=== PATIENT | male | born 1940 | race Caucasian/White ===

== ENCOUNTER 2023-07-11 08:00 | Outpatient (OUT) | payer OTHER, SELFPAY ==
[2023-07-11] MEDS: COVID VAC 23-24(12UP)MODERNA/PF 50 MCG/0.5 ML VIAL IM (15:00)
== END 2023-07-11 08:01 | disposition home or self-care (01) ==
LOC: VACCLI 09-02 15:11
DX: Z23 Encounter for immunization (principal)
CPT/HCPCS: 90480; 91322

== ENCOUNTER 2024-01-01 08:04 | Outpatient (OUT) | payer OTHER, SELFPAY ==
--- OUTSIDE RECORDS SUMMARY | 2024-01-01 08:09 | XMS_ITS | CCD ---
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 Name Role Phone SELF, REFERRED Referring Unavailable ELTAHAWY, EHAB A Admitting Unavailable ELTAHAWY, EHAB A Attending Unavailable SELF, REFERRED Primary Care Unavailable MONICA, DR GEORGE Admitting Unavailable MONICA, DR GEORGE Attending Unavailable MONICA, DR GEORGE Primary Care Unavailable MONICA, DR GEORGE Consulting Unavailable DR TANNER KNIGSTON Admitting Unavailable VASHTI, DR HART Attending Unavailable MONICA, DR GEORGE Primary Care Unavailable DR TANNER KINGSTON Consulting Unavailable HERMINIA LUA Attending Unavailable Problems Problem Classification Problem Date Documented Date Episodic/Chronic Chronic kidney disease (1 source) Chronic kidney disease, stage 2 (mild); Translations: [CHRONIC KIDNEY DISEASE STAGE 2 MILD] Onset: 07-23-2022 Chronic Coronary atherosclerosis and other heart disease (2 sources) Atherosclerotic heart disease of [place] coronary artery without angina pectoris; Translations: [Atherosclerotic heart disease of [place] coronary artery without angina pectoris] Onset: 04-24-2023 Chronic Disorders of lipid metabolism (2 sources) Mixed hyperlipidemia; Translations: [Mixed hyperlipidemia] Onset: 04-24-2023 Chronic Essential hypertension (2 sources) Essential (primary) hypertension; Translations: [Essential (primary) hypertension] Onset: 04-24-2023 Chronic Hypertension with complications and secondary hypertension (4 sources) Hypertensive chronic kidney disease with stage 1 through stage 4 chronic kidney disease, or unspecified chronic kidney disease; Translations: [HTN CKD W/STAGE 1-4 CKD/UNS CKD] Onset: 07-18-2022 Chronic Other screening for suspected conditions (not mental disorders or infectious disease) (1 source) Encounter for screening for lipoid disorders; Translations: [ENC SCREENING FOR LIPOID DISORDERS] Onset: 07-23-2022 Episodic Results Test Name Value Interpretation Reference Range Facility Office Visiton 04-24-2023 Follow-up visit [id number] Jordan Duran 1940 M Date Provider Department Center 04/24/2023 HERMINIA STONE [facility] No family history on file Level of Service:08980 [place] OFFICE/OUTPATIENT ESTABLISHED LOW MDM 20-29 MIN Reason for Visit and Comments: Follow-up [052635] - Yearly F/U Normal [facility] LIPID PROFILEon 07-18-2022 CHOL-HDL RATIO NORM SEE BELOW Normal [facility] Comment on above: Result Comment: 3.3 - 4.4 LOW RISK 4.4 - 7.1 AVERAGE RISK 7.1 - 11.0 MODERATE RISK >11.0 HIGH RISK Performed By: #### L IPID, CMP #### [facility] [address] [address] [address] Yessica Rodriguez Cholesterol [Mass/Vol] 172 mg/dL Normal <=200 [facility] Comment on above: Performed By: #### L IPID, CMP #### [facility] [address] [address] [address] Yessica Rodriguez Cholesterol in HDL [Mass/Vol] 74 mg/dL Critically high 40-60 [facility] Comment on above: Performed By: #### L IPID, CMP #### [facility] [address] [address] [address] Yessica Rodriguez Cholesterol in LDL [Mass/Vol] 79.4 mg/dL Normal [facility] Comment on above: Performed By: #### L IPID, CMP #### [facility] [address] [address] [address] Yessica Rodriguez Cholesterol.total/C holesterol in HDL [Mass ratio] 2.3 {ratio} Normal [facility] Comment on above: Performed By: #### L IPID, CMP #### [facility] [address] [address] [address] Yessica Rodriguez HDL NORMAL > or = 60 mg/dl - LO W CARDIOVASCULAR RISK <40 mg/dl - HIGH CARDIOVASCULAR RISK Normal [facility] Comment on above: Performed By: #### L IPID, CMP #### [facility] [address] [address] [address] Yessica Rodriguez LDL CALC NORMAL SEE BELOW Normal [facility] Comment on above: Result Comment: <100 mg/dl OPTIMAL 100 - 129 mg/dl NEAR OR ABOVE OPTIMAL 130 - 159 mg/dl BORDERLINE HIGH 160 - 189 mg/dl HIGH >190 mg/dl VERY HIGH Performed By: #### L IPID, CMP #### [facility] [address] [place] [address] Dr. Yessica Rodriguez Triglyceride [Mass/Vol] 93 mg/dL Normal <=150 [facility] Comment on above: Performed By: #### L IPID, CMP #### [facility] [address] [place] [address] Dr. Yessica Rodriguez VLDL CALC 18.6 mg/dL Normal [facility] Comment on above: Performed By: #### L IPID, CMP #### [facility] [address] [place] [address] Dr. Yessica Rodriguez PROF 14(COMP METB)on 022 Albumin [Mass/Vol] 4.0 g/dL Normal 3.4-5.0 [facility] Comment on above: Performed By: #### L IPID, CMP #### [facility] [address] [place] [address] Dr. Yessica Rodriguez Albumin/Globulin [Mass ratio] 1.4 {ratio} Normal [facility] Comment on above: Performed By: #### L IPID, CMP #### [facility] [address] [place] [address] Dr. Yessica Rodriguez ALP [Catalytic activity/Vol] 66 U/L Normal 46-116 [facility] Comment on above: Performed By: #### L IPID, CMP #### [facility] [address] [place] [address] Dr. Yessica Rodriguez ALT [Catalytic activity/Vol] 34 U/L Normal 16-63 [facility] Comment on above: Performed By: #### L IPID, CMP #### [facility] [address] [place] [address] Dr. Yessica Rodriguez Anion gap [Moles/Vol] 9.0 mmol/L Normal [facility] Comment on above: Performed By: #### L IPID, CMP #### [facility] [address] [place] [address] Dr. Yessica Rodriguez AST [Catalytic activity/Vol] 30 U/L Normal 15-37 [facility] Comment on above: Performed By: #### L IPID, CMP #### [facility] [address] [address] [address] Yessica Rodriguez Bilirubin [Mass/Vol] 0.9 mg/dL Normal 0.2-1.0 [facility] Comment on above: Performed By: #### L IPID, CMP #### [facility] [address] [place] [address] Dr. Yessica Rodriguez Calcium [Mass/Vol] 8.9 mg/dL Normal 8.5-10.1 [facility] Comment on above: Performed By: #### L IPID, CMP #### [facility] [address] [place] [address] Dr. Yessica Rodriguez Chloride [Moles/Vol] 101 mmol/L Normal 98-107 [facility] Comment on above: Performed By: #### L IPID, CMP #### [facility] [address] [place] [address] Dr. Yessica Rodriguez CO2 [Moles/Vol] 30.7 mmol/L Normal 21.0-32.0 [facility] Comment on above: Performed By: #### L IPID, CMP #### [facility] [address] [place] [address] Dr. Yessica Rodriguez Creatinine [Mass/Vol] 1.06 mg/dL Normal 0.70-1.30 [facility] Comment on above: Performed By: #### L IPID, CMP #### [facility] [address] [place] [address] Dr. Yessica Rodriguez EGFR-AF PAKISTANI >60 Normal >=60 [facility] Comment on above: Performed By: #### L IPID, CMP #### [facility] [address] [place] [address] Dr. Yessica Rodriguez EGFR-NON AF [place]ANI >60 Normal >=60 [facility] Comment on above: Performed By: #### L IPID, CMP #### [facility] [address] [address] [address] Yessica Rodriguez Globulin (S) [Mass/Vol] 2.9 g/dL Normal [facility] Comment on above: Performed By: #### L IPID, CMP #### [facility] [address] [address] [address] Yessica Rodriguez Glucose [Mass/Vol] 96 mg/dL Normal 74-106 [facility] Comment on above: Performed By: #### L IPID, CMP #### [facility] [address] [address] [address] Yessica Rodriguez Potassium [Moles/Vol] 3.7 mmol/L Normal 3.5-5.1 [facility] Comment on above: Performed By: #### L IPID, CMP #### [facility] [address] [place] [address] Dr. Yessica Rodriguez Protein [Mass/Vol] 6.9 g/dL Normal 6.4-8.2 [facility] Comment on above: Performed By: #### L IPID, CMP #### [facility] [address] [place] [address] Dr. Yessica Rodriguez Sodium [Moles/Vol] 137 mmol/L Normal 136-145 [facility] Comment on above: Performed By: #### L IPID, CMP #### [facility] [address] [place] [address] Dr. Yessica Rodriguez Urea nitrogen [Mass/Vol] 13.0 mg/dL Normal 7.0-18.0 [facility] Comment on above: Performed By: #### L IPID, CMP #### [facility] [address] [place] [address] Dr. Yessica Rodriguez Urea nitrogen/Creatinine [Mass ratio] 12.3 mg/mg Normal [facility] Comment on above: Performed By: #### L IPID, CMP #### [facility] [address] [place] [address] Dr. Yessica Rodriguez Cardiovascular Lab Reporton 07-06-2021 Cardiovascular Lab Report [facility] Patient Name: [facility] A MR #: [id number] Department of Physician: Helen Martinez M.D. Division of Service Date: 07/05/2021 Cardiology Birthdate: 1940 Adult Cardiovascular Room #: [facility] [address] [place], [place] [address] Cardiovascular Laboratory Report IMPRESSIONS: 1. 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 2. Qsvv-gd-hiueance disease of the left anterior descending coronary artery. 3. Ectasia of the right coronary artery with sluggish flow consistent with endothelial dysfunction. 4. Normal left ventricular systolic function by noninvasive imaging. RECOMMENDATIONS: 1. Will refer the patient to our electrophysiology colleagues for consideration of a permanent pacemaker given symptomatic bradyarrhythmias on beta lucy therapy. 2. Aggressive cardiovascular risk factor modification. 3. Continue guideline directed medical therapy including aspirin, high-intensity statin therapy, and angiotensin-converting enzyme inhibitor and ultimately a beta-lucy once the patient undergoes pacemaker placement. 4. Follow up with Dr. Cabrera in the next 1 to 2 months. 5. Follow up with his family physician as scheduled. PROCEDURES: Limited femoral angiography, bilateral selective coronary angiography, placement of a 6-[place] MynxGrip closure device. METHODS: After risks, benefits, and alternatives were explained, written informed consent was obtained. The patient was prepped and draped in usual sterile fashion over both groins. Using 1% lidocaine solution, local infiltration anesthesia was achieved. Using the modified Seldinger technique and a micropuncture kit, access of the right common femoral artery was obtained. A 6-Guatemalan 11 cm sheath was inserted without difficulty. Angiography via the femoral sheath was performed. Bilateral selective coronary angiography was performed using JL4 and JR4 catheters. After reviewing the images, it was elected to conclude the procedure. All catheters were removed. A 6-[place] MynxGrip closure device was deployed per protocol achieving optimal hemostasis. Overall, the patient tolerated the procedure well. There were no overt complications. He was to be transferred to the holding area in stable condition. FINDINGS: Hemodynamics. AO 106/57. LEFT VENTRICULOGRAPHY: This was not performed. Ejection fraction is normal by noninvasive imaging. CORONARY ARTERIES: Left main coronary artery. This arises from the left coronary cusp. It bifurcates into the left anterior descending and left circumflex coronary artery. This shows a 20% to 30% ostial stenosis. Left anterior descending coronary artery. This shows a 30% mid vessel stenosis and a 40% mid to distal vessel stenosis. It is a wrap-around vessel. Left circumflex coronary artery. This shows ectasia in the proximal and midportion of the vessels. It gives rise to a minute first obtuse marginal followed by a large branching second obtuse marginal. The 3rd obtuse marginal shows a 90% to 95% stenosis at the bifurcation in the distal portion of the vessel. This is a small caliber distal vessel measuring 2 mm or less in size. There is a prominent recurrent atrial branch arising from the AV groove. Right coronary artery. This is a large dominant vessel with an anterior takeoff. There slow flow consistent with endothelial dysfunction. No high-grade focal stenosis is seen. Limited femoral angiography shows a high bifurcation and anatomy suitable for closure device. INDICATIONS: Bradyarrhythmias, ventricular ectopy. Electronically Signed by: Jesse Cabrera M.D. 07/11/2021 06:14 P Jesse Cabrera M.D. Date Dict: 07/05/2021/01:59 P/Jesse Cabrera M.D. Date Trans: 07/06/2021 02:39 A/laina [id number] Normal [facility] Encounters Encounter Date Encounter Type Care Provider Facility Start: 04-24-2023 End: 04-24-2023 ambulatory HERMINIA LUA [facility] Start: 08-15-2022 End: 08-16-[address] TANNER KINGSTON Facility:[facility] Start: 07-18-2022 End: 07-19-[address] ARIEL ANDERSON Facility:[facility] Start: 07-05-2021 End: 07-06-2021 ambulatory REFERRED SELF Facility:[facility] Payers Date Payer Category Payer Medicare [id number] 1960 Self-pay 1940 Unknown [id number] 1940 Unknown [id number] Unknown [id number] Progress note 04-24-2023 Note Date & Type Note Facility 04-24-2023 Note Continue lipitor [facility] Progress note 04-24-2023 Note Date & Type Note Facility 04-24-2023 Note Coronary artery dise ase is stable without any concerning symptoms Continue GDMT- ASA, lipitor, metoprolol and lisinopril continue risk factor modifications- heart healthy diet, regular exercise as tolerated and continue all medications. [facility] Progress note 04-24-2023 Note Date & Type Note Facility 04-24-2023 Note Hypertension is well controlled at home and most likely white coat syndrome in office today Continue lisiopril, metoprolol [facility] Progress note 04-24-2023 Note Date & Type Note Facility 04-24-2023 Note [facility] PROGR ESS NOTE HPI: Joo Duran is a 82 y.o. male here for Follow-up (Yearly F/U) HPI 82 yo presents today for routine f/U for CAD, HTN, PVC Currently denied any activity limiting symptoms other than arthritis issues. 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 States b/p at home is typically 120-130/70 was 124/66 yesterday evening Review of Systems Constitutional: Negative. Respiratory: Negative. Cardiovascular: Negative. Neurological: Negative. All other systems reviewed and are negative. Visit Vitals BP 148/68 (BP Location: Left arm, Patient Position: Sitting) Pulse 71 Wt 74.4 kg (164 lb) SpO2 98% BMI 26.47 kg/m??? Smoking Status Former BSA 1.86 m??? No Known Allergies Medications: Current Outpatient Medications on File Prior to Visit Medication Sig Dispense Refill aspirin 81 mg EC tablet Take 1 tablet by mouth in the morning. atorvastatin (Lipitor) 40 mg tablet Take 1 tablet by mouth in the morning. lisinopril 40 mg tablet Take 40 mg by mouth in the morning. magnesium oxide 400 mg magnesium capsule Take 1 capsule every day by oral route. nabumetone (Relafen) 750 mg tablet Take 2 tablets by mouth in the morning. omeprazole (PriLOSEC) [address] capsule 20 mg 1 (one) time each day. ibuprofen (Motrin) 150 mg split tablet Use 1 capsule in the mouth or throat 1 (one) time each day. metoprolol tartrate (Lopressor) 25 mg tablet Take 1 tablet by mouth with breakfast and with evening meal. potassium gluconate 2.5 mEq tablet in the morning. potassium gluconate 2.5 mEq tablet Take 1 tablet by mouth in the morning. No current facility-administered medications on file prior to visit. Physical Exam: Constitutional: Appearance: Normal appearance. Without apparent distress HENT: Head: Normocephalic and atraumatic. Nose: Nose normal. Mouth/Throat: Mouth: Mucous membranes are moist. Eyes: Extraocular Movements: Extraocular movements intact. Conjunctiva/sclera: Conjunctivae normal. Neck: Vascular: No JVD. Cardiovascular: Rate and Rhythm: Normal rate and regular rhythm. Pulses: Dorsalis pedis pulses are 3 on the right side and 3on the left side. Posterior tibial pulses are 3 on the right side and 3 on the left side. Heart sounds: Normal heart sounds, S1 normal and S2 normal. Pulmonary: Effort: Pulmonary effort is normal. Breath sounds: Normal breath sounds. Abdominal: General: Bowel sounds are normal. Palpations: Abdomen is soft. Musculoskeletal: General: Normal range of motion. Cervical back: Normal range of motion. Right lower leg: No edema. Left lower leg: No edema. Skin: General: Skin is warm and dry. Capillary Refill: Capillary refill takes less than 2 seconds. Neurological: General: No focal deficit present. Mental Status: alert and oriented to person, place, and time. Psychiatric: Mood and Affect: Mood normal. Behavior: Behavior normal. Thought Content: Thought content normal. Judgment: Judgment normal. Labs: 07/18/22 BUN 13, CR 1.06- normal K+ 3.7 normal Liver function normal Chol 172, HDL 74, Trig 93, LDL 79.4- much improved 09/30/2019 Chol 246, Hdl 66, Trig 114, LDL 157.2 Last lab values have been reviewed CV Testing: Cardiovascular Laboratory Report 07/05/21 IMPRESSIONS: 1. 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 2. Dyap-ud-hswtsdqp disease of the left anterior descending coronary artery. 3. Ectasia of the right coronary artery with sluggish flow consistent with endothelial dysfunction. 4. Normal left ventricular systolic function by noninvasive imaging. RECOMMENDATIONS: 1. Will refer the patient to our electrophysiology colleagues for consideration of a permanent pacemaker given symptomatic bradyarrhythmias on beta lucy therapy. 2. Aggressive cardiovascular risk factor modification. 3. Continue guideline directed medical therapy including aspirin, high-intensity statin therapy, and angiotensin-converting enzyme inhibitor and ultimately a beta-lucy once the patient undergoes pacemaker placement. 4. Follow up with Dr. Cabrera in the next 1 to 2 months. 5. Follow up with his family physician as scheduled. PROCEDURES: Limited femoral angiography, bilateral selective coronary angiography, placement of a 6-[place] MynxGrip closure device. Echocardiogram 05/2021 Global left ventricular systolic function is normal; EF 60 to 65%. Normal diastolic function. Mild aortic regurgitation. Normal right-sided pressures. No pericardial effusion. nvestigations: Echo 10/30/21: The left ventricle is normal size. Global left ventricular systolic function is at lower limits of normal. The EF is 50 % visually. Interventricular septal thickness is increased in the proximal portion. The septum is abnormal in its motion; maybe du (more content not included)... [facility] Progress note 04-24-2023 Note Date & Type Note Facility 04-24-2023 Note Review of Systems All other systems reviewed and are negative. [facility] Summary Purpose Family History No Family History Records FoundNo Family History Records FoundNo Family History Records Found Advance Directives No Advanced Directives Records FoundNo Advanced Directives Records FoundNo Advanced Directives Records Found Additional Source Comments (unrecognized sect ion and content) No Status Records FoundNo Status Records FoundNo Status Records Found INFORMATION SOURCE (unrecogn ized section and content) DATE CREATED AUTHOR 07/11/2021 [facility] DATE CREATED AUTHOR AUTHOR'S ORGANIZ ATION 08/16/2022 [facility] DATE CREATED AUTHOR AUTHOR'S ORGANIZ ATION 04/25/2023 [facility] FOR RECORDS PERTAINING TO PATIENTS WHO ARE OR HAVE BEEN ENROLLED IN A CHEMICAL DEPENDENCY/SUBSTANCEABUSE PROGRAM, SOME INFORMATION MAY BE OMITTED. This clinical summary was aggregated from multiple sources. Caution should be exercised in using it in the provision of clinical care. This summary normalizes information from multiple sources, and as a consequence, information in this document may materially change the coding, format and clinical context of patient data. In addition, data may be omitted in some cases. CLINICAL DECISIONS SHOULD BE BASED ON THE PRIMARY CLINICAL RECORDS. [facility] [employer] [facility]. provides no warranty or guarantee of the accuracy or completeness of information in this document.
[2024-01-01 09:42] LABS: Alanine Aminotransferase 34 U/L (16-63); Albumin Globulin Ratio 1.1; Albumin Level 3.5 g/dL (3.4-5.0); Alkaline Phosphatase 95 U/L (46-116); Anion Gap 14.6; Aspartate Amino Transferase 42 U/L (15-37); BUN Creatinine Ratio 7.6; Carbon Dioxide 27.1 mmol/L (21.0-32.0); Chloride 102 mmol/L (98-107); Chol HDL Ratio 1.8; Cholesterol 152 mg/dL (<=200); Estimated GFR (African America >60 (>=60); Estimated GFR (Non-African Ame 52 (>=60); Globulin 3.1 g/dL; Glucose 94 mg/dL (74-106); HDL Cholesterol 86 mg/dL (40-60); Potassium 4.7 mmol/L (3.5-5.1); Sodium 139 mmol/L (136-145); Total Protein 6.6 g/dL (6.4-8.2); Triglycerides 36 mg/dL (<=150); VLDL CHOLESTEROL 7.2 mg/dL
== END 2024-01-01 08:05 | disposition home or self-care (01) ==
LOC: LAB 08:06
PROVIDERS: PCP Family Medicine; Visit Provider Family Medicine
DX: E78.2 Mixed hyperlipidemia (principal); I12.9 Hypertensive chronic kidney disease with stage 1 through stage 4 chronic kidney disease, or unspecified chronic kidney disease; N18.2 Chronic kidney disease, stage 2 (mild)
CPT/HCPCS: 36415; 80053; 80061

== ENCOUNTER 2025-01-22 08:25 | Outpatient (OUT) | payer OTHER, SELFPAY ==
[2025-01-22 09:24] LABS: Alanine Aminotransferase 39 U/L (16-63); Albumin Globulin Ratio 1.2; Albumin Level 3.7 g/dL (3.4-5.0); Alkaline Phosphatase 80 U/L (46-116); Anion Gap 12.5; Aspartate Amino Transferase 35 U/L (15-37); BUN Creatinine Ratio 12.1; Bilirubin Total 0.7 mg/dL (0.2-1.0); Calcium 8.7 mg/dL (8.5-10.1); Chloride 97 mmol/L (98-107); Chol HDL Ratio 1.9; Cholesterol 157 mg/dL (<=200); Estimated GFR (African America >60 (>=60 mL/min/1.73m^2); Estimated GFR (Non-African Ame >60 (>=60 mL/min/1.73m^2); Glucose 89 mg/dL (74-106); HDL Cholesterol 83 mg/dL (40-60); Potassium 4.5 mmol/L (3.5-5.1); Sodium 131 mmol/L (136-145); Total Protein 6.7 g/dL (6.4-8.2); Triglycerides 123 mg/dL (<=150); VLDL CHOLESTEROL 24.6 mg/dL
== END 2025-01-22 08:26 | disposition home or self-care (01) ==
LOC: LAB 08:30
PROVIDERS: PCP Family Medicine; Visit Provider Family Medicine
DX: E78.2 Mixed hyperlipidemia (principal); I12.9 Hypertensive chronic kidney disease with stage 1 through stage 4 chronic kidney disease, or unspecified chronic kidney disease; N18.31 Chronic kidney disease, stage 3a; Z13.1 Encounter for screening for diabetes mellitus
CPT/HCPCS: 36415; 80053; 80061

== ENCOUNTER 2025-06-02 07:48 | Outpatient (OUT) | payer OTHER, SELFPAY ==
--- OUTSIDE RECORDS SUMMARY | 2025-06-02 07:53 | XMS_ITS | CCD ---
Author Organization [facility] CliniSyin Care Team Providers Care Doctor Naturopathic Name Role Phone SELF, REFERRED Referring Unavailable ELTAHAWY, EHAB A Admitting Unavailable ELTAHAWY, EHAB A Attending Unavailable SELF, REFERRED Primary Care Unavailable MONICA, DR GEORGE Admitting Unavailable MONICA, DR GEORGE Attending Unavailable MONICA, DR GEORGE Primary Care Unavailable MONICA, DR GEORGE Consulting Unavailable VASHTI, DR HART Admitting Unavailable VASHTI, DR HART Attending Unavailable MONICA, DR GEORGE Primary Care Unavailable VASHTI, DR HART Consulting Unavailable Ariel Anderson MD Unavailable Ariel Anderson MD Primary Care Provider Ariel Anderson MD Unavailable [phone] Ariel Anderson MD Primary Care Provider Ariel Anderson MD Unavailable [phone] Ariel Anderson MD Primary Care Provider [phone] ARIEL ANDERSON Attending Unavailable ARIEL ANDERSON Attending Unavailable ARIEL ANDERSON Attending Unavailable Jr. Marcial Borrero DO Unavailable Jesse Cabrera MD Unavailable Antonina Albrecht MD Unavailable VALERIA STOKES Attending Unavailable Medications Current Medications Medication Drug Class(es) Dates Sig (Normalized) Sig (Original) amLODIPine 5 mg oral tablet (16 sources) Dihydropyridine Calcium Channel Irvin Start: 01-27-2024 End: 07-27-2025 take 1 tablet by mouth once daily amLODIPine (Norvasc) 5 MG tablet Indications: Essential hypertension Take 1 tablet (5 mg) by mouth Daily 90 tablet 1 01/28/2025 07/27/2025 Active aspirin 81 mg delayed release oral tablet (12 sources) Platelet Aggregation Inhibitor, Nonsteroidal Anti-inflammatory Drug aspirin 81 MG EC tablet 81 mg in the morning. Active atorvastatin 40 mg oral tablet (16 sources) HMG-CoA Reductase Inhibitor Start: 01-27-2024 End: 07-27-2025 take 1 tablet by mouth once daily atorvastatin (Lipitor) 40 MG tablet Indications: Mixed hyperlipidemia Take 1 tablet (40 mg) by mouth Daily 90 tablet 1 01/28/2025 07/27/2025 Active lisinopril 40 mg oral tablet (16 sources) Angiotensin Converting Enzyme Inhibitor Start: 01-27-2024 End: 07-27-2025 take 1 tablet by mouth once daily lisinopril 40 MG tablet Indications: Essential hypertension Take 1 tablet (40 mg) by mouth Daily 90 tablet 1 01/28/2025 07/27/2025 Active magnesium oxide 400 mg oral tablet (12 sources) take 1 tablet by mouth in the morning magnesium oxide (Mag-Ox) 400 MG tablet Take 400 mg by mouth in the morning. Active nabumetone 750 mg oral tablet (12 sources) Nonsteroidal Anti-inflammatory Drug Start: 01-27-2024 take 2 tablets by mouth once daily nabumetone (Relafen) 750 MG tablet Indications: Arthritis of carpometacarpal (CMC) joint of right thumb TAKE 2 TABLETS BY MOUTH EVERY DAY 180 tablet 1 01/27/2024 Active omeprazole 20 mg delayed release oral capsule (16 sources) Proton Pump Inhibitor Start: 01-27-2024 End: 07-27-2025 take 1 capsule by mouth before mealtime omeprazole (PriLOSEC) [address] capsule Indications: Gastroesophageal reflux disease without esophagitis Take 1 capsule (20 mg) by mouth in the morning. Take before meals. Do not crush or chew. 90 capsule 1 01/28/2025 07/27/2025 Active potassium gluconate 2.6 meq oral tablet (12 sources) take 1 tablet by mouth once daily Potassium Gluconate 2.5 MEQ tablet Take 1 tablet by mouth 1 (one) time each day. Active Problems Active Problems Problem Classification Problem Date Documented Date Episodic/Chronic Cardiac dysrhythmias (20 sources) Sick sinus syndrome; Translations: [Sick sinus syndrome] Onset: 08-21-2021 02-26-2023 Chronic Chronic kidney disease (17 sources) Chronic kidney disease, stage 2 (mild); Translations: [Chronic kidney disease stage 2] Onset: 07-23-2022 02-26-2023 Chronic Conduction disorders (12 sources) First degree atrioventricular block; Translations: [Atrioventricular block, first degree] Onset: 02-26-2023 02-26-2023 Chronic Coronary atherosclerosis and other heart disease (14 sources) Coronary arteriosclerosis; Translations: [Atherosclerotic heart disease of [place] coronary artery without angina pectoris] Onset: 08-21-2021 02-26-2023 Chronic Disorders of lipid metabolism (18 sources) Mixed hyperlipidemia; Translations: [Mixed hyperlipidemia] Onset: 04-24-2023 07-11-2023 Chronic Esophageal disorders (17 sources) Gastroesophageal reflux disease without esophagitis; Translations: [Gastro-esophageal reflux disease without esophagitis] Onset: 02-26-2023 02-26-2023 Chronic Essential hypertension (18 sources) Essential hypertension; Translations: [Essential (primary) hypertension] Onset: 02-26-2023 02-26-2023 Chronic Heart valve disorders (20 sources) Aortic incompetence, non-rheumatic ; Translations: [Nonrheumatic aortic (valve) insufficiency] Onset: 02-26-2023 02-26-2023 Chronic Heart valve disorders (2 sources) Cardiac murmur, unspecified; Translations: [Cardiac murmur, unspecified] Onset: 05-26-2025 Episodic Hyperplasia of prostate (12 sources) Benign prostatic hyperplasia; Translations: [Nodular prostate without lower urinary tract symptoms] Onset: 02-26-2023 02-26-2023 Chronic Hypertension with complications and secondary hypertension (20 sources) Hypertensive chronic kidney disease with stage 1 through stage 4 chronic kidney disease, or unspecified chronic kidney disease; Translations: [Hypertensive renal disease] Onset: 07-18-2022 Chronic Osteoarthritis (16 sources) 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; Translations: [Unilateral primary osteoarthritis of first carpometacarpal joint, right hand] Onset: 02-26-2023 02-26-2023 Chronic Other hereditary and degenerative nervous system conditions (12 sources) Essential tremor; Translations: [Essential tremor] Onset: 02-26-2023 02-26-2023 Chronic Other nutritional; endocrine; and metabolic disorders (16 sources) Overweight; Translations: [Overweight] Onset: 02-26-2023 02-26-2023 Episodic Other screening for suspected conditions (not mental disorders or infectious disease) (3 sources) Encounter for screening for lipoid disorders; Translations: [Patient encounter status] Onset: 07-23-2022 03-16-2025 Episodic Peripheral and visceral atherosclerosis (12 sources) Renal artery stenosis; Translations: [Atherosclerosis of renal artery] Onset: 06-26-2021 02-26-2023 Chronic Pulmonary heart disease (14 sources) Pulmonary hypertension; Translations: [Pulmonary hypertension, unspecified] Onset: 02-26-2023 02-26-2023 Chronic Residual codes; unclassified (12 sources) Dependence on enabling machine or device; Translations: [Dependence on other enabling machines and devices] Onset: 02-26-2023 02-26-2023 Chronic Residual codes; unclassified (12 sources) Obstructive sleep apnea syndrome; Translations: [Obstructive sleep apnea (adult) (pediatric)] Onset: 02-26-2023 02-26-2023 Chronic Residual codes; unclassified (12 sources) Insomnia; Translations: [Other insomnia] Onset: 02-26-2023 02-26-2023 Chronic Residual codes; unclassified (2 sources) Active advance directive (copy within chart) ; Translations: [Other specified health status] 03-16-2025 Episodic Screening and history of mental health and substance abuse codes (2 sources) Patient encounter status; Translations: [Encounter for screening examination for other mental health and behavioral disorders] 03-16-2025 Episodic Past or Other Problems Problem Classification Problem Date Documented Da te Episodic/Chronic Cardiac dysrhythmias (20 sources) Bradycardia; Translations: [Bradycardia, unspecified] Onset: 06-26-2021 Resolved: 02-17-2024 02-17-2024 Episodic Diabetes mellitus without complication (12 sources) Hyperglycemia; Translations: [Impaired fasting glucose] Onset: 02-26-2023 Resolved: 07-11-2023 07-11-2023 Episodic Genitourinary symptoms and ill-defined conditions (16 sources) Microalbuminuria; Translations: [Proteinuria, unspecified] Onset: 02-26-2023 02-26-2023 Episodic Mood disorders (12 sources) Mood disorders Onset: 02-17-2024 Resolved: 03-23-2025 02-17-2024 Other and unspecified benign neoplasm (12 sources) Polyp of colon; Translations: [Polyp of colon] Onset: 02-26-2023 02-26-2023 Episodic Other connective tissue disease (12 sources) Cramp in lower limb; Translations: [Sleep related leg cramps] Onset: 02-26-2023 Resolved: 02-17-2024 02-17-2024 Chronic Results Test Name Value Interpretation Reference Range Facility Office Visiton 05-26-2025 Follow-up visit [id number] Jordan Allen 1940 M Date Provider Department Center 05/26/2025 VALERIA OLIVERA CARD [facility] Family History Problem Relation Age of Onset Tuberculosis Father Family Status - Relation Status Age at Mother Father Level of Service:[address]126 [place] OFFICE/OUTPATIENT ESTABLISHED LOW MDM 20 MIN Reason for Visit and Comments: Follow-up [831049] - 1 year routine follow up Coronary Artery Disease [187] Hypertension [703019] Bradycardia [211321] Hyperlipidemia [182] First degree AV block [Other] Nonrheumatic mitral valve insufficiency [Other] Nonrheumatic mitral valve regurgitation [Other] Pulmonary Hypertension [818] Renal artery stenosis [Other] Sick sinus Syndrome [Other] Stage 2 chronic kidney disease [Other] Sleep Apnea [348] Obesity [[id number]] Normal [facility] ALL LIPID PROFILE (FASTING)o n 01-22-2025 CHOL HDL RATIO 1.9 [facility] Comment on above: 3.3 - 4.4 LOW RISK 4.4 - 7.1 AVERAGE RISK 7.1 - 11.0 MODERATE RISK >11.0 HIGH RISK Cholesterol [Mass/Vol] 157 mg/dL NINF - 200 mg/dL [facility] Cholesterol in HDL [Mass/Vol] 83 mg/dL High 40 - 60 mg/dL [facility] Comment on above: > or =60 mg/dl - LOW CARDIOVASCULAR RISK <40 mg/dl - HIGH CARDIOVASCULAR RISK Magnesium [Mass/Vol] 50 mg/dL [facility] Comment on above: <100 mg/dl OPTIMAL 100-129 mg/dl NEAR OR ABOVE OPTIMAL 130-159 mg/dl BORDERLINE HIGH 160-189 mg/dl HIGH >190 mg/dl VERY HIGH Triglyceride [Mass/Vol] 123 mg/dL NINF - 150 mg/dL [facility] VLDL CHOLESTEROL 24.6 mg/dL [facility] CMP (CMP) (FOR REMOTE FH C USE)on 01-22-2025 Albumin [Mass/Vol] 3.7 g/dL 3.4 - 5.0 g/dL NO [facility] ALBUMIN GLOBULIN RATIO 1.2 [facility] ALP [Catalytic activity/Vol] 80 U/L 46 - 116 U/L [facility] ALT [Catalytic activity/Vol] 39 U/L 16 - 63 U/L [facility] Anion gap [Moles/Vol] 12.5 mmol/L [facility] AST [Catalytic activity/Vol] 35 U/L 15 - 37 U/L [facility] Bilirubin [Mass/Vol] 0.7 mg/dL 0.2 - 1.0 mg/dL [facility] Calcium [Mass/Vol] 8.7 mg/dL 8.5 - 10. 1 mg/dL [facility] Chloride [Moles/Vol] 97 mmol/L Low 98 - 107 mmol/L [facility] CO2 [Moles/Vol] 26 mmol/L 21.0 - 32.0 mmol/L [facility] Creatinine [Mass/Vol] 1.07 mg/dL 0.70 - 1.30 mg/dL [facility] GFR/1.73 sq M.predicted CKD-EPI (S/P/Bld) [Vol rate/Area] >60 >=60 mL/min/1.73m 2 [facility] Globulin (S) [Mass/Vol] 3 g/dL [facility] Glucose [Mass/Vol] 89 mg/dL 74 - 106 mg/dL NO [facility] Potassium [Moles/Vol] 4.5 mmol/L 3.5 - 5.1 mmol/L [facility] Protein [Mass/Vol] 6.7 g/dL 6.4 - 8.2 g/dL NO [facility] Sodium [Moles/Vol] 131 mmol/L Low 136 - 145 mmol/L [facility] TBH EGFR-NON AF PU[place] RICAN >60 >=60 mL/min/1.73m 2 [facility] Urea nitrogen [Mass/Vol] 13 mg/dL 7.0 - 18.0 mg/dL [facility] Urea nitrogen/Creatinine [Mass ratio] 12.1 mg/mg [facility] No Panel Informationon 01-22 Interpretation and review of laboratory results Abnormal [facility] LIPID PROFILEon 07-18-2022 CHOL-HDL RATIO NORM SEE BELOW Normal [facility] Comment on above: Result Comment: 3.3 - 4.4 LOW RISK 4.4 - 7.1 AVERAGE RISK 7.1 - 11.0 MODERATE RISK >11.0 HIGH RISK Performed By: #### L IPID, CMP #### [facility] [address] [address] [address] Yessica Rdoriguez Cholesterol [Mass/Vol] 172 mg/dL Normal <=200 [facility] Comment on above: Performed By: #### L IPID, CMP #### [facility] [address] [address] [address] Yessica Rodriguez Cholesterol in HDL [Mass/Vol] 74 mg/dL Critically high 40-60 [facility] Comment on above: Performed By: #### L IPID, CMP #### [facility] [address] [address] [address] Yessica Rodriguez Cholesterol in LDL [Mass/Vol] 79.4 mg/dL Normal [facility] Comment on above: Performed By: #### L IPID, CMP #### [facility] [address] [address] [address] Yessica Rodriguez Cholesterol.total/C holesterol in HDL [Mass ratio] 2.3 {ratio} Normal [facility] Comment on above: Performed By: #### L IPID, CMP #### [facility] [address] [address] [address] Yessica Rodriguez HDL NORMAL > or = 60 mg/dl - LO W CARDIOVASCULAR RISK <40 mg/dl - HIGH CARDIOVASCULAR RISK Normal [facility] Comment on above: Performed By: #### L IPID, CMP #### [facility] [address] [address] [address] Yessica Rodriguez LDL CALC NORMAL SEE BELOW Normal [facility] Comment on above: Result Comment: <100 mg/dl OPTIMAL 100 - 129 mg/dl NEAR OR ABOVE OPTIMAL 130 - 159 mg/dl BORDERLINE HIGH 160 - 189 mg/dl HIGH >190 mg/dl VERY HIGH Performed By: #### L IPID, CMP #### [facility] [address] [address] [address] Yessica Rodriguez Triglyceride [Mass/Vol] 93 mg/dL Normal <=150 [facility] Comment on above: Performed By: #### L IPID, CMP #### [facility] [address] [place] [address] Dr. Yessica Rodriguez VLDL CALC 18.6 mg/dL Normal [facility] Comment on above: Performed By: #### L IPID, CMP #### [facility] [address] [place] [address] Dr. Yessica Rodriguez PROF 14(COMP METB)on 022 Albumin [Mass/Vol] 4.0 g/dL Normal 3.4-5.0 [facility] Comment on above: Performed By: #### L IPID, CMP #### [facility] [address] [place] [address] Dr. Yessica Rodriguez Albumin/Globulin [Mass ratio] 1.4 {ratio} Normal [facility] Comment on above: Performed By: #### L IPID, CMP #### [facility] [address] [place] [address] Dr. Yessica Rodriguez ALP [Catalytic activity/Vol] 66 U/L Normal 46-116 [facility] Comment on above: Performed By: #### L IPID, CMP #### [facility] [address] [place] [address] Dr. Yessica Rodriguez ALT [Catalytic activity/Vol] 34 U/L Normal 16-63 [facility] Comment on above: Performed By: #### L IPID, CMP #### [facility] [address] [place] [address] Dr. Yessica Rodriguez Anion gap [Moles/Vol] 9.0 mmol/L Normal [facility] Comment on above: Performed By: #### L IPID, CMP #### [facility] [address] [place] [address] Dr. Yessica Rodriguez AST [Catalytic activity/Vol] 30 U/L Normal 15-37 [facility] Comment on above: Performed By: #### L IPID, CMP #### [facility] [address] [place] [address] Dr. Yessica Rodriguez Bilirubin [Mass/Vol] 0.9 mg/dL Normal 0.2-1.0 [facility] Comment on above: Performed By: #### L IPID, CMP #### [facility] [address] [place] [address] Dr. Yessica Rodriguez Calcium [Mass/Vol] 8.9 mg/dL Normal 8.5-10.1 [facility] Comment on above: Performed By: #### L IPID, CMP #### [facility] [address] [place] [address] Dr. Yessica Rodriguez Chloride [Moles/Vol] 101 mmol/L Normal 98-107 [facility] Comment on above: Performed By: #### L IPID, CMP #### [facility] [address] [place] [address] Dr. Yessica Rodriguez CO2 [Moles/Vol] 30.7 mmol/L Normal 21.0-32.0 [facility] Comment on above: Performed By: #### L IPID, CMP #### [facility] [address] [place] [address] Dr. Yessica Rodriguez Creatinine [Mass/Vol] 1.06 mg/dL Normal 0.70-1.30 [facility] Comment on above: Performed By: #### L IPID, CMP #### [facility] [address] [place] [address] Dr. Yessica Rodriguez EGFR-AF [place] RICAN >60 Normal >=60 [facility] Comment on above: Performed By: #### L IPID, CMP #### [facility] [address] [place] [address] Dr. Yessica Rodriguez EGFR-NON AF PUERTO RICAN >60 Normal >=60 [facility] Comment on above: Performed By: #### L IPID, CMP #### [facility] [address] [place] [address] Dr. Yessica Rodriguez Globulin (S) [Mass/Vol] 2.9 g/dL Normal [facility] Comment on above: Performed By: #### L IPID, CMP #### [facility] [address] [place] [address] Dr. Yessica Rodriguez Glucose [Mass/Vol] 96 mg/dL Normal 74-106 [facility] Comment on above: Performed By: #### L IPID, CMP #### [facility] [address] [address] [address] Yessica Rodriguez Potassium [Moles/Vol] 3.7 mmol/L Normal 3.5-5.1 [facility] Comment on above: Performed By: #### L IPID, CMP #### [facility] [address] [address] [address] Yessica Rodriguez Protein [Mass/Vol] 6.9 g/dL Normal 6.4-8.2 [facility] Comment on above: Performed By: #### L IPID, CMP #### [facility] [address] [place] [address] Dr. Yessica Rodriguez Sodium [Moles/Vol] 137 mmol/L Normal 136-145 [facility] Comment on above: Performed By: #### L IPID, CMP #### [facility] [address] [place] [address] Dr. Yessica Rodriguez Urea nitrogen [Mass/Vol] 13.0 mg/dL Normal 7.0-18.0 [facility] Comment on above: Performed By: #### L IPID, CMP #### [facility] [address] [place] [address] Dr. Yessica Rodriguez Urea nitrogen/Creatinine [Mass ratio] 12.3 mg/mg Normal [facility] Comment on above: Performed By: #### L IPID, CMP #### [facility] [address] [place] [address] Dr. Yessica Rodriguez Cardiovascular Lab Reporton 07-06-2021 Cardiovascular Lab Report [facility] Patient Name: Joo Allen [facility] MR #: [id number] Department of Physician: Helen Martinez M.D. Division of Service Date: 07/05/2021 Cardiology Birthdate: 1940 Adult Cardiovascular Room #: [place] [address] Cardiovascular Laboratory Report IMPRESSIONS: 1. 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 2. Smre-np-vpdtcdsp disease of the left anterior descending coronary artery. 3. Ectasia of the right coronary artery with sluggish flow consistent with endothelial dysfunction. 4. Normal left ventricular systolic function by noninvasive imaging. RECOMMENDATIONS: 1. Will refer the patient to our electrophysiology colleagues for consideration of a permanent pacemaker given symptomatic bradyarrhythmias on beta irvin therapy. 2. Aggressive cardiovascular risk factor modification. 3. Continue guideline directed medical therapy including aspirin, high-intensity statin therapy, and angiotensin-converting enzyme inhibitor and ultimately a beta-irvin once the patient undergoes pacemaker placement. 4. Follow up with Dr. Cabrera in the next 1 to 2 months. 5. Follow up with his family physician as scheduled. PROCEDURES: Limited femoral angiography, bilateral selective coronary angiography, placement of a 6-[place] MynxGrip closure device. METHODS: After risks, benefits, and alternatives were explained, written informed consent was obtained. The patient was prepped and draped in usual sterile fashion over both groins. Using 1% lidocaine solution, local infiltration anesthesia was achieved. Using the modified Seldinger technique and a micropuncture kit, access of the right common femoral artery was obtained. A 6-[place]ican 11 cm sheath was inserted without difficulty. Angiography via the femoral sheath was performed. Bilateral selective coronary angiography was performed using JL4 and JR4 catheters. After reviewing the images, it was elected to conclude the procedure. All catheters were removed. A 6-[place] MynxGrip closure device was deployed per protocol [...] Cabrera M.D. Date Trans: 07/06/2021 02:39 A/laina [id number] Normal [facility] Vital Signs Date Time Vital Sign Value Performing Clinician Charlie duran 03-23-2025 10:240400 Body height 167.6 cm Ariel Anderson MD Work Phone: [facility] 03-23-2025 10:24-0400 Body mass index (BMI) [Ratio] 26.31 kg/m2 Ariel Anderson MD Work Phone: [facility] 03-23-2025 10:24-0400 Body weight 73.94 kg Ariel Anderson MD Work Phone: [facility] 03-23-2025 10:24-0400 Diastolic blood pressure 76 mm[Hg] Ariel Anderson MD Work Phone: [facility] 03-23-2025 10:24-0400 Heart rate 84 /min Ariel Anderson MD Work Phone: [facility] 03-23-2025 10:24-0400 SaO2% (BldA) [Mass fraction] 98 % Ariel Anderson MD Work Phone: [facility] 03-23-2025 10:24-0400 Systolic blood pressure 120 mm[Hg] Ariel Anderson MD Work Phone: [facility] 01-28-2025 08:53-0400 Body height 167.6 cm Ariel Anderson MD Work Phone: [facility] 01-28-2025 08:53-0400 Body mass index (BMI) [Ratio] 26.47 kg/m2 Ariel Anderson MD Work Phone: [facility] 01-28-2025 08:53-0400 Body weight 74.39 kg Ariel Anderson MD Work Phone: [facility] 01-28-2025 08:53-0400 Diastolic blood pressure 68 mm[Hg] Ariel Anderson MD Work Phone: [facility] 01-28-2025 08:53-0400 Heart rate 76 /min Ariel Anderson MD Work Phone: [facility] 01-28-2025 08:53-0400 SaO2% (BldA) [Mass fraction] 99 % Ariel Anderson MD Work Phone: [facility] 01-28-2025 08:53-0400 Systolic blood pressure 128 mm[Hg] Ariel Anderson MD Work Phone: [facility] 08-03-2024 13:57-0500 Body height 167.6 cm Ariel Anderson MD Work Phone: [facility] 08-03-2024 13:57-0500 Body mass index (BMI) [Ratio] 26.47 kg/m2 Ariel Anderson MD Work Phone: [facility] 08-03-2024 13:57-0500 Body weight 74.39 kg Ariel Anderson MD Work Phone: [facility] 08-03-2024 13:57-0500 Diastolic blood pressure 64 mm[Hg] Ariel Anderson MD Work Phone: [facility] 08-03-2024 13:57-0500 Heart rate 71 /min Ariel Anderson MD Work Phone: [facility] 08-03-2024 13:57-0500 SaO2% (BldA) [Mass fraction] 98 % Ariel Anderson MD Work Phone: [facility] 08-03-2024 13:57-0500 Systolic blood pressure 120 mm[Hg] Ariel Anderson MD Work Phone: [facility] Encounters Encounter Date Encounter Type Care Provider Facility Start: 05-26-2025 End: 05-26-2025 ambulatory [facility] Start: 03-23-2025 End: 03-23-2025 Bamboo flowsheet Ariel Anderson MD Work Phone: [facility] Start: 03-23-2025 End: 03-23-2025 Bamboo flowsheet Ariel Anderson MD Work Phone: [facility] Start: 03-23-2025 End: 03-23-2025 Patient encounter procedure Ariel Anderson MD Work Phone: [facility] Comment on above: Encounter for Medica re annual wellness exam (Primary Dx); Advance directive in chart; Encounter for screening for other disorder; Screening for alcohol problem; Over weight; Sick sinus syndrome (HCC); Pulmonary hypertension (HCC); Arthritis of carpometacarpal (CMC) joint of right thumb Start: 03-23-2025 End: 03-23-2025 ambulatory ARIEL ANDERSON Not Available Start: 01-28-2025 End: 01-28-2025 Bamboo flowsheet Ariel Anderson MD Work Phone: [facility] Start: 01-28-2025 End: 01-28-2025 Bamboo flowsheet Ariel Anderson MD Work Phone: [facility] Start: 01-28-2025 End: 01-28-2025 Office outpatient visit 25 minutes Ariel Anderson MD Work Phone: [facility] Comment on above: Essential hypertensi on (CMS/HCC); Mixed hyperlipidemia (CMS/HCC); Hypertensive nephropathy (CMS/HCC); Stage 2 chronic kidney disease; Microalbuminuria; Gastroesophageal reflux disease without esophagitis Start: 01-28-2025 End: 01-28-2025 ambulatory ARIEL ANDERSON Not Available Start: 01-22-2025 End: 01-22-2025 Clinisync Result Encounter Ariel Anderson MD Work Phone: [facility] Unsolicited Start: 01-22-2025 End: 01-22-2025 Clinisync Result Encounter Ariel Anderson MD Work Phone: [facility] Unsolicited Start: 01-04-2025 End: 01-04-2025 Refill Ariel Anderson MD Work Phone: [facility] Comment on above: Mixed hyperlipidemia (CMS/HCC); Essential hypertension (CMS/HCC) Start: 08-03-2024 End: 08-03-2024 Bamboo flowsheet Ariel Anderson MD Work Phone: [facility] Start: 08-03-2024 End: 08-03-2024 Bamboo flowsheet Ariel Anderson MD Work Phone: [facility] Start: 08-03-2024 End: 08-03-2024 Office outpatient visit 25 minutes Ariel Anderson MD Work Phone: [facility] Comment on above: Essential hypertensi on (CMS/HCC) (Primary Dx); Hypertensive nephropathy (CMS/HCC); Stage 3a chronic kidney disease (HCC) (CMS/HCC); Microalbuminuria; Mixed hyperlipidemia (CMS/HCC); Gastroesophageal reflux disease without esophagitis; Arthritis of carpometacarpal (CMC) joint of right thumb; Over weight; Nonrheumatic aortic valve insufficiency; Nonrheumatic mitral valve regurgitation; Coronary arteriosclerosis (CMS/HCC) Start: 08-03-2024 End: 11-18-2024 ambulatory ARIEL ANDERSON Not Available Start: 06-04-2024 End: 06-04-2024 Refill Ariel Anderson MD Work Phone: [facility] Comment on above: Essential hypertensi on (CMS/HCC); Mixed hyperlipidemia (CMS/HCC); Gastroesophageal reflux disease without esophagitis Start: 08-15-2022 End: 08-16-[address] TANNER KINGSTON Facility:[facility] Start: 07-18-2022 End: 07-19-[address] ARIEL ANDERSON Facility:[facility] Start: 07-05-2021 End: 07-06-2021 ambulatory REFERRED SELF Facility:[facility] Procedures Date Procedure Procedure Detail Performing Clinician Start: 01-22-2025 ALL LIPID PROFILE (FASTING) Ariel Anderson MD Work Phone: Start: 01-22-2025 [facility] CMP (CMP) (FOR R EMOTE [facility] USE) Ariel Anderson MD Work Phone: Plan of Treatment Date Care Activity Detail Author Start: 03-23-2026 Medicare Annual Well ness (AWV) Medicare Annual Wellness (AWV) [facility] Start: 07-27-2025 End: 07-27-2025 Patient encounter procedure 07/27/2025 10:00 AM EST Office Visit [facility] [address] [place] [id number] Ariel Anderson MD [address] [place] [address] (Fax) [facility] Start: 05-17-2025 Influenza vaccination [facility] Start: 03-23-2025 End: 03-23-2025 Patient encounter procedure 03/23/2025 9:30 AM EDT Office Visit [facility] [address] [place] [address] Ariel Anderson MD [address] [place] [address] (Fax) Encounter for Medicare annual wellness exam; Advance directive in chart; Encounter for screening for other disorder; Screening for alcohol problem; Over weight; Sick sinus syndrome (HCC) [facility] Comment on above: Encounter for Medica re annual wellness exam; Advance directive in chart; Encounter for screening for other disorder; Screening for alcohol problem; Over weight; Sick sinus syndrome (HCC) Start: 02-16-2025 Medicare Annual Well ness (AWV) Medicare Annual Wellness (AWV) [facility] Start: 02-16-2025 Pneumococcal Vaccine : 65+ Years (1 of 2 - PCV) Pneumococcal Vaccine: 65+ Years (1 of 2 - PCV) [facility] Comment on above: Postponed from 10/23 (Patient Refused) Postponed from 10/23 (Patient Refused) Start: 01-28-2025 End: 01-28-2025 Patient encounter procedure [facility] Comment on above: Essential hypertensi on (CMS/HCC); Mixed hyperlipidemia (CMS/HCC); Hypertensive nephropathy (CMS/HCC); Stage 3a chronic kidney disease (HCC) (CMS/HCC); Microalbuminuria; Gastroesophageal reflux disease without esophagitis Start: 08-04-2024 End: 08-04-2024 Patient encounter procedure 08/04/2024 9:30 AM EST Office Visit [facility] [address] [address] Ariel Anderson MD [address] [place] [address] (Fax) [facility] Start: 08-03-2024 End: 08-03-2024 Patient encounter procedure 08/03/2024 2:00 PM EST Office Visit [facility] [address] [address] Ariel Anderson MD [address] [address] (Fax) Essential hypertension (CMS/HCC); Hypertensive nephropathy (CMS/HCC); Stage 2 chronic kidney disease; Microalbuminuria; Mixed hyperlipidemia (CMS/HCC); Gastroesophageal reflux disease without esophagitis; Arthritis of carpometacarpal (CMC) joint of right thumb; Over weight [facility] Comment on above: Essential hypertensi on (CMS/HCC); Hypertensive nephropathy (CMS/HCC); Stage 2 chronic kidney disease; Microalbuminuria; Mixed hyperlipidemia (CMS/HCC); Gastroesophageal reflux disease without esophagitis; Arthritis of carpometacarpal (CMC) joint of right thumb; Over weight Start: 05-17-2024 Influenza vaccination Influenza Vacc ine (#1) [facility] Start: 1959 Pneumococcal Vaccine : 65+ Years (1 of 2 - PCV) Pneumococcal Vaccine: 65+ Years (1 of 2 - PCV) [facility] Immunizations Immunization Date Immunization Notes Care Provider Fa cili 08-15-2022 Moderna SARS-CoV-2 Vaccination Ariel Anderson MD Work Phone: [facility] 07-11-2022 influenza, injectabl e, quadrivalent, preservative free Ariel Anderson MD Work Phone: [facility] 07-11-2022 influenza virus vacc ine, unspecified formulation Ariel Anderson MD Work Phone: [facility] 08-04-2021 Influenza, Seasonal, Quadrivalent, Adjuvanted Ariel Anderson MD Work Phone: [facility] 09-13-2017 diphtheria, tetanus toxoids and acellular pertussis vaccine Ariel Anderson MD Work Phone: [facility] Payers Date Payer Category Payer Medicare (Managed Care) [employer] [id number] 2020 Unknown [employer] D REPLACED BY [facility] [id number] 2020-Present [address] [place] [address] [id number] 2020 Medicare [id number] 1960 Self-pay 1939 Unknown [id number] 1939 Unknown [id number] 1939 Unknown [id number] 1939 Unknown [id number] 1939 Unknown [id number] Unknown [id number] Social History Date Type Detail Facility Start: 02-26-[address] [facility] Never smoked tobacco [facility] Start: 02-26-2023 Tobacco use and exposure Smoke less tobacco non-user [facility] Start: 02-17-2024 End: 03-23-2025 Alcoholic beverage intake Current drinker of alcohol (finding) [facility] Start: 02-17-2024 End: 03-23-[address] [facility] Start: 02-17-2024 End: 03-23-2025 Tobacco use panel [facility] Start: 1940 Sex assigned at Not on file N [facility] Functional Status Date Assessment Result Facility 03-23-2025 Patient Health Quest ionnaire 2 item (PHQ-2) [Reported] [facility] 01-28-2025 Patient Health Quest ionnaire 2 item (PHQ-2) [Reported] [facility] Progress note 05-26-2025 Note Date & Type Note Facility 05-26-2025 Note Cardiovascular Medic ine [facility] [place] SUBJECTIVE Chief Complaint Patient presents with Follow-up 1 year routine follow up Coronary Artery Disease Hypertension Bradycardia Hyperlipidemia First degree AV block Nonrheumatic mitral valve insufficiency Nonrheumatic mitral valve regurgitation Pulmonary Hypertension Renal artery stenosis Sick sinus Syndrome Stage 2 chronic kidney disease Sleep Apnea Obesity Joo Allen is a 84 y.o. male here for follow-up. PMHx: CAD, HTN, PVCs, KORTNEY, bradycardia, HLD HPI 05/26/25 He has been doing well since last seen. Denies c/o CP, dyspnea, orthopnea, PND, LE edema, dizziness/LH, palpitations, syncope. BP at home running 120-130s/70s, HR 50-70s. He stays busy with house work, he just trimmed his trees. He mows his lawn, he has an acre of land, he will often push mow if he has the time. Denies any sx's with this. Problem List[1] Medical History[2] Family History[3] Social History[4] Allergies[5] OBJECTIVE Visit Vitals BP 136/71 (BP Location: Right arm, Patient Position: Sitting) Pulse 72 Ht 1.676 m (5' 6 ) Wt 73.9 kg (163 lb) SpO2 99% BMI 26.31 kg/m??? Smoking Status Former BSA 1.85 m??? Medications: Current Medications[6] Physical Exam Constitutional: Appearance: Normal appearance. He is normal weight. HENT: Head: Normocephalic and atraumatic. Right Ear: External ear normal. Left Ear: External ear normal. Eyes: Extraocular Movements: Extraocular movements intact. Pupils: Pupils are equal, round, and reactive to light. Neck: Vascular: No carotid bruit. Cardiovascular: Rate and Rhythm: Normal rate and regular rhythm. Pulses: Normal pulses. Heart sounds: Murmur heard. Pulmonary: Effort: Pulmonary effort is normal. Breath sounds: Normal breath sounds. Abdominal: General: Bowel sounds are normal. Palpations: Abdomen is soft. Musculoskeletal: General: Normal range of motion. Cervical back: Neck supple. Right lower leg: No edema. Left lower leg: No edema. Skin: General: Skin is warm and dry. Neurological: General: No focal deficit present. Mental Status: He is alert and oriented to person, place, and time. Psychiatric: Mood and Affect: Mood normal. Behavior: Behavior normal. Thought Content: Thought content normal. Judgment: Judgment normal. Labs: No results found for: EXTCMP , BMPR1A , CBCDIF , BNP , LASAP , RED No visits with results within 6 Month(s) from this visit. Latest known visit with results is: [facility] Encounter on 07/05/2021 Component Date Value Ventricular Rate 07/05/2021 76 Atrial Rate 07/05/2021 76 [place] Interval 07/05/2021 228 QRS DURATION 07/05/2021 84 QT Interval 07/05/2021 398 QTC CALCULATION(BAZETT) 07/05/2021 447 P [place] 07/05/2021 18 R-[place]ridge 07/05/2021 -5 T Wave [place] 07/05/2021 -14 Diagnosis 07/05/2021 Value:Sinus rhythm with 1st degree A-V block with frequent Premature ventricular complexes in a pattern of bigeminy Nonspecific ST abnormality Abnormal ECG No previous ECGs available Confirmed by MD FRAN, EHAB ([id number]) on 07/06/2021 9:22:30 AM 01/22/25 Cr 1.07, BUN 13, K 4.5, Na 131, eGFR >60, AST 35, ALT 39 Chol 157, trig 123, LDL 50, HDL 83 01/01/24 NA 139, K- 4.7 normal BUN 10, Cr 1.31, GFR 52- low AST 42, ALT 34, ALP- 95- stable liver function Chol 152, Trig 36, LDL 59, HDL 86- well controlled 07/18/22 BUN 13, CR 1.06- normal K+ 3.7 normal Liver function normal Chol 172, HDL 74, Trig 93, LDL 79.4- much improved 09/30/2019 Chol 246, Hdl 66, Trig 114, LDL 157.2 Last lab values have been reviewed Testing/Procedures: [facility] (2010): FINAL IMPRESSION: 1. Moderate, non-hemodynamically significant stenosis of the mid left anterior descending coronary artery assessed by fractional flow reserve. 2. Mild plaque of the left circumflex and right coronary arteries. 3. Low normal global left ventricular systolic function estimated at 50%. 4. Moderate systemic hypertension. 5. Normal left ventricular end-diastolic pressure. Stress test (2016): No ischemia Cardiovascular Laboratory Report 07/05/21 IMPRESSIONS: 1. 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 2. Qlkw-cj-uurovlsl disease of the left anterior descending coronary artery. 3. Ectasia of the right coronary artery with sluggish flow consistent with endothelial dysfunction. 4. Normal left ventricular systolic function by noninvasive imaging. RECOMMENDATIONS: 1. Will refer the patient to our electrophysiology colleagues for consideration of a permanent pacemaker given symptomatic bradyarrhythmias on beta irvin therapy. 2. Aggressive cardiovascular risk factor modification. 3. Continue guideline directed medical therapy including aspirin, high-intensity statin therapy, and angiotensin-converting enzyme inhibitor and ultimately a beta-irvin once the patient undergo (more content not included)... [facility] History of Present illness Narrative 03-23-2025 Ariel Anderson MD - 03/23/2025 9:30 AM EDT Note Date & Type Note Facility 03-23-2025 History of Presen t illness Narrative Images from the original note were not included. Joo Allen is a 84 y.o. male presents with chief complaint of Annual Exam HPI: History of Present Illness I have reviewed and reconciled the history and medication list with the patient today. CURRENT PCP/CARE TEAM: Patient Care Team: Ariel Anderson MD as PCP - General (Family Medicine) Ariel Anderson MD as PCP - [facility] aMrcial Borrero DO as Referring Physician (Orthopaedic Surgery) Jesse Cabrera MD as Referring Physician (Cardiology) Antonina Alrbecht MD as Referring Physician (Dermatology) Over the past 2 weeks, how often have you been bothered by any of the following problems? Little interest or pleasure in doing things: Not at all Feeling down, depressed, or hopeless: Several days Patient Health Questionnaire-2 Score: 1 Over the past 2 weeks, how often have you been bothered by any of the following problems? Trouble falling or staying asleep, or sleeping too much: Not at all Feeling tired or having little energy: Several days Poor appetite or overeating: Several days Feeling bad about yourself - or that you are a failure or have let yourself or your family down: Not at all Trouble concentrating on things, such as reading the newspaper or watching television: Not at all Moving or speaking so slowly that other people could have noticed? Or the opposite - being so fidgety or restless that you have been moving around a lot more than usual.: Not at all Thoughts that you would be better off or hurting yourself in some way: Not at all Patient Health Questionnaire-9 Score: 3 Health Risk Assessment Form Do you need help eating, bathing, using the toilet, dressing, or getting around your home?: No Can you prepare your own meals?: Yes Can you do your own housework without help?: Yes Can you shop for groceries or clothes without help?: Yes Do you exercise for about 20 minutes 3 or more days a week?: Yes How confident are you that you can control and manage most of your health problems?: Very confident Can you mange your money, credit cards and accounts, pay bills and taxes?: Yes Vision Screening: Yes, patient sees regular 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 valve repairer/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 Hearing Screening: Not done Cognitive Screening Self Assessment: No concerns rasied by family members, friends, or caretakers Three Word Registration: Village, Kitchen, Baby Clock Drawing: Normal Clock - 2 Three Word Recall: All 3 words correct - 3 Total Score (0-5 Points): 5 Pain Assessment Pain Score: 0 - No pain HISTORIES: PAST MEDICAL HISTORY: Past Medical History: Diagnosis Date Bradycardia 05/2021 3 days GERD (gastroesophageal reflux disease) Hypertension Kidney disease Stage 3A chronic Sleep apnea Synovial cyst of knee, right Tuberculosis, pulmonary SURGICAL HISTORY: Past Surgical History: Procedure Laterality Date CARPAL TUNNEL RELEASE Left 06/13/2023 DR BORRERO COLONOSCOPY 2016 [place], polyps were removed HEART CATH 2007 [place] HERNIA REPAIR Bilateral 1998 SHOULDER SURGERY Left 2010 SOCIAL HISTORY: Social History Tobacco Use Smoking status: Never Smokeless tobacco: Never Substance Use Topics Alcohol use: Yes Alcohol/week: 15.0 standard drinks of alcohol Types: 15 Standard drinks or equivalent per week Depression: Not at risk (03/23/2025) PHQ-2 PHQ-2 Score: 1 FAMILY HISTORY: Family History Problem Relation Name Age of Onset Heart disease Mother Cancer Mother No Known Problems Brother No Known Problems Daughter MEDICATIONS: Current Outpatient Medications Medication Instructions amLODIPine (NORVASC) 5 mg, Oral, Daily aspirin 81 mg, Daily atorvastatin (LIPITOR) 40 mg, Oral, Daily lisinopril 40 mg, Oral, Daily magnesium oxide (MAG-OX) 400 mg, Daily nabumetone (Relafen) 750 MG tablet TAKE 2 TABLETS BY MOUTH EVERY DAY omeprazole (PRILOSEC) 20 mg, Oral, Daily before breakfast, Do not crush or chew. Potassium Gluconate 2.5 MEQ tablet 1 tablet, Daily ALLERGIES: No Known Allergies PHYSICAL EXAM: Visit Vitals BP 120/76 Pulse 84 Ht 5' 6 Wt 163 lb SpO2 98% BMI 26.31 kg/m Smoking Status Never BSA 1.85 m BP Readings from Last 3 Encounters: 03/23/25 120/76 01/28/25 128/68 08/03/24 120/64 Wt Readings from Last 3 Encounters: 03/23/25 163 lb 01/28/25 164 lb 08/03/24 164 lb Physical Exam The patient is pleasant and in no acute distress. The head is normocephalic and atraumatic. Both eyes appear grossly normal without obvious lid pathology or icterus. Both ears hearing is grossly intact. The neck is supple and trachea is midline. No masses are appreciated. The anterior cervical lymphatics demonstrates shoddy bilateral nontender lymphadenopathy. There is no supraclavicular lymphadenopathy. The heart is regular rate and rhythm without S3, S4. No murmur. The patient has normal respiratory pattern. The breath sounds are are diffusely decreased but symmetrical without evidence of rhonchi or rales. No wheezing. The skin is warm and dry. The lower extremities have trace edema. Neurologic screening exam is nonfocal. The patient is alert. There is no overt gross evidence of cognitive impairment, although there is some minor word search noted The patient has good eye contact and speech is clear. Appropriate affect. Results ASSESSMENT AND PLAN: Assessment/Plan 1. Encounter for Medicare annual wellness exam (Primary) The patient is here for their Annual Medicare Wellness visit. Demographics were updated. Self-assessment was completed and reviewed. Past medical, family, and social history were updated. The medication list updated and reviewed by the doctor. A list of other current medical providers is established and updated. Time was spent discussing health maintenance issues, ordering testing as appropriate, and a schedule was reviewed regarding recommended screening. We discussed safety issues and fall risk. Depression screening was completed and addressed as appropriate. Fall screening was completed and addressed. Cognitive function was assessed by direct observation, cognitive screening as indicated, and assessment of ability to perform ADL's. The BMI and discussed. Major risk factors for chronic disease including family history were discussed. An after visit summary is made available to the patient 2. Advance directive in chart No changes to advanced directives 3. Encounter for screening for other disorder Clinically insignificant depression screening 4. Screening for alcohol problem Negative alcohol screening 5. Over weight Encouraged continue activity around the home 6. Sick sinus syndrome (HCC) Chronic problem, stable, monitor longitudinally and comanaged with Cardiology. 7. Pulmonary hypertension (HCC) Chronic problem, stable, monitor longitudinally and comanaged with Cardiology. 8. Arthritis of carpometacarpal (CMC) joint of right thumb Chronic problem, stable, monitor longitudinally documented in this encounter [facility] History of Present illness Narrative 01-28-2025 Ariel Anderson MD - 01/28/2025 9:00 AM EDT Note Date & Type Note Facility 01-28-2025 History of Presen t illness Narrative Patient ID: Joo Allen is a 84 y.o. male who presents for: Hypertension Patient is here for follow-up of elevated blood pressure. He is exercising and is adherent to a low-salt diet. Blood pressure is well controlled at home. Cardiac symptoms: none. Patient denies chest pain, dyspnea, irregular heart beat, lower extremity edema, and palpitations. Cardiovascular risk factors: advanced age (older than 55 for men, 65 for women), dyslipidemia, hypertension, male gender, microalbuminuria, and sedentary lifestyle. Use of agents associated with hypertension: none. History of target organ damage: chronic kidney disease. Hyperlipidemia Pt who presents for follow-up of dyslipidemia. A repeat fasting lipid profile was done. The patient does not use medications that may worsen dyslipidemias (corticosteroids, progestins, anabolic steroids, diuretics, beta-blockers, amiodarone, cyclosporine, olanzapine). Exercise: daily. GERD Paitent complains of heartburn. This has been associated with no other symptoms. He/She denies abdominal bloating, belching and eructation, difficulty swallowing, dysphagia, and hoarseness. Symptoms have been present for several years. He/She denies dysphagia. He/She has not lost weight. He/She denies melena, hematochezia, hematemesis, and coffee ground emesis. Review of Systems Constitutional: Negative for activity change and fatigue. Respiratory: Negative for cough, shortness of breath and wheezing. Cardiovascular: Negative for chest pain, palpitations and leg swelling. Neurological: Positive for light-headedness. Negative for headaches. Objective The patient is pleasant and in no acute distress. The neck is supple and trachea is midline. No masses are appreciated. The heart is regular rate and rhythm without S3, S4. No murmur. The patient has normal respiratory pattern. The breath sounds are symmetrical without evidence of rhonchi or rales. No wheezing. The skin is warm and dry. The lower extremities have trace edema. The patient has good eye contact and speech is clear. Appropriate affect. 01/23/2023 12:00 PM 02/26/2023 2:14 PM 06/11/2023 9:24 AM 07/18/2023 8:51 AM 01/27/2024 8:52 AM 02/17/2024 10:01 AM 08/03/2024 1:57 PM Vitals BMI 27.12 kg/m2 27.12 kg/m2 25.82 kg/m2 25.66 kg/m2 25.66 kg/m2 26.47 kg/m2 26.47 kg/m2 BSA (m2) 1.88 m2 1.88 m2 1.84 m2 1.83 m2 1.83 m2 1.86 m2 1.86 m2 Systolic 126 128 128 130 120 Diastolic 70 70 68 78 64 Heart Rate 81 80 81 71 SpO2 98 % 97 % 98 % 98 % Height (in) 5' 6 5' 6 5' 6 5' 6 5' 6 5' 6 5' 6 Weight (lb) 168 168 160 159 159 164 164 Visit Report Report Report Report Report Report No Known Allergies Current Outpatient Medications on File Prior to Visit Medication Sig Dispense Refill amLODIPine (Norvasc) 5 MG tablet Take 1 tablet (5 mg) by mouth Daily 90 tablet 1 aspirin 81 MG EC tablet 81 mg in the morning. atorvastatin (Lipitor) 40 MG tablet Take 1 tablet (40 mg) by mouth Daily 90 tablet 1 lisinopril 40 MG tablet Take 1 tablet (40 mg) by mouth Daily 90 tablet 1 magnesium oxide (Mag-Ox) 400 MG tablet Take 400 mg by mouth in the morning. nabumetone (Relafen) 750 MG tablet TAKE 2 TABLETS BY MOUTH EVERY DAY 180 tablet 1 omeprazole (PriLOSEC) [address] capsule Take 1 capsule (20 mg) by mouth in the morning. Take before meals. Do not crush or chew.. 90 capsule 1 Potassium Gluconate 2.5 MEQ tablet Take 1 tablet by mouth 1 (one) time each day. No current facility-administered medications on file prior to visit. 1. Essential hypertension ([facility]) Chronic problem, stable, to goal - lisinopril 40 MG tablet; Take 1 tablet (40 mg) by mouth Daily Dispense: 90 tablet; Refill: 1 - amLODIPine (Norvasc) 5 MG tablet; Take 1 tablet (5 mg) by mouth Daily Dispense: 90 tablet; Refill: 1 2. Mixed hyperlipidemia ([facility]) Reviewed labs with patient in essentially to goal. - atorvastatin (Lipitor) 40 MG tablet; Take 1 tablet (40 mg) by mouth Daily Dispense: 90 tablet; Refill: 1 3. Hypertensive nephropathy ([facility]) Chronic problem, stable, demonstrating end organ damage from their current state of health. I stressed the importance of keeping blood pressure and blood sugar to goal, staying well hydrated, avoiding NSAIDs, and aerobic exercises as tolerated. Continue to monitor longitudinally. 4. Stage 3a chronic kidney disease (HCC) (CMS/[facility]) Chronic problem that has surprisingly improved for him. He has improved into stage 2 chronic kidney disease. This has been changed in his chronic problem list. 5. Microalbuminuria Chronic problem that was still present last fall. Chronic problem, defining an aspect the nephropathy, with significant risk, uncertain progression requiring longitudinal monitoring, and moderate decision making. Microalbuminuria describes a moderate increase in the level of urine albumin. Normally, the kidneys filter albumin, so if the kidney leaks small amounts of albumin into the urine then it is a indicator of chronic kidney disease. Microalbuminuria is an independent indicator of increased cardiovascular risk among individuals and therefore can be used for risk stratification for cardiovascular disease. 6. Gastroesophageal reflux disease without esophagitis Chronic problem these doing well with as long as he uses his medication. In prescribing a renewal to their current medication, consideration of the following encompasses moderate decision making; the current prescriptions and supplements, the current allergies and medication intolerances, current medical conditions, and potential drug interactions. The patient was given a chance to ask questions today and all questions were answered. - omeprazole (PriLOSEC) [address] capsule; Take 1 capsule (20 mg) by mouth in the morning. Take before meals. Do not crush or chew. Dispense: 90 capsule; Refill: 1 Chronic problem The patient meets the criteria for polypharmacy; 5 or more prescriptions or multi-morbidity defined as 5 or more diagnoses. Polypharmacy can significantly increase the risk of adverse drug events and negatively impact adherence. Consideration of factors such as clinician agreement, patient perspective, and de-prescribing, as appropriate can improve patient outcomes while simplifying care. This requires longitudinal monitoring as there is at least a moderate risk of morbidity and requires at least a moderate degree of evaluation and management. documented in this encounter [facility] History of Present illness Narrative 08-03-2024 Ariel Anderson MD - 08/03/2024 2:00 PM EST Note Date & Type Note Facility 08-03-2024 History of Presen t illness Narrative Images from the original note were not included. Patient ID: Joo Allen is a 83 y.o. male who presents for: Hypertension Patient is here for follow-up of elevated blood pressure. He is exercising and is adherent to a low-salt diet. Blood pressure is well controlled at home. Cardiac symptoms: none. Patient denies chest pain, dyspnea, irregular heart beat, lower extremity edema, and palpitations. Cardiovascular risk factors: advanced age (older than 55 for men, 65 for women), dyslipidemia, hypertension, male gender, and microalbuminuria. Use of agents associated with hypertension: none. History of target organ damage: none. Hyperlipidemia Pt who presents for follow-up of dyslipidemia. A repeat fasting lipid profile was not done. The patient does not use medications that may worsen dyslipidemias (corticosteroids, progestins, anabolic steroids, diuretics, beta-blockers, amiodarone, cyclosporine, olanzapine). Exercise: daily. GERD Paitent complains of heartburn. This has been associated with no other symptoms. He/She denies abdominal bloating, belching and eructation, dysphagia, hoarseness, and nausea. Symptoms have been present for several years . He/She denies dysphagia. He/She has not lost weight. He/She denies melena, hematochezia, hematemesis, and coffee ground emesis. Chronic Pain: Pt is here for follow-up of chronic pain related to arthritis in his thumb. Her/His pain is waxing and waning. Pain is usually 1/10, described as aching and throbbing and occurs when active. Pt has been taking nabumetone for this problem. Review of Systems Constitutional: Negative for activity change and fatigue. Respiratory: Negative for cough, shortness of breath and wheezing. Cardiovascular: Negative for chest pain, palpitations and leg swelling. Neurological: Negative for light-headedness and headaches. Objective The patient is pleasant and in no acute distress. The neck is supple and trachea is midline. No masses are appreciated. The heart is regular rate and rhythm without S3, S4. He has a 3/6 systolic murmur it is easily heard on both sides of the sternum but is A bit louder in the right 2nd interspace. The patient has normal respiratory pattern. The breath sounds are symmetrical without evidence of rhonchi or rales. No wheezing. The skin is warm and dry. The lower extremities have trace edema. The patient has good eye contact and speech is clear. Appropriate affect. Visit Vitals BP 120/64 Pulse 71 Ht 5' 6 Wt 164 lb SpO2 98% BMI 26.47 kg/m Smoking Status Never BSA 1.86 m No Known Allergies Current Outpatient Medications on File Prior to Visit Medication Sig Dispense Refill aspirin 81 MG EC tablet 81 mg in the morning. magnesium oxide (Mag-Ox) 400 MG tablet Take 400 mg by mouth in the morning. nabumetone (Relafen) 750 MG tablet TAKE 2 TABLETS BY MOUTH EVERY DAY 180 tablet 1 Potassium Gluconate 2.5 MEQ tablet Take 1 tablet by mouth 1 (one) time each day. [DISCONTINUED] amLODIPine (Norvasc) 5 MG tablet Take 1 tablet (5 mg) by mouth Daily 90 tablet 1 [DISCONTINUED] atorvastatin (Lipitor) 40 MG tablet Take 1 tablet (40 mg) by mouth Daily 90 tablet 1 [DISCONTINUED] lisinopril 40 MG tablet Take 1 tablet (40 mg) by mouth Daily 90 tablet 1 [DISCONTINUED] omeprazole (PriLOSEC) [address] capsule Take 1 capsule (20 mg) by mouth in the morning. Take before meals. Do not crush or chew.. 90 capsule 1 No current facility-administered medications on file prior to visit. 1. Essential hypertension (CMS/HCC) (Primary) Chronic problem, stable, to goal - lisinopril 40 MG tablet; Take 1 tablet (40 mg) by mouth Daily Dispense: 90 tablet; Refill: 1 - amLODIPine (Norvasc) 5 MG tablet; Take 1 tablet (5 mg) by mouth Daily Dispense: 90 tablet; Refill: 1 2. Hypertensive nephropathy (CMS/HCC) Chronic problem, unstable, demonstrating progression of end organ damage from their current state of health. I have independently reviewed and interpreted has appropriate, tests that were performed or ordered by another health day care assistant. These are documented in the electronic health record. These were reviewed with the patient. I stressed the importance of keeping blood pressure and blood sugar to goal, staying well hydrated, avoiding NSAIDs, and aerobic exercises as tolerated. Continue to monitor longitudinally. 3. Stage 3 chronic kidney disease Chronic problem, unstable, progressing, defining the end organ damage of the nephropathy. I stressed the importance of keeping blood pressure and blood sugar to goal, staying well hydrated, and aerobic exercises as tolerated. Continue to monitor longitudinally 4. Microalbuminuria Chronic problem, defining an aspect the nephropathy, with significant risk, uncertain progression requiring longitudinal monitoring, and moderate decision making. Microalbuminuria describes a moderate increase in the level of urine albumin. Normally, the kidneys filter albumin, so if the kidney leaks small amounts of albumin into the urine then it is a indicator of chronic kidney disease. Microalbuminuria is an independent indicator of increased cardiovascular risk among individuals and therefore can be used for risk stratification for cardiovascular disease. 5. Mixed hyperlipidemia (CMS/HCC) Chronic, stable, to goal based on outside labs that were reviewed - atorvastatin (Lipitor) 40 MG tablet; Take 1 tablet (40 mg) by mouth Daily Dispense: 90 tablet; Refill: 1 6. Gastroesophageal reflux disease without esophagitis Chronic problem, stable, asymptomatic In prescribing a renewal to their current medication, consideration of the following encompasses moderate decision making; the current prescriptions and supplements, the current allergies and medication intolerances, current medical conditions, and potential drug interactions. Any changes to risks, benefits, and reason for renewing their current medication due to the above were discussed. The patient was given a chance to ask questions today and all questions were answered. The patient is to contact us if any other questions arise or if any problems occur. (Utilizing the original guidelines or the 2020 office/outpatient code guidelines for selecting the level of E/M service, In both sets of guidelines, prescription drug management appears in the moderate medical decision making (MDM) row. Neither the original guidelines nor the new guidelines state that a new prescription or change is needed in order to credit prescription drug management) - omeprazole (PriLOSEC) [address] capsule; Take 1 capsule (20 mg) by mouth in the morning. Take before meals. Do not crush or chew.. Dispense: 90 capsule; Refill: 1 7. Arthritis of carpometacarpal (CMC) joint of right thumb Chronic problem, stable. He does use the nabumetone that was prescribed twice daily but is only using it once daily and some days he does not use it at all. He is getting good relief. 8. Over weight 9. Nonrheumatic aortic valve insufficiency Chronic problem that appears to be stable. I was able to locate the cardiology notes in the medical record and I read them and reviewed. They are planning on doing echocardiogram at his next scheduled visit. Since he currently does not demonstrate signs of congestive heart failure I agree. He had questions about what congestive heart failure would look like and I described the basics to him. 10. Nonrheumatic mitral valve regurgitation As above 11. Coronary arteriosclerosis (CMS/HCC) Chronic problem, stable, no angina or anginal equivalents. documented in this encounter [facility] Healthcare Evaluation note Note Date & Type Note Facility Evaluation note Diagnosis Essential hypertension (CMS/HCC)- Primary Unspecified essential hypertension Hypertensive nephropathy (CMS/HCC) Unspecified hypertensive kidney disease with chronic kidney disease stage I through stage IV, or unspecified Stage 3a chronic kidney disease (HCC) (CMS/HCC) Microalbuminuria Proteinuria Mixed hyperlipidemia (CMS/HCC) Mixed hyperlipidemia Gastroesophageal reflux disease without esophagitis Esophageal reflux Arthritis of carpometacarpal (CMC) joint of right thumb Over weight Overweight Nonrheumatic aortic valve insufficiency Nonrheumatic mitral valve regurgitation Coronary arteriosclerosis (CMS/HCC) Coronary atherosclerosis of unspecified type of vessel, walker river or graft documented in this encounter [facility] Healthcare Evaluation note Note Date & Type Note Facility Evaluation note Diagnosis Essential hypertension (CMS/HCC) Unspecified essential hypertension Mixed hyperlipidemia (CMS/HCC) Mixed hyperlipidemia Gastroesophageal reflux disease without esophagitis Esophageal reflux documented in this encounter [facility] Healthcare Evaluation note Note Date & Type Note Facility Evaluation note Diagnosis Mixed hyperlipidemia (CMS/HCC) Mixed hyperlipidemia Essential hypertension (CMS/HCC) Unspecified essential hypertension documented in this encounter [facility] Healthcare Evaluation note Note Date & Type Note Facility Evaluation note Diagnosis Essential hypertension (CMS/HCC) Unspecified essential hypertension Mixed hyperlipidemia (CMS/HCC) Mixed hyperlipidemia Hypertensive nephropathy (CMS/HCC) Unspecified hypertensive kidney disease with chronic kidney disease stage I through stage IV, or unspecified Stage 2 chronic kidney disease Microalbuminuria Proteinuria Gastroesophageal reflux disease without esophagitis Esophageal reflux documented in this encounter [facility] Evaluation note Note Date & Type Note Facility Evaluation note Diagnosis Encounter for Medicare annual wellness exam- Primary Advance directive in chart Encounter for screening for other disorder Screening for alcohol problem Screening for alcoholism Over weight Overweight Sick sinus syndrome (HCC) Sinoatrial node dysfunction Pulmonary hypertension (HCC) Other chronic pulmonary heart diseases Arthritis of carpometacarpal (CMC) joint of right thumb documented in this encounter [facility] Summary Purpose Family History No Family History Records FoundNo Family History Records FoundNo Family History Records FoundNo Family History Records Found Advance Directives No Advanced Directives Records FoundDocuments on File Type Date Recorded Patient Invasive Cardiologist Expl anation Advance Directives and Living Will 10/12/2020 1990-08-13 poa Advance Directives and Living Will 05/11/2019 1990-08-13 Power of Respiratory Supervisor Additional Source Comments (unrecognized sect ion and content) No Status Records FoundNo Status Records FoundNo Status Records FoundNo Status Records Found INFORMATION SOURCE (unrecogn ized section and content) DATE CREATED AUTHOR 07/11/2021 [facility] DATE CREATED AUTHOR AUTHOR'S ORGANIZ ATION 08/16/2022 [facility] DATE CREATED AUTHOR AUTHOR'S ORGANIZ ATION 03/27/2025 [facility] EPIC DATE CREATED AUTHOR AUTHOR'S ORGANIZ ATION 05/28/2025 [facility] Care Teams (unrecognized sec tion and content) Doctor Naturopathic Relationship Specialty Start Date End Date Ariel Anderson MD [address] [place] [address] PCP - Devoted 09/16/20 Ariel Anderson MD [address] [place] [address] PCP - General Family Medicine 01/23/23 Doctor Naturopathic Relationship Specialty Start Date End Date Ariel Anderson MD [address] [phone] (Fax) PCP - Devoted 09/16/20 Ariel Anderson MD [address] [address] (Fax) PCP - General Family Medicine 01/23/23 Doctor Naturopathic Relationship Specialty Start Date End Date Ariel Anderson MD [address] [place] [address] (Fax) PCP - Devoted 09/16/20 Ariel Anderson MD [address] [place] [address] (Fax) PCP - General Family Medicine 01/23/23 Doctor Naturopathic Relationship Specialty Start Date End Date Ariel Anderson MD [address] [address] (Fax) PCP - Devoted 09/16/20 Ariel Anderson MD [address] [address] (Fax) PCP - General Family Medicine 01/23/23 Doctor Naturopathic Relationship Specialty Start Date End Date Ariel Anderson MD [address] [address] (Fax) PCP - Devoted 09/16/20 Ariel Anderson MD [address] [address] (Fax) PCP - General Family Medicine 01/23/23 Doctor Naturopathic Relationship Specialty Start Date End Date Ariel Anderson MD [address] [address] (Fax) PCP - Devoted 09/16/20 Ariel Anderson MD [address] [place] [address] (Fax) PCP - General Family Medicine 01/23/23 Doctor Naturopathic Relationship Specialty Start Date End Date Ariel Anderson MD [address] [place] [address] (Fax) PCP - Devoted 09/16/20 Ariel Anderosn MD [address] [place] [address] (Fax) PCP - General Family Medicine 01/23/23 Doctor Naturopathic Relationship Specialty Start Date End Date Ariel Anderson MD [address] [place] [address] (Fax) PCP - Devoted 09/16/20 Ariel Anderson MD [address] [address] (Fax) PCP - General Family Medicine 01/23/23 Doctor Naturopathic Relationship Specialty Start Date End Date Ariel Anderson MD [address] [address] (Fax) PCP - Devoted 09/16/20 Ariel Anderson MD [address] [address] (Fax) PCP - General Family Medicine 01/23/23 Jr. Marcial Borrero DO [address] [place] [address] [place] [phone] Referring Physician Orthopaedic Surgery 03/23/25 Jesse Cabrera MD [address] [place] [address] Referring Physician Cardiology 03/23/25 Antonina Albrecht MD [address] [facility] [place] [address] Referring Physician Dermatology 03/23/25 Reason for Visit (unrecogniz ed section and content) Reason Comments Hypertension GERD Hyperlipidemia Reason Comments Med Refill Reason Comments Hypertension Hyperlipidemia GERD Reason Comments Annual Exam FOR RECORDS PERTAINING TO PATIENTS WHO ARE [...] BE BASED ON THE PRIMARY CLINICAL RECORDS. [employer] provides no warranty or guarantee of the accuracy or completeness of information in this document.
--- NOTE | 2025-06-02 08:00 | CA_ITS ---
Patient Name: JOO ALLEN MR#: [id number] : 1940 Exam Date: 06/02/2025 Ordering Doctor: VALERIA STOKES CNP ECHOCARDIOGRAM REPORT PROCEDURE: CA ECHO DOPPLER COMPLETE INDICATIONS: Tricuspid valve regurgitation, hypertension COMPARISON: None. DESCRIPTION: COMPLETE ECHOCARDIOGRAM Real-time transthoracic echocardiography with 2D, M-mode, spectral and color flow Doppler performed. QUALITY: Technical quality was good. LEFT VENTRICLE: Normal chamber size. Mild left ventricular hypertrophy. LV EF: Global left ventricular systolic function is normal; visually estimated ejection fraction is 60-65%. No wall motion abnormalities. DIASTOLIC: Normal diastolic function. ATRIAL SEPTUM: Visually appears intact. LEFT ATRIUM: Moderate dilatation. RIGHT ATRIUM: Moderate dilatation. RIGHT VENTRICLE: Mild dilatation. Normal systolic function. TRICUSPID VALVE: Normal mobility and thickness. No stenosis with mild regurgitation. No evidence of pulmonary hypertension. RVSP 27 mmHg MITRAL VALVE: Normal mobility and thickness. No evidence of mitral valve stenosis. There is no mitral annular calcification. Mild mitral regurgitation. AORTIC VALVE: Normal trileaflet appearance. Moderately calcified aortic valve. Mildly diminished mobility. No evidence of aortic valve stenosis. DVI 0.6. Mild aortic regurgitation. AORTIC ROOT: Normal diameter and appearance. Ascending aorta and aortic arch are normal in size. PULMONIC VALVE: Normal thickness and mobility. No stenosis. PERICARDIUM: No evidence of pericardial effusion. IVC: Collapses with inspiration. CONCLUSION: 1. Global left ventricular systolic function is normal; visually estimated ejection fraction is 60-65% 2. The right ventricle is mildly dilated with normal systolic function 3. Normal diastolic function 4. Mild left ventricular hypertrophy 5. Biatrial dilatation 6. Mild tricuspid regurgitation 7. Mild mitral regurgitation 8. Mild aortic valve regurgitation Adult Echocardiography Procedure Report Left Ventricle LVEDD (3.7 - 5.6 cm): 5.48 cm LVESD (2.2 - 4.0 cm): 2.90 cm LVIVS thickness (0.6 - 1.2 cm): 1.10 cm LVPW thickness (0.5 - 1.0 cm): 1.18 cm e': 0.11 m/s E - e': 5.94 LVOT Max Gradient: 4.65 mm60- LVOT Area (cm2): 1.08 m/s Peak Velocity (LVOT): 1.08 m/s Mean Velocity (LVOT): 0.73 m/s LVOT Diameter 2.25 cm Left Ventricular Ejection Fraction: 65.82 % Left Atrium LA Volume Index (2D A2C): 46.50 ml/m2 Left Atrium Systolic Dimension: 4.41 cm Mitral Valve MV E to A Ratio: 1.03 Mitral Valve A-Wave Peak Velocity: 0.61 m/s Mitral Valve E-Wave Peak Velocity: 0.63 m/s Right Ventricle Aorta AO Root Diam: 3.43 cm Ascending Ao Diam: 3.32 cm Aortic Valve AoV Area (Peak Vernon): 2.28 cm2, 2.28 cm2 AoV Area (VTI): 2.47 cm2, 2.54 cm2 Deceleration Logan: 3.57 m/s2, 2.15 m/s2 Pressure Half-Time: 379.59 ms, 492.46 ms Peak Velocity(Antegrade Flow): 1.87 m/s, 1.59 m/s, 1.64 m/s Peak Gradient(Antegrade Flow): 14.02 mm[Hg], 10.09 mm[Hg], 10.74 mm[Hg] Mean Velocity(Antegrade Flow): 1.21 m/s, 1.17 m/s, 1.12 m/s Mean Gradient(Antegrade Flow): 6.91 mm[Hg], 6.05 mm[Hg], 5.75 mm[Hg] Velocity Time Integral: 38.66 cm, 39.70 cm, 35.29 cm Tricuspid Valve Peak Velocity (Regurgitant Flow): 2.47 m/s Pulmonic Valve Peak Gradient: 2.82 mm[Hg], 4.20 mm[Hg] Right Atrium Right Atrium Systolic Pressure: 94.47 ml, 94.47 ml Dictated by: Jesse Cabrera M.D. on 06/02/2025 at 12:34 Approved by: Jesse Cabrera M.D. on 06/02/2025 at 12:38
== END 2025-06-02 07:49 | disposition home or self-care (01) ==
LOC: CARD 07:48
PROVIDERS: PCP Family Medicine; Visit Provider Nurse Practitioner Family
DX: I36.1 Nonrheumatic tricuspid (valve) insufficiency (principal); R01.1 Cardiac murmur, unspecified
CPT/HCPCS: 93306

== ENCOUNTER 2025-07-09 12:45 | Emergency (ER) | payer OTHER, SELFPAY ==
--- OUTSIDE RECORDS SUMMARY | 2025-07-07 16:00 | XMS_ITS | Encounter Summary ---
Author Organization [facility] Address [address] [place] [address] Care Team Providers Care Quality Coordinator Name Role Phone Sai Landrum MD Unavailable [phone] Sai Landrum MD Primary Care Provider [phone] Jr. Marcial Borrero DO Unavailable [phone] Jesse Cabrera MD Unavailable [phone] Antonina Albrecht MD Unavailable Reason for Referral * Consultation (Routine) - AuthorizedSpecialtyDiagnoses / ProceduresReferred By ContactReferred To ContactOrthopaedic Surgery Diagnoses Encounter for examination following treatment at hospital Post-operative state Closed displaced intertrochanteric fracture of left femur, sequela Closed fracture of left hip, sequela Fall from standing, sequela Sai Landrum MD [address] [facility] [address] [place] [address] Phone: tel: fax: Jr. Marcial Borrero, DO [address] [place] [address] Phone: tel: fax: Referral IDStatusReasonStart DateExpiration DateVisits RequestedVisits [id number] Specialty Services Required / Reason for Visit * ReasonCommentsFollow-up Encounter Details DateTypeDepartmentCare Team (Latest Contact Info)Ityonygjisa26/22/2025 4:00 PM EDTOffice Visit [facility] [address] [place] [address] Sai Landrum MD [address] [place] [phone] Encounter for examination following treatment at hospital; Post-operative state; Closed displaced intertrochanteric fracture of left femur, sequela; Closed fracture of left hip, sequela; Fall from standing, sequela; Over weight Social History Tobacco UseTypesPacks/DayYears UsedDateSmoking Tobacco: NeverSmokeless Tobacco: Never Tobacco Cessation:Counseling Given: Yes Alcohol UseStandard Drinks/CpvxOnpgrgynAne66 (1 standard drink = 0.6 oz pure alcohol)PHQ-2AnswerDate RecordedPatient Health Questionnaire-2 [id number] Sex and Gender InformationValueDate RecordedSex Assigned at BirthNot on file Legal SsiXeuw6411/28/2022 8:13 PM EDTGender IdentityNot on fileSexual Orientation Not on filedocumented as of this encounter Plan of Treatment DateTypeDepartmentCare Team (Latest Contact Info)Xviiqiwddng75/11/2025 10:00 AM ESTOffice Visit [facility] [address] [address] Sai Landrum MD [address] [place] [phone] (Fax) NameTypePriorityAssociated DiagnosesOrder ScheduleAmbulatory referral to Orthopaedic SurgeryOutpatient ReferralRoutine Encounter for examination following treatment at hospital Post-operative state Closed displaced intertrochanteric fracture of left femur, sequela Closed fracture of left hip, sequela Fall from standing, sequela Expected: 07/07/2025 (Approximate), Expires: 01/05/2026documented as of this encounter Visit Diagnoses Diagnosis Encounter for examination following treatment at hospital Post-operative state Other postprocedural status Closed displaced intertrochanteric fracture of left femur, sequela Closed fracture of left hip, sequela Fall from standing, sequela Over weight Overweight documented in this encounter Additional Health Concerns AssessmentNoted TimePHQ-9 Depression Total Score: 307 9:00 AM EDT documented as of this encounter Care Teams Team MemberRelationshipSpecialtyStart DateEnd Date Sai Landrum MD [address] [address] PCP - Devoted09/16/20 Sai Landrum MD [address] [address] PCP - GeneralFamily Medicine01/23/23 Jr. Marcial Borrero DO [address] [address] Referring PhysicianOrthopaedic Surgery03/23/25 Jesse Cabrera MD [address] [phone] Referring PhysicianCardiology03/23/25 Antonina Albrecht MD [address] [place] [address] Referring PhysicianDermatology03/23/25documented as of this encounter
[2025-07-09 12:49] VITALS: BP 164/75; PULSE 87; TEMP 36.9; O2SAT 99; BMI 28.9
--- OUTSIDE RECORDS SUMMARY | 2025-07-09 12:54 | XMS_ITS | Encounter Summary ---
Author Organization [facility] Address [address] [place] [address] Care Team Providers Care Suppression Crew Leader Name Role Phone Sai Landrum MD Unavailable [phone] Sai Landrum MD Primary Care Provider + [phone] Jr. Marcial Borrero DO Unavailable [phone] Jesse Cabrera MD Unavailable [phone] Antonina Albrecht MD Unavailable Andreea Sousa Unavailable [phone] Encounter Details DateTypeDepartmentCare Team (Latest Contact Info)Nevdonhcaac52/20/2025Patient Outreach [facility] [address] [place] [address] Emma Woodard LPN [address] [place] [address] Social History Tobacco UseTypesPacks/DayYears UsedDateSmoking Tobacco: NeverSmokeless Tobacco: NeverAlcohol UseStandard Drinks/PdwpKjvsecojTis12 (1 standard drink = 0.6 oz pure alcohol)PHQ-2AnswerDate RecordedPatient Health Questionnaire-2 Score1 03/23/2025Sex and Gender InformationValueDate RecordedSex Assigned at BirthNot on fileLegal RanArvu8611/28/2022 8:13 PM EDTGender IdentityNot on fileSexual OrientationNot on filedocumented as of this encounter Progress Notes * Emma Woodard LPN - 07/05/2025 10:20 AM EDT Images from the original note were not included. Pt was adm to [facility] on 06/28 for Left hip fracture status post mechanical fall status postleft peritrochanteric femur fracture with long cephalomedullary nail on 06/29/[address] Ramsey. He was Dc'ed on 101/7. This Nurse spoke with patient, spouse, and daughter, and completed [facility]. Spouse, Chica, reported that pt's pain is a 1 out 10 in pain scale. He has been taking PRN Percocet and Ibuprofen. Pt is ambulating with walker, and declined fall since he has been home. Incisionto left hip is covered with dressing which is clean, dry, and intact. Pt declined fever, chills, constipation, appetite issues, and N&V. His daughter is visiting and helping them until she [place] to[place] to [place]. All of their children live out of the state, but does have friends who check in. M edications were reconciled with patient's daughter. Per daughter, pt's BP at home have been on the lower side, and was instructed to hold amlodipine and lisinopril if SBP <110. Pt will need a new referral for Orthopedics. HFU appt with PCP in process to be scheduled since Dr. Landrum is booked up. This nurse will inquire for pt, and daughter is aware that we will call back. Chica would like to know inquire about a lift chair at appt. This nurse explained and offered CCM 30 day monitor. Pt and spouse agreed. They are aware that [facility] referral is in process. No further questions or concerns at this time. Flowsheet Row Patient Outreach from 07/05/2025 in [facility] [employer] with Emma Woodard LPN Hospital Information ED, Hospital or Intermediate Facility Discharge? Hospital Patient has been contacted within two business days of discharge Yes Diagnosis Left hip fracture status post mechanical fall status postleft peritrochanteric femur fracture with long cephalomedullary nail on 06/29/2025 Discharge Date 07/02/25 Discharged To: Home Setting Discharge Hospital Other (use comment) [[facility]] Engagement Call Start Time 1020 Admission Date 06/28/25 Medications Discharge medications reviewed and reconciled from hospital? Yes Is the patient having any side effects they believe may be caused by any medication additions or changes? No Does the patient have all medications ordered at discharge? Yes Nursing Interventions Nurse provided patient education Prescription Comments New: ASA 325MG BID, Iron 325mg daily, Robaxin 500mg TID, Percocet 5-325mg, Miralax CHANGED: Lisinopril 20mg and amlodipine 5mg STOPPED: Relafen 750mg Is the patient taking all medications as directed (includes completed medication regime)? Yes Nursing Interventions Nurse provided patient education Appointments Does the patient have a primary care provider? Yes Nursing Interventions Verified appointment date/time/provider Self Management Does patient have home health? yes [[facility] referral in process] Follow Up Tasks Home Health, Durable Medical Equipment (DME) [Pt/ spouse was inquiring about HHC and lift chair] Patient Teaching Does the patient have access to their discharge instructions? Yes Nursing Interventions Reviewed instructions with patient What is the patient's perception of their health status since discharge? Improving Is the patient/caregiver able to teach back the hierarchy of who to call/visit for symptoms/problems? PCP, Specialist, Home Health nurse, Urgent Care, ED, 911 Yes Wrap Up Wrap Up Additional Comments DI: L HIP XR, XR UNI W/pelvi, L elbow XR, CT spine/cervial, CT head, echo Call End Time 1039 ' * CHALINO Awan - 07/05/2025 10:20 AM EDT <July 06, 2025, 13:39 - CHALINO Awan> Noted, will follow for 30 day monitoring documented in this encounter Plan of Treatment DateTypeDepartmentCare Team (Latest Contact Info)Qwmkiblswef87/11/2025 10:00 AM ESTOffice Visit [facility] 112 [facility] [address] [place] [address] Sai Landrum MD 112 [facility] [address] [place] [address] documented as of this encounter Visit Diagnoses Diagnosis Essential hypertension- Primary Unspecified essential hypertension Arthritis of carpometacarpal (CMC) joint of right thumb documented in this encounter Additional Health Concerns AssessmentNoted TimePHQ-9 Depression Total Score: 307 9:00 AM EDT documented as of this encounter Care Teams Team MemberRelationshipSpecialtyStart DateEnd Date Sai Landrum MD [address] [place] [address] [address] PCP - [facility]09/16/20 Sai Landrum MD [address] [place] [address] [address] PCP - GeneralFamily Medicine01/23/23 Jr. Marcial Borrero DO [address] [facility] [address] [place] [address] Referring PhysicianOrthopaedic Surgery03/23/25 Jesse Cabrera MD [address] [place] [address] Referring PhysicianCardiology03/23/25 Antonina Albrecht MD [address] [place] [address] Referring PhysicianDermatology03/23/25 Andreea Sousa, HOG FEEDER [address] [facility] [place] [address] Social WorkerFamily Rvizsguq31/20/2510documented as of this encounter
--- OUTSIDE RECORDS SUMMARY | 2025-07-09 12:54 | XMS_ITS | Encounter Summary ---
Author Organization [facility] Address [address] [place] [address] Care Team Providers Care Maintenance Dispatcher Name Role Phone Sai Landrum MD Unavailable [phone] Sai Landrum MD Primary Care Provider + [phone] Jr. Marcial Borrero DO Unavailable [phone] Jesse Cabrera MD Unavailable [phone] Antonina Albrecht MD Unavailable Andreea Sousa Unavailable [phone] Encounter Details DateTypeDepartmentCare Team (Latest Contact Info)Kufcmhoezvo86/21/2025Patient Outreach [facility] [address] [place] [address] Emma Woodard LPN [address] [place] [address] Social History Tobacco UseTypesPacks/DayYears UsedDateSmoking Tobacco: NeverSmokeless Tobacco: NeverAlcohol UseStandard Drinks/QpluWpvbxvdbNut15 (1 standard drink = 0.6 oz pure alcohol)PHQ-2AnswerDate RecordedPatient Health Questionnaire-2 Score1 03/23/2025Sex and Gender InformationValueDate RecordedSex Assigned at BirthNot on fileLegal WylHmzq9211/28/2022 8:13 PM EDTGender IdentityNot on fileSexual OrientationNot on filedocumented as of this encounter Plan of Treatment DateTypeDepartmentCare Team (Latest Contact Info)Afoppkbuqme13/11/2025 10:00 AM ESTOffice Visit [facility] [place] [facility] [address] [facility] [address] [place] [address] Sai Landrum MD [address] [facility] [address] [place] [address] (Fax) documented as of this encounter Visit Diagnoses Not on filedocumented in this encounter Additional Health Concerns AssessmentNoted TimePHQ-9 Depression Total Score: 9:00 AM EDT documented as of this encounter Care Teams Team MemberRelationshipSpecialtyStart DateEnd Date Sai Landrum MD [address] [facility] 100 [place] [address] (Fax) PCP - [facility]09/16/20 Sai Landrum MD 112 [facility] [address] [place] [address] (Fax) PCP - GeneralFamily Medicine01/23/23 Jr. Marcial Borrero DO [address] [facility] [address] [place] [address] Referring PhysicianOrthopaedic Surgery03/23/25 Jesse Cabrera MD [address] [place] [address] Referring PhysicianCardiology03/23/25 Antonina Albrecht MD [address] [facility] [place] [address] Referring PhysicianDermatology03/23/25 Andreea Sousa, SCHOOL PROGRAM DIRECTOR [address] [place] [address] Social WorkerFamily Kirjkbes62/20/2510documented as of this encounter
--- OUTSIDE RECORDS SUMMARY | 2025-07-09 12:54 | XMS_ITS | Encounter Summary ---
Author Organization [facility] Address [address] [place] [place] [address] Care Team Providers Care Plant Security Guard Name Role Phone Sai Landrum MD Unavailable [phone] Sai Landrum MD Primary Care Provider [phone] Jr. Marcial Borrero DO Unavailable [phone] Jesse Cabrera MD Unavailable [phone] Antonina Albrecht MD Unavailable Andreea Sousa Unavailable Encounter Details DateTypeDepartmentCare Team (Latest Contact Info)Amdgkmpfahu10/21/2025Patient Outreach [facility] [address] [place] [address] Andreea Sousa LSW [address] [place], [place] [address] Social History Tobacco UseTypesPacks/DayYears UsedDateSmoking Tobacco: NeverSmokeless Tobacco: NeverAlcohol UseStandard Drinks/PbhuAskrprgkKsl03 (1 standard drink = 0.6 oz pure alcohol)PHQ-2AnswerDate RecordedPatient Health Questionnaire-2 Score1 03/23/2025Sex and Gender InformationValueDate RecordedSex Assigned at BirthNot on fileLegal FkeFgjc3111/28/2022 8:13 PM EDTGender IdentityNot on fileSexual OrientationNot on filedocumented as of this encounter Progress Notes * CHALINO Awan - 07/06/2025 4:25 PM EDT <July 06, 2025, 16:25 - CHALINO Awan> Home health referral was faxed to [facility] today. Call received from Ketan advising they received referral. CHALINO confirms that wound care is not currently ordered, however concerns r/t to healing of surgical site have been mentioned and will be evaluated by PCP tomorrow. Ketan inquires if pt has a preferred agency or if we are aware of anyone locally that could take him. Advised Ketan we received contact from [facility] stating they cannot accept referral. Ketan advises they will send referrals out to in-network agencies and hope to have agency confirmed in next 24hrs - 72hrs. Reviewed in-network provider options through [employer]. Returned call to [facility] and spoke to Ketan, requested referral to [facility] or [facility]. Ketan advises that [facility] is not listed as a contracted agency despite agency being in-network with [facility]. He lists several agencies they sent referrals to, including [facility], [facility], & [employer] [facility] [employer]. He also sends referral to [facility] at request of this story writer. documented in this encounter Plan of Treatment DateTypeDepartmentCare Team (Latest Contact Info)Vgeyrsrehcw13/11/2025 10:00 AM ESTOffice Visit [facility] 100 Family Medicine [address] [address] Sai Landrum MD 112 [facility] 100 [place] [address] (Fax) documented as of this encounter Visit Diagnoses Diagnosis Essential hypertension- Primary Unspecified essential hypertension Arthritis of carpometacarpal (CMC) joint of right thumb documented in this encounter Additional Health Concerns AssessmentNoted TimePHQ-9 Depression Total Score: 307 9:00 AM EDT documented as of this encounter Care Teams Team MemberRelationshipSpecialtyStart DateEnd Date Sai Landrum MD 112 [address] [place] [address] PCP - [facility]09/16/20 Sai Landrum MD [address] [place] [address] 100 [place] [address] PCP - GeneralFamily Medicine01/23/23 Jr. Marcial Borrero DO [address] [facility] [address] [place] [address] Referring PhysicianOrthopaedic Surgery03/23/25 Jesse Cabrera MD [address] [place] [address] Referring PhysicianCardiology03/23/25 Antonina Albrecht MD [address] [place] [address] Referring PhysicianDermatology03/23/25 Andreea Sousa, CHALINO [address] [place] [address] Social WorkerFamily Wminjesp31/20/2510documented as of this encounter
--- OUTSIDE RECORDS SUMMARY | 2025-07-09 12:54 | XMS_ITS | Encounter Summary ---
Author Organization [facility] Address [address] [place] [address] Care Team Providers Care Silk Washing Machine Operator Name Role Phone Sai Landrum MD Unavailable [phone] Sai Landrum MD Primary Care Provider + [phone] Jr. Marcial Borrero DO Unavailable [phone] Jesse Cabrera MD Unavailable [phone] Antonina Albrecht MD Unavailable Reason for Visit * ReasonOnset DateCommentsCare Hzriusdyiksx19/14/2025 Encounter Details DateTypeDepartmentCare Team (Latest Contact Info)Vqluqdaoqho05/14/2025Telephone [facility] [address] [address] Acacia Romero MA Care Coordination Social History Tobacco UseTypesPacks/DayYears UsedDateSmoking Tobacco: NeverSmokeless Tobacco: NeverAlcohol UseStandard Drinks/XtmlEhqhjgwfXho82 (1 standard drink = 0.6 oz pure alcohol)PHQ-2AnswerDate RecordedPatient Health Questionnaire-2 Score1 03/23/2025Sex and Gender InformationValueDate RecordedSex Assigned at BirthNot on fileLegal BcmJerx0011/28/2022 8:13 PM EDTGender IdentityNot on fileSexual OrientationNot on filedocumented as of this encounter Miscellaneous Notes * Telephone Encounter - Acacia MUSA Romero - 06/29/2025 10:50 AM EDT Chica called and stated they were out of town for a and she fell and it caused emelina to fall and he broke his left hip. He is having hip surgery this afternoon. She will let us know when he is released. documented in this encounter Plan of Treatment DateTypeDepartmentCare Team (Latest Contact Info)Ajrympfvhqr12/11/2025 10:00 AM ESTOffice Visit [facility] [place] [address] [facility] 112 [address] [place] [address] Sai Landrum MD [address] [address] documented as of this encounter Visit Diagnoses Not on filedocumented in this encounter Additional Health Concerns AssessmentNoted TimePHQ-9 Depression Total Score: 9:00 AM EDT documented as of this encounter Care Teams Team MemberRelationshipSpecialtyStart DateEnd Date Sai Landrum MD [address] [address] PCP - [facility]09/16/20 Sai Landrum MD [address] [address] PCP - GeneralFamily Medicine01/23/23 Jr. Marcial Borrero DO [address] [address] Referring PhysicianOrthopaedic Surgery03/23/25 Jesse Cabrera MD [address] [place] [address] Referring PhysicianCardiology03/23/25 Antonina Albrecht MD [address] [place] [address] Referring PhysicianDermatology03/23/25documented as of this encounter
--- OUTSIDE RECORDS SUMMARY | 2025-07-09 12:54 | XMS_ITS | Clinical Summary ---
Author Organization [facility] Address [address] [place] [address] Care Team Providers Care Auto Body Repairer Name Role Phone Sai Landrum MD Primary Care Provider [phone] Allergies No known active allergies Medications MedicationSigDispense QuantityRefillsLast FilledStart DateEnd DateStatus potassium gluconate 2.5 mEq tablet in the morning.Active aspirin 81 mg EC tablet Take 1 tablet by mouth in the morning.Active atorvastatin (Lipitor) 40 mg tablet Take 1 tablet by mouth in the morning.Active nabumetone (Relafen) 750 mg tablet Take 2 tablets by mouth in the morning.04/03/2023ctive lisinopril 40 mg tablet Take 40 mg by mouth in the morning.Active magnesium oxide 400 mg magnesium capsule Take 1 capsule every day by oral route.Active omeprazole (PriLOSEC) [address] capsule 20 mg 1 (one) time each day.02/10/2023ctive amLODIPine (Norvasc) 5 mg tablet Take 5 mg by mouth in the morning.Active Active Problems ProblemNoted DateDiagnosed DateCoronary artery disease involving hualapai coronary artery of hualapai heart without angina gequspnh89/09/2023 Overview (04/24/2023): ??Date: 07/05/2021 Cardiovascular Laboratory Report IMPRESSIONS: 1. 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 2. Wymq-fs-zkovtpny disease of the left anterior descending coronary artery. 3. Ectasia of the right coronary artery with sluggish flow consistent with endothelial dysfunction. 4. Normal left ventricular systolic function by noninvasive imaging. Assessment & Plan (05/27/2024 9:39 AM EDT): Coronary artery disease is stable. No concerning symptoms. Continue GDMT with aspirin, metoprolol, statin. Lipid levels are well controlled. No activity limiting symptoms, doing well. continue risk factor modifications- heart healthy diet, regular exercise as tolerated and continue all medications. Assessment & Plan (04/24/2023 12:08 PM EDT): Coronary artery disease is stable without any concerning symptoms Continue GDMT- ASA, lipitor, metoprolol and lisinopril continue risk factor modifications- heart healthy diet, regular exercise as tolerated and continue all medications. Benign essential HTN04/24/2023 Assessment & Plan (05/27/2024 9:39 AM EDT): Hypertension is well controlled on metoprolol and lisinopril. Renal function stable. Assessment & Plan (04/24/2023 12:07 PM EDT): Hypertension is well controlled at home and most likely white coat syndrome in office today Continue lisiopril, metoprolol Mixed yqgegjybjusdda89/09/2023 Assessment & Plan (05/27/2024 9:40 AM EDT): Lipid abnormalities are well controlled. Continue lipitor. Repeat lipid level at 1 year. Assessment & Plan (04/24/2023 12:08 PM EDT): Continue lipitor Arthritis of carpometacarpal (CMC) joint of right thumb02/26/2023ependence on other enabling machines and wpopwcy3702/26/2023Essential vdlgwx2302/26/2023First degree AV block02/26/2023astroesophageal reflux disease without esophagitis 02/26/2023Hypertensive ylqfkemoflx85/13/6407Wizlycevuzzdrxas34/13/2023Nodular prostate without lower urinary tract ogkdemwi77/13/2023Nonrheumatic aortic valve xuikqajiaiayz14/13/2023 Assessment & Plan (05/27/2024 9:41 AM EDT): No concerning symptoms. No significant murmur noted. Will discuss repeat Echo at next visit, or with any concerning symptoms. Nonrheumatic mitral valve smtypehrvkwjr83/13/2023Obstructive sleep apnea (adult) (pediatric)02/26/2023Other pvmppqif98/13/2023Over hrdrej1302/26/2023olyp of colon 02/26/2023ulmonary /13/2023 Assessment & Plan (05/27/2024 9:41 AM EDT): Good aerobic capacity. Still able to push mow his lawn. Sick sinus mbpggpak75/13/2023Stage 2 chronic kidney kbjrvdk5602/26/2023Sinus hjdlxnyifwq59/06/2021VC (premature ventricular contraction)08/21/2021 Kgrxtvdghqz94/11/2021 Assessment & Plan (05/27/2024 9:42 AM EDT): Stable. No concerning symptoms. HR 70 today with metoprolol Renal artery /11/2021 Encounters DateTypeDepartmentCare RfieQcyvtlijfvu97/24/2025Results Follow-Up Cardiology [address] [place] [phone] Evelyn Medeiros CNP Complete Echo (TTE) w/wo Imaging Agent, Strain, 3D, Bubble Study06/02/2025Orders Only [facility] [address] [place] [address] ProviderBlanca MD 05/26/2025 9:00 AM EDTOffice Visit [facility] [address] [place] [address] Evelyn Medeiros CNP Nonrheumatic tricuspid valve regurgitation (Primary Dx); Heart murmur; Nonrheumatic aortic valve insufficiency; Coronary artery disease involving hualapai coronary artery of hualapai heart without angina pectoris; Benign essential HTN; Bradycardia; Mixed hyperlipidemia; Pulmonary hypertension (CMS/HCC)from Last 3 Months Family History Medical HistoryRelationNameCommentsTuberculosisFatherRelationNameStatusComments FatherDeceasedMotherDeceased Social History Tobacco UseTypesPacks/DayYears UsedDateSmoking Tobacco: FormerCigarettes Smokeless Tobacco: Never Tobacco Cessation:Counseling Given: Not Answered Alcohol UseStandard Drinks/WeekCommentsYes0 (1 standard drink = 0.6 oz pure alcohol)couple glasses of wine dailyUT Safety & EnvironmentAnswerDate Recorded Fear of Current or Ex-PartnerNot on file11/07/2023Emotionally AbusedNot on file 11/07/2023hysically AbusedNot on file11/07/2023Sexually AbusedNot on file 11/07/2023hysically or Sexually AbusedNot on file11/07/2023Sex and Gender InformationValueDate RecordedSex Assigned at FsgogVfbw30/05/2025 1:26 PM EDT Legal AwzPoul9303/14/2022 10:34 PM EDTGender OtfgucitKlzd25/05/2025 1:26 PM EDT Sexual OrientationHeterosexual or Zatumynr21/05/2025 1:26 PM EDT Last Filed Vital Signs Vital SignReadingTime TakenCommentsBlood Psvfqiay944/71005/26/2025 8:58 AM EDT Oojgi1062/10/2025 8:58 AM EDTTemperature--Respiratory Rate--Oxygen Nzhfwlfwqo78% 05/26/2025 8:58 AM EDTInhaled Oxygen Concentration--Awjxqo79.9 kg (163 lb) 05/26/2025 8:58 AM VAJQhuiyk611.6 cm (5' 6 )05/26/2025 8:58 AM EDTBody Mass Index26.3109 8:58 AM EDT Plan of Treatment Health MaintenanceDue DateLast DoneCommentsMedicare Annual Wellness (AWV) 1939Depression Hwrmgugwk90/07/1952neumococcal Vaccine: 50+ Years (1 of 2 - PCV)1958dult Jlsqgxd6210/23/1961Zoster Vaccines (1 of 2)1989Fall Risk Agcjeridl58/07/2005COVID-19 Vaccine (5 - season)2025 08/15/2022, 07/12/2021, 11/03/2020, Additional history existsInfluenza Vaccine (#1), 08/04/2021HIB VaccinesAged OutNo longer eligible based on patient's age to complete this topicHPV VaccinesAged OutNo longer eligible based on patient's age to complete this topicIPV VaccinesAged OutNo longer eligible based on patient's age to complete this topicMeningococcal B Vaccine Aged OutNo longer eligible based on patient's age to complete this topic Meningococcal VaccineAged OutNo longer eligible based on patient's age to complete this topicRotavirus VaccinesAged OutNo longer eligible based on patient's age to complete this topic Procedures Procedure NamePriorityDate/TimeAssociated DiagnosisCommentsCOMPLETE TRANSTHORACIC ECHO (TTE) W/WO IMAGING AGENT, STRAIN, 3D, BUBBLE STUDYRoutine 06/02/2025 1:01 PM EDT from Last 3 Months Results * Complete Echo (TTE) w/wo Imaging Agent, Strain, 3D, Bubble Study (06/02/2025 1:01 PM EDT)Anatomical RegionLateralityModalityUltrasound Narrative Authorizing ProviderResult TypeResult StatusHistorical Provider MDCV ECHO PROCEDURESFinal Result from Last 3 Months Insurance Care Teams Team MemberRelationshipSpecialtyStart DateEnd Date Sai Landrum MD [facility]04/22/23
--- OUTSIDE RECORDS SUMMARY | 2025-07-09 12:54 | XMS_ITS | Encounter Summary ---
Author Organization [facility] Address [address] [place] [address] Care Team Providers Care Garage Laborer Name Role Phone Sai Landrum MD Unavailable [phone] Sai Landrum MD Primary Care Provider + [phone] Jr. Marcial Borrero DO Unavailable [phone] Jesse Cabrera MD Unavailable [phone] Antonina Albrecht MD Unavailable Andreea Sousa Unavailable [phone] Reason for Visit * ReasonOnset DpsmAsuojruyBmdvvrph19/20/2025 Encounter Details DateTypeDepartmentCare Team (Latest Contact Info)Nqtczdqtayv11/20/2025Telephone [facility] [address] [address] Heather December, MUSA Referral Social History Tobacco UseTypesPacks/DayYears UsedDateSmoking Tobacco: NeverSmokeless Tobacco: NeverAlcohol UseStandard Drinks/EmzwVsxiqekkXqr33 (1 standard drink = 0.6 oz pure alcohol)PHQ-2AnswerDate RecordedPatient Health Questionnaire-2 Score1 03/23/2025Sex and Gender InformationValueDate RecordedSex Assigned at BirthNot on fileLegal PyyJuwa5511/28/2022 8:13 PM EDTGender IdentityNot on fileSexual OrientationNot on filedocumented as of this encounter Miscellaneous Notes * Telephone Encounter - December MUSA Romero - 07/05/2025 8:39 AM EDT Copied from VM: Good afternoon. My name is Sophia. I am calling from [facility] and this message is for Television News Producer Acacia. I am calling regarding request for home health services for a patient. For patient Nimesh Cardenas and I am calling to advise that we are unable to process this request because the orders are incomplete. Missing patient demographics, home health orders with disciplinessigned by the medication list H. P. And the most recent problem note if you have any questions,my phone number is [phone], extension [phone], and again, my name is Cyndi for number [phone], extension [phone], thank you. Cindy or Asya can either of you help me with this? I have it in the referral and I thought I attached all of that but I have never done a referral like this before. documented in this encounter Plan of Treatment DateTypeDepartmentCare Team (Latest Contact Info)Naoacablrce75/11/2025 10:00 AM ESTOffice Visit [facility] [place] [address] Family Medicine [address] [place], [place] [address], [place] [address] Sai Landrum MD [address] [place], [place] [address], [place] [address] (Fax) documented as of this encounter Visit Diagnoses Not on filedocumented in this encounter Additional Health Concerns AssessmentNoted TimePHQ-9 Depression Total Score: 307 9:00 AM EDT documented as of this encounter Care Teams Team MemberRelationshipSpecialtyStart DateEnd Date Sai Landrum MD [address] [place] [address] (Fax) PCP - Devoted09/16/20 Sai Landrum MD 112 [place] [address] [place] [address] PCP - GeneralFamily Medicine01/23/23 Jr. Marcial Borrero DO [address] [facility] [address] [place] [address] Referring PhysicianOrthopaedic Surgery03/23/25 Jesse Cabrera MD [address] [place] [address] Referring PhysicianCardiology03/23/25 Antonina Albrecht MD [address] [place] [address] Referring PhysicianDermatology03/23/25 Andreea Sousa, CLEAN ROOM ASSEMBLER [address] [place] [address] Social WorkerFamily Rhpnrkse66/20/2510documented as of this encounter
--- OUTSIDE RECORDS SUMMARY | 2025-07-09 12:54 | XMS_ITS | Encounter Summary ---
Author Organization [facility] Address [address] [place] [address] Care Team Providers Care Boring Machine Operator Production Name Role Phone Sai Landrum MD Unavailable [phone] Sai Landrum MD Primary Care Provider + [phone] Jr. Marcial Borrero DO Unavailable [phone] Jeses Cabrera MD Unavailable [phone] Antonina Albrecht MD Unavailable Reason for Referral * Home Health (Routine) - Pending ReviewSpecialtyDiagnoses / ProceduresReferred By ContactReferred To [facility] Diagnoses Fall from standing, sequela Closed fracture of left hip, sequela Post-operative state Closed displaced intertrochanteric fracture of left femur, sequela Sai Landrum MD [address] [address] Phone: tel: fax: UnallocatedBernadette MD [address] [place] [address] Phone: tel: fax: Referral IDStatusReasonStart DateExpiration DateVisits RequestedVisits [id number] Review Specialty Services Required [id number] Reason for Visit * ReasonOnset DateCommentsCare Xzgkggulmqeg99/15/2025 Encounter Details DateTypeDepartmentCare Team (Latest Contact Info)Asqvywjckxr49/15/2025Telephone [facility] [address] [facility] [address] [place] [address] Acacia Harris MA Care Coordination Social History Tobacco UseTypesPacks/DayYears UsedDateSmoking Tobacco: NeverSmokeless Tobacco: NeverAlcohol UseStandard Drinks/KkuxJqsnfbmfAdt95 (1 standard drink = 0.6 oz pure alcohol)PHQ-2AnswerDate RecordedPatient Health Questionnaire-2 Score1 03/23/2025Sex and Gender InformationValueDate RecordedSex Assigned at BirthNot on fileLegal IcgFhxw3311/28/2022 8:13 PM EDTGender IdentityNot on fileSexual OrientationNot on filedocumented as of this encounter Miscellaneous Notes * Addendum Note - Acacia Harris MA - 07/01/2025 12:00 PM EDTAddended by: ACACIA HARRIS on: 07/01/2025 12:00 PM Modules accepted: Orders * Telephone Encounter - Acacia Harris MA - 07/01/2025 12:00 PM EDT VO from [facility] to send orders. Faxed to [facility] [phone] * Telephone Encounter - Acacia Harris MA - 07/01/2025 11:31 AM EDT The discharge HAY FARMER Liaison from [place] called and she stated that they had a team huddle later this morning and because Michele's BP has been a little low today they are leaning on keeping him one moreday to get it more stabilized. I did let her know we received the notes we needed. I advised her I would speak with at lunch and will see about getting the HH referral sent out so [facility] have a chance to get everything precert before he gets home. * Telephone Encounter - Acacia Harris MA - 07/01/2025 10:43 AM EDT EH we did get that face to face today. I have spoke with [facility] ladies and they stated that devoted patients are required to go through [facility] * Telephone Encounter - Acacia Harris MA - 06/30/2025 3:45 PM EDT Chica called and stated on the phone Michele had his surgery yesterday. He has done PT twice today. Theyare discharging him tomorrow and they wanted him to get home health but because we are [facility] they wont order the home health for him. I talked to the daughter and had her write information down for the nurse and or dr that sees him tomorrow that we definitely need the face to face done in the hospital because it isn't possible for Chica to get him to our office by herself. She is going to have them fax all that to the office. documented in this encounter Plan of Treatment DateTypeDepartmentCare Team (Latest Contact Info)Mhmmzrbakzu38/11/2025 10:00 AM ESTOffice Visit [facility] 112 [facility] 100 [place] [address] Sai Landrum MD 112 [facility] 100 [place] [address] NameTypePriorityAssociated DiagnosesOrder ScheduleAmbulatory referral to Home HealthOutpatient ReferralRoutine Fall from standing, sequela Closed fracture of left hip, sequela Post-operative state Closed displaced intertrochanteric fracture of left femur, sequela Expected: 07/01/2025 (Approximate), Expires: 12/30/2025documented as of this encounter Visit Diagnoses Diagnosis Fall from standing, sequela Closed fracture of left hip, sequela Post-operative state Other postprocedural status Closed displaced intertrochanteric fracture of left femur, sequela documented in this encounter Additional Health Concerns AssessmentNoted TimePHQ-9 Depression Total Score: 307 9:00 AM EDT documented as of this encounter Care Teams Team MemberRelationshipSpecialtyStart DateEnd Date Sai Landrum MD [address] [address] PCP - Devoted09/16/20 Sai Landrum MD [address] [address] PCP - GeneralFamily Medicine01/23/23 Jr. Marcial Borrero DO [address] [address] Referring PhysicianOrthopaedic Surgery03/23/25 Jesse Cabrera MD [address] [place] [address] Referring PhysicianCardiology03/23/25 Antonina Albrecht MD [address] [place] [address] Referring PhysicianDermatology03/23/25documented as of this encounter
--- OUTSIDE RECORDS SUMMARY | 2025-07-09 12:54 | XMS_ITS | Encounter Summary ---
Author Organization [facility] Address [address] [place] [address] Care Team Providers Care Supervisor Electric Motor Testing Name Role Phone Sai Landrum MD Unavailable [phone] Sai Landrum MD Primary Care Provider [phone] Jr. Marcial Borrero DO Unavailable [phone] Jesse Cabrera MD Unavailable [phone] Antonina Albrecht MD Unavailable Andreea Sousa Unavailable [phone] Reason for Visit * ReasonOnset DateCommentsCare Uqlqnkrmkdcb81/20/2025 Encounter Details DateTypeDepartmentCare Team (Latest Contact Info)Ihbshvaxcbn38/20/2025Telephone [facility] Patricia [address] [place] [phone] Acacia Romero MA Care Coordination Social History Tobacco UseTypesPacks/DayYears UsedDateSmoking Tobacco: NeverSmokeless Tobacco: NeverAlcohol UseStandard Drinks/YhreVhvzzjbvVjo78 (1 standard drink = 0.6 oz pure alcohol)PHQ-2AnswerDate RecordedPatient Health Questionnaire-2 Score1 03/23/2025Sex and Gender InformationValueDate RecordedSex Assigned at BirthNot on fileLegal NacYaxq4711/28/2022 8:13 PM EDTGender IdentityNot on fileSexual OrientationNot on filedocumented as of this encounter Miscellaneous Notes * Telephone Encounter - December MUSA Romero - 07/06/2025 10:53 AM EDT Images from the original note were not included. Copied note from [facility] Chart: EH I scheduled the OV, Please advise how you want to proceed with possible post op complications. Iknow they need a referral to ortho from the Hospital Follow up but this is concerning. Then to Andreea. Andreea, per conversation with you [facility] ladies I sent the referral to [facility] which is who they have to go through for [facility]. I got a phone call from [facility] yesterday because they thought they were going to do HH but they do not have anyone in the area or take his insurance. I also had a message yesterday that the referral to [facility] was missing things but Asya looked it over for me and stated I was not missing anything so we printed the entire referral with demographics and face to face and faxed it all in one to be sure that it was all in the same fax. * Telephone Encounter - Acacia Romero MA - 07/06/2025 10:20 AM EDT Both Chica and Michele's cell phones got straight to . * Telephone Encounter - Acacia Romero MA - 07/05/2025 2:52 PM EDT Attempted to call pt and see per if they went to the ER and if so what was going on with that. No answer, left asking her to call us back and let us know how he is doing. * Telephone Encounter - Acacia Romero MA - 07/05/2025 12:06 PM EDT Pt called and stated Michele is home and he has been taking his pain medication regularly and forthe first time since the surgery he is having terrible stabbing pain that feels knife like and she wanted to know what he should do. I advised her he is less than a week post op with new pain symptoms and is not here I believe it is in her best interests to go through the ER to rule out post op complications. Sending to you as FYI documented in this encounter Plan of Treatment DateTypeDepartmentCare Team (Latest Contact Info)Geyedufzbsn82/11/2025 10:00 AM ESTOffice Visit [facility] [place] [address] Family Medicine 112 [facility] 100 [place] [address] Sai Landrum MD 112 [facility] 100 [place] [address] documented as of this encounter Visit Diagnoses Not on filedocumented in this encounter Additional Health Concerns AssessmentNoted TimePHQ-9 Depression Total Score: 9:00 AM EDT documented as of this encounter Care Teams Team MemberRelationshipSpecialtyStart DateEnd Date Sai Landrum MD 112 [facility] 100 [place] [address] PCP - Devoted09/16/20 Sai Landrum MD [address] [address] PCP - GeneralFamily Medicine01/23/23 Jr. Marcial Borrero DO [address] [facility] [address] [place] [address] Referring PhysicianOrthopaedic Surgery03/23/25 Jesse Cabrera MD [address] [place] [address] Referring PhysicianCardiology03/23/25 Antonina Albrecht MD [address] [place] [address] Referring PhysicianDermatology03/23/25 Andreea Sousa, CHALINO [address] [place] [address] Social WorkerFamily Cnuhslhj61/20/2510documented as of this encounter
--- OUTSIDE RECORDS SUMMARY | 2025-07-09 12:54 | XMS_ITS | Clinical Summary ---
Author Organization [employer] Address [id number] [address] [place] [address] Care Team Providers Care Tray Filler Name Role Phone Sai Landrum MD Primary Care Provider + [phone] Social History Tobacco UseTypesPacks/DayYears UsedDateSmoking Tobacco: Never AssessedSex and Gender InformationValueDate RecordedSex Assigned at BirthNot on fileLegal Sex Male06/11/2023 9:47 AM EDTGender IdentityNot on fileSexual OrientationNot on file Plan of Treatment Health MaintenanceDue DateLast DoneCommentsDepression Uqjnzltoy53/07/1952Tobacco Nlvtpuryc06/07/1952Zoster (Shingles) Vaccine (1 of 2)1989Fall Risk Omakpjmsx37/07/2005COVID-19 Vaccine ( - 2024- season)5110/15/2021, 07/12/2021, 11/03/2020, Additional history existsInfluenza Ftnjqbi7305/17/2025 07/11/2022, 08/04/2021TaP,Tdap and Td Vaccines (2 - Tdap) Medical Devices Not on file Insurance * Guarantor: Nimesh DuranAccount TypeRelation to PatientDate of BirthPhone Billing AddressPersonal/CtfugcPugb05/07/1941 [address] [place] [address] Care Teams Team MemberRelationshipSpecialtyStart DateEnd Date Sai Landrum MD [facility]
--- OUTSIDE RECORDS SUMMARY | 2025-07-09 12:55 | XMS_ITS | Encounter Summary ---
Author Organization [facility] Address [address] [place] [address] Care Team Providers Care Senior Advisory Name Role Phone Sai Landrum MD Unavailable [phone] Sai Landrum MD Primary Care Provider [phone] Jr. Marcial Borrero DO Unavailable [phone] Jesse Cabrera MD Unavailable [phone] Antonina Albrecht MD Unavailable Reason for Visit * ReasonOnset DateCommentsCare Zcpsuqfmhrby98/23/2025 Encounter Details DateTypeDepartmentCare Team (Latest Contact Info)Gghkvywjizc68/23/2025Telephone [facility] [address] Medicine [address] [place] [address] Sai Landrum MD [address] [place] [address] Care Coordination Social History Tobacco UseTypesPacks/DayYears UsedDateSmoking Tobacco: NeverSmokeless Tobacco: NeverAlcohol UseStandard Drinks/TzyfNqihoopwXxs40 (1 standard drink = 0.6 oz pure alcohol)PHQ-2AnswerDate RecordedPatient Health Questionnaire-2 Score1 03/23/2025Sex and Gender InformationValueDate RecordedSex Assigned at BirthNot on fileLegal UqyOwcn5711/28/2022 8:13 PM EDTGender IdentityNot on fileSexual OrientationNot on filedocumented as of this encounter Miscellaneous Notes * Telephone Encounter - December MUSA Romero - 07/08/2025 5:03 PM EDT HH Andreea and I have already taken care of. Andreea, there was talk of a lift chair and the face to face for it at his [facility] but Chica was supposed to check with [facility] about pricing and coverage. * Telephone Encounter - Sapna Neeru - 07/08/2025 4:55 PM EDT Copied from phone message- [employer], my name is Kristine, I am calling on behalf of Nimesh Duran, I am calling with [employer],I am calling both because he is in need of having some referrals sent to [facility] for home healthand also a seat lift, if you could please contact them back at [phone] To reach [facility], the phone number is [phone] and the fact number is [phone]. And if you need provider services information, please call us back at . That would be greatly appreciated. Thank you. So much and have a great day. documented in this encounter Plan of Treatment DateTypeDepartmentCare Team (Latest Contact Info)Xyhrnyiuqud52/11/2025 10:00 AM ESTOffice Visit [facility] Medicine 112 [facility] 100 [place] [address] Sai Landrum MD 112 [facility] 100 [place] [address] documented as of this encounter Visit Diagnoses Not on filedocumented in this encounter Additional Health Concerns AssessmentNoted TimePHQ-9 Depression Total Score: 9:00 AM EDT documented as of this encounter Care Teams Team MemberRelationshipSpecialtyStart DateEnd Date Sai Landrum MD [address] [place] [address] (Fax) PCP - Devoted09/16/20 Sai Landrum MD [address] [place] [address] [address] [place] [address] PCP - GeneralFamily Medicine01/23/23 Jr. Marcial Borrero DO [address] [facility] [address] [place] [address] Referring PhysicianOrthopaedic Surgery03/23/25 Jesse Cabrera MD [address] [place] [address] Referring PhysicianCardiology03/23/25 Antonina Albrecht MD [address] [place] [address] Referring PhysicianDermatology03/23/25documented as of this encounter
--- OUTSIDE RECORDS SUMMARY | 2025-07-09 12:55 | XMS_ITS ---
Author Organization [facility] Address [address] [place] [address] Care Team Providers Care Inside Sales Administrator Name Role Phone Sai Landrum MD Unavailable [phone] Sai Landrum MD Primary Care Provider [phone] Jr. Marcial Borrero DO Unavailable [phone] Jesse Cabrera MD Unavailable [phone] Antonina Albrecht MD Unavailable Chronic Care Management (CCM) Status:Closed (Closed) Start date:07/05/2025 Enrollment reason:Identified as high-risk End date:07/06/2025 Close reason:Moved to 30 Day Monitoring Program Overview <July 06, 2025, 13:40 - CHALINO Awan> Currently on 30 Day Monitoring program. Will offer enrollment at later date. Continued Care and Services Coordination
--- OUTSIDE RECORDS SUMMARY | 2025-07-09 12:55 | XMS_ITS ---
Author Organization [facility] Address [address] [place] [address] Care Team Providers Care Cone Classifier Tender Name Role Phone Sai Landrum MD Unavailable [phone] Sai Landrum MD Primary Care Provider [phone] Jr. Marcial Borrero DO Unavailable [phone] Jesse Cabrera MD Unavailable [phone] Antonina Albrecht MD Unavailable Inpatient Discharge Transitional Care Management (TCM) Status:Closed (Closed) Start date:07/02/2025 Enrollment date:07/05/2025 Enrollment reason:Identified using hospital discharge data End date:07/05/2025 Close reason:Moved to 30 Day Monitoring Program Overview Patient discharged from [facility] on 07/02. Please contact for hospital RACHELE and schedule follow-up appointment within 7-14 days. Continued Care and Services Coordination
--- OUTSIDE RECORDS SUMMARY | 2025-07-09 12:55 | XMS_ITS | Encounter Summary ---
Author Organization [facility] Address [address] [place] [address] Care Team Providers Care Application Lead Name Role Phone Sai Landrum MD Unavailable [phone] Sai Landrum MD Primary Care Provider + [phone] Jr. Marcial Borrero DO Unavailable [phone] Jesse Cabrera MD Unavailable [phone] Antonina Albrecht MD Unavailable Encounter Details DateTypeDepartmentCare Team (Latest Contact Info)Udyqmbgqjfs43/22/2025Travel Social History Tobacco UseTypesPacks/DayYears UsedDateSmoking Tobacco: NeverSmokeless Tobacco: NeverAlcohol UseStandard Drinks/BuohNxenpcblMuf40 (1 standard drink = 0.6 oz pure alcohol)PHQ-2AnswerDate RecordedPatient Health Questionnaire-2 Score1 03/23/2025Sex and Gender InformationValueDate RecordedSex Assigned at BirthNot on fileLegal SrnVgev9211/28/2022 8:13 PM EDTGender IdentityNot on fileSexual OrientationNot on filedocumented as of this encounter Plan of Treatment DateTypeDepartmentCare Team (Latest Contact Info)Zzufqxzkfyy80/11/2025 10:00 AM ESTOffice Visit [facility] Medicine [address] [place] [address] Sai Landrum MD [address] [place] [address] documented as of this encounter Visit Diagnoses Not on filedocumented in this encounter Additional Health Concerns AssessmentNoted TimePHQ-9 Depression Total Score: 9:00 AM EDT documented as of this encounter Care Teams Team MemberRelationshipSpecialtyStart DateEnd Date Sai Landrum MD [address] [address] PCP - Devoted09/16/20 Sai Landrum MD [address] [address] PCP - GeneralFamily Medicine01/23/23 Jr. Marcial Borrero DO [address] [address] Referring PhysicianOrthopaedic Surgery03/23/25 Jesse Cabrera MD [address] [place] [address] Referring PhysicianCardiology03/23/25 Antonina Albrecht MD [address] [place] [address] Referring PhysicianDermatology03/23/25documented as of this encounter
--- OUTSIDE RECORDS SUMMARY | 2025-07-09 12:55 | XMS_ITS | Encounter Summary ---
Author Organization [facility] Address [address] [place] [address] Care Team Providers Care Nutrition Associate Name Role Phone Sai Anderson MD Unavailable [phone] Sai Anderson MD Primary Care Provider [phone] Jr. Marcial Borrero DO Unavailable [phone] Jesse Cabrera MD Unavailable [phone] Antonina Albrecht MD Unavailable Encounter Details DateTypeDepartmentCare Team (Latest Contact Info)Hhwnuygliob04/23/2025Telephone NOM[facility] [address] [phone] Heather December, [place] Social History Tobacco UseTypesPacks/DayYears UsedDateSmoking Tobacco: NeverSmokeless Tobacco: NeverAlcohol UseStandard Drinks/KhyjRhpqjnsqBzu85 (1 standard drink = 0.6 oz pure alcohol)PHQ-2AnswerDate RecordedPatient Health Questionnaire-2 Score1 03/23/2025Sex and Gender InformationValueDate RecordedSex Assigned at BirthNot on fileLegal KtcHrcq1911/28/2022 8:13 PM EDTGender IdentityNot on fileSexual OrientationNot on filedocumented as of this encounter Miscellaneous Notes * Addendum Note - Sai Anderson MD - 07/08/2025 1:27 PM EDTAddended by: SAI ANDERSON on: 07/08/2025 01:27 PM Modules accepted: Orders * Telephone Encounter - Acacia Romero MA - 07/08/2025 9:59 AM EDT Chica called and stated that she counted out what Michele has left of percocet and he will not have enough to get through the weekend like they thought. documented in this encounter Plan of Treatment DateTypeDepartmentCare Team (Latest Contact Info)Azuoovhxipv03/11/2025 10:00 AM ESTOffice Visit [facility] [place] [address] Family Medicine [address] [address] Sai Anderson MD [address] [address] (Fax) documented as of this encounter Visit Diagnoses Diagnosis Closed fracture of left hip with routine healing- Primary Postoperative pain Other acute postoperative pain documented in this encounter Additional Health Concerns AssessmentNoted TimePHQ-9 Depression Total Score: 9:00 AM EDT documented as of this encounter Care Teams Team MemberRelationshipSpecialtyStart DateEnd Date Sai Anderson MD [address] [address] (Fax) PCP - Devoted09/16/20 Sai Anderson MD [address] [address] (Fax) PCP - GeneralFamily Medicine01/23/23 Jr. Marcial Borrero DO [address] [facility] [address] [place] [address] Referring PhysicianOrthopaedic Surgery03/23/25 Jesse Cabrera MD [address] [place] [address] Referring PhysicianCardiology03/23/25 BedAntonina apodaca MD [address] [place] [address] Referring PhysicianDermatology03/23/25documented as of this encounter
--- OUTSIDE RECORDS SUMMARY | 2025-07-09 12:55 | XMS_ITS | Encounter Summary ---
Author Organization [facility] Address [address] [place] [address] Care Team Providers Care Hide Dyer Name Role Phone Sai Landrum MD Unavailable [phone] Sai Landrum MD Primary Care Provider [phone] Jr. Marcial Borrero DO Unavailable [phone] Jesse Cabrera MD Unavailable [phone] Antonina Albrecht MD Unavailable Encounter Details DateTypeDepartmentCare Team (Latest Contact Info)Jgvqnlaslcy16/22/2025amboo flowsheet [facility] [address] [place] [address] Sai Landrum MD [address] [place] [address] Social History Tobacco UseTypesPacks/DayYears UsedDateSmoking Tobacco: NeverSmokeless Tobacco: NeverAlcohol UseStandard Drinks/JdihUsdpfyocZya88 (1 standard drink = 0.6 oz pure alcohol)PHQ-2AnswerDate RecordedPatient Health Questionnaire-2 Score1 03/23/2025Sex and Gender InformationValueDate RecordedSex Assigned at BirthNot on fileLegal OefNsja5711/28/2022 8:13 PM EDTGender IdentityNot on fileSexual OrientationNot on filedocumented as of this encounter Plan of Treatment DateTypeDepartmentCare Team (Latest Contact Info)Dfcafxrngph02/11/2025 10:00 AM ESTOffice Visit [facility] [address] [place] [address] Sai Landrum MD [address] [facility] [address] [place] [address] (Fax) documented as of this encounter Visit Diagnoses Not on filedocumented in this encounter Additional Health Concerns AssessmentNoted TimePHQ-9 Depression Total Score: 9:00 AM EDT documented as of this encounter Care Teams Team MemberRelationshipSpecialtyStart DateEnd Date Sai Landrum MD [address] [facility] [address] [place] [address] (Fax) PCP - Devoted09/16/20 Sai Landrum MD [address] [facility] [address] [place] [address] (Fax) PCP - GeneralFamily Medicine01/23/23 Jr. Marcial Borrero DO [address] [address] Referring PhysicianOrthopaedic Surgery03/23/25 Jesse Cabrera MD [address] [place] [address] Referring PhysicianCardiology03/23/25 Antonina Albrecht MD [address] [place] [address] Referring PhysicianDermatology03/23/25documented as of this encounter
--- OUTSIDE RECORDS SUMMARY | 2025-07-09 12:55 | XMS_ITS | Encounter Summary ---
Author Organization [facility] Address [address] [place] [address] Care Team Providers Care Tool Worker Name Role Phone Sai Landrum MD Unavailable [phone] Sai Landrum MD Primary Care Provider [phone] Jr. Marcial Borrero DO Unavailable [phone] Jesse Cabrera MD Unavailable [phone] Antonina Albrecht MD Unavailable Encounter Details DateTypeDepartmentCare Team (Latest Contact Info)Fjqryliubiy88/23/2025Patient Outreach [facility] [address] [place] [address] Andreea Sousa LSW [address] [facility] [address] Social History Tobacco UseTypesPacks/DayYears UsedDateSmoking Tobacco: NeverSmokeless Tobacco: NeverAlcohol UseStandard Drinks/UdrzJjgfnbauSxl52 (1 standard drink = 0.6 oz pure alcohol)PHQ-2AnswerDate RecordedPatient Health Questionnaire-2 Score1 03/23/2025Sex and Gender InformationValueDate RecordedSex Assigned at BirthNot on fileLegal VozKhob7711/28/2022 8:13 PM EDTGender IdentityNot on fileSexual OrientationNot on filedocumented as of this encounter Progress Notes * CHALINO Awan - 07/08/2025 2:10 PM EDT Images from the original note were not included. <July 08, 2025, 14:10 - CHALINO Awan> Called [facility] [phone]. HH referral is still pending, it has not been accepted by an agencyyet. <July 09, 2025, 11:50 - CHALINO Awan> Called and spoke to spouse Michelle (goes by [place]). They have not heard from a HH agency yet. MACHINE OPERATOR SLITTER TECHNICIAN will follow up on referral today. [place] did talk to [facility] and lift-chairs range $3k-$4k. CHALINO educates that medicare will only cover lift-mechanism of lift-chair and guidelines for coverage are very specific, and may take time to get authorized. Recommended checking local furniture stores as well for lift-chairs and these may be a bit more affordable compared to DME supplier. Asked [place] if she would like rx sent for lift-chair. She states she will look around first. They do have a raised toilet seat already and is not having difficulty getting on and off of toilet. Pt does havesome difficulty getting into bed. Daughter is currently there until Saturday to help out. Notified per December pt does not need to see Dr. Landrum next week for staple removal if pt can get in with ortho. Looking at referral it appears they are still determining where they can fit pt in. Provided [place] with MACHINE OPERATOR SLITTER TECHNICIAN contact info and encouraged to call with any questions or concerns. Flowsheet Row Patient Outreach from 07/08/2025 in [facility] with CHALINO Awan Week Number Call Week 1 Call Was patient contacted successfully? Yes [spoke to spouse] Have you had any urgent care/ED/Hospital visits since discharge? No Have you visited your PCP since discharge? Yes Have you visited your specialist since discharge? No [referred to ortho, not yet scheduled] What Durable Medical Equipment (DME) was ordered? has raised toilet seat, spouse looking into buying lift-chair What is the patient's perception of their health status since discharge? Improving Is the patient/caregiver able to teach back the hierarchy of who to call/visit for symptoms/problems? PCP, Specialist, Home Health nurse, Urgent Care, ED, 911 Yes documented in this encounter Plan of Treatment DateTypeDepartmentCare Team (Latest Contact Info)Bjvszyvcyig64/11/2025 10:00 AM ESTOffice Visit [facility] [address] [facility] [address] [place] [address] Sai Landrum MD 112 [facility] [address] [place] [address] (Fax) documented as of this encounter Visit Diagnoses Diagnosis Essential hypertension- Primary Unspecified essential hypertension Arthritis of carpometacarpal (CMC) joint of right thumb documented in this encounter Additional Health Concerns AssessmentNoted TimePHQ-9 Depression Total Score: 9:00 AM EDT documented as of this encounter Care Teams Team MemberRelationshipSpecialtyStart DateEnd Date Sai Landrum MD 112 [facility] [address] [place] [address] (Fax) PCP - Devoted09/16/20 Sai Landrum MD [address] [address] [place] [address] (Fax) PCP - GeneralFamily Medicine01/23/23 Jr. Marcial Borrero DO [address] [address] Referring PhysicianOrthopaedic Surgery03/23/25 Jesse Cabrera MD [address] [place] [address] Referring PhysicianCardiology03/23/25 Antonina Albrecht MD [address] [place] [address] Referring PhysicianDermatology03/23/25documented as of this encounter
--- OUTSIDE RECORDS SUMMARY | 2025-07-09 12:55 | XMS_ITS | CCD ---
Author Organization [facility] CliniSyla Care Team Providers Care Trench Digger Name Role Phone SELF, REFERRED Referring Unavailable ELTAHAWY, EHAB A Admitting Unavailable ELTAHAWY, EHAB A Attending Unavailable SELF, REFERRED Primary Care Unavailable MONICA, DR GEORGE Admitting Unavailable HEMEYER, DR GEORGE Attending Unavailable ANNETTAYER, DR GEORGE Primary Care Unavailable ANNETTAYER, DR GEORGE Consulting Unavailable BENITOY, DR HART Admitting Unavailable HOY, DR HART Attending Unavailable ANNETTAYER, DR GEORGE Primary Care Unavailable VASHTI, DR HART Consulting Unavailable Sai Anderson MD Unavailable Sai Anderson MD Primary Care Provider Sai Anderson MD Unavailable [phone] Sai Anderson MD Primary Care Provider Sai Anderson MD Unavailable Sai Anderson MD Primary Care Provider Jr. Marcial Borrero DO Unavailable Deborah HATFIELD Ehab Unavailable Antonina Albrecht MD Unavailable VALERIA STOKES Attending Unavailable Sai Anderson MD Primary Care Provider SAI ANDERSON Primary Care Unavailable MENSCHEL, RAMEZ BAHENA Referring Unavaila ble MENSCHEL, RAMEZ BAHENA Attending Unavaila ble SAI ANDERSON Primary Care Unavailable MENSCHEL, RAMEZ BAHENA Attending Unavaila ble MENSCHEL, RAMEZ BAHENA Referring Unavaila ble SAI ANDERSON Primary Care Unavailable MENSCHEL, RAMEZ BAHENA Attending Unavaila ble MENSCHEL, RAMEZ BAHENA Referring UnavailSAI Bergman Primary Care Unavailable RAMEZ DENNEY Referring UnavailRAMEZ Pelayo Attending UnavailSAI Bergman Primary Care Unavailable SO RAMSEY Referring Unavailable SO RAMSEY Attending SAI Prajapati Primary Care Unavailable RAMEZ DENNEY Attending UnavailLUIS Tyler Consulting Unavailable PHILIP FARIAS Admitting Unavailable EDUARDO MORTENSEN Consulting Unavailable VALENTINA PATIÑO Consulting Unavaila Jr. Marcial Boyd DO Unavailable Deborah HATFIELD, Eh Unavailable Antonina Albrecht MD Unavailable SAI ANDERSON Attending Unavailable SAI ANDERSON Attending SAI Prajapati Attending Unavailable SAI ANDERSON Attending Unavailable Medications Current Medications MedicationDrug Class(es)DatesSig (Normalized)Sig (Original)acetaminophen 325 mg oral tablet (1 source)Start: 83-82-5031580 mg, Oral, EVERY 4 HOURS PRN, Starting on Sat06/28/25 at 2033, Until Discontinued, Mild pain (score 1-3)acetaminophen 325 mg / oxyCODONE hydrochloride 5 mg oral tablet (5 sources)Opioid AgonistStart: 06-29-2025 End: 84-34-2707emfp 1 tablet by mouth every four hours as neededoxyCODONE- acetaminophen (Percocet) 5-325 MG tablet Take 1 tablet by mouth every 4 (four) hours if needed 07/02/2025 07/09/2025 ActiveamLODIPine 5 mg oral tablet (20 sources)Dihydropyridine Calcium Channel BlockerStart: 07-02-2025 End: 11-87-9630qngm 0.5 tablet by mouth once dailyamLODIPine (NORVASC) 5 mg tablet Indications: hypertension Take 0.5 tablets (2.5 mg total) by mouthdaily Hold for SBP 07/02/2025 08/01/2025 ActiveStart: 22-81-9805mllj 2.5 mg by mouth once daily2.5 mg, Oral, DAILY, First dose (after last modification) on Sat07/02/25 at 0900, Until DiscontinuedStart: 01-27-2024 End: 68-88-8055hjrz 5 mg by mouth once daily5 mg, Oral, DAILY, First dose on Sat06/29/25 at 0900, Until Discontinuedaspirin 81 mg chewable tablet (20 sources)Platelet Aggregation Inhibitor, Nonsteroidal Anti-inflammatory Drug Start: 08-02-2025 End: 46-96-8680exqf 1 tablet by mouth once dailyaspirin 81 mg chewable tablet Indications: myocardial infarction prevention Take 1 tablet (81 mg total) by mouth daily Restart after completion of full dose aspirin Indications: treatment to prevent a heart attack 08/02/2025 09/01/2025 ActiveStart: 07-02-2025 End: 46-21-1258coyb 1 tablet by mouth in the morningaspirin 325 MG tablet Take 325 mg by mouth in the morning and 325 mg before bedtime. 07/02/2025 08/01/2025 ActiveStart: 06-29-2025 End: 54-10-9728yyma 81 mg by mouth once daily81 mg, Oral, DAILY, First dose on Sat06/29/25 at 0900, Until Discontinuedaspirin 81 MG EC tablet 81 mg in the morning. Activeatorvastatin 40 mg oral tablet (20 sources)HMG-CoA Reductase InhibitorStart: 01-27-2024 End: 37-20-7016jpyn 1 tablet by mouth once dailyatorvastatin (Lipitor) 40 MG tablet Indications: Mixed hyperlipidemia Take 1 tablet (40 mg) by mouth Daily 90 tablet 1 01/28/2025 07/27/2025 Activeferrous sulfate 325 mg oral tablet (3 sources)Start: 07-02-2025 End: 27-50-0032irgh 1 tablet by mouth in the morningferrous sulfate 325 (65 Fe) MG tablet Take 325 mg by mouth in the morning. 07/02/2025 08/01/2025 Active lisinopril 40 mg oral tablet (20 sources)Angiotensin Converting Enzyme InhibitorStart: 07-02-2025 End: 78-57-2885rrrj 0.5 tablet by mouth once dailylisinopriL (ZESTRIL) 40 mg tablet Indications: hypertension Take 0.5 tablets (20 mg total) by mouthdaily Hold for SBP 07/02/2025 08/01/2025 ActiveStart: 10-78-8267mivz 10 mg by mouth once daily10 mg, Oral, DAILY, First dose (after last modification) on Sat07/02/25 at 0900, Until DiscontinuedStart: 01-27-2024 End: 73-18-3678vblr 40 mg by mouth once daily40 mg, Oral, DAILY, First dose on Sat06/29/25 at 0900, Until Discontinuedtake 1 tablet by mouth once daily lisinopril 20 MG tablet Take 20 mg by mouth Daily Hold if SBP Active methocarbamol 500 mg oral tablet (3 sources)Muscle RelaxantStart: 07-02-2025 End: 66-12-7080gcoq 1 tablet by mouth every eight hours as neededmethocarbamol (Robaxin) 500 MG tablet Take 500 mg by mouth every 8 (eight) hours if needed for muscle spasms 07/02/2025 07/12/2025 ActiveStart: 07-02-2025 End: 65-38-5453hrfu 1 tablet by mouth three times daily as needed for muscle spasmsmethocarbamoL (ROBAXIN) 500 mg tablet Take 1 tablet (500 mg total) by mouth 3 times a day as neededfor Muscle spasms 30 tablet 07/02/2025 07/12/2025 Activenabumetone 750 mg oral tablet (15 sources)Nonsteroidal Anti-inflammatory DrugStart: 09-10-3370yroc 2 tablets by mouth once dailynabumetone (Relafen) 750 MG tablet Indications: Arthritis of carpometacarpal (CMC) joint of right thumb TAKE 2 TABLETS BY MOUTH EVERY DAY 180 tablet 1 05/13/2025 ActiveStart: 14-97-0487odaw 2 tablets by mouth once daily nabumetone (Relafen) 750 MG tablet Indications: Arthritis of carpometacarpal (CMC) joint of right thumb TAKE 2 TABLETS BY MOUTH EVERY DAY 180 tablet 1 01/27/2024 Active End: 02-92-1492yheu 1 tablet by mouth in the morning, then take 1 tablet by mouth at bedtimenabumetone (RELAFEN) 750 mg tablet Take 1 tablet (750 mg total) by mouth in the morning and 1 tablet (750 mg total) before bedtime. 07/02/2025 Discontinued (Stop on Discharge)omeprazole 20 mg delayed release oral capsule (20 sources)Proton Pump InhibitorStart: 01-27-2024 End: 47-58-1494hsfb 1 capsule by mouth before mealtimeomeprazole (PriLOSEC) [address] capsule Indications: Gastroesophageal reflux disease without esophagitis Take 1 capsule (20 mg) by mouth in the morning. Take before meals. Do not crush or chew. 90 capsule 1 01/28/2025 07/27/2025 Activeondansetron (ZOFRAN) injection 4 mg (1 source)Start: 19-11-9124dzrtqsidnyf (ZOFRAN) injection 4 mgpolyethylene glycol 3350 22504 mg powder for oral solution (4 sources)Osmotic LaxativeStart: 07-02-2025 End: 62-72-9101bkcgyzvvahny glycol, PEG, 3350 (Miralax) 17 g packet Take 34 g by mouth 1 (one) time 07/02/2025 08/01/2025 ActiveStart: 07-02-2025 End: 51-97-0315xexshzvthkma glycol (MIRALAX) 17 gram packet Take 34 g by mouth daily as needed for Constipation 60each 07/02/2025 08/01/2025 ActiveStart: 89-01-477521 g, Oral, TWO TIMES DAILY, First dose on Sat07/01/25 at 1800, Until Discontinuedpotassium gluconate 2.6 meq oral tablet (14 sources)take 1 tablet by mouth once dailyPotassium Gluconate 2.5 MEQ tablet Take 1 tablet by mouth 1 (one) time each day. Activesodium chloride 0.154 meq/ml irrigation solution (2 sources)Start: 14-54-9808SZRKUTCPBM PRN, Starting on Sat06/29/25 at 1426, Intra-opStart: 06-28-2025 End: 54-34-5614vben 75 mL intravenously every hour75 mL/hr, Intravenous, CONTINUOUS, Starting on Sat06/28/25 at 2115 Completed/Discontinued Medications MedicationDrug Class(es)DatesSig (Normalized)Sig (Original)ceFAZolin 2000 mg injection (1 source)Cephalosporin AntibacterialStart: 06-29-2025 End: ,000 mg, Intravenous, Administer over 30 Minutes, EVERY 8 HOURS (3 times per day), First dose on Sat06/29/25 at 2100, Post-opdocusate sodium 100 mg oral capsule (1 source)Start: 53-39-9780lvdm 100 mg by mouth twice daily as kuhzhu885 mg, Oral, TWO TIMES DAILY PRN, Starting on Sat06/28/25 at 2033, Until Discontinued, Constipation0.4 ml enoxaparin sodium 100 mg/ml prefilled syringe (1 source)Low Molecular Weight HeparinStart: 85-66-6719cvkvod 40 mg by subcutaneous injection once daily40 mg, Subcutaneous, DAILY AT 0800, First dose on Sat06/30/25 at 0800, Until Discontinued1 ml fentaNYL 0.05 mg/ml injection (1 source)Opioid AgonistStart: 06-29-2025 End: mcg, Intravenous, EVERY 10 MIN PRN, 8 doses, Starting on Sat06/29/25 at 1525, Until Sat06/29/25 at 1652, Moderate pain (score 4-6), PACU1 ml ketorolac tromethamine 30 mg/ml injection (1 source)Nonsteroidal Anti-inflammatory Drug, Cyclooxygenase InhibitorStart: 06-28-2025 End: 92-47-629401 mg, Intravenous, EVERY 6 HOURS PRN, Starting on Sat06/28/25 at 2037, Until Sat06/29/25 at 2036, Severe pain (score 7-10)magnesium oxide 400 mg oral tablet (17 sources)Start: 32-52-4823rpmq 200 mg by mouth once uexei346 mg, Oral, DAILY, First dose on Sat06/29/25 at 0900, Until Discontinuedtake 1 tablet by mouth in the morningmagnesium oxide (Mag-Ox) 400 MG tablet Take 400 mg by mouth in the morning. Activetake 1 tablet by mouth once dailymagnesium oxide (MAG-OX) 250 mg magnesium Tab tablet Indications: hypomagnesemia Take 1 tablet (250mg total) by mouth daily Indications: low amount of magnesium in the blood Activemelatonin 3 mg oral tablet (1 source)Start: 56-15-9949vxua 3 mg by mouth once daily at bedtime as needed3 mg, Oral, NIGHTLY AT BEDTIME PRN, Starting on Sat06/28/25 at 2033, Until Discontinued, insomniapantoprazole 40 mg injection (1 source)Proton Pump InhibitorStart: 22-73-898706 mg, Intravenous, DAILY AT 0600, First dose on Sat06/28/25 at 2115, Until Discontinued Problems Active Problems Problem ClassificationProblemDateDocumented DateEpisodic/ChronicCardiac dysrhythmias (20 sources)Sick sinus syndrome; Translations: [Sick sinus syndrome]Onset: 982083-39-5416EvlfriuHeqdznc kidney disease (19 sources)Chronic kidney disease, stage 2 (mild); Translations: [Chronic kidney disease stage 2]Onset: 217215-01-4748JwhrqsvRadebsttsv disorders (14 sources)First degree atrioventricular block; Translations: [Atrioventricular block, first degree]Onset: 428383-22-9193YhgvxenDkgjvrhv atherosclerosis and other heart disease (16 sources)Coronary arteriosclerosis; Translations: [Atherosclerotic heart disease of [place] coronary artery without angina pectoris]Onset: 08-21-2021 51-10-4221AkbpoaxDkgszjlnt of lipid metabolism (20 sources)Mixed hyperlipidemia; Translations: [Mixed hyperlipidemia]Onset: 984932-72-7579AftvqoqC Codes: Fall (2 sources)Fall; Translations: [Unspecified fall, initial encounter]Onset: 354884-40-8847BupgoomgP Codes: Fall (3 sources)FallOnset: 954255-78-2079Igitojgppa disorders (19 sources)Gastroesophageal reflux disease without esophagitis; Translations: [Gastro-esophageal reflux disease without esophagitis]Onset: 02-26-2023 24-65-3028LfgemjrLiwvynhtd hypertension (20 sources)Essential hypertension; Translations: [Essential (primary) hypertension]Onset: 156563-97-5007HdooqjzOpxsj and electrolyte disorders (3 sources)Hyponatremia; Translations: [Hypo-osmolality and hyponatremia]Onset: 129159-95-0485NhsqblfqAttephmo of neck of femur (hip) (9 sources)Closed fracture of hip; Translations: [Closed intertrochanteric fracture of left femur]Onset: 499318-52-9697KozxgeelZasab valve disorders (20 sources)Aortic incompetence, non-rheumatic ; Translations: [Nonrheumatic aortic (valve) insufficiency]Onset: 309794-69-2241CyzwpeaAveyu valve disorders (2 sources)Cardiac murmur, unspecified; Translations: [Cardiac murmur, unspecified]Onset: 81-25-6701EqiieeguDeiuigiqtkt of prostate (14 sources)Benign prostatic hyperplasia; Translations: [Nodular prostate without lower urinary tract symptoms]Onset: hronic Hypertension with complications and secondary hypertension (20 sources)Hypertensive chronic kidney disease with stage 1 through stage 4 chronic kidney disease, or unspecified chronic kidney disease; Translations: [Hypertensive renal disease]Onset: 96-10-8809EilgyafSdwesogrfhdvcy (18 sources)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; Translations: [Unilateral primary osteoarthritis of first carpometacarpal joint, right hand]Onset: 322026-20-6398BlmdwuvQedon hereditary and degenerative nervous system conditions (14 sources)Essential tremor; Translations: [Essential tremor]Onset: 02-26-2023 78-91-2558CgkzrorSdbcl screening for suspected conditions (not mental disorders or infectious disease) (3 sources)Encounter for screening for lipoid disorders; Translations: [Patient encounter status]Onset: 926027-78-5044EfkozlyuQolsvgsvdy and visceral atherosclerosis (14 sources)Renal artery stenosis; Translations: [Atherosclerosis of renal artery]Onset: 967188-53-5031RzrobbaDzypeigdr heart disease (16 sources)Pulmonary hypertension; Translations: [Pulmonary hypertension, unspecified]Onset: 108872-52-8893JktrmdwUtundtsh codes; unclassified (14 sources)Dependence on enabling machine or device; Translations: [Dependence on other enabling machines and devices]Onset: hronic Residual codes; unclassified (14 sources)Obstructive sleep apnea syndrome; Translations: [Obstructive sleep apnea (adult) (pediatric)]Onset: 848509-17-2611DobehfuWjmokjub codes; unclassified (14 sources)Insomnia; Translations: [Other insomnia]Onset: ChronicResidual codes; unclassified (2 sources)Active advance directive (copy within chart) ; Translations: [Other specified health status]83-47-8153HzytijgvDeyeqvztk and history of mental health and substance abuse codes (2 sources)Patient encounter status; Translations: [Encounter for screening examination for other mental health and behavioral disorders]25-90-7664Czyuirck Past or Other Problems Problem ClassificationProblemDateDocumented DateEpisodic/ChronicCardiac dysrhythmias (20 sources)Bradycardia; Translations: [Bradycardia, unspecified]Onset: 06-26-2021 Resolved: 272856-53-2231AousgkysRkyobgka mellitus without complication (14 sources)Hyperglycemia; Translations: [Impaired fasting glucose]Onset: 02-26-2023 Resolved: 757555-39-1098VdqxbtbtPswrbqkjkxesm symptoms and ill-defined conditions (18 sources)Microalbuminuria; Translations: [Proteinuria, unspecified]Onset: 391397-72-3887VxgguzsmQbyo disorders (14 sources)Mood disordersOnset: 02-17-2024 Resolved: Other and unspecified benign neoplasm (14 sources)Polyp of colon; Translations: [Polyp of colon]Onset: 02-26-2023 31-29-6862XkduhjwmMfvim connective tissue disease (14 sources)Cramp in lower limb; Translations: [Sleep related leg cramps]Onset: 02-26-2023 Resolved: 508365-67-6841HyixskoFshmm nutritional; endocrine; and metabolic disorders (18 sources)Overweight; Translations: [Overweight]Onset: EpisodicUnclassified (1 source)Closed intertrochanteric fracture of left mctyh26-05-6036 Results Test NameValueInterpretationReference RangeFacilityBASIC METABOLIC PANELon 13-03-6212Wbhhn gap [Moles/Vol]5 mmol/LAbnormal03-31[facility] Comment on above:Order Comment: KDIGO 2012 GFR Categories Stage Description eGFR (mL/min/1.73m2) G1 Normal or high >=90 G2 Mildly decreased 60-89 G3a Mildly to moderately decreased 45-59 G3b Moderately to severely decreased 30-44 G4 Severely decreased 15-29 G5 Kidney Failure <15Performed By: #### [id number] #### [facility] [address] [place] [address] USACalcium [Mass/Vol]8.4 mg/dLAbnormal8.6-10.2KOhioHealth Marion General HospitalComment on above:Order Comment: KDIGO 2012 GFR Categories Stage Description eGFR (mL/min/1.73m2) G1 Normal or high >=90 G2 Mildly decreased 60-89 G3a Mildly to moderately decreased 45-59 G3b Moderately to severely decreased 30-44 G4 Severely decreased 15-29 G5 Kidney Failure <15Performed By: #### [id number] #### [facility] [address] [place] [address] USAChloride [Moles/Vol]101 mmol/FLvkkep66-450YzgtczkczAultman Orrville HospitalComment on above:Order Comment: KDIGO 2012 GFR Categories Stage Description eGFR (mL/min/1.73m2) G1 Normal or high >=90 G2 Mildly decreased 60-89 G3a Mildly to moderately decreased 45-59 G3b Moderately to severely decreased 30-44 G4 Severely decreased 15-29 G5 Kidney Failure <15Performed By: #### [id number] #### [facility] [address] [place] [address] USACO2 [Moles/Vol]25 mmol/ERbafqr65-27FogpbumebAultman Orrville HospitalComment on above:Order Comment: KDIGO 2012 GFR Categories Stage Description eGFR (mL/min/1.73m2) G1 Normal or high >=90 G2 Mildly decreased 60-89 G3a Mildly to moderately decreased 45-59 G3b Moderately to severely decreased 30-44 G4 Severely decreased 15-29 G5 Kidney Failure <15Performed By: #### [id number] #### [facility] [address] [place] [address] USACreatinine [Mass/Vol]1.03 mg/dLNormal0.7-1.3KOhioHealth Marion General HospitalComment on above:Order Comment: KDIGO 2012 GFR Categories Stage Description eGFR (mL/min/1.73m2) G1 Normal or high >=90 G2 Mildly decreased 60-89 G3a Mildly to moderately decreased 45-59 G3b Moderately to severely decreased 30-44 G4 Severely decreased 15-29 G5 Kidney Failure <15Performed By: #### [id number] #### [facility] [address] [place] [address] USAGFR/1.73 sq M.predicted among non-blacks MDRD (S/P/Bld) [Vol rate/Area]71 mL/min/{1.73_m2}Normal>90[facility] HospitalComment on above:Order Comment: KDIGO 2012 GFR Categories Stage Description eGFR (mL/min/1.73m2) G1 Normal or high >=90 G2 Mildly decreased 60-89 G3a Mildly to moderately decreased 45-59 G3b Moderately to severely decreased 30-44 G4 Severely decreased 15-29 G5 Kidney Failure <15Result Comment: Reported eGFR is based on the CKD-EPI 2021 equation that does not use a race coefficient.Performed By: #### [id number] #### [facility] [address] [place] [address] USAGlucose [Mass/Vol]100 mg/mFSumixw22-041RddonqjlgAultman Orrville HospitalComment on above:Order Comment: KDIGO 2012 GFR Categories Stage Description eGFR (mL/min/1.73m2) G1 Normal or high >=90 G2 Mildly decreased 60-89 G3a Mildly to moderately decreased 45-59 G3b Moderately to severely decreased 30-44 G4 Severely decreased 15-29 G5 Kidney Failure <15Performed By: #### [id number] #### [facility] [address] [place] [address] USAPotassium [Moles/Vol]4.7 mmol/LNormal3.5-5.1KOhioHealth Marion General HospitalComment on above:Order Comment: KDIGO 2012 GFR Categories Stage Description eGFR (mL/min/1.73m2) G1 Normal or high >=90 G2 Mildly decreased 60-89 G3a Mildly to moderately decreased 45-59 G3b Moderately to severely decreased 30-44 G4 Severely decreased 15-29 G5 Kidney Failure <15Performed By: #### [id number] #### [facility] [address] [place] [address] USASodium [Moles/Vol]131 mmol/GKzzyoqqf769-752Dmuzizsnd Health NetworkComment on above:Order Comment: KDIGO 2012 GFR Categories Stage Description eGFR (mL/min/1.73m2) G1 Normal or high >=90 G2 Mildly decreased 60-89 G3a Mildly to moderately decreased 45-59 G3b Moderately to severely decreased 30-44 G4 Severely decreased 15-29 G5 Kidney Failure <15Performed By: #### [id number] #### [facility] [address] [place] [address] USAUrea nitrogen [Mass/Vol]17 mg/dLNormal7-25[facility] HospitalComment on above:Order Comment: KDIGO 2012 GFR Categories Stage Description eGFR (mL/min/1.73m2) G1 Normal or high >=90 G2 Mildly decreased 60-89 G3a Mildly to moderately decreased 45-59 G3b Moderately to severely decreased 30-44 G4 Severely decreased 15-29 G5 Kidney Failure <15Performed By: #### [id number] #### [facility] [address] [place] [address] USABasic Metabolic Panelon 59-85-1628Dbuqn gap 4 (S/P/Bld) [Moles/Vol]5 mmol/LAbnormal7 - 16 mmol/LKettering HealthCalcium (Bld) [Mass/Vol] 8.4 mg/dLAbnormal8.6 - 10.2 mg/dLMedina HospitalChloride (S/P/Bld) [Moles/Vol] 101 mmol/L98 - 107 mmol/LKettecraig hospital HealthCO2 (S/P/Bld) [Moles/Vol]25 mmol/L21 - 31 mmol/LKettering HealthCreatinine [Mass/Vol]1.03 mg/dL0.70 - 1.30 mg/dL Medina HospitalGFR Male71- PINFMedina HospitalComment on above:Reported eGFR is based on the CKD-EPI 2020 equation that does not use a race coefficient. Glucose [Mass/Vol]100 mg/dL74 - 109 mg/dLMedina HospitalInterpretation and review of laboratory resultsAbnormalKettering HealthPotassium (S/P/Bld) [Moles/Vol]4.7 mmol/L3.5 - 5.1 mmol/LKettering HealthSodium (S/P/Bld) [Moles/Vol]131 mmol/MXkjhslyf143 - 145 mmol/LKettering HealthUrea nitrogen [Mass/Vol]17 mg/dL7 - 25 mg/dLMedina Hospital KDIGO 2012 GFR Categories Stage Description eGFR (mL/min/1.73m2) G1 Normal or high >=90 G2 Mildly decreased 60-89 G3a Mildly to moderately decreased 45-59 G3b Moderately to severely decreased 30-44 G4 Severely decreased 15-29 G5 Kidney Failure <15[facility] HospitalCBC W/DIFFon 07-02-2025 Basophils (Bld) [#/Vol]0.1 10*3/uL0.0 - 0.1 K/uLMedina HospitalBasophils/100 WBC (Bld)1.3 %[facility]ina HospitalEosinophils (Bld) [#/Vol]0.5 10*3/uLAbnormal0.0 - 0.4 K/uLMedina HospitalEosinophils/100 WBC (Bld)7.3 %[facility] Erythrocyte distribution width (RBC) [Ratio]13.3 %11.7 - 15.2 %[facility] Hematocrit (Bld) [Volume fraction]23.4 %Yrosvjpy25.0 - 51.5 %[facility] Hemoglobin (Bld) [Mass/Vol]8.4 g/aHUatbhevp91.1 - 17.6 g/dLMedina Hospital Interpretation and review of laboratory resultsAbSouthview Medical Center Lymphocytes (Bld) [#/Vol]1.1 10*3/uL0.8 - 3.6 K/uLMedina Hospital Lymphocytes/100 WBC (Bld)15.3 %[facility] HospitalH (RBC) [Entitic mass]34.3 pg Wxuocmri91.4 - 33.4 pgWVUMedicine Barnesville HospitalHC (RBC) [Mass/Vol]35.7 g/dL31.1 - 37.0 g/dLWVUMedicine Barnesville HospitalV (RBC) [Entitic vol]96.1 fL85.0 - 99.0 flMedina Hospital Monocytes (Bld) [#/Vol]0.7 10*3/uL0.3 - 0.9 K/uLMedina HospitalMonocytes/100 WBC (Bld)9.9 %[facility]ina HospitalNeutrophils (Bld) [#/Vol]4.9 10*3/uL2.0 - 7.3 K/uL [facility]ina HospitalNeutrophils/100 WBC (Bld)66.2 %[facility]ina HospitalPlatelets (Bld) [#/Vol]248 10*3/uL154 - 393 K/uLKettering HealthRBC (Bld) [#/Vol]2.44 10*6/uL AbnormalMedina HospitalWBC (Bld) [#/Vol]7.4 10*3/uL4.0 - 10.5 K/uLMercy Health St[facility] HealthBASOPHILS ABS AUTO0.1 K/uLNormal0.0-0.1KOhioHealth Marion General HospitalComment on above:Performed By: #### [id number] #### [facility] [address] [place] [address] USABasophils/100 WBC (Bld)1.3 %NormalAultman Orrville Hospital Comment on above:Performed By: #### [id number] #### [facility] [address] [place] [address] USAEosinophils (Bld) [#/Vol]0.5 10*3/uLAbnormal0.0-0.4 [facility] HospitalComment on above:Performed By: #### [id number] #### [facility] [address] [place] [address] USAEosinophils/100 WBC (Bld)7.3 %NormalAultman Orrville HospitalComment on above:Performed By: #### [id number] #### [facility] [address] [place] [address] USAErythrocyte distribution width (RBC) [Ratio]13.3 %Normal 11.7-15.2KOhioHealth Marion General HospitalComment on above:Performed By: #### [id number] #### [facility] [address] [place] [address] USAHematocrit (Bld) [Volume fraction]23.4 %Yzkfzljr45.0-51.5 [facility] HospitalComment on above:Performed By: #### [id number] #### [facility] [address] [place], [place] [address] USAHemoglobin (Bld) [Mass/Vol]8.4 g/aZFevduqip95.1-17.6 [facility] HospitalComment on above:Performed By: #### [id number] #### [facility] [address] [place] [address] USALymphocytes (Bld) [#/Vol]1.1 10*3/uLNormal0.8-3.6[facility] HospitalComment on above:Performed By: #### [id number] #### [facility] [address] [place] [address] USALymphocytes/100 WBC (Bld)15.3 %[facility]tering Health HamiltonComment on above:Performed By: #### [id number] #### [facility] [address] [place] [address] USAMCH (RBC) [Entitic mass]34.3 bsCeoekuan19.4-33.4[facility] HospitalComment on above:Performed By: #### [id number] #### [facility] [address] [place] [address] USAMCHC (RBC) [Mass/Vol]35.7 g/eSYacayg49.1-37.0A[facility] Orrville HospitalComment on above:Performed By: #### [id number] #### [facility] [address] [place] [address] USAMCV (RBC) [Entitic vol]96.1 qBVyxppm26.0-99.0A[facility] Orrville HospitalComment on above:Performed By: #### [id number] #### [facility] [address] [place] [address] USAMonocytes (Bld) [#/Vol]0.7 10*3/uLNormal0.3-0.9[facility] Orrville HospitalComment on above:Performed By: #### [id number] #### [facility] [address] [place] [address] USAMonocytes/100 WBC (Bld)9.9 %[facility] Comment on above:Performed By: #### [id number] #### [facility] [address] [place] [address] USANEUTROPHIL ABS AUTO4.9 K/uLNormal2.0-7.3KOhioHealth Marion General HospitalComment on above:Performed By: #### [id number] #### [facility] [address] [place] [address] USANeutrophils/100 WBC (Bld)66.2 %[facility] HamiltonComment on above:Performed By: #### [id number] #### [facility] [address] [place] [address] USAPlatelets (Bld) [#/Vol]248 10*3/pSRaspdh174-746Jtzptpglx Health NetworkComment on above:Performed By: #### [id number] #### [facility] [address] [place] [address] USARBC (Bld) [#/Vol]2.44 10*6/uLAbnormal4.30-5.86[facility] Orrville HospitalComment on above:Performed By: #### [id number] #### [facility] [address] [place] [address] USAWBC (Bld) [#/Vol]7.4 10*3/uLNormal4.0-10.5[facility] Orrville HospitalComment on above:Performed By: #### [id number] #### [facility] [address] [place] [address] USABASIC METABOLIC PANELon 70-07-4507Lyuzk gap [Moles/Vol]5 mmol/LAbnormal7-16[facility] HospitalComment on above:Order Comment: KDIGO 2012 GFR Categories Stage Description eGFR (mL/min/1.73m2) G1 Normal or high >=90 G2 Mildly decreased 60-89 G3a Mildly to moderately decreased 45-59 G3b Moderately to severely decreased 30-44 G4 Severely decreased 15-29 G5 Kidney Failure <15Performed By: #### [id number] #### [facility] [address] [place] [address] USACalcium [Mass/Vol]8.0 mg/dLAbnormal8.6-10.2KOhioHealth Marion General HospitalComment on above:Order Comment: KDIGO 2012 GFR Categories Stage Description eGFR (mL/min/1.73m2) G1 Normal or high >=90 G2 Mildly decreased 60-89 G3a Mildly to moderately decreased 45-59 G3b Moderately to severely decreased 30-44 G4 Severely decreased 15-29 G5 Kidney Failure <15Performed By: #### [id number] #### [facility] [address] [place] [address] USAChloride [Moles/Vol]102 mmol/WZzqrga01-619CkqcgnjioAultman Orrville HospitalComment on above:Order Comment: KDIGO 2012 GFR Categories Stage Description eGFR (mL/min/1.73m2) G1 Normal or high >=90 G2 Mildly decreased 60-89 G3a Mildly to moderately decreased 45-59 G3b Moderately to severely decreased 30-44 G4 Severely decreased 15-29 G5 Kidney Failure <15Performed By: #### [id number] #### [facility] [address] [place] [address] USACO2 [Moles/Vol]24 mmol/LOprwua22-32TkajlrlxlAultman Orrville HospitalComment on above:Order Comment: KDIGO 2012 GFR Categories Stage Description eGFR (mL/min/1.73m2) G1 Normal or high >=90 G2 Mildly decreased 60-89 G3a Mildly to moderately decreased 45-59 G3b Moderately to severely decreased 30-44 G4 Severely decreased 15-29 G5 Kidney Failure <15Performed By: #### [id number] #### [facility] [address] [place] [address] USACreatinine [Mass/Vol]1.25 mg/dLNormal0.7-1.3KOhioHealth Marion General HospitalComment on above:Order Comment: KDIGO 2012 GFR Categories Stage Description eGFR (mL/min/1.73m2) G1 Normal or high >=90 G2 Mildly decreased 60-89 G3a Mildly to moderately decreased 45-59 G3b Moderately to severely decreased 30-44 G4 Severely decreased 15-29 G5 Kidney Failure <15Performed By: #### [id number] #### [facility] [address] [place] [address] USAGFR/1.73 sq M.predicted among non-blacks MDRD (S/P/Bld) [Vol rate/Area]56 mL/min/{1.73_m2}Normal>90A[facility] Orrville HospitalComment on above:Order Comment: KDIGO 2012 GFR Categories Stage Description eGFR (mL/min/1.73m2) G1 Normal or high >=90 G2 Mildly decreased 60-89 G3a Mildly to moderately decreased 45-59 G3b Moderately to severely decreased 30-44 G4 Severely decreased 15-29 G5 Kidney Failure <15Result Comment: Reported eGFR is based on the CKD-EPI 2020 equation that does not use a race coefficient.Performed By: #### [id number] #### [facility] [address] [place] [address] USAGlucose [Mass/Vol]95 mg/tFMovtov11-960EerwsacmhAultman Orrville HospitalComment on above:Order Comment: KDIGO 2012 GFR Categories Stage Description eGFR (mL/min/1.73m2) G1 Normal or high >=90 G2 Mildly decreased 60-89 G3a Mildly to moderately decreased 45-59 G3b Moderately to severely decreased 30-44 G4 Severely decreased 15-29 G5 Kidney Failure <15Performed By: #### [id number] #### [facility] [address] [place] [address] USAPotassium [Moles/Vol]4.5 mmol/LNormal3.5-5.1KOhioHealth Marion General HospitalComment on above:Order Comment: KDIGO 2012 GFR Categories Stage Description eGFR (mL/min/1.73m2) G1 Normal or high >=90 G2 Mildly decreased 60-89 G3a Mildly to moderately decreased 45-59 G3b Moderately to severely decreased 30-44 G4 Severely decreased 15-29 G5 Kidney Failure <15Performed By: #### [id number] #### [facility] [address] [place] [address] USASodium [Moles/Vol]131 mmol/HKetyfrsu155-011Gazqtvbua Health NetworkComment on above:Order Comment: KDIGO 2012 GFR Categories Stage Description eGFR (mL/min/1.73m2) G1 Normal or high >=90 G2 Mildly decreased 60-89 G3a Mildly to moderately decreased 45-59 G3b Moderately to severely decreased 30-44 G4 Severely decreased 15-29 G5 Kidney Failure <15Performed By: #### [id number] #### [facility] [address] [place] [address] USAUrea nitrogen [Mass/Vol]19 mg/dLNormal7-25[facility] HospitalComment on above:Order Comment: KDIGO 2012 GFR Categories Stage Description eGFR (mL/min/1.73m2) G1 Normal or high >=90 G2 Mildly decreased 60-89 G3a Mildly to moderately decreased 45-59 G3b Moderately to severely decreased 30-44 G4 Severely decreased 15-29 G5 Kidney Failure <15Performed By: #### [id number] #### [facility] [address] [place] [address] USABasic Metabolic Panelon 64-54-0669Fposq gap 4 (S/P/Bld) [Moles/Vol]5 mmol/LAbnormal7 - 16 mmol/LKettering HealthCalcium (Bld) [Mass/Vol] 8.0 mg/dLAbnormal8.6 - 10.2 mg/dLMedina HospitalChloride (S/P/Bld) [Moles/Vol] 102 mmol/L98 - 107 mmol/LKregency hospital cleveland east HealthCO2 (S/P/Bld) [Moles/Vol]24 mmol/L21 - 31 mmol/LKettering HealthCreatinine [Mass/Vol]1.25 mg/dL0.70 - 1.30 mg/dL Medina HospitalGFR Male56- PINFMedina HospitalComment on above:Reported eGFR is based on the CKD-EPI 2020 equation that does not use a race coefficient. Glucose [Mass/Vol]95 mg/dL74 - 109 mg/dLMedina HospitalInterpretation and review of laboratory resultsAbnormalKregency hospital cleveland east HealthPotassium (S/P/Bld) [Moles/Vol]4.5 mmol/L3.5 - 5.1 mmol/LKregency hospital clevel[facility] east HealthSodium (S/P/Bld) [Moles/Vol]131 mmol/VYjvoxxkb069 - 145 mmol/LKdecatur health systemsring HealthUrea nitrogen [Mass/Vol]19 mg/dL7 - 25 mg/dLMedina Hospital KDIGO 2012 GFR Categories Stage Description eGFR (mL/min/1.73m2) G1 Normal or high >=90 G2 Mildly decreased 60-89 G3a Mildly to moderately decreased 45-59 G3b Moderately to severely decreased 30-44 G4 Severely decreased 15-29 G5 Kidney Failure <15[facility] W/DIFFon 07-01-2025 Basophils (Bld) [#/Vol]0.1 10*3/uL0.0 - 0.1 K/uLMedina HospitalBasophils/100 WBC (Bld)0.7 %Medina HospitalEosinophils (Bld) [#/Vol]0.2 10*3/uL0.0 - 0.4 K/uL [facility] HospitalEosinophils/100 WBC (Bld)3.0 %[facility]ina HospitalErythrocyte distribution width (RBC) [Ratio]13.1 %11.7 - 15.2 %[facility] HospitalHematocrit (Bld) [Volume fraction]23.1 %Ouaivxmc62.0 - 51.5 %[facility] HospitalHemoglobin (Bld) [Mass/Vol]8.0 g/pNOworseyp82.1 - 17.6 g/dLMedina HospitalInterpretation and review of laboratory resultsAbnormalKMercy Health Perrysburg HospitalLymphocytes (Bld) [#/Vol]1.3 10*3/uL0.8 - 3.6 K/uLMedina HospitalLymphocytes/100 WBC (Bld)17.7 % [facility] HospitalH (RBC) [Entitic mass]33.6 bwJqcmugfb27.4 - 33.4 pgWVUMedicine Barnesville HospitalHC (RBC) [Mass/Vol]34.5 g/dL31.1 - 37.0 g/dLWVUMedicine Barnesville HospitalV (RBC) [Entitic vol]97.4 fL85.0 - 99.0 flMedina HospitalMonocytes (Bld) [#/Vol]0.8 10*3/uL0.3 - 0.9 K/[facility] Medical CenterMonocytes/100 WBC (Bld)10.2 %Medina HospitalNeutrophils (Bld) [#/Vol]5.0 10*3/uL2.0 - 7.3 K/uLMedina Hospital Neutrophils/100 WBC (Bld)68.4 %[facility]ina HospitalPlatelets (Bld) [#/Vol]218 10*3/uL154 - 393 K/uLMedina HospitalRBC (Bld) [#/Vol]2.37 10*6/uLAbnormal Medina HospitalWBC (Bld) [#/Vol]7.4 10*3/uL4.0 - 10.5 K/[facility] HealthBASOPHILS ABS AUTO0.1 K/uLNormal0.0-0.1KOhioHealth Marion General Hospital Comment on above:Performed By: #### [id number] ####[facility] [id number] [place] [address] USABasophils/100 WBC (Bld)0.7 %NormalAultman Orrville HospitalComment on above:Performed By: #### [id number] ####[facility] [id number] [place] [address] USAEosinophils (Bld) [#/Vol]0.2 10*3/uLNormal0.0-0.4[facility] HospitalComment on above:Performed By: #### [id number] ####[facility] [id number] [place] [address] [place] Eosinophils/100 WBC (Bld)3.0 %NormalAultman Orrville HospitalComment on above: Performed By: #### [id number] ####[address] [place] [address] USAErythrocyte distribution width (RBC) [Ratio]13.1 % Ivumps22.7-15.2KOhioHealth Marion General HospitalComment on above:Performed By: #### [id number] ####[address] [address] [place] Hematocrit (Bld) [Volume fraction]23.1 %Ighavnkb67.0-51.5A[facility] Orrville HospitalComment on above:Performed By: #### [id number] ####[address] [address] USAHemoglobin (Bld) [Mass/Vol]8.0 g/dL Vezdxxqk81.1-17.6[facility] Orr[facility] HospitalComment on above:Performed By: #### [id number] ####[address] [address] [place] Lymphocytes (Bld) [#/Vol]1.3 10*3/uLNormal0.8-3.6[facility] Orr[facility] HospitalComment on above:Performed By: #### [id number] ####[address] [address] USALymphocytes/100 WBC (Bld)17.7 %NormalAultman Orrville HospitalComment on above:Performed By: #### [id number] ####[address] [place] [address] USAMCH (RBC) [Entitic mass]33.6 pkCrpxxptj37.4-33.4[facility] HospitalComment on above:Performed By: #### [id number] ####[facility] [id number] [place] [address] [place] [address] [place] MCHC (RBC) [Mass/Vol]34.5 g/eIPysaxu74.1-37.0[facility] HospitalComment on above:Performed By: #### [id number] ####[address] [address] USAMCV (RBC) [Entitic vol]97.4 lLCnfwuv47.0-99.0 [facility] HospitalComment on above:Performed By: #### [id number] ####[address] [address] USAMonocytes (Bld) [#/Vol] 0.8 10*3/uLNormal0.3-0.9[facility] HospitalComment on above:Performed By: #### [id number] ####[place] [address] USAMonocytes/100 WBC (Bld)10.2 %[facility] HamiltonComment on above: Performed By: #### [id number] ####[place] [address] USANEUTROPHIL ABS AUTO5.0 K/uLNormal2.0-7.3KOhioHealth Marion General HospitalComment on above:Performed By: #### [id number] ####[place] [address] USANeutrophils/100 WBC (Bld)68.4 %[facility] HamiltonComment on above:Performed By: #### [id number] ####[address] [address] USAPlatelets (Bld) [#/Vol]218 10*3/hHIwqotg988-488Mmojocsax Health NetworkComment on above: Performed By: #### [id number] ####[address] [address] USARBC (Bld) [#/Vol]2.37 10*6/uLAbnormal4.30-5.86 [facility] HospitalComment on above:Performed By: #### [id number] ####[address] [address] USAWBC (Bld) [#/Vol]7.4 10*3/uLNormal4.0-10.5[facility] Orr[facility] HospitalComment on above:Performed By: #### [id number] ####[facility] [address] [place] [address] [place] BASIC METABOLIC PANELon 51-57-5558Efeml gap [Moles/Vol]5 mmol/LAbnormal7-16 [facility] HospitalComment on above:Order Comment: KDIGO 2012 GFR Categories Stage Description eGFR (mL/min/1.73m2) G1 Normal or high >=90 G2 Mildly decreased 60-89 G3a Mildly to moderately decreased 45-59 G3b Moderately to severely decreased 30-44 G4 Severely decreased 15-29 G5 Kidney Failure <15 Release to patient->ImmediatePerformed By: #### [id number] #### [facility] [address] [place] [address] USACalcium [Mass/Vol]8.0 mg/dLAbnormal8.6-10.2KOhioHealth Marion General HospitalComment on above:Order Comment: KDIGO 2012 GFR Categories Stage Description eGFR (mL/min/1.73m2) G1 Normal or high >=90 G2 Mildly decreased 60-89 G3a Mildly to moderately decreased 45-59 G3b Moderately to severely decreased 30-44 G4 Severely decreased 15-29 G5 Kidney Failure <15 Release to patient->ImmediatePerformed By: #### [id number] #### [facility] [address] [place] [address] USAChloride [Moles/Vol]100 mmol/HEswcar88-596QahsfpfucAultman Orrville HospitalComment on above:Order Comment: KDIGO 2012 GFR Categories Stage Description eGFR (mL/min/1.73m2) G1 Normal or high >=90 G2 Mildly decreased 60-89 G3a Mildly to moderately decreased 45-59 G3b Moderately to severely decreased 30-44 G4 Severely decreased 15-29 G5 Kidney Failure <15 Release to patient->ImmediatePerformed By: #### [id number] #### [facility] [address] [place] [address] USACO2 [Moles/Vol]24 mmol/SWtfknf14-17MbuzdwnfjAultman Orrville HospitalComment on above:Order Comment: KDIGO 2012 GFR Categories Stage Description eGFR (mL/min/1.73m2) G1 Normal or high >=90 G2 Mildly decreased 60-89 G3a Mildly to moderately decreased 45-59 G3b Moderately to severely decreased 30-44 G4 Severely decreased 15-29 G5 Kidney Failure <15 Release to patient->ImmediatePerformed By: #### [id number] #### [facility] [address] [place] [address] USACreatinine [Mass/Vol]1.48 mg/dLAbnormal0.7-1.3KOhioHealth Marion General HospitalComment on above:Order Comment: KDIGO 2012 GFR Categories Stage Description eGFR (mL/min/1.73m2) G1 Normal or high >=90 G2 Mildly decreased 60-89 G3a Mildly to moderately decreased 45-59 G3b Moderately to severely decreased 30-44 G4 Severely decreased 15-29 G5 Kidney Failure <15 Release to patient->ImmediatePerformed By: #### [id number] #### [facility] [address] [place] [address] USAGFR/1.73 sq M.predicted among non-blacks MDRD (S/P/Bld) [Vol rate/Area]46 mL/min/{1.73_m2}Normal>90A[facility] Orrville HospitalComment on above:Order Comment: KDIGO 2012 GFR Categories Stage Description eGFR (mL/min/1.73m2) G1 Normal or high >=90 G2 Mildly decreased 60-89 G3a Mildly to moderately decreased 45-59 G3b Moderately to severely decreased 30-44 G4 Severely decreased 15-29 G5 Kidney Failure <15 Release to patient->ImmediateResult Comment: Reported eGFR is based on the CKD- EPI 2021 equation that does not use a race coefficient.Performed By: #### [id number] #### [facility] [address] [place] [address] USAGlucose [Mass/Vol]99 mg/pQUadzlo51-356VersuuyyrAultman Orrville HospitalComment on above:Order Comment: KDIGO 2012 GFR Categories Stage Description eGFR (mL/min/1.73m2) G1 Normal or high >=90 G2 Mildly decreased 60-89 G3a Mildly to moderately decreased 45-59 G3b Moderately to severely decreased 30-44 G4 Severely decreased 15-29 G5 Kidney Failure <15 Release to patient->ImmediatePerformed By: #### [id number] #### [facility] [address] [place] [address] USAPotassium [Moles/Vol]4.6 mmol/LNormal3.5-5.1KOhioHealth Marion General HospitalComment on above:Order Comment: KDIGO 2012 GFR Categories Stage Description eGFR (mL/min/1.73m2) G1 Normal or high >=90 G2 Mildly decreased 60-89 G3a Mildly to moderately decreased 45-59 G3b Moderately to severely decreased 30-44 G4 Severely decreased 15-29 G5 Kidney Failure <15 Release to patient->ImmediatePerformed By: #### [id number] #### [facility] [address] [place] [address] USASodium [Moles/Vol]129 mmol/YZqijcrwj937-316Sshcvgxyo Health NetworkComment on above:Order Comment: KDIGO 2012 GFR Categories Stage Description eGFR (mL/min/1.73m2) G1 Normal or high >=90 G2 Mildly decreased 60-89 G3a Mildly to moderately decreased 45-59 G3b Moderately to severely decreased 30-44 G4 Severely decreased 15-29 G5 Kidney Failure <15 Release to patient->ImmediatePerformed By: #### [id number] #### [facility] [address] [place] [address] USAUrea nitrogen [Mass/Vol]16 mg/dLNormal7-25[facility] HospitalComment on above:Order Comment: KDIGO 2012 GFR Categories Stage Description eGFR (mL/min/1.73m2) G1 Normal or high >=90 G2 Mildly decreased 60-89 G3a Mildly to moderately decreased 45-59 G3b Moderately to severely decreased 30-44 G4 Severely decreased 15-29 G5 Kidney Failure <15 Release to patient->ImmediatePerformed By: #### [id number] #### [facility] [address] [place] [address] USABasic Metabolic PanelOrdered By: Background Lab on 53-77-1807Vejxg gap 4 (S/P/Bld) [Moles/Vol]5 mmol/LAbnormal7 - 16 mmol/L [facility] HealthCalcium (Bld) [Mass/Vol]8.0 mg/dLAbnormal8.6 - 10.2 mg/dL [facility] HealthChloride (S/P/Bld) [Moles/Vol]100 mmol/L98 - 107 mmol/LKMercy Health Perrysburg HospitalCO2 (S/P/Bld) [Moles/Vol]24 mmol/L21 - 31 mmol/[facility] Creatinine [Mass/Vol]1.48 mg/dLAbnormal0.70 - 1.30 mg/dLMedina HospitalGFR Male 46- PINFMedina HospitalComment on above:Reported eGFR is based on the CKD-EPI 2020 equation that does not use a race coefficient.Glucose [Mass/Vol]99 mg/dL74 - 109 mg/dLMedina HospitalInterpretation and review of laboratory results AbnormalMedina HospitalPotassium (S/P/Bld) [Moles/Vol]4.6 mmol/L3.5 - 5.1 mmol/LKMercy Health Perrysburg HospitalSodium (S/P/Bld) [Moles/Vol]129 mmol/WTxlonwla822 - 145 mmol/[facility] HospitalUrea nitrogen [Mass/Vol]16 mg/dL7 - 25 mg/dLMedina Hospital KDIGO 2012 GFR Categories Stage Description eGFR (mL/min/1.73m2) G1 Normal or high >=90 G2 Mildly decreased 60-89 G3a Mildly to moderately decreased 45-59 G3b Moderately to severely decreased 30-44 G4 Severely decreased 15-29 G5 Kidney Failure <15[facility] W/DIFFon 06-29-2025 BASOPHILS ABS AUTO0.1 K/uLNormal0.0-0.1KOhioHealth Marion General HospitalComment on above: Order Comment: Release to patient->ImmediatePerformed By: #### [id number] #### [facility] [address] [place] [address] USABasophils/100 WBC (Bld)0.8 %NormalAultman Orrville Hospital Comment on above:Order Comment: Release to patient->ImmediatePerformed By: #### [id number] #### [facility] [address] [place] [address] USAEosinophils (Bld) [#/Vol]0.2 10*3/uLNormal0.0-0.4[facility] HospitalComment on above:Order Comment: Release to patient->Immediate Performed By: #### [id number] #### [facility] [address] [place] [address] USAEosinophils/100 WBC (Bld)1.6 %NormalLicking Memorial Hospitalment on above:Order Comment: Release to patient->ImmediatePerformed By: #### [id number] #### [facility] [address] [place] [address] USAErythrocyte distribution width (RBC) [Ratio]13.3 %Normal 11.7-15.2KOhioHealth Marion General HospitalComment on above:Order Comment: Release to patient->ImmediatePerformed By: #### [id number] #### [facility] [address] [place] [address] USAHematocrit (Bld) [Volume fraction]31.2 %Knuervnh79.0-51.5 [facility] on above:Order Comment: Release to patient->ImmediatePerformed By: #### [id number] #### [facility] [address] [place] [address] USAHemoglobin (Bld) [Mass/Vol]10.7 g/eZZslsaoeq61.1-17.6 [facility] HospitalComscheurer hospital on above:Order Comment: Release to patient->ImmediatePerformed By: #### [id number] #### [facility] [address] [place] [address] USALymphocytes (Bld) [#/Vol]1.2 10*3/uLNormal0.8-3.6[facility] on above:Order Comment: Release to patient->Immediate Performed By: #### [id number] #### [facility] [address] [place] [address] USALymphocytes/100 WBC (Bld)12.5 %NormalOhio State University [facility] on above:Order Comment: Release to patient->ImmediatePerformed By: #### [id number] #### [facility] [address] [place], [place] [address] USAMCH (RBC) [Entitic mass]33.4 qhVmvdye71.4-33.4[facility] on above:Order Comment: Release to patient->Immediate Performed By: #### [id number] #### [facility] [address] [place] [address] USAMCHC (RBC) [Mass/Vol]34.2 g/zVTnneuo77.1-37.0[facility] HospitalComment on above:Order Comment: Release to patient->Immediate Performed By: #### [id number] #### [facility] [address] [place] [address] USAMCV (RBC) [Entitic vol]97.7 qMTbielf36.0-99.0[facility] HospitalComment on above:Order Comment: Release to patient->Immediate Performed By: #### [id number] #### [facility] [address] [place] [address] USAMonocytes (Bld) [#/Vol]0.8 10*3/uLNormal0.3-0.9[facility] HospitalComment on above:Order Comment: Release to patient->Immediate Performed By: #### [id number] #### [facility] [address] [place] [address] USAMonocytes/100 WBC (Bld)7.8 %[facility] Comment on above:Order Comment: Release to patient->ImmediatePerformed By: #### [id number] #### [facility] [address] [place] [address] USANEUTROPHIL ABS AUTO7.5 K/uLAbnormal2.0-7.3KOhioHealth Marion General HospitalComment on above:Order Comment: Release to patient->ImmediatePerformed By: #### [id number] #### [facility] [address] [place] [address] USANeutrophils/100 WBC (Bld)77.3 %[facility] HamiltonComment on above:Order Comment: Release to patient->ImmediatePerformed By: #### [id number] #### [facility] [address] [place] [address] USAPlatelets (Bld) [#/Vol]264 10*3/gNPxpheh456-448Tthxsrnlt Health NetworkComment on above:Order Comment: Release to patient->Immediate Performed By: #### [id number] #### [facility] [address] [place] [address] USARBC (Bld) [#/Vol]3.20 10*6/uLAbnormal4.30-5.86[facility] HospitalComment on above:Order Comment: Release to patient->Immediate Performed By: #### [id number] #### [facility] [address] [place] [address] USAWBC (Bld) [#/Vol]9.7 10*3/uLNormal4.0-10.5[facility] HospitalComment on above:Order Comment: Release to patient->ImmediatePerformed By: #### [id number] #### [facility] [address] [place] [address] USACBC w/ Diff-Complete Blood Counton 31-02-4270Wtlpaqcnd (Bld) [#/Vol]0.1 10*3/uL0.0 - 0.1 K/uLMedina HospitalBasophils/100 WBC (Bld)0.8 %[facility]ina HospitalEosinophils (Bld) [#/Vol]0.2 10*3/uL0.0 - 0.4 K/uLMedina HospitalEosinophils/100 WBC (Bld)1.6 %[facility]ina HospitalErythrocyte distribution width (RBC) [Ratio]13.3 %11.7 - 15.2 %[facility] HospitalHematocrit (Bld) [Volume fraction]31.2 %Lbdywpzh49.0 - 51.5 %[facility] HospitalHemoglobin (Bld) [Mass/Vol] 10.7 g/zOMphvldtr87.1 - 17.6 g/dLMedina HospitalInterpretation and review of laboratory resultsAbnormalKMercy Health Perrysburg HospitalLymphocytes (Bld) [#/Vol]1.2 10*3/uL 0.8 - 3.6 K/uLMedina HospitalLymphocytes/100 WBC (Bld)12.5 %[facility] HospitalH (RBC) [Entitic mass]33.4 pg28.4 - 33.4 pgWVUMedicine Barnesville HospitalHC (RBC) [Mass/Vol] 34.2 g/dL31.1 - 37.0 g/dLWVUMedicine Barnesville HospitalV (RBC) [Entitic vol]97.7 fL85.0 - 99.0 flMedina HospitalMonocytes (Bld) [#/Vol]0.8 10*3/uL0.3 - 0.9 K/uLMedina HospitalMonocytes/100 WBC (Bld)7.8 %[facility] HospitalNeutrophils (Bld) [#/Vol]7.5 10*3/uLAbnormal2.0 - 7.3 K/[facility] CenterNeutrophils/100 WBC (Bld)77.3 % [facility] HospitalPlatelets (Bld) [#/Vol]264 10*3/uL154 - 393 K/[facility] RBC (Bld) [#/Vol]3.20 10*6/uLAbnormalKettecraig hospital HealthWBC (Bld) [#/Vol]9.7 10*3/uL4.0 - 10.5 K/[facility] HospitalConsultson 06-29-2025 ConsultsEncounter Department: [facility] 4 MAIN Consults by Eduardo Mortensen DO at 06/29/2025 10:06 AM Author: Yordan Manzanorvice: OrthopedicsAuthor Type: Physician Filed: 06/29/2025 10:09 AMDate of Service: 06/29/2025 10:06 AMStatus: Signed Clerk Operator: Eduardo Mortensen DO (Physician) Consult Orders 1. IP Consult to Orthopedic Surgery [[id number]] ordered by EMELIA Santana at 06/28/252038 2. ED Contact Order [[id number]] ordered by Ramez Denney DO at 06/28/252022 Orthopedic Consult Note: Chief Complaint: I fell and hurt my hip History of Present Illness: Patient is an 84-year-old who fell at [facility] last night when he was getting up and trying to he catch his who was falling and fell onto his left hip sustaining a inner troches upstroke fracture with displacement. He was seen in the emergency department admitted through internal medicine orthopedic consultation was made for definitive care of the left femur fracture. Physical Exam: On physical exam supine in the bed moderate pain as expected. He did have a previous block that helped him last evening. He is cooperative on examination alert. He complains of nothing but when questioned does have some discomfort in the head where he hit his head on the table potentially. BP: 140/63 (06/29 832) Temp: 98.1 ?F (36.7 ?C) (06/29 832) Pulse: 66 (06/29 832) Resp: 16 (06/29 829) SpO2: 100 % (06/29 832) FiO2 (%): 21 % (06/29 100) O2 Flow Rate (L/min): -- Cardiac (WDL): -- Cardiac Rhythm: -- Past Medical History: DiagnosisDate -Hypertension History reviewed. No pertinent surgical history. Social History Socioeconomic History -Marital status: Tobacco Use -Smoking status:Former Types:Cigarettes -Smokeless tobacco:Never Vaping Use -Vaping status:Never Used Substance and Sexual Activity -Alcohol use:Yes -Drug use:Never -Sexual activity:Yes Partners:Female Social Drivers of Health Received from [facility] Safety AND Environment History reviewed. No pertinent family history. Imaging: Results for orders placed or performed during the hospital encounter of 06/28/25 XR-HIP UNI LEFT 2/3 VIEWS W/PELVIS Narrative EXAM: XR-HIP UNI LEFT 2/3 VIEWS W/PELVIS [id number] DATE OF SERVICE: 06/28/2025 7:56 pm DEMOGRAPHICS: Age: 84 y/o M HISTORY: fall, left hip deformity and pain COMPARISON: No existing relevant imaging study corresponding to the same anatomical region is available. TECHNIQUE: 2 view(s) of the Left hip(s) and a single AP view of the pelvis were obtained. Total Images: 2 FINDINGS: There is a comminuted and displaced intertrochanteric fracture of the left femur. There is medial displacement of the distal fracture fragment. Mild varus angulation. The joint spaces are maintained. There is no significant soft tissue swelling. Impression 1. Comminuted and displaced intertrochanteric fracture of the left femur with mild varus angulation. This dictation was created with voice recognition software. While attempts have been made to review the dictation as it is transcribed, on occasion the spoken word can be misinterpreted by the technology leading to omissions or inappropriate words, phrases or sentences. Electronically Signed by: Saúl Saeed DO, 06/28/2025 8:16 PM Dictation workstation: [id number] CT-HEAD W/O CONTRAST Narrative EXAM: CT-HEAD W/O CONTRAST [id number] DATE OF SERVICE: 06/28/2025 7:37 pm DEMOGRAPHICS: Age: 84 y/o M HISTORY: fall. pt denies head injury fall, on ASA COMPARISON: No existing relevant imaging study corresponding to the same anatomical region is available. TECHNIQUE: DOSE OPTIMIZATION: CT radiation dose optimization techniques (automated exposure control, and use of iterative reconstruction techniques, or adjustment of the mA and/or kV according to patient size) were used to limit patient radiation dose. TECHNICAL DESCRIPTION: Contiguous axial slices of the head were submitted without IV contrast. FINDINGS: Sinuses and mastoids: There are no fluid levels. Orbits: No acute orbital abnormality. Brain: Ventricles and sulci are at the upper limits of normal in caliber. There is no midline shift. Dural calcifications are noted. Vascular calcifications are noted. Minimal white-matter small-vessel ischemic changes are noted. There is no parenchymal or extra-axial hematoma. Impression 1. Minimal small-vessel ischemic changes 2. No acute hemorrhage. This dictation was created with voice recognition software. While attempts have been made to review the dictation as it is transcribed, on occasion the spoken word can be misinterpreted by the technology leading to omissions or inappropriate words, phrases or sentences. Electronically Signed by: Abdulkadir Pelaez MD, 06/28/2025 7:55 PM Dictation workstation: [id number] CT-SPINE CERVICAL WO CONTRAST Narrative EXAM: CT-SPINE CE (more content not included)...[facility] HamiltonOp Noteon [id number] NoteEncounter Department: [facility] SURGERY Op Note by So Ramsey DO at 06/29/2025 4:25 PM Author: Yordan Davalosrvice: OrthopedicsAuthor Type: Physician Filed: 06/29/2025 4:46 PMDate of Service: 06/29/2025 4:25 PMStatus: Signed Clerk Operator: So Ramsey DO (Physician) ORTHOPEDIC OPERATIVE NOTE Name: Joo Allen : 1940 CSN: [id number] Surgeon: So Ramsey DO, DO Facility: [facility] Date of Surgery: 06/28/2025 SURGEON: So Ramsey DO PREOP DX: Comminuted left peritrochanteric femur fracture POSTOP DX: Same PROCEDURES: ORIF of left peritrochanteric femur fracture with long cephalomedullary nail DOOR TO DOOR SALES REPRESENTATIVE: None COMPLICATIONS: None ANESTHESIA: General EBL: 200 IMPLANTS USED: Jim/Biomet natural nail 380 mm x 10 mm x 130 degrees 110 mm x 10.5mm lag screw 55 mm x 5.5 mm distal interlocking screw CONDITION: Satisfactory to PACU. INDICATION FOR PROCEDURE: This patient is a 84 y.o.-year-old male who presents after sustaining a mechanical fall onto his left hip. Patient was out to dinner with his when she fell. The patient attempted to catch his and she fell on top of him directly onto his left hip. He felt immediate pain was unable to bear weight. He was brought to [facility] where x-rays of the left hip were obtained which demonstrated a comminuted peritrochanteric left hip fracture. Orthopedic surgery was consulted for further evaluation and treatment. Wrist benefits and alternatives to operative treatment were discussed at length with the patient and ultimate decision was made to proceed with cephalomedullary nail of the left hip. PROCEDURE IN DETAIL: Patient was seen in the preoperative holding area. The operative extremity was marked. Informed consent was obtained. Patient was then taken back to the operative suite. General anesthesia was induced by the anesthesia department on the hospital bed. Patient was then placed in traction boots and transferred over to the [place] traction table and placed in the supine position. The left arm was placed over the chest on a stack of blankets and taped into position. Fracture reduction was performed with a combination of inline traction, internal rotation and adduction. Prior to prepping and draping, preoperative x-rays were obtained confirming fracture reduction. There was noted to still be a large segment of the lateral/anterior cortex that was in varus, however the medial calcar was noted to be well reduced. Patient was then prepped and draped in normal sterile fashion. Prior to initiation of the procedure, a preincision timeout was performed confirming patient's identity, planned procedure and correct surgical site. Patient had received 2 g of IV Ancef as well as IV TXA. A stab incision was then made over the apex of the lateral fragment. Dissection was taken down through skin subcutaneous tissue and the IT band. A blunt tamp was then placed on the lateral aspect of the fracture and pushed medial. This resulted in improvement of the fracture reduction. A stab incision was then made proximal to the tip of the greater trochanter. Threaded guidewire was then inserted on the greater trochanter. Positioning of the guidewire was then fine-tuned alternating between 2 guidewires using the offset guide. Once we were happy with the positioning of the guidewire just medial to the tip of the greater trochanter and centered in the tip of the greater trochanter and femoral neck on the lateral image, the guidewire was then advanced and seated to the appropriate depth. The opening reamer was then inserted over the tip of the guidewire and reamed to the appropriate depth. Fracture reduction was maintained throughout reaming and special attention was paid to ensure that the trajectory of the opening reamer was in line with the medullary canal on the AP and lateral image. The opening reamer and guidewire were then removed and a ball-tipped guidewire was then placed into the opening reamed hole. Sequential reaming was then performed starting with size 9 mm up to a 11.5 mm. Depth of the guidewire was then measured and found to be 380 mm. A 380 x 10 mm x 130 degree Jim natural nail was then inserted over the ball- tipped guidewire and seated to the appropriate depth. Ball-tipped guidewire was then removed. A additional stab incision was made on the lateral aspect of the thigh to accommodate the guidewire and trocar for the lag screw. The trocar was inserted through the stab incision and aiming arm jig and seated on the lateral aspect of the femur. Guidewire was then advanced in a low center position on the AP and posterior central position on the lateral. Depth of the guidewire was then measured and found to be 110 mm. The anterior lateral fragment was noted to not be captured by the guidewire due to anterior nature of the fracture line. An additional K (more content not included)...[facility] HamiltonTYPE AND SCREENon [id number] Health NetworkComment on above:Order Comment: Release to patient->ImmediatePerformed By: #### [id number] #### [address] Nom (Bld)PositiveNoPremier Health Miami Valley Hospital SouthComment on above:Order Comment: Release to patient->ImmediatePerformed By: #### [id number] #### [facility] [address] [place] [address] USAType and Screenon [id number] HealthRh Nom (Bld)PositiveBerger HospitalXR Hip - left Single viewon 23-38-3026Ahhtvnzfzvljsh fluoroscopy for guidance and documentation and performing ORIF of a comminuted intertrochanteric fracture of the left femur. This dictation was created with voice recognition software. While attempts have been made to reviewthe dictation as it is transcribed, on occasion the spoken word can be misinterpreted by the technology leading to omissions or inappropriate words, phrases or sentences. Electronically Signed by: Leonard Deleon DO, 06/29/2025 5:30 PM Dictation workstation: [id number] MERLYN IMAGINGEXAM: XR-HIP LEFT 1 VIEW WO/ PELVIS [id number] DATE OF SERVICE: 06/29/2025 3:52 pm DEMOGRAPHICS: Age: 84 y/o M HISTORY: Gamma nail COMPARISON: Radiographs of the left hip from 06/28/2025. TECHNIQUE: A total of 9 intraoperative fluoroscopic views of the left hip were obtained. Total Images: 9 FINDINGS: Intraoperative fluoroscopy was utilized for guidance and documentation and performing ORIF of a comminuted intertrochanteric fracture of the proximal left femur. Leonard Rivero III, - 06/29/2025 EXAM: XR-HIP LEFT 1 VIEW WO/ PELVIS [id number] DATE OF SERVICE: 06/29/2025 3:52 pm DEMOGRAPHICS: Age: 84 y/o M HISTORY: Gamma nail COMPARISON: Radiographs of the left hip from 06/28/2025. TECHNIQUE: A total of 9 intraoperative fluoroscopic views of the left hip were obtained. Total Images: 9 FINDINGS: Intraoperative fluoroscopy was utilized for guidance and documentation and performing ORIF of a comminuted intertrochanteric fracture of the proximal left femur. IMPRESSION: Intraoperative fluoroscopy for guidance and documentation and performing ORIF of a comminuted intertrochanteric fracture of the left femur. This dictation was created with voice recognition software. While attempts have been made to reviewthe dictation as it is transcribed, on occasion the spoken word can be misinterpreted by the technology leading to omissions or inappropriate words, phrases or sentences. Electronically Signed by: Leonard Deleon DO, 06/29/2025 5:30 PM Dictation workstation: [id number] Medina HospitalRadiology Study observation (narrative)[facility] Hip - left Single viewOrdered By: Leonard Deleon on [id number] Spoqa Work Phone: [phone]-TMM LEFT 1 VIEW WO/ PELVISon [id number]-HIP LEFT 1 VIEW WO/ PELVISEXAM: XR-HIP LEFT 1 VIEW WO/ PELVIS [id number] DATE OF SERVICE: 06/29/2025 3:52 pm DEMOGRAPHICS: Age: 84 y/o M HISTORY: Gamma nail COMPARISON: Radiographs of the left hip from 06/28/2025. TECHNIQUE: A total of 9 intraoperative fluoroscopic views of the left hip were obtained. Total Images: 9 FINDINGS: Intraoperative fluoroscopy was utilized for guidance and documentation and performing ORIF of a comminuted intertrochanteric fracture of the proximal left femur. IMPRESSION: IMPRESSION: Intraoperative fluoroscopy for guidance and documentation and performing ORIF of a comminuted intertrochanteric fracture of the left femur. This dictation was created with voice recognition software. While attempts have been made to review the dictation as it is transcribed, on occasion the spoken word can be misinterpreted by the technology leading to omissions or inappropriate words, phrases or sentences. Electronically Signed by: Leonard Deleon DO, 06/29/2025 5:30 PM Dictation workstation: [id number] Health NetworkCBC W/DIFFon [id number] ABS AUTO0.1 K/uLNormal0.0-0.1KOhioHealth Marion General HospitalComment on above:Order Comment: Release to patient->ImmediatePerformed By: #### [id number], [id number] #### [facility] [address] [place] [address] USABasophils/100 WBC (Bld)1.0 %NormalAultman Orrville Hospital Comment on above:Order Comment: Release to patient->ImmediatePerformed By: #### [id number], [id number] #### [facility] [address] [place] [address] USAEosinophils (Bld) [#/Vol]0.3 10*3/uLNormal0.0-0.4[facility] on above:Order Comment: Release to patient->Immediate Performed By: #### [id number], [id number] #### [facility] [address] [place] [address] USAEosinophils/100 WBC (Bld)4.7 %NormalAultman Orrville HospitalComscheurer hospital on above:Order Comment: Release to patient->ImmediatePerformed By: #### [id number], [id number] #### [facility] [address] [place] [address] USAErythrocyte distribution width (RBC) [Ratio]13.2 %Normal 11.7-15.2KOhioHealth Marion General HospitalComscheurer hospital on above:Order Comment: Release to patient->ImmediatePerformed By: #### [id number], [id number] #### [facility] [address] [place] [address] USAHematocrit (Bld) [Volume fraction]37.5 %Nbwyrqur78.0-51.5 [facility] on above:Order Comment: Release to patient->ImmediatePerformed By: #### [id number], [id number] #### [facility] [address] [place] [address] USAHemoglobin (Bld) [Mass/Vol]13.3 g/nAWetoac46.1-17.6 [facility] on above:Order Comment: Release to patient->ImmediatePerformed By: #### [id number], [id number] #### [facility] [address] [place] [address] USALymphocytes (Bld) [#/Vol]1.4 10*3/uLNormal0.8-3.6[facility] on above:Order Comment: Release to patient->Immediate Performed By: #### [id number], [id number] #### [facility] [address] [place] [address] USALymphocytes/100 WBC (Bld)22.6 %NormalOhio State University Wexner Medical Center on above:Order Comment: Release to patient->ImmediatePerformed By: #### [id number], [id number] #### [facility] [address] [place] [address] USAH (RBC) [Entitic mass]34.6 joWpqqfzwq09.4-33.4Aultman Orrville HospitalComment on above:Order Comment: Release to patient->Immediate Performed By: #### [id number], [id number] #### [facility] [address] [place] [address] USAMCHC (RBC) [Mass/Vol]35.6 g/qUWylrvb29.1-37.0[facility] Orrville HospitalComment on above:Order Comment: Release to patient->Immediate Performed By: #### [id number], [id number] #### [facility] [address] [place] [address] USAMCV (RBC) [Entitic vol]97.2 tWFribtb86.0-99.0[facility] Orrville HospitalComment on above:Order Comment: Release to patient->Immediate Performed By: #### [id number], [id number] #### [facility] [address] [place] [address] USAMonocytes (Bld) [#/Vol]0.5 10*3/uLNormal0.3-0.9[facility]rville HospitalComment on above:Order Comment: Release to patient->Immediate Performed By: #### [id number], [id number] #### [facility] [address] [place] [address] USAMonocytes/100 WBC (Bld)7.8 %[facility] Comment on above:Order Comment: Release to patient->ImmediatePerformed By: #### [id number], [id number] #### [facility] [address] [place] [address] USANEUTROPHIL ABS AUTO4.0 K/uLNormal2.0-7.3KOhioHealth Marion General HospitalComment on above:Order Comment: Release to patient->ImmediatePerformed By: #### [id number], [id number] #### [facility] [address] [place] [address] USANeutrophils/100 WBC (Bld)63.9 %[facility] HamiltonComment on above:Order Comment: Release to patient->ImmediatePerformed By: #### [id number], [id number] #### [facility] [address] [place] [address] USAPlatelets (Bld) [#/Vol]207 10*3/lFWhxpgj590-031Ejmdjvmbs Health NetworkComment on above:Order Comment: Release to patient->Immediate Result Comment: RPerformed By: #### [id number], [id number] #### [facility] [address] [place] [address] USARBC (Bld) [#/Vol]3.86 10*6/uLAbnormal4.30-5.86[facility] Orr[facility] HospitalComscheurer hospital on above:Order Comment: Release to patient->Immediate Performed By: #### [id number], [id number] #### [facility] [address] [place] [address] USAWBC (Bld) [#/Vol]6.2 10*3/uLNormal4.0-10.5[facility] HospitalComscheurer hospital on above:Order Comment: Release to patient->ImmediatePerformed By: #### [id number], [id number] #### [facility] [address] [place] [address] USACBC w/ Diffon [id number] (Bld) [#/Vol]0.1 10*3/uL 0.0 - 0.1 K/uLMedina HospitalBasophils/100 WBC (Bld)1.0 %[facility] Eosinophils (Bld) [#/Vol]0.3 10*3/uL0.0 - 0.4 K/uLMedina Hospital Eosinophils/100 WBC (Bld)4.7 %Medina HospitalErythrocyte distribution width (RBC) [Ratio]13.2 %11.7 - 15.2 %Medina HospitalHematocrit (Bld) [Volume fraction]37.5 %Wfjgcltf25.0 - 51.5 %Medina HospitalHemoglobin (Bld) [Mass/Vol] 13.3 g/dL13.1 - 17.6 g/dLMedina HospitalInterpretation and review of laboratory resultsAbnormalKettecraig hospital HealthLymphocytes (Bld) [#/Vol]1.4 10*3/uL0.8 - 3.6 K/uLMedina HospitalLymphocytes/100 WBC (Bld)22.6 %[facility] HospitalH (RBC) [Entitic mass]34.6 sjHunnqbhs36.4 - 33.4 pgWVUMedicine Barnesville HospitalHC (RBC) [Mass/Vol] 35.6 g/dL31.1 - 37.0 g/dLWVUMedicine Barnesville HospitalV (RBC) [Entitic vol]97.2 fL85.0 - 99.0 flMedina HospitalMonocytes (Bld) [#/Vol]0.5 10*3/uL0.3 - 0.9 K/[facility] Medical CenterMonocytes/100 WBC (Bld)7.8 %[facility]ina HospitalNeutrophils (Bld) [#/Vol]4.0 10*3/uL2.0 - 7.3 K/uLMedina HospitalNeutrophils/100 WBC (Bld)63.9 %Medina HospitalPlatelets (Bld) [#/Vol]207 10*3/uL154 - 393 K/[facility] Medical CenterComment on above:RRBC (Bld) [#/Vol]3.86 10*6/uLAbnormalKettering HealthWBC (Bld) [#/Vol] 6.2 10*3/uL4.0 - 10.5 [facility] InstitutePREHENSIVE METABOLIC PANELon [id number] [Mass/Vol]4.1 g/dLNormal3.5-5.7[facility] Orrville HospitalComment on above:Order Comment: KDIGO 2012 GFR Categories Stage Description eGFR (mL/min/1.73m2) G1 Normal or high >=90 G2 Mildly decreased 60-89 G3a Mildly to moderately decreased 45-59 G3b Moderately to severely decreased 30-44 G4 Severely decreased 15-29 G5 Kidney Failure <15 Release to patient->ImmediatePerformed By: #### [id number] #### [facility] [address] [place] [id number] USAAlbumin/Globulin [Mass ratio]1.6 {ratio}Normal1.0-2.0 [facility] HospitalComment on above:Order Comment: KDIGO 2012 GFR Categories Stage Description eGFR (mL/min/1.73m2) G1 Normal or high >=90 G2 Mildly decreased 60-89 G3a Mildly to moderately decreased 45-59 G3b Moderately to severely decreased 30-44 G4 Severely decreased 15-29 G5 Kidney Failure <15 Release to patient->ImmediatePerformed By: #### [id number] #### [facility] [address] [place] [address] USAALP [Catalytic activity/Vol]82 U/NHvasrf57-344FfxfteanqAultman Orrville HospitalComment on above:Order Comment: KDIGO 2012 GFR Categories Stage Description eGFR (mL/min/1.73m2) G1 Normal or high >=90 G2 Mildly decreased 60-89 G3a Mildly to moderately decreased 45-59 G3b Moderately to severely decreased 30-44 G4 Severely decreased 15-29 G5 Kidney Failure <15 Release to patient->ImmediatePerformed By: #### [id number] #### [facility] [address] [place] [address] USAALT [Catalytic activity/Vol]18 U/LNormal7-52[facility] HospitalComment on above:Order Comment: KDIGO 2012 GFR Categories Stage Description eGFR (mL/min/1.73m2) G1 Normal or high >=90 G2 Mildly decreased 60-89 G3a Mildly to moderately decreased 45-59 G3b Moderately to severely decreased 30-44 G4 Severely decreased 15-29 G5 Kidney Failure <15 Release to patient->ImmediatePerformed By: #### [id number] #### [facility] [address] [place] [address] USAAnion gap [Moles/Vol]9 mmol/LNormal7-16[facility] HospitalComment on above:Order Comment: KDIGO 2012 GFR Categories Stage Description eGFR (mL/min/1.73m2) G1 Normal or high >=90 G2 Mildly decreased 60-89 G3a Mildly to moderately decreased 45-59 G3b Moderately to severely decreased 30-44 G4 Severely decreased 15-29 G5 Kidney Failure <15 Release to patient->ImmediatePerformed By: #### [id number] #### [facility] [address] [place] [address] USAAST [Catalytic activity/Vol]38 U/SMdrcqm62-85UvkicknxiAultman Orrville HospitalComment on above:Order Comment: KDIGO 2012 GFR Categories Stage Description eGFR (mL/min/1.73m2) G1 Normal or high >=90 G2 Mildly decreased 60-89 G3a Mildly to moderately decreased 45-59 G3b Moderately to severely decreased 30-44 G4 Severely decreased 15-29 G5 Kidney Failure <15 Release to patient->ImmediatePerformed By: #### [id number] #### [facility] [address] [place] [address] USABilirubin [Mass/Vol]0.6 mg/dLNormal0.3-1.0[facility] HospitalComment on above:Order Comment: KDIGO 2012 GFR Categories Stage Description eGFR (mL/min/1.73m2) G1 Normal or high >=90 G2 Mildly decreased 60-89 G3a Mildly to moderately decreased 45-59 G3b Moderately to severely decreased 30-44 G4 Severely decreased 15-29 G5 Kidney Failure <15 Release to patient->ImmediatePerformed By: #### [id number] #### [facility] [address] [place] [address] USACalcium [Mass/Vol]8.5 mg/dLAbnormal8.6-10.2KOhioHealth Marion General HospitalComment on above:Order Comment: KDIGO 2012 GFR Categories Stage Description eGFR (mL/min/1.73m2) G1 Normal or high >=90 G2 Mildly decreased 60-89 G3a Mildly to moderately decreased 45-59 G3b Moderately to severely decreased 30-44 G4 Severely decreased 15-29 G5 Kidney Failure <15 Release to patient->ImmediatePerformed By: #### [id number] #### [facility] [address] [place] [address] USAChloride [Moles/Vol]98 mmol/NNiftgi24-720ZmdadeudaAultman Orrville HospitalComment on above:Order Comment: KDIGO 2012 GFR Categories Stage Description eGFR (mL/min/1.73m2) G1 Normal or high >=90 G2 Mildly decreased 60-89 G3a Mildly to moderately decreased 45-59 G3b Moderately to severely decreased 30-44 G4 Severely decreased 15-29 G5 Kidney Failure <15 Release to patient->ImmediatePerformed By: #### [id number] #### [facility] [address] [place] [address] USACO2 [Moles/Vol]20 mmol/OFygliort02-48IacadsjmwAultman Orrville HospitalComment on above:Order Comment: KDIGO 2012 GFR Categories Stage Description eGFR (mL/min/1.73m2) G1 Normal or high >=90 G2 Mildly decreased 60-89 G3a Mildly to moderately decreased 45-59 G3b Moderately to severely decreased 30-44 G4 Severely decreased 15-29 G5 Kidney Failure <15 Release to patient->ImmediatePerformed By: #### [id number] #### [facility] [address] [place] [address] USACreatinine [Mass/Vol]1.12 mg/dLNormal0.7-1.3KOhioHealth Marion General HospitalComment on above:Order Comment: KDIGO 2012 GFR Categories Stage Description eGFR (mL/min/1.73m2) G1 Normal or high >=90 G2 Mildly decreased 60-89 G3a Mildly to moderately decreased 45-59 G3b Moderately to severely decreased 30-44 G4 Severely decreased 15-29 G5 Kidney Failure <15 Release to patient->ImmediatePerformed By: #### [id number] #### [facility] [address] [place] [address] USAGFR/1.73 sq M.predicted among non-blacks MDRD (S/P/Bld) [Vol rate/Area]64 mL/min/{1.73_m2}Normal>90Ault[facility] Orrville HospitalComment on above:Order Comment: KDIGO 2012 GFR Categories Stage Description eGFR (mL/min/1.73m2) G1 Normal or high >=90 G2 Mildly decreased 60-89 G3a Mildly to moderately decreased 45-59 G3b Moderately to severely decreased 30-44 G4 Severely decreased 15-29 G5 Kidney Failure <15 Release to patient->ImmediateResult Comment: Reported eGFR is based on the CKD- EPI 2021 equation that does not use a race coefficient.Performed By: #### [id number] #### [facility] [address] [place] [address] USAGlobulin (S) [Mass/Vol]2.6 g/dLNormal2.6-4.2KOhioHealth Marion General HospitalComment on above:Order Comment: KDIGO 2012 GFR Categories Stage Description eGFR (mL/min/1.73m2) G1 Normal or high >=90 G2 Mildly decreased 60-89 G3a Mildly to moderately decreased 45-59 G3b Moderately to severely decreased 30-44 G4 Severely decreased 15-29 G5 Kidney Failure <15 Release to patient->ImmediatePerformed By: #### [id number] #### [facility] [address] [place] [address] USAGlucose [Mass/Vol]221 mg/rBYebemrrr35-222Jxkyeqzkx Health NetworkComment on above:Order Comment: KDIGO 2012 GFR Categories Stage Description eGFR (mL/min/1.73m2) G1 Normal or high >=90 G2 Mildly decreased 60-89 G3a Mildly to moderately decreased 45-59 G3b Moderately to severely decreased 30-44 G4 Severely decreased 15-29 G5 Kidney Failure <15 Release to patient->ImmediatePerformed By: #### [id number] #### [facility] [address] [place] [address] USAPotassium [Moles/Vol]5.2 mmol/LAbnormal3.5-5.1KOhioHealth Marion General HospitalComment on above:Order Comment: KDIGO 2012 GFR Categories Stage Description eGFR (mL/min/1.73m2) G1 Normal or high >=90 G2 Mildly decreased 60-89 G3a Mildly to moderately decreased 45-59 G3b Moderately to severely decreased 30-44 G4 Severely decreased 15-29 G5 Kidney Failure <15 Release to patient->ImmediateResult Comment: Hemolyzed. Hemolysis may affect this result. Specimen may be redrawn at the discretion of ordering physician. Performed By: #### [id number] #### [facility] [address] [place] [address] USAProtein [Mass/Vol]6.7 g/dLNormal6.0-8.3KOhioHealth Marion General HospitalComment on above:Order Comment: KDIGO 2012 GFR Categories Stage Description eGFR (mL/min/1.73m2) G1 Normal or high >=90 G2 Mildly decreased 60-89 G3a Mildly to moderately decreased 45-59 G3b Moderately to severely decreased 30-44 G4 Severely decreased 15-29 G5 Kidney Failure <15 Release to patient->ImmediatePerformed By: #### LAB17 #### [facility] [address] [place] [address] USASodium [Moles/Vol]127 mmol/ZKqtfbegz750-067Bmlrwmdke Health NetworkComment on above:Order Comment: KDIGO 2012 GFR Categories Stage Description eGFR (mL/min/1.73m2) G1 Normal or high >=90 G2 Mildly decreased 60-89 G3a Mildly to moderately decreased 45-59 G3b Moderately to severely decreased 30-44 G4 Severely decreased 15-29 G5 Kidney Failure <15 Release to patient->ImmediatePerformed By: #### LAB17 #### [facility] [address] [place] [address] USAUrea nitrogen [Mass/Vol]11 mg/dLNormal7Aultman Orrville HospitalComment on above:Order Comment: KDIGO 2012 GFR Categories Stage Description eGFR (mL/min/1.73m2) G1 Normal or high >=90 G2 Mildly decreased 60-89 G3a Mildly to moderately decreased 45-59 G3b Moderately to severely decreased 30-44 G4 Severely decreased 15-29 G5 Kidney Failure <15 Release to patient->ImmediatePerformed By: #### [id number] #### [facility] [address] [place] [address] USACT Cervical spine WO contraston . No CT evidence of acute traumatic injury in the cervical spine. 2. Multilevel degenerative spondylosis of the cervical spine as noted above. This dictation was created with voice recognition software. While attempts have been made to reviewthe dictation as it is transcribed, on occasion the spoken word can be misinterpreted by the technology leading to omissions or inappropriate words, phrases or sentences. Electronically Signed by: Marlon Covarrubias MD, 06/28/2025 8:03 PM Dictation workstation: [id number] FLUENCY IMAGINGEXAM: CT-SPINE CERVICAL WO CONTRAST [id number] DATE OF SERVICE: 06/28/2025 7:37 pm DEMOGRAPHICS: Age: 84 y/o M HISTORY: fall fall on ASA COMPARISON: No existing relevant imaging study corresponding to the same anatomical region is available. TECHNIQUE: DOSE OPTIMIZATION: CT radiation dose optimization techniques (automated exposure control, and use of iterative reconstruction techniques, or adjustment of the mA and/or kV according to patient size) were used to limit patient radiation dose. TECHNICAL DESCRIPTION: Contiguous axial slices of the cervical spine were submitted without IV administration of contrast.Additional coronal and sagittal reformatted images were submitted. FINDINGS: Grade 1 anterolisthesis at C4-5.Theremaining cervical lordosis is maintained. The vertebral body heights are normal. The mineralization is normal. No acute fracture or subluxation is seen. The atlantoaxial jointdemonstrates degenerative changes. 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 Uncovertebral and endplate osteophytosis is seen. No prevertebral soft tissue abnormality is seen. Multilevel disc height loss most prominent at C5-6 with severe narrowing with a posterior disc osteophyte complex. Posterior disc osteophyte complexes at C3-4, C4-5, and C6-7. Xpnd-me-cejlrape central canal stenosis at C5-6. Multilevel foraminal stenosis is seen secondary to uncovertebral osteophytosis and facet arthropathy which is advanced at multiple levels. Marlon Vallejo MD - 06/28/2025 EXAM: CT-SPINE CERVICAL WO CONTRAST [id number] DATE OF SERVICE: 06/28/2025 7:37 pm DEMOGRAPHICS: Age: 84 y/o M HISTORY: fall fall on ASA COMPARISON: No existing relevant imaging study corresponding to the same anatomical region is available. TECHNIQUE: DOSE OPTIMIZATION: CT radiation dose optimization techniques (automated exposure control, and use of iterative reconstruction techniques, or adjustment of the mA and/or kV according to patient size) were used to limit patient radiation dose. TECHNICAL DESCRIPTION: Contiguous axial slices of the cervical spine were submitted without IV administration of contrast.Additional coronal and sagittal reformatted images were submitted. FINDINGS: Grade 1 anterolisthesis at C4-5.Theremaining cervical lordosis is maintained. The vertebral body heights are normal. The mineralization is normal. No acute fracture or subluxation is seen. The atlantoaxial jointdemonstrates degenerative changes. 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 Uncovertebral and endplate osteophytosis is seen. No prevertebral soft tissue abnormality is seen. Multilevel disc height loss most prominent at C5-6 with severe narrowing with a posterior disc osteophyte complex. Posterior disc osteophyte complexes at C3-4, C4-5, and C6-7. Rnal-ja-nfcexufy central canal stenosis at C5-6. Multilevel foraminal stenosis is seen secondary to uncovertebral osteophytosis and facet arthropathy which is advanced at multiple levels. IMPRESSION: 1. No CT evidence of acute traumatic injury in the cervical spine. 2. Multilevel degenerative spondylosis of the cervical spine as noted above. This dictation was created with voice recognition software. While attempts have been made to reviewthe dictation as it is transcribed, on occasion the spoken word can be misinterpreted by the technology leading to omissions or inappropriate words, phrases or sentences. Electronically Signed by: Marlon Covarrubias MD, 06/28/2025 8:03 PM Dictation workstation: [id number] [facility] Cervical spine WO contrastOrdered By: Marlon Covarrubias on [id number] Health System Ontario Hospital Phone: CT Head WO contraston . Minimal small- vessel ischemic changes 2. No acute hemorrhage. This dictation was created with voice recognition software. While attempts have been made to reviewthe dictation as it is transcribed, on occasion the spoken word can be misinterpreted by the technology leading to omissions or inappropriate words, phrases or sentences. Electronically Signed by: Abdulkadir Pelaez MD, 06/28/2025 7:55 PM Dictation workstation: [id number] MERLYN IMAGINGEXAM: CT-HEAD W/O CONTRAST [id number] DATE OF SERVICE: 06/28/2025 7:37 pm DEMOGRAPHICS: Age: 84 y/o M HISTORY: fall. pt denies head injury fall, on ASA COMPARISON: No existing relevant imaging study corresponding to the same anatomical region is available. TECHNIQUE: DOSE OPTIMIZATION: CT radiation dose optimization techniques (automated exposure control, and use of iterative reconstruction techniques, or adjustment of the mA and/or kV according to patient size) were used to limit patient radiation dose. TECHNICAL DESCRIPTION: Contiguous axial slices of the head were submitted without IV contrast. FINDINGS: Sinuses and mastoids: There are no fluid levels. Orbits: No acute orbital abnormality. Brain: Ventricles and sulci are at the upper limits of normal in caliber. There is no midline shift. Dural calcifications are noted. Vascular calcifications are noted. Minimal white-matter small-vessel ischemic changes are noted. There is no parenchymal or extra-axial hematoma. TIFFANIE ZULETA IMAGINGWelcAbdulkadir MD - 06/28/2025 EXAM: CT-HEAD W/O CONTRAST [id number] DATE OF SERVICE: 06/28/2025 7:37 pm DEMOGRAPHICS: Age: 84 y/o M HISTORY: fall. pt denies head injury fall, on ASA COMPARISON: No existing relevant imaging study corresponding to the same anatomical region is available. TECHNIQUE: DOSE OPTIMIZATION: CT radiation dose optimization techniques (automated exposure control, and use of iterative reconstruction techniques, or adjustment of the mA and/or kV according to patient size) were used to limit patient radiation dose. TECHNICAL DESCRIPTION: Contiguous axial slices of the head were submitted without IV contrast. FINDINGS: Sinuses and mastoids: There are no fluid levels. Orbits: No acute orbital abnormality. Brain: Ventricles and sulci are at the upper limits of normal in caliber. There is no midline shift. Dural calcifications are noted. Vascular calcifications are noted. Minimal white-matter small-vessel ischemic changes are noted. There is no parenchymal or extra-axial hematoma. IMPRESSION: 1. Minimal small-vessel ischemic changes 2. No acute hemorrhage. This dictation was created with voice recognition software. While attempts have been made to reviewthe dictation as it is transcribed, on occasion the spoken word can be misinterpreted by the technology leading to omissions or inappropriate words, phrases or sentences. Electronically Signed by: Abdulkadir Pelaez MD, 06/28/2025 7:55 PM Dictation workstation: [id number] [facility] Head WO contrastOrdered By: Abdulkadir Pelaez on 06-28-2025 [facility] Work Phone: [phone]-KKAU W/O CONTRASTon [id number]-HEAD W/O CONTRAST EXAM: CT-HEAD W/O CONTRAST [id number] DATE OF SERVICE: 06/28/2025 7:37 pm DEMOGRAPHICS: Age: 84 y/o M HISTORY: fall. pt denies head injury fall, on ASA COMPARISON: No existing relevant imaging study corresponding to the same anatomical region is available. TECHNIQUE: DOSE OPTIMIZATION: CT radiation dose optimization techniques (automated exposure control, and use of iterative reconstruction techniques, or adjustment of the mA and/or kV according to patient size) were used to limit patient radiation dose. TECHNICAL DESCRIPTION: Contiguous axial slices of the head were submitted without IV contrast. FINDINGS: Sinuses and mastoids: There are no fluid levels. Orbits: No acute orbital abnormality. Brain: Ventricles and sulci are at the upper limits of normal in caliber. There is no midline shift. Dural calcifications are noted. Vascular calcifications are noted. Minimal white-matter small-vessel ischemic changes are noted. There is no parenchymal or extra-axial hematoma. IMPRESSION: IMPRESSION: 1. Minimal small-vessel ischemic changes 2. No acute hemorrhage. This dictation was created with voice recognition software. While attempts have been made to review the dictation as it is transcribed, on occasion the spoken word can be misinterpreted by the technology leading to omissions or inappropriate words, phrases or sentences. Electronically Signed by: Abdulkadir Pelaez MD, 06/28/2025 7:55 PM Dictation workstation: [id number] Health HamiltonCT-SPINE CERVICAL WO CONTRASTon [id number]-SPINE CERVICAL WO CONTRASTEXAM: CT-SPINE CERVICAL WO CONTRAST [id number] DATE OF SERVICE: 06/28/2025 7:37 pm DEMOGRAPHICS: Age: 84 y/o M HISTORY: fall fall on ASA COMPARISON: No existing relevant imaging study corresponding to the same anatomical region is available. TECHNIQUE: DOSE OPTIMIZATION: CT radiation dose optimization techniques (automated exposure control, and use of iterative reconstruction techniques, or adjustment of the mA and/or kV according to patient size) were used to limit patient radiation dose. TECHNICAL DESCRIPTION: Contiguous axial slices of the cervical spine were submitted without IV administration of contrast. Additional coronal and sagittal reformatted images were submitted. FINDINGS: Grade 1 anterolisthesis at C4-5.Theremaining cervical lordosis is maintained. The vertebral body heights are normal. The mineralization is normal. No acute fracture or subluxation is seen. The atlantoaxial jointdemonstrates degenerative changes. 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 Uncovertebral and endplate osteophytosis is seen. No prevertebral soft tissue abnormality is seen. Multilevel disc height loss most prominent at C5-6 with severe narrowing with a posterior disc osteophyte complex. Posterior disc osteophyte complexes at C3-4, C4-5, and C6-7. Ksiv-gq-bmcskljd central canal stenosis at C5-6. Multilevel foraminal stenosis is seen secondary to uncovertebral osteophytosis and facet arthropathy which is advanced at multiple levels. IMPRESSION: IMPRESSION: 1. No CT evidence of acute traumatic injury in the cervical spine. 2. Multilevel degenerative spondylosis of the cervical spine as noted above. This dictation was created with voice recognition software. While attempts have been made to review the dictation as it is transcribed, on occasion the spoken word can be misinterpreted by the technology leading to omissions or inappropriate words, phrases or sentences. Electronically Signed by: Marlon Covarrubias MD, 06/28/2025 8:03 PM Dictation workstation: [id number] Health HamiltonComprehensive Metabolic PanelOrdered By: Yang Cuenca on [id number] [Mass fraction] 6.7 g/dL6.0 - 8.3 g/dLKetmetrohealth main campus medical center HealthAlbumin BCP dye (S/P/Bld) [Mass/Vol]4.1 g/dL3.5 - 5.7 g/dLKettering HealthAlbumin/Globulin [Mass ratio]1.6 {ratio}1.0 - 2.0Kettering HealthALP (S/P/Bld) [Catalytic activity/Vol]82 U/L34 - 104 U/L [place] HealthALT (S/P/Bld) [Catalytic activity/Vol]18 U/L7 - 52 U/LKdecatur health systemsring [facility] Community HospitalAnion gap 4 (S/P/Bld) [Moles/Vol]9 mmol/L7 - 16 mmol/LKregency hospital cleveland east HealthAST No additional P-5'-P [Catalytic activity/Vol]38 U/L13 - 39 U/LKdecatur health systemsring [facility] Bilirubin (BldV) [Mass/Vol]0.6 mg/dl0.3 - 1.0 mg/dlKetmetrohealth main campus medical center HealthCalcium (Bld) [Mass/Vol]8.5 mg/dLAbnormal8.6 - 10.2 mg/dLKetmetrohealth main campus medical center HealthChloride (S/P/Bld) [Moles/Vol]98 mmol/L98 - 107 mmol/LKettering HealthCO2 (S/P/Bld) [Moles/Vol]20 mmol/CDqfydfag48 - 31 mmol/LKdecatur health systemsring HealthCreatinine [Mass/Vol]1.12 mg/dL0.70 - 1.30 mg/dLKetmetrohealth main campus medical center HealthGFR Male64- PINFKetMansfield HospitalComment on above: Reported eGFR is based on the CKD-EPI 2020 equation that does not use a race coefficient.Globulin (S) [Mass/Vol]2.6 g/dL2.6 - 4.2 g/dLKetmetrohealth main campus medical center HealthGlucose [Mass/Vol]221 mg/sNBksvlmmh44 - 109 mg/dLMedina HospitalInterpretation and review of laboratory resultsAbnormalKettecraig hospital HealthPotassium (S/P/Bld) [Moles/Vol]5.2 mmol/LAbnormal3.5 - 5.1 mmol/LKettering HealthComment on above: Hemolyzed. Hemolysis may affect this result. Specimen may be redrawn at the discretion of ordering physician.Sodium (S/P/Bld) [Moles/Vol]127 mmol/LAbnormal 136 - 145 mmol/LKdecatur health systemsring HealthUrea nitrogen [Mass/Vol]11 mg/dL7 - 25 mg/dL [facility] KDIGO 2012 GFR Categories Stage Description eGFR (mL/min/1.73m2) G1 Normal or high >=90 G2 Mildly decreased 60-89 G3a Mildly to moderately decreased 45-59 G3b Moderately to severely decreased 30-44 G4 Severely decreased 15-29 G5 Kidney Failure <15Ber[facility] HospitalED Provider Noteson [id number] Provider NotesEncounter Department: [facility] 4 MAIN ED Provider Notes by Ramez Denney DO at 06/28/2025 6:48 PM Author: Yordan Funezrvice: Emergency MedicineAuthor Type: ED Physician Filed: 06/28/2025 10:12 PMDate of Service: 06/28/2025 6:48 PMStatus: Signed Clerk Operator: Ramez Denney DO (ED Physician) LOCATION OF ENCOUNTER [facility] Emergency Department CHIEF COMPLAINT Chief Complaint Patient presents with -Fall HPI Joo Allen is a 84 y.o. male with PMHx of hypertension who presents to the emergency department with complaint of a fall. Patient was at [facility], apparently his started falling and when he tried to catch her he fell backwards landing on his left hip. He denies any LOC, does not believe he hit his head, but family at bedside states he may have hit his head on a table. He also has some swelling of his left elbow. Denies any acute complaints at this time other than his left hip hurting. History obtained from: patient Limitations of history taking: none PCP: Sai Anderson MD REVIEW OF SYSTEMS A 10 point review of systems was completed and pertinent positives and negatives are as above in HPI. Electronic medical records reviewed PAST MEDICAL HISTORY Past Medical History: DiagnosisDate -Hypertension SOCIAL HISTORY Social History Socioeconomic History -Marital status: Tobacco Use -Smoking status:Former Types:Cigarettes -Smokeless tobacco:Never Vaping Use -Vaping status:Never Used Substance and Sexual Activity -Alcohol use:Yes -Drug use:Never -Sexual activity:Yes Partners:Female Social Drivers of Health Received from [facility] Safety AND Environment SURGICAL HISTORY History reviewed. No pertinent surgical history. CURRENT MEDICATIONS No outpatient medications have been marked as taking for the 06/28/25 encounter (Hospital Encounter). ALLERGIES No Known Allergies PHYSICAL EXAM VITAL SIGNS: BP 121/70 Pulse 75 Temp 97.3 ?F (36.3 ?C) Resp 17 Ht 5' 2 (1.575 m) Wt 157 lb 10.1 oz (71.5 kg) SpO2 100% BMI 28.83 kg/m? Physical Exam Vitals reviewed. Constitutional: General: He is not in acute distress. Appearance: Normal appearance. HENT: Head: Normocephalic and atraumatic. Nose: Nose normal. Mouth/Throat: Mouth: Mucous membranes are moist. Eyes: Extraocular Movements: Extraocular movements intact. Conjunctiva/sclera: Conjunctivae normal. Neck: Comments: No midline tenderness. Cardiovascular: Comments: Normal rate, regular rhythm. No murmurs. Pulmonary: Comments: Normal effort and breath sounds, not diminished. No respiratory distress, wheezes, rales, or rhonchi. Abdominal: General: Abdomen is flat. Bowel sounds are normal. There is no distension. Palpations: Abdomen is soft. Tenderness: There is no abdominal tenderness. There is no guarding. Musculoskeletal: General: Normal range of motion. Cervical back: Normal range of motion and neck supple. Comments: No midline thoracic or lumbar tenderness. There is tenderness to palpation over the left hip, pain with logroll. Patient has pain when trying to range his left hip through range of motion. There is an obvious deformity. Remainder of major joints and long bones of the extremities intact with no obvious deformity or injury. Skin: General: Skin is warm and dry. Capillary Refill: Capillary refill takes less than 2 seconds. Neurological: General: No focal deficit present. Mental Status: He is alert and oriented to person, place, and time. Psychiatric: Mood and Affect: Mood normal. Behavior: Behavior normal. MEDICATIONS DURING ED COURSE Medications BUPivacaine (PF) (MARCAINE MPF) 0.5 % (5 mg/mL) injection 30 mL (30 mLs Injection Not Given 06/28/252119) acetaminophen (TYLENOL) tablet 650 mg (has no administration in time range) ondansetron (ZOFRAN) injection 4 mg (has no administration in time range) Or ondansetron (ZOFRAN-ODT) disintegrating tablet 4 mg (has no administration in time range) melatonin tablet 3 mg (has no administration in time range) docusate (COLACE) capsule 100 mg (has no administration in time range) pantoprazole (PROTONIX) injection 40 mg (has no administration in time range) 0.9 % sodium chloride infusion (has no administration in time range) ketorolac (TORADOL) injection 15 mg (has no administration in time range) ROPivacaine (PF) (NAROPIN) 5 mg/mL (0.5 %) injection (has no administration in time range) Commonly recognized adverse reactions to above medications were discussed with patient and/or family along with viable medication alternatives. RADIOLOGY/PROCEDURES XR-HIP UNI LEFT 2/3 VIEWS W/PELVIS Final Result 1. Comminuted and displaced intertrochanteric fracture of the left femur with mild varus angulation. This dictation was created with voice recognition software. While attempts (more content not included)...K[facility]tering Health HamiltonMANUAL SCANon 06-28-2025 PLATELET CLUMPSAbsentNormalAbsSumma HealthComment on above:Order Comment: Release to patient->ImmediatePerformed By: #### [id number], [id number] #### [facility] [address] [place] [address] USAManual Reflexon [id number] and review of laboratory resultsNormalKettering HealthPlatelet clump LM Ql (Bld)AbsentAbsent /LPFPremier Health Panel Informationon [id number] Study observation (narrative)[facility] Elbow - left GE 3 Viewson . No acute findings This dictation was created with voice recognition software. While attempts have been made to reviewthe dictation as it is transcribed, on occasion the spoken word can be misinterpreted by the technology leading to omissions or inappropriate words, phrases or sentences. Electronically Signed by: Priyanka Kirkland DO, 06/28/2025 8:12 PM Dictation workstation: [id number] MERLYN IMAGINGEXAM: XR-ELBOW LEFT 3 OR MORE VIEWS [id number] DATE OF SERVICE: 06/28/2025 7:55 pm DEMOGRAPHICS: Age: 84 y/o M HISTORY: Fall fall, swelling of left elbow COMPARISON: No existing relevant imaging study corresponding to the same anatomical region is available. TECHNIQUE: Three view(s) of the left elbow was/were obtained. Total Images: 3 FINDINGS: The osseous structures are intact. The joint spaces are maintained. Soft tissue calcifications are noted adjacent to the proximal ulna on the posterior side. Priyanka Ding, - 06/28/2025 EXAM: XR-ELBOW LEFT 3 OR MORE VIEWS [id number] DATE OF SERVICE: 06/28/2025 7:55 pm DEMOGRAPHICS: Age: 84 y/o M HISTORY: Fall fall, swelling of left elbow COMPARISON: No existing relevant imaging study corresponding to the same anatomical region is available. TECHNIQUE: Three view(s) of the left elbow was/were obtained. Total Images: 3 FINDINGS: The osseous structures are intact. The joint spaces are maintained. Soft tissue calcifications are noted adjacent to the proximal ulna on the posterior side. IMPRESSION: 1. No acute findings This dictation was created with voice recognition software. While attempts have been made to reviewthe dictation as it is transcribed, on occasion the spoken word can be misinterpreted by the technology leading to omissions or inappropriate words, phrases or sentences. Electronically Signed by: Priyanka Kirkland DO, 06/28/2025 8:12 PM Dictation workstation: [id number] [facility] HospitalRadiology Study observation (narrative)[facility] Elbow - left GE 3 ViewsOrdered By: Priyanka Kirkland on [id number] Work Phone: XR Pelvis and Hip - left Viewson . Comminuted and displaced intertrochanteric fracture of the left femur with mild varus angulation. This dictation was created with voice recognition software. While attempts have been made to reviewthe dictation as it is transcribed, on occasion the spoken word can be misinterpreted by the technology leading to omissions or inappropriate words, phrases or sentences. Electronically Signed by: Saúl Saeed DO, 06/28/2025 8:16 PM Dictation workstation: [id number] [employer] IMAGINGEXAM: XR-HIP UNI LEFT 2/3 VIEWS W/PELVIS [id number] DATE OF SERVICE: 06/28/2025 7:56 pm DEMOGRAPHICS: Age: 84 y/o M HISTORY: fall, left hip deformity and pain COMPARISON: No existing relevant imaging study corresponding to the same anatomical region is available. TECHNIQUE: 2 view(s) of the Left hip(s) and a single AP view of the pelvis were obtained. Total Images: 2 FINDINGS: There is a comminuted and displaced intertrochanteric fracture of the left femur. There is medial displacement of the distal fracture fragment. Mild varus angulation. The joint spaces are maintained.There is no significant soft tissue swelling. [facility] Saúl Nj DO - 06/28/2025 EXAM: XR-HIP UNI LEFT 2/3 VIEWS W/PELVIS [id number] DATE OF SERVICE: 06/28/2025 7:56 pm DEMOGRAPHICS: Age: 84 y/o M HISTORY: fall, left hip deformity and pain COMPARISON: No existing relevant imaging study corresponding to the same anatomical region is available. TECHNIQUE: 2 view(s) of the Left hip(s) and a single AP view of the pelvis were obtained. Total Images: 2 FINDINGS: There is a comminuted and displaced intertrochanteric fracture of the left femur. There is medial displacement of the distal fracture fragment. Mild varus angulation. The joint spaces are maintained.There is no significant soft tissue swelling. IMPRESSION: 1. Comminuted and displaced intertrochanteric fracture of the left femur with mild varus angulation. This dictation was created with voice recognition software. While attempts have been made to reviewthe dictation as it is transcribed, on occasion the spoken word can be misinterpreted by the technology leading to omissions or inappropriate words, phrases or sentences. Electronically Signed by: Saúl Saeed DO, 06/28/2025 8:16 PM Dictation workstation: [id number] [facility] HospitalRadiology Study observation (narrative)[facility] HospitalXR Pelvis and Hip - left ViewsOrdered By: Saúl Saeed on 03-04-4786[facility] Work Phone: [phone] LEFT 3 OR MORE VIEWSon [id number]-ELBOW LEFT 3 OR MORE VIEWSEXAM: XR-ELBOW LEFT 3 OR MORE VIEWS [id number] DATE OF SERVICE: 06/28/2025 7:55 pm DEMOGRAPHICS: Age: 84 y/o M HISTORY: Fall fall, swelling of left elbow COMPARISON: No existing relevant imaging study corresponding to the same anatomical region is available. TECHNIQUE: Three view(s) of the left elbow was/were obtained. Total Images: 3 FINDINGS: The osseous structures are intact. The joint spaces are maintained. Soft tissue calcifications are noted adjacent to the proximal ulna on the posterior side. IMPRESSION: IMPRESSION: 1. No acute findings This dictation was created with voice recognition software. While attempts have been made to review the dictation as it is transcribed, on occasion the spoken word can be misinterpreted by the technology leading to omissions or inappropriate words, phrases or sentences. Electronically Signed by: Priyanka Kirkland DO, 06/28/2025 8:12 PM Dictation workstation: [id number] Health HamiltonXR-HIP UNI LEFT 2/3 VIEWS W/PELVISon [id number]-HIP UNI LEFT 2/3 VIEWS W/PELVISEXAM: XR-HIP UNI LEFT 2/3 VIEWS W/PELVIS [id number] DATE OF SERVICE: 06/28/2025 7:56 pm DEMOGRAPHICS: Age: 84 y/o M HISTORY: fall, left hip deformity and pain COMPARISON: No existing relevant imaging study corresponding to the same anatomical region is available. TECHNIQUE: 2 view(s) of the Left hip(s) and a single AP view of the pelvis were obtained. Total Images: 2 FINDINGS: There is a comminuted and displaced intertrochanteric fracture of the left femur. There is medial displacement of the distal fracture fragment. Mild varus angulation. The joint spaces are maintained. There is no significant soft tissue swelling. IMPRESSION: IMPRESSION: 1. Comminuted and displaced intertrochanteric fracture of the left femur with mild varus angulation. This dictation was created with voice recognition software. While attempts have been made to review the dictation as it is transcribed, on occasion the spoken word can be misinterpreted by the technology leading to omissions or inappropriate words, phrases or sentences. Electronically Signed by: Saúl Saeed DO, 06/28/2025 8:16 PM Dictation workstation: [id number] [facility] ECHO DOPPLER COMPLETEon [id number], [place] [address] Cardiology Report Signed Patient: JOO ALLEN MR#: [id number] : 1940 Acct:[id number] Age/Sex: 84 / M ADM Date: 06/02/25 Loc: CARD Attending Dr: VALERIA STOKES APRN Ordering Physician: VALERIA STOKES APRN Date of Service: 06/02/25 Procedure(s): CA echo doppler complete Accession Number(s): [id number] cc: SAI ANDERSON ; VALERIA STOKES APRN Patient Name: JOO ALLEN MR#: [id number] : 1940 Exam Date: 06/02/2025 Ordering Doctor: VALERIA STOKES CNP ECHOCARDIOGRAM REPORT PROCEDURE: CA ECHO DOPPLER COMPLETE INDICATIONS: Tricuspid valve regurgitation, hypertension COMPARISON: None. DESCRIPTION: COMPLETE ECHOCARDIOGRAM Real-time transthoracic echocardiography with 2D, M-mode, spectral and color flow Doppler performed. QUALITY: Technical quality was good. LEFT VENTRICLE: Normal chamber size. Mild left ventricular hypertrophy. LV EF: Global left ventricular systolic function is normal; visually estimated ejection fraction is 60-65%. No wall motion abnormalities. DIASTOLIC: Normal diastolic function. ATRIAL SEPTUM: Visually appears intact. LEFT ATRIUM: Moderate dilatation. RIGHT ATRIUM: Moderate dilatation. RIGHT VENTRICLE: Mild dilatation. Normal systolic function. TRICUSPID VALVE: Normal mobility and thickness. No stenosis with mild regurgitation. No evidence of pulmonary hypertension. RVSP 27 mmHg MITRAL VALVE: Normal mobility and thickness. No evidence of mitral valve stenosis. There is no mitral annular calcification. Mild mitral regurgitation. AORTIC VALVE: Normal trileaflet appearance. Moderately calcified aortic valve. Mildly diminished mobility. No evidence of aortic valve stenosis. DVI 0.6. Mild aortic regurgitation. AORTIC ROOT: Normal diameter and appearance. Ascending aorta and aortic arch are normal in size. PULMONIC VALVE: Normal thickness and mobility. No stenosis. PERICARDIUM: No evidence of pericardial effusion. IVC: Collapses with inspiration. CONCLUSION: 1. Global left ventricular systolic function is normal; visually estimated ejection fraction is 60-65% 2. The right ventricle is mildly dilated with normal systolic function 3. Normal diastolic function 4. Mild left ventricular hypertrophy 5. Biatrial dilatation 6. Mild tricuspid regurgitation 7. Mild mitral regurgitation 8. Mild aortic valve regurgitation Adult Echocardiography Procedure Report Left Ventricle LVEDD (3.7 - 5.6 cm): 5.48 cm LVESD (2.2 - 4.0 cm): 2.90 cm LVIVS thickness (0.6 - 1.2 cm): 1.10 cm LVPW thickness (0.5 - 1.0 cm): 1.18 cm e': 0.11 m/s E - e': 5.94 LVOT Max Gradient: 4.65 mm60- LVOT Area (cm2): 1.08 m/s Peak Velocity (LVOT): 1.08 m/s Mean Velocity (LVOT): 0.73 m/s LVOT Diameter 2.25 cm Left Ventricular Ejection Fraction: 65.82 % Left Atrium LA Volume Index (2D A2C): 46.50 ml/m2 Left Atrium Systolic Dimension: 4.41 cm Mitral Valve MV E to A Ratio: 1.03 Mitral Valve A-Wave Peak Velocity: 0.61 m/s Mitral Valve E-Wave Peak Velocity: 0.63 m/s Right Ventricle Aorta AO Root Diam: 3.43 cm Ascending Ao Diam: 3.32 cm Aortic Valve AoV Area (Peak Vernon): 2.28 cm2, 2.28 cm2 AoV Area (VTI): 2.47 cm2, 2.54 cm2 Deceleration [place]: 3.57 m/s2, 2.15 m/s2 Pressure Half-Time: 379.59 ms, 492.46 ms Peak Velocity(Antegrade Flow): 1.87 m/s, 1.59 m/s, 1.64 m/s Peak Gradient(Antegrade Flow): 14.02 mm[Hg], 10.09 mm[Hg], 10.74 mm[Hg] Mean Velocity(Antegrade Flow): 1.21 m/s, 1.17 m/s, 1.12 m/s Mean Gradient(Antegrade Flow): 6.91 mm[Hg], 6.05 mm[Hg], 5.75 mm[Hg] Velocity Time Integral: 38.66 cm, 39.70 cm, 35.29 cm Tricuspid Valve Peak Velocity (Regurgitant Flow): 2.47 m/s Pulmonic Valve Peak Gradient: 2.82 mm[Hg], 4.20 mm[Hg] Right Atrium Right Atrium Systolic Pressure: 94.47 ml, 94.47 ml Dictated by: Melisa Martinez (more content not included)...TBHRadiology, Radiologist, MD - 06/02/2025 [place] [address] Cardiology Report Signed Patient: JOO ALLEN MR#: [id number] : 1940 Acct:[id number] Age/Sex: 84 / M ADM Date: 06/02/25 Loc: CARD Attending Dr: VALERIA STOKES APRN Ordering Physician: VALERIA STOKES APRN Date of Service: 06/02/25 Procedure(s): CA echo doppler complete Accession Number(s): [id number] cc: SAI ANDERSON ; VALERIA STOKES APRN Patient Name: JOO ALLEN MR#: [id number] : 1940 Exam Date: 06/02/2025 Ordering Doctor: VALERIA STOKES [facility] ECHOCARDIOGRAM REPORT PROCEDURE: CA ECHO DOPPLER COMPLETE INDICATIONS: Tricuspid valve regurgitation, hypertension COMPARISON: None. DESCRIPTION: COMPLETE ECHOCARDIOGRAM Real-time transthoracic echocardiography with 2D, M-mode, spectral and color flow Doppler performed. QUALITY: Technical quality was good. LEFT VENTRICLE: Normal chamber size. Mild left ventricular hypertrophy. LV EF: Global left ventricular systolic function is normal; visually estimated ejection fraction is 60-65%. No wall motion abnormalities. DIASTOLIC: Normal diastolic function. ATRIAL SEPTUM: Visually appears intact. LEFT ATRIUM: Moderate dilatation. RIGHT ATRIUM: Moderate dilatation. RIGHT VENTRICLE: Mild dilatation. Normal systolic function. TRICUSPID VALVE: Normal mobility and thickness. No stenosis with mild regurgitation. No evidence of pulmonary hypertension. RVSP 27 mmHg MITRAL VALVE: Normal mobility and thickness. No evidence of mitral valve stenosis. There is no mitral annular calcification. Mild mitral regurgitation. AORTIC VALVE: Normal trileaflet appearance. Moderately calcified aortic valve. Mildly diminished mobility. No evidence of aortic valve stenosis. DVI 0.6. Mild aortic regurgitation. AORTIC ROOT: Normal diameter and appearance. Ascending aorta and aortic arch are normal in size. PULMONIC VALVE: Normal thickness and mobility. No stenosis. PERICARDIUM: No evidence of pericardial effusion. IVC: Collapses with inspiration. CONCLUSION: 1. Global left ventricular systolic function is normal; visually estimated ejection fraction is 60-65% 2. The right ventricle is mildly dilated with normal systolic function 3. Normal diastolic function 4. Mild left ventricular hypertrophy 5. Biatrial dilatation 6. Mild tricuspid regurgitation 7. Mild mitral regurgitation 8. Mild aortic valve regurgitation Adult Echocardiography Procedure Report Left Ventricle LVEDD (3.7 - 5.6 cm): 5.48 cm LVESD (2.2 - 4.0 cm): 2.90 cm LVIVS thickness (0.6 - 1.2 cm): 1.10 cm LVPW thickness (0.5 - 1.0 cm): 1.18 cm e': 0.11 m/s E - e': 5.94 LVOT Max Gradient: 4.65 mm60- LVOT Area (cm2): 1.08 m/s Peak Velocity (LVOT): 1.08 m/s Mean Velocity (LVOT): 0.73 m/s LVOT Diameter 2.25 cm Left Ventricular Ejection Fraction: 65.82 % Left Atrium LA Volume Index (2D A2C): 46.50 ml/m2 Left Atrium Systolic Dimension: 4.41 cm Mitral Valve MV E to A Ratio: 1.03 Mitral Valve A-Wave Peak Velocity: 0.61 m/s Mitral Valve E-Wave Peak Velocity: 0.63 m/s Right Ventricle Aorta AO Root Diam: 3.43 cm Ascending Ao Diam: 3.32 cm Aortic Valve AoV Area (Peak [place]): 2.28 cm2, 2.28 cm2 AoV Area (VTI): 2.47 cm2, 2.54 cm2 Deceleration [place]: 3.57 m/s2, 2.15 m/s2 Pressure Half-Time: 379.59 ms, 492.46 ms Peak Velocity(Antegrade Flow): 1.87 m/s, 1.59 m/s, 1.64 m/s Peak Gradient(Antegrade Flow): 14.02 mm[Hg], 10.09 mm[Hg], 10.74 mm[Hg] Mean Velocity(Antegrade Flow): 1.21 m/s, 1.17 m/s, 1.12 m/s Mean Gradient(Antegrade Flow): 6.91 mm[Hg], 6.05 mm[Hg], 5.75 mm[Hg] Velocity Time Integral: 38.66 cm, 39.70 cm, 35.29 cm Tricuspid Valve Peak Velocity (Regurgitant Flow): 2.47 m/s Pulmonic Valve Peak Gradient: 2.82 mm[Hg], 4.20 mm[Hg] Right Atrium Right Atrium Systolic Pressure: 94.47 ml, 94.47 ml Dictated by: Jesse Cabrera M.D. on 06/02/2025 at 12:34 Approved by: Jesse Cabrera M.D. on 06/02/2025 at 12:38 Dictated By: Jesse Cabrera M.D. Signed By: 06/02/25 1239 DD/ 1238 TD/TT: Supervisor Engine Repair: [facility] HealthcareRadiology Study observation (narrative)[facility] ECHO DOPPLER COMPLETEOrdered By: Radiologist Radiology on [id number] Work Phone: Orders Onlyon [id number] [id number] Joo Allen 1940 Date Provider Department Center 06/02/2025 [id number], HISTORICAL ALYSIA [facility] Family History Problem Relation Age of Onset Tuberculosis Father Family Status - Relation Status Age at Mother Father DeceasedNormalUniversity Parkwood HospitalOffice Visiton [id number] [id number] Joo Allen 1940 Date Provider Department Center 05/26/2025 166-VALERIA STOKES ALYSIA [facility] Family History Problem Relation Age of Onset Tuberculosis Father Family Status - Relation Status Age at Mother Father Level of Service:83978 PA OFFICE/OUTPATIENT ESTABLISHED LOW MDM 20 MIN Reason for Visit and Comments: Follow-up [715171] - 1 year routine follow up Coronary Artery Disease [187] Hypertension [373141] Bradycardia [911609] Hyperlipidemia [182] First degree AV block [Other] Nonrheumatic mitral valve insufficiency [Other] Nonrheumatic mitral valve regurgitation [Other] Pulmonary Hypertension [818] Renal artery stenosis [Other] Sick sinus Syndrome [Other] Stage 2 chronic kidney disease [Other] Sleep Apnea [348] Obesity [[id number]]NormalSelect Medical Cleveland Clinic [facility], AvonALL LIPID PROFILE (FASTING)on [id number] HDL RATIO1.9NODC HealthcareComment on above:3.3 - 4.4 LOW RISK 4.4 - 7.1 AVERAGE RISK 7.1 - 11.0 MODERATE RISK >11.0 HIGH RISK Cholesterol [Mass/Vol]157 mg/dLNINF - 200 mg/dLNODC HealthcareCholesterol in HDL [Mass/Vol]83 mg/tHHlnw35 - 60 mg/dLNODC HealthcareComment on above:> or =60 mg/dl - LOW CARDIOVASCULAR RISK <40 mg/dl - HIGH CARDIOVASCULAR RISK Magnesium [Mass/Vol]50 mg/dLNODC HealthcareComment on above:<100 mg/dl OPTIMAL 100-129 mg/dl NEAR OR ABOVE OPTIMAL 130-159 mg/dl BORDERLINE HIGH 160-189 mg/dl HIGH >190 mg/dl VERY HIGH Triglyceride [Mass/Vol]123 mg/dLNINF - 150 mg/dLNODC HealthcareVLDL CHOLESTEROL 24.6 mg/dLNODC HealthcareCCF CMP (CMP) (FOR REMOTE [facility] USE)on [id number] [Mass/Vol]3.7 g/dL3.4 - 5.0 g/dLNODC HealthcareALBUMIN GLOBULIN RATIO1.2NOMS HealthcareALP [Catalytic activity/Vol]80 U/L46 - 116 U/LNOMS HealthcareALT [Catalytic activity/Vol]39 U/L16 - 63 U/LNOMS HealthcareAnion gap [Moles/Vol] 12.5 mmol/LNOMS HealthcareAST [Catalytic activity/Vol]35 U/L15 - 37 U/LNOMS HealthcareBilirubin [Mass/Vol]0.7 mg/dL0.2 - 1.0 mg/dLNODC HealthcareCalcium [Mass/Vol]8.7 mg/dL8.5 - 10.1 mg/dLNODC HealthcareChloride [Moles/Vol]97 mmol/L Low98 - 107 mmol/LNOMS HealthcareCO2 [Moles/Vol]26 mmol/L21.0 - 32.0 mmol/LNOMS HealthcareCreatinine [Mass/Vol]1.07 mg/dL0.70 - 1.30 mg/dLNODC Healthcare GFR/1.73 sq M.predicted CKD-EPI (S/P/Bld) [Vol rate/Area]>60>=60 mL/min/1.73m 2 N[facility]S HealthcareGlobulin (S) [Mass/Vol]3 g/dLNOThree Rivers HealthcareGlucose [Mass/Vol]89 mg/dL74 - 106 mg/dLNODC HealthcarePotassium [Moles/Vol]4.5 mmol/L3.5 - 5.1 mmol/LNOMS HealthcareProtein [Mass/Vol]6.7 g/dL6.4 - 8.2 g/dLNODC Healthcare Sodium [Moles/Vol]131 mmol/MBds539 - 145 mmol/LNOMS HealthcareTBH EGFR-NON AF TURKS AND CAIC[place] ISLANDER>60>=60 mL/min/1.73m 2NOMS HealthcareUrea nitrogen [Mass/Vol]13 mg/dL7.0 - 18.0 mg/dLNODC HealthcareUrea nitrogen/Creatinine [Mass ratio]12.1 mg/mgNODC HealthcareNo Panel Informationon [id number] and review of laboratory resultsAbTrinity Health Grand Rapids HospitalCLINISYNCNWEATHERFORD REGIONAL HOSPITAL – WEATHERFORD HealthcareLIPID PROFILEon [id number]-HDL RATIO [facility]'s Medical CenterComment on above:Result Comment: 3.3 - 4.4 LOW RISK 4.4 - 7.1 AVERAGE RISK 7.1 - 11.0 MODERATE RISK >11.0 HIGH RISKPerformed By: #### LIPID, CMP #### [facility] [address] [address] [address] Yessica Szymanskiesterol [Mass/Vol]172 mg/dLNormal<=200[facility] Comment on above:Performed By: #### LIPID, CMP #### [facility] [address] [place], [place] [address] Dr. Yessica Szymanskiesterol in HDL [Mass/Vol]74 mg/dLCritically eziu36-37UvpSelect Medical Cleveland Clinic Rehabilitation Hospital, AvonComment on above:Performed By: #### LIPID, CMP #### [facility] [address] [place] [address] Dr. Yessica RodriguezCholesterol in LDL [Mass/Vol]79.4 mg/dLNoSelect Medical Specialty Hospital - Southeast OhioComment on above:Performed By: #### LIPID, CMP #### [facility] [address] [place] [address] Dr. Yessica Jarquin.total/Cholesterol in HDL [Mass ratio]2.3 {ratio} NormalSelect Medical Cleveland Clinic Rehabilitation Hospital, AvonComment on above:Performed By: #### LIPID, CMP #### [facility] [address] [place] [address] Dr. Yessica Munoz NORMAL> or = 60 mg/dl - LOW CARDIOVASCULAR RISK <40 mg/dl - HIGH CARDIOVASCULAR RISKNoSelect Medical Specialty Hospital - Southeast OhioComment on above:Performed By: #### LIPID, CMP #### [facility] [address] [place] [address] Dr. Yessica Bowie CALC NORMALSEE BELOWThe MetroHealth SystemComment on above:Result Comment: <100 mg/dl OPTIMAL 100 - 129 mg/dl NEAR OR ABOVE OPTIMAL 130 - 159 mg/dl BORDERLINE HIGH 160 - 189 mg/dl HIGH >190 mg/dl VERY HIGH Performed By: #### LIPID, CMP #### [facility] [address] [place] [address] Dr. Yessica RodriguezTriglyceride [Mass/Vol]93 mg/dLNormal<=150The [facility] Comment on above:Performed By: #### LIPID, CMP #### [facility] [address] [place] [address] Dr. Yessica RodriguezVLDL CALC18.6 mg/dLNoSelect Medical Specialty Hospital - Southeast OhioComment on above: Performed By: #### LIPID, CMP #### [facility] [address] [place] [address] Dr. Yessica RodriguezPROF 14(COMP METB)on 78-82-0541Iutkwsc [Mass/Vol]4.0 g/dLNormal 3.4-5.0The [facility] HospitalComment on above:Performed By: #### LIPID, CMP #### [facility] [address] [place] [address] Dr. Yessica RodriguezAlbumin/Globulin [Mass ratio]1.4 {ratio}NormalThe [facility] HospitalComment on above:Performed By: #### LIPID, CMP #### [facility] [address] [place] [address] Dr. Yessica Flores [Catalytic activity/Vol]66 U/NBdimqm98-682Msl [facility] HospitalComment on above:Performed By: #### LIPID, CMP #### [facility] [address] [place] [address] Dr. Yessica Cota [Catalytic activity/Vol]34 U/AWkddjy13-57Ddn [facility] HospitalComment on above:Performed By: #### LIPID, CMP #### [facility] [address] [place] [address] Dr. Yessica Segura gap [Moles/Vol]9.0 mmol/LNormalThe [facility] HospitalComment on above:Performed By: #### LIPID, CMP #### [facility] [address] [place] [address] Dr. Yessica Ortez [Catalytic activity/Vol]30 U/AQvtzta28-02Csf [facility] HospitalComment on above:Performed By: #### LIPID, CMP #### [facility] [address] [place] [address] Dr. Yessica RodriguezBilirubin [Mass/Vol]0.9 mg/dLNormal0.2-1.0The [facility] Comment on above:Performed By: #### LIPID, CMP #### [facility] [address] [place] [address] Dr. Yessica RodriguezCalcium [Mass/Vol]8.9 mg/dLNormal8.5-10.1The [facility] Comment on above:Performed By: #### LIPID, CMP #### [facility] [address] [place] [address] Dr. Yessica RodriguezChloride [Moles/Vol]101 mmol/AUzcjmr96-735Ovr [facility] Comment on above:Performed By: #### LIPID, CMP #### [facility] [address] [place] [address] Dr. Yessica RodriguezCO2 [Moles/Vol]30.7 mmol/CVbqyrq49.0-32.0The [facility] Comment on above:Performed By: #### LIPID, CMP #### [facility] [address] [place] [address] Dr. Yessica RodriguezCreatinine [Mass/Vol]1.06 mg/dLNormal0.70-1.30The [facility] HospitalComment on above:Performed By: #### LIPID, CMP #### [facility] [address] [place] [address] Dr. Yessica RendonGFR-AF TURKS AND CAICOS ISLANDER>60Normal>=60The [facility] HospitalComment on above:Performed By: #### LIPID, CMP #### [facility] [address] [place] [address] Dr. Yessica RendonGFR-NON AF TURKS AND CAICOS ISLANDER>60Normal>=60The [facility] HospitalComment on above:Performed By: #### LIPID, CMP #### [facility] [address] [place] [address] Dr. Yessica RodriguezGlobulin (S) [Mass/Vol]2.9 g/dLNormalThe [facility] HospitalComment on above:Performed By: #### LIPID, CMP #### [facility] [address] [place] [address] Dr. Yessica RodriguezGlucose [Mass/Vol]96 mg/kMQedlui50-183Owp [facility] Comment on above:Performed By: #### LIPID, CMP #### [facility] [address] [place] [address] Dr. Yessica RodriguezPotassium [Moles/Vol]3.7 mmol/LNormal3.5-5.1The [facility] Comment on above:Performed By: #### LIPID, CMP #### [facility] [address] [place] [address] Dr. Yilan ChangProtein [Mass/Vol]6.9 g/dLNormal6.4-8.2The [facility] Comment on above:Performed By: #### LIPID, CMP #### [facility] [address] [address] [address] Yessica RodriguezSodium [Moles/Vol]137 mmol/RGyuckc678-953Moe [facility] Comment on above:Performed By: #### LIPID, CMP #### [facility] [address] [id number] [address] Yessica RodriguezUrea nitrogen [Mass/Vol]13.0 mg/dLNormal7.0-18.0The [facility] HospitalComment on above:Performed By: #### LIPID, CMP #### [facility] [address] [address] [address] Yessica Brown nitrogen/Creatinine [Mass ratio]12.3 mg/mgNormalThe [facility] HospitalComment on above:Performed By: #### LIPID, CMP #### [facility] [address] [address] [address] Yessica RodriguezCardiovascular Lab Reporton 07-72-0805Snnpfpvzrquznr Lab Report [facility] Patient Name: [facility] A MR #: [id number] Department of Physician: Helen Martinez M.D. Division of Service Date: 07/05/2021 Cardiology Birthdate: 1940 Adult Cardiovascular Room #: [place] [address] Cardiovascular Laboratory Report IMPRESSIONS: 1. 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 2. Ylri-ti-vwhlbwyq disease of the left anterior descending coronary [...] bilateral selective coronary angiography, placement of a 6-Angolan MynxGrip closure device. METHODS: After risks, benefits, and alternatives were explained, written informed consent was obtained. The patient was prepped and draped in usual sterile fashion over both groins. Using 1% lidocaine solution, local infiltration anesthesia was achieved. Using the modified Seldinger technique and a micropuncture kit, access of the right common femoral artery was obtained. A 6-Angolan 11 cm sheath was inserted without difficulty. Angiography via the femoral sheath was performed. Bilateral selective coronary angiography was performed using JL4 and JR4 catheters. After reviewing the images, it was elected to conclude the procedure. All catheters were removed. A 6-Angolan MynxGrip closure device was deployed per protocol [...] Cabrera M.D. Date Trans: 07/06/2021 02:39 A/laina DN_JN:[id number] Hospital Vital Signs Date TimeVital SignValuePerforming FhgovoiooBmcvnkzh84-36-7732 10:03-0400 Respiratory rate16 /minKevin Menschel DO Work Phone: 1([phone] [place], [place] [address]10-17-2025 09:08-0400Body temperature 98.1 [degF]Ramez Menschel DO Work Phone: 1(840)5-[address] [place], [place] [address]1110-17-2025 09:08-0400Diastolic blood neaqrljx83 mm[Hg]Ramez Menschel DO Work Phone: 1(356)[facility] [place] [address]-17-2025 09:08-0400Heart rate76 /min Ramez Menschel DO Work Phone: 1(486)4-[address] [place], [place] [address]10-17-2025 09:08-6911ImH6% (BldA) [Mass fraction]97 %Ramez Menschel DO Work Phone: 0(826)[facility] [place] [address]-17-2025 09:08-0400Systolic blood szmefrah668 mm[Hg]Ramez Menschel DO Work Phone: 8(025)762-[address] [place] [address]-13-2025 22:00-0400Body uiglsx042.5 cmGalileovin Menschel DO Work Phone: 3([phone] [place] [address]-13-2025 22:00-0400Body mass index (BMI) [Ratio]28.83 kg/f9Wzims Menschel DO Work Phone: 9(957)0-[address] [place] [address]-13-2025 22:00-0400Body pfibbq26.5 kgGalileocarmen Riveral DO Work Phone: [facility]07-08-2025 10:24-0400Body .6 Flor Anderson MD Work Phone: [phone] [place], [place] [address]Wyrhqrwsla06-41-8500 10:24-0400Body mass index (BMI) [Ratio]26.31 kg/y8AcqfenSai Anderson MD Work Phone: 1(843)[address] [place], [place] [address]Zeskythrfk93-89-5850 10:24-0400Body idpadb49.94 kgSai Anderson MD Work Phone: 1(499)[address] [place], [place] [address]Ilyvyoicxd76-53-8592 10:24-0400Diastolic blood hvsvfymr80 mm[Hg]Sai Anderson MD Work Phone: 1(281)[address] [place], [place] [address]Wokclegrtb07-92-9851 10:24-0400Heart rate84 /min Sai Anderson MD Work Phone: 1(058)[address] [place], [place] [address]Cnobayjnro26-84-4883 10:24-2888XjO5% (BldA) [Mass fraction]98 %Sai Anderson MD Work Phone: 1(119)[address] [place], [place] [address]Ozzfjzyebu96-55-8419 10:24-0400Systolic blood dtuzydow688 mm[Hg]Sai Anderson MD Work Phone: [phone] FultonPgoobyvmgg41-43-6598 08:53-0400Body .6 Flor Anderson MD Work Phone: 1(121)[address]05-15-2025 08:53-0400Body mass index (BMI) [Ratio]26.47 kg/s4WhpltkSai Anderson MD Work Phone: 1(484)[address] [place], [place] [address]Urqintvlll80-35-3350 08:53-0400Body ikgfuq15.39 kgSai Anderson MD Work Phone: 1(524)[address]05-15-2025 08:53-0400Diastolic blood hlyknqig66 mm[Hg]Sai Anderson MD Work Phone: 1(925)[address]05-15-2025 08:53-0400Heart rate76 /min Sai Anderson MD Work Phone: [facility] FultonYbpmfyqiix59-53-6862 08:53-2324HnA8% (BldA) [Mass fraction]99 %Sai Anderson MD Work Phone: [facility] FultonGqdstyuwgq00-74-4098 08:53-0400Systolic blood dgmavgxp279 mm[Hg]Sai Anderson MD Work Phone: 1(505)[facility] [place], [place] [address]Xlnwmrbmno44-17-9779 13:57-0500Body otubbn147.6 cmEjitendra Anderson MD Work Phone: 1(344)[facility] [address]Twxjwixywa69-02-7522 13:57-0500Body mass index (BMI) [Ratio]26.47 kg/h8PvkizgSai Anderson MD Work Phone: [phone] FultonHicvradrhq72-37-2108 13:57-0500Body hobvrx23.39 kgSai Anderson MD Work Phone: 1(931)[facility]6008[facility] FultonZaoalwypqz31-01-8451 13:57-0500Diastolic blood zxtbgqus40 mm[Hg]Sai Anderson MD Work Phone: [facility] FultonXhlhmtunhc28-43-7501 13:57-0500Heart rate71 /min Sai Anderson MD Work Phone: [facility] FultonUuwtljrwty20-15-7627 13:57-4840NuM0% (BldA) [Mass fraction]98 %Sai Anderson MD Work Phone: [address] [address]Lkokmtdkdr18-14-6419 13:57-0500Systolic blood duccqaop704 mm[Hg]Sai Anderson MD Work Phone: [facility] Healthcare Encounters Encounter DateEncounter TypeCare ProviderFacilityStart: 07-07-2025 End: 33-34-2249kgkwwpmancJQFWEE J HEMEYERNot AvailableStart: 07-07-2025 End: 69-73-8566Czbkxz flowsheetSai Anderson MD Work Phone: [facility] [address] Family MedicineStart: 07-07-2025 End: 45-90-1331Oimooy flowsMae Anderson MD Work Phone: [facility] [address] Family MedicineStart: 07-05-2025 End: 97-82-1977Sbejoaxdq encounterFlorencia Rinaldi SERAFINOhio[facility] Orthopedics 4 MainStart: 85-27-8180Nurimmwhcv and management of inpatientEDELIDA Ann [facility] Hospitaltart: 70-87-2183Nhtkrxcbw department patient visitEDELIDA Ann [facility] Hospitaltart: 06-28-2025 End: 17-77-5406Ternylyvfx and management of inpatientRamez Brambilaburke ESCALANTE Work Phone: [facility] Orthopedics 4 MainComment on above:Intertrochanteric fracture, closed, left, initial encounter (HCC) (Primary Dx); Fall from standing, initial encounter; Hyponatremia; Closed left hip fracture, initial encounter (HCC)Start: 46-01-5627Edrlnlnwg department patient visitEDELIDA Ann [facility] Hospitaltart: 06-02-2025 End: 70-81-4758Bszeqajpd Result EncounterGeneric External Data ProviderNOMS External Department UnsolicitedStart: 06-02-2025 End: 34-03-5237Azbdskyqf Result EncounterGeneric External Data ProviderNOMS External Department UnsolicitedStart: 05-26-2025 End: 88-29-2215jyfastrqgoNFUYNRFNewark Hospitaltart: 03-23-2025 End: 67-80-3715Jozage Ge Anderson MD Work Phone: [facility] CI FM 100Start: 03-23-2025 End: 15-74-1439Rqdaro Ge Anderson MD Work Phone: [facility] CI FM 100Start: 03-23-2025 End: 81-55-6226Efriojx encounter procedureSai Anderson MD Work Phone: [facility] CI FM 100Comment on above:Encounter for Medicare annual wellness exam (Primary Dx); Advance directive in chart; Encounter for screening for other disorder; Screening for alcohol problem; Over weight; Sick sinus syndrome (HCC); Pulmonary hypertension (HCC); Arthritis of carpometacarpal (CMC) joint of right thumbStart: 03-23-2025 End: 14-53-3376pzbkqbiiudNGAZMDCaridad Viera AvailableStart: 01-28-2025 End: 24-32-2875Dbcphq flowsMae Anderson MD Work Phone: [facility] CI FM 100Start: 01-28-2025 End: 05-56-7196Mimdrp Ge Anderson MD Work Phone: [facility] CI FM 100Start: 01-28-2025 End: 59-67-9750Egrhxv outpatient visit 25 minutesEdelida Anderson MD Work Phone: [facility] CI FM 100Comment on above:Essential hypertension (CMS/HCC); Mixed hyperlipidemia (CMS/HCC); Hypertensive nephropathy (CMS/HCC); Stage 2 chronic kidney disease; Microalbuminuria; Gastroesophageal reflux disease without esophagitisStart: 01-28-2025 End: 44-57-7454lrkvsnhguiFFNMNL J HEMEYERNot AvailableStart: 01-22-2025 End: 96-30-8396Dpanjgmoh Result EncounterEdelida Anderson MD Work Phone: [facility] External Department UnsolicitedStart: 01-22-2025 End: 01-37-7145Mnjdltvlu Result Laura Anderson MD Work Phone: NOGE External Department UnsolicitedStart: 01-04-2025 End: 00-21-1332YslcsrFiqmsp J Hemeyer MD Work Phone: [facility] CI FM 100Comment on above:Mixed hyperlipidemia (CMS/HCC); Essential hypertension (CMS/HCC)Start: 08-03-2024 End: 71-61-8136Fqpsxh Ge Anderson MD Work Phone: [facility] CI FM 100Start: 08-03-2024 End: 22-42-4767Okkpml Ge Anderson MD Work Phone: noMS CI FM 100Start: 08-03-2024 End: 17-24-6255Rncrfz outpatient visit 25 minutesEdelida Anderson MD Work Phone: noMS CI FM 100Comment on above:Essential hypertension (CMS/HCC) (Primary Dx); Hypertensive nephropathy (CMS/HCC); Stage 3a chronic kidney disease (HCC) (CMS/HCC); Microalbuminuria; Mixed hyperlipidemia (CMS/HCC); Gastroesophageal reflux disease without esophagitis; Arthritis of carpometacarpal (CMC) joint of right thumb; Over weight; Nonrheumatic aortic valve insufficiency; Nonrheumatic mitral valve regurgitation; Coronary arteriosclerosis (CMS/HCC)Start: 08-03-2024 End: 39-44-1044jrrnitnevmLHUAGK J HEMEYERNot AvailableStart: 06-04-2024 End: 45-92-9374AlakczQiqvzj J Hemeyer MD Work Phone: noMS CI FM 100Comment on above:Essential hypertension (CMS/HCC); Mixed hyperlipidemia (CMS/HCC); Gastroesophageal reflux disease without esophagitisStart: 08-15-2022 End: 97-93-2490rbkyyphxmnYT DOUGLAS HOYFacility:A4Wnldp: 07-18-2022 End: 11-35-0455vrblujvpidED EDWARD HEMEYERFacility:K9Zukoa: 07-05-2021 End: 08-45-6885dsoydzeuagWDWARZPN SELFFacility:[facility] Procedures DateProcedureProcedure DetailPerforming ClinicianStart: 37-91-8686Xxhac metabolic panel calcium totalHema Sera Carrillo MD Work Phone: Start: 94-35-9181Elpoe metabolic panel calcium total Baljinder Sera Carrillo MD Work Phone: Start: 37-14-5379Uuyuh hip unilateral with pelvis 1 viewZachary Doug Ramsey DO Work Phone: Start: 06-29-2025 End: 34-97-0593MCHMERPTO, INTRAMEDULLARY MANUEL, FEMUR, ANTEGRADEZachary Doug Ramsey DO Work Phone: Start: 06-29-2025 End: 37-27-1514Cksxosti screenRamez Denney DO Work Phone: Comment on above:Order Comment: Release to patient->ImmediatePerformed By: #### [id number] #### [place] [address] USAStart: 41-13-2314MRQ typingJoseph S Balbina DO Work Phone: Start: 80-32-8693Jnadi metabolic panel calcium total Luis Lionel Colladosain RECOVERY AGENT-HEALTH POLICY NURSE Work Phone: Start: 14-81-6474ZIAIVIYVCXU CARE PER PROTOCOLSyed Taqi Nael RECOVERY AGENT-HEALTH POLICY NURSE Work Phone: Start: 06-28-2025 End: 35-83-8769Wwrva elbow complete minimum 3 viewsKecarmen Riveral DO Work Phone: Start: 42-23-1402Fb cervical spine w/o contrast materialRamez Riveral DO Work Phone: Start: 19-00-8602Rq head/brain w/o contrast material Ramez Rvieral DO Work Phone: Start: 83-01-0849Heazclfjovejb metabolic panelRamez Denney DO Work Phone: Start: 08-63-6348GG ECHO DOPPLER COMPLETEGeneric External Data ProviderStart: 18-11-5673PSQ LIPID PROFILE (FASTING)Sai Anderson MD Work Phone: Start: 11-54-8213WWF CMP (CMP) (FOR REMOTE [facility] USE) Sai Anderson MD Work Phone: Plan of Treatment DateCare ActivityDetailAuthorStart: 02-29-7311Apylb diphtheria, tetanus and acellular pertussis (DTaP) vaccinationDTaP,Tdap,and Td Vaccine (2 - Tdap) [facility] HospitalStart: 07-08-2026Medicare Annual Wellness (AWV)Medicare Annual Wellness (AWV)[facility] HealthcareStart: 07-27-2025 End: 18-49-0767Wyommkj encounter procedureNOMS CI FM 100Start: 07-07-2025 End: 22-59-1291Mrnfgnn encounter /22/2025 4:00 PM EDT Office Visit [facility] [address] [facility] [address] [facility] 100 [place] [address] Sai Anderson MD 112 [facility] 100 [place] [address] (Fax) Encounter for examination following treatment at hospital; Post-operative state; Closed displaced intertrochanteric fracture of left femur, sequela; Closed fracture of left hip, sequela; Fall from standing, sequela; Over weightNOLawton Indian Hospital – [facility] 100 [facility] CenterComment on above:Encounter for examination following treatment at hospital; Post-operative state; Closed displaced intertrochanteric fracture of left femur, sequela; Closed fracture of left hip, sequela; Fall from standing, sequela; Over weightStart: 32-82-2607Uudfjhagw vaccinationNODC HealthcareStart: 03-23-2025 End: 35-67-8018Dlaadgw encounter /08/2025 9:30 AM EDT Office Visit [facility] 100 112 [facility] 100 [place] [address] Sai Anderson MD [address] [address] (Fax) Encounter for Medicare annual wellness exam; Advance directive in chart; Encounter for screening for other disorder; Screening for alcohol problem; Over weight; Sick sinus syndrome (HCC)[facility] CI FM 100Comment on above:Encounter for Medicare annual wellness exam; Advance directive in chart; Encounter for screening for other disorder; Screening for alcohol problem; Over weight; Sick sinus syndrome (HCC)Start: 06-03-2025Medicare Annual Wellness (AWV)Medicare Annual Wellness (AWV)[facility] HealthcareStart: 41-85-3790Grizaimefywx Vaccine: 65+ Years (1 of 2 - PCV)Pneumococcal Vaccine: 65+ Years (1 of 2 - PCV)[facility] HealthcareComment on above:Postponed from 1945 (Patient Refused)Postponed from 1958 (Patient Refused)Start: 01-28-2025 End: 88-18-8386Tiqthdm encounter procedureNOMS CI FM 100Comment on above: Essential hypertension (CMS/HCC); Mixed hyperlipidemia (CMS/HCC); Hypertensive nephropathy (CMS/HCC); Stage 3a chronic kidney disease (HCC) (CMS/HCC); Microalbuminuria; Gastroesophageal reflux disease without esophagitisStart: 08-04-2024 End: 93-95-9006Vuyivye encounter zrslsmeod65/19/2024 9:30 AM EST Office Visit [facility] [address] [address] Sai Anderson MD [address] [place] [address] (Fax)[facility] CI FM 100Start: 08-03-2024 End: 30-29-2704Sqdvbws encounter slqbucfpc84/18/2024 2:00 PM EST Office Visit [facility] [address] [address] Sai Anderson MD [address] [address] (Fax) Essential hypertension (CMS/HCC); Hypertensive nephropathy (CMS/HCC); Stage 2 chronic kidney disease; Microalbuminuria; Mixed hyperlipidemia (CMS/HCC); Gastroesophageal reflux disease without esophagitis; Arthritis of carpometacarpal (CMC) joint of right thumb; Over weightNOMS CI FM 100Comment on above:Essential hypertension (CMS/HCC); Hypertensive nephropathy (CMS/HCC); Stage 2 chronic kidney disease; Microalbuminuria; Mixed hyperlipidemia (CMS/HCC); Gastroesophageal reflux disease without esophagitis; Arthritis of carpometacarpal (CMC) joint of right thumb; Over weightStart: 95-23-0724Qfjaqfmoh vaccinationInfluenza Vaccine (#1)[facility] HealthcareStart: 78-90-5318Cronjv Shingles Vaccine (Sequential) (1 of 2)Zoster Shingles Vaccine (Sequential) (1 of 2)[facility] HospitalStart: 1959 Pneumococcal Vaccine: 50+ Years (1 of 2 - PCV)Pneumococcal Vaccine: 50+ Years (1 of 2 - PCV)[facility] HospitalStart: 21-61-1045Qzvdemwzpiaf Vaccine: 65+ Years (1 of 2 - PCV)Pneumococcal Vaccine: 65+ Years (1 of 2 - PCV)[facility] FultonStart: 57-52-8819LdiocnclReston Hospital Center ExamMedina HospitalCBC W/DIFFCBC W/DIFF Lab Routine Lab AM Daily Draw until discontinued starting 07/01/2025, 2 completed [facility] HospitalComscheurer hospital on above:Lab AM Daily Draw until discontinued starting 07/01/2025, 2 completedRT CPAP Per Home RegimenRT CPAP Per Home Regimen Respiratory Care Routine HS with Q4H checks until discontinued starting [facility] Work Phone: comment on above:HS with Q4H checks until discontinued starting 06/30/2025[employer] 5in Wheels (front) Equipment Routine Fall from standing, initial encounter Intertrochantericfracture, closed, left, initial encounter (HCC) Hyponatremia Closed left hip fracture, initial encounter (HCC) Ordered: 06/30/2025[facility] Work Phone: Comment on above:Ordered: 06/30/2025 Immunizations Immunization DateImmunizationNotesCare OueujnajFkkttqmz53-85-1008Raievyy SARS-CoV-2 VaccinationSai Anderson MD Work Phone: [facility] FultonKpmvgpycbt68-77-9394jxkvrxpsu, injectable, quadrivalent, preservative freeSai Anderson MD Work Phone: [facility] FultonOyzwhsifym22-53-7922fneoepyxf virus vaccine, unspecified formulationSai Anderson MD Work Phone: [facility] FultonHnfysydgmk27-51-8669Txixrwute, Seasonal, Quadrivalent, AdjuvantedEdelida Anderson MD Work Phone: [facility] FultonKqectgktmu20-68-7003uhjvihinod, tetanus toxoids and acellular pertussis Tye Anderson MD Work Phone: [facility] Payers DatePayer CategoryPayerPolicy ID2021Medicare (Managed Care)[employer] [id number] 2021Medicare HMODEVOTUSCAR[facility] [id number] HEALTH [employer] [id number] 2020-Present [address] [place] [address] [id number] [id number] Boaw-[id number] 2.16.840.1.716771.3.579.2.64986-87-7891Zhoyird [id number] 2.16840.1.737044.3.57[id number] 2.16840.1.247332.3.57[id number] 2.16.840.1.760944.3.57[id number] 2.16.840.1.970886.3.57[id number] 2.16.840.1.851336.3.57[id number] 2.16.840.1.927491.3.57[id number] 2.16.840.1.511135.3.57[id number] 2.16.840.1.048006.3.57[id number] 2.16.840.1.661261.3.57[id number] 2.16.840.1.043168.3.57[id number] 2.16.840.1.649224.3.57[id number] 2.16.840.1.33[id number] 2.16.840.1.472306.3.579.2.593 Social History DateTypeDetailFacilityStart: 38-40-0579Soisoow smoking status NHISNever smoked tobaccoNOMS HealthcareStart: 02-26-2023 End: 66-69-4258Dqqpmwz use and exposureSmokeless tobacco non-userNOMS Healthcare Start: 02-17-2024 End: 74-74-8444Sppyhtqcf beverage intakeCurrent drinker of alcohol (finding)[facility] HealthcareStart: 02-17-2024 End: 13-86-8767Iqnmnqtxy beverage intakeSPANISH FORK [facility]OS[facility]ITAL HealthcareStart: 02-17-2024 End: 78-14-6916Dckcawb use panelFulton Medical Center- FultonStart: 65-20-6800Nxl assigned at birthNot on fileSPANISH FORK HOSPITAL HealthcareStart: 13-84-4922Iacwgdi smoking status NHIS Ex-smokerMedina HospitalHistory of tobacco useCurrent smokerMedina Hospital History of tobacco useCigarette SmokerMedina HospitalHow often do you have a drink containing alcohol?4 or more times a weekMedina HospitalHow many standard drinks containing alcohol do you have on a typical day?3 or 4Ketmetrohealth main campus medical center Health How often do you have 6 or more drinks on 1 occasion?WeeklyMedina Hospital Start: 11-28-2022 End: 00-56-1504DltRnweRfoplmzin Health Medical Equipment Procedure CodeEquipment CodeEquipment Original TextEquipment IdentifierDates Femoral Nail Ccd 130 Degrees Long Blue Left+[id number], [id number] FDAStart: 46-44-6462Jcljd Lag Z Nail 10.5x110 +[id number], [id number]_imp FDAStart: 34-20-0321Ofabg Wil Z Nail Fa 5.0x55+[id number], [id number]_imp FDAStart: 06-29-2025 Functional Status XuzyXakhppklaoHxzjfwYsrblqbh28-64-0933Kbfoh score [AUDIT-C]8 06/28/2025 10:14 PM EDT Wendy Banks RNMedina HospitalLdloqn34-11-5267Mya you deaf, or do you have serious difficulty hearingNo 06/28/2025 10:12 PM EDT Wendy Banks RN No [facility] HospitalVmdqcv42-20-0157Msd you blind, or do you have serious difficulty seeing, even when wearing glassesNo 06/28/2025 10:12 PM EDT Wendy Banks RN No [facility] HospitalKymbkf23-72-7231Rq you have serious difficulty walking or climbing stairsNo 06/28/2025 10:12 PM EDT Wendy Banks RN [facility]10-13-2025Do you have difficulty dressing or bathingNo 06/28/2025 10:12 PM EDT Wendy Banks RN [facility] CenterCevdxd96-96-5983Xxpckma of a physical, mental, or emotional condition, do you have difficulty doing errands alone such as visiting a physician's office or shoppingNo 06/28/2025 10:12 PM EDT Wendy Banks RN [facility] HospitalDwycxi84-34-5274Obofmae Health Questionnaire 2 item (PHQ-2) [Reported] [facility]- FultonBcetmmorrr08-59-5700Frzllbh Health Questionnaire 2 item (PHQ-2) [Reported] [facility] [place] Mental Status DrbfNnnpffmmcuPcpxpkLsgtsthl07-93-9140Qnnldkx of a physical, mental, or emotional condition, do you have serious difficulty concentrating, remembering, or making decisionsNo 06/28/2025 10:12 PM EDT Wendy Banks RN [facility] Clinical Notes 08-03-2024 to 07-05-2025 Note Date & PzvfWkbvPipvjkfr51-03-1781 Telephone encounter Note* Telephone Encounter - Florencia Rinaldi RN - 07/05/2025 6:20 PM EDT Discharge Follow Up Phone Call Complete No concerns at this time. Discharge medications obtained with no reported side effects. Follow up appointment has not been scheduled; waiting for call back from office. [facility] has been in contact. [facility]10-20-2025 Miscellaneous Notes* Telephone Encounter - Florencia Rinaldi RN - 07/05/2025 6:20 PM EDT Discharge Follow Up Phone Call Complete No concerns at this time. Discharge medications obtained with no reported side effects. Follow up appointment has not been scheduled; waiting for call back from office. [facility] has been in contact. documented in this encounterMedina Hospital10-17-2025 NoteEncounter Department: [facility] ACUTE CARE ORTHOPEDICS 4 MAIN Progress Notes by Naun Nguyen PTA at 07/02/2025 12:33 PM Author: Naun Nguyen PTAService: PT TreatmentAuthor Type: Diamond Sander Filed: 07/02/2025 12:34 PMDate of Service: 07/02/2025 12:33 PMStatus: Signed Clerk Operator: Naun Nguyen PTA (Diamond Sander)Cosigner: Christianne Dennis PT, DPT at 07/02/2025 1:17 PM Physical Therapy Treatment Admit date: 06/28/2025 Today's Date: 07/02/2025 Patient Name/MR#: Joo Allen [id number] [address] Admitting Diagnosis: Closed left hip fracture, initial encounter ([facility]) [S72.002A] Fall from standing, initial encounter [W19.XXXA] Intertrochanteric fracture, closed, left, initial encounter ([facility]) [S72.142A] Admitting Provider: Philip Farias MD PT Discharge Recommendations 1. Physical Therapy services recommended to continue after discharge: Yes 2. Supervision for safety required: Caregiver will need to provide multimedia teacher supervision: Unobserved for brief periods of time only but not left alone 3. Physical Assistance required for daily care: Caregiver will need to provide minimum physical assistance: Caregiver will need to supply 1-25% of physical assistance 4. PT Discharge Equipment Needs if Returning Home: Front Wheeled Walker DME Justification for Recommended Equipment -Walker -Standard Patient has a mobility limitation that significantly impairs their ability to participate in one or more MRADLS such as toileting, feeding, dressing, grooming, and bathing in the home and in a reasonable timeframe. This limitation is resolved with the use of the walker The patient is able to safely use the walker Functional Outcomes/Testing and Reporting Basic Mobility: AM-PAC 6 Clicks:19 General - Subjective: I hope I can go home today - Current Medical Status: Pt is an 84 year old male who presents to the ED after a fall, landing on L hp. Imagine showed fracture of L femur, underwent nailing of L hip on 06/[address] Ramsey - Testing/Imaging: CT HEAD W/O CONTRAS IMPRESSION: 1. Minimal small-vessel ischemic changes 2. No acute hemorrhage. CT C-SPINE IMPRESSION: 1. No CT evidence of acute traumatic injury in the cervical spine. 2. Multilevel degenerative spondylosis of the cervical spine as noted above. XRAY L EBOW: (-) XRAY L HIP (06/28): IMPRESSION: 1. Comminuted and displaced intertrochanteric fracture of the left femur with mild varus angulation. XRAY L HIP (06/29) IMPRESSION: Intraoperative fluoroscopy for guidance and documentation and performing ORIF of a comminuted intertrochanteric fracture of the left femur. Home Environment Source: Patient Lives with: Spouse Type of Home: House Home Layout: One level, Laundry in basement (does not need to access) Home Access: Stairs to enter with rails Ascending Entrance Stairs- Rails: Right Entrance Stairs- Number of Steps: 2 Patient's Work/Caregiver Role: Retired (from ) Home Equipment Home Adaptive Equipment: Rollator Bed Type: Flat bed Shower/Tub: Walk-in shower Toilet: Comfort height Bathroom Equipment: Grab bars in shower Prior Functional Level Functional Transfers: Independent Functional Mobility: Independent Driving/Transportation: Drives Premorbid Communication: Wears glasses/contacts (readers) Premorbid Cognition: No known deficits Weightbearing Status LLE Weight Bearing: WBAT Therapy Precautions Fall Risk Additional Comments:Yellow Fall Risk Orthotics/Braces Orthotics, Braces: Not applicable Session Beginning Location, Safety Info Upon Arrival Patient Location: In bed Upon Arrival Safety: Bed alarm on, Vitals stable Pertinent Information Since Last Session: No acute changes since last session Pain Assessment Pain Score: 0/10 Oxygen Administration Details Oxygen Delivery Device: RA Pertinent Medication/Information No VSS of distres or dizziness thru treatment session TaskCurrent Assist LevelDevices, Other Details Bed Mobility Rolling Right Left Supine to SitStandby supervision Sit to Supine Sit to/from StandStandby supervision FWW Transfer Bed to ChairStandby supervision Gait TrainingStandby supervision FWW Distance: 100' Stair Training Rolling - Right, Left GOAL: Will roll right/left with: Modified independence Treament This Date: Roll Right/Left Status: Not Addressed during today?s session Supine To Sit GOAL: Will perform supine to sit with: Modified independence Treatment This Date: Supine to Sit Status: Addressed during today's session Supine to Sit Assistance: Standby supervision Assistance Required for: Supervision/safety, Verbal cueing Therapeutic Modifications During Session: HOB elevated Sit to Supine GOAL: Will perform sit to supine with: Modified independence Treatment This Date: Sit to Supine Status: Not Addressed during today?s session Sit to/from Stand GOAL: Will perform sit to/from siddhartha (more content not included)...[facility]10-17-2025 History of Present illness Narrative* Naun Nguyen, [facility] [employer] [facility] - 07/02/2025 12:33 PM EDT Physical Therapy Treatment Admit date: 06/28/2025 Today's Date: 07/02/2025 Patient Name/MR#: Joo Allen [id number] [address] Admitting Diagnosis: Closed left hip fracture, initial encounter ([facility]) [S72.002A] Fall from standing, initial encounter [W19.XXXA] Intertrochanteric fracture, closed, left, initial encounter ([facility]) [S72.142A] Admitting Provider: Philip Farisa MD PT Discharge Recommendations 1. Physical Therapy services recommended to continue after discharge: Yes 2. Supervision for safety required: Caregiver will need to provide multimedia teacher supervision: Unobserved for brief periods of time only but not left alone 3. Physical Assistance required for daily care: Caregiver will need to provide minimum physical assistance: Caregiver will need to supply 1-25% of physical assistance 4. PT Discharge Equipment Needs if Returning Home: Front Wheeled Walker DME Justification for Recommended Equipment Walker - Standard Patient has a mobility limitation that significantly impairs their ability to participate in one or more MRADLS such as toileting, feeding, dressing, grooming, and bathing in the home and in a reasonable timeframe. This limitation is resolved with the use of the walker The patientis able to safely use the walker Functional Outcomes/Testing and Reporting Basic Mobility: AM-PAC 6 Clicks:19 General - Subjective: I hope I can go home today - Current Medical Status: Pt is an 84 year old male who presents to the ED after a fall, landing onL hp. Imagine showed fracture of L femur, underwent nailing of L hip on 06/[address] Ramsey - Testing/Imaging: CT HEAD W/O CONTRAS IMPRESSION: 1. Minimal small-vessel ischemic changes 2. No acute hemorrhage. CT C-SPINE IMPRESSION: 1. No CT evidence of acute traumatic injury in the cervical spine. 2. Multilevel degenerative spondylosis of the cervical spine as noted above. XRAY L EBOW: (-) XRAY L HIP (06/28): IMPRESSION: 1. Comminuted and displaced intertrochanteric fracture of the left femur with mild varus angulation. XRAY L HIP (06/29) IMPRESSION: Intraoperative fluoroscopy for guidance and documentation and performing ORIF of a comminuted intertrochanteric fracture of the left femur. Home Environment Source: Patient Lives with: Spouse Type of Home: House Home Layout: One level, Laundry in basement (does not need to access) Home Access: Stairs to enter with rails Ascending Entrance Stairs- Rails: Right Entrance Stairs- Number of Steps: 2 Patient's Work/Caregiver Role: Retired (from ) Home Equipment Home Adaptive Equipment: Rollator Bed Type: Flat bed Shower/Tub: Walk-in shower Toilet: Comfort height Bathroom Equipment: Grab bars in shower Prior Functional Level Functional Transfers: Independent Functional Mobility: Independent Driving/Transportation: Drives Premorbid Communication: Wears glasses/contacts (readers) Premorbid Cognition: No known deficits Weightbearing Status LLE Weight Bearing: WBAT Therapy Precautions Fall Risk Additional Comments:Yellow Fall Risk Orthotics/Braces Orthotics, Braces: Not applicable Session Beginning Location, Safety Info Upon Arrival Patient Location: In bed Upon Arrival Safety: Bed alarm on, Vitals stable Pertinent Information Since Last Session: No acute changes since last session Pain Assessment Pain Score: 0/10 Oxygen Administration Details Oxygen Delivery Device: RA Pertinent Medication/Information No VSS of distres or dizziness thru treatment session Task Current Assist Level Devices, Other Details Bed Mobility Rolling Right Left Supine to Sit Standby supervision Sit to Supine Sit to/from Stand Standby supervision FWW Transfer Bed to Chair Standby supervision Gait Training Standby supervision FWW Distance: 100' Stair Training Rolling - Right, Left GOAL: Will roll right/left with: Modified independence Treament This Date: Roll Right/Left Status: Not Addressed during today s session Supine To Sit GOAL: Will perform supine to sit with: Modified independence Treatment This Date: Supine to Sit Status: Addressed during today's session Supine to Sit Assistance: Standby supervision Assistance Required for: Supervision/safety, Verbal cueing Therapeutic Modifications During Session: HOB elevated Sit to Supine GOAL: Will perform sit to supine with: Modified independence Treatment This Date: Sit to Supine Status: Not Addressed during today s session Sit to/from Stand GOAL: Will perform sit to/from stand with: Modified independence Treatment This Date: Sit to/From Stand Status: Addressed during today's session Sit to Stand Assistance: Standby supervision Assistive Devices: FWW Assistance Required for: Hand placement, Proper technique Therapeutic Modifications Required for: Bed height elevated, 1 hand on AD, 1 hand on bed rail Bed to Chair GOAL: Will perform sit to/from chair with: Modified independence Treatment This Date: Bed to Chair: Addressed during today's session Bed to Chair Assistance: Standby supervision Assistive Devices: FWW Assistance Required for: Safety, Verbal cues for technique Therapeutic Modifications Required for: None Gait Training GOAL: Will ambulate: 150+ feet, Modified independence, Least restrictive assistive device Treatment This Date: Gait Training Status: Addressed during today's session Gait Assistance: Standby supervision Assistive Devices: FWW Gait Pattern: Decreased L heel strike, Decreased R heel strike, Decreased L foot clearance, Decreased R foot clearance, Reciprocal, Antalgic, Lateral trunk sway Assistance Required for: Hand placement on AD, Upright posture, Verbal cues to aid in correction ofstated deviations Distance: 100' Stair Training GOAL: Will ascend/descend: 2 steps, Standby supervision, R rail ascending, SPC Treatment This Date: Stair Training Status: Not Addressed during today s session Home Exercise GOAL: Patient to complete HEP: With minimal verbal cues Treatment This Date: HEP Goal Status: Addressed During Today s Session Patient Position: Sitting in bed Exercises Performed: Ankle Pumps, Heel Slides, Quad Sets, Glut Sets Type of Exercise/Resistance Used:: AROM Assistance Required for: HEP reviewed POC DUE 07/14/25 Patient/Caregiver Education Education Provided: Role of PT, Education about rehab diagnosis, Use of call light for assistance, Treatment plan reviewed, Gait/stair training, Transfer training, Home safety, Body mechanics, Importance of mobility Patient Education Completed: Verbalized understanding, Return demonstration Family/Caregiver Education Completed: Verbalized understanding Session Ending Location, Safety Info End of Session Patient Location: Sitting in chair End of Session Patient Safety: Chair alarm on, Family member/caregiver present, Gait belt used, Call light within reach, Phone within reach Interdisciplinary Communication: RN updated on patient performance, Spoke with OT Plan PT Patient/Family Goal: go home Treatment: Therapeutic activities, Therapeutic exercise, Gait training, Neuromuscular re-education,Self-care PT Frequency: 7x/wk PT Duration of Treatment: 2 weeks PT Co-Treat: Yes Reason for Cotreatment: Poor activity tolerance for participation in multiple treatment sessions Treatment Time/Minutes Time Treatment Initiated: 1103 Time Treament Completed: 1141 Total Treatment Time: 38 Timed Code Minutes: 38 Minutes Cosigned by Christianne Dennis PT, DPT at 07/02/2025 1:17 PM EDT * Devaughn Torres RN - 07/02/2025 12:57 AM EDT From 1946. Patient reports tolerable pain, VSS. Patient remains alert/oriented. Left hip dressings are appropriate. See flowsheets for additional documentation. * Nneka Wilson RN - 07/01/2025 7:09 PM EDT 07/01/251908 Wound/Ostomy Does patient have the following: Surgical incision 4 Eyes/4 Hours All pressure points have been assessed Assessment complete - no pressure injury found Pressure point review attestation (Enter Full Name) Lise Kenyon RN * Jamila Ernst PT - 07/01/2025 11:[address] Bolivar's office at [phone] and spoke to Chica and she verified she received the faxed home care referral and will be sending that on to [facility] services with an order and [facility] will reach out to patient and family to schedule. * Aline Rogers PA-C - 07/01/2025 11:27 AM EDT Orthopedic progress note: Postop day : Cephalomedullary Nail, Left Hip Patient seen at bedside reports pain is well-controlled. He has been up with therapy today and reports it went well except that he was hypotensive. He was able to walk the length of the hallway with minimal assist. He may continue to be weightbearing as tolerated to the left lower extremity. Continue with anticoagulation, therapies as tolerated, discharge planning and pain control. He is orthopedically stable for discharge. Follow-up outpatient for postop 10 days. * Naun Oralia Nguyen PTA - 07/01/2025 9:55 AM EDT Physical Therapy Treatment Admit date: 06/28/2025 Today's Date: 07/01/2025 Patient Name/MR#: Joo Allen [id number] Current Room: [address] Admitting Diagnosis: Closed left hip fracture, initial encounter ([facility]) [S72.002A] Fall from standing, initial encounter [W19.XXXA] Intertrochanteric fracture, closed, left, initial encounter ([facility]) [S72.142A] Admitting Provider: Philip Farias MD PT Discharge Recommendations 1. Physical Therapy services recommended to continue after discharge: Yes 2. Supervision for safety required: Caregiver will need to provide multimedia teacher supervision: Unobserved for brief periods of time only but not left alone 3. Physical Assistance required for daily care: Caregiver will need to provide minimum physical assistance: Caregiver will need to supply 1-25% of physical assistance 4. PT Discharge Equipment Needs if Returning Home: Front Wheeled Walker DME Justification for Recommended Equipment Walker - Standard Patient has a mobility limitation that significantly impairs their ability to participate in one or more MRADLS such as toileting, feeding, dressing, grooming, and bathing in the home and in a reasonable timeframe. This limitation is resolved with the use of the walker The patientis able to safely use the walker Functional Outcomes/Testing and Reporting Basic Mobility: AM-PAC 6 Clicks:18 General - Subjective: We will take the back ways home - Current Medical Status: Pt is an 84 year old male who presents to the ED after a fall, landing onL hp. Imagine showed fracture of L femur, underwent nailing of L hip on 06/[address] Ramsey - Testing/Imaging: CT HEAD W/O CONTRAS IMPRESSION: 1. Minimal small-vessel ischemic changes 2. No acute hemorrhage. CT C-SPINE IMPRESSION: 1. No CT evidence of acute traumatic injury in the cervical spine. 2. Multilevel degenerative spondylosis of the cervical spine as noted above. XRAY L EBOW: (-) XRAY L HIP (06/28): IMPRESSION: 1. Comminuted and displaced intertrochanteric fracture of the left femur with mild varus angulation. XRAY L HIP (06/29) IMPRESSION: Intraoperative fluoroscopy for guidance and documentation and performing ORIF of a comminuted intertrochanteric fracture of the left femur. Home Environment Source: Patient Lives with: Spouse Type of Home: House Home Layout: One level, Laundry in basement (does not need to access) Home Access: Stairs to enter with rails Ascending Entrance Stairs- Rails: Right Entrance Stairs- Number of Steps: 2 Patient's Work/Caregiver Role: Retired (from ) Home Equipment Home Adaptive Equipment: Rollator Bed Type: Flat bed Shower/Tub: Walk-in shower Toilet: Comfort height Bathroom Equipment: Grab bars in shower Prior Functional Level Functional Transfers: Independent Functional Mobility: Independent Driving/Transportation: Drives Premorbid Communication: Wears glasses/contacts (readers) Premorbid Cognition: No known deficits Weightbearing Status LLE Weight Bearing: WBAT Therapy Precautions Fall Risk Additional Comments:Yellow Fall Risk Orthotics/Braces Orthotics, Braces: Not applicable Session Beginning Location, Safety Info Upon Arrival Patient Location: In bed Upon Arrival Safety: Bed alarm on, Vitals stable, Family/caregiver present Pertinent Information Since Last Session: No acute changes since last session Pain Assessment Pain Score: 10/26 Pain Location: L hip Pain Intervention: Repositioned, Ambulation, Activity modified, Patient reports pain level tolerable for therapy, Emotional support, Extremity elevated Oxygen Administration Details Oxygen Delivery Device: RA Pertinent Medication/Information Pt progressed very well through therapy activities. Post amb to gym and stair training pt had symptoms of syncope becoming very dizzy and lightheaded with c/o tunnel vision and becoming min responsive. pt LE were elevated and O2 and BPs were taken, pt was given yi crackers and water and pt feltbetter in 10 min. Pt had not eaten breakfast or had anything to drink today. Task Current Assist Level Devices, Other Details Bed Mobility Rolling Right Left Supine to Sit Minimal assist Sit to Supine Minimal assist Sit to/from Stand Standby supervision FWW Transfer Bed to Chair Gait Training Standby supervision FWW Distance: 90' Stair Training Minimal assist (CGA) FWW, SPC, R rail ascending Rolling - Right, Left GOAL: Will roll right/left with: Modified independence Treament This Date: Roll Right/Left Status: Not Addressed during today s session Supine To Sit GOAL: Will perform supine to sit with: Modified independence Treatment This Date: Supine to Sit Status: Addressed during today's session Supine to Sit Assistance: Minimal assist Assistance Required for: Verbal cueing, Supervision/safety, Left LE Therapeutic Modifications During Session: HOB elevated Sit to Supine GOAL: Will perform sit to supine with: Modified independence Treatment This Date: Sit to Supine Status: Addressed during today's session Sit to Supine Assistance: Minimal assist Assistance Required for: Verbal cueing, Supervision/safety, Left LE, Trunk, Verbal cues for technique for scooting up in bed Sit to/from Stand GOAL: Will perform sit to/from stand with: Modified independence Treatment This Date: Sit to/From Stand Status: Addressed during today's session Sit to Stand Assistance: Standby supervision Assistive Devices: FWW Assistance Required for: Hand placement, Proper technique Therapeutic Modifications Required for: Bed height elevated, 1 hand on AD, 1 hand on bed rail Bed to Chair GOAL: Will perform sit to/from chair with: Modified independence Treatment This Date: Bed to Chair: Not Addressed during today s session Gait Training GOAL: Will ambulate: 150+ feet, Modified independence, Least restrictive assistive device Treatment This Date: Gait Training Status: Addressed during today's session Gait Assistance: Standby supervision Assistive Devices: FWW Gait Pattern: Decreased L heel strike, Decreased R heel strike, Decreased L foot clearance, Decreased R foot clearance, Step to, Narrow SIVAKUMAR, Antalgic, Decreased step length Right, Decreased gait speed, Lateral trunk sway Assistance Required for: Upright posture, Verbal cues to aid in correction of stated deviations Distance: 90' Stair Training GOAL: Will ascend/descend: 2 steps, Standby supervision, R rail ascending, SPC Treatment This Date: Stair Training Status: Addressed during today's session Stairs Assistance: Minimal assist (CGA) Rails: R rail ascending, L rail descending Assistive Devices: FWW, SPC, R rail ascending Pattern: Step to Assistance Required for: Safety, Management of AD, Verbal cues for technique Number of Steps: 4 Height: 6 Home Exercise GOAL: Patient to complete HEP: With minimal verbal cues Treatment This Date: HEP Goal Status: Addressed During Today s Session Patient Position: Sitting in bed Exercises Performed: Ankle Pumps, Heel Slides, Quad Sets Type of Exercise/Resistance Used:: AROM Sets: 1 Reps: 10 Assistance Required for: Demonstration of exercise, Verbal cues for safe completion, Verbal cues for technique, HEP issued, HEP reviewed POC DUE 07/14/25 Patient/Caregiver Education Education Provided: Role of PT, Education about rehab diagnosis, Precautions, HEP issued, Treatmentplan reviewed, Gait/stair training, Transfer training, Home safety, Body mechanics, Importance of mobility, Handout issued Patient Education Completed: Verbalized understanding, Return demonstration Family/Caregiver Education Completed: Verbalized understanding, Return demonstration Session Ending Location, Safety Info End of Session Patient Location: Returned to bed End of Session Patient Safety: Bed alarm on, Family member/caregiver present, Gait belt used, Call light within reach, Bed in lowest position, Phone within reach Interdisciplinary Communication: RN updated on patient performance, Spoke with OT Plan PT Patient/Family Goal: go home Treatment: Therapeutic activities, Therapeutic exercise, Gait training, Neuromuscular re-education,Self-care PT Frequency: 7x/wk PT Duration of Treatment: 2 weeks PT Co-Treat: Yes Reason for Cotreatment: Poor activity tolerance for participation in multiple treatment sessions Treatment Time/Minutes Time Treatment Initiated: 821 Time Treament Completed: 917 Total Treatment Time: 56 Timed Code Minutes: 56 Minutes Cosigned by Christianne Dennis PT, DPT at 07/02/2025 8:27 AM EDT * AKHIL Azevedo, OTR/L - 07/01/2025 9:50 AM EDT Occupational Therapy Treatment Admit date: 06/28/2025 Today's Date: 07/01/2025 Patient Name/MR#: Joo Allen [id number] Current Room: 456/R4538-C Admitting Diagnosis: Closed left hip fracture, initial encounter ([facility]) [S72.002A] Fall from standing, initial encounter [W19.XXXA] Intertrochanteric fracture, closed, left, initial encounter ([facility]) [S72.142A] Admitting Provider: Philip Farias MD Past Medical/Surgical History: has a past medical history of Hypertension. has no past surgical history on file. OT Discharge Recommendations 1. Occupational Therapy services recommended to continue after discharge: Yes 2. Supervision for safety required: multimedia manager supervision required: Unobserved for brief periods oftime only but not left alone 3. Physical assistance required for daily care: Minimum Physical Assistance required: Caregiver supplies 1-25% of physical assistance 4. 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 I would let out into my garden during the day and bring it in at night . - Current Medical Status: Pt is an 84 year old male who presents to the ED after a fall, landing onL hp. Imagine showed fracture of L femur, underwent nailing of L hip on 06/[address] Ramsey - Testing/Imaging: CT HEAD W/O CONTRAS IMPRESSION: 1. Minimal small-vessel ischemic changes 2. No acute hemorrhage. CT C-SPINE IMPRESSION: 1. No CT evidence of acute traumatic injury in the cervical spine. 2. Multilevel degenerative spondylosis of the cervical spine as noted above. XRAY L EBOW: (-) XRAY L HIP (06/28): IMPRESSION: 1. Comminuted and displaced intertrochanteric fracture of the left femur with mild varus angulation. XRAY L HIP (06/29) IMPRESSION: Intraoperative fluoroscopy for guidance and documentation and performing ORIF of a comminuted intertrochanteric fracture of the left femur. Home Environment Source: Patient Lives with: Spouse Type of Home: House Home Layout: One level, Laundry in basement (does not need to access) Home Access: Stairs to enter with rails Ascending Entrance Stairs- Rails: Right Entrance Stairs- Number of Steps: 2 Patient's Work/Caregiver Role: Retired (from ) Home Equipment Home Adaptive Equipment: Rollator Bed Type: Flat bed Shower/Tub: Walk-in shower Toilet: Comfort height Bathroom Equipment: Grab bars in shower Prior Functional Level ADLs: Independent IADLs/Health Management: Independent Driving/Transportation: Drives Functional Transfers: Independent Functional Mobility: Independent (Pt ambulates IND at baseline, no other falls within the last 3 months.) Rest/Sleep: Denies difficulty/normal sleep pattern Premorbid Communication: Wears glasses/contacts (Reading glasses) Premorbid Cognition: No known deficits Weightbearing Status LLE Weight Bearing: WBAT Therapy Precautions Fall Risk Additional Comments:Yellow Fall Risk Orthotics/Braces Session Beginning Location, Safety Info Upon Arrival Patient Location: In bed Upon Arrival Safety: Bed alarm on, Vitals stable, Family/caregiver present Pertinent Information Since Last Session: No acute changes since last session Pain Assessment Pain Score: 6/10 Pain Location: L hip and knee Pain Intervention: RN notified, Repositioned, Increased activity, Ambulation, Activity modified, Patient reports pain tolerable level for therapy Oxygen Administration Details Oxygen Delivery Device: RA Pertinent Medication/Information Pt denied SOB throughout session. After practicing stair transfer, pt reporting onset of dizziness symptom, sitting in chair to rest. Once sitting, pt beginning to display signs of possible presyncopal epsiode. Pt's eyes becoming dilated, onset of full body tremors, change in color of skin, and inattention (not responding to questions). All symptoms lasting for approximately 15-30 seconds. Therapy began to elevate BLE. BP taken at this time, BP - 90/32 (45). Pt began responding, able to report blurry vision. Pt provided with food and water. After 3 minute rest break with BLE elevated, BP 112/56 (65). After an additional 10- 15 minute rest break with oral intake, BP 132/61 (79), HR 80 bpm. Ptreturned to bed at the end of the session, RN and orthopedic surgeon notified of event. Activity Tolerance Functional Activity Tolerance: Tolerate 30 min activity with multiple rest breaks Task Current Assist Level Devices, Other Details Grooming UB Dressing LB Dressing Bathing Toileting Bed Mobility Minimal assist Sit to/from Stand Standby supervision FWW Toilet Transfer Standby supervision YOLIS Guerrero Goals OT POC Due: 07/14/25 Grooming GOAL: Will complete grooming/simple hygiene with: Dorado (standing) Treatment This Date: Grooming Status: Not Addressed During Today s Session LB Dressing GOAL: Will complete lower body (LB) dressing with: Modified independence Treatment This Date: LB Dressing Status: Addressed During Today s Session Task(s) Completed: Pt and family members verbalized no concerns with dressing, reporting obtaining gamma operator to assist with LB dressing. Bathing GOAL: Will complete bathing with: Modified independence Treatment This Date: Bathing Status: Addressed During Today s Session Task(s) Completed: Pt and family educated on proper bathing techniques, including to not submerge surgical site in water, to complete only showers for bathing. All parties verbalized understanding. Toileting GOAL: Will complete toileting with: Dorado Treatment This Date: Toileting Status: Not Addressed During Today s Session Bed Mobility GOAL: Will complete bed mobility with: Modified independence Treatment This Date: Bed Mobility Status: Addressed During Today s Session Bed Mobility Assist Level: Minimal assist Assistance Required for: HOB elevated, Supervision/safety, Moving LLE into bed, Moving LLE to edge of bed, Safety awareness/judgement Task(s) Completed: Pt needing MIN A to bring L LE off EOB and to bring L LE back into bed at the end of the session. Sit to/from Stand GOAL: Will perform sit to/from stand with: Modified independence Treatment This Date: Sit to from Stand Status: Addressed During Today s Session Sit to from Stand Assist Level: Standby supervision Assistive Device: FWW Assistance Required for: Safety awareness/judgement, Hand placement Functional Mobility GOAL: Patient will perform functional mobility task with: Modified independence Treatment This Date: Functional Mobility Status: Addressed During Today s Session Functional Mobility Assist Level: Standby supervision Assistance Required for: Verbal cueing, Safety awareness/judgement, Sequencing Assistive Device Needed: FWW Task(s) Completed: Pt ambulated 88 feet from room > therapy gym with FWW. Cues needed at times for sequencing. Toilet Transfer GOAL: Patient will perform toilet transfer: Modified independent Treatment This Date: Toilet Transfer Status: Addressed During Today s Session Toilet Transfer Assist Level: Standby supervision Assistance Required for: Supervision/safety Assistive Device/Adaptive Equipment needed: Grab bar, FWW Task(s) Completed: Able to demonstrate sit <> stand with good sequencing Home Exercise Goal Status GOAL: To complete HEP : With independence Treatment This Date: HEP Status: Not Addressed During Today s Session Patient/Caregiver Education Education Provided: Role of OT, Education about rehab diagnosis, Use of call light for assistance, Importance of mobility Patient Education Completed: Verbalized understanding, Return demonstration Family/Caregiver Education Completed: Verbalized understanding Session Ending Location, Safety Info End of Session Patient Location: Returned to bed End of Session Patient Safety: Bed alarm on, Family member/caregiver present, Gait belt used, Call light within reach, Lines and drains intact, Phone within reach, Bed in lowest position Interdisciplinary Communication: RN updated on patient performance, Spoke with PT, RN notified about issues during session, Spoke with Provider (Message sent to provider through [employer] Secure Chat) Plan OT Patient/Family Goal: I'm ready to go home and drink some wine . Treatment Interventions to Address Currrent Goals: Self care/Home Management, Therapeutic exercise,Therapeutic activities OT Frequency: 6x/wk OT Duration of Treatment: 2 weeks OT Co-Treat?: Yes Reason for Cotreatment: Poor activity tolerance for participation in multiple treatment sessions Treatment Time/Minutes Treatment- Time Initiated: 821 Time Treatment Completed: 915 Total Treatment Time: 54 Timed Code Minutes: 54 Minutes Reason for Cotreatment: Poor activity tolerance for participation in multiple treatment sessions * Baljinder Carrillo MD - 07/01/2025 9:31 AM EDT [facility] Progress Note Subjective: Interval History: Status postORIF of left peritrochanteric femur fracture with long cephalomedullary nail on 06/29/2025 Patient seen at bedside pain is tolerable BP dropped with therapy today and pt felt dizzy while working with therapy Hb 8.0 Continuous Infusions: 0.9 % sodium chloride irrigation Stopped (06/30/25 0300) Objective: Vital signs in last 24 hours: Temp: [98.1 F (36.7 C)-98.2 F (36.8 C)] 98.2 F (36.8 C) Pulse: [77-96] 77 Resp: [16-18] 18 BP: (118-149)/(53-65) 149/53 Intake/Output last 3 shifts: I/O last 3 completed shifts: In: 2983 [P.O.:360; I.V.:2322.9; IV Piggyback:300.1] Out: 1575 [Urine:1575] Intake/Output this shift: No intake/output data recorded. Last BMP Result: Recent Labs Lab 07/01/25 0419 NA 131* K 4.5 CL 102 CO2 24 BUN 19 CREATININE 1.25 GLU 95 CALCIUM 8.0* Last CBC Result: Recent Labs Lab 07/01/25 0419 WBC 7.4 HEMOGLOBIN 8.0* HCT 23.1* PLT 218 RBC 2.37* No results for input(s): PROTIME , INR in the last 72 hours. Current meds Scheduled Meds: amLODIPine 5 mg Oral DAILY aspirin 81 mg Oral DAILY atorvastatin 40 mg Oral DAILY enoxaparin (LOVENOX) injection (30 or 40 mg DVT Prophylaxis) 40 mg Subcutaneous DAILY AT 0800 lisinopriL 40 mg Oral DAILY magnesium oxide 200 mg Oral DAILY pantoprazole 40 mg Intravenous Daily at 0600 ROPivacaine (PF) Continuous Infusions: 0.9 % sodium chloride irrigation Stopped (06/30/25 1540) PRN Meds:.0.9 % sodium chloride irrigation, acetaminophen, docusate, HYDROmorphone, melatonin, ondansetron OR ondansetron, oxyCODONE- acetaminophen, oxyCODONE-acetaminophen, ROPivacaine (PF) Physical Exam: Vitals: 06/30/25 1950 07/01/25 0054 07/01/25 1001 07/01/25 1149 BP: 137/65 (!) 127/54 (!) 149/53 Pulse: 88 77 Resp: 16 16 18 Temp: 98.1 F (36.7 C) 98.2 F (36.8 C) SpO2: 99% 100% Weight: Height: General appearance : Comfortable male L:CTA, no W/R/R, not labored H:RRR, S1S2 Abd:Soft ND/NT, normal BS Ext: Left hip surgical site clean and dry covered with Aquacel Orders Placed This Encounter Procedures Diet-Regular Assessment: Principal Problem: Closed left hip fracture, initial encounter ([facility]) Plan: Left hip fracture secondary to mechanical fall Status postORIF of left peritrochanteric femur fracture with long cephalomedullary nail on 06/29/2025 Ortho input appreciated Hyponatremia sodium level 129 was on IV fluids, will hold fluids Hypertension Obstructive sleep apnea wears CPAP at night HTN continue Norvasc continue lisinopril will decrease Norvasc and lisinopril dose and parameters written Both held this morning due to borderline BP's Hyperlipidemia continue statin CODE STATUS full DVT prophylaxis Lovenox Discussed with multiple family members at bedside Possible discharge home tomorrow if the blood pressure is better Baljinder Carrillo MD 07/01/2025 This chart entry has been completed using [employer]. While attempts have been made to ensure accuracy, certain words and phrases may not be entered as intended. * Jamila Ernst, PT - 07/01/2025 9:11 AM EDT Faxed home care referral to patients PCP, Sai Bolivar, per family request. Dr Bolivar's officewill send a home care referral once they find a [facility] that is in network with his [employer]. Family aware. Walker to be delivered to room this AM prior to dc. * Devaughn Torres RN - 07/01/2025 12:56 AM EDT From 1950. Patient denies complaints. VSS. Patient is alert/oriented. Left leg dressings remain clean, dry and intact. Family is at bedside. Documentation per flowsheets. * Christianne Dennis, PT, DPT - 06/30/2025 5:35 PM EDT Physical Therapy Evaluation Admit date: 06/28/2025 Today's Date: 06/30/2025 Patient Name/MR#: Joo Allen [id number] Current Room: [facility]/F7998-H Admitting Diagnosis: Closed left hip fracture, initial encounter ([facility]) [S72.002A] Fall from standing, initial encounter [W19.XXXA] Intertrochanteric fracture, closed, left, initial encounter ([facility]) [S72.142A] Admitting Provider: Philip Farias MD Past Medical/Surgical History: has a past medical history of Hypertension. has no past surgical history on file. PT Discharge Recommendations 1. Physical Therapy services recommended to continue after discharge: Yes 2. Supervision for safety required: Caregiver will need to provide multimedia teacher supervision: Unobserved for brief periods of time only but not left alone 3. Physical Assistance required for daily care: Caregiver will need to provide minimum physical assistance: Caregiver will need to supply 1-25% of physical assistance 4. PT Discharge Equipment Needs if Returning Home: Front Wheeled Walker DME Justification for Recommended Equipment: FWW Walker - Standard Patient has a mobility limitation that significantly impairs their ability to participate in one or more MRADLS such as toileting, feeding, dressing, grooming, and bathing in the home and in a reasonable timeframe. This limitation is resolved with the use of the walker The patientis able to safely use the walker Functional Outcomes/Testing and Reporting Basic Mobility: AM-PAC 6 Clicks:18 General - Subjective: Patient agreeable to therapy, pt states I make my own blackberry wine - Current Medical Status: Pt is an 84 year old male who presents to the ED after a fall, landing onL hp. Imagine showed fracture of L femur, underwent nailing of L hip on 06/[address] aRmsey - Testing/Imaging: CT HEAD W/O CONTRAS IMPRESSION: 1. Minimal small-vessel ischemic changes 2. No acute hemorrhage. CT C-SPINE IMPRESSION: 1. No CT evidence of acute traumatic injury in the cervical spine. 2. Multilevel degenerative spondylosis of the cervical spine as noted above. XRAY L EBOW: (-) XRAY L HIP (06/28): IMPRESSION: 1. Comminuted and displaced intertrochanteric fracture of the left femur with mild varus angulation. XRAY L HIP (06/29) IMPRESSION: Intraoperative fluoroscopy for guidance and documentation and performing ORIF of a comminuted intertrochanteric fracture of the left femur. - Past therapy for current diagnosis, illness or injury?: No Weightbearing Status LLE Weight Bearing: WBAT Therapy Precautions Fall Risk Additional Comments:Yellow Fall Risk Orthotics/Braces Not applicable Home Environment Source: Patient Lives with: Spouse Type of Home: House Home Layout: One level, Laundry in basement (does not need to access) Home Access: Stairs to enter with rails Ascending Entrance Stairs- Rails: Right Entrance Stairs- Number of Steps: 2 Patient's Work/Caregiver Role: Retired (from ) Home Equipment Home Adaptive Equipment: Rollator Bed Type: Flat bed Shower/Tub: Walk-in shower Toilet: Comfort height Bathroom Equipment: Grab bars in shower Prior Functional Level Functional Transfers: Independent Functional Mobility: Independent Driving/Transportation: Drives Premorbid Communication: Wears glasses/contacts (readers) Premorbid Cognition: No known deficits Session Beginning Location, Safety Info Lines, Drains, Monitors, Equipment: IV, Telemetry Upon Arrival Patient Location: In bed Upon Arrival Safety: Staff present, Bed alarm on, Vitals stable, Family/caregiver present Pain Assessment Pain Score: 3/10 (0/10 at rest, peaking at 2-3/10 with mobility) Pain Location: L hip Pain Intervention: Repositioned, Patient reports pain level tolerable for therapy Extremity Assessment RLE Assessment: Within functional limits LLE Assessment: (strength grossly 3/5) Task Current Assist Level Devices, Other Details Bed Mobility Rolling Right Left Standby supervision Supine to Sit Standby supervision Sit to Supine Sit to/from Stand Minimal assist (progressing to close SBA) FWW Transfer Bed to Chair Minimal assist (progressing to SBA) FWW Gait Training Minimal assist (progressing to close SBA) FWW Distance: 150ft Stair Training Minimal assist SPC (in L UE) Mobility Rolling Rolling Assistance: Standby supervision Assistance Required for: Verbal cues for proper technique, Verbal cues for use of bed rail, Supervision/safety, Increased time to complete Therapeutic Modifications During Session: HOB elevated, Use of L rail (40 ) Supine to Sit Supine to Sit Assistance: Standby supervision Assistance Required for: Verbal cueing, Supervision/safety, Increased time to complete, Other (comment) (Pt repositioned self EOB with use of B UE support and) Therapeutic Modifications During Session: HOB elevated, Use of L rail (40 ) Sitting Balance Sitting Balance Assistance: Standby supervision Balance Support/Assist Required for: Feet supported Sit to Stand Sit to Stand Assistance: Minimal assist (progressing to close SBA) Devices: FWW Assistance Required for: Hand placement, Clearing buttocks from surface, Proper technique (cues to push up from supportive surface and to place L LE anterior for comfort) Therapeutic Modifications Required for: Bed height elevated, 1 hand on AD, 1 hand on bed rail (Pt completed sit<>stand from EOB, recliner, w/c an car seat) Standing Balance Standing Balance Assistance: Minimal assist (Progressing to SBA) Assistance Required for: (safety) Bed to Chair Bed to Chair Assistance: Minimal assist (progressing to SBA) Devices: FWW Assistance Required for: Verbal cues for technique, Safety, Management of AD, Tactile cues, Controlled descent, Positioning/Alignment (cues to reach back for supportive surface and to place L LE anterior prior to descent with good carryover by end of session) Therapeutic Modifications Required for: Other(comment) (Pt t/f to EOB, w/c and car) Gait Gait Assistance: Minimal assist (progressing to close SBA) Devices: FWW Gait Pattern: Decreased L heel strike, Decreased R heel strike, Decreased L foot clearance, Decreased R foot clearance, Step to, Reciprocal, Wide SIVAKUMAR, Decreased step length Left, Decreased step length Right, Decreased gait speed (cues to keep walker close to body) Assistance Required for: Hand placement on AD, Upright posture Total Distance Ambulated: 150ft Stairs Stairs Assistance: Minimal assist Rails: R rail ascending, R rail descending Devices: SPC (in L UE) Pattern: Step to, Reverse, Other (comment) (ascended forward, descended backwards) Assistance Required for: Safety, Management of AD, Verbal cues for technique Number of Steps: ascend/descend 2 steps Height: 6 inch Oxygen Administration Details Oxygen Delivery Device: RA Pertinent Medication/Information VSS no s/s of distress. Pt denied c/o SOB, multiple reports of dizziness/lightheadedness intermittently with mobility. BP seated on commode 118/60mmHg MAP 77, HR 96bpm. BP following amb to therapy gym 131/46mmHg MAP 67. Cognition Mental State: Alert Social Interaction Skills: Calm, Cooperative Follows Commands: 2 step, Consistently Orientation: X4 Additional Cognitive Concerns Noted: Safety Awareness/Judgement, Problem Solving Session Ending Location, Safety Info End of Session Patient Location: Sitting in chair End of Session Patient Safety: Staff present, Chair alarm on, Family member/caregiver present, Gaitbelt used, Call light within reach, Lines and drains intact, Phone within reach Interdisciplinary Communication: Spoke with RN prior to session, RN updated on patient performance,Spoke with Care Management, White Board updated Patient/Caregiver Education Education Provided: Role of PT, Education about rehab diagnosis, Use of call light for assistance, Precautions, HEP issued, Treatment plan reviewed, Gait/stair training, Transfer training, Home safety, Body mechanics, Importance of mobility, DME Patient Education Completed: Return demonstration, Verbalized understanding Family/Caregiver Education Completed: Verbalized understanding Assessment Problem List/Deficits: Balance, Functional activity tolerance, Gait, Strength, Neuro deficits Rehab Diagnosis: Decreased functional mobility Rehab Potential to Meet Established Goals: Good Plan PT Patient/Family Goal: go home Treatment: Therapeutic activities, Therapeutic exercise, Gait training, Neuromuscular re-education,Self-care PT Frequency: 7x/wk PT Duration of Treatment: 2 weeks PT Co-Treat: Yes Reason for Cotreatment: Poor activity tolerance for participation in multiple treatment sessions Goals Rolling Right-Left Will roll right/left with: Modified independence Status: Progressing, ongoing Supine to Sit Will perform supine to sit with: Modified independence Status: Progressing, ongoing Sit to Supine Will perform sit to supine with: Modified independence Status: Progressing, ongoing Sit to/From Stand Will perform sit to/from stand with: Modified independence Status: Progressing, ongoing Bed to Chair Will perform sit to/from chair with: Modified independence Status: Progressing, ongoing Gait Training Will ambulate: 150+ feet, Modified independence, Least restrictive assistive device Status: Progressing, ongoing Stair Training Will ascend/descend: 2 steps, Standby supervision, R rail ascending, SPC Status: Progressing, ongoing Home Exercise Patient to complete HEP: With minimal verbal cues Status: Progressing, ongoing POC DUE 07/14/25 Evaluation/Minutes Time Initial Eval Initiated: 1153 Time Eval Completed: 1332 Total Evaluation Time: 99 Timed Code Minutes: 70 Minutes * Victoria Shirley, MOT, OTR/L - 06/30/2025 3:10 PM EDT Occupational Therapy Evaluation Admit date: 06/28/2025 Today's Date: 06/30/2025 Patient Name/MR#: Joo Allen [id number] Current Room: F4456/C4237-F Admitting Diagnosis: Closed left hip fracture, initial encounter ([facility]) [S72.002A] Fall from standing, initial encounter [W19.XXXA] Intertrochanteric fracture, closed, left, initial encounter ([facility]) [S72.142A] Admitting Provider: Philip Farias MD Past Medical/Surgical History: has a past medical history of Hypertension. has no past surgical history on file. OT Discharge Recommendations 1. Occupational Therapy services recommended to continue after discharge: Yes 2. Supervision for safety required: multimedia manager supervision required: Unobserved for brief periods oftime only but not left alone 3. Physical assistance required for daily care: Minimum Physical Assistance required: Caregiver supplies 1-25% of physical assistance 4. OT Discharge Equipment Needs If Returning Home: Shower Chair with Back, Hip Kit, AD for Mobility(FWW. Pt and family educated on obtaining shower chair and hip kit on own.) Functional Outcomes/Testing and Reporting Daily Activity AM-PAC 6 Click: 20 General - Subjective: Pt states, So when I can start drinking my blackberry wine again? - Current Medical Status: Pt is an 84 year old male who presents to the ED after a fall, landing onL hp. Imagine showed fracture of L femur, underwent nailing of L hip on 06/[address] Ramsey - Testing/Imaging: CT HEAD W/O CONTRAS IMPRESSION: 1. Minimal small-vessel ischemic changes 2. No acute hemorrhage. CT C-SPINE IMPRESSION: 1. No CT evidence of acute traumatic injury in the cervical spine. 2. Multilevel degenerative spondylosis of the cervical spine as noted above. XRAY L EBOW: (-) XRAY L HIP (06/28): IMPRESSION: 1. Comminuted and displaced intertrochanteric fracture of the left femur with mild varus angulation. XRAY L HIP (06/29) IMPRESSION: Intraoperative fluoroscopy for guidance and documentation and performing ORIF of a comminuted intertrochanteric fracture of the left femur. - Past therapy for current diagnosis, illness or injury? No Weightbearing Status LLE Weight Bearing: WBAT Therapy Precautions Fall Risk Additional Comments: Orthotics/Braces Home Environment Source: Patient Lives with: Spouse Type of Home: House Home Layout: One level, Laundry in basement (does not need to access) Home Access: Stairs to enter with rails Ascending Entrance Stairs- Rails: Right Entrance Stairs- Number of Steps: 2 Patient's Work/Caregiver Role: Retired (from ) Home Equipment Home Adaptive Equipment: Rollator Bed Type: Flat bed Shower/Tub: Walk-in shower Toilet: Comfort height Bathroom Equipment: Grab bars in shower Prior Functional Level ADLs: Independent IADLs/Health Management: Independent Driving/Transportation: Drives Functional Transfers: Independent Functional Mobility: Independent (Pt ambulates IND at baseline, no other falls within the last 3 months.) Rest/Sleep: Denies difficulty/normal sleep pattern Premorbid Communication: Wears glasses/contacts (Reading glasses) Premorbid Cognition: No known deficits Session Beginning Location, Safety Info Lines, Drains, Monitors, Equipment: Telemetry, IV, SCDs Upon Arrival Patient Location: In bed Upon Arrival Safety: Staff present, Bed alarm on, Vitals stable, Family/caregiver present Pain Assessment Pain Score: 3/10 Pain Location: L hip and knee Pain Intervention: Repositioned, Increased activity, Patient reports pain tolerable level for therapy Extremity Assessment RUE Assessment: Within functional limits LUE Assessment: Within functional limits Task Current Assist Level Devices, Other Details Grooming Standby supervision UB Dressing Independent LB Dressing Minimal assist Bathing Minimal assist Toileting Standby supervision Bed Mobility Standby supervision Sit to/from Stand Minimal assist FWW Toilet Transfer Minimal assist Grab bar, FWW Activities of Daily Living and Functional Mobility Unless otherwise specified, above values represent clinical judgment based on simulated activity participation during session. Further treatment provided this session: Feeding Assistance Feeding Assistance Level: Independent Assistance Required for: Not applicable/independent Feeding Tasks Completed: Pt able to feed self IND Position: (Feeding self when sitting upright in simulated car chair) Grooming Assistance Grooming Assistance Level: Standby supervision Upper Body Dressing UB Dressing Assistance: Independent Assistance Required for: None UB Dressing Tasks Completed: Able to doff gown and don t-shirt without difficulties Position: Edge of bed Lower Body Dressing LB Dressing Assistance Level: Minimal assist Assistance Required for: Verbal cueing for proper technique, Supervision/safety, Don LLE into underwear LB Dressing Tasks Completed: Pt needing assist to thread L LE into underwear, able to thread R LE in underwear and with pants utilizing forward reach. Pt and family educated on use of gamma operator for modified dressing, all parties verbalized understanding to education provided. Position: Edge of bed Bathing Assistance Bathing Assistance Level: Minimal assist Toileting Assistance Toileting Assistance Level: Standby supervision Toileting Tasks Completed: Pt denied need to void during eval. Bed Mobility Bed Mobility Assistance Level: Standby supervision Assistance Required for: HOB elevated, Supervision/safety Bed Mobility Tasks Completed: Supine > sit with HOB elevated ~30 degrees, exiting L side of bed with increased time and use of hand to bring L LE off EOB. Sit to from Stand Sit to Stand Assistance Level: Minimal assist Assistance Required for: Clearing buttocks from surface, Hand placement, Supervision/safety, Positioning/Alignment Assistive Devices: FWW Further treatment provided this session: Sit to from Stand: Pt performed several more sit <> stand transfers with FWW from various surface levels, including w/c and car. Pt requiring increased time and verbal cues to have proper hand placement and to extend L LE prior to standing. Functional Mobility Functional Mobility Assistance: Minimal assist Assistance Required for: Verbal cueing, Supervision/safety Assistive Devices: FWW Functional Tasks Completed: Pt ambulated 8 feet from EOB > toilet. Pt then ambulated an additional 70 feet with FWW, cues for sequencing and balance. Further treatment provided this session: Once in the therapy gym, pt ambulated an additional 25 feet, able to progress to CGA. Once returning to room, pt then ambulated an additional 15 feet with FWW. Pt noted with L LE external rotation with all ambulation. Toilet Transfer Toilet Transfer Assistance: Minimal assist Assistance Required for: Verbal cueing, Supervision/safety, Positioning/Alignment Assistive Devices/Adaptive Equipment: Grab bar, FWW Toilet Transfer Tasks Completed: Cues and MIN A for sit <> stand from toilet, able to demonstrate controlled descent. Further treatment provided this session: Car Transfer Car Transfer Assistance: Minimal assist Assistance Required for: Verbal cueing, LLE in/out of car, Supervision/safety, Increased time to complete (Pt performed x2 car transfers, first transfer simulating entering/exiting passenger seat. Second transfer simulating entering/exiting backseat. Pt and family educated on utilizing back seat tra nsfer when commuting longer distances to elevate BLE. Pt needing increased rest break between car transfer trials.) Assistive Devices: FWW Oxygen Administration Details Oxygen Delivery Device: RA Pertinent Medication/Information No s/s of distress. Patient denied SOB with all activity. Pt reporting dizziness intermittently throughout eval and session with activity, needing several seated rest breaks at time. First noted occurrence of dizziness when pt is sitting on toilet, BP noted 118/60 (77). Ortho surgeon present at theend of the session to discuss POC with pt and family. Social work noted at end of the session regarding DME recommendations and home health services. Activity Tolerance Functional Activity Tolerance: Tolerate 30+ min activity without fatigue Cognition Mental State: Alert Social Interaction Skills: Cooperative, Calm Follows Commands: 2 step, Consistently Orientation: X4 Additional Cognitive Concerns Noted: Safety Awareness/Judgement Visual Processing Current Vision: Wears glasses only for reading Sensation Gross Sensation: Intact Motor Coordination Fine Motor: Functional Gross Motor: Functional Session Ending Location, Safety Info End of Session Patient Location: Sitting in chair End of Session Patient Safety: Staff present, Chair alarm on, Gait belt used, Call light within reach, Lines and drains intact, Phone within reach Interdisciplinary Communication: Spoke with RN prior to session, RN updated on patient performance,Spoke with PT Patient/Caregiver Education Education Provided: Role of OT, Use of call light for assistance, Education about rehab diagnosis, Importance of mobility, Body mechanics, Transfer training Patient Education Completed: Verbalized understanding, Return demonstration Family/Caregiver Education Completed: Verbalized understanding Assessment Problem List/Deficits: Grooming, Dressing, Toileting, Bathing, Functional mobility, Balance, Safety/judgement Rehab Diagnosis: Assistance with personal care Rehab Potential to Meet Established Goals: Excellent Plan OT Patient/Family Goal: I'm ready to go home and drink some wine . Treatment Interventions to Address Currrent Goals: Self care/Home Management, Therapeutic exercise,Therapeutic activities OT Frequency: 6x/wk OT Duration of Treatment: 2 weeks OT Co-Treat: Yes Reason for Cotreatment: Poor activity tolerance for participation in multiple treatment sessions Goals OT POC Due: 07/14/25 Grooming Will complete grooming/simple hygiene with: Dorado (standing) Grooming Goal Status: Progressing, ongoing Lower Body Dressing Will complete lower body (LB) dressing with: Modified independence LB Dressing Goal Status: Progressing, ongoing Bathing Will complete bathing with: Modified independence Bathing Goal Status: Progressing, ongoing Toileting Will complete toileting with: Dorado Toileting Goal Status: Progressing, ongoing Bed Mobility Will complete bed mobility with: Modified independence Bed Mobility Goal Status: Progressing, ongoing Sit to/fom Stand Will perform sit to/from stand with: Modified independence Sit to/from Stand Goal Status: Progressing, ongoing Functional Mobility Patient will perform functional mobility task with: Modified independence Functional Mobility Goal Status: Progressing, ongoing Toilet Transfer Patient will perform toilet transfer: Modified independent Toilet Transfer Goal Status: Progressing, ongoing Home Exercise To complete HEP : With independence HEP Goal Status: Progressing, ongoing Evaluation/Minutes Date Initial Eval Completed: 06/30/25 Time Initial Eval Initiated: 1153 Time Eval Completed: 1332 Total Evaluation Time: 99 Timed Code Minutes: 70 Minutes * Jamila Ernst, PT - 06/30/2025 2:58 PM EDT Images from the original note were not included. Joo Allen 38 Discharge Planning [facility] Care Liaison Date/Time of Admission : 06/28/2025 6:41 PM Patient presents with: Diagnosis *Closed left hip fracture, initial encounter ([facility]) Attending Provider: Baljinder Carrillo MD PCP: Sai Anderson MD PCP Room/Bed:[facility]/[id number] GLOS: ALOS:2 days :1940 Age:84 y.o. Plan A: plans home, looking for in [employer] [facility] Zero2IPO, 2ww ordered Plan B: Risk Stratification: 48 0-28 = Low (Green) 29-58= Moderate (Yellow) 59-90= High (Red) Barrier Assessment: Home Care Plan: Does Pt Have a PCP to Follow?: Yes PCP Name: So Ramsey Homebound?: Yes In Need of Continued Skilled Care?: Yes Is Pt Current with Skilled Home Care Prior to Hospitalization?: No Is There a Need For Skilled Home Care Related to Hospitalization?: Yes Discharge Orders Joo Allen ( ) AMB REFERRAL TO HOME HEALTH [[id number]] (Outpatient Referral) Order Class Order Status Priority Associated Dx Quantity External Referral Normal Routine Fall from standing, initial encounter [[id number]] 1 Specimen type Order Date -- 06/30/25 1453 Comments I certify that this patient is under my care and that I, a Nurse Practitioner, or a Physician Supervisor Cartography working with me had a face to Face encounter that meets the physician encounter requirements. Based on these findings, I certify that this patient is confined to the home and needs intermittent fdc care, physical therapy or speech therapy. The patient is under my care, and I have initiated the establishment of the care plan. This patient is to be followed by a physician who will periodically review the plan of care. Questions Question Answer Comment I certify that this patient is under my care and that I, a nurse practioner, or a physician service assistant working with me, had a face to face encounter that meets the physician encounter requirements on:06/30/2025 Home Health Services Needed Nursing Home PT OT To provide the following care/treatments: Assessment and intervention for change in medical condition listed above Teaching of disease management and medication management including all routes (oral, topical ect) Assessment and teaching post surgical procedure Patient has had a surgical procedure requiring follow up assessment/teaching Assess/Teach/Intervention of home safety, rehabilitation and equipment needs Theraputic excercises, gait training, ROM, modalities therapeutic programs My clinical findings support the need for the above services because Patient is recovering from an acute onset or exacerbation and is a high risk for readmission. Patient with new/changed medications and is at risk for adverse events from the new medical regimen. Patient with new incision and at risk for infection. Patient with recent surgical procedure with gait imbalance, range of motion, and pain. Further, I certify that my clinical findings support that this patient is homebound. Patient requires aid of a supportive device such as crutches, cane, wheelchairs and walkers to leave home. Patient requires assistance of another person to leave home. Supporting Homebound Criteria Includes: Poor endurance/weakness or decompensated condition related to disease process Poor endurance/weakness due to recent surgery Gait imbalance and weakness Walker [[id number]] (Equipment) Order Class Order Status Priority Associated Dx Quantity Clinic Performed Normal Routine Fall from standing, initial encounter [[id number]] 1 Specimen type Order Date -- 06/30/25 1458 Comments 2ww HT 5'2 WT 157 pounds Questions Question Answer Comment Walker 5in Wheels (front) Ordering Provder: So Ramsey DO Order Date/Time: 06/30/2025 2:58 PM Associated Diagnosis: Fall from standing, initial encounter, Intertrochanteric fracture, closed, left, initial encounter (HCC), Hyponatremia, Closed left hip fracture, initial encounter (HCC) Assessment and Plan: This HCL spoke with patient and spouse Chica regarding their right to participate in the discharge planning process and the recommendation for home care. Home health care provider options discussed, list of home health care agencies with quality star ratings provided to patient and they have chosen [facility] as their provider of services. [facility] is not accepting his [employer] insurance at this time. Family to call [employer] and choose another provider. Patient provided with home care contact information and encouraged to contact if any further questions/concerns. Start PACC Note Home Health Referral Referral collaboration between vision care associate and rigging up worker. Educated patient and spouse on Home Care and services available. Patient and spouse agreeable to Home Care. START PATIENT REGISTRATION INFORMATION Order Information Order Signing Physician: So Ramsey Service Ordered RN ?: Yes Service Ordered PT ?: Yes Service Ordered OT ?: Yes Service Ordered ST ?: No Service Ordered METEOROLOGY INSTRUCTOR?: No Service Ordered NURSING HOME ADMINISTRATOR?: No Following Physician: So Ramsey Following Physician Overseeing Physician: n/a Agreeable to Follow? Yes Date/Time of Call 06/30/25 3:00 PM Care Coordination Same Day SOC?: No Primary Care Physician: Sai Anderson MD Primary Care Physician Primary Care Physician Address: [address] [place] [address] PCP Visit Instructions: N/A Service Discharge Location Type: Home Service Facility Name: N/A Service Floor Facility: N/A Service Room No: N/A Demographics Patient Last Name: Alejandro Patient First Name: Joo Language/Communication Barrier: No Service Address: [address] Service City: [place] Service ST: [place] Service ZIP: [address] Service (home) Other phone numbers: [phone] No relevant phone numbers on file. Emergency Contact: Extended Emergency Contact Information Primary Emergency Contact: ALEJANDROJEANNE Address: [address] [place] [address] [facility] Relation: Spouse Admission Information Admit Date: 06/28/2025 Patient status at discharge: Inpatient Admitting Diagnosis: Closed left hip fracture, initial encounter ([facility]) [S72.002A] Fall from standing, initial encounter [W19.XXXA] Intertrochanteric fracture, closed, left, initial encounter ([facility]) [S72.142A] Caregiver Information Caregiver First Name: N/A Caregiver Last Name: N/A Caregiver Relationship to Patient: N/A Caregiver Phone Number: N/A Caregiver Notes: N/A Insurance Information Primary Insurance Information Primary Subscriber: AlejandroJoo Primary Subscriber Relation To Guarantor: Self Primary Payor: [employer] Primary Plan: [employer] Primary Group #: N/A Primary Subscriber ID: [id number] Primary Subscriber : 1940 Primary Insurance Type: Indemnity Primary Subscriber Employment: Retired Primary Subscriber Employer: Secondary Insurance Information Secondary Subscriber: Secondary Subscriber Relation To Guarantor: Secondary Payor: Secondary Plan: Secondary Group #: Secondary Subscriber ID: Secondary Subscriber : Secondary Insurance Type: Secondary Subscriber Employment: Secondary Subscriber Employer: [employer] Procedure: ORIF of left peritrochanteric femur fracture with long cephalomedullary nail Date of procedure: 06/29/2025 Precautions: WBAT Surgeon: So RICO PATIENT REGISTRATION INFORMATION Pt Home Health goal Start PACC Summary Procedure: ORIF of left peritrochanteric femur fracture with long cephalomedullary nail Date of procedure: 06/29/2025 Precautions: WBAT Surgeon: So Ramsey DO Physician Orthopedics Op Note Signed Date of Service: 06/29/2025 4:25 PM Case Time: Procedures: Surgeons: 06/29/2025 1:54 PM Cephalomedullary Nail, Left Hip So Ramsey DO Signed ORTHOPEDIC OPERATIVE NOTE Name: Joo Allen : 1940 CSN: [id number] Surgeon: So Ramsey DO, DO Facility: [facility] Date of Surgery: 06/28/2025 SURGEON: So Ramsey DO PREOP DX: Comminuted left peritrochanteric femur fracture POSTOP DX: Same PROCEDURES: ORIF of left peritrochanteric femur fracture with long cephalomedullary nail DOOR TO DOOR SALES REPRESENTATIVE: None COMPLICATIONS: None ANESTHESIA: General EBL: 200 IMPLANTS USED: Jim/Biomet natural nail 380 mm x 10 mm x 130 degrees 110 mm x 10.5mm lag screw 55 mm x 5.5 mm distal interlocking screw CONDITION: Satisfactory to PACU. INDICATION FOR PROCEDURE: This patient is a 84 y.o.-year-old male who presents after sustaining a mechanical fall onto his left hip. Patient was out to dinner with his when she fell. The patientattempted to catch his and she fell on top of him directly onto his left hip. He felt immediate pain was unable to bear weight. He was brought to [facility] where x-rays of the l eft hip were obtained which demonstrated a comminuted peritrochanteric left hip fracture. Orthopedic surgery was consulted for further evaluation and treatment. Wrist benefits and alternatives to operative treatment were discussed at length with the patient and ultimate decision was made to proceedwith cephalomedullary nail of the left hip. PROCEDURE IN DETAIL: Patient was seen in the preoperative holding area. The operative extremity wasmarked. Informed consent was obtained. Patient was then taken back to the operative suite. General anesthesia was induced by the anesthesia department on the hospital bed. Patient was then placed in traction boots and transferred over to the [place] traction table and placed in the supine position. The left arm was placed over the chest on a stack of blankets and taped into position. Fracture reduction was performed with a combination of inline traction, internal rotation and adduction. Prior to prepping and draping, preoperative x-rays were obtained confirming fracture reduction. There was noted to still be a large segment of the lateral/anterior cortex that was in varus, however the medial calcar was noted to be well reduced. Patient was then prepped and draped in normal sterile fashion. Prior to initiation of the procedure, a preincision timeout was performed confirming patient's identity, planned procedure and correct surgical site. Patient had received 2 g of IV Ancef as well as IV TXA. A stab incision was then made over the apex of the lateral fragment. Dissection was taken down through skin subcutaneous tissue and the IT band. A blunt tamp was then placed on the lateral aspect of the fracture and pushed medial. This resulted in improvement of the fracture reduction. A stab incision was then made proximal to the tip of the greater trochanter. Threaded guidewire was then inserted on the greater trochanter. Positioning of the guidewire was then fine- tuned alternating between 2 guidewires using the offset guide. Once we were happy with the positioning of the guidewire just medial to the tip of the greater trochanter and centered in the tip of the greater trochanter and femoral neck on the lateral image, the guidewire was then advanced and seated to the appropriate depth. The opening reamer was then inserted over the tip of the guidewire and reamed to the appropriate depth. Fracture reduction was maintained throughout reaming and special attention was paid to ensure that the trajectory of the opening reamer was in line with the medullary canal on the AP and lateral image. The opening reamer and guidewire were then removed and a ball- tipped guidewire was then placed into the opening reamed hole. Sequential reaming was then performed starting with size 9 mm up to a 11.5 mm. Depth of the guidewire was then measured and found to be 380 mm. A 380 x 10 mm x 130 degree Jim natural nail was then inserted over the ball-tipped guidewire and seated to the appropriate depth. Ball-tipped guidewire was then removed. A additional stab incision was made on the lateral aspect of the thigh to accommodate the guidewire and trocar for the lag screw. The trocar was insertedthrough the stab incision and aiming arm jig and seated on the lateral aspect of the femur. Guidewire was then advanced in a low center position on the AP and posterior central position on the lateral. Depth of the guidewire was then measured and found to be 110 mm. The anterior lateral fragment was noted to not be captured by the guidewire due to anterior nature of the fracture line. An additional K wire was then placed in order to attempt to control that segment while reaming occurred. The guidewire for the lag screw was then overreamed to a depth of 110 mm. A 110 mm lag screw was then inserted over the guidewire and seated to the appropriate depth. AP and lateral fluoroscopic images wereobtained with excellent reduction of the medial calcar on the AP view, however there was noted to be flexion of the anterior lateral segment lateral view. At this point it was felt that the biologic cost to the fracture would be too great to attempt to improve the reduction of the lateral cortex and that the medial calcar was well lined up to allow for stability and healing of the fracture. The proximal setscrew was then engaged and locked statically. Attention was then turned to the distal interlocking screw where a lateral to medial distal interlocking bolt was placed in the distalmost holeusing perfect match-e-be-nash-she-wish band technique. This hole was drilled and measured and found to be 55 mm in length.A 55 mm x 5.5 mm distal interlocking bolt was then placed from lateral to medial. Final AP and lateral fluoroscopic images were obtained again confirming fracture reduction and proper placement of the hardware. The wounds were then thoroughly irrigated with normal saline. Prior to initiation of closure, all counts were correct. The deep dermal layer was then reapproximated using 2-0 Vicryl in buried interrupted fashion. The skin was then closed with martín. The wounds were then dressed with Aquacel Ag island dressings. Patient was then transferred over the hospital bed, awoken from anesthesia and taken to PACU in stable condition. All counts were correct x 2 and no complications were encountered throughout the procedure. Postoperative plan: Patient will be weightbearing as tolerated on the left lower extremity. He will get 24 hours of postoperative antibiotics in the form of Ancef. He will start on DVT prophylaxis on postop day 0 in theform of Lovenox. He will transition to oral DVT prophylaxis had a minimum of aspirin 81 mg twice daily for 6 weeks. Patient is from [facility] and will follow-up with a orthopedic surgery associated with [facility] or [facility] in 2 weeks. If they remain in the [place] area for rehab, I will be happy to see them back in clinic in 2 weeks for a wound check. Electronically signed So Ramsey DO 06/29/2025 [facility] Progress Note Subjective: Interval History: Status postORIF of left peritrochanteric femur fracture with long cephalomedullary nail on 06/29/2025 Patient seen at bedside pain is tolerable Continuous Infusions: Infusions Meds 0.9 % sodium chloride 75 mL/hr (06/30/25 0860) 0.9 % sodium chloride irrigation lactated ringer's Stopped (06/29/25 7552) Objective: Vital signs in last 24 hours: Temp: [97.1 F (36.2 C)-98.4 F (36.9 C)] 98.4 F (36.9 C) Pulse: [66-87] 78 Resp: [12-28] 17 BP: (108-152)/(51-72) 139/68 Intake/Output last 3 shifts: I/O last 3 completed shifts: In: 3124.3 [I.V.:2796.5; IV Piggyback:327.8] Out: 550 [Urine:350; Blood:200] Intake/Output this shift: No intake/output data recorded. Last BMP Result: Recent Labs Lab 06/29/25 0432 NA 129* K 4.6 CL 100 CO2 24 BUN 16 CREATININE 1.48* GLU 99 CALCIUM 8.0* Last CBC Result: Recent Labs Lab 06/29/25 0432 WBC 9.7 HEMOGLOBIN 10.7* HCT 31.2* PLT 264 RBC 3.20* No results for input(s): PROTIME , INR in the last 72 hours. Current meds Scheduled Meds: Scheduled Medications amLODIPine 5 mg Oral DAILY aspirin 81 mg Oral DAILY atorvastatin 40 mg Oral DAILY ceFAZolin (ANCEF) standard IM/IVPB 2,000 mg Intravenous 3 times per day enoxaparin (LOVENOX) injection (30 or 40 mg DVT Prophylaxis) 40 mg Subcutaneous DAILY AT 0800 lisinopriL 40 mg Oral DAILY magnesium oxide 200 mg Oral DAILY pantoprazole 40 mg Intravenous Daily at 0600 ROPivacaine (PF) Continuous Infusions: Infusions Meds 0.9 % sodium chloride 75 mL/hr (06/30/25 0540) 0.9 % sodium chloride irrigation lactated ringer's Stopped (06/29/25 1604) PRN Meds:. PRN Medications 0.9 % sodium chloride irrigation, acetaminophen, docusate, HYDROmorphone, ketorolac, melatonin, ondansetron OR ondansetron, oxyCODONE-acetaminophen, oxyCODONE-acetaminophen, ROPivacaine (PF) Physical Exam: Vitals Vitals: 06/30/25 0049 06/30/25 0645 06/30/25 0955 06/30/25 1045 BP: 139/68 Pulse: Resp: 18 17 17 Temp: SpO2: Weight: Height: General appearance : Comfortable male L:CTA, no W/R/R, not labored H:RRR, S1S2 Abd:Soft ND/NT, normal BS Ext: Left hip surgical site clean and dry covered with Aquacel Orders Placed This Encounter Procedures Diet-NPO After Midnight Nothing By Mouth-NPO Assessment: Principal Problem: Closed left hip fracture, initial encounter ([facility]) Plan: Left hip fracture secondary to mechanical fall Status postORIF of left peritrochanteric femur fracture with long cephalomedullary nail on 06/29/2025 Ortho input appreciated Hyponatremia sodium level 129 was on IV fluids, will hold fluids Hypertension Obstructive sleep apnea wears CPAP at night HTN continue Norvasc continue lisinopril Hyperlipidemia continue statin CODE STATUS full DVT prophylaxis Lovenox Discussed with multiple family members at bedside Follow CBC and BMP tomorrow Baljinder Carrillo MD 06/30/2025 This chart entry has been completed using [employer] Dictation Software. While attempts have been made to ensure accuracy, certain words and phrases may not be entered as intended. Ordered 2ww thru Medical Service General Report/ Additional Comments CONSULTING PHYSICIANS: End PACC Summary Risk of Admission or ED Visit Current as of 22 minutes ago 11% 40 to 100%: High Risk 20 to 39.999%: Medium Risk 0 to 19.999%: Low Risk No Change This score indicates an adult patient's 1-year risk, as a percentage, of a hospital admission or EDvisit. Current PCP: Sai Anderson MD Hospital Admissions: 1 ED Visits: 1 Has Medicaid: No Has Medicare: Yes In relationship: Yes Has Anemia: No Has Asthma: No Has Atrial Fibrillation: No Has CVD: No Has Chronic Kidney Disease: No Has Chronic Obstructive Pulmonary Disease: No Has Congestive Heart Failure: No Has Connective Tissue Disorder: No Has Depression: No Has Diabetes Excluding Gestational Diabetes: No Has Liver Disease: No Has Peripheral Vascular Disease: Yes Discharge Date PENDING Referral Source (PACC/Hospital/Unit) [facility] Date 06/30/25 3:00 PM End PACC Note * Aline Rogers PA-C - 06/30/2025 12:37 PM EDT Orthopedic progress note: Postop day : Cephalomedullary Nail, Left Hip Patient seen at bedside reports pain is well-controlled. He has not yet been up with therapy today.He may continue to be weightbearing as tolerated to the left lower extremity. Continue with anticoagulation, therapies as tolerated, discharge planning and pain control. We will reassess his ability to be discharged after therapy is completed. * Baljinder Carrillo MD - 06/30/2025 9:44 AM EDT [facility] [facility] Progress Note Subjective: Interval History: Status postORIF of left peritrochanteric femur fracture with long cephalomedullary nail on 06/29/2025 Patient seen at bedside pain is tolerable Continuous Infusions: 0.9 % sodium chloride 75 mL/hr (06/30/25 0594) 0.9 % sodium chloride irrigation lactated ringer's Stopped (06/29/25 8144) Objective: Vital signs in last 24 hours: Temp: [97.1 F (36.2 C)-98.4 F (36.9 C)] 98.4 F (36.9 C) Pulse: [66-87] 78 Resp: [12-28] 17 BP: (108-152)/(51-72) 139/68 Intake/Output last 3 shifts: I/O last 3 completed shifts: In: 3124.3 [I.V.:2796.5; IV Piggyback:327.8] Out: 550 [Urine:350; Blood:200] Intake/Output this shift: No intake/output data recorded. Last BMP Result: Recent Labs Lab 06/29/25 043 NA 129* K 4.6 CL 100 CO2 24 BUN 16 CREATININE 1.48* GLU 99 CALCIUM 8.0* Last CBC Result: Recent Labs Lab 06/29/25 0432 WBC 9.7 HEMOGLOBIN 10.7* HCT 31.2* PLT 264 RBC 3.20* No results for input(s): PROTIME , INR in the last 72 hours. Current meds Scheduled Meds: amLODIPine 5 mg Oral DAILY aspirin 81 mg Oral DAILY atorvastatin 40 mg Oral DAILY ceFAZolin (ANCEF) standard IM/IVPB 2,000 mg Intravenous 3 times per day enoxaparin (LOVENOX) injection (30 or 40 mg DVT Prophylaxis) 40 mg Subcutaneous DAILY AT 0800 lisinopriL 40 mg Oral DAILY magnesium oxide 200 mg Oral DAILY pantoprazole 40 mg Intravenous Daily at 0600 ROPivacaine (PF) Continuous Infusions: 0.9 % sodium chloride 75 mL/hr (06/30/25 0540) 0.9 % sodium chloride irrigation lactated ringer's Stopped (06/29/25 1604) PRN Meds:.0.9 % sodium chloride irrigation, acetaminophen, docusate, HYDROmorphone, ketorolac, melatonin, ondansetron OR ondansetron, oxyCODONE- acetaminophen, oxyCODONE-acetaminophen, ROPivacaine(PF) Physical Exam: Vitals: 06/30/25 0049 06/30/25 0645 06/30/25 0955 06/30/25 1045 BP: 139/68 Pulse: Resp: 18 17 17 Temp: SpO2: Weight: Height: General appearance : Comfortable male L:CTA, no W/R/R, not labored H:RRR, S1S2 Abd:Soft ND/NT, normal BS Ext: Left hip surgical site clean and dry covered with Aquacel Orders Placed This Encounter Procedures Diet-NPO After Midnight Nothing By Mouth-NPO Assessment: Principal Problem: Closed left hip fracture, initial encounter ([facility]) Plan: Left hip fracture secondary to mechanical fall Status postORIF of left peritrochanteric femur fracture with long cephalomedullary nail on 06/29/2025 Ortho input appreciated Hyponatremia sodium level 129 was on IV fluids, will hold fluids Hypertension Obstructive sleep apnea wears CPAP at night HTN continue Norvasc continue lisinopril Hyperlipidemia continue statin CODE STATUS full DVT prophylaxis Lovenox Discussed with multiple family members at bedside Follow CBC and BMP tomorrow Baljinder Carrillo MD 06/30/2025 This chart entry has been completed using lang[employer]ojination Software. While attempts have been made to ensure accuracy, certain words and phrases may not be entered as intended. * Dimitri Vasquez RN - 06/29/2025 5:28 PM EDT Patient returned from surgery. AOx4. VSS. Tylenol given. Drinking fluids. Surgical dressing. Clean,dry, intact. * AKHIL Hunter OTR/L - 06/29/2025 12:36 PM EDT Occupational Therapy Evaluation Attempt Admit date: 06/28/2025 Today's Date: 06/29/2025 Patient Name/MR#: Joo Allen [id number] [address] Admitting Diagnosis: Closed left hip fracture, initial encounter ([facility]) [S72.002A] Fall from standing, initial encounter [W19.XXXA] Intertrochanteric fracture, closed, left, initial encounter ([facility]) [S72.142A] Admitting Provider: Philip Farias MD Evaluation Attempt Date Initial Eval Attempted: 06/29/25 Time Initial Eval Attempted: 1235 Reason Eval Not Completed: Therapy medically contraindicated at current time (pt with acute hip fx,sx pending.) * Baljinder Carrillo MD - 06/29/2025 9:38 AM EDT [facility] Progress Note Subjective: Interval History: pt seen at bedside Left hip pain is tolerable Patient is scheduled for surgery today Continuous Infusions: 0.9 % sodium chloride Stopped (06/29/25 1240) lactated ringer's Objective: Vital signs in last 24 hours: Temp: [97.3 F (36.3 C)-98.5 F (36.9 C)] 98.1 F (36.7 C) Pulse: [65-75] 73 Resp: [16-18] 16 BP: (112-140)/(55-70) 139/63 FiO2 (%): [21 %] 21 % Intake/Output last 3 shifts: No intake/output data recorded. Intake/Output this shift: I/O this shift: In: - Out: 350 [Urine:350] Last BMP Result: Recent Labs Lab 06/29/25 0432 NA 129* K 4.6 CL 100 CO2 24 BUN 16 CREATININE 1.48* GLU 99 CALCIUM 8.0* Last CBC Result: Recent Labs Lab 06/29/25 0432 WBC 9.7 HEMOGLOBIN 10.7* HCT 31.2* PLT 264 RBC 3.20* No results for input(s): PROTIME , INR in the last 72 hours. Current meds Scheduled Meds: amLODIPine 5 mg Oral DAILY aspirin 81 mg Oral DAILY atorvastatin 40 mg Oral DAILY BUPivacaine (PF) 30 mL Injection ONCE ceFAZolin (ANCEF) IVPB 2 g Intravenous ONCE lisinopriL 40 mg Oral DAILY magnesium oxide 200 mg Oral DAILY pantoprazole 40 mg Intravenous Daily at 0600 ROPivacaine (PF) tranexamic acid 1,000 mg Intravenous ONCE Continuous Infusions: 0.9 % sodium chloride Stopped (06/29/25 1240) lactated ringer's PRN Meds:.acetaminophen, docusate, ketorolac, melatonin, ondansetron OR ondansetron, ROPivacaine (PF) Physical Exam: Vitals: 06/29/25 0047 06/29/25 0829 06/29/25 0832 06/29/25 1142 BP: (!) 140/63 (!) 140/63 139/63 Pulse: 66 73 Resp: 17 16 16 Temp: 98.1 F (36.7 C) 98.1 F (36.7 C) 98.1 F (36.7 C) SpO2: 98% 100% 100% Weight: Height: General appearance : L:CTA, no W/R/R, not labored H:RRR, S1S2 Abd:Soft ND/NT, normal BS Ext: no edema Orders Placed This Encounter Procedures Diet-NPO Diet-NPO After Midnight Nothing By Mouth-NPO Assessment: Principal Problem: Closed left hip fracture, initial encounter ([facility]) Plan: Left hip fracture secondary to mechanical fall continue pain control continue n.p.o. patient is scheduled for surgery Ortho input appreciated Hyponatremia sodium level 129 continue IV fluids Hypertension Obstructive sleep apnea wears CPAP at night HTN continue Norvasc continue lisinopril Hyperlipidemia continue statin CODE STATUS full DVT prophylaxis SCD for now Will add lovenox Discussed with multiple family members at bedside Baljinder Carrillo MD 06/29/2025 This chart entry has been completed using [employer] Dictation Software. While attempts have been made to ensure accuracy, certain words and phrases may not be entered as intended. * Jack Holt PT Student - 06/29/2025 8:35 AM EDT Physical Therapy Evaluation Attempt Admit date: 06/28/2025 Today's Date: 06/29/2025 Patient Name/MR#: Joo Allen [id number] Current Room: [address] Admitting Diagnosis: Closed left hip fracture, initial encounter ([facility]) [S72.002A] Fall from standing, initial encounter [W19.XXXA] Intertrochanteric fracture, closed, left, initial encounter ([facility]) [S72.142A] Admitting Provider: Philip Farias MD Evaluation Attempt Date Initial Eval Attempted: 06/29/25 Time Initial Eval Attempted: 830 Reason Eval Not Completed: Therapy medically contraindicated at current time (Pt scheduled for cephalomedullary nail fixation of left hip, MD Loren Mortensen. PT to hold until pt cleared.) Cosigned by Christianne Dennis PT, DPT at 06/29/2025 1:05 PM EDT Associated attestation - Christianne Dennis PT, DPT - 06/29/2025 1:05 PM EDT Licensed PT was present for entire session and directed the service, provided skilled judgment and assessment, and assumed responsibility for treatment provided. Documentation has been reviewed by licensed therapist and accurately reflects the services that were provided. * Sherrill Cox RN - 06/29/2025 12:19 AM EDT Images from the original note were not included. 4 Eyes in 4 Hours Admission/Transfer Wound Evaluation of Pressure Points All pressure points below have been assessed. Large bruise present on right elbow, no other skin issues present on admission. If Pressure injury present, please complete the following: Location of abnormal finding: NA Add Pressure Injury to LDA/Wound Flowsheet (Describe and measure wound) Order Wound Care Consult per pressure injury prevention policy Enter photo into media (with measuring device and pt. identifier) per policy If new admission to hospital: Wound RN to create Present on Admission (POA) Wound Note Name of 2nd RN performing assessment: Yessy Norris NA [facility] NoteEnc[facility] Department: [facility] 4 MAIN Discharge Summary by Baljinder Carrillo MD at 07/02/2025 12:11 PM Author: SHAE Moultonervice: HospitalistAuthor Type: Physician Filed: 07/02/2025 12:19 PMDate of Service: 07/02/2025 12:11 PMStatus: Addendum Clerk Operator: Baljinder Carrillo MD (Physician) Related Notes: Original Note by Baljinder Carrillo MD (Physician) filed at 07/02/2025 12:19 PM [facility] Discharge Summary Patient ID: Joo Allen [id number] 84 y.o. 1940 Admit date: 06/28/2025 Discharge date and time: 07/02/2025 Admitting Physician: Philip Farias MD Discharge Physician: Baljinder Carrillo MD Discharge Diagnoses: Problem List Patient Active Problem List Diagnosis -Closed left hip fracture, initial encounter ([facility]) Left hip fracture status post mechanical fall status postleft peritrochanteric femur fracture with long cephalomedullary nail on 06/29/2025 Mild hyponatremia improved Acute renal failure secondary to dehydration Acute anemia secondary to hemodilution Obstructive sleep apnea Hypertension Hyperlipidemia Discharged Condition: good Consults: ED CONTACT ORDER ED CONTACT ORDER IP CONSULT TO ORTHOPEDIC SURGERY Significant Diagnostic Studies: See Epic for details and results Imaging :Radiology: XR-HIP LEFT 1 VIEW WO/ PELVIS Result Date: 06/29/2025 EXAM: XR-HIP LEFT 1 VIEW WO/ PELVIS [id number] DATE OF SERVICE: 06/29/2025 3:52 pm DEMOGRAPHICS: Age: 84 y/o M HISTORY: Gamma nail COMPARISON: Radiographs of the left hip from 06/28/2025. TECHNIQUE: A total of 9 intraoperative fluoroscopic views of the left hip were obtained. Total Images: 9 FINDINGS: Intraoperative fluoroscopy was utilized for guidance and documentation and performing ORIF of a comminuted intertrochanteric fracture of the proximal left femur. Intraoperative fluoroscopy for guidance and documentation and performing ORIF of a comminuted intertrochanteric fracture of the left femur. This dictation was created with voice recognition software. While attempts have been made to review the dictation as it is transcribed, on occasion the spoken word can be misinterpreted by the technology leading to omissions or inappropriate words, phrases or sentences. Electronically Signed by: Leonard Deleon DO, 06/29/2025 5:30 PM Dictation workstation: [id number] XR-HIP UNI LEFT 2/3 VIEWS W/PELVIS Result Date: 06/28/2025 EXAM: XR-HIP UNI LEFT 2/3 VIEWS W/PELVIS [id number] DATE OF SERVICE: 06/28/2025 7:56 pm DEMOGRAPHICS: Age: 84 y/o M HISTORY: fall, left hip deformity and pain COMPARISON: No existing relevant imaging study corresponding to the same anatomical region is available. TECHNIQUE: 2 view(s) of the Left hip(s) and a single AP view of the pelvis were obtained. Total Images: 2 FINDINGS: There is a comminuted and displaced intertrochanteric fracture of the left femur. There is medial displacement of the distal fracture fragment. Mild varus angulation. The joint spaces are maintained. There is no significant soft tissue swelling. 1. Comminuted and displaced intertrochanteric fracture of the left femur with mild varus angulation. This dictation was created with voice recognition software. While attempts have been made to review the dictation as it is transcribed, on occasion the spoken word can be misinterpreted by the technology leading to omissions or inappropriate words, phrases or sentences. Electronically Signed by: aSúl Saeed DO, 06/28/2025 8:16 PM Dictation workstation: [id number] XR-ELBOW LEFT 3 OR MORE VIEWS Result Date: 06/28/2025 EXAM: XR-ELBOW LEFT 3 OR MORE VIEWS [id number] DATE OF SERVICE: 06/28/2025 7:55 pm DEMOGRAPHICS: Age: 84 y/o M HISTORY: Fall fall, swelling of left elbow COMPARISON: No existing relevant imaging study corresponding to the same anatomical region is available. TECHNIQUE: Three view(s) of the left elbow was/were obtained. Total Images: 3 FINDINGS: The osseous structures are intact. The joint spaces are maintained. Soft tissue calcifications are noted adjacent to the proximal ulna on the posterior side. 1. No acute findings This dictation was created with voice recognition software. While attempts have been made to review the dictation as it is transcribed, on occasion the spoken word can be misinterpreted by the technology leading to omissions or inappropriate words, phrases or sentences. Electronically Signed by: Priyanka Kirkland DO, 06/28/2025 8:12 PM Dictation workstation: [id number] CT-SPINE CERVICAL WO CONTRAST Result Date: 06/28/2025 EXAM: CT-SPINE CERVICAL WO CONTRAST [id number] DATE OF SERVICE: 06/28/2025 7:37 pm DEMOGRAPHICS: Age: 84 y/o M HISTORY: fall fall on ASA COMPARISON: No existing relevant imaging study corresponding to the same anatomical region is available. TECHNIQUE: DOSE OPTIMIZATION: CT radiation dose optimization techniques (automated exp (more content not included)...[facility]10-17-2025 Hospital course Narrative* Baljinder Carrillo MD - 07/02/2025 12:11 PM EDT Images from the original note were not included. [facility] Discharge Summary Patient ID: Joo Allen [id number] 84 y.o. 1940 Admit date: 06/28/2025 Discharge date and time: 07/02/2025 Admitting Physician: Philip Farias MD Discharge Physician: Baljinder Carrillo MD Discharge Diagnoses: Problem List[1] Left hip fracture status post mechanical fall status postleft peritrochanteric femur fracture with long cephalomedullary nail on 06/29/2025 Mild hyponatremia improved Acute renal failure secondary to dehydration Acute anemia secondary to hemodilution Obstructive sleep apnea Hypertension Hyperlipidemia Discharged Condition: good Consults: ED CONTACT ORDER ED CONTACT ORDER IP CONSULT TO ORTHOPEDIC SURGERY Significant Diagnostic Studies: See Epic for details and results Imaging :Radiology: XR-HIP LEFT 1 VIEW WO/ PELVIS Result Date: 06/29/2025 EXAM: XR-HIP LEFT 1 VIEW WO/ PELVIS [id number] DATE OF SERVICE: 06/29/2025 3:52 pm DEMOGRAPHICS:Age: 84 y/o M HISTORY: Gamma nail COMPARISON: Radiographs of the left hip from 06/28/2025. TECHNIQUE: A total of 9 intraoperative fluoroscopic views of the left hip were obtained. Total Images: 9 FINDINGS: Intraoperative fluoroscopy was utilized for guidance and documentation and performing ORIF ofa comminuted intertrochanteric fracture of the proximal left femur. Intraoperative fluoroscopy for guidance and documentation and performing ORIF of a comminuted intertrochanteric fracture of the left femur. This dictation was created with voice recognition software.While attempts have been made to review the dictation as it is transcribed, on occasion the spoken word can be misinterpreted by the technology leading to omissions or inappropriate words, phrases orsentences. Electronically Signed by: Leonard Deleon DO, 06/29/2025 5:30 PM Dictation workstation:[id number] XR-HIP UNI LEFT 2/3 VIEWS W/PELVIS Result Date: 06/28/2025 EXAM: XR-HIP UNI LEFT 2/3 VIEWS W/PELVIS [id number] DATE OF SERVICE: 06/28/2025 7:56 pm DEMOGRAPHICS: Age: 84 y/o M HISTORY: fall, left hip deformity and pain COMPARISON: No existing relevant imaging study corresponding to the same anatomical region is available. TECHNIQUE: 2 view(s) of the Lefthip(s) and a single AP view of the pelvis were obtained. Total Images: 2 FINDINGS: There is a comminuted and displaced intertrochanteric fracture of the left femur. There is medial displacement of the distal fracture fragment. Mild varus angulation. The joint spaces are maintained. There is no significant soft tissue swelling. 1. Comminuted and displaced intertrochanteric fracture of the left femur with mild varus angulation. This dictation was created with voice recognition software. While attempts have been made to review the dictation as it is transcribed, on occasion the spoken word can be misinterpreted by the technology leading to omissions or inappropriate words, phrases or sentences. Electronically Signed by: Saúl Saeed DO, 06/28/2025 8:16 PM Dictation workstation: [id number] XR-ELBOW LEFT 3 OR MORE VIEWS Result Date: 06/28/2025 EXAM: XR-ELBOW LEFT 3 OR MORE VIEWS [id number] DATE OF SERVICE: 06/28/2025 7:55 pm DEMOGRAPHICS:Age: 84 y/o M HISTORY: Fall fall, swelling of left elbow COMPARISON: No existing relevant imaging study corresponding to the same anatomical region is available. TECHNIQUE: Three view(s) of the left elbow was/were obtained. Total Images: 3 FINDINGS: The osseous structures are intact. The joint spaces are maintained. Soft tissue calcifications are noted adjacent to the proximal ulna on the posterior side. 1. No acute findings This dictation was created with voice recognition software. While attempts have been made to review the dictation as it is transcribed, on occasion the spoken word can be misinterpreted by the technology leading to omissions or inappropriate words, phrases or sentences. Electronically Signed by: Priyanka Kirkland DO, 06/28/2025 8:12 PM Dictation workstation: [id number] CT-SPINE CERVICAL WO CONTRAST Result Date: 06/28/2025 EXAM: CT-SPINE CERVICAL WO CONTRAST [id number] DATE OF SERVICE: 06/28/2025 7:37 pm DEMOGRAPHICS:Age: 84 y/o M HISTORY: fall fall on ASA COMPARISON: No existing relevant imaging study corresponding to the same anatomical region is available. TECHNIQUE: DOSE OPTIMIZATION: CT radiation dose optimization techniques (automated exposure control, and use of iterative reconstruction techniques, or adjustment of the mA and/or kV according to patient size) were used to limit patient radiation dose. TECHNICAL DESCRIPTION: Contiguous axial slices of the cervical spine were submitted without IV administration of contrast. Additional coronal and sagittal reformatted images were submitted. FINDINGS: Grade 1 anterolisthesis at C4-5.Theremaining cervical lordosis is maintained. The vertebral body heights are normal. The mineralization is normal. No acute fracture or subluxation is seen. The atlantoaxial jointdemonstrates degenerative changes. Incomplete fusion of the posterior arch of C1 which is c ongenital. Uncovertebral and endplate osteophytosis is seen. No prevertebral soft tissue abnormality is seen. Multilevel disc height loss most prominent at C5-6 with severe narrowing with a posteriordisc osteophyte complex. Posterior disc osteophyte complexes at C3-4, C4-5, and C6-7. Pgek-bl-wqgiqjni central canal stenosis at C5-6. Multilevel foraminal stenosis is seen secondary to uncovertebralosteophytosis and facet arthropathy which is advanced at multiple levels. 1. No CT evidence of acute traumatic injury in the cervical spine. 2. Multilevel degenerative spondylosis of the cervical spine as noted above. This dictation was created with voice recognition software. While attempts have been made to review the dictation as it is transcribed, on occasion the spoken word can be misinterpreted by the technology leading to omissions or inappropriate words, phrases or sentences. Electronically Signed by: Marlon Covarrubias MD, 06/28/2025 8:03 PM Dictation workstation: [id number] CT-HEAD W/O CONTRAST Result Date: 06/28/2025 EXAM: CT-HEAD W/O CONTRAST [id number] DATE OF SERVICE: 06/28/2025 7:37 pm DEMOGRAPHICS: Age: 84 y/o M HISTORY: fall. pt denies head injury fall, on ASA COMPARISON: No existing relevant imaging study corresponding to the same anatomical region is available. TECHNIQUE: DOSE OPTIMIZATION: CT radiation dose optimization techniques (automated exposure control, and use of iterative reconstruction techniques, or adjustment of the mA and/or kV according to patient size) were used to limit patient radiation dose. TECHNICAL DESCRIPTION: Contiguous axial slices of the head were submitted without IV contrast. FINDINGS: Sinuses and mastoids: There are no fluid levels. Orbits: No acute orbital abnormality. Brain: Ventricles and sulci are at the upper limits of normal in caliber. There is no midline shift. Dural calcifications are noted. Vascular calcifications are noted. Minimal white-matter small-vessel ischemic changes are noted. There is no parenchymal or extra-axial hematoma. 1. Minimal small-vessel ischemic changes 2. No acute hemorrhage. This dictation was created with voice recognition software. While attempts have been made to review the dictation as it is transcribed, on occasion the spoken word can be misinterpreted by the technology leading to omissions or inappropriate words, phrases or sentences. Electronically Signed by: Abdulkadir Pelaez MD, 06/28/2025 7:55 PM Dictation workstation: [id number] CA ECHO DOPPLER COMPLETE Result Date: 06/02/2025 [place] [address] Cardiology Report Signed Patient: JOO ALLEN MR#: [id number] : 1940 Acct:[id number] Age/Sex: 84 / M ADM Date: 06/02/25 Loc: CARD Attending Dr: VALERIA STOKES APRN Ordering Physician: VALERIA STOKES APRN Date of Service: 0 06/02/25 Procedure(s): CA echo doppler complete Accession Number(s): [id number] cc: SAI ANDERSON ; VALERIA STOKES APRN Patient Name: JOO ALLEN MR#: [id number] : 1940 Exam Date: 06/02/2025 Ordering Doctor: VALERIA STOKES [facility] NURSE ECHOCARDIOGRAM REPORT PROCEDURE: CA ECHO DOPPLER COMPLETE INDICATIONS: Tricuspid valve regurgitation, hypertension COMPARISON: None. DESCRIPTION: COMPLETE ECHOCARDIOGRAM Real-time transthoracic echocardiography with 2D, M-mode, spectral and color flow Doppler performed. QUALITY: Technical quality was good. LEFT VENTRICLE: Normal chamber size. Mild left ventricular hypertrophy. LV EF: Global left ventricular systolic function is normal; visually estimated ejection fraction is 60-65%. No wall motion abnormalities. DIASTOLIC: Normal diastolic function. ATRIAL SEPTUM: Visually appears intact. LEFT ATRIUM: Moderate dilatation. RIGHT ATRIUM: Moderate dilatation. RIGHT VENTRICLE: Mild dilatation. Normal systolic function. TRICUSPID VALVE: Normal mobility and thickness. No stenosis with mild regurgitation. No evidence of pulmonary hypertension. RVSP 27 mmHg MITRAL VALVE: Normal mobility and thickness. No evidence of mitral valve stenosis. There is no mitral annular calcification. Mild mitral regurgitation. AORTIC VALVE: Normal trileaflet appearance. Moderately calcified aortic valve. Mildly diminished mobility. No evidence of aortic valve stenosis. DVI 0.6. Mild aortic regurgitation. AORTIC ROOT: Normal diameter and appearance. Ascending aorta and aortic arch are normal in size. PULMONIC VALVE: Normal thickness and mobility. No stenosis. PERICARDIUM: No evidence of pericardial effusion. IVC: Collapses with inspiration. CONCLUSION: 1. Global left ventricular systolic function is normal; visually estimated ejection fraction is 60-65% 2. The right ventricle is mildly dilated with normal systolic function 3. Normal diastolic function 4. Mild left ventricular hypertrophy 5. Biatrial dilatation 6. Mild tricuspid regurgitation 7. Mild mitral regurgitation 8. Mild aortic valve regurgitation Adult Echocardiography Procedure Report Left Ventricle LVEDD (3.7 - 5.6 cm): 5.48 cm LVESD (2.2 - 4.0 cm): 2.90 cm LVIVS thickness (0.6 - 1.2 cm): 1.10 cm LVPW thickness (0.5 - 1.0 cm): 1.18 cm e': 0.11 m/s E - e': 5.94 LVOT Max Gradient: 4.65 mm60- LVOT Area (cm2): 1.08 m/s Peak Velocity (LVOT): 1.08 m/s Mean Velocity (LVOT): 0.73 m/s LVOT Diameter 2.25 cm Left Ventricular Ejection Fraction: 65.82 % Left Atrium LA Volume Index (2D A2C): 46.50 ml/m2 Left Atrium Systolic Dimension: 4.41 cm Mitral Valve MV E to A Ratio: 1.03 Mitral Valve A- Wave Peak Velocity: 0.61 m/s Mitral Valve E-Wave Peak Velocity: 0.63 m/s Right Ventricle Aorta AO Root Diam: 3.43 cm Ascending Ao Diam: 3.32 cm Aortic Valve AoV Area (Peak [place]): 2.28 cm2, 2.28 cm2 AoV Area (VTI): 2.47 cm2, 2.54 cm2 Deceleration [place]: 3.57 m/s2, 2.15 m/s2 Pressure Half-Time: 379.59 ms, 492.46 ms Peak Velocity(Antegrade Flow): 1.87 m/s, 1.59 m/s, 1.64 m/s Peak Gradi ent(Antegrade Flow): 14.02 mm[Hg], 10.09 mm[Hg], 10.74 mm[Hg] Mean Velocity(Antegrade Flow): 1.21 m/s, 1.17 m/s, 1.12 m/s Mean Gradient(Antegrade Flow): 6.91 mm[Hg], 6.05 mm[Hg], 5.75 mm[Hg] VelocityTime Integral: 38.66 cm, 39.70 cm, 35.29 cm Tricuspid Valve Peak Velocity (Regurgitant Flow): 2.47 m/s Pulmonic Valve Peak Gradient: 2.82 mm[Hg], 4.20 mm[Hg] Right Atrium Right Atrium Systolic Pressure: 94.47 ml, 94.47 ml Dictated by: Jesse Cabrera M.D. on 06/02/2025 at 12:34 Approved by: Jesse Cabrera M.D. on 06/02/2025 at 12:38 Dictated By: Jesse Cabrera M.D. Signed By: 06/02/25 1239 DD/ 1238 TD/TT: Supervisor Engine Repair: Procedures: Status postORIF of left peritrochanteric femur fracture with long cephalomedullary nailon 06/29/2025 Last BMP Result: Recent Labs Lab 07/02/25424 NA 131* K 4.7 CL 101 CO2 25 BUN 17 CREATININE 1.03 GLU 100 CALCIUM 8.4* Last CBC Result: Recent Labs Lab 07/02/25424 WBC 7.4 HEMOGLOBIN 8.4* HCT 23.4* PLT 248 RBC 2.44* No results for input(s): PROTIME , INR in the last 72 hours. No results found for: BNP Lab Results Component Value Date ALT 18 06/28/2025 AST 38 06/28/2025 No results found for: TRIG , HDL , CHOLHDL No results found for: HGBA1C No results found for: TSH No components found for: GLUFAST Summary of HPI: Joo Allen is an 84 y.o. male, past medical history of hypertension, obstructive sleep apnea on CPAP, presents after mechanical fall. Patient stated he was at [facility], spouse and him were leaving spouse tripped and fell backwards he went to prevent her from falling ended up falling himself and spouse falling on top of him, imaging shows left hip fracture. ED provider discussed case with on-call orthopedic surgery, will evaluate in AM. Patient endorses drinking every day, denies any alcohol withdrawal Patient on examination is alert, oriented x 3, no apparent distress. Afebrile, send stable. Patient denies any chest pain or shortness of breath. Anesthesiology was consulted for nerve block placement. Orthopedic surgery wanted patient placed in Mejia's traction . CT head. IMPRESSION: 1. Minimal small-vessel ischemic changes 2. No acute hemorrhage. X-ray left hip. IMPRESSION: 1. Comminuted and displaced intertrochanteric fracture of the left femur with mild varus angulation. Hospital Course: Given the concern of the his presentation and the concern for the possible multi-factorial etiologycontributing to patients symptomatology.Joo Allen was admitted On 06/28/2025 , evaluated and treated for Left hip fracture secondary to mechanical fall Status postORIF of left peritrochanteric femur fracture with long cephalomedullary nail on 06/29/2025 patient renal failure resolved patient hemoglobin was 8.0 patient has a chronic anemia issues could be dilutional Patient blood pressure medication dose was decreased with parameters Ortho recommended full dose aspirin for 1 month for DVT prophylaxis patient also initiated on iron PT OT evaluated him recommended home therapy today he will be discharged home in stable condition recommend to follow-up with Ortho as scheduled rest of the medical problems remained stable. Patient seen and examined on the day of discharge patient reached the maximum benefit of this hospitalization patient is hemodynamically stable tolerating dietitian consultant and staff in agreement with the discharge The patient expressed appropriate understanding of and agreement with the discharge recommendations, medications, and plan. Discharge Exam: Vitals: 07/01/25 1945 07/02/25 0427 07/02/25 0908 07/02/25 1003 BP: (!) 114/51 (!) 128/56 Pulse: 82 76 Resp: 16 16 18 16 Temp: 98.2 F (36.8 C) 98.1 F (36.7 C) SpO2: 98% 97% Weight: Height: General appearance AAOX3 not in distress L: CTA, no W/R/R, not labored H: RRR, S1 S2 Abdomen: soft NT,ND BS normal Extremities: Left hip surgical site clean and dry Disposition: Home Patient Instructions: Medication List START taking these medications ferrous sulfate 325 mg (65 mg iron) tablet Commonly known as: FeosoL Take 1 tablet (325 mg total) by mouth daily methocarbamoL 500 mg tablet Commonly known as: ROBAXIN Take 1 tablet (500 mg total) by mouth 3 times a day as needed for Muscle spasms oxyCODONE-acetaminophen 5-325 mg tablet Commonly known as: PERCOCET Take 1 tablet by mouth every 4 hours as needed polyethylene glycol 17 gram packet Commonly known as: MIRALAX Take 34 g by mouth daily as needed for Constipation CHANGE how you take these medications amLODIPine 5 mg tablet Commonly known as: NORVASC Take 0.5 tablets (2.5 mg total) by mouth daily Hold for SBP<110 mm hg Indications: high blood pressure What changed: how much to take additional instructions * aspirin 325 mg Cap Take 325 mg by mouth in the morning and 325 mg before bedtime. What changed: You were already taking a medication with the same name, and this prescription was added. Make sure you understand how and when to take each. * aspirin 81 mg chewable tablet Take 1 tablet (81 mg total) by mouth daily Restart after completion of full dose aspirin Indications: treatment to prevent a heart attack Start taking on: August 02, 2025 What changed: additional instructions These instructions start on August 02, 2025. If you are unsure what to do until then, ask your doctor or other care provider. lisinopriL 40 mg tablet Commonly known as: ZESTRIL Take 0.5 tablets (20 mg total) by mouth daily Hold for SBP<110 mm hg Indications: high blood pressure What changed: how much to take additional instructions * This list has 2 medication(s) that are the same as other medications prescribed for you. Read thedirections carefully, and ask your doctor or other care provider to review them with you. CONTINUE taking these medications atorvastatin 40 mg tablet Commonly known as: LIPITOR magnesium oxide 250 mg magnesium Tab tablet Commonly known as: MAG-OX omeprazole 20 mg delayed-release capsule Commonly known as: PRILOSEC STOP taking these medications nabumetone 750 mg tablet Commonly known as: RELAFEN Where to Get Your Medications These medications were sent to [facility] [address] [facility] [id number] Hours: M-F 7am-5pm aspirin 325 mg Cap ferrous sulfate 325 mg (65 mg iron) tablet methocarbamoL 500 mg tablet oxyCODONE-acetaminophen 5-325 mg tablet polyethylene glycol 17 gram packet Information about where to get these medications is not yet available Ask your nurse or doctor about these medications amLODIPine 5 mg tablet aspirin 81 mg chewable tablet lisinopriL 40 mg tablet Activity: activity as tolerated Diet: cardiac diet and low fat, low cholesterol diet Follow-up with Sai Anderson MD in 3-5 days. Total time spent on this discharge was 35 minutes including time spent with the patient, reviewing data, completing medical records, and communication with the patient and multidisciplinary team Signed: Baljinder Carrillo MD 07/02/2025 12:18 PM [1] Patient Active Problem List Diagnosis Closed left hip fracture, initial encounter (HCC) [facility] NoteEncounter Department: [facility] 4 MAIN Progress Notes by TIM Sandvoal at 07/02/2025 11:03 AM Author: TIM SandovalSerdaijae: OT TreatmentAuthor Type: Wood Stock Blank Handler Filed: 07/02/2025 4:11 PMDate of Service: 07/02/2025 11:03 AMStatus: Signed Clerk Operator: TIM Sandoval (Wood Stock Blank Handler)Cosigner: AKHIL Azevedo OTR/Nita at 07/05/2025 7:36 AM Occupational Therapy Treatment Admit date: 06/28/2025 Today's Date: 07/02/2025 Patient Name/MR#: Joo Allen [id number] [address] Ad[address] Diagnosis: Closed left hip fracture, initial encounter (HCC) [S72.002A] Fall from standing, initial encounter [W19.XXXA] Intertrochanteric fracture, closed, left, initial encounter (HCC) [S72.142A] Admitting Provider: Philip Farias MD Past Medical/Surgical History: has a past medical history of Hypertension. has no past surgical history on file. OT Discharge Recommendations 1. Occupational Therapy services recommended to continue after discharge: Yes 2. Supervision for safety required: multimedia manager supervision required: Unobserved for brief periods of time only but not left alone 3. Physical assistance required for daily care: Minimum Physical Assistance required: Caregiver supplies 1-25% of physical assistance 4. OT Discharge Equipment Needs If Returning Home: AD for Mobility OT Discharge Equipment Comments: FWW Functional Outcomes/Testing and Reporting Daily Activity AM-PAC 6 Click: 21 General - Subjective: Pt hoping to dc home today; able to recall and maintain posterior precautions - Current Medical Status: Pt is an 84 year old male who presents to the ED after a fall, landing on L hp. Imagine showed fracture of L femur, underwent nailing of L hip on 06/[address] Ramsey - Testing/Imaging: CT HEAD W/O CONTRAS IMPRESSION: 1. Minimal small-vessel ischemic changes 2. No acute hemorrhage. CT C-SPINE IMPRESSION: 1. No CT evidence of acute traumatic injury in the cervical spine. 2. Multilevel degenerative spondylosis of the cervical spine as noted above. XRAY L EBOW: (-) XRAY L HIP (06/28): IMPRESSION: 1. Comminuted and displaced intertrochanteric fracture of the left femur with mild varus angulation. XRAY L HIP (06/29) IMPRESSION: Intraoperative fluoroscopy for guidance and documentation and performing ORIF of a comminuted intertrochanteric fracture of the left femur. Home Environment Source: Patient Lives with: Spouse Type of Home: House Home Layout: One level, Laundry in basement (does not need to access) Home Access: Stairs to enter with rails Ascending Entrance Stairs- Rails: Right Entrance Stairs- Number of Steps: 2 Patient's Work/Caregiver Role: Retired (from ) Home Equipment Home Adaptive Equipment: Rollator Bed Type: Flat bed Shower/Tub: Walk-in shower Toilet: Comfort height Bathroom Equipment: Grab bars in shower Prior Functional Level ADLs: Independent IADLs/Health Management: Independent Driving/Transportation: Drives Functional Transfers: Independent Functional Mobility: Independent (Pt ambulates IND at baseline, no other falls within the last 3 months.) Rest/Sleep: Denies difficulty/normal sleep pattern Premorbid Communication: Wears glasses/contacts (Reading glasses) Premorbid Cognition: No known deficits Weightbearing Status LLE Weight Bearing: WBAT Therapy Precautions Fall Risk Additional Comments:Yellow Fall Risk Orthotics/Braces Session Beginning Location, Safety Info Upon Arrival Patient Location: In bed Upon Arrival Safety: Bed alarm on, Vitals stable Pain Assessment Pain Score: 0/10 Pain Location: LLE Oxygen Administration Details Oxygen Delivery Device: RA Activity [id number] [id number] During Activity Post [id number] Observations: denies adverse s/s, vitals monitored. Notice drop in BP post mobility; pt encouraged to keep up with water intake, keep up with mobility, not overdo it. TaskCurrent Assist LevelDevices, Other Details Grooming UB Dressing LB Dressing Minimal assist Bathing Toileting Bed Mobility Minimal assist Sit to/from Stand Minimal assist FWW Toilet Transfer Goals OT POC Due: 07/14/25 Grooming GOAL: Will complete grooming/simple hygiene with: [place] (standing) Treatment This Date: Grooming Status: Not Addressed During Today?s Session UB Dressing GOAL: Treatment This Date: LB Dressing GOAL: Will complete lower body (LB) dressing with: Modified independence Treatment This Date: LB Dressing Status: Progressing, ongoing LB Dressing Assist Level: Minimal assist Assistance Required for: Use of adaptive equipment Task(s) Completed: pt educated and provided with visual demo on gamma operator and sock aid for LB dressing. pt utilizes gamma operator to doff socks and sock aid to don. pt/family educated where to obtain equipment post dc P (more content not included)...[facility]10-17-2025 Plan of care note* Care Plan - Devaughn Torres RN - 07/02/2025 7:42 AM EDT End of Shift and Plan of Care Summary Patient has requested assist when needing to get out of bed, safety maintained. Patient has Lovenoxordered for DVT prophylaxis, no signs/symptoms of DVT observed. Pain was well managed with prn medications. Patient remains alert/oriented. Dressings remain clean, dry and intact. Goals per Patient Condition Fall Prevention Plan: Patient will remain free from falls. See the Daily cares/safety flowsheet forintervention documentation. DVT Prophylaxis in Use: Patient will remain free from DVT. See Daily cares/safety flowsheet for intervention documentation. Pain Management Plan: Patient is being monitored for pain and response to treatment. See Vital Signs Complex Assessment flowsheet and MAR for intervention documentation. Goals/Plan for shift Patient/Family stated goal for shift: pain control and moving the leg Nursing goal for shift: pain control, safety and comfort Plan: hourly rounding, medication management Goals/Plan for Hospital Stay Patient/Family stated goal for hospital stay: safety and comfort Nursing goal for hospital stay: safety and comfort Plan hr rounding and meds [facility]10-17-[facility] Miscellaneous Notes* Care Plan - Devaughn Torres RN - 07/02/2025 7:42 AM EDT End of Shift and Plan of Care Summary Patient has requested assist when needing to get out of bed, safety maintained. Patient has Lovenoxordered for DVT prophylaxis, no signs/symptoms of DVT observed. Pain was well managed with prn medications. Patient remains alert/oriented. Dressings remain clean, dry and intact. Goals per Patient Condition Fall Prevention Plan: Patient will remain free from falls. See the Daily cares/safety flowsheet forintervention documentation. DVT Prophylaxis in Use: Patient will remain free from DVT. See Daily cares/safety flowsheet for intervention documentation. Pain Management Plan: Patient is being monitored for pain and response to treatment. See Vital Signs Complex Assessment flowsheet and MAR for intervention documentation. Goals/Plan for shift Patient/Family stated goal for shift: pain control and moving the leg Nursing goal for shift: pain control, safety and comfort Plan: hourly rounding, medication management Goals/Plan for Hospital Stay Patient/Family stated goal for hospital stay: safety and comfort Nursing goal for hospital stay: safety and comfort Plan hr rounding and meds * Care Plan - Nneka Wilson RN - 07/01/2025 6:57 PM EDT End of Shift and Plan of Care Summary Patient alert and oriented x 4. Patient up with assist x1 with walker. Pain controlled with medication. Patient remained free of injury. All safety devices in place. Call light within reach. Bed in lowest position, wheels locked. VSS. Goals per Patient Condition Fall Prevention Plan: Patient will remain free from falls. See the Daily cares/safety flowsheet forintervention documentation. DVT Prophylaxis in Use: Patient will remain free from DVT. See Daily cares/safety flowsheet for intervention documentation. Pain Management Plan: Patient is being monitored for pain and response to treatment. See Vital Signs Complex Assessment flowsheet and MAR for intervention documentation. Goals/Plan for shift Patient/Family stated goal for shift: pain control and moving the leg Nursing goal for shift: pain control, safety and comfort Plan: hourly rounding, medication management Goals/Plan for Hospital Stay Patient/Family stated goal for hospital stay: safety and comfort Nursing goal for hospital stay: safety and comfort Plan hr rounding and meds * Care Plan - Devaughn Torres RN - 07/01/2025 5:37 AM EDT End of Shift and Plan of Care Summary Patient has not attempted to get out of bed without assist during shift. Safety maintained. Patienthas Lovenox ordered for DVT prophylaxis, no signs/symptoms of DVT observed. Patient has denied needfor pain medication during shift. Goals per Patient Condition Fall Prevention Plan: Patient will remain free from falls. See the Daily cares/safety flowsheet forintervention documentation. DVT Prophylaxis in Use: Patient will remain free from DVT. See Daily cares/safety flowsheet for intervention documentation. Pain Management Plan: Patient is being monitored for pain and response to treatment. See Vital Signs Complex Assessment flowsheet and MAR for intervention documentation. Goals/Plan for shift Patient/Family stated goal for shift: pain control and moving the leg Nursing goal for shift: pain control, safety and comfort Plan: hrly rounding, meds Goals/Plan for Hospital Stay Patient/Family stated goal for hospital stay: safety and comfort Nursing goal for hospital stay: safety and comfort Plan hr rounding and meds * Care Plan - Dimitri Vasquez RN - 06/30/2025 5:20 PM EDT End of Shift and Plan of Care Summary Patient AOx4. VSs Pain 1/10 this shift. Controlled with prn Tylenol. Completed therapy. Surgical dressing intact. Clean;dry. Safety precautions in place. Call light and bedside table within reach. Goals per Patient Condition Fall Prevention Plan: Patient will remain free from falls. See the Daily cares/safety flowsheet forintervention documentation. DVT Prophylaxis in Use: Patient will remain free from DVT. See Daily cares/safety flowsheet for intervention documentation. Pain Management Plan: Patient is being monitored for pain and response to treatment. See Vital Signs Complex Assessment flowsheet and MAR for intervention documentation. Goals/Plan for shift Patient/Family stated goal for shift: pain control and moving the leg Nursing goal for shift: pain control, safety and comfort Plan: hrly rounding, meds Goals/Plan for Hospital Stay Patient/Family stated goal for hospital stay: safety and comfort Nursing goal for hospital stay: safety and comfort Plan hr rounding and meds * Care Plan - Bridget Rowley RN - 06/30/2025 6:11 AM EDT End of Shift and Plan of Care Summary Patient a/o x4 and free of falls. Pain managed with prn percocet. Safety precautions in place. Rested through the night. Call light within reach, bed alarm on, bed locked and in the lowest position. CPAP worn at night. Goals per Patient Condition Fall Prevention Plan: Patient will remain free from falls. See the Daily cares/safety flowsheet forintervention documentation. DVT Prophylaxis in Use: Patient will remain free from DVT. See Daily cares/safety flowsheet for intervention documentation. Pain Management Plan: Patient is being monitored for pain and response to treatment. See Vital Signs Complex Assessment flowsheet and MAR for intervention documentation. Goals/Plan for shift Patient/Family stated goal for shift: pain control and moving the leg Nursing goal for shift: pain control, safety and comfort Plan: hrly rounding, meds Goals/Plan for Hospital Stay Patient/Family stated goal for hospital stay: safety and comfort Nursing goal for hospital stay: safety and comfort Plan hr rounding and meds * Care Plan - Dimitri Vasquez RN - 06/29/2025 6:55 PM EDT End of Shift and Plan of Care Summary Patient had hip surgery this shift. Returned from procedure. Awake, AOx4, VSS. Pain controlled. Safety precautions in place. Call light and bedside table within reach. Goals per Patient Condition Fall Prevention Plan: Patient will remain free from falls. See the Daily cares/safety flowsheet forintervention documentation. DVT Prophylaxis in Use: Patient will remain free from DVT. See Daily cares/safety flowsheet for intervention documentation. Pain Management Plan: Patient is being monitored for pain and response to treatment. See Vital Signs Complex Assessment flowsheet and MAR for intervention documentation. Goals/Plan for shift Patient/Family stated goal for shift: surgery, pain control. Nursing goal for shift: pain control, safety and comfort Plan: hrly rounding, meds Goals/Plan for Hospital Stay Patient/Family stated goal for hospital stay: safety and comfort Nursing goal for hospital stay: safety and comfort Plan hr rounding and meds * Care Plan - Harinder Knight RN - 06/29/2025 6:10 AM EDT End of Shift and Plan of Care Summary Shift assessment completed (see flowsheet). Medications due administered as ordered. Patient goals discussed. All Patient needs met at this time. Confirmed safe environment with purposeful hourly rounding. Bedside table and call button left within reach. Pt remained safe throughout the night, no signs of distress noted. Comfort care . Hourly rounding and medications provided. Goals per Patient Condition Fall Prevention Plan: Patient will remain free from falls. See the Daily cares/safety flowsheet forintervention documentation. DVT Prophylaxis in Use: Patient will remain free from DVT. See Daily cares/safety flowsheet for intervention documentation. Pain Management Plan: Patient is being monitored for pain and response to treatment. See Vital Signs Complex Assessment flowsheet and MAR for intervention documentation. Goals/Plan for shift Patient/Family stated goal for shift: safety and comfort Nursing goal for shift: safety and comfort Plan: hr rounding and meds Goals/Plan for Hospital Stay Patient/Family stated goal for hospital stay: safety and comfort Nursing goal for hospital stay: safety and comfort Plan hr rounding and meds [facility] NoteEncounter Department: [facility] MAIN Progress Notes by Devaughn Torres RN at 07/02/2025 12:57 AM Author: PEPITO Crespoervice: Nursing HandoffAuthor Type: Registered Nurse Filed: 07/02/2025 12:59 AMDate of Service: 07/02/2025 12:57 AMStatus: Signed Clerk Operator: Devaughn Torres RN (Registered Nurse) From 1946. Patient reports tolerable pain, VSS. Patient remains alert/oriented. Left hip dressings are appropriate. See flowsheets for additional documentation.[facility]10-16-[facility] NoteEncounter Department: [facility]IN Progress Notes by Nneka Wilson RN at 07/01/2025 7:09 PM Author: PEPITO Swartzervice: -Author Type: Registered Nurse Filed: 07/01/2025 7:10 PMDate of Service: 07/01/2025 7:09 PMStatus: Signed Clerk Operator: Nneka Wilson RN (Registered Nurse) 07/01/25 486 Wound/Ostomy Does patient have the following:Surgical incision 4 Eyes/4 Hours All pressure points have been assessedAssessment complete - no pressure injury found Pressure point review attestation (Enter Full Name)Lise Kenyon [facility] Plan of care note* Care Plan - Nneka Wilson RN - 07/01/2025 6:57 PM EDT End of Shift and Plan of Care Summary Patient alert and oriented x 4. Patient up with assist x1 with walker. Pain controlled with medication. Patient remained free of injury. All safety devices in place. Call light within reach. Bed in lowest position, wheels locked. VSS. Goals per Patient Condition Fall Prevention Plan: Patient will remain free from falls. See the Daily cares/safety flowsheet forintervention documentation. DVT Prophylaxis in Use: Patient will remain free from DVT. See Daily cares/safety flowsheet for intervention documentation. Pain Management Plan: Patient is being monitored for pain and response to treatment. See Vital Signs Complex Assessment flowsheet and MAR for intervention documentation. Goals/Plan for shift Patient/Family stated goal for shift: pain control and moving the leg Nursing goal for shift: pain control, safety and comfort Plan: hourly rounding, medication management Goals/Plan for Hospital Stay Patient/Family stated goal for hospital stay: safety and comfort Nursing goal for hospital stay: safety and comfort Plan hr rounding and meds [facility] NoteEncounter Department: [facility] MAIN Progress Notes by Aline Rogers PA-C at 07/01/2025 11:27 AM Author: Meagan Parikhrvice: -Author Type: Physician Supervisor Cartography Filed: 07/01/2025 11:29 AMDate of Service: 07/01/2025 11:27 AMStatus: Signed Clerk Operator: Aline Rogers PA-C (Physician Supervisor Cartography) Orthopedic progress note: Postop day : Cephalomedullary Nail, Left Hip Patient seen at bedside reports pain is well-controlled. He has been up with therapy today and reports it went well except that he was hypotensive. He was able to walk the length of the hallway with minimal assist. He may continue to be weightbearing as tolerated to the left lower extremity. Continue with anticoagulation, therapies as tolerated, discharge planning and pain control. He is orthopedically stable for discharge. Follow-up outpatient for postop 10 days. [facility]10-16-2025 NoteEncounter Department: [facility] MAIN Progress Notes by Naun Nguyen PTA at 07/01/2025 9:55 AM Author: Naun Nguyen PTAService: PT TreatmentAuthor Type: Diamond Sander Filed: 07/01/2025 9:56 AMDate of Service: 07/01/2025 9:55 AMStatus: Signed Clerk Operator: Naun Nguyen PTA (Diamond Sander)Cosigner: Christianne Dennis, PT, DPT at 07/02/2025 8:27 AM Physical Therapy Treatment Admit date: 06/28/2025 Today's Date: 07/01/2025 Patient Name/MR#: Joo Allen [id number] Current Room: [address] Admitting Diagnosis: Closed left hip fracture, initial encounter ([facility]) [S72.002A] Fall from standing, initial encounter [W19.XXXA] Intertrochanteric fracture, closed, left, initial encounter ([facility]) [S72.142A] Admitting Provider: Philip Farias MD PT Discharge Recommendations 1. Physical Therapy services recommended to continue after discharge: Yes 2. Supervision for safety required: Caregiver will need to provide multimedia teacher supervision: Unobserved for brief periods of time only but not left alone 3. Physical Assistance required for daily care: Caregiver will need to provide minimum physical assistance: Caregiver will need to supply 1-25% of physical assistance 4. PT Discharge Equipment Needs if Returning Home: Front Wheeled Walker DME Justification for Recommended Equipment -Walker -Standard Patient has a mobility limitation that significantly impairs their ability to participate in one or more MRADLS such as toileting, feeding, dressing, grooming, and bathing in the home and in a reasonable timeframe. This limitation is resolved with the use of the walker The patient is able to safely use the walker Functional Outcomes/Testing and Reporting Basic Mobility: AM-PAC 6 Clicks:18 General - Subjective: We will take the back ways home - Current Medical Status: Pt is an 84 year old male who presents to the ED after a fall, landing on L hp. Imagine showed fracture of L femur, underwent nailing of L hip on 06/[address] Ramsey - Testing/Imaging: CT HEAD W/O CONTRAS IMPRESSION: 1. Minimal small-vessel ischemic changes 2. No acute hemorrhage. CT C-SPINE IMPRESSION: 1. No CT evidence of acute traumatic injury in the cervical spine. 2. Multilevel degenerative spondylosis of the cervical spine as noted above. XRAY L EBOW: (-) XRAY L HIP (06/28): IMPRESSION: 1. Comminuted and displaced intertrochanteric fracture of the left femur with mild varus angulation. XRAY L HIP (06/29) IMPRESSION: Intraoperative fluoroscopy for guidance and documentation and performing ORIF of a comminuted intertrochanteric fracture of the left femur. Home Environment Source: Patient Lives with: Spouse Type of Home: House Home Layout: One level, Laundry in basement (does not need to access) Home Access: Stairs to enter with rails Ascending Entrance Stairs- Rails: Right Entrance Stairs- Number of Steps: 2 Patient's Work/Caregiver Role: Retired (from ) Home Equipment Home Adaptive Equipment: Rollator Bed Type: Flat bed Shower/Tub: Walk-in shower Toilet: Comfort height Bathroom Equipment: Grab bars in shower Prior Functional Level Functional Transfers: Independent Functional Mobility: Independent Driving/Transportation: Drives Premorbid Communication: Wears glasses/contacts (readers) Premorbid Cognition: No known deficits Weightbearing Status LLE Weight Bearing: WBAT Therapy Precautions Fall Risk Additional Comments:Yellow Fall Risk Orthotics/Braces Orthotics, Braces: Not applicable Session Beginning Location, Safety Info Upon Arrival Patient Location: In bed Upon Arrival Safety: Bed alarm on, Vitals stable, Family/caregiver present Pertinent Information Since Last Session: No acute changes since last session Pain Assessment Pain Score: 10/26 Pain Location: L hip Pain Intervention: Repositioned, Ambulation, Activity modified, Patient reports pain level tolerable for therapy, Emotional support, Extremity elevated Oxygen Administration Details Oxygen Delivery Device: RA Pertinent Medication/Information Pt progressed very well through therapy activities. Post amb to gym and stair training pt had symptoms of syncope becoming very dizzy and lightheaded with c/o tunnel vision and becoming min responsive. pt LE were elevated and O2 and BPs were taken, pt was given yi crackers and water and pt felt better in 10 min. Pt had not eaten breakfast or had anything to drink today. TaskCurrent Assist LevelDevices, Other Details Bed Mobility Rolling Right Left Supine to SitMinimal assist Sit to SupineMinimal assist Sit to/from StandStandby supervision FWW Transfer Bed to Chair Gait TrainingStandby supervision FWW Distance: 90' Stair TrainingMinimal assist (CGA) FWW, SPC, R rail ascending Rolling - Right, Left GOAL: Will roll right/left with: Modified independence Treament This Date: Roll Right/Left Status: Not Addres (more content not included)...[facility]10-16-2025 NoteEncounter Department: [facility] 4 MAIN Progress Notes by AKHIL Azevedo OTR/Nita at 07/01/2025 9:50 AM Author: AKHIL Azevedo OTR/LService: OT TreatmentAuthor Type: Occupational Therapist Filed: 07/01/2025 9:51 AMDate of Service: 07/01/2025 9:50 AMStatus: Signed Clerk Operator: AKHIL Azevedo OTR/Nita (Occupational Therapist) Occupational Therapy Treatment Admit date: 06/28/2025 Today's Date: 07/01/2025 Patient Name/MR#: Joo Allen [id number] [address] Ad[address] Diagnosis: Closed left hip fracture, initial encounter ([facility]) [S72.002A] Fall from standing, initial encounter [W19.XXXA] Intertrochanteric fracture, closed, left, initial encounter ([facility]) [S72.142A] Admitting Provider: Philip Farias MD Past Medical/Surgical History: has a past medical history of Hypertension. has no past surgical history on file. OT Discharge Recommendations 1. Occupational Therapy services recommended to continue after discharge: Yes 2. Supervision for safety required: multimedia manager supervision required: Unobserved for brief periods of time only but not left alone 3. Physical assistance required for daily care: Minimum Physical Assistance required: Caregiver supplies 1-25% of physical assistance 4. 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 I would let out into my garden during the day and bring it in at night . - Current Medical Status: Pt is an 84 year old male who presents to the ED after a fall, landing on L hp. Imagine showed fracture of L femur, underwent nailing of L hip on 06/[address] Ramsey - Testing/Imaging: CT HEAD W/O CONTRAS IMPRESSION: 1. Minimal small-vessel ischemic changes 2. No acute hemorrhage. CT C-SPINE IMPRESSION: 1. No CT evidence of acute traumatic injury in the cervical spine. 2. Multilevel degenerative spondylosis of the cervical spine as noted above. XRAY L EBOW: (-) XRAY L HIP (06/28): IMPRESSION: 1. Comminuted and displaced intertrochanteric fracture of the left femur with mild varus angulation. XRAY L HIP (06/29) IMPRESSION: Intraoperative fluoroscopy for guidance and documentation and performing ORIF of a comminuted intertrochanteric fracture of the left femur. Home Environment Source: Patient Lives with: Spouse Type of Home: House Home Layout: One level, Laundry in basement (does not need to access) Home Access: Stairs to enter with rails Ascending Entrance Stairs- Rails: Right Entrance Stairs- Number of Steps: 2 Patient's Work/Caregiver Role: Retired (from ) Home Equipment Home Adaptive Equipment: Rollator Bed Type: Flat bed Shower/Tub: Walk-in shower Toilet: Comfort height Bathroom Equipment: Grab bars in shower Prior Functional Level ADLs: Independent IADLs/Health Management: Independent Driving/Transportation: Drives Functional Transfers: Independent Functional Mobility: Independent (Pt ambulates IND at baseline, no other falls within the last 3 months.) Rest/Sleep: Denies difficulty/normal sleep pattern Premorbid Communication: Wears glasses/contacts (Reading glasses) Premorbid Cognition: No known deficits Weightbearing Status LLE Weight Bearing: WBAT Therapy Precautions Fall Risk Additional Comments:Yellow Fall Risk Orthotics/Braces Session Beginning Location, Safety Info Upon Arrival Patient Location: In bed Upon Arrival Safety: Bed alarm on, Vitals stable, Family/caregiver present Pertinent Information Since Last Session: No acute changes since last session Pain Assessment Pain Score: 6/10 Pain Location: L hip and knee Pain Intervention: RN notified, Repositioned, Increased activity, Ambulation, Activity modified, Patient reports pain tolerable level for therapy Oxygen Administration Details Oxygen Delivery Device: RA Pertinent Medication/Information Pt denied SOB throughout session. After practicing stair transfer, pt reporting onset of dizziness symptom, sitting in chair to rest. Once sitting, pt beginning to display signs of possible presyncopal epsiode. Pt's eyes becoming dilated, onset of full body tremors, change in color of skin, and inattention (not responding to questions). All symptoms lasting for approximately 15-30 seconds. Therapy began to elevate BLE. BP taken at this time, BP - 90/32 (45). Pt began responding, able to report blurry vision. Pt provided with food and water. After 3 minute rest break with BLE elevated, BP 112/56 (65). After an additional 10-15 minute rest break with oral intake, BP 132/61 (79), HR 80 bpm. Pt returned to bed at the end of the session, RN and orthopedic surgeon notified of event. Activity Tolerance Functional Activity Tolerance: Tolerate 30 min activity with mult (more content not included)...[facility]10-16-2025 NoteEncounter Department: [facility] 4 MAIN Progress Notes by Baljinder Carrillo MD at 07/01/2025 9:31 AM Author: SHAE Moultonervice: HospitalistAuthor Type: Physician Filed: 07/01/2025 12:18 PMDate of Service: 07/01/2025 9:31 AMStatus: Signed Clerk Operator: Baljinder Carrillo MD (Physician) [facility] Progress Note Subjective: Interval History: Status postORIF of left peritrochanteric femur fracture with long cephalomedullary nail on 06/29/2025 Patient seen at bedside pain is tolerable BP dropped with therapy today and pt felt dizzy while working with therapy Hb 8.0 Continuous Infusions: -0.9 % sodium chloride irrigationStopped (06/30/25 1540) Objective: Vital signs in last 24 hours: Temp: [98.1 ?F (36.7 ?C)-98.2 ?F (36.8 ?C)] 98.2 ?F (36.8 ?C) Pulse: [77-96] 77 Resp: [16-18] 18 BP: (118-149)/(53-65) 149/53 Intake/Output last 3 shifts: I/O last 3 completed shifts: In: 2983 [P.O.:360; I.V.:2322.9; IV Piggyback:300.1] Out: 1575 [Urine:1575] Intake/Output this shift: No intake/output data recorded. Last BMP Result: Recent Labs Lab07/01/25 0419 NA131* K4.5 CL102 CO224 BUN19 CREATININE1.25 GLU95 CALCIUM8.0* Last CBC Result: Recent Labs Lab07/01/25 0419 WBC7.4 HEMOGLOBIN8.0* HCT23.1* VTW936 RBC2.37* No results for input(s): PROTIME , INR in the last 72 hours. Current meds Scheduled Meds: -amLODIPine 5 mgOralDAILY -aspirin 81 mgOralDAILY -atorvastatin 40 mgOralDAILY -enoxaparin (LOVENOX) injection (30 or 40 mg DVT Prophylaxis) 40 mgSubcutaneousDAILY AT 0800 -lisinopriL 40 mgOralDAILY -magnesium oxide 200 mgOralDAILY -pantoprazole 40 mgIntravenousDaily at 0600 -ROPivacaine (PF) Continuous Infusions: -0.9 % sodium chloride irrigationStopped (06/30/25 1540) PRN Meds:.0.9 % sodium chloride irrigation, acetaminophen, docusate, HYDROmorphone, melatonin, ondansetron OR ondansetron, oxyCODONE-acetaminophen, oxyCODONE- acetaminophen, ROPivacaine (PF) Physical Exam: Vitals: 06/30/25 [id number]/ [id number] BP:137/65(!) 127/54(!) 149/53 Pulse:8877 Resp:[id number] Temp:98.1 ?F (36.7 ?C)98.2 ?F (36.8 ?C) SpO2:99%100% Weight: Height: General appearance : Comfortable male L:CTA, no W/R/R, not labored H:RRR, S1S2 Abd:Soft ND/NT, normal BS Ext: Left hip surgical site clean and dry covered with Aquacel Orders Placed This Encounter Procedures -Diet-Regular Assessment: Principal Problem: Closed left hip fracture, initial encounter ([facility]) Plan: Left hip fracture secondary to mechanical fall Status postORIF of left peritrochanteric femur fracture with long cephalomedullary nail on 06/29/2025 Ortho input appreciated Hyponatremia sodium level 129 was on IV fluids, will hold fluids Hypertension Obstructive sleep apnea wears CPAP at night HTN continue Norvasc continue lisinopril will decrease Norvasc and lisinopril dose and parameters written Both held this morning due to borderline BP's Hyperlipidemia continue statin CODE STATUS full DVT prophylaxis Lovenox Discussed with multiple family members at bedside Possible discharge home tomorrow if the blood pressure is better Baljinder Carrillo MD 07/01/2025 This chart entry has been completed using [employer] Dict[employer]. While attempts have been made to ensure accuracy, certain words and phrases may not be entered as intended.[facility]10-16-2025 Plan of care note* Care Plan - Devaughn Torres RN - 07/01/2025 5:37 AM EDT End of Shift and Plan of Care Summary Patient has not attempted to get out of bed without assist during shift. Safety maintained. Patienthas Lovenox ordered for DVT prophylaxis, no signs/symptoms of DVT observed. Patient has denied needfor pain medication during shift. Goals per Patient Condition Fall Prevention Plan: Patient will remain free from falls. See the Daily cares/safety flowsheet forintervention documentation. DVT Prophylaxis in Use: Patient will remain free from DVT. See Daily cares/safety flowsheet for intervention documentation. Pain Management Plan: Patient is being monitored for pain and response to treatment. See Vital Signs Complex Assessment flowsheet and [facility] for intervention documentation. Goals/Plan for shift Patient/Family stated goal for shift: pain control and moving the leg Nursing goal for shift: pain control, safety and comfort Plan: hrly rounding, meds Goals/Plan for Hospital Stay Patient/Family stated goal for hospital stay: safety and comfort Nursing goal for hospital stay: safety and comfort Plan hr rounding and meds [facility]10-16-2025 NoteEncounter Department: [facility] 4 MAIN Progress Notes by Devaughn Torres RN at 07/01/2025 12:56 AM Author: PEPITO Crespoervice: Nursing HandoffAuthor Type: Registered Nurse Filed: 07/01/2025 12:58 AMDate of Service: 07/01/2025 12:56 AMStatus: Signed Clerk Operator: Devaughn Torres RN (Registered Nurse) From 1950. Patient denies complaints. VSS. Patient is alert/oriented. Left leg dressings remain clean, dry and intact. Family is at bedside. Documentation per flowsheets.[facility]10-15-2025 Plan of care note* Care Plan - Dimitri Vasquez RN - 06/30/2025 5:20 PM EDT End of Shift and Plan of Care Summary Patient AOx4. VSs Pain 09/25 this shift. Controlled with prn Tylenol. Completed therapy. Surgical dressing intact. Clean;dry. Safety precautions in place. Call light and bedside table within reach. Goals per Patient Condition Fall Prevention Plan: Patient will remain free from falls. See the Daily cares/safety flowsheet forintervention documentation. DVT Prophylaxis in Use: Patient will remain free from DVT. See Daily cares/safety flowsheet for intervention documentation. Pain Management Plan: Patient is being monitored for pain and response to treatment. See Vital Signs Complex Assessment flowsheet and MAR for intervention documentation. Goals/Plan for shift Patient/Family stated goal for shift: pain control and moving the leg Nursing goal for shift: pain control, safety and comfort Plan: hrly rounding, meds Goals/Plan for Hospital Stay Patient/Family stated goal for hospital stay: safety and comfort Nursing goal for hospital stay: safety and comfort Plan hr rounding and meds [facility]10-15-2025 NoteEncounter Department: [facility] MAIN Progress Notes by Aline Rogers PA-C at 06/30/2025 12:37 PM Author: Meagan Parikhrvice: -Author Type: Physician Supervisor Cartography Filed: 06/30/2025 12:39 PMDate of Service: 06/30/2025 12:37 PMStatus: Signed Clerk Operator: Aline Rogers PA-C (Physician Supervisor Cartography) Orthopedic progress note: Postop day : Cephalomedullary Nail, Left Hip Patient seen at bedside reports pain is well-controlled. He has not yet been up with therapy today. He may continue to be weightbearing as tolerated to the left lower extremity. Continue with anticoagulation, therapies as tolerated, discharge planning and pain control. We will reassess his ability to be discharged after therapy is completed.[facility]10-15-2025 NoteEncounter Department: [facility] 4 MAIN Progress Notes by Baljinder Carrillo MD at 06/30/2025 9:44 AM Author: SHAE Moultonervice: HospitalistAuthor Type: Physician Filed: 06/30/2025 1:10 PMDate of Service: 06/30/2025 9:44 AMStatus: Signed Clerk Operator: Baljinder Carrillo MD (Physician) [facility] Progress Note Subjective: Interval History: Status postORIF of left peritrochanteric femur fracture with long cephalomedullary nail on 06/29/2025 Patient seen at bedside pain is tolerable Continuous Infusions: -0.9 % sodium mfozslel35 mL/hr (06/30/25 0557) -0.9 % sodium chloride irrigation -lactated ringer'sStopped (06/29/25 7132) Objective: Vital signs in last 24 hours: Temp: [97.1 ?F (36.2 ?C)-98.4 ?F (36.9 ?C)] 98.4 ?F (36.9 ?C) Pulse: [66-87] 78 Resp: [12-28] 17 BP: (108-152)/(51-72) 139/68 Intake/Output last 3 shifts: I/O last 3 completed shifts: In: 3124.3 [I.V.:2796.5; IV Piggyback:327.8] Out: 550 [Urine:350; Blood:200] Intake/Output this shift: No intake/output data recorded. Last BMP Result: Recent Labs Lab06/29/25 0432 NA129* K4.6 CL100 CO224 BUN16 CREATININE1.48* GLU99 CALCIUM8.0* Last CBC Result: Recent Labs Lab06/29/25 0432 WBC9.7 LRTANIYNZN62.7* HCT31.2* CZC073 RBC3.20* No results for input(s): PROTIME , INR in the last 72 hours. Current meds Scheduled Meds: -amLODIPine 5 mgOralDAILY -aspirin 81 mgOralDAILY -atorvastatin 40 mgOralDAILY -ceFAZolin (ANCEF) standard IM/IVPB 2,000 mgIntravenous3 times per day -enoxaparin (LOVENOX) injection (30 or 40 mg DVT Prophylaxis) 40 mgSubcutaneousDAILY AT 0800 -lisinopriL 40 mgOralDAILY -magnesium oxide 200 mgOralDAILY -pantoprazole 40 mgIntravenousDaily at 0600 -ROPivacaine (PF) Continuous Infusions: -0.9 % sodium zujcanpj91 mL/hr (06/30/25 0540) -0.9 % sodium chloride irrigation -lactated ringer'sStopped (06/29/25 1604) PRN Meds:.0.9 % sodium chloride irrigation, acetaminophen, docusate, HYDROmorphone, ketorolac, melatonin, ondansetron OR ondansetron, oxyCODONE-acetaminophen, oxyCODONE-acetaminophen, ROPivacaine (PF) Physical Exam: Vitals: 06/30/25 128884 [id number]/30/25 [id number]/30/25 1045 BP:139/68 Pulse: Resp:[id number] Temp: SpO2: Weight: Height: General appearance : Comfortable male L:CTA, no W/R/R, not labored H:RRR, S1S2 Abd:Soft ND/NT, normal BS Ext: Left hip surgical site clean and dry covered with Aquacel Orders Placed This Encounter Procedures -Diet-NPO After Midnight Nothing By Mouth-NPO Assessment: Principal Problem: Closed left hip fracture, initial encounter ([facility]) Plan: Left hip fracture secondary to mechanical fall Status postORIF of left peritrochanteric femur fracture with long cephalomedullary nail on 06/29/2025 Ortho input appreciated Hyponatremia sodium level 129 was on IV fluids, will hold fluids Hypertension Obstructive sleep apnea wears CPAP at night HTN continue Norvasc continue lisinopril Hyperlipidemia continue statin CODE STATUS full DVT prophylaxis Lovenox Discussed with multiple family members at bedside Follow CBC and BMP tomorrow Baljinder Sera Carrillo MD 06/30/2025 This chart entry has been completed using [employer]. While attempts have been made to ensure accuracy, certain words and phrases may not be entered as intended.[facility]10-15-2025 Plan of care note* Care Plan - Bridget Rowley RN - 06/30/2025 6:11 AM EDT End of Shift and Plan of Care Summary Patient a/o x4 and free of falls. Pain managed with prn percocet. Safety precautions in place. Rested through the night. Call light within reach, bed alarm on, bed locked and in the lowest position. CPAP worn at night. Goals per Patient Condition Fall Prevention Plan: Patient will remain free from falls. See the Daily cares/safety flowsheet forintervention documentation. DVT Prophylaxis in Use: Patient will remain free from DVT. See Daily cares/safety flowsheet for intervention documentation. Pain Management Plan: Patient is being monitored for pain and response to treatment. See Vital Signs Complex Assessment flowsheet and MAR for intervention documentation. Goals/Plan for shift Patient/Family stated goal for shift: pain control and moving the leg Nursing goal for shift: pain control, safety and comfort Plan: hrly rounding, meds Goals/Plan for Hospital Stay Patient/Family stated goal for hospital stay: safety and comfort Nursing goal for hospital stay: safety and comfort Plan hr rounding and meds [facility]10-14-2025 Plan of care note* Care Plan - Dimitri Vasquez RN - 06/29/2025 6:55 PM EDT End of Shift and Plan of Care Summary Patient had hip surgery this shift. Returned from procedure. Awake, AOx4, VSS. Pain controlled. Safety precautions in place. Call light and bedside table within reach. Goals per Patient Condition Fall Prevention Plan: Patient will remain free from falls. See the Daily cares/safety flowsheet forintervention documentation. DVT Prophylaxis in Use: Patient will remain free from DVT. See Daily cares/safety flowsheet for intervention documentation. Pain Management Plan: Patient is being monitored for pain and response to treatment. See Vital Signs Complex Assessment flowsheet and MAR for intervention documentation. Goals/Plan for shift Patient/Family stated goal for shift: surgery, pain control. Nursing goal for shift: pain control, safety and comfort Plan: hrly rounding, meds Goals/Plan for Hospital Stay Patient/Family stated goal for hospital stay: safety and comfort Nursing goal for hospital stay: safety and comfort Plan hr rounding and meds [facility]10-14-2025 NoteEncounter Department: [facility] OR[facility] 4 MAIN Progress Notes by Dimitri Vasquez RN at 06/29/2025 5:28 PM Author: PEPITO Dobsonervice: Nursing HandoffAuthor Type: Registered Nurse Filed: 06/29/2025 5:29 PMDate of Service: 06/29/2025 5:28 PMStatus: Signed Clerk Operator: Dimitri Vasquez RN (Registered Nurse) Patient returned from surgery. AOx4. VSS. Tylenol given. Drinking fluids. Surgical dressing. Clean, dry, intact.[facility]10-14-2025 Procedure note* Op Note - So Ramsey DO - 06/29/2025 4:25 PM EDT ORTHOPEDIC OPERATIVE NOTE Name: Joo Allen : 1940 CSN: [id number] Surgeon: So Ramsey DO, DO Facility: [facility] Date of Surgery: 06/28/2025 SURGEON: So Ramsey DO PREOP DX: Comminuted left peritrochanteric femur fracture POSTOP DX: Same PROCEDURES: ORIF of left peritrochanteric femur fracture with long cephalomedullary nail DOOR TO DOOR SALES REPRESENTATIVE: None COMPLICATIONS: None ANESTHESIA: General EBL: 200 IMPLANTS USED: Jim/[employer] natural nail 380 mm x 10 mm x 130 degrees 110 mm x 10.5mm lag screw 55 mm x 5.5 mm distal interlocking screw CONDITION: Satisfactory to PACU. INDICATION FOR PROCEDURE: This patient is a 84 y.o.-year-old male who presents after sustaining a mechanical fall onto his left hip. Patient was out to dinner with his when she fell. The patientattempted to catch his and she fell on top of him directly onto his left hip. He felt immediate pain was unable to bear weight. He was brought to [facility] where x-rays of the l eft hip were obtained which demonstrated a comminuted peritrochanteric left hip fracture. Orthopedic surgery was consulted for further evaluation and treatment. Wrist benefits and alternatives to operative treatment were discussed at length with the patient and ultimate decision was made to proceedwith cephalomedullary nail of the left hip. PROCEDURE IN DETAIL: Patient was seen in the preoperative holding area. The operative extremity wasmarked. Informed consent was obtained. Patient was then taken back to the operative suite. General anesthesia was induced by the anesthesia department on the hospital bed. Patient was then placed in traction boots and transferred over to the [place] traction table and placed in the supine position. The left arm was placed over the chest on a stack of blankets and taped into position. Fracture reduction was performed with a combination of inline traction, internal rotation and adduction. Prior to prepping and draping, preoperative x-rays were obtained confirming fracture reduction. There was noted to still be a large segment of the lateral/anterior cortex that was in varus, however the medial calcar was noted to be well reduced. Patient was then prepped and draped in normal sterile fashion. Prior to initiation of the procedure, a preincision timeout was performed confirming patient's identity, planned procedure and correct surgical site. Patient had received 2 g of IV Ancef as well as IV TXA. A stab incision was then made over the apex of the lateral fragment. Dissection was taken down through skin subcutaneous tissue and the IT band. A blunt tamp was then placed on the lateral aspect of the fracture and pushed medial. This resulted in improvement of the fracture reduction. A stab incision was then made proximal to the tip of the greater trochanter. Threaded guidewire was then inserted on the greater trochanter. Positioning of the guidewire was then fine- tuned alternating between 2 guidewires using the offset guide. Once we were happy with the positioning of the guidewire just medial to the tip of the greater trochanter and centered in the tip of the greater trochanter and femoral neck on the lateral image, the guidewire was then advanced and seated to the appropriate depth. The opening reamer was then inserted over the tip of the guidewire and reamed to the appropriate depth. Fracture reduction was maintained throughout reaming and special attention was paid to ensure that the trajectory of the opening reamer was in line with the medullary canal on the AP and lateral image. The opening reamer and guidewire were then removed and a ball-tipped guidewire was then placed into the opening reamed hole. Sequential reaming was then performed starting with size 9 mm up to a 11.5 mm. Depth of the guidewire was then measured and found to be 380 mm. A 380 x 10 mm x 130 degreeZimmer natural nail was then inserted over the ball-tipped guidewire and seated to the appropriate depth. Ball-tipped guidewire was then removed. A additional stab incision was made on the lateral aspect of the thigh to accommodate the guidewire and trocar for the lag screw. The trocar was insertedthrough the stab incision and aiming arm jig and seated on the lateral aspect of the femur. Guidewire was then advanced in a low center position on the AP and posterior central position on the lateral. Depth of the guidewire was then measured and found to be 110 mm. The anterior lateral fragment was noted to not be captured by the guidewire due to anterior nature of the fracture line. An additional K wire was then placed in order to attempt to control that segment while reaming occurred. The guidewire for the lag screw was then overreamed to a depth of 110 mm. A 110 mm lag screw was then inserted over the guidewire and seated to the appropriate depth. AP and lateral fluoroscopic images wereobtained with excellent reduction of the medial calcar on the AP view, however there was noted to be flexion of the anterior lateral segment lateral view. At this point it was felt that the biologic cost to the fracture would be too great to attempt to improve the reduction of the lateral cortex and that the medial calcar was well lined up to allow for stability and healing of the fracture. The proximal setscrew was then engaged and locked statically. Attention was then turned to the distal interlocking screw where a lateral to medial distal interlocking bolt was placed in the distalmost holeusing perfect match-e-be-nash-she-wish band technique. This hole was drilled and measured and found to be 55 mm in length.A 55 mm x 5.5 mm distal interlocking bolt was then placed from lateral to medial. Final AP and lateral fluoroscopic images were obtained again confirming fracture reduction and proper placement of the hardware. The wounds were then thoroughly irrigated with normal saline. Prior to initiation of closure, all counts were correct. The deep dermal layer was then reapproximated using 2-0 Vicryl in buried interrupted fashion. The skin was then closed with martín. The wounds were then dressed with Aquacel Ag island dressings. Patient was then transferred over the hospital bed, awoken from anesthesia and taken to PACU in stable condition. All counts were correct x 2 and no complications were encountered throughout the procedure. Postoperative plan: Patient will be weightbearing as tolerated on the left lower extremity. He will get 24 hours of postoperative antibiotics in the form of Ancef. He will start on DVT prophylaxis on postop day 0 in theform of Lovenox. He will transition to oral DVT prophylaxis had a minimum of aspirin 81 mg twice daily for 6 weeks. Patient is from [facility] and will follow-up with a orthopedic surgery associated with [facility] or [facility] in 2 weeks. If they remain in the [place] area for rehab, I will be happy to see them back in clinic in 2 weeks for a wound check. Electronically signed So Ramsey DO 06/29/2025 [facility]10-14-2025 Surgical operation note* Op Note - So Ramsey DO - 06/29/2025 4:25 PM EDT ORTHOPEDIC OPERATIVE NOTE Name: Joo Allen : 1940 CSN: [id number] Surgeon: So Ramsey DO, DO Facility: [facility] Date of Surgery: 06/28/2025 SURGEON: So Ramsey DO PREOP DX: Comminuted left peritrochanteric femur fracture POSTOP DX: Same PROCEDURES: ORIF of left peritrochanteric femur fracture with long cephalomedullary nail DOOR TO DOOR SALES REPRESENTATIVE: None COMPLICATIONS: None ANESTHESIA: General EBL: 200 IMPLANTS USED: Jim/Biomet natural nail 380 mm x 10 mm x 130 degrees 110 mm x 10.5mm lag screw 55 mm x 5.5 mm distal interlocking screw CONDITION: Satisfactory to PACU. INDICATION FOR PROCEDURE: This patient is a 84 y.o.-year-old male who presents after sustaining a mechanical fall onto his left hip. Patient was out to dinner with his when she fell. The patientattempted to catch his and she fell on top of him directly onto his left hip. He felt immediate pain was unable to bear weight. He was brought to [facility] where x-rays of the l eft hip were obtained which demonstrated a comminuted peritrochanteric left hip fracture. Orthopedic surgery was consulted for further evaluation and treatment. Wrist benefits and alternatives to operative treatment were discussed at length with the patient and ultimate decision was made to proceedwith cephalomedullary nail of the left hip. PROCEDURE IN DETAIL: Patient was seen in the preoperative holding area. The operative extremity wasmarked. Informed consent was obtained. Patient was then taken back to the operative suite. General anesthesia was induced by the anesthesia department on the hospital bed. Patient was then placed in traction boots and transferred over to the [place] traction table and placed in the supine position. The left arm was placed over the chest on a stack of blankets and taped into position. Fracture reduction was performed with a combination of inline traction, internal rotation and adduction. Prior to prepping and draping, preoperative x-rays were obtained confirming fracture reduction. There was noted to still be a large segment of the lateral/anterior cortex that was in varus, however the medial calcar was noted to be well reduced. Patient was then prepped and draped in normal sterile fashion. Prior to initiation of the procedure, a preincision timeout was performed confirming patient's identity, planned procedure and correct surgical site. Patient had received 2 g of IV Ancef as well as IV TXA. A stab incision was then made over the apex of the lateral fragment. Dissection was taken down through skin subcutaneous tissue and the IT band. A blunt tamp was then placed on the lateral aspect of the fracture and pushed medial. This resulted in improvement of the fracture reduction. A stab incision was then made proximal to the tip of the greater trochanter. Threaded guidewire was then inserted on the greater trochanter. Positioning of the guidewire was then fine- tuned alternating between 2 guidewires using the offset guide. Once we were happy with the positioning of the guidewire just medial to the tip of the greater trochanter and centered in the tip of the greater trochanter and femoral neck on the lateral image, the guidewire was then advanced and seated to the appropriate depth. The opening reamer was then inserted over the tip of the guidewire and reamed to the appropriate depth. Fracture reduction was maintained throughout reaming and special attention was paid to ensure that the trajectory of the opening reamer was in line with the medullary canal on the AP and lateral image. The opening reamer and guidewire were then removed and a ball-tipped guidewire was then placed into the opening reamed hole. Sequential reaming was then performed starting with size 9 mm up to a 11.5 mm. Depth of the guidewire was then measured and found to be 380 mm. A 380 x 10 mm x 130 degreeZimmer natural nail was then inserted over the ball-tipped guidewire and seated to the appropriate depth. Ball-tipped guidewire was then removed. A additional stab incision was made on the lateral aspect of the thigh to accommodate the guidewire and trocar for the lag screw. The trocar was insertedthrough the stab incision and aiming arm jig and seated on the lateral aspect of the femur. Guidewire was then advanced in a low center position on the AP and posterior central position on the lateral. Depth of the guidewire was then measured and found to be 110 mm. The anterior lateral fragment was noted to not be captured by the guidewire due to anterior nature of the fracture line. An additional K wire was then placed in order to attempt to control that segment while reaming occurred. The guidewire for the lag screw was then overreamed to a depth of 110 mm. A 110 mm lag screw was then inserted over the guidewire and seated to the appropriate depth. AP and lateral fluoroscopic images wereobtained with excellent reduction of the medial calcar on the AP view, however there was noted to be flexion of the anterior lateral segment lateral view. At this point it was felt that the biologic cost to the fracture would be too great to attempt to improve the reduction of the lateral cortex and that the medial calcar was well lined up to allow for stability and healing of the fracture. The proximal setscrew was then engaged and locked statically. Attention was then turned to the distal interlocking screw where a lateral to medial distal interlocking bolt was placed in the distalmost holeusing perfect match-e-be-nash-she-wish band technique. This hole was drilled and measured and found to be 55 mm in length.A 55 mm x 5.5 mm distal interlocking bolt was then placed from lateral to medial. Final AP and lateral fluoroscopic images were obtained again confirming fracture reduction and proper placement of the hardware. The wounds were then thoroughly irrigated with normal saline. Prior to initiation of closure, all counts were correct. The deep dermal layer was then reapproximated using 2-0 Vicryl in buried interrupted fashion. The skin was then closed with martín. The wounds were then dressed with Aquacel Ag island dressings. Patient was then transferred over the hospital bed, awoken from anesthesia and taken to PACU in stable condition. All counts were correct x 2 and no complications were encountered throughout the procedure. Postoperative plan: Patient will be weightbearing as tolerated on the left lower extremity. He will get 24 hours of postoperative antibiotics in the form of Ancef. He will start on DVT prophylaxis on postop day 0 in theform of Lovenox. He will transition to oral DVT prophylaxis had a minimum of aspirin 81 mg twice daily for 6 weeks. Patient is from [facility] and will follow-up with a orthopedic surgery associated with [facility] or [facility] in 2 weeks. If they remain in the [facility] for rehab, I will be happy to see them back in clinic in 2 weeks for a wound check. Electronically signed So Ramsey DO 06/29/2025 documented in this [facility]10-14-2025 Attending History and physical note* So Ramsey DO - 06/29/2025 1:20 PM EDT Joo Allen Date/Time of Admission: 06/28/2025 6:41 PM CSN: [id number]; Attending Provider: Baljinder Carrillo MD Room/Bed: [facility]/[id number] : 1940 Age: 84 y.o. H&P Interval Note Procedure(s) to be performed as identified below. Indication(s) for procedure as identified below. I have reviewed the History and Physical and/or relevant Consult on this patient. The patient was examined, and I concur with the findings of the History and Physical performed on the date of as identified below. The following changes are present: None. The risks, benefits, and alternative treatments discussed with the patient and/or family. Risk of exposure to and contraction of Covid-19 while patient is in the hospital was reviewed with the patient. Also, risk of Covid-19 infection slowing recovery from the procedure was reviewed. Patient understood and wishes to proceed. Electronically signed by: So Ramsey DO 06/29/2025 . Source Note - Luis Nayak RECOVERY AGENT-HEALTH POLICY NURSE - 06/28/2025 8:39 PM EDT [facility] History and Physical Chief Complaint: Fall HPI:Joo Allen is an 84 y.o. male, past medical history of hypertension, obstructive sleep apneaon CPAP, presents after mechanical fall. Patient stated he was at [facility], spouse and him were leaving spouse tripped and fell backwards he went to prevent her from falling ended up falling himself and spouse falling on top of him, imaging shows left hip fracture. ED provider discussed case with on-call orthopedic surgery, will evaluate in AM. Patient endorses drinking every day, denies any alcohol withdrawal Patient on examination is alert, oriented x 3, no apparent distress. Afebrile, send stable. Patient denies any chest pain or shortness of breath. Anesthesiology was consulted for nerve block placement. Orthopedic surgery wanted patient placed in Mejia's traction . CT head. IMPRESSION: 1. Minimal small-vessel ischemic changes 2. No acute hemorrhage. X-ray left hip. IMPRESSION: 1. Comminuted and displaced intertrochanteric fracture of the left femur with mild varus angulation. Past Medical History: Diagnosis Date Hypertension No outpatient medications have been marked as taking for the 06/28/25 encounter (Hospital Encounter). No family history on file. reports that he has quit smoking. His smoking use included cigarettes. He has never used smokeless tobacco. He reports current alcohol use. He reports that he does not use drugs. Allergies: No Known Allergies ROS Rest of complete ROS are negative. Physical Exam: Blood pressure (!) 112/55, pulse 73, temperature 98.5 F (36.9 C), resp. rate 18, height 5' 2 (1.575 m), weight 160 lb (72.6 kg), SpO2 99%. General Appearance: pt looks comfortable well nourished,not in acute distress HEENT: PERRL, EOMI Skin: Moist and warm Neck supple, no goiter or LN L: CTA, No WW/R/R, not labored H: RRR, S1 S2 Abd: soft, NT/ND, normal BS Ext: no edema, good peripheral pulses left hip pain. Neuro:A, OX3, CN grossly intact, no focal deficit CBC W/DIFF - Abnormal; Notable for the following components: Result Value Ref Range Status RBC 3.86 (*) 4.30 - 5.86 M/uL Final HCT 37.5 (*) 39.0 - 51.5 % Final MCH 34.6 (*) 28.4 - 33.4 pg Final All other components within normal limits COMPREHENSIVE METABOLIC PANEL - Abnormal; Notable for the following components: Sodium 127 (*) 136 - 145 mmol/L Final Potassium 5.2 (*) 3.5 - 5.1 mmol/L Final Comment: Hemolyzed. Hemolysis may affect this result. Specimen may be redrawn at the discretion of ordering physician. CO2 20 (*) 21 - 31 mmol/L Final Glucose 221 (*) 74 - 109 mg/dL Final Calcium 8.5 (*) 8.6 - 10.2 mg/dL Final All other components within normal limits Narrative: KDIGO 2012 GFR Categories Stage Description eGFR (mL/min/1.73m2) G1 Normal or high >=90 G2 Mildly decreased 60-89 G3a Mildly to moderately decreased 45-59 G3b Moderately to severely decreased 30-44 G4 Severely decreased 15-29 G5 Kidney Failure <15 MANUAL SCAN - Normal Old records reviewed: Assessment: # Left hip fracture secondary to mechanical fall. -N.p.o. after midnight. -Nerve block placed by anesthesiology. -IVF-NS at 75 mL/h. -Orthopedic surgery consulted. # [id number]. -IVF-NS at 75 mL per hour. # Hypertension. -Maintain SBP less than 160. # Obstructive sleep apnea. -CPAP at night. # Anticoagulations held for possible surgery in AM. # GI prophylaxis with IV Protonix 40 mg daily. 30 minutes time spent in direct patient interaction/assessment/history and physical examination/documentation. EMELIA Santana 06/28/2025 Cosigned by Baljinder Carrillo MD at 06/29/2025 7:47 AM EDT [facility]10-14-2025 History and physical note* So Ramsey DO - 06/29/2025 1:20 PM EDT Joo Allen Date/Time of Admission: 06/28/2025 6:41 PM CSN: [id number]; Attending Provider: Baljinder Carrillo MD Room/Bed: [facility]/[id number] : 1940 Age: 84 y.o. H&P Interval Note Procedure(s) to be performed as identified below. Indication(s) for procedure as identified below. I have reviewed the History and Physical and/or relevant Consult on this patient. The patient was examined, and I concur with the findings of the History and Physical performed on the date of as identified below. The following changes are present: None. The risks, benefits, and alternative treatments discussed with the patient and/or family. Risk of exposure to and contraction of Covid-19 while patient is in the hospital was reviewed with the patient. Also, risk of Covid-19 infection slowing recovery from the procedure was reviewed. Patient understood and wishes to proceed. Electronically signed by: So Ramsey DO 06/29/2025 . Source Note - Luis Nayak APRN-HEALTH POLICY NURSE - 06/28/2025 8:39 PM EDT [facility] History and Physical Chief Complaint: Fall HPI:Joo Allen is an 84 y.o. male, past medical history of hypertension, obstructive sleep apneaon CPAP, presents after mechanical fall. Patient stated he was at [facility], spouse and him were leaving spouse tripped and fell backwards he went to prevent her from falling ended up falling himself and spouse falling on top of him, imaging shows left hip fracture. ED provider discussed case with on-call orthopedic surgery, will evaluate in AM. Patient endorses drinking every day, denies any alcohol withdrawal Patient on examination is alert, oriented x 3, no apparent distress. Afebrile, send stable. Patient denies any chest pain or shortness of breath. Anesthesiology was consulted for nerve block placement. Orthopedic surgery wanted patient placed in Mejia's traction . CT head. IMPRESSION: 1. Minimal small-vessel ischemic changes 2. No acute hemorrhage. X-ray left hip. IMPRESSION: 1. Comminuted and displaced intertrochanteric fracture of the left femur with mild varus angulation. Past Medical History: Diagnosis Date Hypertension No outpatient medications have been marked as taking for the 06/28/25 encounter (Hospital Encounter). No family history on file. reports that he has quit smoking. His smoking use included cigarettes. He has never used smokeless tobacco. He reports current alcohol use. He reports that he does not use drugs. Allergies: No Known Allergies ROS Rest of complete ROS are negative. Physical Exam: Blood pressure (!) 112/55, pulse 73, temperature 98.5 F (36.9 C), resp. rate 18, height 5' 2 (1.575 m), weight 160 lb (72.6 kg), SpO2 99%. General Appearance: pt looks comfortable well nourished,not in acute distress HEENT: PERRL, EOMI Skin: Moist and warm Neck supple, no goiter or LN L: CTA, No WW/R/R, not labored H: RRR, S1 S2 Abd: soft, NT/ND, normal BS Ext: no edema, good peripheral pulses left hip pain. Neuro:A, OX3, CN grossly intact, no focal deficit CBC W/DIFF - Abnormal; Notable for the following components: Result Value Ref Range Status RBC 3.86 (*) 4.30 - 5.86 M/uL Final HCT 37.5 (*) 39.0 - 51.5 % Final MCH 34.6 (*) 28.4 - 33.4 pg Final All other components within normal limits COMPREHENSIVE METABOLIC PANEL - Abnormal; Notable for the following components: Sodium 127 (*) 136 - 145 mmol/L Final Potassium 5.2 (*) 3.5 - 5.1 mmol/L Final Comment: Hemolyzed. Hemolysis may affect this result. Specimen may be redrawn at the discretion of ordering physician. CO2 20 (*) 21 - 31 mmol/L Final Glucose 221 (*) 74 - 109 mg/dL Final Calcium 8.5 (*) 8.6 - 10.2 mg/dL Final All other components within normal limits Narrative: KDIGO 2012 GFR Categories Stage Description eGFR (mL/min/1.73m2) G1 Normal or high >=90 G2 Mildly decreased 60-89 G3a Mildly to moderately decreased 45-59 G3b Moderately to severely decreased 30-44 G4 Severely decreased 15-29 G5 Kidney Failure <15 MANUAL SCAN - Normal Old records reviewed: Assessment: # Left hip fracture secondary to mechanical fall. -N.p.o. after midnight. -Nerve block placed by anesthesiology. -IVF-NS at 75 mL/h. -Orthopedic surgery consulted. # [id number]. -IVF-NS at 75 mL per hour. # Hypertension. -Maintain SBP less than 160. # Obstructive sleep apnea. -CPAP at night. # Anticoagulations held for possible surgery in AM. # GI prophylaxis with IV Protonix 40 mg daily. 30 minutes time spent in direct patient interaction/assessment/history and physical examination/documentation. EMELIA Santana 06/28/2025 Cosigned by Baljinder Carrillo MD at 06/29/2025 7:47 AM EDT * Eduardo Mortensen DO - 06/29/2025 10:09 AM EDT History and Physical completed within 30 days was reviewed and the patient examined with no changes. The likelihood and severity of risks, benefits and alternative procedures, treatments or therapies were explained. Eduardo Mortensen DO 06/29/2025 10:09 AM * EMELIA Santana - 06/28/2025 8:39 PM EDT [facility] History and Physical Chief Complaint: Fall HPI:Joo Allen is an 84 y.o. male, past medical history of hypertension, obstructive sleep apneaon CPAP, presents after mechanical fall. Patient stated he was at [facility], spouse and him were leaving spouse tripped and fell backwards he went to prevent her from falling ended up falling himself and spouse falling on top of him, imaging shows left hip fracture. ED provider discussed case with on-call orthopedic surgery, will evaluate in AM. Patient endorses drinking every day, denies any alcohol withdrawal Patient on examination is alert, oriented x 3, no apparent distress. Afebrile, send stable. Patient denies any chest pain or shortness of breath. Anesthesiology was consulted for nerve block placement. Orthopedic surgery wanted patient placed in Mejia's traction . CT head. IMPRESSION: 1. Minimal small-vessel ischemic changes 2. No acute hemorrhage. X-ray left hip. IMPRESSION: 1. Comminuted and displaced intertrochanteric fracture of the left femur with mild varus angulation. Past Medical History: Diagnosis Date Hypertension No outpatient medications have been marked as taking for the 06/28/25 encounter (Hospital Encounter). No family history on file. reports that he has quit smoking. His smoking use included cigarettes. He has never used smokeless tobacco. He reports current alcohol use. He reports that he does not use drugs. Allergies: No Known Allergies ROS Rest of complete ROS are negative. Physical Exam: Blood pressure (!) 112/55, pulse 73, temperature 98.5 F (36.9 C), resp. rate 18, height 5' 2 (1.575 m), weight 160 lb (72.6 kg), SpO2 99%. General Appearance: pt looks comfortable well nourished,not in acute distress HEENT: PERRL, EOMI Skin: Moist and warm Neck supple, no goiter or LN L: CTA, No WW/R/R, not labored H: RRR, S1 S2 Abd: soft, NT/ND, normal BS Ext: no edema, good peripheral pulses left hip pain. Neuro:A, OX3, CN grossly intact, no focal deficit CBC W/DIFF - Abnormal; Notable for the following components: Result Value Ref Range Status RBC 3.86 (*) 4.30 - 5.86 M/uL Final HCT 37.5 (*) 39.0 - 51.5 % Final MCH 34.6 (*) 28.4 - 33.4 pg Final All other components within normal limits COMPREHENSIVE METABOLIC PANEL - Abnormal; Notable for the following components: Sodium 127 (*) 136 - 145 mmol/L Final Potassium 5.2 (*) 3.5 - 5.1 mmol/L Final Comment: Hemolyzed. Hemolysis may affect this result. Specimen may be redrawn at the discretion of ordering physician. CO2 20 (*) 21 - 31 mmol/L Final Glucose 221 (*) 74 - 109 mg/dL Final Calcium 8.5 (*) 8.6 - 10.2 mg/dL Final All other components within normal limits Narrative: KDIGO 2012 GFR Categories Stage Description eGFR (mL/min/1.73m2) G1 Normal or high >=90 G2 Mildly decreased 60-89 G3a Mildly to moderately decreased 45-59 G3b Moderately to severely decreased 30-44 G4 Severely decreased 15-29 G5 Kidney Failure <15 MANUAL SCAN - Normal Old records reviewed: Assessment: # Left hip fracture secondary to mechanical fall. -N.p.o. after midnight. -Nerve block placed by anesthesiology. -IVF-NS at 75 mL/h. -Orthopedic surgery consulted. # [id number]. -IVF-NS at 75 mL per hour. # Hypertension. -Maintain SBP less than 160. # Obstructive sleep apnea. -CPAP at night. # Anticoagulations held for possible surgery in AM. # GI prophylaxis with IV Protonix 40 mg daily. 30 minutes time spent in direct patient interaction/assessment/history and physical examination/documentation. EMELIA Santana 06/28/2025 Cosigned by Baljinder Carrillo MD at 06/29/2025 7:47 AM EDT [facility] History and physical note * Eduardo Mortensen DO - 06/29/2025 10:09 AM EDT History and Physical completed within 30 days was reviewed and the patient examined with no changes. The likelihood and severity of risks, benefits and alternative procedures, treatments or therapies were explained. Eduardo Mortensen DO 06/29/2025 10:09 AM [facility] Work Phone: [phone] NoteEncounter Department: [facility] 4 MAIN HANDP by Eduardo Mortensen DO at 06/29/2025 10:09 AM Author: Yordan Manzanorvice: OrthopedicsAuthor Type: Physician Filed: 06/29/2025 10:09 AMDate of Service: 06/29/2025 10:09 AMStatus: Signed Clerk Operator: Eduardo Mortensen DO (Physician) History and Physical completed within 30 days was reviewed and the patient examined with no changes. The likelihood and severity of risks, benefits and alternative procedures, treatments or therapies were explained. Eduardo Mortensen DO 06/29/2025 10:09 [facility]10-14-2025 Consult note* Eduardo Mortensen DO - 06/29/2025 10:06 AM EDTAssociated Order(s): ED CONTACT ORDER; IP CONSULT TO ORTHOPEDIC SURGERY Orthopedic Consult Note: Chief Complaint: I fell and hurt my hip History of Present Illness: Patient is an 84-year-old who fell at [facility] last night when he was getting up and trying to he catch his who was falling and fell onto his left hip sustaining a inner troches upstroke fracture with displacement. He was seen in the emergency department admitted through internal medicine orthopedic consultation was made for definitive care of the left femur fracture. Physical Exam: On physical exam supine in the bed moderate pain as expected. He did have a previousblock that helped him last evening. He is cooperative on examination alert. He complains of nothingbut when questioned does have some discomfort in the head where he hit his head on the table potentially. BP: 140/63 (06/29 832) Temp: 98.1 F (36.7 C) (06/29 832) Pulse: 66 (06/29 832) Resp: 16 (06/29 829) SpO2: 100 % (06/29 832) FiO2 (%): 21 % (06/29 100) O2 Flow Rate (L/min): -- Cardiac (WDL): -- Cardiac Rhythm: -- Past Medical History: Diagnosis Date Hypertension History reviewed. No pertinent surgical history. Social History Socioeconomic History Marital status: Tobacco Use Smoking status: Former Types: Cigarettes Smokeless tobacco: Never Vaping Use Vaping status: Never Used Substance and Sexual Activity Alcohol use: Yes Drug use: Never Sexual activity: Yes Partners: Female Social Drivers of Health Received from [facility] Safety & Environment History reviewed. No pertinent family history. Imaging: Results for orders placed or performed during the hospital encounter of 06/28/25 XR-HIP UNI LEFT 2/3 VIEWS W/PELVIS Narrative EXAM: XR-HIP UNI LEFT 2/3 VIEWS W/PELVIS [id number] DATE OF SERVICE: 06/28/2025 7:56 pm DEMOGRAPHICS: Age: 84 y/o M HISTORY: fall, left hip deformity and pain COMPARISON: No existing relevant imaging study corresponding to the same anatomical region is available. TECHNIQUE: 2 view(s) of the Left hip(s) and a single AP view of the pelvis were obtained. Total Images: 2 FINDINGS: There is a comminuted and displaced intertrochanteric fracture of the left femur. There is medial displacement of the distal fracture fragment. Mild varus angulation. The joint spaces are maintained.There is no significant soft tissue swelling. Impression 1. Comminuted and displaced intertrochanteric fracture of the left femur with mild varus angulation. This dictation was created with voice recognition software. While attempts have been made to reviewthe dictation as it is transcribed, on occasion the spoken word can be misinterpreted by the technology leading to omissions or inappropriate words, phrases or sentences. Electronically Signed by: Saúl Saeed DO, 06/28/2025 8:16 PM Dictation workstation: [id number] CT-HEAD W/O CONTRAST Narrative EXAM: CT-HEAD W/O CONTRAST [id number] DATE OF SERVICE: 06/28/2025 7:37 pm DEMOGRAPHICS: Age: 84 y/o M HISTORY: fall. pt denies head injury fall, on ASA COMPARISON: No existing relevant imaging study corresponding to the same anatomical region is available. TECHNIQUE: DOSE OPTIMIZATION: CT radiation dose optimization techniques (automated exposure control, and use of iterative reconstruction techniques, or adjustment of the mA and/or kV according to patient size) were used to limit patient radiation dose. TECHNICAL DESCRIPTION: Contiguous axial slices of the head were submitted without IV contrast. FINDINGS: Sinuses and mastoids: There are no fluid levels. Orbits: No acute orbital abnormality. Brain: Ventricles and sulci are at the upper limits of normal in caliber. There is no midline shift. Dural calcifications are noted. Vascular calcifications are noted. Minimal white-matter small-vessel ischemic changes are noted. There is no parenchymal or extra-axial hematoma. Impression 1. Minimal small-vessel ischemic changes 2. No acute hemorrhage. This dictation was created with voice recognition software. While attempts have been made to reviewthe dictation as it is transcribed, on occasion the spoken word can be misinterpreted by the technology leading to omissions or inappropriate words, phrases or sentences. Electronically Signed by: Abdulkadir Pelaez MD, 06/28/2025 7:55 PM Dictation workstation: [id number] CT-SPINE CERVICAL WO CONTRAST Narrative EXAM: CT-SPINE CERVICAL WO CONTRAST [id number] DATE OF SERVICE: 06/28/2025 7:37 pm DEMOGRAPHICS: Age: 84 y/o M HISTORY: fall fall on ASA COMPARISON: No existing relevant imaging study corresponding to the same anatomical region is available. TECHNIQUE: DOSE OPTIMIZATION: CT radiation dose optimization techniques (automated exposure control, and use of iterative reconstruction techniques, or adjustment of the mA and/or kV according to patient size) were used to limit patient radiation dose. TECHNICAL DESCRIPTION: Contiguous axial slices of the cervical spine were submitted without IV administration of contrast.Additional coronal and sagittal reformatted images were submitted. FINDINGS: Grade 1 anterolisthesis at C4-5.Theremaining cervical lordosis is maintained. The vertebral body heights are normal. The mineralization is normal. No acute fracture or subluxation is seen. The atlantoaxial jointdemonstrates degenerative changes. 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 Uncovertebral and endplate osteophytosis is seen. No prevertebral soft tissue abnormality is seen. Multilevel disc height loss most prominent at C5-6 with severe narrowing with a posterior disc osteophyte complex. Posterior disc osteophyte complexes at C3-4, C4-5, and C6-7. Obgf-gi-hmemhlcs central canal stenosis at C5-6. Multilevel foraminal stenosis is seen secondary to uncovertebral osteophytosis and facet arthropathy which is advanced at multiple levels. Impression 1. No CT evidence of acute traumatic injury in the cervical spine. 2. Multilevel degenerative spondylosis of the cervical spine as noted above. This dictation was created with voice recognition software. While attempts have been made to reviewthe dictation as it is transcribed, on occasion the spoken word can be misinterpreted by the technology leading to omissions or inappropriate words, phrases or sentences. Electronically Signed by: Marlon Covarrubias MD, 06/28/2025 8:03 PM Dictation workstation: [id number] XR-ELBOW LEFT 3 OR MORE VIEWS Narrative EXAM: XR-ELBOW LEFT 3 OR MORE VIEWS [id number] DATE OF SERVICE: 06/28/2025 7:55 pm DEMOGRAPHICS: Age: 84 y/o M HISTORY: Fall fall, swelling of left elbow COMPARISON: No existing relevant imaging study corresponding to the same anatomical region is available. TECHNIQUE: Three view(s) of the left elbow was/were obtained. Total Images: 3 FINDINGS: The osseous structures are intact. The joint spaces are maintained. Soft tissue calcifications are noted adjacent to the proximal ulna on the posterior side. Impression 1. No acute findings This dictation was created with voice recognition software. While attempts have been made to reviewthe dictation as it is transcribed, on occasion the spoken word can be misinterpreted by the technology leading to omissions or inappropriate words, phrases or sentences. Electronically Signed by: Priaynka Kirkland DO, 06/28/2025 8:12 PM Dictation workstation: [id number] Impression: Intertrochanteric trope femur fracture with gross displacement and comminution. Plan: Intermedullary nailing left femur. Patient will be n.p.o., TXA and Ancef were ordered preoperatively, anticoagulation was held. Thank you for allowing me to participate in the care of this patient. Please do not hesitate to call with any questions or concerns, Sincerely. Dr. [facility] Office Eduardo Mortensen DO 06/29/2025 [facility]10-14-2025 Consult note* Eduardo Mortensen DO - 06/29/2025 10:06 AM EDTAssociated Order(s): ED CONTACT ORDER; IP CONSULT TO ORTHOPEDIC SURGERY Orthopedic Consult Note: Chief Complaint: I fell and hurt my hip History of Present Illness: Patient is an 84-year-old who fell at [facility] last night when he was getting up and trying to he catch his who was falling and fell onto his left hip sustaining a inner troches upstroke fracture with displacement. He was seen in the emergency department admitted through internal medicine orthopedic consultation was made for definitive care of the left femur fracture. Physical Exam: On physical exam supine in the bed moderate pain as expected. He did have a previousblock that helped him last evening. He is cooperative on examination alert. He complains of nothingbut when questioned does have some discomfort in the head where he hit his head on the table potentially. BP: 140/63 (06/29 832) Temp: 98.1 F (36.7 C) (06/29 832) Pulse: 66 (06/29 832) Resp: 16 (06/29 829) SpO2: 100 % (06/29 832) FiO2 (%): 21 % (06/29 100) O2 Flow Rate (L/min): -- Cardiac (WDL): -- Cardiac Rhythm: -- Past Medical History: Diagnosis Date Hypertension History reviewed. No pertinent surgical history. Social History Socioeconomic History Marital status: Tobacco Use Smoking status: Former Types: Cigarettes Smokeless tobacco: Never Vaping Use Vaping status: Never Used Substance and Sexual Activity Alcohol use: Yes Drug use: Never Sexual activity: Yes Partners: Female Social Drivers of Health Received from [facility] Safety & Environment History reviewed. No pertinent family history. Imaging: Results for orders placed or performed during the hospital encounter of 06/28/25 XR-HIP UNI LEFT 2/3 VIEWS W/PELVIS Narrative EXAM: XR-HIP UNI LEFT 2/3 VIEWS W/PELVIS [id number] DATE OF SERVICE: 06/28/2025 7:56 pm DEMOGRAPHICS: Age: 84 y/o M HISTORY: fall, left hip deformity and pain COMPARISON: No existing relevant imaging study corresponding to the same anatomical region is available. TECHNIQUE: 2 view(s) of the Left hip(s) and a single AP view of the pelvis were obtained. Total Images: 2 FINDINGS: There is a comminuted and displaced intertrochanteric fracture of the left femur. There is medial displacement of the distal fracture fragment. Mild varus angulation. The joint spaces are maintained.There is no significant soft tissue swelling. Impression 1. Comminuted and displaced intertrochanteric fracture of the left femur with mild varus angulation. This dictation was created with voice recognition software. While attempts have been made to reviewthe dictation as it is transcribed, on occasion the spoken word can be misinterpreted by the technology leading to omissions or inappropriate words, phrases or sentences. Electronically Signed by: Saúl Saeed DO, 06/28/2025 8:16 PM Dictation workstation: [id number] CT-HEAD W/O CONTRAST Narrative EXAM: CT-HEAD W/O CONTRAST [id number] DATE OF SERVICE: 06/28/2025 7:37 pm DEMOGRAPHICS: Age: 84 y/o M HISTORY: fall. pt denies head injury fall, on ASA COMPARISON: No existing relevant imaging study corresponding to the same anatomical region is available. TECHNIQUE: DOSE OPTIMIZATION: CT radiation dose optimization techniques (automated exposure control, and use of iterative reconstruction techniques, or adjustment of the mA and/or kV according to patient size) were used to limit patient radiation dose. TECHNICAL DESCRIPTION: Contiguous axial slices of the head were submitted without IV contrast. FINDINGS: Sinuses and mastoids: There are no fluid levels. Orbits: No acute orbital abnormality. Brain: Ventricles and sulci are at the upper limits of normal in caliber. There is no midline shift. Dural calcifications are noted. Vascular calcifications are noted. Minimal white-matter small-vessel ischemic changes are noted. There is no parenchymal or extra-axial hematoma. Impression 1. Minimal small-vessel ischemic changes 2. No acute hemorrhage. This dictation was created with voice recognition software. While attempts have been made to reviewthe dictation as it is transcribed, on occasion the spoken word can be misinterpreted by the technology leading to omissions or inappropriate words, phrases or sentences. Electronically Signed by: Abdulkadir Pelaez MD, 06/28/2025 7:55 PM Dictation workstation: [id number] CT-SPINE CERVICAL WO CONTRAST Narrative EXAM: CT-SPINE CERVICAL WO CONTRAST [id number] DATE OF SERVICE: 06/28/2025 7:37 pm DEMOGRAPHICS: Age: 84 y/o M HISTORY: fall fall on ASA COMPARISON: No existing relevant imaging study corresponding to the same anatomical region is available. TECHNIQUE: DOSE OPTIMIZATION: CT radiation dose optimization techniques (automated exposure control, and use of iterative reconstruction techniques, or adjustment of the mA and/or kV according to patient size) were used to limit patient radiation dose. TECHNICAL DESCRIPTION: Contiguous axial slices of the cervical spine were submitted without IV administration of contrast.Additional coronal and sagittal reformatted images were submitted. FINDINGS: Grade 1 anterolisthesis at C4-5.Theremaining cervical lordosis is maintained. The vertebral body heights are normal. The mineralization is normal. No acute fracture or subluxation is seen. The atlantoaxial jointdemonstrates degenerative changes. 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 Uncovertebral and endplate osteophytosis is seen. No prevertebral soft tissue abnormality is seen. Multilevel disc height loss most prominent at C5-6 with severe narrowing with a posterior disc osteophyte complex. Posterior disc osteophyte complexes at C3-4, C4-5, and C6-7. Hqvv-dn-wnezozgx central canal stenosis at C5-6. Multilevel foraminal stenosis is seen secondary to uncovertebral osteophytosis and facet arthropathy which is advanced at multiple levels. Impression 1. No CT evidence of acute traumatic injury in the cervical spine. 2. Multilevel degenerative spondylosis of the cervical spine as noted above. This dictation was created with voice recognition software. While attempts have been made to reviewthe dictation as it is transcribed, on occasion the spoken word can be misinterpreted by the technology leading to omissions or inappropriate words, phrases or sentences. Electronically Signed by: Marlon Covarrubias MD, 06/28/2025 8:03 PM Dictation workstation: [id number] XR-ELBOW LEFT 3 OR MORE VIEWS Narrative EXAM: XR-ELBOW LEFT 3 OR MORE VIEWS [id number] DATE OF SERVICE: 06/28/2025 7:55 pm DEMOGRAPHICS: Age: 84 y/o M HISTORY: Fall fall, swelling of left elbow COMPARISON: No existing relevant imaging study corresponding to the same anatomical region is available. TECHNIQUE: Three view(s) of the left elbow was/were obtained. Total Images: 3 FINDINGS: The osseous structures are intact. The joint spaces are maintained. Soft tissue calcifications are noted adjacent to the proximal ulna on the posterior side. Impression 1. No acute findings This dictation was created with voice recognition software. While attempts have been made to reviewthe dictation as it is transcribed, on occasion the spoken word can be misinterpreted by the technology leading to omissions or inappropriate words, phrases or sentences. Electronically Signed by: Priyanka Kirkland DO, 06/28/2025 8:12 PM Dictation workstation: [id number] Impression: Intertrochanteric trope femur fracture with gross displacement and comminution. Plan: Intermedullary nailing left femur. Patient will be n.p.o., TXA and Ancef were ordered preoperatively, anticoagulation was held. Thank you for allowing me to participate in the care of this patient. Please do not hesitate to call with any questions or concerns, Sincerely. Dr. [facility] Office Eduardo Mortensen DO 06/29/2025 documented in this encounterMed[facility]10-14-[facility] NoteEncounter Department: [facility] 4 MAIN Progress Notes by Baljinder Carrillo MD at 06/29/2025 9:38 AM Author: SHAE Moultonervice: HospitalistAuthor Type: Physician Filed: 06/29/2025 12:53 PMDate of Service: 06/29/2025 9:38 AMStatus: Signed Clerk Operator: Baljinder Carrillo MD (Physician) [facility] Progress Note Subjective: Interval History: pt seen at bedside Left hip pain is tolerable Patient is scheduled for surgery today Continuous Infusions: -0.9 % sodium chlorideStopped (06/29/25 1240) -lactated ringer's Objective: Vital signs in last 24 hours: Temp: [97.3 ?F (36.3 ?C)-98.5 ?F (36.9 ?C)] 98.1 ?F (36.7 ?C) Pulse: [65-75] 73 Resp: [16-18] 16 BP: (112-140)/(55-70) 139/63 FiO2 (%): [21 %] 21 % Intake/Output last 3 shifts: No intake/output data recorded. Intake/Output this shift: I/O this shift: In: - Out: 350 [Urine:350] Last BMP Result: Recent Labs Lab06/29/25 0432 NA129* K4.6 CL100 CO224 BUN16 CREATININE1.48* GLU99 CALCIUM8.0* Last CBC Result: Recent Labs Lab06/29/25 0432 WBC9.7 QFQYVNNPLA07.7* HCT31.2* YDT259 RBC3.20* No results for input(s): PROTIME , INR in the last 72 hours. Current meds Scheduled Meds: -amLODIPine 5 mgOralDAILY -aspirin 81 mgOralDAILY -atorvastatin 40 mgOralDAILY -BUPivacaine (PF) 30 mLInjectionONCE -ceFAZolin (ANCEF) IVPB 2 gIntravenousONCE -lisinopriL 40 mgOralDAILY -magnesium oxide 200 mgOralDAILY -pantoprazole 40 mgIntravenousDaily at 0600 -ROPivacaine (PF) -tranexamic acid 1,000 mgIntravenousONCE Continuous Infusions: -0.9 % sodium chlorideStopped (06/29/25 1240) -lactated ringer's PRN Meds:.acetaminophen, docusate, ketorolac, melatonin, ondansetron OR ondansetron, ROPivacaine (PF) Physical Exam: Vitals: 06/29/25 [id number]/ [id number] 1142 BP:(!) 140/63(!) 140/22181/63 Pulse:6673 Resp:[id number] Temp:98.1 ?F (36.7 ?C)98.1 ?F (36.7 ?C)98.1 ?F (36.7 ?C) SpO2:98%100%100% Weight: Height: General appearance : L:CTA, no W/R/R, not labored H:RRR, S1S2 Abd:Soft ND/NT, normal BS Ext: no edema Orders Placed This Encounter Procedures -Diet-NPO -Diet-NPO After Midnight Nothing By Mouth-NPO Assessment: Principal Problem: Closed left hip fracture, initial encounter ([facility]) Plan: Left hip fracture secondary to mechanical fall continue pain control continue n.p.o. patient is scheduled for surgery Ortho input appreciated Hyponatremia sodium level 129 continue IV fluids Hypertension Obstructive sleep apnea wears CPAP at night HTN continue Norvasc continue lisinopril Hyperlipidemia continue statin CODE STATUS full DVT prophylaxis SCD for now Will add lovenox Discussed with multiple family members at bedside Baljinder Carrillo MD 06/29/2025 This chart entry has been completed using [employer] Dictation Software. While attempts have been made to ensure accuracy, certain words and phrases may not be entered as intended.[facility]10-14-2025 Plan of care note* Care Plan - Harinder Knight RN - 06/29/2025 6:10 AM EDT End of Shift and Plan of Care Summary Shift assessment completed (see flowsheet). Medications due administered as ordered. Patient goals discussed. All Patient needs met at this time. Confirmed safe environment with purposeful hourly rounding. Bedside table and call button left within reach. Pt remained safe throughout the night, no signs of distress noted. Comfort care . Hourly rounding and medications provided. Goals per Patient Condition Fall Prevention Plan: Patient will remain free from falls. See the Daily cares/safety flowsheet forintervention documentation. DVT Prophylaxis in Use: Patient will remain free from DVT. See Daily cares/safety flowsheet for intervention documentation. Pain Management Plan: Patient is being monitored for pain and response to treatment. See Vital Signs Complex Assessment flowsheet and [facility] for intervention documentation. Goals/Plan for shift Patient/Family stated goal for shift: safety and comfort Nursing goal for shift: safety and comfort Plan: hr rounding and meds Goals/Plan for Hospital Stay Patient/Family stated goal for hospital stay: safety and comfort Nursing goal for hospital stay: safety and comfort Plan hr rounding and meds [facility]10[facility] NoteEncounter Department: [facility] 4 MAIN Progress Notes by Sherrill Cox RN at 06/29/2025 12:19 AM Author: Sherrill Cox, RNService: -Author Type: Registered Nurse Filed: 06/29/2025 12:20 AMDate of Service: 06/29/2025 12:19 AMStatus: Signed Clerk Operator: Sherrill Cox RN (Registered Nurse) 4 Eyes in 4 Hours Admission/Transfer Wound Evaluation of Pressure Points All pressure points below have been assessed. Large bruise present on right elbow, no other skin issues present on admission. If Pressure injury present, please complete the following: -Location of abnormal finding: NA -Add Pressure Injury to LDA/Wound Flowsheet (Describe and measure wound) -Order Wound Care Consult per pressure injury prevention policy -Enter photo into media (with measuring device and pt. identifier) per policy -If new admission to hospital: Wound RN to create Present on Admission (POA) Wound Note Name of 2nd RN performing assessment: Yessy Norris NA [facility]10-13-2025 Emergency department Note* Yvette Stoner RN - 06/28/2025 9:31 PM EDT Report called to Sherrill BETANCOURT on 4M at this time. All questions answered. [facility]10-13-2025 Emergency department Note* Yvette Stoner RN - 06/28/2025 9:31 PM EDT Report called to Sherrill BETANCOURT on 4M at this time. All questions answered. * Yvette Stoner RN - 06/28/2025 9:08 PM EDT Femoral nerve block perfromed from 3777-2485 25 mL ropivacaine administered for procedure by Dr. Jaramillo * Yvette Stoner RN - 06/28/2025 8:57 PM EDT Clint at bedside to do L femoral nerve block Informed consent obtained with dr Jaramillo * Yvette Stoner RN - 06/28/2025 8:23 PM EDT ED to Inpatient SBAR Hand-off Situation Joo Allen [id number] 84 y.o. ED ER 22/ER 22 No Known Allergies Isolation Status: No active isolations Chicken body weight: 54.6 kg (120 lb 5.9 oz) Adjusted ideal body weight: 61.8 kg (136 lb 3.6 oz) Last Filed Weights 06/28/25 185 Weight: 160 lb (72.6 kg) Weight Method: Stated Most recent height: 5' 2 (1.575 m) [employer] [facility] Med List Status: In Progress Marked as Reviewed: Yes Code Status:No Order Are any Caregivers Present? yes Patient arrived from: Other Chief Complaint Patient presents with Fall Final diagnoses: Fall from standing, initial encounter Intertrochanteric fracture, closed, left, initial encounter ([facility]) XR-HIP UNI LEFT 2/3 VIEWS W/PELVIS Final Result 1. Comminuted and displaced intertrochanteric fracture of the left femur with mild varus angulation. This dictation was created with voice recognition software. While attempts have been made to reviewthe dictation as it is transcribed, on occasion the spoken word can be misinterpreted by the technology leading to omissions or inappropriate words, phrases or sentences. Electronically Signed by: Saúl Saeed DO, 06/28/2025 8:16 PM Dictation workstation: [id number] XR-ELBOW LEFT 3 OR MORE VIEWS Final Result 1. No acute findings This dictation was created with voice recognition software. While attempts have been made to reviewthe dictation as it is transcribed, on occasion the spoken word can be misinterpreted by the technology leading to omissions or inappropriate words, phrases or sentences. Electronically Signed by: Priyanka Kirkland DO, 06/28/2025 8:12 PM Dictation workstation: [id number] CT-HEAD W/O CONTRAST Final Result 1. Minimal small-vessel ischemic changes 2. No acute hemorrhage. This dictation was created with voice recognition software. While attempts have been made to reviewthe dictation as it is transcribed, on occasion the spoken word can be misinterpreted by the technology leading to omissions or inappropriate words, phrases or sentences. Electronically Signed by: Abdulkadir Pelaez MD, 06/28/2025 7:55 PM Dictation workstation: [id number] CT-SPINE CERVICAL WO CONTRAST Final Result 1. No CT evidence of acute traumatic injury in the cervical spine. 2. Multilevel degenerative spondylosis of the cervical spine as noted above. This dictation was created with voice recognition software. While attempts have been made to reviewthe dictation as it is transcribed, on occasion the spoken word can be misinterpreted by the technology leading to omissions or inappropriate words, phrases or sentences. Electronically Signed by: Marlon Covarrubias MD, 06/28/2025 8:03 PM Dictation workstation: [id number] Abnormal Labs Reviewed CBC W/DIFF - Abnormal; Notable for the following components: Result Value RBC 3.86 (*) HCT 37.5 (*) MCH 34.6 (*) All other components within normal limits COMPREHENSIVE METABOLIC PANEL - Abnormal; Notable for the following components: Sodium 127 (*) Potassium 5.2 (*) CO2 20 (*) Glucose 221 (*) Calcium 8.5 (*) All other components within normal limits Narrative: KDIGO 2012 GFR Categories Stage Description eGFR (mL/min/1.73m2) G1 Normal or high >=90 G2 Mildly decreased 60-89 G3a Mildly to moderately decreased 45-59 G3b Moderately to severely decreased 30-44 G4 Severely decreased 15-29 G5 Kidney Failure <15 Background Problem List[1] Assessment BP: 112/55 (06/28 1951) Temp: 98.5 F (36.9 C) (06/28 1851) Pulse: 73 (06/28 1951) Resp: 18 (06/28 1951) SpO2: 99 % (06/28 1951) FiO2 (%): -- O2 Flow Rate (L/min): -- Cardiac (WDL): -- Cardiac Rhythm: -- Pain Scale: 0 Pain Assessment: Pain Assessment: Verbal Pain 0-10 Scale: 0 Pain Type: Acute pain Mental status: Eye Opening: Spontaneous Best Verbal Response: Oriented Best Motor Response: Obeys commands [place] Coma Scale Score: 15 Patient currently on oxygen: no Active LDAs Patient Lines/Drains/Airways Status Active LDAs Name Placement date Placement time Site Days Peripheral IV 06/28/251857 Anterior;Right Forearm 06/28/251857 -- less than 1 Currently Infusing None Fall Risk: 60 Restraints: Pertinent or High Risk Medications/Drips: no If Yes, please provide details: Pending Blood Product Administration: no Follow-Up Communication needed? Receiving unit to call sending nurse? no First Name: Ext: Recommendation Next Steps (if known): admit Plan for Discharge (if known): Additional Comments: n/a If any further questions, please call Sending RN [1] There is no problem list on file for this patient. * Yvette Stoner RN - 06/28/2025 7:53 PM EDT Pt returned from CT at this time. Rounding completed. Endorses pain 1/10 at this time, denies need for pain intervention at this time. * Yvette Stoner RN - 06/28/2025 7:20 PM EDT Pt to CT via transport * Yvette Stoner RN - 06/28/2025 7:08 PM EDT Assumed care of pt at this time from SERAFIN Dean via bedside handoff. Pt resting in bed, respirations even and unlabored. Call light within reach. * Ramez Bahena Jumana, DO - 06/28/2025 6:48 PM EDT Images from the original note were not included. LOCATION OF ENCOUNTER [facility] Emergency Department CHIEF COMPLAINT Chief Complaint Patient presents with Fall HPI Joo Allen is a 84 y.o. male with PMHx of hypertension who presents to the emergency department with complaint of a fall. Patient was at [facility], apparently his started falling and when he tried to catch her he fell backwards landing on his left hip. He denies any LOC, does not believe he hit his head, but family at bedside states he may have hit his head on a table. He also has some swelling of his left elbow. Denies any acute complaints at this time other than his left hip hurting. History obtained from: patient Limitations of history taking: none PCP: Sai Anderson MD REVIEW OF SYSTEMS A 10 point review of systems was completed and pertinent positives and negatives are as above in HPI. Electronic medical records reviewed PAST MEDICAL HISTORY Past Medical History: Diagnosis Date Hypertension SOCIAL HISTORY Social History Socioeconomic History Marital status: Tobacco Use Smoking status: Former Types: Cigarettes Smokeless tobacco: Never Vaping Use Vaping status: Never Used Substance and Sexual Activity Alcohol use: Yes Drug use: Never Sexual activity: Yes Partners: Female Social Drivers of Health Received from [facility] SURGICAL HISTORY History reviewed. No pertinent surgical history. CURRENT MEDICATIONS No outpatient medications have been marked as taking for the 06/28/25 encounter (Hospital Encounter). ALLERGIES No Known Allergies PHYSICAL EXAM VITAL SIGNS: BP 121/70 Pulse 75 Temp 97.3 F (36.3 C) Resp 17 Ht 5' 2 (1.575 m) Wt 157 lb10.1 oz (71.5 kg) SpO2 100% BMI 28.83 kg/m Physical Exam Vitals reviewed. Constitutional: General: He is not in acute distress. Appearance: Normal appearance. HENT: Head: Normocephalic and atraumatic. Nose: Nose normal. Mouth/Throat: Mouth: Mucous membranes are moist. Eyes: Extraocular Movements: Extraocular movements intact. Conjunctiva/sclera: Conjunctivae normal. Neck: Comments: No midline tenderness. Cardiovascular: Comments: Normal rate, regular rhythm. No murmurs. Pulmonary: Comments: Normal effort and breath sounds, not diminished. No respiratory distress, wheezes, rales,or rhonchi. Abdominal: General: Abdomen is flat. Bowel sounds are normal. There is no distension. Palpations: Abdomen is soft. Tenderness: There is no abdominal tenderness. There is no guarding. Musculoskeletal: General: Normal range of motion. Cervical back: Normal range of motion and neck supple. Comments: No midline thoracic or lumbar tenderness. There is tenderness to palpation over the left hip, pain with logroll. Patient has pain when trying to range his left hip through range of motion. There is an obvious deformity. Remainder of major joints and long bones of the extremities intact with no obvious deformity or injury. Skin: General: Skin is warm and dry. Capillary Refill: Capillary refill takes less than 2 seconds. Neurological: General: No focal deficit present. Mental Status: He is alert and oriented to person, place, and time. Psychiatric: Mood and Affect: Mood normal. Behavior: Behavior normal. MEDICATIONS DURING ED COURSE Medications BUPivacaine (PF) (MARCAINE MPF) 0.5 % (5 mg/mL) injection 30 mL (30 mLs Injection Not Given 06/28/252119) acetaminophen (TYLENOL) tablet 650 mg (has no administration in time range) ondansetron (ZOFRAN) injection 4 mg (has no administration in time range) Or ondansetron (ZOFRAN-ODT) disintegrating tablet 4 mg (has no administration in time range) melatonin tablet 3 mg (has no administration in time range) docusate (COLACE) capsule 100 mg (has no administration in time range) pantoprazole (PROTONIX) injection 40 mg (has no administration in time range) 0.9 % sodium chloride infusion (has no administration in time range) ketorolac (TORADOL) injection 15 mg (has no administration in time range) ROPivacaine (PF) (NAROPIN) 5 mg/mL (0.5 %) injection (has no administration in time range) Commonly recognized adverse reactions to above medications were discussed with patient and/or family along with viable medication alternatives. RADIOLOGY/PROCEDURES XR-HIP UNI LEFT 2/3 VIEWS W/PELVIS Final Result 1. Comminuted and displaced intertrochanteric fracture of the left femur with mild varus angulation. This dictation was created with voice recognition software. While attempts have been made to reviewthe dictation as it is transcribed, on occasion the spoken word can be misinterpreted by the technology leading to omissions or inappropriate words, phrases or sentences. Electronically Signed by: Saúl Saeed DO, 06/28/2025 8:16 PM Dictation workstation: [id number] XR-ELBOW LEFT 3 OR MORE VIEWS Final Result 1. No acute findings This dictation was created with voice recognition software. While attempts have been made to reviewthe dictation as it is transcribed, on occasion the spoken word can be misinterpreted by the technology leading to omissions or inappropriate words, phrases or sentences. Electronically Signed by: Priyanka Kirkland DO, 06/28/2025 8:12 PM Dictation workstation: [id number] CT-HEAD W/O CONTRAST Final Result 1. Minimal small-vessel ischemic changes 2. No acute hemorrhage. This dictation was created with voice recognition software. While attempts have been made to reviewthe dictation as it is transcribed, on occasion the spoken word can be misinterpreted by the technology leading to omissions or inappropriate words, phrases or sentences. Electronically Signed by: Abdulkadir Pelaez MD, 06/28/2025 7:55 PM Dictation workstation: [id number] CT-SPINE CERVICAL WO CONTRAST Final Result 1. No CT evidence of acute traumatic injury in the cervical spine. 2. Multilevel degenerative spondylosis of the cervical spine as noted above. This dictation was created with voice recognition software. While attempts have been made to reviewthe dictation as it is transcribed, on occasion the spoken word can be misinterpreted by the technology leading to omissions or inappropriate words, phrases or sentences. Electronically Signed by: Marlon Covarrubias MD, 06/28/2025 8:03 PM Dictation workstation: [id number] CBC W/DIFF - Abnormal; Notable for the following components: Result Value Ref Range Status RBC 3.86 (*) 4.30 - 5.86 M/uL Final HCT 37.5 (*) 39.0 - 51.5 % Final MCH 34.6 (*) 28.4 - 33.4 pg Final All other components within normal limits COMPREHENSIVE METABOLIC PANEL - Abnormal; Notable for the following components: Sodium 127 (*) 136 - 145 mmol/L Final Potassium 5.2 (*) 3.5 - 5.1 mmol/L Final Comment: Hemolyzed. Hemolysis may affect this result. Specimen may be redrawn at the discretion of ordering physician. CO2 20 (*) 21 - 31 mmol/L Final Glucose 221 (*) 74 - 109 mg/dL Final Calcium 8.5 (*) 8.6 - 10.2 mg/dL Final All other components within normal limits Narrative: KDIGO 2012 GFR Categories Stage Description eGFR (mL/min/1.73m2) G1 Normal or high >=90 G2 Mildly decreased 60-89 G3a Mildly to moderately decreased 45-59 G3b Moderately to severely decreased 30-44 G4 Severely decreased 15-29 G5 Kidney Failure <15 MANUAL SCAN - Normal Nursing Notes were reviewed COURSE & MEDICAL DECISION MAKING Pertinent Labs & Imaging studies reviewed. (See above for details) Number and complexity of problems Differential diagnosis: Fall, closed head injury, intracranial hemorrhage, fracture, dislocation, contusion, strain, sprain, electrolyte derangement, dehydration, among others MDM DATA External documents reviewed: No recent pertinent documents available My EKG interpretation: N/A My CT interpretation (all CT scans are officially interpreted by radiologist after my initial review of images and their interpretation supercedes ED physician interpretation for abnormalities): Interpreted by radiologist My X-ray interpretation: Displaced comminuted intertrochanteric fracture My bedside POC ultrasound interpretation (ultrasounds officially ordered are interpreted by radiologist): N/A Decision rules/scores evaluated: None Discussed case with: Orthopedics-Dr. Mortensen, hospitalist-Dr. Clint Coker TREATMENT AND DISPOSITION ED Course as of 06/28/252211Jun 28, 2025 1906 Seen and examined in room 22 84 year old male presents to the ED with complaint of a fall. Patient's fell into him causing him to fall to the ground. He is complaining of left hip pain, has some swelling of the left elbow. May have hit his head, received fentanyl and route, does not want anything else for pain at this time. On aspirin. Labs, imaging ordered [KM] 2019 XR-HIP UNI LEFT 2/3 VIEWS W/PELVIS 1. Comminuted and displaced intertrochanteric fracture of the left femur with mild varus angulation. [KM] 2020 XR-ELBOW LEFT 3 OR MORE VIEWS 1. No acute findings [KM] 2020 CT-SPINE CERVICAL WO CONTRAST 1. No CT evidence of acute traumatic injury in the cervical spine. 2. Multilevel degenerative spondylosis of the cervical spine as noted above. [KM] 2020 CT-HEAD W/O CONTRAST 1. Minimal small-vessel ischemic changes 2. No acute hemorrhage. [KM] 2022 Reviewed labs and imaging with patient at bedside. Will discuss with orthopedic surgery, anesthesia for possible block, and hospitalist for admission. [KM] 2026 Dr. Mortensen kindly agrees to consult on the patient. Discussed with anesthesiologist for hipblock. Discussed with KAREN Nayak for hospitalist service who kindly accepts for admission. [KM] ED Course User Index [KM] Ramez Denney DO Shared decision making: All opportunities available to involve the patient directly in their care were utilized to ultimately develop a plan of care for the patient's symptoms today and in the futureafter their emergency department visit. Social Determinants of Health that impact treatment or disposition: None Code status: MEDICATIONS PRESCRIBED AT DISCHARGE There are no discharge medications for this patient. [id number] - Emergency Medicine: Utilization of CT for Minor Blunt Head Trauma (Adult) [X] Patient is 18 or older, presenting with minor blunt head trauma. Head CT (including cosigned orders) was ordered by an emergency healthcare administrator for trauma because (select one or more): [SATISFIESMIPS PERFORMANCE] [X] Patient is 65 or older SEPSIS Sepsis Documentation: Patient has no SIRS or source of infection at this time, therefore there is no suspicion of sepsis, severe sepsis, or septic shock. If narcotics were prescribed at this ED visit, an OARRS report was completed on [place] Automated Rx Reporting System website via [employer] based [employer] and was reviewed for all controlled substance prescriptions in past one year. FINAL IMPRESSION 1. Intertrochanteric fracture, closed, left, initial encounter ([facility]) 2. Fall from standing, initial encounter Electronically signed by: Ramez Denney DO, 06/28/2025 10:09 PM Portions of this note were created utilizing Z[employer]ory dictation software. Although all attempts are made to clarify errors made by the software during dictation, errors do still occur. If there is any question about the content of this note and clarification is needed, please contact the author directly. Ramez Denney DO 06/28/252211 * Dianne Cornejo RN - 06/28/2025 6:43 PM EDT Pt arrives to the ER from [facility] via [facility] with a fall. Pt reports, he was trying to catch his from falling and when he went to catch her, he fell back. Pt is c/o left hip pain. Pt deniesany LOC or hitting his head. Pt was given fentanyl in route to the ER. Pt is A&OX4, skin warm and dry at this time. * Gabriela Sahni RN - 06/28/2025 6:42 PM EDT Bed: ER 22 Expected date: 06/28/25 Expected time: 6:38 PM Means of arrival: [facility] Comments: Ham 28 [facility] Note * Yvette Stoner RN - 06/28/2025 9:08 PM EDT Femoral nerve block perfromed from [id number] 25 mL ropivacaine administered for procedure by Dr. Jaramillo [facility]10-13-2025 Emergency department Note* Yvette Stoner RN - 06/28/2025 8:57 PM EDT Clint at bedside to do L femoral nerve block Informed consent obtained with dr Jaramillo [facility]10-13-2025 History and physical note* Luis Nayak, RECOVERY AGENT- HEALTH POLICY NURSE - 06/28/2025 8:39 PM EDT [facility] History and Physical Chief Complaint: Fall HPI:Joo Allen is an 84 y.o. male, past medical history of hypertension, obstructive sleep apneaon CPAP, presents after mechanical fall. Patient stated he was at [facility], spouse and him were leaving spouse tripped and fell backwards he went to prevent her from falling ended up falling himself and spouse falling on top of him, imaging shows left hip fracture. ED provider discussed case with on-call orthopedic surgery, will evaluate in AM. Patient endorses drinking every day, denies any alcohol withdrawal Patient on examination is alert, oriented x 3, no apparent distress. Afebrile, send stable. Patient denies any chest pain or shortness of breath. Anesthesiology was consulted for nerve block placement. Orthopedic surgery wanted patient placed in Mejia's traction . CT head. IMPRESSION: 1. Minimal small-vessel ischemic changes 2. No acute hemorrhage. X-ray left hip. IMPRESSION: 1. Comminuted and displaced intertrochanteric fracture of the left femur with mild varus angulation. Past Medical History: Diagnosis Date Hypertension No outpatient medications have been marked as taking for the 06/28/25 encounter (Hospital Encounter). No family history on file. reports that he has quit smoking. His smoking use included cigarettes. He has never used smokeless tobacco. He reports current alcohol use. He reports that he does not use drugs. Allergies: No Known Allergies ROS Rest of complete ROS are negative. Physical Exam: Blood pressure (!) 112/55, pulse 73, temperature 98.5 F (36.9 C), resp. rate 18, height 5' 2 (1.575 m), weight 160 lb (72.6 kg), SpO2 99%. General Appearance: pt looks comfortable well nourished,not in acute distress HEENT: PERRL, EOMI Skin: Moist and warm Neck supple, no goiter or LN L: CTA, No WW/R/R, not labored H: RRR, S1 S2 Abd: soft, NT/ND, normal BS Ext: no edema, good peripheral pulses left hip pain. Neuro:A, OX3, CN grossly intact, no focal deficit CBC W/DIFF - Abnormal; Notable for the following components: Result Value Ref Range Status RBC 3.86 (*) 4.30 - 5.86 M/uL Final HCT 37.5 (*) 39.0 - 51.5 % Final MCH 34.6 (*) 28.4 - 33.4 pg Final All other components within normal limits COMPREHENSIVE METABOLIC PANEL - Abnormal; Notable for the following components: Sodium 127 (*) 136 - 145 mmol/L Final Potassium 5.2 (*) 3.5 - 5.1 mmol/L Final Comment: Hemolyzed. Hemolysis may affect this result. Specimen may be redrawn at the discretion of ordering physician. CO2 20 (*) 21 - 31 mmol/L Final Glucose 221 (*) 74 - 109 mg/dL Final Calcium 8.5 (*) 8.6 - 10.2 mg/dL Final All other components within normal limits Narrative: KDIGO 2012 GFR Categories Stage Description eGFR (mL/min/1.73m2) G1 Normal or high >=90 G2 Mildly decreased 60-89 G3a Mildly to moderately decreased 45-59 G3b Moderately to severely decreased 30-44 G4 Severely decreased 15-29 G5 Kidney Failure <15 MANUAL SCAN - Normal Old records reviewed: Assessment: # Left hip fracture secondary to mechanical fall. -N.p.o. after midnight. -Nerve block placed by anesthesiology. -IVF-NS at 75 mL/h. -Orthopedic surgery consulted. # [id number]. -IVF-NS at 75 mL per hour. # Hypertension. -Maintain SBP less than 160. # Obstructive sleep apnea. -CPAP at night. # Anticoagulations held for possible surgery in AM. # GI prophylaxis with IV Protonix 40 mg daily. 30 minutes time spent in direct patient interaction/assessment/history and physical examination/documentation. EMELIA Santana 06/28/2025 Cosigned by Baljinder Carrillo MD at 06/29/2025 7:47 AM EDT [facility] NoteEncounter Department: [facility] 4 MAIN HANDP by EMELIA Santana at 06/28/2025 8:39 PM Author: EMELIA SantanaService: HospitalistAuthor Type: Certified Nurse Practitioner Filed: 06/28/2025 9:59 PMDate of Service: 06/28/2025 8:39 PMStatus: Signed Clerk Operator: EMELIA Santana (Certified Nurse Practitioner)Cosigner: Baljinder Carrillo MD at 06/29/2025 7:47 AM [facility] History and Physical Chief Complaint: Fall HPI:Joo Allen is an 84 y.o. male, past medical history of hypertension, obstructive sleep apnea on CPAP, presents after mechanical fall. Patient stated he was at [facility], spouse and him were leaving spouse tripped and fell backwards he went to prevent her from falling ended up falling himself and spouse falling on top of him, imaging shows left hip fracture. ED provider discussed case with on-call orthopedic surgery, will evaluate in AM. Patient endorses drinking every day, denies any alcohol withdrawal Patient on examination is alert, oriented x 3, no apparent distress. Afebrile, send stable. Patient denies any chest pain or shortness of breath. Anesthesiology was consulted for nerve block placement. Orthopedic surgery wanted patient placed in Mejia's traction . CT head. IMPRESSION: 1. Minimal small-vessel ischemic changes 2. No acute hemorrhage. X-ray left hip. IMPRESSION: 1. Comminuted and displaced intertrochanteric fracture of the left femur with mild varus angulation. Past Medical History: DiagnosisDate -Hypertension No outpatient medications have been marked as taking for the 06/28/25 encounter (Hospital Encounter). No family history on file. reports that he has quit smoking. His smoking use included cigarettes. He has never used smokeless tobacco. He reports current alcohol use. He reports that he does not use drugs. Allergies: No Known Allergies ROS Rest of complete ROS are negative. Physical Exam: Blood pressure (!) 112/55, pulse 73, temperature 98.5 ?F (36.9 ?C), resp. rate 18, height 5' 2 (1.575 m), weight 160 lb (72.6 kg), SpO2 99%. General Appearance: pt looks comfortable well nourished,not in acute distress HEENT: PERRL, EOMI Skin: Moist and warm Neck supple, no goiter or LN L: CTA, No WW/R/R, not labored H: RRR, S1 S2 Abd: soft, NT/ND, normal BS Ext: no edema, good peripheral pulses left hip pain. Neuro:A, OX3, CN grossly intact, no focal deficit CBC W/DIFF - Abnormal; Notable for the following components: ResultValueRef RangeStatus RBC3.86 (*)4.30 - 5.86 M/uLFinal HCT37.5 (*)39.0 - 51.5 %Final MCH34.6 (*)28.4 - 33.4 pgFinal All other components within normal limits COMPREHENSIVE METABOLIC PANEL - Abnormal; Notable for the following components: [id number] (*)136 - 145 mmol/LFinal Potassium5.2 (*)3.5 - 5.1 mmol/LFinal Comment:Hemolyzed. Hemolysis may affect this result. Specimen may be redrawn at the discretion of ordering physician. CO220 (*)21 - 31 mmol/LFinal [id number] (*)74 - 109 mg/dLFinal Calcium8.5 (*)8.6 - 10.2 mg/dLFinal All other components within normal limits Narrative: KDIGO 2012 GFR Categories Stage Description eGFR (mL/min/1.73m2) G1 Normal or high >=90 G2 Mildly decreased 60-89 G3a Mildly to moderately decreased 45-59 G3b Moderately to severely decreased 30-44 G4 Severely decreased 15-29 G5 Kidney Failure <15 MANUAL SCAN - Normal Old records reviewed: Assessment: # Left hip fracture secondary to mechanical fall. -N.p.o. after midnight. -Nerve block placed by anesthesiology. -IVF-NS at 75 mL/h. -Orthopedic surgery consulted. # [id number]. -IVF-NS at 75 mL per hour. # Hypertension. -Maintain SBP less than 160. # Obstructive sleep apnea. -CPAP at night. # Anticoagulations held for possible surgery in AM. # GI prophylaxis with IV Protonix 40 mg daily. 30 minutes time spent in direct patient interaction/assessment/history and physical examination/documentation. Luis Nayak APRN-HEALTH POLICY NURSE 06/28/2025[facility]10-13-2025 Emergency department Note* Yvette Stoner RN - 06/28/2025 8:23 PM EDT ED to Inpatient SBAR Hand-off Situation Joo Allen [id number] 84 y.o. ED ER 22/ER 22 No Known Allergies Isolation Status: No active isolations Chicken body weight: 54.6 kg (120 lb 5.9 oz) Adjusted ideal body weight: 61.8 kg (136 lb 3.6 oz) Last Filed Weights 06/28/25 185 Weight: 160 lb (72.6 kg) Weight Method: Stated Most recent height: 5' 2 (1.575 m) [employer] [facility] Med List Status: In Progress Marked as Reviewed: Yes Code Status:No Order Are any Caregivers Present? yes Patient arrived from: Other Chief Complaint Patient presents with Fall Final diagnoses: Fall from standing, initial encounter Intertrochanteric fracture, closed, left, initial encounter ([facility]) XR-HIP UNI LEFT 2/3 VIEWS W/PELVIS Final Result 1. Comminuted and displaced intertrochanteric fracture of the left femur with mild varus angulation. This dictation was created with voice recognition software. While attempts have been made to reviewthe dictation as it is transcribed, on occasion the spoken word can be misinterpreted by the technology leading to omissions or inappropriate words, phrases or sentences. Electronically Signed by: Saúl Seaed DO, 06/28/2025 8:16 PM Dictation workstation: [id number] XR-ELBOW LEFT 3 OR MORE VIEWS Final Result 1. No acute findings This dictation was created with voice recognition software. While attempts have been made to reviewthe dictation as it is transcribed, on occasion the spoken word can be misinterpreted by the technology leading to omissions or inappropriate words, phrases or sentences. Electronically Signed by: Priyanka Kirkland DO, 06/28/2025 8:12 PM Dictation workstation: [id number] CT-HEAD W/O CONTRAST Final Result 1. Minimal small-vessel ischemic changes 2. No acute hemorrhage. This dictation was created with voice recognition software. While attempts have been made to reviewthe dictation as it is transcribed, on occasion the spoken word can be misinterpreted by the technology leading to omissions or inappropriate words, phrases or sentences. Electronically Signed by: Abdulkadir Pelaez MD, 06/28/2025 7:55 PM Dictation workstation: [id number] CT-SPINE CERVICAL WO CONTRAST Final Result 1. No CT evidence of acute traumatic injury in the cervical spine. 2. Multilevel degenerative spondylosis of the cervical spine as noted above. This dictation was created with voice recognition software. While attempts have been made to reviewthe dictation as it is transcribed, on occasion the spoken word can be misinterpreted by the technology leading to omissions or inappropriate words, phrases or sentences. Electronically Signed by: Marlon Covarrubias MD, 06/28/2025 8:03 PM Dictation workstation: [id number] Abnormal Labs Reviewed CBC W/DIFF - Abnormal; Notable for the following components: Result Value RBC 3.86 (*) HCT 37.5 (*) MCH 34.6 (*) All other components within normal limits COMPREHENSIVE METABOLIC PANEL - Abnormal; Notable for the following components: Sodium 127 (*) Potassium 5.2 (*) CO2 20 (*) Glucose 221 (*) Calcium 8.5 (*) All other components within normal limits Narrative: KDIGO 2012 GFR Categories Stage Description eGFR (mL/min/1.73m2) G1 Normal or high >=90 G2 Mildly decreased 60-89 G3a Mildly to moderately decreased 45-59 G3b Moderately to severely decreased 30-44 G4 Severely decreased 15-29 G5 Kidney Failure <15 Background Problem List[1] Assessment BP: 112/55 (06/28 1951) Temp: 98.5 F (36.9 C) (06/28 1851) Pulse: 73 (06/28 1951) Resp: 18 (06/28 1951) SpO2: 99 % (06/28 1951) FiO2 (%): -- O2 Flow Rate (L/min): -- Cardiac (WDL): -- Cardiac Rhythm: -- Pain Scale: 0 Pain Assessment: Pain Assessment: Verbal Pain 0-10 Scale: 0 Pain Type: Acute pain Mental status: Eye Opening: Spontaneous Best Verbal Response: Oriented Best Motor Response: Obeys commands [place] Coma Scale Score: 15 Patient currently on oxygen: no Active LDAs Patient Lines/Drains/Airways Status Active LDAs Name Placement date Placement time Site Days Peripheral IV 06/28/251857 Anterior;Right Forearm 06/28/251857 -- less than 1 Currently Infusing None Fall Risk: 60 Restraints: Pertinent or High Risk Medications/Drips: no If Yes, please provide details: Pending Blood Product Administration: no Follow-Up Communication needed? Receiving unit to call sending nurse? no First Name: Ext: Recommendation Next Steps (if known): admit Plan for Discharge (if known): Additional Comments: n/a If any further questions, please call Sending RN [1] There is no problem list on file for this patient. [facility]10-13-2025 Emergency department Note* Yvette Stoner RN - 06/28/2025 7:53 PM EDT Pt returned from CT at this time. Rounding completed. Endorses pain 1/10 at this time, denies need for pain intervention at this time. [facility]10-13-2025 Emergency department Note* Yvette Stoner RN - 06/28/2025 7:20 PM EDT Pt to CT via transport [address]13-2025 Emergency department Note* Yvette Stoner RN - 06/28/2025 7:08 PM EDT Assumed care of pt at this time from SERAFIN Dean via bedside handoff. Pt resting in bed, respirations even and unlabored. Call light within reach. [facility]10-13-2025 Physician Emergency department Note* Ramez Bahena Jumana, DO - 06/28/2025 6:48 PM EDT Images from the original note were not included. LOCATION OF ENCOUNTER [facility] Emergency Department CHIEF COMPLAINT Chief Complaint Patient presents with Fall HPI Joo Allen is a 84 y.o. male with PMHx of hypertension who presents to the emergency department with complaint of a fall. Patient was at [facility], apparently his started falling and when he tried to catch her he fell backwards landing on his left hip. He denies any LOC, does not believe he hit his head, but family at bedside states he may have hit his head on a table. He also has some swelling of his left elbow. Denies any acute complaints at this time other than his left hip hurting. History obtained from: patient Limitations of history taking: none PCP: Sai Anderson MD REVIEW OF SYSTEMS A 10 point review of systems was completed and pertinent positives and negatives are as above in HPI. Electronic medical records reviewed PAST MEDICAL HISTORY Past Medical History: Diagnosis Date Hypertension SOCIAL HISTORY Social History Socioeconomic History Marital status: Tobacco Use Smoking status: Former Types: Cigarettes Smokeless tobacco: Never Vaping Use Vaping status: Never Used Substance and Sexual Activity Alcohol use: Yes Drug use: Never Sexual activity: Yes Partners: Female Social Drivers of Health Received from [facility] SURGICAL HISTORY History reviewed. No pertinent surgical history. CURRENT MEDICATIONS No outpatient medications have been marked as taking for the 06/28/25 encounter (Hospital Encounter). ALLERGIES No Known Allergies PHYSICAL EXAM VITAL SIGNS: BP 121/70 Pulse 75 Temp 97.3 F (36.3 C) Resp 17 Ht 5' 2 (1.575 m) Wt 157 lb10.1 oz (71.5 kg) SpO2 100% BMI 28.83 kg/m Physical Exam Vitals reviewed. Constitutional: General: He is not in acute distress. Appearance: Normal appearance. HENT: Head: Normocephalic and atraumatic. Nose: Nose normal. Mouth/Throat: Mouth: Mucous membranes are moist. Eyes: Extraocular Movements: Extraocular movements intact. Conjunctiva/sclera: Conjunctivae normal. Neck: Comments: No midline tenderness. Cardiovascular: Comments: Normal rate, regular rhythm. No murmurs. Pulmonary: Comments: Normal effort and breath sounds, not diminished. No respiratory distress, wheezes, rales,or rhonchi. Abdominal: General: Abdomen is flat. Bowel sounds are normal. There is no distension. Palpations: Abdomen is soft. Tenderness: There is no abdominal tenderness. There is no guarding. Musculoskeletal: General: Normal range of motion. Cervical back: Normal range of motion and neck supple. Comments: No midline thoracic or lumbar tenderness. There is tenderness to palpation over the left hip, pain with logroll. Patient has pain when trying to range his left hip through range of motion. There is an obvious deformity. Remainder of major joints and long bones of the extremities intact with no obvious deformity or injury. Skin: General: Skin is warm and dry. Capillary Refill: Capillary refill takes less than 2 seconds. Neurological: General: No focal deficit present. Mental Status: He is alert and oriented to person, place, and time. Psychiatric: Mood and Affect: Mood normal. Behavior: Behavior normal. MEDICATIONS DURING ED COURSE Medications BUPivacaine (PF) (MARCAINE MPF) 0.5 % (5 mg/mL) injection 30 mL (30 mLs Injection Not Given 06/28/252119) acetaminophen (TYLENOL) tablet 650 mg (has no administration in time range) ondansetron (ZOFRAN) injection 4 mg (has no administration in time range) Or ondansetron (ZOFRAN-ODT) disintegrating tablet 4 mg (has no administration in time range) melatonin tablet 3 mg (has no administration in time range) docusate (COLACE) capsule 100 mg (has no administration in time range) pantoprazole (PROTONIX) injection 40 mg (has no administration in time range) 0.9 % sodium chloride infusion (has no administration in time range) ketorolac (TORADOL) injection 15 mg (has no administration in time range) ROPivacaine (PF) (NAROPIN) 5 mg/mL (0.5 %) injection (has no administration in time range) Commonly recognized adverse reactions to above medications were discussed with patient and/or family along with viable medication alternatives. RADIOLOGY/PROCEDURES XR-HIP UNI LEFT 2/3 VIEWS W/PELVIS Final Result 1. Comminuted and displaced intertrochanteric fracture of the left femur with mild varus angulation. This dictation was created with voice recognition software. While attempts have been made to reviewthe dictation as it is transcribed, on occasion the spoken word can be misinterpreted by the technology leading to omissions or inappropriate words, phrases or sentences. Electronically Signed by: Saúl Saeed DO, 06/28/2025 8:16 PM Dictation workstation: [id number] XR-ELBOW LEFT 3 OR MORE VIEWS Final Result 1. No acute findings This dictation was created with voice recognition software. While attempts have been made to reviewthe dictation as it is transcribed, on occasion the spoken word can be misinterpreted by the technology leading to omissions or inappropriate words, phrases or sentences. Electronically Signed by: Priyanka Kirkland DO, 06/28/2025 8:12 PM Dictation workstation: [id number] CT-HEAD W/O CONTRAST Final Result 1. Minimal small-vessel ischemic changes 2. No acute hemorrhage. This dictation was created with voice recognition software. While attempts have been made to reviewthe dictation as it is transcribed, on occasion the spoken word can be misinterpreted by the technology leading to omissions or inappropriate words, phrases or sentences. Electronically Signed by: Abdulkadir Pelaez MD, 06/28/2025 7:55 PM Dictation workstation: [id number] CT-SPINE CERVICAL WO CONTRAST Final Result 1. No CT evidence of acute traumatic injury in the cervical spine. 2. Multilevel degenerative spondylosis of the cervical spine as noted above. This dictation was created with voice recognition software. While attempts have been made to reviewthe dictation as it is transcribed, on occasion the spoken word can be misinterpreted by the technology leading to omissions or inappropriate words, phrases or sentences. Electronically Signed by: Marlon Covarrubias MD, 06/28/2025 8:03 PM Dictation workstation: [id number] CBC W/DIFF - Abnormal; Notable for the following components: Result Value Ref Range Status RBC 3.86 (*) 4.30 - 5.86 M/uL Final HCT 37.5 (*) 39.0 - 51.5 % Final MCH 34.6 (*) 28.4 - 33.4 pg Final All other components within normal limits COMPREHENSIVE METABOLIC PANEL - Abnormal; Notable for the following components: Sodium 127 (*) 136 - 145 mmol/L Final Potassium 5.2 (*) 3.5 - 5.1 mmol/L Final Comment: Hemolyzed. Hemolysis may affect this result. Specimen may be redrawn at the discretion of ordering physician. CO2 20 (*) 21 - 31 mmol/L Final Glucose 221 (*) 74 - 109 mg/dL Final Calcium 8.5 (*) 8.6 - 10.2 mg/dL Final All other components within normal limits Narrative: KDIGO 2012 GFR Categories Stage Description eGFR (mL/min/1.73m2) G1 Normal or high >=90 G2 Mildly decreased 60-89 G3a Mildly to moderately decreased 45-59 G3b Moderately to severely decreased 30-44 G4 Severely decreased 15-29 G5 Kidney Failure <15 MANUAL SCAN - Normal Nursing Notes were reviewed COURSE & MEDICAL DECISION MAKING Pertinent Labs & Imaging studies reviewed. (See above for details) Number and complexity of problems Differential diagnosis: Fall, closed head injury, intracranial hemorrhage, fracture, dislocation, contusion, strain, sprain, electrolyte derangement, dehydration, among others MDM DATA External documents reviewed: No recent pertinent documents available My EKG interpretation: N/A My CT interpretation (all CT scans are officially interpreted by radiologist after my initial review of images and their interpretation supercedes ED physician interpretation for abnormalities): Interpreted by radiologist My X-ray interpretation: Displaced comminuted intertrochanteric fracture My bedside POC ultrasound interpretation (ultrasounds officially ordered are interpreted by radiologist): N/A Decision rules/scores evaluated: None Discussed case with: Orthopedics-Dr. Mortensen, hospitalist-Dr. Clint Coker TREATMENT AND DISPOSITION ED Course as of 06/28/252 SatJun 28, 2025 1906 Seen and examined in room 22 84 year old male presents to the ED with complaint of a fall. Patient's fell into him causing him to fall to the ground. He is complaining of left hip pain, has some swelling of the left elbow. May have hit his head, received fentanyl and route, does not want anything else for pain at this time. On aspirin. Labs, imaging ordered [KM] 2019 XR-HIP UNI LEFT 2/3 VIEWS W/PELVIS 1. Comminuted and displaced intertrochanteric fracture of the left femur with mild varus angulation. [KM] 2020 XR-ELBOW LEFT 3 OR MORE VIEWS 1. No acute findings [KM] 2020 CT-SPINE CERVICAL WO CONTRAST 1. No CT evidence of acute traumatic injury in the cervical spine. 2. Multilevel degenerative spondylosis of the cervical spine as noted above. [KM] 2020 CT-HEAD W/O CONTRAST 1. Minimal small-vessel ischemic changes 2. No acute hemorrhage. [KM] 2022 Reviewed labs and imaging with patient at bedside. Will discuss with orthopedic surgery, anesthesia for possible block, and hospitalist for admission. [KM] 2026 Dr. Mortensen kindly agrees to consult on the patient. Discussed with anesthesiologist for hipblock. Discussed with KAREN Nayak for hospitalist service who kindly accepts for admission. [KM] ED Course User Index [KM] Ramez Denney, Shared decision making: All opportunities available to involve the patient directly in their care were utilized to ultimately develop a plan of care for the patient's symptoms today and in the futureafter their emergency department visit. Social Determinants of Health that impact treatment or disposition: None Code status: MEDICATIONS PRESCRIBED AT DISCHARGE There are no discharge medications for this patient. [id number] - Emergency Medicine: Utilization of CT for Minor Blunt Head Trauma (Adult) [X] Patient is 18 or older, presenting with minor blunt head trauma. Head CT (including cosigned orders) was ordered by an emergency healthcare administrator for trauma because (select one or more): [SATISFIESMIPS PERFORMANCE] [X] Patient is 65 or older SEPSIS Sepsis Documentation: Patient has no SIRS or source of infection at this time, therefore there is no suspicion of sepsis, severe sepsis, or septic shock. If narcotics were prescribed at this ED visit, an OARRS report was completed on [place] [employer] Reporting System website via [employer] based [employer] and was reviewed for all controlled substance prescriptions in past one year. FINAL IMPRESSION 1. Intertrochanteric fracture, closed, left, initial encounter ([facility]) 2. Fall from standing, initial encounter Electronically signed by: Ramez Denney DO, 06/28/2025 10:09 PM Portions of this note were created utilizing Ztory dictation software. Although all attempts are made to clarify errors made by the software during dictation, errors do still occur. If there is any question about the content of this note and clarification is needed, please contact the author directly. Ramez Denney DO 06/28/252211 [facility]10-13-2025 Emergency department Triage note* Dianne Cornejo RN - 06/28/2025 6:43 PM EDT Pt arrives to the ER from [facility] via [facility] with a fall. Pt reports, he was trying to catch his from falling and when he went to catch her, he fell back. Pt is c/o left hip pain. Pt deniesany LOC or hitting his head. Pt was given fentanyl in route to the ER. Pt is A&OX4, skin warm and dry at this time. [facility]10-13-2025 Emergency department Note* Gabriela Sahni RN - 06/28/2025 6:42 PM EDT Bed: ER 22 Expected date: 06/28/25 Expected time: 6:38 PM Means of arrival: [facility] Comments: Ham 28 T [facility]09-24-2025 NotePlease let him know his ECHO showed normal pumping function. His aortic, mitral and tricuspid valves were mildly leaky . Just monitor at this time with a follow-up ECHO in 1-2 years or sooner if needed. Follow-up as planned. Thanks! [facility]09-10-2025 NoteCardiovascular Medicine [facility] SUBJECTIVE Chief Complaint Patient presents with Follow-up [...] Rate 07/05/2021 76 Atrial Rate 07/05/2021 76 PA Interval 07/05/2021 228 QRS DURATION 07/05/2021 84 QT Interval 07/05/2021 398 QTC CALCULATION(BAZETT) 07/05/2021 447 P Owings 07/05/2021 18 R-Owings 07/05/2021 -5 T Wave Owings 07/05/2021 -14 Diagnosis 07/05/2021 Value:Sinus rhythm with 1st degree A-V block with frequent Premature ventricular complexes in a pattern of bigeminy Nonspecific ST abnormality Abnormal ECG No previous ECGs available Confirmed by MD DEBORAH, EHAB ([id number]) on 07/06/2021 9:22:30 AM 01/22/25 [...] of the left circumflex coronary artery. 2. Qqkh-cl-jseojsih disease of the left anterior descending coronary [...] and ultimately a beta-lucy once the patient undergo (more content not included)...[facility]07-08-2025 History of Present illness Narrative* Sai Anderson MD - 03/23/2025 9:30 AM EDT Images from the original note were not included. Joo Allen is a 84 y.o. male presents with chief complaint of Annual Exam HPI: History of Present Illness I have reviewed and reconciled the history and medication list with the patient today. 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 [...] problem, stable, monitor longitudinally documented in [id number] History of Present illness Narrative* Sai Anderson MD - 01/28/2025 9:00 AM EDT Patient ID: Joo Allen is a 84 [...] Use of agents associated with hypertension: none. Historyof target organ damage: chronic kidney disease. Hyperlipidemia Pt who presents for follow-up of dyslipidemia. A repeat fasting lipid profile was done. The patientdoes not use medications that may worsen dyslipidemias [...] file prior to visit. 1. Essential hypertension ([facility]) Chronic problem, stable, to goal - lisinopril 40 MG tablet; Take 1 tablet (40 mg) by mouth Daily Dispense: 90 tablet; Refill: 1 - amLODIPine (Norvasc) 5 MG tablet; Take 1 tablet (5 mg) by mouth Daily Dispense: 90 tablet; Refill: 1 2. Mixed hyperlipidemia ([facility]) Reviewed labs with patient in essentially to goal. - atorvastatin (Lipitor) 40 MG tablet; Take 1 tablet (40 mg) by mouth Daily Dispense: 90 tablet; Refill: 1 3. Hypertensive nephropathy ([facility]) Chronic problem, stable, demonstrating end organ damage from their current state of health. I stressed the importance of keeping blood pressure and blood sugar to goal, staying well hydrated,avoiding NSAIDs, and aerobic exercises as tolerated. Continue to monitor longitudinally. 4. Stage 3a chronic kidney disease (HCC) ([facility]) Chronic problem that has surprisingly improved [...] the level of urine albumin. Normally, the kidneysfilter albumin, so if the kidney leaks small amounts of albumin into the urine then it is a indicator of chronic kidney disease. Microalbuminuria is an independent indicator of increased cardiovascular risk among individuals andtherefore can be used for risk stratification for [...] polypharmacy; 5 or more prescriptions or multi-morbidity definedas 5 or more diagnoses. Polypharmacy can significantly increase the risk of adverse drug events and negatively impact adherence. Consideration of factors such as clinician agreement, patient perspective, and de-prescribing,as appropriate can improve patient outcomes while simplifying care. This requires longitudinal monitoring as there is at least a moderate risk of morbidity and requires at least a moderate degree of evaluation and management. documented in this [facility]- [id number] History of Present illness Narrative* Sai Anderson MD - 08/03/2024 2:00 PM EST Images from the original note were not [...] has not lost weight. He/She denies melena, hem atochezia, hematemesis, and coffee ground emesis. Chronic Pain: [...] has appropriate, tests that were performed or orderedby another health nanny caregiver. These are documented in the electronic health record. These were reviewed with the patient. I stressed the importance of keeping blood pressure and blood sugar to goal, staying well hydrated,avoiding NSAIDs, and aerobic exercises as tolerated. Continue to monitor longitudinally. 3. Stage 3 chronic kidney disease Chronic problem, unstable, progressing, defining the end organ damage of the nephropathy. I stressed the importance of keeping blood pressure and blood sugar to goal, staying well hydrated,and aerobic exercises as tolerated. Continue to monitor longitudinally 4. Microalbuminuria Chronic problem, defining an aspect the nephropathy, with significant risk, uncertain progression requiring longitudinal monitoring, and moderate decision making. Microalbuminuria describes a moderate increase in the level of urine albumin. Normally, the kidneysfilter albumin, so if the kidney leaks small amounts of albumin into the urine then it is a indicator of chronic kidney disease. Microalbuminuria is an independent indicator of increased cardiovascular risk among individuals andtherefore can be used for risk stratification for [...] if any problems occur. (Utilizing the original 1994/1996 guidelines or the 2020 office/outpatient code guidelines [...] is only using it once daily and somedays he does not use it at all. [...] angina or anginal equivalents. [facility]* Diagnosis Essential hypertension (CMS/HCC)- Primary Unspecified essential [...] Coronary atherosclerosis of unspecified type of vessel, bois forte or graft documented in this encounter [facility]* Diagnosis Essential hypertension (CMS/HCC) Unspecified essential hypertension Mixed hyperlipidemia (CMS/HCC) Mixed hyperlipidemia Gastroesophageal reflux disease without esophagitis Esophageal reflux documented in [facility] encounter [facility]* Diagnosis Mixed hyperlipidemia (CMS/HCC) Mixed hyperlipidemia Essential hypertension (CMS/HCC) Unspecified essential hypertension documented in [facility]* Diagnosis Essential hypertension (CMS/HCC) Unspecified essential hypertension Mixed hyperlipidemia (CMS/HCC) Mixed hyperlipidemia Hypertensive nephropathy (CMS/HCC) Unspecified hypertensive kidney disease with chronic kidney disease stage I through stage IV, or unspecified Stage 2 chronic kidney disease Microalbuminuria Proteinuria Gastroesophageal reflux disease without esophagitis Esophageal reflux documented in this encounter [facility]* Diagnosis Encounter for Medicare annual wellness exam- Primary Advance directive in chart Encounter for screening for other disorder Screening for alcohol problem Screening for alcoholism Over weight Overweight Sick sinus syndrome (HCC) Sinoatrial node dysfunction Pulmonary hypertension (HCC) Other chronic pulmonary heart diseases Arthritis of carpometacarpal (CMC) joint of right thumb documented in this encounter [facility]* Diagnosis Closed left hip fracture, initial encounter ([facility])- Primary Fall from standing, initial encounter Intertrochanteric fracture, closed, left, initial encounter ([facility]) Hyponatremia Hyposmolality and/or hyponatremia Closed left hip fracture, initial encounter ([facility]) documented in this encounter [facility] Family History No Family History Records FoundNo Family History Records FoundNo Family History Records FoundNo Family History Records FoundNo Family History Records Found Advance Directives No Advanced Directives Records FoundDocuments on File TypeDate RecordedPatient RepresentativeExplanationAdvance Directives and Living [id number] poaAdvance Directives and Living Will Power of AttorneyDate ActivatedDate BeeagsjdffmMhffabvz45/13/2025 8:39 PMUnless other masterson ordered, all patients will be in this group in the event of a cardiopulmonary arrest. This order includes all of the following: CPR Mechanical Ventilation ICU care if necessary ACLS protocols Vassopressors All means of support judged appropriate by the physicianDate ActivatedDate AkuwcyroeccErzmkwxo02/13/2025 8:39 07/02/2025 6:37 PMUnless other masterson ordered, all patients will be in this group in the event of a cardiopulmonary arrest. This order includes all of the following: CPR Mechanical Ventilation ICU care if necessary ACLS protocols Vassopressors All means of support judged appropriate by the physician Additional Source Comments (unrecognized sect ion and content) No Status Records FoundNo Status Records FoundNo Status Records FoundNo Status Records FoundNo Status Records Found INFORMATION SOURCE (unrecogn ized section and content) DATE CREATED AUTHOR 07/11/2021 [facility] DATE CREATED AUTHOR AUTHOR'S ORGANIZ ATION 08/16/[address] [facility] DATE CREATED AUTHOR AUTHOR'S ORGANIZ ATION 06/11/2025 [facility] DATE CREATED AUTHOR AUTHOR'S ORGANIZ ATION 07/05/2025 [facility] DATE CREATED AUTHOR AUTHOR'S ORGANIZ ATION 07/09/2025 [facility] EPIC Care Teams (unrecognized sec tion and content) Team MemberRelationshipSpecialtyStart DateEnd Date Sai Anderson MD [address] [place] [address] (Fax) PCP - Devoted09/16/20 Sai Anderson MD [address] [address] (Fax) PCP - GeneralUniversity [facility] Clinicsly Medicine01/23/23Team MemberRelationshipSpecialtyStart DateEnd Date Sai Anderson MD [address] [place] [address] (Fax) PCP - Devoted09/16/20 Sai Anderson MD [address] [address] (Fax) PCP - GeneralFamily Medicine01/23/23Team MemberRelationshipSpecialtyStart DateEnd Date Sai Anderson MD [address] [place] [address] (Fax) PCP - Devoted09/16/20 Sai Anderson MD [address] [place] [address] (Fax) PCP - Generalmily Medicine01/23/23Team MemberRelationshipSpecialtyStart DateEnd Date Sai Anderson MD [address] [place] [phone] (Fax) PCP - Devoted09/16/20 Sai Anderson MD [address] [place] [address] (Fax) PCP - GeneralFamily Medicine01/23/23Team MemberRelationshipSpecialtyStart DateEnd Date Sai Anderson MD [address] [place] [address] (Fax) PCP - Devoted09/16/20 Sai Anderson MD [address] [place] [address] (Fax) PCP - GeneralFamily Medicine01/23/23Team MemberRelationshipSpecialtyStart DateEnd Date Sai Anderson MD [address] [place] [address] (Fax) PCP - Devoted09/16/20 Sai Anderson MD [address] [place] [address] (Fax) PCP - GeneralFamily Medicine01/23/23Team MemberRelationshipSpecialtyStart DateEnd Sai Anderson MD [address] [place] [address] (Fax) PCP - Devoted09/16/20 Sai Anderson MD [address] [place] [address] (Fax) PCP - GeneralFamily Medicine01/23/23Team MemberRelationshipSpecialtyStart DateEnd Date Sai Anderson MD [address] [place] [address] (Fax) PCP - Devoted09/16/20 Sai Anderson MD [address] [address] (Fax) PCP - GeneralFamily Medicine01/23/23Team MemberRelationshipSpecialtyStart DateEnd Date Sai Anderson MD [address] [address] (Fax) PCP - Devoted09/16/20 Sai Anderson MD [address] [address] (Fax) PCP - Generalmily Medicine01/23/23 Jr. Marcial Borrero DO [address] [phone] Referring PhysicianOrthopaedic Surgery03/23/25 Jesse Cabrera MD [facility] [address] [phone] Referring PhysicianCardiology03/23/25 Antonina Albrecht MD [address] [place] [address] Referring PhysicianDermatology03/23/25Team MemberRelationshipSpecialtyStart Date End Date Sai Anderson MD [address] [address] (Fax) PCP - Devoted09/16/20 Sai Anderson MD [address] [address] (Fax) PCP - GeneralFamily Medicine01/23/23 Jr. Marcial Borrero DO [address] [address] Referring PhysicianOrthopaedic Surgery03/23/25 Jesse Cabrera MD [address] [phone] Referring PhysicianCardiology03/23/25 Antonina Albrecht MD [address] [place] [address] Referring PhysicianDermatology03/23/25Team MemberRelationshipSpecialtyStart Date End Date Sai Anderson MD [address] [address] (Fax) PCP - Eyrmupo25/13/25Team MemberRelationshipSpecialtyStart DateEnd Date Sai Anderson MD [address] [address] (Fax) PCP - Drlgjxo69/13/25Team MemberRelationshipSpecialtyStart DateEnd Date Sai Anderson MD [address] [address] (Fax) PCP - Devoted09/16/20 Sai Anderson MD [address] [address] (Fax) PCP - GeneralFamily Medicine01/23/23 Jr. Marcial Borrero DO [address] [address] Referring PhysicianOrthopaedic Surgery03/23/25 Jesse Cabrera MD [address] [place] [address] Referring PhysicianCardiology03/23/25 Antonina Albrecht MD [address] [place] [address] Referring PhysicianDermatology03/23/25 Reason for Visit (unrecogniz ed section and content) ReasonCommentsHypertensionGERDHyperlipidemiaReasonCommentsMed RefillReason CommentsHypertensionHyperlipidemiaGERDReasonCommentsAnnual ExamReasonComments FallSpecialtyDiagnoses / ProceduresReferred By ContactReferred To Contact Diagnoses Closed left hip fracture, initial encounter ([facility]) Referral IDStatusReasonStart DateExpiration DateVisits RequestedVisits [id number] DateCommentsDischarge Follow-up Phone Call 07/05/2025 Scheduled Active and Recently Administ ered Medications (unrecognized section and content) Medication Order/ amLODIPine (NORVASC) tablet 2.5 mg 2.5 mg, Oral, DAILY, First dose (after last modification) on Sat07/02/25 at 0900, Until Discontinued * 0913 (Given - Provider: Nneka Wilson RN) amLODIPine (NORVASC) tablet 5 mg (CANCELED) 5 mg, Oral, DAILY, First dose on Sat06/29/25 at 0900, Until Discontinued * 0957 (Given - Provider: Dimitri Vasquez RN) * 1131 (Hold - Provider: Nneka Wilson RN - Reason: Abnormal Vital Signs) aspirin chewable tablet 81 mg 81 mg, Oral, DAILY, First dose on Sat06/29/25 at 0900, Until Discontinued * 0955 (Given - Provider: Dimitri Vasquez RN) * 1152 (Given - Provider: Nneka Wilson RN) * 0913 (Given - Provider: Nneka Wilson RN) atorvastatin (LIPITOR) tablet 40 mg 40 mg, Oral, DAILY, First dose on Sat06/29/25 at 0900, Until Discontinued * 0957 (Given - Provider: Dimitri Vasquez RN) * 1152 (Given - Provider: Nneka Wilson RN) * 0913 (Given - Provider: Nneka Wilson RN) ceFAZolin in dextrose (iso-os) (ANCEF) 2000 mg/ 100 mL IVPB (COMPLETED) 2,000 mg, Intravenous, Administer over 30 Minutes, EVERY 8 HOURS (3 times per day), First dose on Sat06/29/25 at 2100, Post-op * 0602 (New Bag - Provider: Bridget Rowley RN) * 0611 (Rate/Dose Verify - Provider: Bridget Rowley RN) * 0645 (Stopped/Completed - Provider: Bridget Rowley RN) * 1329 (New Bag - Provider: Dimitri Vasquez RN) * 1441 (Stopped/Completed - Provider: Dimitri Vasquez RN) enoxaparin (LOVENOX) injection 40 mg 40 mg, Subcutaneous, DAILY AT 0800, First dose on Sat06/30/25 at 0800, Until Discontinued * 0957 (Given - Provider: Dimitri Vasquez RN) * 1152 (Given - Provider: Nneka Wilson RN) * 0912 (Given - Provider: Nneka Wilson, SERAFIN) lisinopriL (PRINIVIL) tablet 10 mg 10 mg, Oral, DAILY, First dose (after last modification) on Sat07/02/25 at 0900, Until Discontinued * 0913 (Given - Provider: Nneka Wilson, SERAFIN) lisinopriL (ZESTRIL) tablet 40 mg (CANCELED) 40 mg, Oral, DAILY, First dose on Sat06/29/25 at 0900, Until Discontinued * 0955 (Given - Provider: Dimitri Vasquez, SERAFIN) * 1132 (Hold - Provider: Nneka Wilson RN - Reason: Abnormal Vital Signs) magnesium oxide (MAG-OX) tablet 200 mg 200 mg, Oral, DAILY, First dose on Sat06/29/25 at 0900, Until Discontinued * 0956 (Given - Provider: Dimitri Vasquez RN) * 1152 (Given - Provider: Nneka Wilson, SERAFIN) * 0913 (Given - Provider: Nneka Wilson, SERAFIN) pantoprazole (PROTONIX) injection 40 mg 40 mg, Intravenous, DAILY AT 0600, First dose on Sat06/28/25 at 2115, Until Discontinued * 0555 (Given - Provider: Bridget Rowley RN) * 0517 (Given - Provider: Devaughn Torres, SERAFIN) * 0629 (Given - Provider: Devaughn Torres, SERAFIN) polyethylene glycol (MIRALAX) packet 34 g 34 g, Oral, TWO TIMES DAILY, First dose on Sat07/01/25 at 1800, Until Discontinued * 1728 (Given - Provider: Nneka Wilson, SERAFIN) * 0912 (Given - Provider: Nneka Wilson, SERAFIN) * 2100 (Due) Medication Order/ 0.9 % sodium chloride infusion (CANCELED) 75 mL/hr, Intravenous, CONTINUOUS, Starting on Sat06/28/25 at 2115 * 0209 (Rate/Dose Verify - Provider: Bridget Rowley RN) * 0305 (New Bag - Provider: Bridget Rowley, SERAFIN) * 0540 (Rate/Dose Verify - Provider: Bridget Rowley, SERAFIN) * 1326 (Stopped/Completed - Provider: Dimitri Vasquez RN - Comment: [Order ends at this time.Document the following action when infusion is complete: Stopped/Completed]) Medication Order/ 0.9 % sodium chloride irrigation solution CONTINUOUS PRN, Starting on Sat06/29/25 at 1426, Intra-op * 0209 (Rate/Dose Verify - Provider: Bridget Rowley RN) * 1540 (Stopped/Completed - Provider: Dimitri Vasquez, SERAFIN) acetaminophen (TYLENOL) tablet 650 mg 650 mg, Oral, EVERY 4 HOURS PRN, Starting on Sat06/28/25 at 2033, Until Discontinued, Mild pain (score 1-3) * 1326 (Given - Provider: Dimitri Vasquez, SERAFIN) * 1728 (Given - Provider: Dimitri Vasquez, SERAFIN) docusate (COLACE) capsule 100 mg 100 mg, Oral, TWO TIMES DAILY PRN, Starting on Sat06/28/25 at 2033, Until Discontinued, Constipation * 0957 (Given - Provider: Dimitri Vasquez, SERAFIN) * 1647 (Given - Provider: Nneka Wilson, SERAFIN) melatonin tablet 3 mg 3 mg, Oral, NIGHTLY AT BEDTIME PRN, Starting on Sat06/28/25 at 2033, Until Discontinued, insomnia ondansetron (ZOFRAN) injection 4 mg(Linked Group 1) 4 mg, Intravenous, EVERY 4 HOURS PRN, Starting on Sat06/28/25 at 2033, Until Discontinued, Nausea,Vomiting, if unable to tolerate orally ondansetron (ZOFRAN-ODT) disintegrating tablet 4 mg(Linked Group 1) 4 mg, Oral, EVERY 4 HOURS PRN, Starting on Sat06/28/25 at 2033, Until Discontinued, Nausea, Vomiting oxyCODONE-acetaminophen (PERCOCET) 5-325 mg per tablet 1 tablet 1 tablet, Oral, EVERY 4 HOURS PRN, Starting on Sat06/29/25 at 2341, Until Sat07/09/25 at 2340, Moderate pain (score 4-6) * 0555 (Given - Provider: Bridget Rowley RN) * 0004 (Given - Provider: Devaughn Torres, SERAFIN) * 1827 (Given - Provider: Nneka Wilson, SERAFIN) * 0337 (Given - Provider: Devaughn Torres, SERAFIN) * 1430 (Given - Provider: Nneka Wilson, SERAFIN) oxyCODONE-acetaminophen (PERCOCET) 5-325 mg per tablet 2 tablet 2 tablet, Oral, EVERY 4 HOURS PRN, Starting on Sat06/29/25 at 2343, Until Sat07/09/25 at 2342, Severe pain (score 7-10) Medication Order06/30/// ROPivacaine (PF) (NAROPIN) 5 mg/mL (0.5 %) injection 1 dose, Starting on Sat06/28/25 at 2053 Order Group 1: ondansetron (ZOFRAN) injection 4 mgJump to med 4 mg, Intravenous, EVERY 4 HOURS PRN, Starting on Sat06/28/25 at 2033, Until Discontinued, Nausea,Vomiting, if unable to tolerate orally Or ondansetron (ZOFRAN-ODT) disintegrating tablet 4 mgJump to med 4 mg, Oral, EVERY 4 HOURS PRN, Starting on Sat06/28/25 at 2033, Until Discontinued, Nausea, Vomiting FOR RECORDS PERTAINING TO PATIENTS WHO ARE [...] BE BASED ON THE PRIMARY CLINICAL RECORDS. [employer] [facility]. provides no warranty or guarantee of the accuracy or completeness of information in this document.
--- OUTSIDE RECORDS SUMMARY | 2025-07-09 12:55 | XMS_ITS | Clinical Summary ---
Author Organization [facility] Address [address] [place] [address] Care Team Providers Care Sketch Maker Name Role Phone Sai Anderson MD Unavailable [phone] Sai Anderson MD Primary Care Provider [phone] Jr. Marcial Borrero DO Unavailable [phone] Jesse Cabrera MD Unavailable [phone] Antonina Albrecht MD Unavailable Allergies No known active allergies Medications MedicationSigDispense QuantityRefillsLast FilledStart DateEnd DateStatus Potassium Gluconate 2.5 MEQ tablet Take 1 tablet by mouth 1 (one) time each day.Active magnesium oxide (Mag-Ox) 400 MG tablet Take 400 mg by mouth in the morning.Active atorvastatin (Lipitor) 40 MG tablet Indications:Mixed hyperlipidemiaTake 1 tablet (40 mg) by mouth Daily 90 tablet 5Active omeprazole (PriLOSEC) [address] capsule Indications:Gastroesophageal reflux disease without esophagitisTake 1 capsule (20 mg) by mouth in the morning. Take before meals. Do not crush or chew. 90 capsule 5Active nabumetone (Relafen) 750 MG tablet Indications:Arthritis of carpometacarpal (CMC) joint of right thumbTAKE 2 TABLETS BY MOUTH EVERY DAY 180 tablet 5Active Additional Information Patient not taking.Reported on 07/07/2025 methocarbamol (Robaxin) 500 MG tablet Take 500 mg by mouth every 8 (eight) hours if needed for muscle lxcwiv315Active ferrous sulfate 325 (65 Fe) MG tablet Take 325 mg by mouth in the morning.5Active polyethylene glycol, PEG, 3350 (Miralax) 17 g packet Take 34 g by mouth 1 (one) time5Active amLODIPine (Norvasc) 5 MG tablet Take 0.5 tablets by mouth Daily Take 0.5 tab. Hold if SBP <110.Active lisinopril 20 MG tablet Take 20 mg by mouth Daily Hold if SBP <110Active aspirin 325 MG tablet Take 325 mg by mouth in the morning and 325 mg before bedtime.07/02/2025 5Active oxyCODONE-acetaminophen (Percocet) 5-325 MG tablet Indications:Closed fracture of left hip with routine healing,Postoperative pain Take 1 tablet by mouth every 4 (four) hours if needed for moderate pain 15 tablet tive aspirin 81 MG EC tablet 81 mg in the morning.07/05/2025Discontinued(Dose adjustment) lisinopril 40 MG tablet Indications:Essential hypertensionTake 1 tablet (40 mg) by mouth Daily 90 tablet Discontinued(Dose adjustment) amLODIPine (Norvasc) 5 MG tablet Indications:Essential hypertensionTake 1 tablet (5 mg) by mouth Daily 90 tablet Discontinued(Dose adjustment) oxyCODONE-acetaminophen (Percocet) 5-325 MG tablet Take 1 tablet by mouth every 4 (four) hours if tmnmye26 Discontinued(Reorder) Active Problems ProblemNoted DateDiagnosed DateClosed fracture of left hip with routine healing 06/28/2025Mixed tcidxidyqfnlkv81/09/2023 Overview (07/11/2023): Last Assessment & Plan: Continue lipitor Arthritis of carpometacarpal (CMC) joint of right thumb02/26/2023ependence on other enabling machines and uujurmx2202/26/2023Essential lwbxrwpsktux43/13/2023 Essential /13/2023First degree AV block02/26/2023astroesophageal reflux disease without /13/2023Hypertensive fekzqoemohe91/13/2023 Wdwffhzlyxbzwlod91/13/2023Nodular prostate without lower urinary tract symptoms 02/26/2023Nonrheumatic aortic valve fixbnisfydqhl13/13/2023Nonrheumatic mitral valve fsyqegoxciirl71/13/2023Obstructive sleep apnea (adult) (pediatric) 02/26/2023Other abqjgdfx00/13/2023Over kdybgq2502/26/2023olyp of colon02/26/2023 Pulmonary eqlwlscwylvu50/13/2023Sick sinus /13/2023Stage 2 chronic kidney cfahjbb0302/26/2023oronary /06/2021VC (premature ventricular contraction)08/21/2021enal artery ceqmbbyb65/11/2021 Resolved Problems ProblemNoted DateDiagnosed DateResolved DateElevated fasting blood sugar /Nocturnal leg /11/2023Sinus bradycardia /4608Stbzbnurdil82/11/202106/11/2023 Encounters DateTypeDepartmentCare DkpxXoulxhcitep47/23/2025Telephone [facility] [place] [address] [address] Sai Anderson MD Care Rzqjgkozrctd37/23/2025Patient Outreach [facility] [address] [place] [address] Andreea Sousa LSW 07/08/2025Telephone [facility] [place] [address] [address] Acacia Romero MA 07/07/2025 4:00 PM EDTOffice Visit [facility] [address] [address] Sai Anderson MD Encounter for examination following treatment at hospital; Post-operative state; Closed displaced intertrochanteric fracture of left femur, sequela; Closed fracture of left hip, sequela; Fall from standing, sequela; Over nmbzap4107/07/2025amboo flowsheet [facility] [place] [facility] [address] [facility] [address] [place] [address] Sai Anderson MD 07/07/20250988Juwcro59/21/2025Patient Outreach [facility] [address] [place] [address] Andreea Sousa LSW 07/06/2025Patient Outreach [facility] [address] [place] [address] Emma Woodard LPN 07/05/2025Telephone [facility] [place] [facility] [address] [facility] [address] [place] [address] Heather December, Care Uchrqvzdvtyb37/20/2025Patient Outreach [facility] [address] [place] [address] Emma Woodard, CITY CLERK 07/05/2025Telephone [facility] [place] [facility] 112 [facility] [address] [place] [address] Heather December, Dgfffjmz23/15/2025Telephone [facility] [place] [facility] 112 [facility] [address] [place] [address] Heather December, Care Kforyrwsfrcn84/14/2025Telephone [facility] [place] [facility] 112 [facility] [address] [place] [address] Heather December, Care Cmgrrnlvksqa55/17/2025linisync Result Encounter [facility] External Department Unsolicited Provider, Generic External Data 05/13/2025Orders Only [facility] [place] [facility] 112 [facility] [address] [place] [address] Heather December, Arthritis of carpometacarpal (CMC) joint of right thumb05/03/2025Refill [facility] [place] [facility] 112 [facility] [address] [place] [address] Sai Anderson MD Mixed hyperlipidemia ; Essential hypertensionfrom Last 3 Months Immunizations ImmunizationAdministration DatesNext EkjSSkC65/29/2017Influenza, Seasonal, Quadrivalent, Pxmequzdbd51/19/2021Influenza, injectable, quadrivalent, preservative free07/11/2022Moderna SARS-CoV-2 Ezplqvfkofd46/30/2022 Family History Medical HistoryRelationNameCommentsNo Known ProblemsBrotherNo Known Problems DaughterCancerMotherHeart diseaseMotherRelationNameStatusCommentsBrother2 brothersDaughter4 daughtersFatherDeceasedMotherDeceased Social History Tobacco UseTypesPacks/DayYears UsedDateSmoking Tobacco: NeverSmokeless Tobacco: Never Tobacco Cessation:Counseling Given: Yes Alcohol UseStandard Drinks/BwzgUwdtaaowNot65 (1 standard drink = 0.6 oz pure alcohol)PHQ-2AnswerDate RecordedPatient Health Questionnaire-2 Qxykm576 Sex and Gender InformationValueDate RecordedSex Assigned at BirthNot on file Legal TpjOhnq3311/28/2022 8:13 PM EDTGender IdentityNot on fileSexual Orientation Not on file Last Filed Vital Signs Vital SignReadingTime TakenCommentsBlood Pkitfycm368/76003/23/2025 10:24 AM EDT Wanra401803/23/2025 10:24 AM EDTTemperature--Respiratory Rate--Oxygen Saturation 98%03/23/2025 10:24 AM EDTInhaled Oxygen Concentration--Zmefvn59.9 kg (163 lb) 03/23/2025 10:24 AM YIWHpbcul404.6 cm (5' 6 )03/23/2025 10:24 AM EDTBody Mass Index26.3107 10:24 AM EDT Plan of Treatment DateTypeDepartmentCare Team (Latest Contact Info)Mlpaplxochq46/11/2025 10:00 AM ESTOffice Visit [facility] 112 [facility] [address] [place] [address] Sai Anderson MD 112 [facility] 100 [place] [address] Health MaintenanceDue DateLast DoneCommentsMedicare Annual Wellness (AWV) 6003/23/2025, 02/17/2024, 11/29/2022, Additional history existsInfluenza GyqvebkQuegmptrwbrt91/26/2022, 1Pneumococcal Vaccine: 65+ Years Discontinued Procedures Procedure NamePriorityDate/TimeAssociated DiagnosisCommentsCA ECHO DOPPLER TLXJYSEN50/17/2025 12:38 PM EDT from Last 3 Months Results * CA ECHO DOPPLER COMPLETE (06/02/2025 12:38 PM EDT)Anatomical RegionLaterality ModalityOtherSpecimen (Source)Anatomical Location / LateralityCollection Method / VolumeCollection TimeReceived Time06/02/2025 12:38 PM EDT Narrative 06/02/2025 12:39 PM EDT [facility] ?[address] ? [place] [address] ? Cardiology Report ? Signed ? Patient: JOO DURAN A ?MR#: [id number] ?? : 1940 ?Acct:[id number] ?? Age/Sex: 84 / M ?ADM Date: 06/02/25 ?? Loc: CARD ? Attending Dr: VALERIA STOKES APRN ? Ordering Physician: VALERIA STOKES APRN ?? Date of Service: 06/02/25 ?? Procedure(s): CA echo doppler complete ?? Accession Number(s): [id number] ? cc: SAI ANDERSON ; VALERIA STOKES APRN ? Patient Name: ? JOO DURAN ? MR#: [id number] ? : 1940 ? Exam Date: 06/02/2025 ?? Ordering Doctor: VALERIA STOKES CNP ? ECHOCARDIOGRAM REPORT ? PROCEDURE: ? CA ECHO DOPPLER COMPLETE ? INDICATIONS: ? Tricuspid valve regurgitation, hypertension ? COMPARISON: ? None. ? DESCRIPTION: ? COMPLETE ECHOCARDIOGRAM Real-time transthoracic ?? echocardiography with 2D, M-mode, spectral and color flow Doppler performed. ? QUALITY: ? Technical quality was good. ? LEFT VENTRICLE: ? Normal chamber size. Mild left ventricular hypertrophy. ? LV EF: ? Global left ventricular systolic function is normal; visually ?? estimated ejection fraction is 60-65%. ??No wall motion abnormalities. ?? DIASTOLIC: ? Normal diastolic function. ?? ATRIAL SEPTUM: ? Visually appears intact. ?? LEFT ATRIUM: ? Moderate dilatation. ?? RIGHT ATRIUM: ? Moderate dilatation. ?? RIGHT VENTRICLE: ? Mild dilatation. ??Normal systolic function. ? TRICUSPID VALVE: ? Normal mobility and thickness. No stenosis with mild ?? regurgitation. No evidence of pulmonary hypertension. RVSP 27 mmHg ? MITRAL VALVE: ? Normal mobility and thickness. ?? No evidence of mitral valve ?? stenosis. ??There is no mitral annular calcification. Mild mitral ?? regurgitation. ? AORTIC VALVE: ? Normal trileaflet appearance. Moderately calcified aortic ?? valve. ??Mildly diminished mobility. ??No evidence of aortic valve stenosis. DVI ?? 0.6. Mild aortic regurgitation. ? AORTIC ROOT: ? Normal diameter and appearance. Ascending aorta and aortic ?? arch are normal in size. ? PULMONIC VALVE: ? Normal thickness and mobility. No stenosis. ? PERICARDIUM: ? No evidence of pericardial effusion. ? IVC: ? Collapses with inspiration. ? CONCLUSION: ? 1. Global left ventricular systolic function is normal; visually estimated ?? ejection fraction is 60-65% ?? 2. The right ventricle is mildly dilated with normal systolic function ?? 3. Normal diastolic function ?? 4. Mild left ventricular hypertrophy ?? 5. Biatrial dilatation ?? 6. Mild tricuspid regurgitation ?? 7. Mild mitral regurgitation ?? 8. Mild aortic valve regurgitation ? Adult Echocardiography Procedure Report ?? Left Ventricle ?? LVEDD (3.7 - 5.6 cm): ? 5.48 cm ?? LVESD (2.2 - 4.0 cm): ? 2.90 cm ?? LVIVS thickness (0.6 - 1.2 cm): ? 1.10 cm ?? LVPW thickness (0.5 - 1.0 cm): ? 1.18 cm ?? e': ? 0.11 m/s ?? E - e': ? 5.94 ?? LVOT Max Gradient: ? 4.65 mm60- ?? LVOT Area (cm2): ? 1.08 m/s ?? Peak Velocity (LVOT): ? 1.08 m/s ?? Mean Velocity (LVOT): ? 0.73 m/s ?? LVOT Diameter ? 2.25 cm ?? Left Ventricular Ejection Fraction: ? 65.82 % ?? Left Atrium ?? LA Volume Index (2D A2C): ? 46.50 ml/m2 ?? Left Atrium Systolic Dimension: ? 4.41 cm ?? Mitral Valve ?? MV E to A Ratio: ? 1.03 ?? Mitral Valve A-Wave Peak Velocity: ? 0.61 m/s ?? Mitral Valve E-Wave Peak Velocity: ? 0.63 m/s ?? Right Ventricle ?? Aorta ?? AO Root Diam: ? 3.43 cm ?? Ascending Ao Diam: ? 3.32 cm ?? Aortic Valve ?? AoV Area (Peak Vernon): ? 2.28 cm2, 2.28 cm2 ?? AoV Area (VTI): ? 2.47 cm2, 2.54 cm2 ?? Deceleration Vermillion: ? 3.57 m/s2, 2.15 m/s2 ?? Pressure Half-Time: ? 379.59 ms, 492.46 ms ?? Peak Velocity(Antegrade Flow): ? 1.87 m/s, 1.59 m/s, 1.64 m/s ?? Peak Gradient(Antegrade Flow): ? 14.02 mm[Hg], 10.09 mm[Hg], 10.74 mm[Hg] ?? Mean Velocity(Antegrade Flow): ? 1.21 m/s, 1.17 m/s, 1.12 m/s ?? Mean Gradient(Antegrade Flow): ? 6.91 mm[Hg], 6.05 mm[Hg], 5.75 mm[Hg] ?? Velocity Time Integral: ? 38.66 cm, 39.70 cm, 35.29 cm ?? Tricuspid Valve ?? Peak Velocity (Regurgitant Flow): ? 2.47 m/s ?? Pulmonic Valve ?? Peak Gradient: ? 2.82 mm[Hg], 4.20 mm[Hg] ?? Right Atrium ?? Right Atrium Systolic Pressure: ? 94.47 ml, 94.47 ml ? Dictated by: Jesse Cabrera M.D. on 06/02/2025 at 12:34 ? Approved by: Jesse Cabrera M.D. on 06/02/2025 at 12:38 ? Dictated By: ?Jesse Cabrera M.D. ? Signed By: ?06/02/259 ? DD/ 1238 ? TD/TT: ? Mobility Scooter Repairer: Procedure Note Radiology, Radiologist, MD - 06/02/2025 [place] [address] Cardiology Report Signed Patient: JOO DURAN AMR#: [id number] : 1940Acct:[id number] Age/Sex: 84 / MADM Date: 06/02/25 Loc: CARD Attending Dr: VALERIA STOKES APRN Ordering Physician: VALERIA STOKES APRN Date of Service: 06/02/25 Procedure(s): CA echo doppler complete Accession Number(s): [id number] cc: SAI ANDERSON ; VALERIA STOKES APRN Patient Name: JOO DURAN MR#: [id number] : 1940 Exam Date: 06/02/2025 Ordering Doctor: VALERIA STOKES CNP ECHOCARDIOGRAM REPORT PROCEDURE: CA ECHO DOPPLER COMPLETE INDICATIONS: Tricuspid valve regurgitation, hypertension COMPARISON: None. DESCRIPTION: COMPLETE ECHOCARDIOGRAM Real-time transthoracic echocardiography with 2D, M-mode, spectral and color flow Dopplerperformed. QUALITY: Technical quality was good. LEFT VENTRICLE: Normal chamber size. Mild left ventricularhypertrophy. LV EF: Global left ventricular systolic function [...] Normal mobility and thickness. No evidence of mitralvalve stenosis. There is no mitral annular calcification. Mild mitral regurgitation. AORTIC VALVE: Normal trileaflet appearance. Moderately calcifiedaortic valve. Mildly diminished mobility. No evidence of aortic valve stenosis.DVI 0.6. Mild aortic regurgitation. AORTIC ROOT: Normal diameter and appearance. Ascending aorta andaortic arch are normal in size. PULMONIC VALVE: [...] Area (VTI): 2.47 cm2, 2.54 cm2 Deceleration Vermillion: 3.57 m/s2, 2.15 m/s2 Pressure Half-Time: 379.59 ms, 492.46 ms Peak Velocity(Antegrade Flow): 1.87 m/s, 1.59 m/s, 1.64 m/s Peak Gradient(Antegrade Flow): 14.02 mm[Hg], 10.09 mm[Hg], 10.74mm[Hg] Mean Velocity(Antegrade Flow): 1.21 m/s, 1.17 m/s, [...] 12:38 Dictated By: Jesse Cabrera M.D. Signed By:06/02/25 1239 DD/ 1238 TD/TT: Mobility Scooter Repairer: Authorizing ProviderResult TypeResult StatusGeneric External Data Provider CLINISYNC IMAGINGFinal Result from Last 3 Months Insurance Advance Directives TypeDate RecordedPatient RepresentativeExplanationAdvance Directives and Living Will1/27/10338321-20-46 poaAdvance Directives and Living Will Power of Service Engine Repairer Care Teams Team MemberRelationshipSpecialtyStart DateEnd Date Sai Anderson MD [address] [address] PCP - Devoted09/16/20 Sai Anderson MD [address] [address] PCP - GeneralFamily Medicine01/23/23 Jr. Marcial Borrero DO [address] [address] Referring PhysicianOrthopaedic Surgery03/23/25 Jesse Cabrera MD [address] [place] [id number] Referring PhysicianCardiology03/23/25 Antonina Albrecht MD [address] [place] [address] Referring PhysicianDermatology03/23/25
--- OUTSIDE RECORDS SUMMARY | 2025-07-09 12:55 | XMS_ITS ---
Author Organization [facility] Address [address] [place] [address] Care Team Providers Care Systems Development Consultant Name Role Phone Sai Landrum MD Unavailable [phone] Sai Landrum MD Primary Care Provider [phone] Jr. Marcial Borrero DO Unavailable [phone] Jesse Cabrera MD Unavailable [phone] Antonina Albrecht MD Unavailable 30 Day Monitoring Program Status:Enrolled (Active) Start date:07/05/2025 Enrollment date:07/05/2025 Enrollment reason:Identified from transitional care managment NameNati ALLRED(Responsible Staff)Medical Information Specialist [phone] Continued Care and Services Coordination
--- NOTE | 2025-07-09 13:01 | CT_ITS ---
[address] [address] Patient Name: JOO ALLEN MRN: [id number] date: 1940 Sex: M Assigned Patient Location: ED.MAIN Current Patient Location: ED.MAIN Accession/Order Number: [id number] Exam Date: 07/09/2025 13:42 Report Date: 07/09/2025 16:13 At the request of: JOO MEDINA Procedure: CT lumbar spine wo con CT lumbar spine wo con 07/09/2025 1:46 PM History:Left-sided flank TECHNIQUE: Multi detector CT axial slices of the lumbar spine were obtained without IV contrast. Volumetric acquisition sagittal, coronal, and 3-D reconstructions were performed and reviewed on a separate workstation. CT was performed with one or more of the following dose reduction techniques: Automated exposure control, adjustment of the mA and/or kV according to patient size, or use of iterative reconstruction technique. COMPARISON: None FINDINGS: Lumbar vertebral heights are maintained. 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 Otherwise moderate multilevel disc space narrowing and multilevel vacuum disc phenomenon identified elsewhere. Multilevel facet arthropathy. No evidence acute fracture or malalignment. There is dextrocurvature mid lumbar spine and minimal levocurvature lower lumbar spine. L1-2: Broad-based disc bulge with ligamentum flavum and facet arthropathy causing moderate severe central canal and right neural foraminal narrowing. Moderate left foraminal narrowing. L2-3: Ankylosis. Diffuse ossific bridging and spurring causing fhfa-fm-znwbpcxb right moderate left neural from narrowing. Moderate central canal stenosis. L3-4: Broad-based disc osteophyte complex with ligamentum flavum and facet arthropathy causing severe canal and severe subarticular recess narrowing and moderate severe neural from narrowing. L4-5: Circumferential disc osteophyte complex with facet arthropathy causing severe central canal severe right and moderate severe left neural foraminal narrowing. L5-S1: Interbody ankylosis with diffuse ossific bridging and spurring. Suspect right hemilaminectomy defect. Bilateral facet arthropathy causing bilateral subarticular recess narrowing. There is moderate neural from narrowing. Canal is patent. CT/CT lumbar spine wo con IMPRESSION: Multilevel degenerative change without evidence acute fracture malalignment. Severe central canal stenosis L3-L5 otherwise multilevel neural foraminal encroachment as noted above. No acute bony abnormality or malalignment. Impression dictated by: Jean-Pierre Strong M.D. 07/09/2025 4:13 PM Dictation Location: [place] [address] Electronically authenticated by: [id number] Y Date: 07/09/2025 16:13
--- NOTE | 2025-07-09 13:01 | CT_ITS ---
[address] [address] Patient Name: JOO ALLEN MRN: [id number] date: 1940 Sex: M Assigned Patient Location: ER Current Patient Location: [facility] Accession/Order Number: [id number] Exam Date: 07/09/2025 13:42 Report Date: 07/09/2025 16:03 At the request of: JOO MEDINA Procedure: CT abdomen pelvis wo con CT ABDOMEN AND PELVIS WITHOUT INTRAVENOUS CONTRAST: CLINICAL HISTORY: left flank/back pain COMPARISON: None TECHNIQUE: Spiral images were obtained through the abdomen and pelvis without intravenous contrast. This CT exam was performed using one or more following dose reduction techniques: Automated exposure control, adjustment of the mA and/or kV according to patient size, or use of iterative reconstruction technique. FINDINGS: Lung Bases: [Trace right-sided effusion. Minor hypoventilatory changes. Cardiomegaly. Trace pericardial effusion. Coronary disease.] Organs:Gallstones versus sludge within the gallbladder. Otherwise the liver, spleen, adrenals, pancreas unremarkable. Bilateral renal cysts. Negative for hydronephrosis. Negative for nephrolithiasis.[ GI: Moderate size retrocardiac hiatal hernia. Cmca-fu-mahijeer stool elsewhere. Moderate colonic diverticulosis greatest involving sigmoid colon. Appendix unremarkable.[ Pelvis:[Bladder wall thickening images with muscular hypertrophy versus cystitis.. Prostate grossly unremarkable.] Peritoneum/Retroperitoneum:No free air or free fluid. Moderate plaque identified throughout the nonaneurysmal aorta.[ Abd wall/Bones:Multilevel degenerative changes of the lumbar spine.[Left hip intramedullary gen and compression screw. Evidence of fracture through the hip noted. This overlying soft tissue hematoma left lateral thigh. CT/CT abdomen pelvis wo con IMPRESSION: Left hip soft tissue swelling may recent postsurgical changes versus soft tissue contusion evidence of left hip intramedullary gen and screw with evidence of a left proximal femur fracture, correlate with any prior postoperative imaging recommended. Otherwise colonic diverticulosis. No definite acute inflammatory process or bowel obstruction. Suspected gallstones or sludge. Moderate hiatal hernia. Impression dictated by: Jean-Pierre Strong M.D. 07/09/2025 4:03 PM Dictation Location: [place] [address] Electronically authenticated by: [id number] Y Date: 07/09/2025 16:03
--- NOTE | 2025-07-09 13:04 | ED.GENADUL1 ---
HPI HPI - General Adult General Chief complaint: Back Pain/Injury Stated complaint: BACK PAIN, L HIP PAIN Time Seen by Provider: 07/09/25 12:48 Source: patient Mode of arrival: ambulance History of Present Illness HPI narrative: Patient presented to the emergency department with complaints of lower back pain to the midline of the back and towards the left flank region. Patient states that he had a hip surgery 2 weeks ago and has been doing well however today he woke up with severe pain that did not improve with pain medicine. He denies any falls or blunt trauma to the area. Patient does state similar episodes in the past with his back but has been several years since his last episode. Patient denies any hematuria or dysuria. No abdominal pain, nausea or vomiting. On emergency department arrival patient had improvement of symptoms and rates the pain at a 2 out of 10. He denies any saddle paresthesia or loss of bowel or bladder control Location: Reports back Radiation: Reports flank Severity: moderate Quality: Reports sharp Pain Consistency: Reports now resolved (near resolution) Relieving factors: Reports rest Exacerbating factors: Reports movement Associated symptoms: Reports denies other symptoms Related Data Previous Rx's ?Medication ?Instructions ?Recorded prednisone 50 mg tablet 50 mg PO DAILY 3 days #3 tabs 07/09/25 Allergies Allergy/AdvReac Type Severity Reaction Status Date / Time No Known Drug Allergies Allergy Verified 07/09/25 12:53 Opioid HPI Opioid Management Most Recent Opioid Data: Last Pain Scale 2 Today, 13:37 Review of Systems ROS Status of ROS 10 or more systems reviewed and unremarkable except as noted in history and below Constitutional Denies: fever or chills Cardiovascular Denies: chest pain Respiratory Denies: shortness of breath or cough Gastrointestinal Denies: abdominal pain or vomiting Genitourinary Denies: painful urination or difficulty starting urination Musculoskeletal Reports: back pain; Denies: joint swelling Integumentary/Breast Denies: rash Neurological Denies: numbness in extremities or weakness in extremities PFSH PFSH Social History Little interest or pleasure in doing things: not at all Feeling down, depressed, or hopeless: not at all Exam Constitutional Vital Signs, click to edit/add: Last Vital Signs Temp 98.5 F 07/09/25 12:49 Pulse 75 07/09/25 15:55 Resp 15 07/09/25 15:55 BP 162/75 H 07/09/25 15:55 Pulse Ox 97 07/09/25 15:55 O2 Del Method Room Air 07/09/25 15:55 Documenting provider has reviewed patient's vital signs: yes Common normals: no apparent distress General appearance: cooperative Neck & C-Spine Common normals: full ROM Chest Common normals: inspection of chest normal Respiratory Common normals: normal respiratory effort Cardio Common normals: regular rate GI Common normals: Normal to inspection, nondistended, normoactive bowel sounds present Back & Pelvis Lumbar spine/lower back: lumbar spinal tenderness and paraspinal muscle tenderness Pelvis: buttocks normal Course Vital Signs Vital signs: Vital Signs Temperature 98.5 F 07/09/25 12:49 Pulse Rate 87 07/09/25 12:49 Respiratory Rate 20 07/09/25 12:49 Blood Pressure 164/75 H 07/09/25 12:49 Pulse Oximetry 99 07/09/25 12:49 Oxygen Delivery Method Room Air 07/09/25 12:49 Temperature 98.5 F 07/09/25 12:49 Pulse Rate 75 07/09/25 15:55 Respiratory Rate 15 07/09/25 15:55 Blood Pressure 162/75 H 07/09/25 15:55 Pulse Oximetry 97 07/09/25 15:55 Oxygen Delivery Method Room Air 07/09/25 15:55 Medical Decision Making MDM Narrative Medical decision making narrative: Patient presented to the emergency department with lower back pain that began upon awakening this morning. Patient did correlate history of similar episodes in the past that has been several years. Patient had no saddle paresthesia or loss of bowel or bladder control to suggest cauda equina syndrome. Given the pain to the paraspinal region as well as flank a CT lumbar spine and CT abdomen pelvis was obtained that shows no concerning abnormalities. Laboratory testing unremarkable with no signs of urinary tract infection. Patient had resolution of symptoms after Solu-Medrol and Toradol. He will be discharged home with short course of steroids and close PCP follow-up Differential Diagnosis Differential Diagnosis: Lumbar strain, lumbar ago, fracture, subluxation, kidney stone, pyelo Medical Records Medical records reviewed: Yes I reviewed the patient's medical records Lab Data Lab results reviewed: Yes I reviewed the patient's lab results Lab results narrative: Laboratory testing reveals an anemia and very mild hyponatremia normal creatinine Labs: Lab Results 07/09/25 07/09/25 Range/Units 13:20 14:24 WBC 8.0 (4.0-11.0) 10^3/uL RBC 2.47 L (4.70-6.10) 10^6/uL Hgb 8.3 L (14.0-18.0) g/dL Hct 24.4 L (42.0-54.0) % MCV 98.8 H (80.0-94.0) fL MCH 33.6 (25.9-34.0) pg MCHC 34.0 (29.9-35.2) g/dL RDW 12.8 (11.0-15.0) % Plt Count 512 H (150-450) 10^3/uL MPV 8.9 L (9.5-13.5) fL Neut % (Auto) 71.1 (43.0-75.0) % Lymph % (Auto) 12.2 L (20.5-60.0) % Apache % (Auto) 10.6 (1.7-12.0) % Eos % (Auto) 4.0 (0.9-7.0) % Baso % (Auto) 0.7 (0.2-2.0) % Neut # (Auto) 5.7 (1.4-6.5) 10^3/uL Lymph # (Auto) 1.0 L (1.2-3.8) 10^3/uL [place] # (Auto) 0.9 H (0.3-0.8) 10^3/uL Eos # (Auto) 0.3 (0.0-0.7) 10^3/uL Baso # (Auto) 0.1 (0.0-0.1) 10^3/uL Abs Immat Gran (auto) 0.11 H (0.00-0.03) 10^3/uL Imm/Tot Granulo (auto) 1.4 H (0.0-0.5) % Sodium 130 L (136-145) mmol/L Potassium 4.8 (3.5-5.1) mmol/L Chloride 96 L (98-107) mmol/L Carbon Dioxide 26.5 (21.0-32.0) mmol/L Anion Gap 12.3 BUN 25.0 H (7.0-18.0) mg/dL Creatinine 1.17 (0.70-1.30) mg/dL Est GFR ( Amer) >60 (>=60 mL/min/1.73m^2) Est GFR (Non-Af Amer) 59 L (>=60 mL/min/1.73m^2) BUN/Creatinine Ratio 21.4 Glucose 102 (74-106) mg/dL Calcium 8.6 (8.5-10.1) mg/dL Total Bilirubin 1.0 (0.2-1.0) mg/dL AST 39 H (15-37) U/L ALT 20 (16-63) U/L Alkaline Phosphatase 94 (46-116) U/L Total Protein 6.3 L (6.4-8.2) g/dL Albumin 3.1 L (3.4-5.0) g/dL Globulin 3.2 g/dL Albumin/Globulin Ratio 1.0 Urine Color Lt. yellow (YELLOW) Urine Clarity Clear (CLEAR) Urine pH 6.0 (5.0-9.0) Ur Specific [place] <=1.005 A (1.005-1.025) Urine Protein Negative (NEG/TRACE) mg/dL Urine Glucose (UA) Negative (NEGATIVE) mg/dL Urine Ketones Negative (NEGATIVE) mg/dL Urine Occult Blood Negative (NEGATIVE) Urine Nitrite Negative (NEGATIVE) Urine Bilirubin Negative (NEGATIVE) Urine Urobilinogen 1.0 (0.2-1.0) EU/dL Ur Leukocyte Esterase Negative (NEGATIVE) Urine RBC 0-2 (0-2) #/HPF Urine WBC 0-2 A (NONE SEEN) #/HPF Ur Squamous Epith Cells Few A (NONE/RARE) #/LPF Urine Crystals None seen (None Seen) #/HPF Urine Bacteria None seen (NONE SEEN) #/HPF Urine Casts None seen (NONE SEEN) #/LPF Urine Mucus None seen (NONE SEEN) Imaging Data CT scan - pelvis: Radiologist's impression: ITS Impressions Abdomen/Pelvis CT 07/09/25 13:01 IMPRESSION: Left hip soft tissue swelling may recent postsurgical changes versus soft tissue contusion evidence of left hip intramedullary gen and screw with evidence of a left proximal femur fracture, correlate with any prior postoperative imaging recommended. Otherwise colonic diverticulosis. No definite acute inflammatory process or bowel obstruction. Suspected gallstones or sludge. Moderate hiatal hernia. Impression dictated by: Jean-Pierre Strong M.D. 07/09/2025 4:03 PM Dictation Location: [employer] Electronically authenticated by: [id number] Y Date: 07/09/2025 16:[address] 07/09/25 13:01 IMPRESSION: Multilevel degenerative change without evidence acute fracture malalignment. Severe central canal stenosis L3-L5 otherwise multilevel neural foraminal encroachment as noted above. No acute bony abnormality or malalignment. Impression dictated by: Jean-Pierre Strong M.D. 07/09/2025 4:13 PM Dictation Location: [employer] Electronically authenticated by: [id number] Y Date: 07/09/2025 16:13 Discharge Plan Discharge Chief Complaint: Back Pain/Injury Clinical Impression: Strain of lumbar region Patient Disposition: Home, Self-Care Time of Disposition Decision: 16:20 Condition: Good Mode of Transportation: Private Vehicle Prescriptions / Home Meds: New prednisone 50 mg tablet 50 mg PO DAILY 3 Days Qty: 3 0RF Print Language: Tunisian Instructions: Low Back Strain (ED), Back Pain (ED) Referrals: ARIEL ANDERSON [Primary Care Provider, Family Practice] - 1 week
[2025-07-09] MEDS: METHYLPREDNISOLONE SOD SUCC PF 125 MG/2 ML VIAL IVP (13:24)
[2025-07-09] MEDS: KETOROLAC TROMETHAMINE 30 MG/ML VIAL 15 MG IVP (13:24)
[2025-07-09 13:44] LABS: Hematocrit 24.4 % (42.0-54.0); Hemoglobin 8.3 g/dL (14.0-18.0); Immature Granulocytes Abs Auto 0.11 10^3/uL (0.00-0.03); Immature Granulocytes Pct Auto 1.4 % (0.0-0.5); Lymphocytes Absolute Auto 1.0 10^3/uL (1.2-3.8); Mean Corpuscular HGB Conc 34.0 g/dL (29.9-35.2); Mean Corpuscular Hemoglobin 33.6 pg (25.9-34.0); Mean Corpuscular Volume 98.8 fL (80.0-94.0); Platelet Count 512 10^3/uL (150-450); Red Blood Count 2.47 10^6/uL (4.70-6.10); White Blood Count 8.0 10^3/uL (4.0-11.0)
[2025-07-09 14:01] LABS: Alanine Aminotransferase 20 U/L (16-63); Albumin Globulin Ratio 1.0; Albumin Level 3.1 g/dL (3.4-5.0); Alkaline Phosphatase 94 U/L (46-116); Anion Gap 12.3; Aspartate Amino Transferase 39 U/L (15-37); Blood Urea Nitrogen 25.0 mg/dL (7.0-18.0); Calcium 8.6 mg/dL (8.5-10.1); Carbon Dioxide 26.5 mmol/L (21.0-32.0); Chloride 96 mmol/L (98-107); Estimated GFR (African America >60 (>=60 mL/min/1.73m^2); Estimated GFR (Non-African Ame 59 (>=60 mL/min/1.73m^2); Globulin 3.2 g/dL; Glucose 102 mg/dL (74-106); Potassium 4.8 mmol/L (3.5-5.1); Sodium 130 mmol/L (136-145); Total Protein 6.3 g/dL (6.4-8.2)
[2025-07-09 14:06] VITALS: BP 118/98; PULSE 73; O2SAT 98
[2025-07-09 14:34] LABS: Glucose Urine UA NEGATIVE (NEGATIVE)
[2025-07-09 14:44] LABS: Cast Seen? NONE SEEN #/LPF (NONE SEEN); Crystals Seen? None Seen #/HPF (None Seen)
[2025-07-09 15:55] VITALS: BP 162/75; PULSE 75; O2SAT 97
[2025-07-09 16:40] VITALS: BP 162/65; PULSE 78; O2SAT 96
== END 2025-07-09 16:43 | disposition home or self-care (01) ==
PROVIDERS: Physician Assistant; Emergency Provider Student in an Organized Health Care Education/Training Program; PCP Family Medicine
DX: S39.012A Strain of muscle, fascia and tendon of lower back, initial encounter (principal); X58.XXXA Exposure to other specified factors, initial encounter; Z98.890 Other specified postprocedural states; K57.30 Diverticulosis of large intestine without perforation or abscess without bleeding; K44.9 Diaphragmatic hernia without obstruction or gangrene
CPT/HCPCS: 36415; 72131; 74176; 76376; 80053; 81001; 85025; 96374; 96375; 99285; J1885; J2919

== ENCOUNTER 2025-08-24 21:57 | Emergency (ER) | payer OTHER, SELFPAY ==
--- OUTSIDE RECORDS SUMMARY | 2025-08-18 13:00 | XMS_ITS | Encounter Summary ---
Author Organization [facility] Address [address] [place] [address] Care Team Providers Care Wet Wash Assembler Name Role Phone Sai Landrum MD Unavailable [phone] Sai Landrum MD Primary Care Provider [phone] Jr. Marcial Borrero DO Unavailable Jesse Cabrera MD Unavailable [phone] Antonina Albrecht MD Unavailable Andreea Sousa INVENTORY AUDITOR Unavailable Reason for Visit * ReasonCommentsFollow-up Encounter Details DateTypeDepartmentCare Team (Latest Contact Info)Nhbijpkufiv36/03/2025 1:00 PM ESTOffice Visit [facility] [address] [facility] [address] [place] [address] Jr. Marcial Borrero, DO [address] [place] [address] Left hip pain Social History Tobacco UseTypesPacks/DayYears UsedDateSmoking Tobacco: NeverSmokeless Tobacco: NeverAlcohol UseStandard Drinks/ImtsAtyqgzjgRxc07 (1 standard drink = 0.6 oz pure alcohol)PHQ-2AnswerDate RecordedPatient Health Questionnaire-2 Score0 07/27/2025Sex and Gender InformationValueDate RecordedSex Assigned at BirthNot on fileLegal MalYits9411/28/2022 8:13 PM EDTGender IdentityNot on fileSexual OrientationNot on filedocumented as of this encounter Progress Notes * Marcial Markus Gissell, DO - 08/18/2025 1:00 PM EST Images from the original note were not included. HISTORY OF PRESENT ILLNESS: EST PT Nimesh Duran is an 84 y.o. @ male. (EST PT) - RECHECK (L) HIP S/P (L) ORIF PERITROCH FEMUR FX 06/28/25 (7 WKS 2 DAYS) @[facility] (DR. HODGES) XRAY (L) HIP TODAY, 08/18/25 IN EPIC XRAY (L) HIP 07/21/25 IN EPIC XRAY (PRE-OP) 06/28/25 @[facility] IN IMAGING TAB NO MRI (POST-OP) CT ABD / PELVIS 07/09/25 @[facility] IN [place]ANGE PT / OT @HOME [facility] WOULD LIKE TO DISCUSS PAIN MED RX OPTIONS. PRESENTS WITH WALKER - USING AT MOST TIMES. ADMITS ALTERED GAIT - DIFFICULTY WB ON (L) LEG. CONTINUES PT / HEP. DISCOMFORT TO LATERAL ASPECT. OCCASIONAL SHOOTING PAINS - CAN RADIATE TO FOOT. ADMITS SWELLING / BRUISING. MINIMAL N/T TO LEG. ADMITS STIFFNESS / INSTABILITY. GOOD ROM - PAINFUL WITH CERTAIN MOVEMENTS. ADMITS WAKING HS. OXYCODONE / TYL TID. ICING DAILY. HX LBP TALYA: 06/27/25 - FELL ONTO (R) SIDE, FELL ON HIM ON (L) SIDE ALLERGIES: Allergies[1] HOME MEDICATIONS: Current Outpatient Medications Medication Instructions amLODIPine (NORVASC) 2.5 mg, Oral, Daily atorvastatin (LIPITOR) 40 mg, Oral, Daily Docusate Sodium (COLACE PO) 1 tablet, Daily PRN lisinopril 20 mg, Oral, Daily, Hold if SBP <110 magnesium oxide (MAG-OX) 400 mg, Daily methocarbamol (ROBAXIN) 500 mg, Every 8 hours PRN omeprazole (PRILOSEC) 20 mg, Oral, Daily before breakfast, Do not crush or chew. oxyCODONE-acetaminophen (Percocet) 5-325 MG tablet 1 tablet, Oral, Every 4 hours PRN Potassium 99 MG tablet 1 tablet, Daily pregabalin (LYRICA) 75 mg, Oral, 3 times daily PHYSICAL EXAM: Hip Musculoskeletal Exam Gait Gait is normal. Antalgic: left Limp: left Assistive device: walker Inspection Leg length disparity: no discrepancy Left Erythema: mild Ecchymosis: mild Edema: mild Deformity: none Previous incision: anterolateral Previous incision comment: five Incision: clean, dry and well-healed Incisional drainage: none Palpation Left Left hip palpation is normal. Increased warmth: none Tenderness: present Greater trochanteric region pain: moderate Pubic rami pain: mild Range of Motion Left Left hip range of motion is within functional limits. Active ROM: normal. Passive ROM: normal. Active extension: 35. Passive extension: 35. Active flexion: 90. Passive flexion: 90. Active internal rotation: 45. Passive internal rotation: 45. Active external rotation: 35. Passive external rotation: 35. Active adduction: 30. Passive adduction: 30. Active abduction: 35. Passive abduction: 35. Strength Left Left hip strength is normal. Extension: 5/5. Flexion: 5/5. Internal rotation: 5/5. External rotation: 5/5. Adduction: 5/5. Abduction: 5/5. Neurovascular Left Left hip neurovascular exam is normal. Pulses - PT: normal Posterior tibial: 2+ General Constitutional: appears stated age Labored breathing: no Psychiatric: normal mood and affect Neurological: alert and oriented x3 Skin: intact Lymphadenopathy: none Vitals: There is no height or weight on file to calculate BMI. Tobacco Use: Low Risk (08/18/2025) Patient History Smoking Tobacco Use: Never Smokeless Tobacco Use: Never Passive Exposure: Not on file Recent Concern: Tobacco Use - Medium Risk (06/29/2025) Received from [facility] Patient History Smoking Tobacco Use: Former Smokeless Tobacco Use: Never Passive Exposure: Not on file Alcohol Use: Alcohol Misuse (06/28/2025) Received from [facility] AUDIT-C Q1: How often do you have a drink containing alcohol?: 4 or more times a week Q2: How many drinks containing alcohol do you have on a typical day when you are drinking?: 3 or 4 Q3: How often do you have six or more drinks on one occasion?: Weekly IMAGING: XR hip left 2 or 3 views Imaging Result: Imaging Result: AP and lateral of left hip showed unchanged position and alignment of Intertrochanteric hardware. Femoral head was well centered in the acetabulum. There was no evidence of separate fracture and/or dislocation. No gross evidence of complication of hardware noted. There was evidence of increased callous formation at the fracture site compared to prior xrays. Impression: No acute bony process Intramedullary, intertrochanteric nailing of Left hip Procedures Orders Placed This Encounter Procedures XR hip left 2 or 3 views Reason for exam:: Post-op ASSESSMENT: ICD-10-CM 1. Left hip pain M25.552 XR hip left 2 or 3 views PLAN: We have discussed his symptoms, Physical exam and x-rays today length. We have recommended that he walk around 1 minute every 2 hours with his walker weightbearing as tolerated. We have discussed hisrestrictions and gentle home exercise program and we'll see him back in 1 month. Questions answered in laymen terms at the bedside. The diagnosis, home exercise plan and any ongoing restrictions/ recommendations reviewed. If unable to be reached in office, I recommend evaluation at nearest Emergency Room if any symptoms worsened or new symptoms develop for requiring urgent evaluation. [1] No Known Allergies documented in this encounter Plan of Treatment DateTypeDepartmentCare Team (Latest Contact Info)Tnkfgegheyz58/10/2025 2:00 PM ESTOffice Visit N[facility] [address] [facility] [address] [place] [address] Sai Landrum MD 112 [facility] [address] [place] [address] 09/22/2025 2:45 PM ESTOffice Visit [facility] [address] [place] [address] Jr. Marcial Borrero DO 112 [facility] [address] [place] [address] 01/19/2026 10:00 AM EDTOffice Visit N[facility] [address] [facility] [address] [place] [address] Sai Landrum MD 112 [facility] 100 [place] [address] (Fax) documented as of this encounter Procedures Procedure NamePriorityDate/TimeAssociated DiagnosisCommentsXR HIP 2 OR 3 VW LEFT Wgmfjmb0208/18/2025 1:13 PM EST Left hip pain documented in this encounter Results * XR hip left 2 or 3 views (08/18/2025 1:13 PM EST)Anatomical RegionLaterality ModalityLower Extremities, HipLeftRadiographic ImagingSpecimen (Source) Anatomical Location / LateralityCollection Method / VolumeCollection Time Received Time Narrative 08/18/2025 1:46 PM EST Imaging Result: Imaging Result: AP and lateral of left hip showed unchanged ??position and alignment of Intertrochanteric hardware. ??Femoral head was well centered in the acetabulum. ??There was no evidence of separate fracture and/or dislocation. ??No gross evidence of complication of hardware noted. ??There was evidence of increased callous formation at the fracture site compared to prior xrays. ??Impression: No acute bony process Intramedullary, intertrochanteric nailing of Left hip Authorizing ProviderResult TypeResult StatusJr. Marcial Borrero DOIMG XR PROCEDURESFinal Result documented in this encounter Visit Diagnoses Diagnosis Left hip pain Pain in joint, pelvic region and thigh documented in this encounter Additional Health Concerns AssessmentNoted TimePHQ-9 Depression Total Score: 307 9:00 AM EDT documented as of this encounter Care Teams Team MemberRelationshipSpecialtyStart DateEnd Date Sai Landrum MD [address] [address] (Fax) PCP - Devoted09/16/20 Sai Landrum MD [address] [address] (Fax) PCP - GeneralFamily Medicine01/23/23 Jr. Marcial Borrero DO [address] [place] [address] [address] [place] [address] Referring PhysicianOrthopaedic Surgery03/23/25 Jesse Cabrera MD [address] [place] [address] Referring PhysicianCardiology03/23/25 Antonina Albrecht MD [address] [facility] [place] [address] Referring PhysicianDermatology03/23/25 Andreea Sousa, CHALINO [address] [place] [address] Social WorkerFamily Gkoudvfc09/14/25documented as of this encounter
--- OUTSIDE RECORDS SUMMARY | 2025-08-18 13:15 | XMS_ITS | Encounter Summary ---
Author Organization [facility] Address [address] [place] [address] Care Team Providers Care Ceramic Design Engineer Name Role Phone Sai Landrum MD Unavailable [phone] Sai Landrum MD Primary Care Provider [phone] Jr. Marcial Borrero DO Unavailable [phone] Jesse Cabrera MD Unavailable [phone] Antonina Albrecht MD Unavailable Andreea Sousa DYEING MACHINE TENDER Unavailable [phone] Encounter Details DateTypeDepartmentCare Team (Latest Contact Info)Xhatasczmxw66/03/2025 1:15 PM ESTAncillary Procedure [facility] [address] [facility] [address] [place] [phone] Social History Tobacco UseTypesPacks/DayYears UsedDateSmoking Tobacco: NeverSmokeless Tobacco: NeverAlcohol UseStandard Drinks/HtaaKrenjveqLpt72 (1 standard drink = 0.6 oz pure alcohol)PHQ-2AnswerDate RecordedPatient Health Questionnaire-2 Score0 07/27/2025Sex and Gender InformationValueDate RecordedSex Assigned at BirthNot on fileLegal AjrAilg5311/28/2022 8:13 PM EDTGender IdentityNot on fileSexual OrientationNot on filedocumented as of this encounter Plan of Treatment DateTypeDepartmentCare Team (Latest Contact Info)Xdhjliccstj92/10/2025 2:00 PM ESTOffice Visit [facility] [address] [place] [address] [address] [place] [address] Sai Landrum MD [address] [facility] [address] [place] [address] (Fax) 09/22/2025 2:45 PM ESTOffice Visit [facility] [address] [place] [address] Jr. Marcial Borrero, DO [address] [place] [address] 01/19/2026 10:00 AM EDTOffice Visit NOMS [address] [facility] [address] [place] [address] Sai Landrum MD 112 [facility] [address] [place] [address] (Fax) documented as of this encounter Procedures Procedure NamePriorityDate/TimeAssociated DiagnosisCommentsXR HIP 2 OR 3 VW LEFT Ptvetfg6608/18/2025 1:13 PM EST Left hip pain documented [...] hip Authorizing ProviderResult TypeResult StatusJr. Marcial Borrero DOI XR PROCEDURESFinal Result documented in this encounter Visit Diagnoses Not on filedocumented in this encounter Additional Health Concerns AssessmentNoted TimePHQ-9 Depression Total Score: 307 9:00 AM EDT documented as of this encounter Care Teams Team MemberRelationshipSpecialtyStart DateEnd Date Sai Landrum MD [address] [address] PCP - Devoted09/16/20 Sai Landrum MD [address] [address] PCP - GeneralFamily Medicine01/23/23 Jr. Marcial Borrero DO [address] [address] Referring PhysicianOrthopaedic Surgery03/23/25 Jesse Cabrera MD [address] [place] [address] Referring PhysicianCardiology03/23/25 Antonina Albrecht MD [address] [place] [address] Referring PhysicianDermatology03/23/25 Andreea Sousa, DYEING MACHINE TENDER [address] [place] [address] Social WorkerFamily Tzcmlfav27/14/25documented as of this encounter
[2025-08-24 22:02] VITALS: BP 189/83; PULSE 90; TEMP 36.8; O2SAT 99; BMI 29.2
--- NOTE | 2025-08-24 22:16 | XR_ITS ---
[address] [address] Patient Name: JOO ALLEN MRN: [id number] date: 1940 Sex: M Assigned Patient Location: ER Current Patient Location: ED.MAIN Accession/Order Number: [id number] Exam Date: 08/24/2025 22:28 Report Date: 08/24/2025 23:20 At the request of: CODIE FAIRBANKS MD Procedure: XR abdomen 1V Abdominal x-ray INDICATION: Constipation COMPARISON: CT abdomen pelvis 07/09/2025 FINDINGS: Lung bases are clear. Moderate stool burden. No bowel obstruction. No radiopaque calcifications overlying the renal shadows. No definite free air. XR/XR abdomen 1V IMPRESSION: Moderate colonic stool burden. No definite bowel obstruction. Impression dictated by: Jean-Pierre Strong M.D. 08/24/2025 11:20 PM Dictation Location: [place] [address] Electronically authenticated by: [id number] Y Date: 08/24/2025 23:20
--- NOTE | 2025-08-24 22:17 | ED_ITS ---
HPI HPI - General Adult General Chief complaint: Abdominal Pain Stated complaint: Constipation Time Seen by Provider: 08/24/25 22:13 Source: patient and family Mode of arrival: Wheelchair Limitations: no limitations History of Present Illness HPI narrative: recent left [facility] about 7 weeks ago. Has been taking oxycodone but states he is only taking hs. Also using neurontin. No BM now for 4 days. Complains of abdominal pain. no nausea or vomiting. States he did attempt to dig himself out but this did not work. No fever Related Data Previous Rx's ?Medication ?Instructions ?Recorded prednisone 50 mg tablet 50 mg PO DAILY 3 days #3 tab s 07/09/25 Allergies Allergy/AdvReac Type Severity Reaction Status Date / Time No Known Drug Allergies Allergy Verified 08/24/25 22:06 Opioid HPI Opioid Management Most Recent Opioid Data: Last Pain Scale 2 07/09/25, 13:37 Review of Systems ROS Status of ROS 10 or more systems reviewed and unremark able except as noted in history and below PFSH PFSH Social History Little interest or pleasure in doing things: not at all Feeling down, depressed, or hopeless: not at all Exam Constitutional Vital Signs, click to edit/add: Last Vital Signs Temp 98.2 F 08/24/25 22:02 Pulse 90 08/24/25 22:02 Resp 18 08/24/25 22:02 BP 189/83 H 08/24/25 22:02 Pulse Ox 99 08/24/25 22:02 O2 Del Method Room Air 08/24/25 22:02 Common normals: no apparent distress, average body habitus, oriented x3, no limitations, healthy appearing, alert and well nourished [facility] Common normals: normocephalic and head/scalp atraumatic Eye Common normals: EOMs intact bilaterally and conjunctivae normal Respiratory Common normals: normal respiratory effort, no retractions, no use of accessory muscles and clear to auscultation bilaterally Cardio Common normals: regular rate, regular rhythm, S1 normal heart sound and S2 normal heart sound GI Common normals: Normal to inspection, nondistended, normoactive bowel sounds present, soft to palpation and non-tender Other: anal verge inspected and no injuries or obvious abnormalities Extremity Common normals: normal to inspection and full ROM Neuro Common normals: oriented x3, CN's II-XII intact bilaterally and moves all extremities Psych Appearance: grossly normal Course Vital Signs Vital signs: Vital Signs Temperature 98.2 F 08/24/25 22:02 Pulse Rate 90 08/24/25 22:02 Respiratory Rate 18 08/24/25 22:02 Blood Pressure 189/83 H 08/24/25 22:02 Pulse Oximetry 99 08/24/25 22:02 Oxygen Delivery Method Room Air 08/24/25 22:02 Temperature 98.2 F 08/24/25 22:02 Pulse Rate 90 08/24/25 22:02 Respiratory Rate 18 08/24/25 22:02 Blood Pressure 189/83 H 08/24/25 22:02 Pulse Oximetry 99 08/24/25 22:02 Oxygen Delivery Method Room Air 08/24/25 22:02 Medical Decision Making MDM Narrative Medical decision making narrative: patient presents with complaint of constipation. No nausea or vomiting. abdomen soft with mild tenderness. Xray with increased stool burden. enema successful by nursing and patient discharged home improved Discharge Plan Discharge Chief Complaint: Abdominal Pain Clinical Impression: Constipation Patient Disposition: Home, Self-Care Prescriptions / Home Meds: No Action prednisone 50 mg tablet 50 mg PO DAILY 3 Days Qty: 3 0RF Print Language: Romansh Instructions: Constipation (ED) Additional Instructions: follow up with your doctor this week for recheck Referrals: ARIEL ANDERSON [Primary Care Provider, Family Practice] - 1 week
--- OUTSIDE RECORDS SUMMARY | 2025-08-24 22:21 | XMS_ITS | Encounter Summary ---
Author Organization [facility] Address [address] [place] [address] Care Team Providers Care Manager Games Name Role Phone Sai Landrum MD Primary Care Provider [phone] Encounter Details DateTypeDepartmentCare Team (Latest Contact Info)Marvnhxskvm30/24/2025Results Follow-Up [place] [facility] [address] [place] [address] Evelyn Medeiros, JOB BOSS [address] [place] [address] Complete Echo (TTE) w/wo Imaging Agent, Strain, 3D, Bubble Study Social History Tobacco UseTypesPacks/DayYears UsedDateSmoking Tobacco: FormerCigarettes Smokeless Tobacco: NeverAlcohol UseStandard Drinks/WeekCommentsYes0 (1 standard drink = 0.6 oz pure alcohol)couple glasses of wine dailyUT Safety & Environment AnswerDate RecordedFear of Current or Ex-PartnerNot on 11/07/2023Emotionally AbusedNot on 11/07/2023hysically AbusedNot on 11/07/2023Sexually Abused Not on file11/07/2023hysically or Sexually AbusedNot on 11/07/2023Sex and Gender InformationValueDate RecordedSex Assigned at XriexEvch97/05/2025 1:26 PM EDTLegal HkwActg5103/14/2022 10:34 PM EDTGender XmfrkbbsGvdg82/05/2025 1:26 PM EDT Sexual OrientationHeterosexual or Mrvknfal54/05/2025 1:26 PM EDTdocumented as of this encounter Miscellaneous Notes * Result Encounter Note - Evelyn Medeiros CNP - 06/09/2025 5:18 PM EDT Please let him know his ECHO showed normal pumping function. His aortic, mitral and tricuspid valves were mildly leaky . Just monitor at this time with a follow-up ECHO in 1-2 years or sooner if needed. Follow-up as planned. Thanks! documented in this encounter Plan of Treatment Not on file documented as of this encounter Visit Diagnoses Not on filedocumented in this encounter Care Teams Team MemberRelationshipSpecialtyStart DateEnd Date Sai Landrum MD PCP - [facility]04/22/23documented as of this encounter
--- OUTSIDE RECORDS SUMMARY | 2025-08-24 22:21 | XMS_ITS | Clinical Summary ---
Author Organization [facility] Address [address] [place] [address] Care Team Providers Care Leather Shaver Name Role Phone Sai Landurm MD Primary Care Provider [phone] Allergies No known active allergies Medications MedicationSigDispense [...] Problems ProblemNoted DateDiagnosed DateCoronary artery disease involving twenty-nine palms coronary artery of twenty-nine palms heart without angina tnermloe78/09/2023 Overview (04/24/2023): ??Date: 07/05/2021 Cardiovascular Laboratory Report IMPRESSIONS: 1. 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 2. 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 Continue lipitor. Repeat lipid level at 1 year. Assessment & Plan (04/24/2023 12:08 PM EDT): Continue lipitor Arthritis of carpometacarpal (CMC) joint of right thumb02/26/2023ependence on other enabling machines and tfewnzg8102/26/2023Essential kqopjy5102/26/2023First degree AV block02/26/2023astroesophageal reflux disease without esophagitis 02/26/2023Hypertensive yexcjjczhht52/13/1031Kpmeqbbcijfwlghk47/13/2023Nodular prostate without lower urinary tract lrbobyjm97/13/2023Nonrheumatic aortic valve irumgnwzupqui29/13/2023 Assessment & Plan (05/27/2024 9:41 AM EDT): No concerning symptoms. No significant murmur noted. Will discuss repeat Echo at next visit, or with any concerning symptoms. Nonrheumatic mitral valve yuzfneosyibyq74/13/2023Obstructive sleep apnea (adult) (pediatric)02/26/2023Other pulmsjbp09/13/2023Over chgqrp9302/26/2023olyp of colon 02/26/2023ulmonary /13/2023 Assessment & Plan (05/27/2024 9:41 AM EDT): Good aerobic capacity. Still able to push mow his lawn. Sick sinus lkynqwnx18/13/2023Stage 2 chronic kidney fnxmkmx6902/26/2023Sinus sgwcokaatat12/06/2021VC (premature ventricular contraction)08/21/2021 Mjqtabtlyol14/11/2021 Assessment & Plan (05/27/2024 9:42 AM EDT): Stable. No concerning symptoms. HR 70 today with metoprolol Renal artery /11/2021 Encounters DateTypeDepartmentCare XtbwWweimlvdzaf59/24/2025Results Follow-Up [place] [facility] [address] [place] [id number] Evelyn Medeiros CNP Complete Echo (TTE) w/wo Imaging Agent, Strain, 3D, Bubble Study06/02/2025Orders Only [facility] [address] [place] [address] ProviderBlanca MD 05/26/2025 9: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; Benign essential HTN; [...] file11/07/2023Sex and Gender InformationValueDate RecordedSex Assigned at TgmfbWtjk95/05/2025 1:26 PM EDT Legal MflBezz8803/14/2022 10:34 PM EDTGender KnmtzhooKlbc93/05/2025 1:26 PM EDT Sexual OrientationHeterosexual or Qyhxfadt81/05/2025 1:26 PM EDT Last Filed Vital Signs Vital SignReadingTime TakenCommentsBlood Jndintjb110/71005/26/2025 8:58 AM EDT Xfsmx2048/10/2025 8:58 AM EDTTemperature--Respiratory Rate--Oxygen Zugygijvha51% 05/26/2025 8:58 AM EDTInhaled Oxygen Concentration--Ghnmap66.9 kg (163 lb) 05/26/2025 8:58 AM OHINrgiyr854.6 cm (5' 6 )05/26/2025 8:58 AM EDTBody Mass Index26.3109 8:58 AM EDT Plan of Treatment Health MaintenanceDue DateLast DoneCommentsMedicare Annual Wellness (AWV) 1939Depression Eiezgalaw06/07/1952neumococcal Vaccine: 50+ Years (1 of 2 - PCV)1958dult Xsxidpe7410/23/1961Zoster Vaccines (1 of 2)1989Fall Risk Cczrzjrvs01/07/2005COVID-19 Vaccine (5 - season)2025 08/15/2022, 07/12/2021, 11/03/2020, [...] Team MemberRelationshipSpecialtyStart DateEnd Date Sai Landrum MD [facility]04/22/23
--- OUTSIDE RECORDS SUMMARY | 2025-08-24 22:21 | XMS_ITS | Encounter Summary ---
Author Organization [facility] Address [address] [place] [address] Care Team Providers Care Textile Conversion Manager Name Role Phone Sai Landrum MD Unavailable [phone] Sai Landrum MD Primary Care Provider [phone] Jr. Marcial Borrero DO Unavailable [phone] Jesse Cabrera MD Unavailable [phone] Antonina Albrecht MD Unavailable Andreea Sousa Unavailable [phone] Encounter Details DateTypeDepartmentCare Team (Latest Contact Info)Mxdblizogif10/03/2025Travel Social History Tobacco UseTypesPacks/DayYears UsedDateSmoking Tobacco: NeverSmokeless Tobacco: NeverAlcohol UseStandard Drinks/WlpqAcctdkrfQvf21 (1 standard drink = 0.6 oz pure alcohol)PHQ-2AnswerDate RecordedPatient Health Questionnaire-2 Score0 07/27/2025Sex and Gender InformationValueDate RecordedSex Assigned at BirthNot on fileLegal LgnBzpg9911/28/2022 8:13 PM EDTGender IdentityNot on fileSexual OrientationNot on filedocumented as of this encounter Plan of Treatment DateTypeDepartmentCare Team (Latest Contact Info)Efjgvhmfram84/10/2025 2:00 PM ESTOffice Visit [facility] [place] [facility] [address] [facility] [address] [place] [address] Sai Landrum MD [address] [facility] 100 [place] [address] (Fax) 09/22/2025 2:45 PM ESTOffice Visit [facility] [address] [facility] [address] [place] [address] Jr. Marcial Borrero DO [address] [place] [address] 01/19/2026 10:00 AM EDTOffice Visit [facility] [place] [facility] [address] [place] [address] Sai Landrum MD [address] [facility] [address] [place] [address] (Fax) documented as of this encounter Visit Diagnoses Not on filedocumented in this encounter Additional Health Concerns AssessmentNoted TimePHQ-9 Depression Total Score: 9:00 AM EDT documented as of this encounter Care Teams Team MemberRelationshipSpecialtyStart DateEnd Date Sai Landrum MD [address] [facility] [address] [place] [address] (Fax) PCP - Devoted09/16/20 Sai Landrum MD [address] [facility] [address] [place] [address] (Fax) PCP - GeneralFamily Medicine01/23/23 Jr. Marcial Borrero DO [address] [facility] [address] [place] [address] Referring PhysicianOrthopaedic Surgery03/23/25 Jesse Cabrera MD [address] [place] [address] Referring PhysicianCardiology03/23/25 Antonina Albrecht MD [address] [place] [address] Referring PhysicianDermatology03/23/25 Andreea Sousa, CHALINO [address] [place] [address] Social WorkerFamily Zoeznhgk46/14/25documented as of this encounter
--- OUTSIDE RECORDS SUMMARY | 2025-08-24 22:21 | XMS_ITS | Clinical Summary ---
Author Organization [email or web address] Address [id number] [address] [place] [address] Care Team Providers Care Experimental Rocketsled Mechanic Name Role Phone Sai Landrum MD Primary Care Provider [phone] Social History Tobacco UseTypesPacks/DayYears UsedDateSmoking Tobacco: Never AssessedSex and Gender InformationValueDate RecordedSex Assigned at BirthNot on fileLegal Sex Male06/11/2023 9:47 AM EDTGender IdentityNot on fileSexual OrientationNot on file Plan of Treatment Health MaintenanceDue DateLast DoneCommentsDepression Qhwnggpuc38/07/1952Tobacco Vdezmdewp53/07/1952Zoster (Shingles) Vaccine (1 of 2)1989Fall Risk Oannvrknu69/07/2005RSV ( or age 60+ yrs) (1 - 1-dose 75+ series) 2014COVID-19 Vaccine ( season)/, 07/12/2021, 11/03/2020, Additional history existsInfluenza Dkesrfj27/, 08/04/2021TaP,Tdap and Td Vaccines (2 - Tdap) Medical Devices Not on file Insurance * Guarantor: Nimesh DuranAccount TypeRelation to PatientDate of BirthPhone Billing AddressPersonal/ZlobauZwpd26/07/1941 [address] [place] [address] Care Teams Team MemberRelationshipSpecialtyStart DateEnd Date Sai Landrum MD PCP - GeneralFamily Medicine06/11/23
--- OUTSIDE RECORDS SUMMARY | 2025-08-24 22:21 | XMS_ITS | CCD ---
Author Organization [facility] CliniSyms Care Team Providers Care [employer] Custodian Name Role Phone SELF, REFERRED Referring Unavailable ELTAHAWY, EHAB A Admitting Unavailable ELTAHAWY, EHAB A Attending Unavailable SELF, REFERRED Primary Care Unavailable MONICA, DR GEORGE Admitting Unavailable ANNETTAYER, DR GEORGE Attending Unavailable MONICA, DR GEORGE Primary Care Unavailable MONICA, DR GEORGE Consulting Unavailable VASHTI, DR HART Admitting Unavailable VASHTI, DR HART Attending Unavailable MONICA, DR GEORGE Primary Care Unavailable VASHTI, DR HART Consulting Unavailable Sai Anderson MD Unavailable Sai Anderson MD Primary Care Provider Sai Anderson MD Unavailable Sai Anderson MD Primary Care Provider Sai Andesron MD Unavailable [phone] Sai Anderson MD Primary Care Provider [phone] Jr. Lynsey Borrero DO Unavailable Deborah HATFIELD, Marlonab Unavailable Antonina Albrecht MD Unavailable VALERIA STOKES Attending Unavailable Sai Anderson MD Primary Care Provider Jr. Lynsey Borrero DO Unavailable Deborah HATFIELD, Marlonab Unavailable Antonina Albrecht MD Unavailable SAI ANDERSON Primary Care Unavailable MENSCHEChaparrita, RAMEZ BAHENA Referring Unavaila ble MENSCHEL, RAMEZ BAHENA Attending Unavaila ble MENSCHEL, RAMEZ BAHENA Referring Unavaila ble MENSCHEL, RAMEZ SHRUTI Attending Hernestoa SAI Downs Primary Care Unavailable SAI ANDERSON Primary Care Unavailable PHILIP FARIAS Admitting Unavailable LUIS HANDLEY Consulting Unavailable RAMEZ DENNEY Attending Unavaila EDUARDO Morse Consulting Unavailable VALENTINA PATIÑO Consulting Unavaila SO Nicole Attending SO Hunter Referring SAI Prajapati Primary Care Unavailable RAMEZ DENNEY Referring Unavaila ble DIONI, RAMEZ BAHENA Attending Unavaila SAI Downs Primary Care Unavailable SAI ANDERSON Primary Care Unavailable RAMEZ DENNEY Attending Unavaila brunilda DENNEY, RAMEZ BAHENA Referring Unavaila SAI Downs Attending Unavailable SAI ANDERSON Attending Unavailable SAI ANDERSON Attending Unavailable JR. RENNY, LYNSEY Aparicio Attending Unavaila SAI Downs Referring Unavailable JR. RENNY, LYNSEY Aparicio Referring Unavaila SAI Downs Attending Unavailable SAI ANDERSON Attending Unavailable Medications Current Medications MedicationDrug Class(es)DatesSig (Normalized)Sig (Original)acetaminophen 325 mg oral tablet (1 source)Start: 93-59-8578155 mg, Oral, EVERY 4 HOURS PRN, Starting on Sat06/28/25 at 2033, Until Discontinued, Mild pain (score 1-3)acetaminophen 325 mg / oxyCODONE hydrochloride 5 mg oral tablet (8 sources)Opioid AgonistStart: 07-21-2025 End: 79-97-3565pzyw 1 tablet by mouth every four hours for painoxyCODONE- acetaminophen (Percocet) 5-325 MG tablet Indications: Closed fracture of left hip with routine healing , Postoperative pain Take 1 tablet by mouth every 4 (four) hours if needed for moderate pain 20 tablet 07/21/2025 07/28/2025 Active Start: 06-29-2025 End: 50-30-2733olxa 1 tablet by mouth every four hours as neededoxyCODONE- acetaminophen (Percocet) 5-325 MG tablet Take 1 tablet by mouth every 4 (four) hours if needed 07/02/2025 07/08/2025 Discontinued (Reorder)amLODIPine 5 mg oral tablet (20 sources)Dihydropyridine Calcium Channel BlockerStart: 07-02-2025 End: 52-13-6639glrx 0.5 tablet by mouth once dailyamLODIPine (NORVASC) 5 mg tablet Indications: hypertension Take 0.5 tablets (2.5 mg total) by mouthdaily Hold for SBP 07/02/2025 08/01/2025 ActiveStart: 72-55-3400uzhf 2.5 mg by mouth once daily2.5 mg, Oral, DAILY, First dose (after last modification) on Sat07/02/25 at 0900, Until DiscontinuedStart: 01-27-2024 End: 74-48-2112yozk 5 mg by mouth once daily5 mg, Oral, DAILY, First dose on Sat06/29/25 at 0900, Until Discontinuedaspirin 81 mg chewable tablet (20 sources)Platelet Aggregation Inhibitor, Nonsteroidal Anti-inflammatory Drug Start: 08-02-2025 End: 42-81-3242rhgs 1 tablet by mouth once dailyaspirin 81 mg chewable tablet Indications: myocardial infarction prevention Take 1 tablet (81 mg total) by mouth daily Restart after completion of full dose aspirin Indications: treatment to prevent a heart attack 08/02/2025 09/01/2025 ActiveStart: 07-02-2025 End: 24-72-8280dbsn 1 tablet by mouth in the morningaspirin 325 MG tablet Take 325 mg by mouth in the morning and 325 mg before bedtime. 07/02/2025 08/01/2025 ActiveStart: 06-29-2025 End: 27-70-7602kqgk 81 mg by mouth once daily81 mg, Oral, DAILY, First dose on Sat06/29/25 at 0900, Until Discontinuedaspirin 81 MG EC tablet 81 mg in the morning. Activeatorvastatin 40 mg oral tablet (20 sources)HMG-CoA Reductase InhibitorStart: 01-27-2024 End: 21-67-9820bgtf 1 tablet by mouth once dailyatorvastatin (Lipitor) 40 MG tablet Indications: Mixed hyperlipidemia Take 1 tablet (40 mg) by mouth Daily 90 tablet 1 01/28/2025 Activeferrous sulfate 325 mg oral tablet (8 sources)Start: 07-02-2025 End: 40-94-4223lcgh 1 tablet by mouth in the morningferrous sulfate 325 (65 Fe) MG tablet Take 325 mg by mouth in the morning. 07/02/2025 08/01/2025 Active lisinopril 40 mg oral tablet (20 sources)Angiotensin Converting Enzyme InhibitorStart: 07-02-2025 End: 37-72-6555xazs 0.5 tablet by mouth once dailylisinopriL (ZESTRIL) 40 mg tablet Indications: hypertension Take 0.5 tablets (20 mg total) by mouthdaily Hold for SBP 07/02/2025 08/01/2025 ActiveStart: 44-84-4037xtqi 10 mg by mouth once daily10 mg, Oral, DAILY, First dose (after last modification) on Sat07/02/25 at 0900, Until DiscontinuedStart: 01-27-2024 End: 26-44-5570kryz 40 mg by mouth once daily40 mg, Oral, DAILY, First dose on Sat06/29/25 at 0900, Until Discontinuedtake 1 tablet by mouth once daily lisinopril 20 MG tablet Take 20 mg by mouth Daily Hold if SBP Active methocarbamol 500 mg oral tablet (8 sources)Muscle RelaxantStart: 07-02-2025 End: 21-05-9524qhix 1 tablet by mouth every eight hours as neededmethocarbamol (Robaxin) 500 MG tablet Take 500 mg by mouth every 8 (eight) hours if needed for muscle spasms 07/02/2025 ActiveStart: 07-02-2025 End: 71-70-2728mhpa 1 tablet by mouth three times daily as needed for muscle spasmsmethocarbamoL (ROBAXIN) 500 mg tablet Take 1 tablet (500 mg total) by mouth 3 times a day as neededfor Muscle spasms 30 tablet 07/02/2025 07/12/2025 Activenabumetone 750 mg oral tablet (20 sources)Nonsteroidal Anti-inflammatory DrugStart: 97-67-1373xwzb 2 tablets by mouth once dailynabumetone (Relafen) 750 MG tablet Indications: Arthritis of carpometacarpal (CMC) joint of right thumb TAKE 2 TABLETS BY MOUTH EVERY DAY 180 tablet 1 05/13/2025 ActiveStart: 68-51-7645hpzw 2 tablets by mouth once daily nabumetone (Relafen) 750 MG tablet Indications: Arthritis of carpometacarpal (CMC) joint of right thumb TAKE 2 TABLETS BY MOUTH EVERY DAY 180 tablet 1 01/27/2024 Active End: 85-52-2710uwuk 1 tablet by mouth in the morning, then take 1 tablet by mouth at bedtimenabumetone (RELAFEN) 750 mg tablet Take 1 tablet (750 mg total) by mouth in the morning and 1 tablet (750 mg total) before bedtime. 07/02/2025 Discontinued (Stop on Discharge)omeprazole 20 mg delayed release oral capsule (20 sources)Proton Pump InhibitorStart: 01-27-2024 End: 16-86-3356fvtt 1 capsule by mouth before mealtimeomeprazole (PriLOSEC) [address] capsule Indications: Gastroesophageal reflux disease without esophagitis Take 1 capsule (20 mg) by mouth in the morning. Take before meals. Do not crush or chew. 90 capsule 1 01/28/2025 Activeondansetron (ZOFRAN) injection 4 mg (1 source)Start: 15-48-6630siqtqtxkruw (ZOFRAN) injection 4 mgpolyethylene glycol 3350 69956 mg powder for oral solution (6 sources)Osmotic LaxativeStart: 07-02-2025 End: 23-75-0259kqgtyvxeqjno glycol, PEG, 3350 (Miralax) 17 g packet Take 34 g by mouth 1 (one) time 07/02/2025 08/01/2025 ActiveStart: 07-02-2025 End: 22-94-0591xernhgxlrswq glycol (MIRALAX) 17 gram packet Take 34 g by mouth daily as needed for Constipation 60each 07/02/2025 08/01/2025 ActiveStart: g, Oral, TWO TIMES DAILY, First dose on Sat07/01/25 at 1800, Until Discontinuedpotassium 99 mg extended release oral tablet (3 sources)take 1 tablet by mouth once dailyPotassium 99 MG tablet Take 1 tablet by mouth Daily Activepotassium gluconate 2.6 meq oral tablet (16 sources)take 1 tablet by mouth once dailyPotassium Gluconate 2.5 MEQ tablet Take 1 tablet by mouth 1 (one) time each day. Activesodium chloride 0.154 meq/ml irrigation solution (2 sources)Start: 41-21-4377FOLLANXUPI PRN, Starting on Sat06/29/25 at 1426, Intra-opStart: 06-28-2025 End: 96-26-9539cskq 75 mL intravenously every hour75 mL/hr, Intravenous, CONTINUOUS, Starting on Sat06/28/25 at 2115 Completed/Discontinued Medications MedicationDrug Class(es)DatesSig (Normalized)Sig (Original)ceFAZolin 2000 mg injection (1 source)Cephalosporin AntibacterialStart: 06-29-2025 End: ,000 mg, Intravenous, Administer over 30 Minutes, EVERY 8 HOURS (3 times per day), First dose on Sat06/29/25 at 2100, Post-opdocusate sodium 100 mg oral capsule (4 sources)Start: 08-43-4991gflr 100 mg by mouth twice daily as uzyahk785 mg, Oral, TWO TIMES DAILY PRN, Starting on Sat06/28/25 at 2034, Until Discontinued, Constipationtake 1 tablet by mouth once daily as needed for constipationDocusate Sodium (COLACE PO) Take 1 tablet by mouth Daily as needed (constipation) Active 0.4 ml enoxaparin sodium 100 mg/ml prefilled syringe (1 source)Low Molecular Weight HeparinStart: 86-40-6019xkaepq 40 mg by subcutaneous injection once daily40 mg, Subcutaneous, DAILY AT 0800, First dose on Sat06/30/25 at 0800, Until Discontinued1 ml fentaNYL 0.05 mg/ml injection (1 source)Opioid AgonistStart: 06-29-2025 End: 84-34-848642 mcg, Intravenous, EVERY 10 MIN PRN, 8 doses, Starting on Sat06/29/25 at 1525, Until Sat06/29/25 at 1652, Moderate pain (score 4-6), PACU1 ml ketorolac tromethamine 30 mg/ml injection (1 source)Nonsteroidal Anti-inflammatory Drug, Cyclooxygenase InhibitorStart: 06-28-2025 End: 38-64-149792 mg, Intravenous, EVERY 6 HOURS PRN, Starting on Sat06/28/25 at 2038, Until Sat06/29/25 at 7, Severe pain (score 7-10)magnesium oxide 400 mg oral tablet (20 sources)Start: 85-53-1617ptye 200 mg by mouth once mg, Oral, DAILY, First dose on Sat06/29/25 [...] Activemelatonin 3 mg oral tablet (1 source)Start: 68-23-4487quqa 3 mg by mouth once daily at bedtime as needed3 mg, Oral, NIGHTLY AT BEDTIME PRN, Starting on Sat06/28/25 at 2033, Until Discontinued, insomniapantoprazole 40 mg injection (1 source)Proton Pump InhibitorStart: mg, Intravenous, DAILY AT 0600, First dose on Sat06/28/25 at 2114, Until Discontinued Problems Active Problems Problem ClassificationProblemDateDocumented DateEpisodic/ChronicCardiac dysrhythmias (20 sources)Sick sinus syndrome; Translations: [Sick sinus syndrome]Onset: 264154-34-9002GkssjqmUosnvtc kidney disease (20 sources)Chronic kidney disease, stage 2 (mild); Translations: [Chronic kidney disease stage 2]Onset: 064787-05-5672VmqpovmYtaozbaulx disorders (19 sources)First degree atrioventricular block; Translations: [Atrioventricular block, first degree]Onset: 374019-71-3259YaxeqztYwwhlerp atherosclerosis and other heart disease (20 sources)Coronary arteriosclerosis; Translations: [Atherosclerotic heart disease of [place] coronary artery without angina pectoris]Onset: 08-21-2021 30-45-8172XztaibgYklwsjbhd of lipid metabolism (20 sources)Mixed hyperlipidemia; Translations: [Mixed hyperlipidemia]Onset: 478023-99-2349QcrwjcsT Codes: Fall (4 sources)Fall; Translations: [Unspecified fall, initial encounter]Onset: 926212-77-1498WhltgvoeC Codes: Fall (5 sources)FallOnset: 853204-25-2708Rlbaymkrbp disorders (20 sources)Gastroesophageal reflux disease without esophagitis; Translations: [Gastro-esophageal reflux disease without esophagitis]Onset: 02-26-2023 46-37-0071NwtznwaLzcabylwa hypertension (20 sources)Essential hypertension; Translations: [Essential (primary) hypertension]Onset: 225095-88-8163CmnihxyEnakf and electrolyte disorders (3 sources)Hyponatremia; Translations: [Hypo-osmolality and hyponatremia]Onset: 552212-70-3205SlbfzlppLsgzgizl of neck of femur (hip) (20 sources)Closed fracture of hip; Translations: [Closed intertrochanteric fracture of left femur]Onset: 658419-46-2476XsklpsdiSkigf valve disorders (20 sources)Aortic incompetence, non-rheumatic ; Translations: [Nonrheumatic aortic (valve) insufficiency]Onset: 217925-99-1524LmqnecxSdrkt valve disorders (2 sources)Cardiac murmur, unspecified; Translations: [Cardiac murmur, unspecified]Onset: 24-26-0627YjfhjpgaOoeiffqylml of prostate (19 sources)Benign prostatic hyperplasia; Translations: [Nodular prostate without lower urinary tract symptoms]Onset: hronic Hypertension with complications and secondary hypertension (20 sources)Hypertensive chronic kidney disease with stage 1 through stage 4 chronic kidney disease, or unspecified chronic kidney disease; Translations: [Hypertensive renal disease]Onset: 24-72-4221UjuapxvJufscdcnnopkzt (20 sources)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; Translations: [Unilateral primary osteoarthritis of first carpometacarpal joint, right hand]Onset: 293233-39-5660PffscgvRwnhw hereditary and degenerative nervous system conditions (19 sources)Essential tremor; Translations: [Essential tremor]Onset: 02-26-2023 61-82-3458GymkikiPuzsp injuries and conditions due to external causes (2 sources)Contusion; Translations: [Other injury of unspecified body region, initial encounter]73-12-9323DwyvvghvIlfqv non-traumatic joint disorders (2 sources)Hip pain; Translations: [Pain in left hip]35-21-0185FtxtvaibDanuk screening for suspected conditions (not mental disorders or infectious disease) (3 sources)Encounter for screening for lipoid disorders; Translations: [Patient encounter status]Onset: 298822-79-2249IvjxuvgvEledhyzbgm and visceral atherosclerosis (19 sources)Renal artery stenosis; Translations: [Atherosclerosis of renal artery]Onset: 771040-30-9664LocjrlhQldpjsjxp heart disease (20 sources)Pulmonary hypertension; Translations: [Pulmonary hypertension, unspecified]Onset: 976903-13-4244VnaepmbPeaggpqb codes; unclassified (19 sources)Dependence on enabling machine or device; Translations: [Dependence on other enabling machines and devices]Onset: hronic Residual codes; unclassified (19 sources)Obstructive sleep apnea syndrome; Translations: [Obstructive sleep apnea (adult) (pediatric)]Onset: 641159-92-5244ViezmgbOpubgzzq codes; unclassified (19 sources)Insomnia; Translations: [Other insomnia]Onset: ChronicResidual codes; unclassified (2 sources)Active advance directive (copy within chart) ; Translations: [Other specified health status]35-95-5449WvprsjybNiobskzk codes; unclassified (4 sources)Postoperative state; Translations: [Other specified postprocedural states]08-48-0334WrxucocyMlhxhaeae and history of mental health and substance abuse codes (4 sources)Patient encounter status; Translations: [Encounter for screening examination for other mental health and behavioral disorders]87-13-6099Tiqpklwl Superficial injury; contusion (2 sources)Contusion of left lower leg, sequela; Translations: [Late effect of contusion]54-76-1293BhuppjbfPssepisslhqr (2 sources)Patient encounter -14-7381 Past or Other Problems Problem ClassificationProblemDateDocumented DateEpisodic/ChronicCardiac dysrhythmias (20 sources)Bradycardia; Translations: [Bradycardia, unspecified]Onset: 06-26-2021 Resolved: 246741-38-4014GaikppvdFkdyrrda mellitus without complication (19 sources)Hyperglycemia; Translations: [Impaired fasting glucose]Onset: 02-26-2023 Resolved: 584427-36-9196MnlawjkwBlkglkwvzompk symptoms and ill-defined conditions (20 sources)Microalbuminuria; Translations: [Proteinuria, unspecified]Onset: 703993-14-4268DvyzakklNvrp disorders (19 sources)Mood disordersOnset: 02-17-2024 Resolved: Other and unspecified benign neoplasm (19 sources)Polyp of colon; Translations: [Polyp of colon]Onset: 02-26-2023 89-77-5217SxtrevbmBuqrr connective tissue disease (19 sources)Cramp in lower limb; Translations: [Sleep related leg cramps]Onset: 02-26-2023 Resolved: 338915-12-5710UovxaayUdrph nutritional; endocrine; and metabolic disorders (20 sources)Overweight; Translations: [Overweight]Onset: EpisodicUnclassified (1 source)Closed intertrochanteric fracture of left -44-9774 Results Test NameValueInterpretationReference RangeFacilityBASIC METABOLIC PANELon 97-71-8907Anrmh gap [Moles/Vol]5 mmol/LAbnormal7-16[facility] Comment on above:Order Comment: KDIGO 2012 GFR Categories Stage Description eGFR (mL/min/1.73m2) G1 Normal or high >=90 G2 Mildly decreased 60-89 G3a Mildly to moderately decreased 45-59 G3b Moderately to severely decreased 30-44 G4 Severely decreased 15-29 G5 Kidney Failure <15Performed By: #### [id number] #### [facility] [address] [place] [address] USACalcium [Mass/Vol]8.4 mg/dLAbnormal8.6-10.2KKettering Health Main CampusComment on above:Order Comment: KDIGO 2012 GFR Categories Stage Description eGFR (mL/min/1.73m2) G1 Normal or high >=90 G2 Mildly decreased 60-89 G3a Mildly to moderately decreased 45-59 G3b Moderately to severely decreased 30-44 G4 Severely decreased 15-29 G5 Kidney Failure <15Performed By: #### [id number] #### [facility] [address] [place] [address] USAChloride [Moles/Vol]101 mmol/AQtmnhh56-801KkobspdvcCleveland Clinic Fairview HospitalComment on above:Order Comment: KDIGO 2012 GFR Categories Stage Description eGFR (mL/min/1.73m2) G1 Normal or high >=90 G2 Mildly decreased 60-89 G3a Mildly to moderately decreased 45-59 G3b Moderately to severely decreased 30-44 G4 Severely decreased 15-29 G5 Kidney Failure <15Performed By: #### [id number] #### [facility] [address] [place] [address] USACO2 [Moles/Vol]25 mmol/PMxdgng76-94RpyuamtyeCleveland Clinic Fairview HospitalComment on above:Order Comment: KDIGO 2012 GFR Categories Stage Description eGFR (mL/min/1.73m2) G1 Normal or high >=90 G2 Mildly decreased 60-89 G3a Mildly to moderately decreased 45-59 G3b Moderately to severely decreased 30-44 G4 Severely decreased 15-29 G5 Kidney Failure <15Performed By: #### [id number] #### [facility] [address] [place] [address] USACreatinine [Mass/Vol]1.03 mg/dLNormal0.7-1.3KKettering Health Main CampusComment on above:Order Comment: KDIGO 2012 GFR Categories Stage Description eGFR (mL/min/1.73m2) G1 Normal or high >=90 G2 Mildly decreased 60-89 G3a Mildly to moderately decreased 45-59 G3b Moderately to severely decreased 30-44 G4 Severely decreased 15-29 G5 Kidney Failure <15Performed By: #### [id number] #### [facility] [address] [place] [address] USAGFR/1.73 sq M.predicted among non-blacks MDRD (S/P/Bld) [Vol rate/Area]71 mL/min/{1.73_m2}Normal>90[facility] HospitalComment on above:Order Comment: KDIGO 2012 GFR Categories Stage Description eGFR (mL/min/1.73m2) G1 Normal or high >=90 G2 Mildly decreased 60-89 G3a Mildly to moderately decreased 45-59 G3b Moderately to severely decreased 30-44 G4 Severely decreased 15-29 G5 Kidney Failure <15Result Comment: Reported eGFR is based on the CKD-EPI 1 equation that does not use a race coefficient.Performed By: #### [id number] #### [facility] [address] [place] [address] USAGlucose [Mass/Vol]100 mg/lTTxtfxt96-629XphihdxazCleveland Clinic Fairview HospitalComment on above:Order Comment: KDIGO 2012 GFR Categories Stage Description eGFR (mL/min/1.73m2) G1 Normal or high >=90 G2 Mildly decreased 60-89 G3a Mildly to moderately decreased 45-59 G3b Moderately to severely decreased 30-44 G4 Severely decreased 15-29 G5 Kidney Failure <15Performed By: #### [id number] #### [facility] [address] [place] [address] USAPotassium [Moles/Vol]4.7 mmol/LNormal3.5-5.1KKettering Health Main CampusComment on above:Order Comment: KDIGO 2012 GFR Categories Stage Description eGFR (mL/min/1.73m2) G1 Normal or high >=90 G2 Mildly decreased 60-89 G3a Mildly to moderately decreased 45-59 G3b Moderately to severely decreased 30-44 G4 Severely decreased 15-29 G5 Kidney Failure <15Performed By: #### [id number] #### [facility] [address] [place] [address] USASodium [Moles/Vol]131 mmol/TKqlzggcm153-490Zbojnsehe Health NetworkComment on above:Order Comment: KDIGO 2012 GFR Categories Stage Description eGFR (mL/min/1.73m2) G1 Normal or high >=90 G2 Mildly decreased 60-89 G3a Mildly to moderately decreased 45-59 G3b Moderately to severely decreased 30-44 G4 Severely decreased 15-29 G5 Kidney Failure <15Performed By: #### [id number] #### [facility] [address] [place] [address] USAUrea nitrogen [Mass/Vol]17 mg/dLNormal7-25[facility] HospitalCommunson healthcare [facility] on above:Order Comment: KDIGO 2012 GFR Categories Stage Description eGFR (mL/min/1.73m2) G1 Normal or high >=90 G2 Mildly decreased 60-89 G3a Mildly to moderately decreased 45-59 G3b Moderately to severely decreased 30-44 G4 Severely decreased 15-29 G5 Kidney Failure <15Performed By: #### [id number] #### [facility] [address] [place] [address] USABasi Metabolic Panelon 33-12-1232Jxetc gap 4 (S/P/Bld) [Moles/Vol]5 mmol/LAbnormal7 - 16 mmol/LKettering HealthCalcium (Bld) [Mass/Vol] 8.4 mg/dLAbnormal8.6 - 10.2 mg/dLPremier Health Atrium Medical CenterChloride (S/P/Bld) [Moles/Vol] 101 mmol/L98 - 107 mmol/LKettering HealthCO2 (S/P/Bld) [Moles/Vol]25 mmol/L21 - 31 mmol/LKettering HealthCreatinine [Mass/Vol]1.03 mg/dL0.70 - 1.30 mg/dL [facility] Atrium Medical CenterGFR Male71- PINFPremier Health Atrium Medical CenterComment on above:Reported eGFR is based on the CKD-EPI 2020 equation that does not use a race coefficient. Glucose [Mass/Vol]100 mg/dL74 - 109 mg/dLPremier Health Atrium Medical CenterInterpretation and review of laboratory resultsAbnormalKbarberton citizens hospital HealthPotassium (S/P/Bld) [Moles/Vol]4.7 mmol/L3.5 - 5.1 mmol/LKettering HealthSodium (S/P/Bld) [Moles/Vol]131 mmol/PVkuztsww441 - 145 mmol/LKettering HealthUrea nitrogen [Mass/Vol]17 mg/dL7 - 25 mg/dLPremier Health Atrium Medical Center KDIGO 2012 GFR Categories Stage Description eGFR (mL/min/1.73m2) G1 Normal or high >=90 G2 Mildly decreased 60-89 G3a Mildly to moderately decreased 45-59 G3b Moderately to severely decreased 30-44 G4 Severely decreased 15-29 G5 Kidney Failure <15[facility] W/DIFFon 07-02-2025 Basophils (Bld) [#/Vol]0.1 10*3/uL0.0 - 0.1 K/uLPremier Health Atrium Medical CenterBasophils/100 WBC (Bld)1.3 %[facility] Medical CenterEosinophils (Bld) [#/Vol]0.5 10*3/uLAbnormal0.0 - 0.4 K/uLPremier Health Atrium Medical CenterEosinophils/100 WBC (Bld)7.3 %[facility] Erythrocyte distribution width (RBC) [Ratio]13.3 %11.7 - 15.2 %[facility] Hematocrit (Bld) [Volume fraction]23.4 %Gmgdzgkp03.0 - 51.5 %[facility] Hemoglobin (Bld) [Mass/Vol]8.4 g/aICyfjevbs88.1 - 17.6 g/dLPremier Health Atrium Medical Center Interpretation and review of laboratory resultsAbnormalKFairfield Medical Center Lymphocytes (Bld) [#/Vol]1.1 10*3/uL0.8 - 3.6 K/uLPremier Health Atrium Medical Center Lymphocytes/100 WBC (Bld)15.3 %[facility] HospitalH (RBC) [Entitic mass]34.3 pg Hwmkgkgq18.4 - 33.4 pgWestern Reserve HospitalHC (RBC) [Mass/Vol]35.7 g/dL31.1 - 37.0 g/dLWestern Reserve HospitalV (RBC) [Entitic vol]96.1 fL85.0 - 99.0 flPremier Health Atrium Medical Center Monocytes (Bld) [#/Vol]0.7 10*3/uL0.3 - 0.9 K/uLPremier Health Atrium Medical CenterMonocytes/100 WBC (Bld)9.9 %[facility] Medical CenterNeutrophils (Bld) [#/Vol]4.9 10*3/uL2.0 - 7.3 K/uL [facility] Medical CenterNeutrophils/100 WBC (Bld)66.2 %[facility] Medical CenterPlatelets (Bld) [#/Vol]248 10*3/uL154 - 393 K/uLPremier Health Atrium Medical CenterRBC (Bld) [#/Vol]2.44 10*6/uL AbnormalPremier Health Atrium Medical CenterWBC (Bld) [#/Vol]7.4 10*3/uL4.0 - 10.5 K/uLMemorial HospitalBASOPHILS ABS AUTO0.1 K/uLNormal0.0-0.1KKettering Health Main CampusComment on above:Performed By: #### [id number] #### [facility] [address] [place] [address] USABasophils/100 WBC (Bld)1.3 %NormalCleveland Clinic Fairview Hospital Comment on above:Performed By: #### [id number] #### [facility] [address] [place] [address] USAEosinophils (Bld) [#/Vol]0.5 10*3/uLAbnormal0.0-0.4 [facility] HospitalComment on above:Performed By: #### [id number] #### [facility] [address] [place] [address] USAEosinophils/100 WBC (Bld)7.3 %NormalCleveland Clinic Fairview HospitalComment on above:Performed By: #### [id number] #### [facility] [address] [place] [address] USAErythrocyte distribution width (RBC) [Ratio]13.3 %Normal 11.7-15.2KKettering Health Main CampusComment on above:Performed By: #### [id number] #### [facility] [address] [place] [address] USAHematocrit (Bld) [Volume fraction]23.4 %Qlodrcwr40.0-51.5 [facility] HospitalComment on above:Performed By: #### [id number] #### [facility] [address] [place] [address] USAHemoglobin (Bld) [Mass/Vol]8.4 g/nJKjwdsfra63.1-17.6 [facility] HospitalComment on above:Performed By: #### [id number] #### [facility] [address] [place] [address] USALymphocytes (Bld) [#/Vol]1.1 10*3/uLNormal0.8-3.6[facility] HospitalComment on above:Performed By: #### [id number] #### [facility] [address] [place] [address] USALymphocytes/100 WBC (Bld)15.3 %NormalCleveland Clinic Fairview HospitalComment on above:Performed By: #### [id number] #### [facility] [address] [place] [address] USAMCH (RBC) [Entitic mass]34.3 oyTgirhvme28.4-33.4[facility] HospitalComment on above:Performed By: #### [id number] #### [facility] [address] [place] [address] USAMCHC (RBC) [Mass/Vol]35.7 g/dPObeqhl21.1-37.0[facility] HospitalComment on above:Performed By: #### [id number] #### [facility] [address] [place] [address] USAMCV (RBC) [Entitic vol]96.1 qVWoddjr42.0-99.0[facility] NetworkComment on above:Performed By: #### [id number] #### [facility] [address] [place] [address] USAMonocytes (Bld) [#/Vol]0.7 10*3/uLNormal0.3-0.9[facility] HospitalComment on above:Performed By: #### [id number] #### [facility] [address] [place] [address] USAMonocytes/100 WBC (Bld)9.9 %[facility] Comment on above:Performed By: #### [id number] #### [facility] [address] [place] [address] USANEUTROPHIL ABS AUTO4.9 K/uLNormal2.0-7.3KKettering Health Main CampusComment on above:Performed By: #### [id number] #### [facility] [address] [place] [address] USANeutrophils/100 WBC (Bld)66.2 %[facility] DublinComment on above:Performed By: #### [id number] #### [facility] [address] [place] [address] USAPlatelets (Bld) [#/Vol]248 10*3/aABjaztc304-387Joadnuatu Health NetworkComment on above:Performed By: #### [id number] #### [facility] [address] [place] [address] USARBC (Bld) [#/Vol]2.44 10*6/uLAbnormal4.30-5.86[facility] NetworkComment on above:Performed By: #### [id number] #### [facility] [address] [place] [address] USAWBC (Bld) [#/Vol]7.4 10*3/uLNormal4.0-10.5[facility] HospitalComment on above:Performed By: #### [id number] #### [facility] [address] [place] [address] USABASIC METABOLIC PANELon 30-67-2207Hockl gap [Moles/Vol]5 mmol/LAbnormal7-16[facility] HospitalComment on above:Order Comment: KDIGO 2012 GFR Categories Stage Description eGFR (mL/min/1.73m2) G1 Normal or high >=90 G2 Mildly decreased 60-89 G3a Mildly to moderately decreased 45-59 G3b Moderately to severely decreased 30-44 G4 Severely decreased 15-29 G5 Kidney Failure <15Performed By: #### [id number] #### [facility] [address] [place] [address] USACalcium [Mass/Vol]8.0 mg/dLAbnormal8.6-10.2KKettering Health Main CampusComment on above:Order Comment: KDIGO 2012 GFR Categories Stage Description eGFR (mL/min/1.73m2) G1 Normal or high >=90 G2 Mildly decreased 60-89 G3a Mildly to moderately decreased 45-59 G3b Moderately to severely decreased 30-44 G4 Severely decreased 15-29 G5 Kidney Failure <15Performed By: #### [id number] #### [facility] [address] [place] [address] USAChloride [Moles/Vol]102 mmol/VTmzemz84-170CgxgrkiqqCleveland Clinic Fairview HospitalComment on above:Order Comment: KDIGO 2012 GFR Categories Stage Description eGFR (mL/min/1.73m2) G1 Normal or high >=90 G2 Mildly decreased 60-89 G3a Mildly to moderately decreased 45-59 G3b Moderately to severely decreased 30-44 G4 Severely decreased 15-29 G5 Kidney Failure <15Performed By: #### [id number] #### [facility] [address] [place] [address] USACO2 [Moles/Vol]24 mmol/XKamdoc97-91HvajmdobeCleveland Clinic Fairview HospitalComment on above:Order Comment: KDIGO 2012 GFR Categories Stage Description eGFR (mL/min/1.73m2) G1 Normal or high >=90 G2 Mildly decreased 60-89 G3a Mildly to moderately decreased 45-59 G3b Moderately to severely decreased 30-44 G4 Severely decreased 15-29 G5 Kidney Failure <15Performed By: #### [id number] #### [facility] [address] [place] [address] USACreatinine [Mass/Vol]1.25 mg/dLNormal0.7-1.3KKettering Health Main CampusComment on above:Order Comment: KDIGO 2012 GFR Categories Stage Description eGFR (mL/min/1.73m2) G1 Normal or high >=90 G2 Mildly decreased 60-89 G3a Mildly to moderately decreased 45-59 G3b Moderately to severely decreased 30-44 G4 Severely decreased 15-29 G5 Kidney Failure <15Performed By: #### [id number] #### [facility] [address] [place] [address] USAGFR/1.73 sq M.predicted among non-blacks MDRD (S/P/Bld) [Vol rate/Area]56 mL/min/{1.73_m2}Normal>90[facility] HospitalComment on above:Order Comment: KDIGO 2012 GFR Categories Stage Description eGFR (mL/min/1.73m2) G1 Normal or high >=90 G2 Mildly decreased 60-89 G3a Mildly to moderately decreased 45-59 G3b Moderately to severely decreased 30-44 G4 Severely decreased 15-29 G5 Kidney Failure <15Result Comment: Reported eGFR is based on the CKD-EPI 2021 equation that does not use a race coefficient.Performed By: #### [id number] #### [facility] [address] [place] [address] USAGlucose [Mass/Vol]95 mg/nMMiorhr27-368WjsihymulCleveland Clinic Fairview HospitalComment on above:Order Comment: KDIGO 2012 GFR Categories Stage Description eGFR (mL/min/1.73m2) G1 Normal or high >=90 G2 Mildly decreased 60-89 G3a Mildly to moderately decreased 45-59 G3b Moderately to severely decreased 30-44 G4 Severely decreased 15-29 G5 Kidney Failure <15Performed By: #### [id number] #### [facility] [address] [place] [address] USAPotassium [Moles/Vol]4.5 mmol/LNormal3.5-5.1KKettering Health Main CampusComment on above:Order Comment: KDIGO 2012 GFR Categories Stage Description eGFR (mL/min/1.73m2) G1 Normal or high >=90 G2 Mildly decreased 60-89 G3a Mildly to moderately decreased 45-59 G3b Moderately to severely decreased 30-44 G4 Severely decreased 15-29 G5 Kidney Failure <15Performed By: #### [id number] #### [facility] [address] [place] [address] USASodium [Moles/Vol]131 mmol/NWxjwbnby043-621Ihadncapq Health NetworkComment on above:Order Comment: KDIGO 2012 GFR Categories Stage Description eGFR (mL/min/1.73m2) G1 Normal or high >=90 G2 Mildly decreased 60-89 G3a Mildly to moderately decreased 45-59 G3b Moderately to severely decreased 30-44 G4 Severely decreased 15-29 G5 Kidney Failure <15Performed By: #### [id number] #### [facility] [address] [place] [address] USAUrea nitrogen [Mass/Vol]19 mg/dLNormal7-25[facility] HospitalComment on above:Order Comment: KDIGO 2012 GFR Categories Stage Description eGFR (mL/min/1.73m2) G1 Normal or high >=90 G2 Mildly decreased 60-89 G3a Mildly to moderately decreased 45-59 G3b Moderately to severely decreased 30-44 G4 Severely decreased 15-29 G5 Kidney Failure <15Performed By: #### [id number] #### [facility] [address] [place] [address] USABasic Metabolic Panelon 73-37-8469Tvngo gap 4 (S/P/Bld) [Moles/Vol]5 mmol/LAbnormal7 - 16 mmol/LKetteyampa valley medical center HealthCalcium (Bld) [Mass/Vol] 8.0 mg/dLAbnormal8.6 - 10.2 mg/dLFern Prairie HealthChloride (S/P/Bld) [Moles/Vol] 102 mmol/L98 - 107 mmol/LKettering HealthCO2 (S/P/Bld) [Moles/Vol]24 mmol/L21 - 31 mmol/LKettering HealthCreatinine [Mass/Vol]1.25 mg/dL0.70 - 1.30 mg/dL [facility] Male56- PINFKettering HealthComment on above:Reported eGFR is based on the CKD-EPI 2020 equation that does not use a race coefficient. Glucose [Mass/Vol]95 mg/dL74 - 109 mg/dLPremier Health Atrium Medical CenterInterpretation and review of laboratory resultsAbnoBrecksville VA / [facility]ille [facility] HealthPotassium (S/P/Bld) [Moles/Vol]4.5 mmol/L3.5 - 5.1 mmol/LKbarberton citizens hospital HealthSodium (S/P/Bld) [Moles/Vol]131 mmol/GFpakzeqv880 - 145 mmol/LKFairfield Medical CenterUrea nitrogen [Mass/Vol]19 mg/dL7 - 25 mg/dLPremier Health Atrium Medical Center KDIGO 2012 GFR Categories Stage Description eGFR (mL/min/1.73m2) G1 Normal or high >=90 G2 Mildly decreased 60-89 G3a Mildly to moderately decreased 45-59 G3b Moderately to severely decreased 30-44 G4 Severely decreased 15-29 G5 Kidney Failure <15[facility] W/DIFFon 07-01-2025 Basophils (Bld) [#/Vol]0.1 10*3/uL0.0 - 0.1 K/uLPremier Health Atrium Medical CenterBasophils/100 WBC (Bld)0.7 %[facility] Medical CenterEosinophils (Bld) [#/Vol]0.2 10*3/uL0.0 - 0.4 K/uL [facility] Medical CenterEosinophils/100 WBC (Bld)3.0 %[facility] Medical CenterErythrocyte distribution width (RBC) [Ratio]13.1 %11.7 - 15.2 %[facility] Medical CenterHematocrit (Bld) [Volume fraction]23.1 %Rtzowvng29.0 - 51.5 %[facility] Medical CenterHemoglobin (Bld) [Mass/Vol]8.0 g/tFFffyyzju59.1 - 17.6 g/dLPremier Health Atrium Medical CenterInterpretation and review of laboratory resultsAbAdena Fayette Medical CenterLymphocytes (Bld) [#/Vol]1.3 10*3/uL0.8 - 3.6 K/uLPremier Health Atrium Medical CenterLymphocytes/100 WBC (Bld)17.7 % [facility] Medical CenterMCH (RBC) [Entitic mass]33.6 aoSbycrwlv00.4 - 33.4 pgWestern Reserve HospitalHC (RBC) [Mass/Vol]34.5 g/dL31.1 - 37.0 g/dLWestern Reserve HospitalV (RBC) [Entitic vol]97.4 fL85.0 - 99.0 flPremier Health Atrium Medical CenterMonocytes (Bld) [#/Vol]0.8 10*3/uL0.3 - 0.9 K/[facility] CenterMonocytes/100 WBC (Bld)10.2 %[facility] Medical CenterNeutrophils (Bld) [#/Vol]5.0 10*3/uL2.0 - 7.3 K/uLPremier Health Atrium Medical Center Neutrophils/100 WBC (Bld)68.4 %[facility] Medical CenterPlatelets (Bld) [#/Vol]218 10*3/uL154 - 393 K/uLPremier Health Atrium Medical CenterRBC (Bld) [#/Vol]2.37 10*6/uLAbnormal [facility] Medical CenterWBC (Bld) [#/Vol]7.4 10*3/uL4.0 - 10.5 K/uLSheltering Arms Hospital HealthBASOPHILS ABS AUTO0.1 K/uLNormal0.0-0.1KKettering Health [facility] Campus Comment on above:Performed By: #### [id number] ####[facility] [id number] [place] [address] USABasophils/100 WBC (Bld)0.7 %[facility] DublinComment on above:Performed By: #### [id number] ####[facility] [address]NE[address] [place] [address] USAEosinophils (Bld) [#/Vol]0.2 10*3/uLNormal0.0-0.4[facility] HospitalComment on above:Performed By: #### [id number] ####[facility] [id number] [place] [address] [place] Eosinophils/100 WBC (Bld)3.0 %[facility] DublinComment on above: Performed By: #### [id number] ####[facility] [address] [place] [address] USAErythrocyte distribution width (RBC) [Ratio]13.1 % Djfwva93.7-15.2KKettering Health Main CampusComment on above:Performed By: #### [id number] ####[facility] [address]QT[address] [place] [address] [place] Hematocrit (Bld) [Volume fraction]23.1 %Arcoijzz97.0-51.5[facility] HospitalComment on above:Performed By: #### [id number] ####[facility] [address]TS[address] [place] [address] USAHemoglobin (Bld) [Mass/Vol]8.0 g/dL Elkvuync66.1-17.6[facility] HospitalComment on above:Performed By: #### [id number] ####[facility] [id number] [place] [address] [place] Lymphocytes (Bld) [#/Vol]1.3 10*3/uLNormal0.8-3.6[facility] HospitalComment on above:Performed By: #### [id number] ####[address] [address] USALymphocytes/100 WBC (Bld)17.7 %NormalCleveland Clinic Fairview HospitalComment on above:Performed By: #### [id number] ####[facility] [address] [place] [address] USAMCH (RBC) [Entitic mass]33.6 ybBzppctpu26.4-33.4[facility] HospitalComment on above:Performed By: #### [id number] ####[facility] [address] [place] [address] [place] MCHC (RBC) [Mass/Vol]34.5 g/qJJuutlw91.1-37.0[facility] HospitalComment on above:Performed By: #### [id number] ####[address] [place] [address] USAMCV (RBC) [Entitic vol]97.4 tRCgdzew48.0-99.0 [facility] HospitalComment on above:Performed By: #### [id number] ####[address] [place] [address] USAMonocytes (Bld) [#/Vol] 0.8 10*3/uLNormal0.3-0.9[facility] HospitalComment on above:Performed By: #### [id number] ####[facility] [address] [place] [address] USAMonocytes/100 WBC (Bld)10.2 %[facility] - DublinComment on above: Performed By: #### [id number] ####[facility] [id number] [place] [address] USANEUTROPHIL ABS AUTO5.0 K/uLNormal2.0-7.3KKettering Health Main CampusComment on above:Performed By: #### [id number] ####[facility] [id number] [place] [address] USANeutrophils/100 WBC (Bld)68.4 %NormalCleveland Clinic Fairview HospitalComment on above:Performed By: #### [id number] ####[address] [place] [address] USAPlatelets (Bld) [#/Vol]218 10*3/eKLtxkai126-063Feyfyspxr Health NetworkComment on above: Performed By: #### [id number] ####[facility] [id number] [place] [address] USARBC (Bld) [#/Vol]2.37 10*6/uLAbnormal4.30-5.86 [facility] HospitalComment on above:Performed By: #### [id number] ####[facility] [address] [place] [address] USAWBC (Bld) [#/Vol]7.4 10*3/uLNormal4.0-10.5[facility] HospitalComment on above:Performed By: #### [id number] ####[facility] [id number] [place] [address] [place] BASIC METABOLIC PANELon 99-05-8619Kilxo gap [Moles/Vol]5 mmol/LAbnormal7-16 [facility] HospitalComment on above:Order Comment: KDIGO 2012 GFR Categories Stage Description eGFR (mL/min/1.73m2) G1 Normal or high >=90 G2 Mildly decreased 60-89 G3a Mildly to moderately decreased 45-59 G3b Moderately to severely decreased 30-44 G4 Severely decreased 15-29 G5 Kidney Failure <15 Release to patient->ImmediatePerformed By: #### [id number] #### [facility] [address] [place] [address] USACalcium [Mass/Vol]8.0 mg/dLAbnormal8.6-10.2KKettering Health Main CampusComment on above:Order Comment: KDIGO 2012 GFR Categories Stage Description eGFR (mL/min/1.73m2) G1 Normal or high >=90 G2 Mildly decreased 60-89 G3a Mildly to moderately decreased 45-59 G3b Moderately to severely decreased 30-44 G4 Severely decreased 15-29 G5 Kidney Failure <15 Release to patient->ImmediatePerformed By: #### [id number] #### [facility] [address] [place] [address] USAChloride [Moles/Vol]100 mmol/YCrotdt60-265BxpvpuibgCleveland Clinic Fairview HospitalComment on above:Order Comment: KDIGO 2012 GFR Categories Stage Description eGFR (mL/min/1.73m2) G1 Normal or high >=90 G2 Mildly decreased 60-89 G3a Mildly to moderately decreased 45-59 G3b Moderately to severely decreased 30-44 G4 Severely decreased 15-29 G5 Kidney Failure <15 Release to patient->ImmediatePerformed By: #### LAB15 #### [facility] [address] [place] [address] USACO2 [Moles/Vol]24 mmol/PFqhgpk63-05NnqywjsrhCleveland Clinic Fairview HospitalComment on above:Order Comment: KDIGO 2012 GFR Categories Stage Description eGFR (mL/min/1.73m2) G1 Normal or high >=90 G2 Mildly decreased 60-89 G3a Mildly to moderately decreased 45-59 G3b Moderately to severely decreased 30-44 G4 Severely decreased 15-29 G5 Kidney Failure <15 Release to patient->ImmediatePerformed By: #### LAB15 #### [facility] [address] [place] [address] USACreatinine [Mass/Vol]1.48 mg/dLAbnormal0.7-1.3KKettering Health Main CampusComment on above:Order Comment: KDIGO 2012 GFR Categories Stage Description eGFR (mL/min/1.73m2) G1 Normal or high >=90 G2 Mildly decreased 60-89 G3a Mildly to moderately decreased 45-59 G3b Moderately to severely decreased 30-44 G4 Severely decreased 15-29 G5 Kidney Failure <15 Release to patient->ImmediatePerformed By: #### [id number] #### [facility] [address] [place] [address] USAGFR/1.73 sq M.predicted among non-blacks MDRD (S/P/Bld) [Vol rate/Area]46 mL/min/{1.73_m2}Normal>90C[facility] HospitalComment on above:Order Comment: KDIGO 2012 GFR [...] a race coefficient.Performed By: #### LAB15 #### [facility] [address] [place] [address] USAGlucose [Mass/Vol]99 mg/wNIoiiag06-664YwguufuoyCleveland Clinic Fairview HospitalComment on above:Order Comment: KDIGO 2012 GFR Categories Stage Description eGFR (mL/min/1.73m2) G1 Normal or high >=90 G2 Mildly decreased 60-89 G3a Mildly to moderately decreased 45-59 G3b Moderately to severely decreased 30-44 G4 Severely decreased 15-29 G5 Kidney Failure <15 Release to patient->ImmediatePerformed By: #### LAB15 #### [facility] [address] [place] [address] USAPotassium [Moles/Vol]4.6 mmol/LNormal3.5-5.1KKettering Health Main CampusComment on above:Order Comment: KDIGO 2012 GFR Categories Stage Description eGFR (mL/min/1.73m2) G1 Normal or high >=90 G2 Mildly decreased 60-89 G3a Mildly to moderately decreased 45-59 G3b Moderately to severely decreased 30-44 G4 Severely decreased 15-29 G5 Kidney Failure <15 Release to patient->ImmediatePerformed By: #### LAB15 #### [facility] [address] [place] [address] USASodium [Moles/Vol]129 mmol/FNuoggple378-677Thzissnbc Health NetworkComment on above:Order Comment: KDIGO 2012 GFR Categories Stage Description eGFR (mL/min/1.73m2) G1 Normal or high >=90 G2 Mildly decreased 60-89 G3a Mildly to moderately decreased 45-59 G3b Moderately to severely decreased 30-44 G4 Severely decreased 15-29 G5 Kidney Failure <15 Release to patient->ImmediatePerformed By: #### LAB15 #### [facility] [address] [place] [address] USAUrea nitrogen [Mass/Vol]16 mg/dLNormal7-25[facility] HospitalCommunson healthcare [facility] on above:Order Comment: KDIGO 2012 GFR Categories Stage Description eGFR (mL/min/1.73m2) G1 Normal or high >=90 G2 Mildly decreased 60-89 G3a Mildly to moderately decreased 45-59 G3b Moderately to severely decreased 30-44 G4 Severely decreased 15-29 G5 Kidney Failure <15 Release to patient->ImmediatePerformed By: #### [id number] #### [facility] [address] [place] [address] USABasic Metabolic PanelOrdered By: Background Lab on 74-82-7770Swcif gap 4 (S/P/Bld) [Moles/Vol]5 mmol/LAbnormal7 - 16 mmol/L [place] [facility] HealthCalcium (Bld) [Mass/Vol]8.0 mg/dLAbnormal8.6 - 10.2 mg/dL [place] HealthChloride (S/P/Bld) [Moles/Vol]100 mmol/L98 - 107 mmol/LKbarberton citizens hospital HealthCO2 (S/P/Bld) [Moles/Vol]24 mmol/L21 - 31 mmol/LKFairfield Medical Center Creatinine [Mass/Vol]1.48 mg/dLAbnormal0.70 - 1.30 mg/dLPremier Health Atrium Medical CenterGFR Male 46- PINFPremier Health Atrium Medical CenterCommunson healthcare [facility] on above:Reported eGFR is based on the CKD-EPI 2020 equation that does not use a race coefficient.Glucose [Mass/Vol]99 mg/dL74 - 109 mg/dLPremier Health Atrium Medical CenterInterpretation and review of laboratory results AbnormalFern Prairie HealthPotassium (S/P/Bld) [Moles/Vol]4.6 mmol/L3.5 - 5.1 mmol/LKettering HealthSodium (S/P/Bld) [Moles/Vol]129 mmol/XZbwtumgy771 - 145 mmol/LKottawa county health centerring HealthUrea nitrogen [Mass/Vol]16 mg/dL7 - 25 mg/dLBethesda North HospitalIGO 2012 GFR Categories Stage Description eGFR (mL/min/1.73m2) G1 Normal or high >=90 G2 Mildly decreased 60-89 G3a Mildly to moderately decreased 45-59 G3b Moderately to severely decreased 30-44 G4 Severely decreased 15-29 G5 Kidney Failure <15[facility] W/DIFFon 06-29-2025 BASOPHILS ABS AUTO0.1 K/uLNormal0.0-0.1KKettering Health Main CampusComment on above: Order Comment: Release to patient->ImmediatePerformed By: #### [id number] #### [facility] [address] [place] [address] USABasophils/100 WBC (Bld)0.8 %[facility] Comment on above:Order Comment: Release to patient->ImmediatePerformed By: #### [id number] #### [facility] [address] [place] [address] USAEosinophils (Bld) [#/Vol]0.2 10*3/uLNormal0.0-0.4[facility] HospitalComment on above:Order Comment: Release to patient->Immediate Performed By: #### [id number] #### [facility] [address] [place] [address] USAEosinophils/100 WBC (Bld)1.6 %[facility] DublinComment on above:Order Comment: Release to patient->ImmediatePerformed By: #### [id number] #### [facility] [address] [place] [address] USAErythrocyte distribution width (RBC) [Ratio]13.3 %Normal 11.7-15.2KKettering Health Main CampusComment on above:Order Comment: Release to patient->ImmediatePerformed By: #### [id number] #### [facility] [address] [place] [address] USAHematocrit (Bld) [Volume fraction]31.2 %Kxkwmzmn85.0-51.5 [facility] HospitalComment on above:Order Comment: Release to patient->ImmediatePerformed By: #### [id number] #### [facility] [address] [place] [address] USAHemoglobin (Bld) [Mass/Vol]10.7 g/hELfcoppkf29.1-17.6 [facility] on above:Order Comment: Release to patient->ImmediatePerformed By: #### [id number] #### [facility] [address] [place] [address] USALymphocytes (Bld) [#/Vol]1.2 10*3/uLNormal0.8-3.6[facility] on above:Order Comment: Release to patient->Immediate Performed By: #### [id number] #### [facility] [address] [place] [address] USALymphocytes/100 WBC (Bld)12.5 %NormalMercy Health Anderson Hospital on above:Order Comment: Release to patient->ImmediatePerformed By: #### [id number] #### [facility] [address] [place] [address] USAMCH (RBC) [Entitic mass]33.4 keNpzafz08.4-33.4[facility] on above:Order Comment: Release to patient->Immediate Performed By: #### [id number] #### [facility] [address] [place] [address] USAMCHC (RBC) [Mass/Vol]34.2 g/tERswrop13.1-37.0[facility] on above:Order Comment: Release to patient->Immediate Performed By: #### [id number] #### [facility] [address] [place] [address] USAMCV (RBC) [Entitic vol]97.7 dRZonawu46.0-99.0[facility] on above:Order Comment: Release to patient->Immediate Performed By: #### [id number] #### [facility] [address] [place] [address] USAMonocytes (Bld) [#/Vol]0.8 10*3/uLNormal0.3-0.9[facility] HospitalComment on above:Order Comment: Release to patient->Immediate Performed By: #### [id number] #### [facility] [address] [place] [address] USAMonocytes/100 WBC (Bld)7.8 %[facility] Comment on above:Order Comment: Release to patient->ImmediatePerformed By: #### [id number] #### [facility] [address] [place] [address] USANEUTROPHIL ABS AUTO7.5 K/uLAbnormal2.0-7.3KKettering Health Main CampusComment on above:Order Comment: Release to patient->ImmediatePerformed By: #### [id number] #### [facility] [address] [place] [address] USANeutrophils/100 WBC (Bld)77.3 %[facility] DublinComment on above:Order Comment: Release to patient->ImmediatePerformed By: #### [id number] #### [facility] [address] [place] [address] USAPlatelets (Bld) [#/Vol]264 10*3/vLPyhjtw834-702Yztifvizu Health NetworkComment on above:Order Comment: Release to patient->Immediate Performed By: #### [id number] #### [facility] [address] [place] [address] USARBC (Bld) [#/Vol]3.20 10*6/uLAbnormal4.30-5.86C[facility]view HospitalComment on above:Order Comment: Release to patient->Immediate Performed By: #### [id number] #### [facility] [address] [place] [address] USAWBC (Bld) [#/Vol]9.7 10*3/uLNormal4.0-10.5[facility] HospitalComment on above:Order Comment: Release to patient->ImmediatePerformed By: #### [id number] #### [facility] [address] [place] [address] USACBC w/ Diff-Complete Blood Counton 37-80-8453Vlovgufpd (Bld) [#/Vol]0.1 10*3/uL0.0 - 0.1 K/uLPremier Health Atrium Medical CenterBasophils/100 WBC (Bld)0.8 %[facility] Medical CenterEosinophils (Bld) [#/Vol]0.2 10*3/uL0.0 - 0.4 K/uLPremier Health Atrium Medical CenterEosinophils/100 WBC (Bld)1.6 %[facility] Medical CenterErythrocyte distribution width (RBC) [Ratio]13.3 %11.7 - 15.2 %[facility] Medical CenterHematocrit (Bld) [Volume fraction]31.2 %Wulrxbqn96.0 - 51.5 %[facility] Medical CenterHemoglobin (Bld) [Mass/Vol] 10.7 g/xTNbcrmxtu63.1 - 17.6 g/dLPremier Health Atrium Medical CenterInterpretation and review of laboratory resultsAbnormalKFairfield Medical CenterLymphocytes (Bld) [#/Vol]1.2 10*3/uL 0.8 - 3.6 K/uLPremier Health Atrium Medical CenterLymphocytes/100 WBC (Bld)12.5 %[facility] HospitalH (RBC) [Entitic mass]33.4 pg28.4 - 33.4 pgWestern Reserve HospitalHC (RBC) [Mass/Vol] 34.2 g/dL31.1 - 37.0 g/dLWestern Reserve HospitalV (RBC) [Entitic vol]97.7 fL85.0 - 99.0 flPremier Health Atrium Medical CenterMonocytes (Bld) [#/Vol]0.8 10*3/uL0.3 - 0.9 K/uLPremier Health Atrium Medical CenterMonocytes/100 WBC (Bld)7.8 %[facility] Medical CenterNeutrophils (Bld) [#/Vol]7.5 10*3/uLAbnormal2.0 - 7.3 K/uLPremier Health Atrium Medical CenterNeutrophils/100 WBC (Bld)77.3 % [facility] Medical CenterPlatelets (Bld) [#/Vol]264 10*3/uL154 - 393 K/[facility] RBC (Bld) [#/Vol]3.20 10*6/uLAbnormalKFairfield Medical CenterWBC (Bld) [#/Vol]9.7 10*3/uL4.0 - 10.5 K/[facility] 06-29-2025 ConsultsEncounter Department: [facility] ACUTE CARE ORTHOPEDICS 4 MAIN Consults by Eduardo Mortensen DO at 06/29/2025 10:06 AM Author: Yordan Manzanorvice: OrthopedicsAuthor Type: Physician Filed: 06/29/2025 10:09 AMDate of Service: 06/29/2025 10:06 AMStatus: Signed Surgery Specialist: Eduardo Mortensen DO (Physician) Consult Orders 1. IP Consult to Orthopedic Surgery [[id number]] ordered by EMELIA Santana at 06/28/252038 2. ED Contact Order [[id number]] ordered by Ramez Denney DO at 06/28/252022 Orthopedic Consult Note: Chief Complaint: I fell and hurt my hip History of Present Illness: Patient is an 84-year-old who fell at [facility] last night when he was getting up [...] Social Drivers of Health Received from [facility] Safety AND Environment History reviewed. No pertinent family history. Imaging: Results for orders placed or performed during the hospital encounter of 06/28/25 XR-HIP UNI LEFT 2/3 VIEWS W/PELVIS Narrative EXAM: XR-HIP UNI LEFT 2/3 VIEWS W/PELVIS [id number] DATE OF SERVICE: 06/28/2025 7:56 pm DEMOGRAPHICS: [...] Saeed DO, 06/28/2025 8:16 PM Dictation workstation: [id number] CT-HEAD W/O CONTRAST Narrative EXAM: CT-HEAD W/O CONTRAST [id number] DATE OF SERVICE: 06/28/2025 7:37 pm DEMOGRAPHICS: [...] Pelaez MD, 06/28/2025 7:55 PM Dictation workstation: [id number] CT-SPINE CERVICAL WO CONTRAST Narrative EXAM: CT-SPINE CE (more content not included)...[facility] - DublinOp Noteon [id number] NoteEncounter Department: [facility] SURGERY Op Note by So Ramsey DO at 06/29/2025 4:25 PM Author: Yordan Davalosrvice: OrthopedicsAuthor Type: Physician Filed: 06/29/2025 4:46 PMDate of Service: 06/29/2025 4:25 PMStatus: Signed Surgery Specialist: So Ramsey DO (Physician) ORTHOPEDIC OPERATIVE NOTE Name: Joo Allen : 1940 CSN: [id number] Surgeon: So Ramsey DO, DO Facility: [facility] Date of Surgery: 06/28/2025 SURGEON: So Ramsey DO PREOP DX: Comminuted left peritrochanteric femur fracture POSTOP DX: Same PROCEDURES: ORIF of left peritrochanteric femur fracture with long cephalomedullary nail PHARMACIST MANAGER: None COMPLICATIONS: None ANESTHESIA: General EBL: 200 [...] to bear weight. He was brought to [facility] where x-rays of the left hip were [...] traction boots and transferred over to the Fortine traction table and placed in the supine [...] line. An additional K (more content not included)...[facility] DublinTYPE AND SCREENon [id number]ealth Riverside Methodist HospitalComment on above:Order Comment: Release to patient->ImmediatePerformed By: #### [id number] #### [address] Nom (Bld)Riddle HospitalComment on above:Order Comment: Release to patient->ImmediatePerformed By: #### [id number] #### [place] [address] USAType and Screenon [id number] HealthRh Nom (Bld)[facility] Hip - left Single viewon 29-14-8054Ozkahipqtcefhs fluoroscopy for guidance and documentation and performing [...] Deleon DO, 06/29/2025 5:30 PM Dictation workstation: [id number] FLUENCY IMAGINGEXAM: XR-HIP LEFT 1 VIEW WO/ PELVIS [id number] DATE OF SERVICE: 06/29/2025 3:52 pm DEMOGRAPHICS: Age: 84 y/o M HISTORY: Gamma nail COMPARISON: Radiographs of the left hip from 06/28/2025. TECHNIQUE: A total of 9 intraoperative fluoroscopic views of the left hip were obtained. Total Images: 9 FINDINGS: Intraoperative fluoroscopy was utilized for guidance and documentation and performing ORIF of a comminuted intertrochanteric fracture of the proximal left femur. TIFFANIE GIVENSJose Enriquebrittany Leonard Farrell STEPHANIE, DO - 06/29/2025 EXAM: XR-HIP LEFT 1 VIEW WO/ PELVIS [id number] DATE OF SERVICE: 06/29/2025 3:52 pm DEMOGRAPHICS: [...] Deleon DO, 06/29/2025 5:30 PM Dictation workstation: [id number] [facility] Medical CenterRadiology Study observation (narrative)[facility] Hip - left Single viewOrdered By: Leonard Deleon on 77-80-0098Txjditiwp Health Work Phone: [phone]-BHC LEFT 1 VIEW WO/ PELVISon [id number]-HIP LEFT 1 VIEW WO/ PELVISEXAM: XR-HIP LEFT 1 VIEW WO/ PELVIS [id number] DATE OF SERVICE: 06/29/2025 3:52 pm DEMOGRAPHICS: [...] Deleon DO, 06/29/2025 5:30 PM Dictation workstation: [id number] Medical [facility]on W/DIFFon [id number] ABS AUTO0.1 K/uLNormal0.0-0.1KKettering Health Main CampusComment on above:Order Comment: Release to patient->ImmediatePerformed By: #### [id number], [id number] #### [facility] [address] [place] [address] USABasophils/100 WBC (Bld)1.0 %[facility] Comment on above:Order Comment: Release to patient->ImmediatePerformed By: #### [id number], [id number] #### [facility] [address] [place] [address] USAEosinophils (Bld) [#/Vol]0.3 10*3/uLNormal0.0-0.4[facility] HospitalComment on above:Order Comment: Release to patient->Immediate Performed By: #### [id number], [id number] #### [facility] [address] [place] [address] USAEosinophils/100 WBC (Bld)4.7 %NormalCleveland Clinic Fairview HospitalComment on above:Order Comment: Release to patient->ImmediatePerformed By: #### [id number], [id number] #### [facility] [address] [place] [address] USAErythrocyte distribution width (RBC) [Ratio]13.2 %Normal 11.7-15.2KKettering Health Main CampusComment on above:Order Comment: Release to patient->ImmediatePerformed By: #### [id number], [id number] #### [facility] [address] [place] [address] USAHematocrit (Bld) [Volume fraction]37.5 %Uddhwpnx65.0-51.5 [facility] HospitalComment on above:Order Comment: Release to patient->ImmediatePerformed By: #### [id number], [id number] #### [facility] [address] [place] [address] USAHemoglobin (Bld) [Mass/Vol]13.3 g/tMVyavvr86.1-17.6 [facility] Campusment on above:Order Comment: Release to patient->ImmediatePerformed By: #### [id number], [id number] #### [facility] [address] [place] [address] USALymphocytes (Bld) [#/Vol]1.4 10*3/uLNormal0.8-3.6[facility] HospitalComment on above:Order Comment: Release to patient->Immediate Performed By: #### [id number], [id number] #### [facility] [address] [place] [address] USALymphocytes/100 WBC (Bld)22.6 %NormalCleveland Clinic Fairview HospitalCommunson healthcare [facility] on above:Order Comment: Release to patient->ImmediatePerformed By: #### [id number], [id number] #### [facility] [address] [place] [address] USAMCH (RBC) [Entitic mass]34.6 fpZccipqhw06.4-33.4[facility] HospitalComment on above:Order Comment: Release to patient->Immediate Performed By: #### [id number], [id number] #### [facility] [address] [place] [address] USAMCHC (RBC) [Mass/Vol]35.6 g/gSGnlrej15.1-37.0[facility] HospitalComment on above:Order Comment: Release to patient->Immediate Performed By: #### [id number], [id number] #### [facility] [address] [place] [address] USAMCV (RBC) [Entitic vol]97.2 oFGxtjce66.0-99.0[facility] HospitalComment on above:Order Comment: Release to patient->Immediate Performed By: #### [id number], [id number] #### [facility] [address] [place] [address] USAMonocytes (Bld) [#/Vol]0.5 10*3/uLNormal0.3-0.9[facility] HospitalComment on above:Order Comment: Release to patient->Immediate Performed By: #### [id number], [id number] #### [facility] [address] [place] [address] USAMonocytes/100 WBC (Bld)7.8 %[facility] Comment on above:Order Comment: Release to patient->ImmediatePerformed By: #### [id number], [id number] #### [facility] [address] [place] [address] USANEUTROPHIL ABS AUTO4.0 K/uLNormal2.0-7.3KKettering Health Main CampusComment on above:Order Comment: Release to patient->ImmediatePerformed By: #### [id number], [id number] #### [facility] [address] [place] [address] USANeutrophils/100 WBC (Bld)63.9 %[facility] - DublinComment on above:Order Comment: Release to patient->ImmediatePerformed By: #### [id number], [id number] #### [facility] [address] [place] [address] USAPlatelets (Bld) [#/Vol]207 10*3/yKUtwocc548-599Pfalvsuss Health NetworkComment on above:Order Comment: Release to patient->Immediate Result Comment: RPerformed By: #### [id number], [id number] #### [facility] [address] [place] [address] USARBC (Bld) [#/Vol]3.86 10*6/uLAbnormal4.30-5.86[facility] HospitalComment on above:Order Comment: Release to patient->Immediate Performed By: #### [id number], [id number] #### [facility] [address] [place] [address] USAWBC (Bld) [#/Vol]6.2 10*3/uLNormal4.0-10.5[facility] HospitalComment on above:Order Comment: Release to patient->ImmediatePerformed By: #### [id number], [id number] #### [facility] [address] [place] [address] USACBC w/ Diffon 70-82-2629Sughyfyoe (Bld) [#/Vol]0.1 10*3/uL 0.0 - 0.1 K/uLPremier Health Atrium Medical CenterBasophils/100 WBC (Bld)1.0 %[facility] Eosinophils (Bld) [#/Vol]0.3 10*3/uL0.0 - 0.4 K/uLPremier Health Atrium Medical Center Eosinophils/100 WBC (Bld)4.7 %[facility] Medical CenterErythrocyte distribution width (RBC) [Ratio]13.2 %11.7 - 15.2 %[facility] Medical CenterHematocrit (Bld) [Volume fraction]37.5 %Boubhgqn30.0 - 51.5 %[facility] Medical CenterHemoglobin (Bld) [Mass/Vol] 13.3 g/dL13.1 - 17.6 g/dLPremier Health Atrium Medical CenterInterpretation and review of laboratory resultsAbnormalKetteyampa valley medical center HealthLymphocytes (Bld) [#/Vol]1.4 10*3/uL0.8 - 3.6 K/uLPremier Health Atrium Medical CenterLymphocytes/100 WBC (Bld)22.6 %[facility] HospitalH (RBC) [Entitic mass]34.6 abVfwgwpqc46.4 - 33.4 pgWestern Reserve HospitalHC (RBC) [Mass/Vol] 35.6 g/dL31.1 - 37.0 g/dLWestern Reserve HospitalV (RBC) [Entitic vol]97.2 fL85.0 - 99.0 flPremier Health Atrium Medical CenterMonocytes (Bld) [#/Vol]0.5 10*3/uL0.3 - 0.9 K/uLPremier Health Atrium Medical CenterMonocytes/100 WBC (Bld)7.8 %[facility] HealthNeutrophils (Bld) [#/Vol]4.0 10*3/uL2.0 - 7.3 K/[facility] Medical CenterNeutrophils/100 WBC (Bld)63.9 %[facility]rium Medical CenterPlatelets (Bld) [#/Vol]207 10*3/uL154 - 393 [facility] Medical CenterComment on above:RRBC (Bld) [#/Vol]3.86 10*6/uLAbnormalKettering HealthWBC (Bld) [#/Vol] 6.2 10*3/uL4.0 - 10.5 [facility] City HospitalPREHENSIVE METABOLIC PANELon 20-29-5902Dfxoame [Mass/Vol]4.1 g/dLNormal3.5-5.7[facility] HospitalComment on above:Order Comment: KDIGO 2012 GFR Categories Stage Description eGFR (mL/min/1.73m2) G1 Normal or high >=90 G2 Mildly decreased 60-89 G3a Mildly to moderately decreased 45-59 G3b Moderately to severely decreased 30-44 G4 Severely decreased 15-29 G5 Kidney Failure <15 Release to patient->ImmediatePerformed By: #### [id number] #### [facility] [address] [place] [address] USAAlbumin/Globulin [Mass ratio]1.6 {ratio}Normal1.0-2.0 [facility] HospitalComment on above:Order Comment: IGO 2012 GFR Categories Stage Description eGFR (mL/min/1.73m2) G1 Normal or high >=90 G2 Mildly decreased 60-89 G3a Mildly to moderately decreased 45-59 G3b Moderately to severely decreased 30-44 G4 Severely decreased 15-29 G5 Kidney Failure <15 Release to patient->ImmediatePerformed By: #### [id number] #### [facility] [address] [place] [address] USAALP [Catalytic activity/Vol]82 U/BYvvqnh66-050WawejsuflCleveland Clinic Fairview HospitalCommunson healthcare [facility] on above:Order Comment: KDIGO 2012 GFR Categories Stage Description eGFR (mL/min/1.73m2) G1 Normal or high >=90 G2 Mildly decreased 60-89 G3a Mildly to moderately decreased 45-59 G3b Moderately to severely decreased 30-44 G4 Severely decreased 15-29 G5 Kidney Failure <15 Release to patient->ImmediatePerformed By: #### [id number] #### [facility] [address] [place] [address] USAALT [Catalytic activity/Vol]18 U/LNormal7-52[facility] HospitalComment on above:Order Comment: KDIGO 2012 GFR Categories Stage Description eGFR (mL/min/1.73m2) G1 Normal or high >=90 G2 Mildly decreased 60-89 G3a Mildly to moderately decreased 45-59 G3b Moderately to severely decreased 30-44 G4 Severely decreased 15-29 G5 Kidney Failure <15 Release to patient->ImmediatePerformed By: #### [id number] #### [facility] [address] [place] [address] USAAnion gap [Moles/Vol]9 mmol/LNormal7-16[facility] HospitalComment on above:Order Comment: KDIGO 2012 GFR Categories Stage Description eGFR (mL/min/1.73m2) G1 Normal or high >=90 G2 Mildly decreased 60-89 G3a Mildly to moderately decreased 45-59 G3b Moderately to severely decreased 30-44 G4 Severely decreased 15-29 G5 Kidney Failure <15 Release to patient->ImmediatePerformed By: #### [id number] #### [facility] [address] [place] [address] USAAST [Catalytic activity/Vol]38 U/PMckyfl93-85ZjkpbmdmzCleveland Clinic Fairview HospitalComment on above:Order Comment: KDIGO 2012 GFR Categories Stage Description eGFR (mL/min/1.73m2) G1 Normal or high >=90 G2 Mildly decreased 60-89 G3a Mildly to moderately decreased 45-59 G3b Moderately to severely decreased 30-44 G4 Severely decreased 15-29 G5 Kidney Failure <15 Release to patient->ImmediatePerformed By: #### [id number] #### [facility] [address] [place] [address] USABilirubin [Mass/Vol]0.6 mg/dLNormal0.3-1.0[facility] HospitalComment on above:Order Comment: KDIGO 2012 GFR Categories Stage Description eGFR (mL/min/1.73m2) G1 Normal or high >=90 G2 Mildly decreased 60-89 G3a Mildly to moderately decreased 45-59 G3b Moderately to severely decreased 30-44 G4 Severely decreased 15-29 G5 Kidney Failure <15 Release to patient->ImmediatePerformed By: #### [id number] #### [facility] [address] [place] [address] USACalcium [Mass/Vol]8.5 mg/dLAbnormal8.6-10.2KKettering Health Main CampusComment on above:Order Comment: KDIGO 2012 GFR Categories Stage Description eGFR (mL/min/1.73m2) G1 Normal or high >=90 G2 Mildly decreased 60-89 G3a Mildly to moderately decreased 45-59 G3b Moderately to severely decreased 30-44 G4 Severely decreased 15-29 G5 Kidney Failure <15 Release to patient->ImmediatePerformed By: #### [id number] #### [facility] [address] [place] [address] USAChloride [Moles/Vol]98 mmol/NNjmurw12-227BwuperiiiCleveland Clinic Fairview HospitalComment on above:Order Comment: KDIGO 2012 GFR Categories Stage Description eGFR (mL/min/1.73m2) G1 Normal or high >=90 G2 Mildly decreased 60-89 G3a Mildly to moderately decreased 45-59 G3b Moderately to severely decreased 30-44 G4 Severely decreased 15-29 G5 Kidney Failure <15 Release to patient->ImmediatePerformed By: #### [id number] #### [facility] [address] [place] [address] USACO2 [Moles/Vol]20 mmol/MGdlharjy86-99PcrzchpheCleveland Clinic Fairview HospitalComment on above:Order Comment: KDIGO 2012 GFR Categories Stage Description eGFR (mL/min/1.73m2) G1 Normal or high >=90 G2 Mildly decreased 60-89 G3a Mildly to moderately decreased 45-59 G3b Moderately to severely decreased 30-44 G4 Severely decreased 15-29 G5 Kidney Failure <15 Release to patient->ImmediatePerformed By: #### [id number] #### [facility] [address] [place] [address] USACreatinine [Mass/Vol]1.12 mg/dLNormal0.7-1.3KKettering Health Main CampusComment on above:Order Comment: KDIGO 2012 GFR Categories Stage Description eGFR (mL/min/1.73m2) G1 Normal or high >=90 G2 Mildly decreased 60-89 G3a Mildly to moderately decreased 45-59 G3b Moderately to severely decreased 30-44 G4 Severely decreased 15-29 G5 Kidney Failure <15 Release to patient->ImmediatePerformed By: #### [id number] #### [facility] [address] [place] [address] USAGFR/1.73 sq M.predicted among non-blacks MDRD (S/P/Bld) [Vol rate/Area]64 mL/min/{1.73_m2}Normal>90C[facility] HospitalComment on above:Order Comment: KDIGO 2012 GFR [...] a race coefficient.Performed By: #### LAB17 #### [facility] [address] [place] [address] USAGlobulin (S) [Mass/Vol]2.6 g/dLNormal2.6-4.2KKettering Health Main CampusComment on above:Order Comment: KDIGO 2012 GFR Categories Stage Description eGFR (mL/min/1.73m2) G1 Normal or high >=90 G2 Mildly decreased 60-89 G3a Mildly to moderately decreased 45-59 G3b Moderately to severely decreased 30-44 G4 Severely decreased 15-29 G5 Kidney Failure <15 Release to patient->ImmediatePerformed By: #### LAB17 #### [facility] [address] [place] [address] USAGlucose [Mass/Vol]221 mg/dIMmsrvzjz91-248Jplknrwaa Health NetworkComment on above:Order Comment: KDIGO 2012 GFR Categories Stage Description eGFR (mL/min/1.73m2) G1 Normal or high >=90 G2 Mildly decreased 60-89 G3a Mildly to moderately decreased 45-59 G3b Moderately to severely decreased 30-44 G4 Severely decreased 15-29 G5 Kidney Failure <15 Release to patient->ImmediatePerformed By: #### LAB17 #### [facility] [address] [place] [address] USAPotassium [Moles/Vol]5.2 mmol/LAbnormal3.5-5.1KKettering Health Main CampusComment on above:Order Comment: KDIGO 2012 GFR Categories [...] ordering physician. Performed By: #### [id number] #### [facility] [address] [place] [address] USAProtein [Mass/Vol]6.7 g/dLNormal6.0-8.3KKettering Health Main CampusComment on above:Order Comment: KDIGO 2012 GFR Categories Stage Description eGFR (mL/min/1.73m2) G1 Normal or high >=90 G2 Mildly decreased 60-89 G3a Mildly to moderately decreased 45-59 G3b Moderately to severely decreased 30-44 G4 Severely decreased 15-29 G5 Kidney Failure <15 Release to patient->ImmediatePerformed By: #### LAB17 #### [facility] [address] [place] [address] USASodium [Moles/Vol]127 mmol/NIahfusph261-941Ujsrrtftq Health NetworkComment on above:Order Comment: KDIGO 2012 GFR Categories Stage Description eGFR (mL/min/1.73m2) G1 Normal or high >=90 G2 Mildly decreased 60-89 G3a Mildly to moderately decreased 45-59 G3b Moderately to severely decreased 30-44 G4 Severely decreased 15-29 G5 Kidney Failure <15 Release to patient->ImmediatePerformed By: #### LAB17 #### [facility] [address] [place] [address] USAUrea nitrogen [Mass/Vol]11 mg/dLNormal7-25[facility] HospitalComment on above:Order Comment: KDIGO 2012 GFR Categories Stage Description eGFR (mL/min/1.73m2) G1 Normal or high >=90 G2 Mildly decreased 60-89 G3a Mildly to moderately decreased 45-59 G3b Moderately to severely decreased 30-44 G4 Severely decreased 15-29 G5 Kidney Failure <15 Release to patient->ImmediatePerformed By: #### [id number] #### [facility] [address] [place] [address] USACT Cervical spine WO contraston . No [...] Covarrubias MD, 06/28/2025 8:03 PM Dictation workstation: [id number] [employer] IMAGINGEXAM: CT-SPINE CERVICAL WO CONTRAST [id number] DATE OF SERVICE: 06/28/2025 7:37 pm DEMOGRAPHICS: [...] osteophyte complexes at C3-4, C4-5, and C6-7. Fjac-tk-parosfqp central canal stenosis at C5-6. Multilevel foraminal stenosis is seen secondary to uncovertebral osteophytosis and facet arthropathy which is advanced at multiple levels. Marlon Vallejo MD - 06/28/2025 EXAM: CT-SPINE CERVICAL WO CONTRAST [id number] DATE OF SERVICE: 06/28/2025 7:37 pm DEMOGRAPHICS: [...] osteophyte complexes at C3-4, C4-5, and C6-7. Yspm-hz-byhticoz central canal stenosis at C5-6. Multilevel foraminal [...] phrases or sentences. Electronically Signed by: Marlon Cvoarrubias MD, 06/28/2025 8:03 PM Dictation workstation: [id number] [facility] Cervical spine WO contrastOrdered By: Marlon Covarrubias on 69-60-6826Afectiwaa Health Work Phone: CT Head WO contraston . Minimal [...] Pelaez MD, 06/28/2025 7:55 PM Dictation workstation: [id number] [employer] IMAGINGEXAM: CT-HEAD W/O CONTRAST [id number] DATE OF SERVICE: 06/28/2025 7:37 pm DEMOGRAPHICS: [...] There is no parenchymal or extra-axial hematoma. [facility] MERLYN IMAGINGWekadlec regional medical [facility], Abdulkadir Nunez MD - 06/28/2025 EXAM: CT-HEAD W/O CONTRAST [id number] DATE OF SERVICE: 06/28/2025 7:37 pm DEMOGRAPHICS: [...] Pelaez MD, 06/28/2025 7:55 PM Dictation workstation: [id number] [facility] Head WO contrastOrdered By: Abdulkadir Pelaez on 06-28-2025 [facility] Work Phone: [phone]-PKAT W/O CONTRASTon [id number]-HEAD W/O CONTRAST EXAM: CT-HEAD W/O CONTRAST [id number] DATE OF SERVICE: 06/28/2025 7:37 pm DEMOGRAPHICS: [...] Pelaez MD, 06/28/2025 7:55 PM Dictation workstation: [id number] Medical [facility] Hospital - DublinCT-SPINE CERVICAL WO CONTRASTon 50-15-0325KQ-SPINE CERVICAL WO CONTRASTEXAM: CT-SPINE CERVICAL WO CONTRAST [id number] DATE OF SERVICE: 06/28/2025 7:37 pm DEMOGRAPHICS: [...] osteophyte complexes at C3-4, C4-5, and C6-7. Bbtc-lx-wprghplz central canal stenosis at C5-6. Multilevel foraminal [...] Covarrubias MD, 06/28/2025 8:03 PM Dictation workstation: [id number] Medical [facility] Rehabilitation Hospital - DublinComprehensive Metabolic PanelOrdered By: Yang Cuenca on 38-75-3630Msafrll [Mass fraction] 6.7 g/dL6.0 - 8.3 g/dLKettering HealthAlbumin BCP dye (S/P/Bld) [Mass/Vol]4.1 g/dL3.5 - 5.7 g/dLKettering HealthAlbumin/Globulin [Mass ratio]1.6 {ratio}1.0 - 2.0Ketcommunity regional medical center HealthALP (S/P/Bld) [Catalytic activity/Vol]82 U/L34 - 104 U/L [facility] Medical CenterALT (S/P/Bld) [Catalytic activity/Vol]18 U/L7 - 52 U/LKFairfield Medical CenterAnion gap 4 (S/P/Bld) [Moles/Vol]9 mmol/L7 - 16 mmol/LKbarberton citizens hospital HealthAST No additional P-5'-P [Catalytic activity/Vol]38 U/L13 - 39 U/LKFairfield Medical Center Bilirubin (BldV) [Mass/Vol]0.6 mg/dl0.3 - 1.0 mg/dlPremier Health Atrium Medical CenterCalcium (Bld) [Mass/Vol]8.5 mg/dLAbnormal8.6 - 10.2 mg/dLPremier Health Atrium Medical CenterChloride (S/P/Bld) [Moles/Vol]98 mmol/L98 - 107 mmol/[facility] HospitalCO2 (S/P/Bld) [Moles/Vol]20 mmol/YRgrdxajw06 - 31 mmol/[facility] HospitalCreatinine [Mass/Vol]1.12 mg/dL0.70 - 1.30 mg/dLPremier Health Atrium Medical CenterGFR Male64- PINFPremier Health Atrium Medical CenterComment on above: Reported eGFR is based on the CKD-EPI 2020 equation that does not use a race coefficient.Globulin (S) [Mass/Vol]2.6 g/dL2.6 - 4.2 g/dLPremier Health Atrium Medical CenterGlucose [Mass/Vol]221 mg/yIEegzohpf65 - 109 mg/dLPremier Health Atrium Medical CenterInterpretation and review of laboratory resultsAbnormalKbarberton citizens hospital HealthPotassium (S/P/Bld) [Moles/Vol]5.2 mmol/LAbnormal3.5 - 5.1 mmol/LKFairfield Medical CenterComment on above: Hemolyzed. Hemolysis may affect this result. Specimen may be redrawn at the discretion of ordering physician.Sodium (S/P/Bld) [Moles/Vol]127 mmol/LAbnormal 136 - 145 mmol/LKbarberton citizens hospital HealthUrea nitrogen [Mass/Vol]11 mg/dL7 - 25 mg/dL [facility] KDIGO 2012 GFR Categories Stage Description eGFR (mL/min/1.73m2) G1 Normal or high >=90 G2 Mildly decreased 60-89 G3a Mildly to moderately decreased 45-59 G3b Moderately to severely decreased 30-44 G4 Severely decreased 15-29 G5 Kidney Failure <15[facility] HospitalED Provider Noteson [id number] Provider NotesEncounter Department: [facility]UTE CARE ORTHOPEDICS 4 MAIN ED Provider Notes by Ramez Denney DO at 06/28/2025 6:48 PM Author: Yordan Funezrvice: Emergency MedicineAuthor Type: ED Physician Filed: 06/28/2025 10:12 PMDate of Service: 06/28/2025 6:48 PMStatus: Signed Surgery Specialist: Ramez Denney DO (ED Physician) LOCATION OF ENCOUNTER [facility] Emergency Department CHIEF COMPLAINT Chief Complaint Patient presents with -Fall HPI Joo Allen is a 84 y.o. male with PMHx of hypertension who presents to the emergency department with complaint of a fall. Patient was at [facility], apparently his started falling and when he [...] Social Drivers of Health Received from [facility] Safety AND Environment SURGICAL HISTORY History reviewed. [...] recognition software. While attempts (more content not included)...[facility] - DublinMANUAL SCANon 06-28-2025 PLATELET CLUMPSAbsentNormBellevue HospitalComment on above:Order Comment: Release to patient->ImmediatePerformed By: #### [id number], [id number] #### [facility] [address] [place] [address] USAManual Reflexon [id number] and review of laboratory resultsNormalKFairfield Medical CenterPlatelet clump LM Ql (Bld)AbsentAbsent /LPFBarney Children's Medical Center Panel Informationon 94-99-0480Tnyuxiyha Study observation (narrative)[facility] Elbow - left GE 3 Viewson . No acute findings This dictation was created with voice recognition software. While attempts have been made to reviewthe dictation as it is transcribed, on occasion the spoken word can be misinterpreted by the technology leading to omissions or inappropriate words, phrases or sentences. Electronically Signed by: Priyanka Kirkland DO, 06/28/2025 8:12 PM Dictation workstation: [id number] FLUENCY IMAGINGEXAM: XR-ELBOW LEFT 3 OR MORE VIEWS [id number] DATE OF SERVICE: 06/28/2025 7:55 pm DEMOGRAPHICS: [...] proximal ulna on the posterior side. Priyanka Ding DO - 06/28/2025 EXAM: XR-ELBOW LEFT 3 OR MORE VIEWS [id number] DATE OF SERVICE: 06/28/2025 7:55 pm DEMOGRAPHICS: [...] Kirkland DO, 06/28/2025 8:12 PM Dictation workstation: [id number] [facility] Atrium Medical CenterRadiology Study observation (narrative)[facility] Atrium Medical CenterXR Elbow - left GE 3 ViewsOrdered By: Priyanka Kirkland on 04-64-1487Achdvqlpg Health Work Phone: XR Pelvis and Hip [...] Saeed DO, 06/28/2025 8:16 PM Dictation workstation: [id number] MERLYN IMAGINGEXAM: XR-HIP UNI LEFT 2/3 VIEWS W/PELVIS [id number] DATE OF SERVICE: 06/28/2025 7:56 pm DEMOGRAPHICS: [...] maintained.There is no significant soft tissue swelling. Saúl Faye DO - 06/28/2025 EXAM: XR-HIP UNI LEFT 2/3 VIEWS W/PELVIS [id number] DATE OF SERVICE: 06/28/2025 7:56 pm DEMOGRAPHICS: [...] Saeed DO, 06/28/2025 8:16 PM Dictation workstation: [id number] [facility] Atrium Medical CenterRadiology Study observation (narrative)[facility] Pelvis and Hip - left ViewsOrdered By: Saúl Saeed on 69-08-3902Feccnxcoc Health Work Phone: [phone]-ESDRJ LEFT 3 OR MORE VIEWSon 06-51-6784VP-ELBOW LEFT 3 OR MORE VIEWSEXAM: XR-ELBOW LEFT 3 OR MORE VIEWS [id number] DATE OF SERVICE: 06/28/2025 7:55 pm DEMOGRAPHICS: [...] Kirkland DO, 06/28/2025 8:12 PM Dictation workstation: [id number] Medical OhioHealth Rehabilitation Hospital - DublinXR-HIP UNI LEFT 2/3 VIEWS W/PELVISon 34-44-1130ZC-HIP UNI LEFT 2/3 VIEWS W/PELVISEXAM: XR-HIP UNI LEFT 2/3 VIEWS W/PELVIS [id number] DATE OF SERVICE: 06/28/2025 7:56 pm DEMOGRAPHICS: [...] Saeed DO, 06/28/2025 8:16 PM Dictation workstation: [id number] Medical OhioHealth Rehabilitation Hospital - DublinCA ECHO DOPPLER COMPLETEon 45-15-8905GplStarlight[place] [address] Cardiology Report Signed Patient: JOO ALLEN MR#: [id number] : 1940 Acct:[id number] Age/Sex: 84 / M ADM Date: 06/02/25 Loc: CARD Attending Dr: VALERIA STOKES APRN Ordering Physician: VALERIA STOKES APRN Date of Service: 06/02/25 Procedure(s): CA echo doppler complete Accession Number(s): [id number] cc: MONICAIWONAELIDA ; VALERIA STOKES APRN Patient Name: JOO ALLEN MR#: [id number] : 1940 Exam Date: 06/02/2025 Ordering Doctor: VALERIA STOKES [facility] ECHOCARDIOGRAM REPORT PROCEDURE: CA ECHO DOPPLER [...] Area (VTI): 2.47 cm2, 2.54 cm2 Deceleration Meagher: 3.57 m/s2, 2.15 m/s2 Pressure Half-Time: 379.59 [...] Melisa Martinez (more content not included)...TBHRadiology, Radiologist, - 06/02/2025 [place] [address] Cardiology Report Signed Patient: JOO ALLEN MR#: [id number] : 1940 Acct:[id number] Age/Sex: 84 / M ADM Date: 06/02/25 Loc: CARD Attending Dr: VALERIA STOKES APRN Ordering Physician: VALERIA STOKES APRN Date of Service: 06/02/25 Procedure(s): CA echo doppler complete Accession Number(s): [id number] cc: SAI ANDERSON ; VALERIA STOKES APRN Patient Name: JOO ALLEN MR#: [id number] : 1940 Exam Date: 06/02/2025 Ordering Doctor: VALERIA STOKES [facility] ECHOCARDIOGRAM REPORT PROCEDURE: CA ECHO DOPPLER COMPLETE [...] Area (VTI): 2.47 cm2, 2.54 cm2 Deceleration Meagher: 3.57 m/s2, 2.15 m/s2 Pressure Half-Time: 379.59 [...] Signed By: 06/02/25 1239 DD/ 1238 TD/TT: Guest Services Attendant: [facility] CENTERTarsha HealthcareRadiology Study observation (narrative)[facility]okside CampusCA ECHO DOPPLER COMPLETEOrdered By: Radiologist Radiology on 95-85-0149RVOL [facility] Work Phone: Orders Onlyon 75-04-3287Lnjjkq [id number] Joo Allen 1940 M Date Provider Department Center 06/02/2025 [id number]-YELLEXDR, HISTORICAL ALYSIA Posadas Family History Problem Relation Age of Onset Tuberculosis Father Family Status - Relation Status Age at Mother Father DeceasedNormalUniMercy Health West HospitalOffice Visiton 69-50-3442Dkvhrx-up [id number] Joo Allen 1940 M Date Provider Department Center 05/26/2025 Domonique-VALERIA STOKES ALYSIA Posadas Family History Problem Relation Age of Onset Tuberculosis Father Family Status - Relation Status Age at Mother Father Level of Service:64786 NE OFFICE/OUTPATIENT ESTABLISHED LOW MDM 20 MIN Reason for Visit and Comments: Follow-up [905833] - 1 year routine follow up Coronary Artery Disease [187] Hypertension [086747] Bradycardia [138029] Hyperlipidemia [182] First degree AV block [Other] Nonrheumatic mitral valve insufficiency [Other] Nonrheumatic mitral valve regurgitation [Other] Pulmonary Hypertension [818] Renal artery stenosis [Other] Sick sinus Syndrome [Other] Stage 2 chronic kidney disease [Other] Sleep Apnea [348] Obesity [[id number]]NormalUnOhioHealth Hardin Memorial HospitalALL LIPID PROFILE (FASTING)on 62-67-4302ZGOG HDL RATIO1.9NOMS HealthcareComment on above:3.3 - 4.4 LOW RISK 4.4 - 7.1 AVERAGE RISK 7.1 - 11.0 MODERATE RISK >11.0 HIGH RISK Cholesterol [Mass/Vol]157 mg/dLNINF - 200 mg/dLNOIA HealthcareCholesterol in HDL [Mass/Vol]83 mg/qJBqli09 - 60 mg/dLNOIA HealthcareComment on above:> or =60 mg/dl - LOW CARDIOVASCULAR RISK <40 mg/dl - HIGH CARDIOVASCULAR RISK Magnesium [Mass/Vol]50 mg/dLNOIA HealthcareComment on above:<100 mg/dl OPTIMAL 100-129 mg/dl NEAR OR ABOVE OPTIMAL 130-159 mg/dl BORDERLINE HIGH 160-189 mg/dl HIGH >190 mg/dl VERY HIGH Triglyceride [Mass/Vol]123 mg/dLNINF - 150 mg/dLNOIA HealthcareVLDL CHOLESTEROL 24.6 mg/dLNOIA HealthcareCCF CMP (CMP) (FOR REMOTE [facility] USE)on 04-08-6737Ulascwh [Mass/Vol]3.7 g/dL3.4 - 5.0 g/dLNOIA HealthcareALBUMIN GLOBULIN RATIO1.2NJEFFERSON COUNTY HOSPITAL – WAURIKA HealthcareALP [Catalytic activity/Vol]80 U/L46 - 116 U/LNOMS HealthcareALT [Catalytic activity/Vol]39 U/L16 - 63 U/LNOMS HealthcareAnion gap [Moles/Vol] 12.5 mmol/LNOMS HealthcareAST [Catalytic activity/Vol]35 U/L15 - 37 U/LNOMS HealthcareBilirubin [Mass/Vol]0.7 mg/dL0.2 - 1.0 mg/dLNOIA HealthcareCalcium [Mass/Vol]8.7 mg/dL8.5 - 10.1 mg/dLNOIA HealthcareChloride [Moles/Vol]97 mmol/L Low98 - 107 mmol/LNOMS HealthcareCO2 [Moles/Vol]26 mmol/L21.0 - 32.0 mmol/LNOMS HealthcareCreatinine [Mass/Vol]1.07 mg/dL0.70 - 1.30 mg/dLNOIA Healthcare GFR/1.73 sq M.predicted CKD-EPI (S/P/Bld) [Vol rate/Area]>60>=60 mL/min/1.73m 2 NOMS HealthcareGlobulin (S) [Mass/Vol]3 g/dLNOIA HealthcareGlucose [Mass/Vol]89 mg/dL74 - 106 mg/dLNOIA HealthcarePotassium [Moles/Vol]4.5 mmol/L3.5 - 5.1 mmol/LNOMS HealthcareProtein [Mass/Vol]6.7 g/dL6.4 - 8.2 g/dLNOIA Healthcare Sodium [Moles/Vol]131 mmol/ODtn529 - 145 mmol/LNOMS HealthcareTBH EGFR-NON AF MICRONESIAN>60>=60 mL/min/1.73m 2NOMS HealthcareUrea nitrogen [Mass/Vol]13 mg/dL7.0 - 18.0 mg/dLNOMS HealthcareUrea nitrogen/Creatinine [Mass ratio]12.1 mg/mgNOIA HealthcareNo Panel Informationon 16-54-1619Xqfgxhrqbdniyd and review of laboratory resultsAbTrinity Health LivoniaCLINISYNCNSac-Osage HospitalLIPID PROFILEon 52-68-7499HHAU-HDL RATIO NORMSEE BELOWOhioHealth Mansfield HospitalComment on above:Result Comment: 3.3 - 4.4 LOW RISK 4.4 - 7.1 AVERAGE RISK 7.1 - 11.0 MODERATE RISK >11.0 HIGH RISKPerformed By: #### LIPID, CMP #### [facility] [address] [place] [address] [address] Yessica Szymanskiesterol [Mass/Vol]172 mg/dLNormal<=200[facility] Comment on above:Performed By: #### LIPID, CMP #### [facility] [address] [address] [address] Yessica Szymanskiesterol in HDL [Mass/Vol]74 mg/dLCritically xiyu10-51YzzKettering Health [facility] TownshipComment on above:Performed By: #### LIPID, CMP #### [facility] [address] [address] [address] Yessica Szymanskiesterol in LDL [Mass/Vol]79.4 mg/dLOhioHealth Mansfield HospitalComment on above:Performed By: #### LIPID, CMP #### [facility] [address] [address] [address] Yessica Szymanskiestermaryan.total/Cholesterol in HDL [Mass ratio]2.3 {ratio} NormalKettering Health Washington TownshipComment on above:Performed By: #### LIPID, CMP #### [facility] [address] [address] [address] Yessica Munoz NORMAL> or = 60 mg/dl - LOW CARDIOVASCULAR RISK <40 mg/dl - HIGH CARDIOVASCULAR RISKOhioHealth Mansfield HospitalComment on above:Performed By: #### LIPID, CMP #### [facility] [address] [address] [address] Yessica RodriguezLDL CALC NORMALSEE BELOWNoSelect Medical Cleveland Clinic Rehabilitation Hospital, Edwin ShawComment on above:Result Comment: <100 mg/dl OPTIMAL 100 - 129 mg/dl NEAR OR ABOVE OPTIMAL 130 - 159 mg/dl BORDERLINE HIGH 160 - 189 mg/dl HIGH >190 mg/dl VERY HIGH Performed By: #### LIPID, CMP #### [facility] [address] [place] [address] Dr. Yessica RodriguezTriglyceride [Mass/Vol]93 mg/dLNormal<=150The [facility] Comment on above:Performed By: #### LIPID, CMP #### [facility] [address] [address] [address] Yessica JulianLDL CALC18.6 mg/dLNoSelect Medical Cleveland Clinic Rehabilitation Hospital, Edwin ShawCommunson healthcare [facility] on above: Performed By: #### LIPID, CMP #### [facility] [address] [place] [address] Dr. Yessica RodriguezPROF 14(COMP METB)on 76-18-9397Dleiywy [Mass/Vol]4.0 g/dLNormal 3.4-5.0[facility] TownshipCommunson healthcare [facility] on above:Performed By: #### LIPID, CMP #### [facility] [address] [place] [address] Dr. Yessica RodriguezAlbumin/Globulin [Mass ratio]1.4 {ratio}NormalThe [facility] HospitalCommunson healthcare [facility] on above:Performed By: #### LIPID, CMP #### [facility] [address] [place] [address] Dr. Yessica MeltonP [Catalytic activity/Vol]66 U/GBzrnyt77-382Spo [facility] on above:Performed By: #### LIPID, CMP #### [facility] [address] [address] [address] Yessica MeltonT [Catalytic activity/Vol]34 U/KRhzuyr06-56Krx [facility] HospitalComment on above:Performed By: #### LIPID, CMP #### [facility] [address] [address] [address] Yessica RodriguezAnion gap [Moles/Vol]9.0 mmol/LNormalThe [facility]Hy[facility] Memorial HospitalComment on above:Performed By: #### LIPID, CMP #### [facility] [address] [address] [address] Yessica RodriguezAST [Catalytic activity/Vol]30 U/ETgcswf68-85Dso [facility] HospitalComment on above:Performed By: #### LIPID, CMP #### [facility] [address] [place] [address] Dr. Yessica RodriguezBilirubin [Mass/Vol]0.9 mg/dLNormal0.2-1.0The [facility] Comment on above:Performed By: #### LIPID, CMP #### [facility] [address] [address] [address] Yessica RodriguezCalcium [Mass/Vol]8.9 mg/dLNormal8.5-10.1The [facility] Comment on above:Performed By: #### LIPID, CMP #### [facility] [address] [place] [address] Dr. Yessica RodriguezChloride [Moles/Vol]101 mmol/SRwxtew11-113Rks [facility] Comment on above:Performed By: #### LIPID, CMP #### [facility] [address] [address] [address] Yessica RodriguezCO2 [Moles/Vol]30.7 mmol/PEbvabq69.0-32.0The [facility] Comment on above:Performed By: #### LIPID, CMP #### [facility] [address] [place] [address] Dr. Yessica RodriguezCreatinine [Mass/Vol]1.06 mg/dLNormal0.70-1.30The [facility] Memorial HospitalComment on above:Performed By: #### LIPID, CMP #### [facility] [address] [address] [address] Yessica RendonGFR-AF MICRONESIAN>60Normal>=60The [facility]Hy[facility] Memorial HospitalComment on above:Performed By: #### LIPID, CMP #### [facility] [address] [address] [address] Yessica RendonGFR-NON AF MICRONESIAN>60Normal>=60The [facility] Memorial HospitalComment on above:Performed By: #### LIPID, CMP #### [facility] [address] [address] [address] Yessica RodriguezGlobulin (S) [Mass/Vol]2.9 g/dLNormalThe [facility] Memorial HospitalComment on above:Performed By: #### LIPID, CMP #### [facility] [address] [address] [address] Yessica RodriguezGlucose [Mass/Vol]96 mg/cTLszqpq13-511AolKettering Health [facility] Comment on above:Performed By: #### LIPID, CMP #### [facility] [address] [address] [address] Yessica RodriguezPotassium [Moles/Vol]3.7 mmol/LNormal3.5-5.1[facility] Comment on above:Performed By: #### LIPID, CMP #### [facility] [address] [address] [address] Yessica RodriguezProtein [Mass/Vol]6.9 g/dLNormal6.4-8.2[facility] Comment on above:Performed By: #### LIPID, CMP #### [facility] [address] [address] [address] Yessica RodriguezSodium [Moles/Vol]137 mmol/OOhiynt038-846MqqKettering Health [facility] Comment on above:Performed By: #### LIPID, CMP #### [facility] [address] [address] [address] Yessica RodriguezUrea nitrogen [Mass/Vol]13.0 mg/dLNormal7.0-18.0The [facility] Memorial HospitalComment on above:Performed By: #### LIPID, CMP #### [facility] [address] [place], [place] [address] Dr. Yessica RodriguezUrea nitrogen/Creatinine [Mass ratio]12.3 mg/mgNoSelect Medical Cleveland Clinic Rehabilitation Hospital, Edwin ShawComment on above:Performed By: #### LIPID, CMP #### [facility] [address] [place], [place] [address] Dr. Yessica RodriguezCardiovascular Lab Reporton 45-98-9927Tleqtmgjhjudao Lab Report [facility] Patient Name: Joo Allen [facility] Rosana MR #: [id number] Department of Physician: Helen Martinez M.D. Division of Service Date: 07/05/2021 Cardiology Birthdate: 1940 Adult Cardiovascular Room #: [address] [place] [address] Cardiovascular Laboratory Report IMPRESSIONS: 1. 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 2. Wffd-ru-cmkitthe disease of the left anterior descending coronary [...] bilateral selective coronary angiography, placement of a 6-Gambian MynxGrip closure device. METHODS: After risks, benefits, and alternatives were explained, written informed consent was obtained. The patient was prepped and draped in usual sterile fashion over both groins. Using 1% lidocaine solution, local infiltration anesthesia was achieved. Using the modified Seldinger technique and a micropuncture kit, access of the right common femoral artery was obtained. A 6-Gambian 11 cm sheath was inserted without difficulty. Angiography via the femoral sheath was performed. Bilateral selective coronary angiography was performed using JL4 and JR4 catheters. After reviewing the images, it was elected to conclude the procedure. All catheters were removed. A 6-Gambian MynxGrip closure device was deployed per protocol [...] Cabrera M.D. Date Trans: 07/06/2021 02:39 A/laina DN_JN:[id number] Memorial Hospital Vital Signs Date TimeVital SignValuePerforming LewmxxmokXysxuaif71-06-4534 10:03-0400 Respiratory rate16 /minKevin Menschel DO Work Phone: [phone] [place], [place] 4563010-17-2025 09:08-0400Body temperature 98.1 [degF]Ramez Menschel DO Work Phone: 1(841)[facility] [place], [place] [address]010-17-2025 09:08-0400Diastolic blood ogwalimp14 mm[Hg]Ramez Menschel DO Work Phone: 1(467)[facility] [place] [address]-17-2025 09:08-0400Heart rate76 /min Ramez Menschel DO Work Phone: 1(365)[facility] [place] [address]-17-2025 09:08-8366SlG4% (BldA) [Mass fraction]97 %Ramez Menschel DO Work Phone: 1(103)[facility] [place] [address]-17-2025 09:08-0400Systolic blood gfolunts744 mm[Hg]Ramez Menschel DO Work Phone: 1(920)[facility] [place] [address]-13-2025 22:00-0400Body zhzsig782.5 cmRamez Menschel DO Work Phone: 1(735)[address] [place] [address]-13-2025 22:00-0400Body mass index (BMI) [Ratio]28.83 kg/w0Tuaqu Menschel DO Work Phone: 1(202)[facility] [place], [place] 456[address]010-13-2025 22:00-0400Body uyxtip72.5 kgKecarmen Menschel DO Work Phone: 1(717)[facility] [place], [place] [address]7-08-2025 10:24-0400Body .6 Flor Anderson MD Work Phone: [facility] CampusYjdxzxpqsg07-32-6651 10:24-0400Body mass index (BMI) [Ratio]26.31 kg/d8FubwneSai Anderson MD Work Phone: [facility] CampusWjidndoldo94-53-8038 10:24-0400Body unbjvd76.94 kgSai Anderson MD Work Phone: 1(567)[address]07-08-2025 10:24-0400Diastolic blood gsodzsmz00 mm[Hg]Sai Anderson MD Work Phone: 1(282)[address] [place], [place] 2000807-08-2025 10:24-0400Heart rate84 /min Sai Anderson MD Work Phone: 1(222)[address] [place], [place] 2000807-08-2025 10:24-4294OgW3% (BldA) [Mass fraction]98 %Sai Anderson MD Work Phone: 1(747)[address] [place], [place] 2000807-08-2025 10:24-0400Systolic blood bvdaadut548 mm[Hg]Sai Anderson MD Work Phone: 1(480)[address] [place], [place] 2000805-15-2025 08:53-0400Body txvkyv704.6 cmEjitendra Anderson MD Work Phone: 1(533)[address] [place], [place] 2000805-15-2025 08:53-0400Body mass index (BMI) [Ratio]26.47 kg/n7EorqzkSai Anderson MD Work Phone: 1(287)[address] [place], [place] 2000805-15-2025 08:53-0400Body .39 kgSai Anderson MD Work Phone: 1(281)[address] [place], [place] 2000805-15-2025 08:53-0400Diastolic blood nntrfqar40 mm[Hg]Sai Anderson MD Work Phone: 1(575)[address] [place], [place] 2000805-15-2025 08:53-0400Heart rate76 /min Sai Anderson MD Work Phone: 1(768)[address] [place], [place] 2000805-15-2025 08:53-5641IkS1% (BldA) [Mass fraction]99 %Sai Anderson MD Work Phone: 1(161)[address] [place], [place] 2000805-15-2025 08:53-0400Systolic blood wywoavbz137 mm[Hg]Sai Anderson MD Work Phone: 1(468)[address] [place], [place] 2000811-18-2024 13:57-0500Body jmlujp545.6 cmEjitendra Anderson MD Work Phone: 1(840)[address] [place], [place] 2000811-18-2024 13:57-0500Body mass index (BMI) [Ratio]26.47 kg/l5XthsljSai Anderson MD Work Phone: [facility] CampusHsovzmowhc44-47-9805 13:57-0500Body .39 kgSai Anderson MD Work Phone: [facility]OCap[facility] CenterBefblpjowc04-20-0017 13:57-0500Diastolic blood oyezpsvx12 mm[Hg]Sai Anderson MD Work Phone: [facility] CampusToalddaroq76-26-4885 13:57-0500Heart rate71 /min Sai Anderson MD Work Phone: [facility] CampusElcbquhtel28-43-3536 13:57-0066LvG8% (BldA) [Mass fraction]98 %Sai Anderson MD Work Phone: [facility]OCapital Region Medical CenterPglpoccpcn55-74-7770 13:57-0500Systolic blood qkpxjvpi948 mm[Hg]Sai Anderson MD Work Phone: [facility] Healthcare Encounters Encounter DateEncounter TypeCare ProviderFacilityStart: 07-27-2025 End: 91-87-5892Ydkqbv Ge Anderson MD Work Phone: [facility] MedicineStart: 07-27-2025 End: 01-49-3757Gjxshy Ge Anderson MD Work Phone: [facility] [address] [facility] MedicineStart: 07-27-2025 End: 84-04-5032mjyxempvuuGEZZNL J HEMEYERNot AvailableStart: 07-21-2025 End: 33-64-0044Ldijta outpatient new 30 minutesJr. Lynsey Borrero DO Work Phone: NOXE Braxton OrthopaedicsComment on above:Closed subtrochanteric fracture of hip, left, initial encounter (HCC) (Primary Dx); Left hip painStart: 07-21-2025 End: 40-18-7330levgfqhvapXSLYNSEY ESCOBAR AvailableStart: 07-07-2025 End: 05-22-2109Wywedhjdksqh care manage srvc 7 day dischargeSai Anderson MD Work Phone: [phone] MedicineComment on above:Fall from standing, sequela (Primary Dx); Closed displaced intertrochanteric fracture of left femur, sequela; Post-operative state; Hematoma of leg, left, sequela; Bruise; Encounter for examination following treatment at hospital; Over weightStart: 07-07-2025 End: 63-78-9803xnnhgssdoyMVXDRI J HEMEYERNot AvailableStart: 07-07-2025 End: 76-87-0876Rtdbwv flowsheetSai Anderson MD Work Phone: [address] MedicineStart: 07-07-2025 End: 58-70-8342Imbqwr flowsheetSai Anderson MD Work Phone: [phone] [address] MedicineStart: 07-05-2025 End: 47-49-0571Erpgciagw encounterFlorencia Rinaldi [facility] Care Orthopedics 4 MainStart: 37-19-2790Ezcrazlptr and management of inpatientZACHASRIKANTH DOUG [facility] Institutetart: 06-28-2025 Emergency department patient visitRAMEZ BAHENA [facility] Start: 06-28-2025 End: 74-17-6320Rxhzwmqefp and management of inpatientRamez Bahena [facility] [place] City[place] Work Phone: [facility] Orthopedics 4 MainComment on above:Intertrochanteric fracture, closed, left, initial encounter (HCC) (Primary Dx); Fall from standing, initial encounter; Hyponatremia; Closed left hip fracture, initial encounter (HCC)Start: 67-88-2090Ucyspoakz department patient visitEDELIDA ANDERSONMercy Health St. Anne Hospitaltart: 06-02-2025 End: 01-48-5232Csojdjmpv Result EncounterGeneric External Data ProviderNOMS External Department UnsolicitedStart: 06-02-2025 End: 90-77-1873Wwgjgcahg Result EncounterGeneric External Data ProviderNOMS External Department UnsolicitedStart: 05-26-2025 End: 18-72-1218uzykiasftbTVFBSGF [facility] Campustart: 03-23-2025 End: 35-39-0847Arrjgk Ge Anderson MD Work Phone: NOMS CI FM 100Start: 03-23-2025 End: 54-61-3377Tultqv flowsMae Anderson MD Work Phone: NOMS CI FM 100Start: 03-23-2025 End: 61-04-5434Pmgxxio encounter procedureSai Anderson MD Work Phone: NOFG CI FM 100Comment on above:Encounter for Medicare annual wellness exam (Primary Dx); Advance directive in chart; Encounter for screening for other disorder; Screening for alcohol problem; Over weight; Sick sinus syndrome (HCC); Pulmonary hypertension (HCC); Arthritis of carpometacarpal (CMC) joint of right thumbStart: 03-23-2025 End: 83-36-0063rrpuakmhmkPCCTOM J HEMEYERNot AvailableStart: 01-28-2025 End: 75-19-5014Lvfavp Ge Anderson MD Work Phone: NOMS CI FM 100Start: 01-28-2025 End: 63-76-3279Upjegg flowsMae Anderson MD Work Phone: NOMS CI FM 100Start: 01-28-2025 End: 39-77-1670Tipobc outpatient visit 25 minutesSai Anderson MD Work Phone: NOMS CI FM 100Comment on above:Essential hypertension (CMS/HCC); Mixed hyperlipidemia (CMS/HCC); Hypertensive nephropathy (CMS/HCC); Stage 2 chronic kidney disease; Microalbuminuria; Gastroesophageal reflux disease without esophagitisStart: 01-28-2025 End: 80-01-8313haazclctsuZJYUOZ J HEMEYERNot AvailableStart: 01-22-2025 End: 84-25-6680Odwgiuctz Result Laura Anderson MD Work Phone: NOMS External Department UnsolicitedStart: 01-22-2025 End: 59-37-7260Zddfigyzj Result Laura Anderson MD Work Phone: NOMS External Department UnsolicitedStart: 01-04-2025 End: 92-53-7908PfajwsFnzklo J Hemeyer MD Work Phone: noms CI FM 100Comment on above:Mixed hyperlipidemia (CMS/HCC); Essential hypertension (CMS/HCC)Start: 08-03-2024 End: 97-80-3697Hzxjjd flowsMae Anderson MD Work Phone: NOIE CI FM 100Start: 08-03-2024 End: 73-58-2638Hqjcyy flowsMae Anderson MD Work Phone: NOLE CI FM 100Start: 08-03-2024 End: 41-26-9561Yqoxax outpatient visit 25 minutesEdelida Anderson MD Work Phone: noms CI FM 100Comment on above:Essential hypertension (CMS/HCC) (Primary Dx); Hypertensive nephropathy (CMS/HCC); Stage 3a chronic kidney disease (HCC) (CMS/HCC); Microalbuminuria; Mixed hyperlipidemia (CMS/HCC); Gastroesophageal reflux disease without esophagitis; Arthritis of carpometacarpal (CMC) joint of right thumb; Over weight; Nonrheumatic aortic valve insufficiency; Nonrheumatic mitral valve regurgitation; Coronary arteriosclerosis (CMS/HCC)Start: 08-03-2024 End: 48-44-6600icxlqwjggwZLGWFY J HEMEYERNot AvailableStart: 06-04-2024 End: 99-32-6234XxxcmjCecwhk J Hemeyer MD Work Phone: NOFK CI FM 100Comment on above:Essential hypertension (CMS/HCC); Mixed hyperlipidemia (CMS/HCC); Gastroesophageal reflux disease without esophagitisStart: 08-15-2022 End: 52-44-7827oeiiknlhseWW TANNER KINGSTONFacility:E4Aunci: 07-18-2022 End: 79-11-4291jvqpwxpwcbCR SAI ANDERSONFacility:A9Wsnwy: 07-05-2021 End: 62-38-7089aljpfrleuvLHCFGRGC SELFFacility:[facility] Procedures DateProcedureProcedure DetailPerforming ClinicianStart: 81-34-0551Prxja metabolic panel calcium totalHema Sera Carrillo MD Work Phone: Start: 79-81-6098Kiscd metabolic panel calcium total Baljinder Sera Carrillo MD Work Phone: Start: 90-16-9770Mophb hip unilateral with pelvis 1 viewZachary Doug Ramsey DO Work Phone: Start: 06-29-2025 End: 20-93-9330KADTOPKAA, INTRAMEDULLARY MANUEL, FEMUR, ANTEGRADEZachary Doug Ramsey DO Work Phone: Start: 06-29-2025 End: 92-74-7934Spcyanhq screenKevin Menschel DO Work Phone: Comment on above:Order Comment: Release to patient->ImmediatePerformed By: #### [id number] #### [place] [address] USAStart: 10-85-0272QSJ typingJoseph Tarsha Mortensen DO Work Phone: Start: 87-27-7601Vdyri metabolic panel calcium total Luis Lionel Handley [employer] Work Phone: Start: 31-17-5523IKIGEPGLVOX CARE PER PROTOCOLSyed Lionel Colladosain [employer] Work Phone: Start: 06-28-2025 End: 76-62-9579Kgdqt elbow complete minimum 3 viewsRamez Bahena Menschel DO Work Phone: Start: 49-17-0230Fz cervical spine w/o contrast materialRamez Bahena Menschechaparrita DO Work Phone: Start: 16-44-3590Le head/brain w/o contrast material Ramez Brambilachel DO Work Phone: Start: 40-75-7899Vxgregbjswyxh metabolic panelRamez Denney DO Work Phone: Start: 99-38-0778GR ECHO DOPPLER COMPLETEGeneric External Data ProviderStart: 20-84-7473KQI LIPID PROFILE (FASTING)Sai Anderson MD Work Phone: Start: 15-41-1701ORJ CMP (CMP) (FOR REMOTE [facility] USE) Sai Anderson MD Work Phone: Plan of Treatment DateCare ActivityDetailAuthorStart: 94-15-5841Rjqdq diphtheria, tetanus and acellular pertussis (DTaP) vaccinationDTaP,Tdap,and Td Vaccine (2 - Tdap) [facility] CenterStart: 07-08-2026Medicare Annual Wellness (AWV)Medicare Annual Wellness (AWV)NOMS HealthcareStart: 08-18-2025 End: 25-12-6561Etjavon encounter gmbgqihhd32/03/2025 1:00 PM EST Office Visit [facility] [address] [place] [id number] Jr. Lynsey Borrero DO [address] [facility] [address] [place] [address] NOMTarsha Arndt OrthopaedicsStart: 07-27-2025 End: 43-24-7943Ysznvsp encounter procedureNOMS CI FM 100Comment on above: Essential hypertension; Hypertensive nephropathy; Stage 2 chronic kidney disease; Microalbuminuria; Mixed hyperlipidemia; Gastroesophageal reflux disease without esophagitisStart: 07-07-2025 End: 02-18-1175Umrfgru encounter ocrkrufwe49/22/2025 4:00 PM EDT Office Visit NOMTarsha Abarca 100 [facility] Medicine 112 [facility] [address] [place] [address] Sai Anderson MD [address] [facility] [address] [place] [address] (Fax) Encounter for examination following treatment at hospital; Post-operative state; Closed displaced intertrochanteric fracture of left femur, sequela; Closed fracture of left hip, sequela; Fall from standing, sequela; Over weightNOMS [address] 100 Family MedicineComment on above:Encounter for examination following treatment at hospital; Post-operative state; Closed displaced intertrochanteric fracture of left femur, sequela; Closed fracture of left hip, sequela; Fall from standing, sequela; Over weightStart: 08-80-5282MESRV-19 Vaccine ( season)COVID-19 Vaccine ( season)NOMS HealthcareStart: 10-36-0021Dshsjwufk vaccinationNOMS HealthcareStart: 03-23-2025 End: 57-88-3286Liwepcw encounter rqkkolsej35/08/2025 9:30 AM EDT Office Visit [facility] CI FM [address] [place] [address] Sai Anderson MD 112 [facility] [address] [place] [address] Encounter for Medicare annual wellness exam; Advance [...] Annual Wellness (AWV)Medicare Annual Wellness (AWV)NOMS HealthcareStart: 95-25-7184Nzyzpjjjeedg Vaccine: 65+ Years (1 of 2 - PCV)Pneumococcal Vaccine: 65+ Years (1 of 2 - PCV)NOMS HealthcareComment on above:Postponed from 1945 (Patient Refused)Postponed from 1958 (Patient Refused)Start: 01-28-2025 End: 27-59-7992Xvoiyoj encounter procedureNOMS CI FM 100Comment on above: Essential hypertension (CMS/HCC); Mixed hyperlipidemia (CMS/HCC); Hypertensive nephropathy (CMS/HCC); Stage 3a chronic kidney disease (HCC) (CMS/HCC); Microalbuminuria; Gastroesophageal reflux disease without esophagitisStart: 08-04-2024 End: 82-16-5857Wawmgah encounter zvvqjuply99/19/2024 9:30 AM EST Office Visit N[facility]S CI FM 100 [address] [facility] [address] [place] [address] Sai Anderson MD [address] [facility] [place] [address] (Fax)NOMS CI FM 100Start: 08-03-2024 End: 32-52-7163Vbiuaef encounter zlmlvomvs10/18/2024 2:00 PM EST Office Visit N[facility]S CI FM 100 [address] [facility] [address] [place] [address] Sai Anderson MD 112 [facility] 100 [place] [address] (Fax) Essential hypertension (CMS/HCC); Hypertensive nephropathy (CMS/HCC); [...] (CMC) joint of right thumb; Over weightStart: 65-36-8688Dlayqsyre vaccinationInfluenza Vaccine (#1)[facility]Start: 43-84-8964Mtbevn Shingles Vaccine (Sequential) (1 of 2)Zoster Shingles Vaccine (Sequential) (1 of 2)[facility] CenterStart: 1959 Pneumococcal Vaccine: 50+ Years (1 of 2 - PCV)Pneumococcal Vaccine: 50+ Years (1 of 2 - PCV)[facility] Medical CenterSthollywood: 70-46-1111Zfmyxqxzxouw Vaccine: 65+ Years (1 of 2 - PCV)Pneumococcal Vaccine: 65+ Years (1 of 2 - PCV)[facility] CampusStart: 42-08-4348Kpneyikn ExamWellparkview lagrange hospital ExamPremier Health Atrium Medical CenterCBC W/DIFFCBC W/DIFF Lab Routine Lab AM Daily Draw until discontinued starting 07/01/2025, 2 completed [facility] HealthComment on above:Lab AM Daily Draw until discontinued starting 07/01/2025, 2 completedRT CPAP Per Home RegimenRT CPAP Per Home Regimen Respiratory Care Routine HS with Q4H checks until discontinued starting [facility] Work Phone: comment on above:HS with Q4H checks until discontinued starting 06/30/2025WALKERWalker 5in Wheels (front) Equipment Routine Fall from standing, initial encounter Intertrochantericfracture, closed, left, initial encounter (HCC) Hyponatremia Closed left hip fracture, initial encounter (HCC) Ordered: 06/30/2025[facility] Work Phone: Comment on above:Ordered: 06/30/2025XR Hip - left 3 ViewsXR hip left 2 or 3 views Imaging Routine Left hip pain 07/21/2025 1:14 PM [facility] Work Phone: Immunizations Immunization DateImmunizationNotesCare MxkfbobvIgxywfbl72-33-3253Lypmxzg SARS-CoV-2 VaccinationEdelida Anderson MD Work Phone: [facility] CampusQhwryfnimw20-73-6090ycjiffrev, injectable, quadrivalent, preservative freeEdelida Anderson MD Work Phone: [facility] CampusXjcolxqqtd75-50-0624fwhhxznnd virus vaccine, unspecified formulationSai Anderson MD Work Phone: [facility] CampusWylmaeeyal98-63-2524Kvywxjgqu, Seasonal, Quadrivalent, AdjuvantedEdelida Anderson MD Work Phone: [facility] CampusVlzvbfczsn19-53-6305jfvtgdnnid, tetanus toxoids and acellular pertussis vaccineEdelida Anderson MD Work Phone: [facility] Payers DatePayer CategoryPayerPolicy ID2021Medicare ([facility] Care)[facility] [id number] 2021Medicare [employer] [id number] HEALTH [facility] [id number] 2020- [address] [place] [address] [id number] [id number] Wmzy-wfq5[id number] 2..1.257837.3.579.2.63443-35-0763Zrgmunp [id number] 2..1.208303.3.57[id number] 2..1.067128.3.57[id number] 2..1.088727.3.57[id number] 2..1.989544.3.57[id number] 2.16.840.1.708295.3.57[id number] 2.16.840.1.200544.3.57[id number] 2.16.840.1.684563.3.57[id number] 2.16.840.1.860679.3.57[id number] 2.16.840.1.223969.3.57[id number] 2.16.840.1.825620.3.57[id number] 2.16.840.1.186088.3.57[id number] 2.16.840.1.580246.3.57[id number] 2.16.840.1.512774.3.57[id number] 2.16.840.1.163961.3.57[id number] 2.16.840.1.10[id number] 2.16.840.1.509802.3.579.2.593 Social History DateTypeDetailFacilityStart: 84-70-5527Ljnhvlx smoking status NHISNever smoked tobaccoNOMS HealthcareStart: 02-26-2023 End: 99-07-5950Onkkvmp use and exposureSmokeless tobacco non-userNOMS Healthcare Start: 02-17-2024 End: 85-41-4048Gkxbrnzjo beverage intakeCurrent drinker of alcohol (finding)NOMS HealthcareStart: 02-17-2024 End: 49-75-0784Orekylrha beverage intakeMCKAY-DEE HOSPITAL CENTER HealthcareStart: 02-17-2024 End: 89-04-3096Zsogpzo use panelMCKAY-DEE HOSPITAL CENTER HealthcareStart: 01-82-0876Dgv assigned at birthNot on fileMCKAY-DEE HOSPITAL CENTER HealthcareStart: 75-89-9978Gzglgif smoking status NHIS Ex-smokerPremier Health Atrium Medical CenterHistory of tobacco useCurrent smokerPrem[facility] Health Atrium Medical Center History of tobacco useCigarette SmokerPremier Health Atrium Medical CenterHow often do you have a drink containing alcohol?4 or more times a weekPremier Health Atrium Medical CenterHow many standard drinks containing alcohol do you have on a typical day?3 or 4Ketcommunity regional medical center Health How often do you have 6 or more drinks on 1 occasion?WeeklyPremier Health Atrium Medical Center Start: 11-28-2022 End: 07-85-2620YnsOkmrCyoxqixci Health Medical Equipment Procedure CodeEquipment CodeEquipment Original TextEquipment IdentifierDates Femoral Nail Ccd 130 Degrees Long Blue Left+[id number], [id number]_imp FDAStart: 23-03-0603Qgxpz Lag Z Nail 10.5x110 +[id number], [id number] FDAStart: 65-52-2402Ehzzd Wil Z Nail Fa 5.0x55+[id number], [id number]_imp FDAStart: 06-29-2025 Functional Status SyhiKojufkwaunErybsaWznlkfts76-18-0260Jypna score [AUDIT-C]8 06/28/2025 10:14 PM EDT Wendy Banks RNPremier Health Atrium Medical CenterLjwwcm42-44-0308Ccq you deaf, or do you have serious difficulty hearingNo 06/28/2025 10:12 PM EDT Wendy Banks RN [facility]10-13-2025Are you blind, or do you have serious difficulty seeing, even when wearing glassesNo 06/28/2025 10:12 PM EDT Wendy Banks RN No [facility] Medical CenterOyfzzs85-72-8293Sq you have serious difficulty walking or climbing stairsNo 06/28/2025 10:12 PM EDT Wendy Banks RN [facility]10-13-2025Do you have difficulty dressing or bathingNo 06/28/2025 10:12 PM EDT Wendy Banks RN [facility] HospitalXpxvck46-41-0343Xgovewy of a physical, mental, or emotional condition, do you have difficulty doing errands alone such as visiting a physician's office or shoppingNo 06/28/2025 10:12 PM EDT Wendy Banks RN [facility] WestIdwmpc89-59-9213Ncvdscb Health Questionnaire 2 item (PHQ-2) [Reported] [facility] CampusQukkjumywi60-77-5969Nbcyxlx Health Questionnaire 2 item (PHQ-2) [Reported] [facility] Mental Status QxkrUdymmspwtjKqdcucAbjdovvd98-10-1021Tstnnds of a physical, mental, or emotional condition, do you have serious difficulty concentrating, remembering, or making decisionsNo 06/28/2025 10:12 PM EDT Wendy Banks RN [facility] Clinical Notes 08-03-2024 to 07-21-2025 Note Date & CyyxDtmvMbjqlieu48-16-2395 History of Present illness Narrative* Jr. Lynsey Borrero, DO - 07/21/2025 1:15 PM EST Images from the original note were not included. HISTORY OF PRESENT ILLNESS: EST PT Joo Allen is an 84 y.o. @ male. (NEW PT) (DR. ANDERSON REFERRAL) - RECHECK (L) HIP S/P (L) ORIF PERITROCH FEMUR FX 06/28/25 (3 WKS 2DAYS) @[facility] (DR. RAMSEY) ; TALYA: 06/27/25 (3 WKS, 1 DAY) - FELL ONTO (R) SIDE, FELLON HIM ON (L) SIDE. XRAY (L) HIP TODAY, 07/21/25 IN EPIC XRAY (PRE-OP) 06/28/25 @[facility] IN IMAGING TAB NO MRI (POST-OP) CT ABD / PELVIS 07/09/25 @[facility] IN [place] PT / OT @HOME [facility] CONTINUES PT / HEP. DISCOMFORT TO LATERAL ASPECT WITH USE. CAN RADIATE INTO LOW BACK. ADMITS SWELLING / BRUISING. OCCASIONAL NUMBNESS. DENIES TINGLING. ADMITS STIFFNESS / INSTABILITY. GOOD ROM - PAINFUL WITH CERTAIN MOVEMENTS. WAKING HS. OXYCODONE / TYL TID. ICING DAILY. ADMITS SWELLING / BRUISING TO (L) FOOT. HX LBP ALLERGIES: Allergies[1] HOME MEDICATIONS: Current Outpatient Medications Medication Instructions amLODIPine (Norvasc) 5 MG tablet 0.5 tablets, Daily aspirin 325 mg, 2 times daily atorvastatin (LIPITOR) 40 mg, Oral, Daily Docusate Sodium (COLACE PO) 1 tablet, Daily PRN ferrous sulfate 325 mg, Daily RT lisinopril 20 mg, Daily magnesium oxide (MAG-OX) 400 mg, Daily methocarbamol (ROBAXIN) 500 mg, Every 8 hours PRN nabumetone (Relafen) 750 MG tablet TAKE 2 TABLETS BY MOUTH EVERY DAY omeprazole (PRILOSEC) 20 mg, Oral, Daily before breakfast, Do not crush or chew. oxyCODONE-acetaminophen (Percocet) 5-325 MG tablet 1 tablet, Oral, Every 4 hours PRN Potassium 99 MG tablet 1 tablet, Daily PHYSICAL EXAM: Hip Musculoskeletal Exam Gait Gait [...] ROM: normal. Passive ROM: normal. Active extension: 40. Passive extension: 40. Active flexion: 120. Passive flexion: 120. Active internal rotation: 45. Passive internal rotation: [...] to calculate BMI. Tobacco Use: Low Risk (07/21/2025) Patient History Smoking Tobacco Use: Never Smokeless Tobacco Use: Never Passive Exposure: Not on file Recent Concern: Tobacco Use - Medium Risk (06/29/2025) Received from [facility] Patient History Smoking Tobacco Use: Former Smokeless Tobacco Use: Never Passive Exposure: Not on file Alcohol Use: Alcohol Misuse (06/28/2025) Received from [facility] AUDIT-C Q1: How often do you have a drink containing alcohol?: 4 or more times a week Q2: How many drinks containing alcohol do you have on a typical day when you are drinking?: 3 or 4 Q3: How often do you have six or more drinks on one occasion?: Weekly IMAGING: Procedures Orders Placed This Encounter Procedures Handicap Placard Lifetime Duration: Lifetime XR hip left 2 or 3 views Reason for exam:: Post-op ASSESSMENT: ICD-10-CM 1. Closed subtrochanteric fracture of hip, left, initial encounter ([facility]) S72.22XA 2. Left hip pain M25.552 XR hip left 2 or 3 views Handicap Placard Lifetime There was no evidence of infection or ascending lymphangitis. Left lower extremity showed no acute neurovascular changes. All of his compartments were soft. PLAN:We have discussed his x-rays with him and his and showed him his x- rays today. The greater trochanteric fragment is significantly displaced. We will continue him guarded weightbearing no standing for more than 10 minutes or walking for more than 10 minutes without a seated break. He will continue to use his walker and partial weightbearing to left lower extremity. We'll see him back in 3 weeks to really evaluate him radiographically. Questions answered in laymen terms at the bedside. The diagnosis, home exercise plan and any ongoing restrictions/ recommendations reviewed. If unable to be reached in office, I recommend evaluation at nearest Emergency Room if any symptoms worsened or new symptoms develop for requiring urgent evaluation. [1] No Known Allergies documented in this encounterResearch Medical Center-Brookside CampusNwtffphbch56-51-8022 History of Present illness Narrative* Sai Anderson MD - 07/07/2025 4:00 PM EDT Images from the original note were not included. Patient ID: Joo Allen is a 84 y.o. male who presents for: Flowsheet Row Patient Outreach from 07/05/2025 in [facility] with Emma Woodard LPN Hospital Information ED, Hospital or Nursing Home Facility Discharge? Hospital Patient has been contacted within two business days of discharge Yes Diagnosis Left hip fracture status post mechanical fall status postleft peritrochanteric femur fracture with long cephalomedullary nail on 06/29/2025 Discharge Date 07/02/25 Discharged To: Home Setting Discharge Hospital Other (use comment) [[facility]] Engagement Call Start Time 1020 Admission Date [...] CT head, echo Call End Time 1039 Review of Systems No nausea vomiting diarrhea or constipation. No shortness a breath. Severe pain he went to the ER for is much improved. Concerns over the amount of bruising in his leg and hip. Objective The patient is pleasant and in no acute distress , in some obvious pain especially with movement. The patient has good eye contact and clear speech Using walker with mild limp and slow ambulation but steady. In and out of the chair with some difficulty but rolls onto his right hip and then is able to get up. Surgical wounds are intact with martín without secondary signs of increased calor or rubor or infection. He does have significant bruising over the left hip. It is indurated and rather large. It does go down the leg towards the knee. It is also up on to the buttocks slightly. He also has some bruising on his left upper back laterally. He does have some swelling distally in the leg but I think it is mild in nature. Otherwise the leg is warm with good capillary refill and pulses. He has adequate breath sounds bilaterally without rales, wheezing, rhonchi. 03/23/2025 10:24 AM 01/28/2025 8:53 AM 08/03/2024 1:57 PM 02/17/2024 10:01 AM Vitals BMI 26.31 kg/m2 26.47 kg/m2 26.47 kg/m2 26.47 kg/m2 BSA (m2) 1.86 m2 1.86 m2 1.86 m2 1.86 m2 Systolic 120 128 120 130 Diastolic 76 68 64 78 Heart Rate 84 76 71 81 SpO2 98 % 99 % 98 % 98 % Height (in) 5' 6 5' 6 5' 6 5' 6 Weight (lb) 163 164 164 164 Visit Report Report Report Report Report Allergies[1] Medications Ordered Prior to Encounter[2] 1. Fall from standing, sequela (Primary) The patient's actually began to fall and he reached out and tried to get her. He fell 1st withher falling on top of him. They believe that the rib and upper back bruise was from his initial fall but that the fracture hip was from her falling on him. - Ambulatory referral to Orthopaedic Surgery; Future 2. Closed displaced intertrochanteric fracture of left femur, sequela He is having some pain but overall he is getting better with it. He is not drinking alcohol with his oxycodone. - Ambulatory referral to Orthopaedic Surgery; Future 3. Post-operative state I discussed with them and I believe he is postoperatively stable at this point in time. I did discuss with them removal of Martín next week if not scheduled him with the orthopedic surgery. Referral to orthopedic surgery for terminal carman follow. - Ambulatory referral to Orthopaedic Surgery; Future 4. Hematoma of leg, left, sequela This will be a chronic problem for them. I suspect it is a dual component of the fall itself as well as the fracture and then surgical intervention. I discussed with them that it would not surprise me especially if the indurated area below the hip took up to 6 weeks to truly heel and possibly longer. 5. Bruise This is on his back and appears to be fairly superficial at this point there is a little bit of a deep component up near the shoulder blade but he has good range of motion here and no special treatment. 6. Encounter for examination following treatment at hospital This visit is prompted as a transition of care. The patient has been contacted by phone within 2 business days of discharge or at least 2 unsuccessful attempts were made to contact the patient within the 2 business days. Any available documents including; emergency room note, visit notes, consults, and discharge summary or continuity of care documents were reviewed. Any laboratory investigation or diagnostic imaging that was ordered by outside physicians and available was obtained and reviewed. The transition of care note is reviewed. a jwvl-no-tkfo evaluation is done today. Medical decision making is complex in degree. - Ambulatory referral to Orthopaedic Surgery; Future 7. Over weight With the weekend coming up again they still have my cell phone number from last weekend. I discussed with them if they needed anything, to send me a text message and I would call them back on Saturday morning. Please Note: Portions of this chart may have been created using voice recognition software. Occasionally a wrong-word or sound-like substitutions may have occurred due to inherent limitations of the voice recognition software. Please read the chart carefully and recognize, using context, where the substitutions may have occurred. [1] No Known Allergies [2] Current Outpatient Medications on File Prior to Visit Medication Sig Dispense Refill amLODIPine (Norvasc) 5 MG tablet Take 0.5 tablets by mouth Daily Take 0.5 tab. Hold if SBP <110. aspirin 325 MG tablet Take 325 mg by mouth in the morning and 325 mg before bedtime. atorvastatin (Lipitor) 40 MG tablet Take 1 tablet (40 mg) by mouth Daily 90 tablet 1 ferrous sulfate 325 (65 Fe) MG tablet Take 325 mg by mouth in the morning. lisinopril 20 MG tablet Take 20 mg by mouth Daily Hold if SBP <110 magnesium oxide (Mag-Ox) 400 MG tablet Take 400 mg by mouth in the morning. methocarbamol (Robaxin) 500 MG tablet Take 500 mg by mouth every 8 (eight) hours if needed for muscle spasms nabumetone (Relafen) 750 MG tablet TAKE 2 TABLETS BY MOUTH EVERY DAY (Patient not taking: Reported on 07/05/2025) 180 tablet 1 omeprazole (PriLOSEC) [address] capsule Take 1 capsule (20 mg) by mouth in the morning. Take before meals. Do not crush or chew. 90 capsule 1 oxyCODONE-acetaminophen (Percocet) 5-325 MG tablet Take 1 tablet by mouth every 4 (four) hours if needed polyethylene glycol, PEG, 3350 (Miralax) 17 g packet Take 34 g by mouth 1 (one) time Potassium Gluconate 2.5 MEQ tablet Take 1 tablet by mouth 1 (one) time each day. [DISCONTINUED] amLODIPine (Norvasc) 5 MG tablet Take 1 tablet (5 mg) by mouth Daily 90 tablet 1 [DISCONTINUED] aspirin 81 MG EC tablet 81 mg in the morning. (Patient not taking: Reported on 07/05/2025) [DISCONTINUED] lisinopril 40 MG tablet Take 1 tablet (40 mg) by mouth Daily 90 tablet 1 No current facility-administered medications on file prior to visit. documented in this encounterResearch Medical Center-Brookside [id number] Telephone encounter Note* Telephone Encounter - Florencia Rinaldi RN - 07/05/2025 6:20 PM EDT Discharge Follow Up Phone Call Complete No concerns at this time. Discharge medications obtained with no reported side effects. Follow up appointment has not been scheduled; waiting for call back from office. [facility] has been in contact. [facility]10-20-2025 Miscellaneous Notes* Telephone Encounter - Florencia Rinaldi RN - 07/05/2025 6:20 PM EDT Discharge Follow Up Phone Call Complete No concerns at this time. Discharge medications obtained with no reported side effects. Follow up appointment has not been scheduled; waiting for call back from office. [facility] has been in contact. documented in this encounterPremier Health [facility]10-17-2025 NoteEncounter Department: [facility] ACUTE [facility] ORTHOPEDICS 4 MAIN Progress Notes by Naun Nguyen PTA at 07/02/2025 12:33 PM Author: Naun Nguyen PTAService: PT TreatmentAuthor Type: Tilt Wall Supervisor Filed: 07/02/2025 12:34 PMDate of Service: 07/02/2025 12:33 PMStatus: Signed Surgery Specialist: Naun Nguyen PTA (Tilt Wall Supervisor)Cosigner: Christianne Dennis PT, DPT at 07/02/2025 1:17 PM Physical Therapy Treatment Admit date: 06/28/2025 Today's Date: 07/02/2025 Patient Name/MR#: Joo Allen [id number] Current Room: [address] Admitting Diagnosis: Closed left hip fracture, initial encounter (HCC) [S72.002A] Fall from standing, initial encounter [W19.XXXA] Intertrochanteric fracture, closed, left, initial encounter (HCC) [S72.142A] Admitting Provider: Philip Farias MD PT Discharge Recommendations 1. Physical Therapy services recommended to continue after discharge: Yes 2. Supervision for safety required: Caregiver will need to provide time clock inspector supervision: Unobserved for brief periods of time [...] perform sit to/from siddhartha (more content not included)...[facility]10-17-2025 History of Present illness Narrative* Naun Nguyen, SALES RELATIONSHIP MANAGER - 07/02/2025 12:33 PM EDT Physical Therapy Treatment Admit date: 06/28/2025 Today's Date: 07/02/2025 Patient Name/MR#: Joo Allen [id number] Current Room: [address] Admitting Diagnosis: Closed left hip fracture, initial encounter (HCC) [S72.002A] Fall from standing, initial encounter [W19.XXXA] Intertrochanteric fracture, closed, left, initial encounter ([facility]) [S72.142A] Admitting Provider: Philip Farias MD PT Discharge Recommendations 1. Physical Therapy services recommended to continue after discharge: Yes 2. Supervision for safety required: Caregiver will need to provide time clock inspector supervision: Unobserved for brief periods of time [...] AM EDT Called Dr Bolivar's office at [phone] and spoke to Chica and she verified she received the faxed home care referral and will be sending that on to [facility] services with an order and [facility] [...] outpatient for postop 10 days. * Naun Nguyen PTA - 07/01/2025 9:55 AM EDT Physical Therapy Treatment Admit date: 06/28/2025 Today's Date: 07/01/2025 Patient Name/MR#: Joo Allen [id number] Current Room: [address] Admitting Diagnosis: Closed left hip fracture, initial encounter ([facility]) [S72.002A] Fall from standing, initial encounter [W19.XXXA] Intertrochanteric fracture, closed, left, initial encounter ([facility]) [S72.142A] Admitting Provider: Philip Farias MD PT Discharge Recommendations 1. Physical Therapy services recommended to continue after discharge: Yes 2. Supervision for safety required: Caregiver will need to provide time clock inspector supervision: Unobserved for brief periods of time [...] since last session Pain Assessment Pain Score: 2/10 Pain Location: L hip Pain Intervention: Repositioned, [...] DPT at 07/02/2025 8:27 AM EDT * Victoria Shirley, MOT, OTR/L - 07/01/2025 9:50 AM EDT Occupational Therapy Treatment Admit date: 06/28/2025 Today's Date: 07/01/2025 Patient Name/MR#: Joo Allen [id number] [address] Admitting Diagnosis: Closed left hip fracture, initial encounter ([facility]) [S72.002A] Fall from standing, initial encounter [W19.XXXA] Intertrochanteric fracture, closed, left, initial encounter ([facility]) [S72.142A] Admitting Provider: Philip Farias MD Past Medical/Surgical History: has a past medical history of Hypertension. has no past surgical history on file. OT Discharge Recommendations 1. Occupational Therapy services recommended to continue after discharge: Yes 2. Supervision for safety required: multimedia project manager supervision required: Unobserved for brief periods [...] Grooming GOAL: Will complete grooming/simple hygiene with: Clinton (standing) Treatment This Date: Grooming Status: Not Addressed During Today s Session LB Dressing GOAL: Will complete lower body (LB) dressing with: Modified independence Treatment This Date: LB Dressing Status: Addressed During Today s Session Task(s) Completed: Pt and family members verbalized no concerns with dressing, reporting obtaining ob gyn physician assistant to assist with LB dressing. Bathing GOAL: Will complete bathing with: Modified independence Treatment This Date: Bathing Status: Addressed During s Session Task(s) Completed: Pt and family educated on proper bathing techniques, including to not submerge surgical site in water, to complete only showers for bathing. All parties verbalized understanding. Toileting GOAL: Will complete toileting with: Clinton Treatment This Date: Toileting Status: Not Addressed [...] with Provider (Message sent to provider through [employer] Secure Chat) Plan OT Patient/Family Goal: I'm [...] Carrillo MD - 07/01/2025 9:31 AM EDT [facility] Progress Note Subjective: Interval History: Status postORIF of left peritrochanteric femur fracture with long cephalomedullary nail on 06/29/2025 Patient seen at bedside pain is tolerable BP dropped with therapy today and pt felt dizzy while working with therapy Hb 8.0 Continuous Infusions: 0.9 % sodium chloride irrigation Stopped (06/30/250) Objective: Vital signs in last 24 hours: Temp: [98.1 F (36.7 C)-98.2 F (36.8 C)] 98.2 F (36.8 C) Pulse: [77-96] 77 Resp: [16-18] 18 BP: (118-149)/(53-65) 149/53 Intake/Output last 3 shifts: I/O last 3 completed shifts: In: 2983 [P.O.:360; I.V.:2322.9; IV Piggyback:300.1] Out: 1575 [Urine:1575] Intake/Output this shift: No intake/output data recorded. Last BMP Result: Recent Labs Lab 07/01/25418 NA 131* K 4.5 CL 102 CO2 24 BUN 19 CREATININE 1.25 GLU 95 CALCIUM 8.0* Last CBC Result: Recent Labs Lab 07/01/25418 WBC 7.4 HEMOGLOBIN 8.0* HCT 23.1* PLT [...] Infusions: 0.9 % sodium chloride irrigation Stopped (06/30/250) PRN Meds:.0.9 % sodium chloride irrigation, acetaminophen, [...] left hip fracture, initial encounter ([facility]) Plan: Left hip fracture secondary [...] This chart entry has been completed using [employer] Dictation Software. While attempts have been made to ensure accuracy, certain words and phrases may not be entered as intended. * Jamila Ernst, PT - 07/01/2025 9:11 AM EDT Faxed home care referral to patients PCP, Sai Bolivar, per family request. Dr Bolivar's officewill send a home care referral once they find a raksul that is in network with his [employer] [...] Today's Date: 06/30/2025 Patient Name/MR#: Joo Allen [id number] [address] Admitting Diagnosis: Closed left hip fracture, initial encounter ([facility]) [S72.002A] Fall from standing, initial encounter [W19.XXXA] Intertrochanteric fracture, closed, left, initial encounter ([facility]) [S72.142A] Admitting Provider: Philip Farias MD Past Medical/Surgical History: has a past medical history of Hypertension. has no past surgical history on file. PT Discharge Recommendations 1. Physical Therapy services recommended to continue after discharge: Yes 2. Supervision for safety required: Caregiver will need to provide time clock inspector supervision: Unobserved for brief periods of time [...] Today's Date: 06/30/2025 Patient Name/MR#: Joo Allen [id number] Current Room: [address] Admitting Diagnosis: Closed left hip fracture, initial encounter ([facility]) [S72.002A] Fall from standing, initial encounter [W19.XXXA] Intertrochanteric fracture, closed, left, initial encounter ([facility]) [S72.142A] Admitting Provider: Philip Farias MD Past Medical/Surgical History: has a past medical history of Hypertension. has no past surgical history on file. OT Discharge Recommendations 1. Occupational Therapy services recommended to continue after discharge: Yes 2. Supervision for safety required: multimedia project manager supervision required: Unobserved for brief periods [...] Pt and family educated on use of ob gyn physician assistant for modified dressing, all parties verbalized understanding [...] 07/14/25 Grooming Will complete grooming/simple hygiene with: Clinton (standing) Grooming Goal Status: Progressing, ongoing Lower Body Dressing Will complete lower body (LB) dressing with: Modified independence LB Dressing Goal Status: Progressing, ongoing Bathing Will complete bathing with: Modified independence Bathing Goal Status: Progressing, ongoing Toileting Will complete toileting with: Clinton Toileting Goal Status: Progressing, ongoing Bed Mobility [...] not included. Joo Allen 38 Discharge Planning [facility] Liaison Date/Time of Admission : 06/28/2025 6:41 PM Patient presents with: Diagnosis *Closed left hip fracture, initial encounter ([facility]) Attending Provider: Baljinder Carrillo MD PCP: Sai Anderson MD PCP Room/Bed:F4456/D4203-I GLOS: ALOS:2 days :1940 Age:84 y.o. Plan A: plans home, looking for in [employer], 2ww ordered Plan B: Risk Stratification: 48 [...] Normal Routine Fall from standing, initial encounter [134062] 1 Specimen type Order Date -- 06/30/25 0597 Comments I certify that this patient is under my care and that I, a Nurse Practitioner, or a Physician [employer] working with me had a face to Face encounter that meets the physician encounter requirements. Based on these findings, I certify that this patient is confined to the home and needs intermittent snf care, physical therapy or speech therapy. The patient is under my care, and I have initiated the establishment of the care plan. This patient is to be followed by a physician who will periodically review the plan of care. Questions Question Answer Comment I certify that this patient is under my care and that I, a nurse practioner, or a physician certified pharmacist assistant working with me, had a face [...] recent surgery Gait imbalance and weakness Walker [[id number]] (Equipment) Order Class Order Status Priority Associated Dx Quantity Clinic Performed Normal Routine Fall from standing, initial encounter [522175] 1 Specimen type Order Date -- 06/30/25 [...] provided to patient and they have chosen [facility] as their provider of services. [facility] is not accepting his [employer] insurance at this time. Family to call [facility] and choose another provider. Patient provided with home care contact information and encouraged to contact if any further questions/concerns. Start PACC Note Home Health Referral Referral collaboration between home care music therapist and socially responsible investment adviser. Educated patient and spouse on Home Care and services available. Patient and spouse agreeable to Home Care. START PATIENT REGISTRATION INFORMATION Order Information Order Signing Physician: So Ramsey Service Ordered RN ?: Yes Service Ordered PT ?: Yes Service Ordered OT ?: Yes Service Ordered ST ?: No Service Ordered WOMENS HEALTH NURSE PRACTITIONER?: No Service Ordered INSTRUMENT PERSON?: No Following Physician: So Ramsey Following Physician Overseeing Physician: n/a Agreeable to Follow? Yes Date/Time of Call 06/30/25 3:00 PM Care Coordination Same Day SOC?: No Primary Care Physician: Sai Anderson MD Primary Care Physician Primary Care Physician Address: [address] [place] [address] PCP Visit Instructions: N/A Service Discharge Location Type: Home Service Facility Name: N/A Service Floor Facility: N/A Service Room No: N/A Demographics Patient Last Name: Renee Patient First Name: Joo Language/Communication Barrier: No Service Address: [address] [place] [address] Service City: [place] Service ST: [place] Service ZIP: [address] Service (home) Other phone numbers: [phone] No relevant phone numbers on file. Emergency Contact: Extended Emergency Contact Information Primary Emergency Contact: JEANNE ALLEN Address: [address] [place] [address] [facility] Relation: Spouse Admission Information Admit Date: 06/28/2025 Patient status at discharge: Inpatient Admitting Diagnosis: Closed left hip fracture, initial encounter ([facility]) [S72.002A] Fall from standing, initial encounter [W19.XXXA] Intertrochanteric fracture, closed, left, initial encounter ([facility]) [S72.142A] Caregiver Information Caregiver First Name: N/A Caregiver Last Name: N/A Caregiver Relationship to Patient: N/A Caregiver Phone Number: N/A Caregiver Notes: N/A Insurance Information Primary Insurance Information Primary Subscriber: Joo Allen Primary Subscriber Relation To Guarantor: Self Primary [...] Type: Secondary Subscriber 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 Date of Surgery: 06/28/2025 SURGEON: So Ramsey DO PREOP DX: Comminuted left peritrochanteric femur fracture POSTOP DX: Same PROCEDURES: ORIF of left peritrochanteric femur fracture with long cephalomedullary nail PHARMACIST MANAGER: None COMPLICATIONS: None ANESTHESIA: General EBL: 200 [...] to bear weight. He was brought to [facility] where x-rays of the l eft hip [...] traction boots and transferred over to the [place] traction table and placed in the supine [...] was placed in the distalmost holeusing perfect [place] technique. This hole was drilled and measured [...] daily for 6 weeks. Patient is from [facility] and will follow-up with a orthopedic surgery associated with [facility] or [facility] in 2 weeks. If they remain in the [place] area for rehab, I will be happy to see them back in clinic in 2 weeks for a wound check. Electronically signed So Ramsey DO 06/29/2025 [facility] Medicine Inpatient Group Progress Note Subjective: Interval History: Status postORIF of left peritrochanteric femur fracture with long cephalomedullary nail on 06/29/2025 Patient seen at bedside pain is tolerable Continuous Infusions: Infusions Meds 0.9 % sodium chloride 75 mL/hr (06/30/25539) 0.9 % sodium chloride irrigation lactated ringer's Stopped (06/29/25 1606) Objective: Vital signs in last 24 hours: [...] Last CBC Result: Recent Labs Lab 06/29/25 043 WBC 9.7 HEMOGLOBIN 10.7* HCT 31.2* PLT [...] Meds 0.9 % sodium chloride 75 mL/hr (06/30/25539) 0.9 % sodium chloride irrigation lactated ringer's Stopped (06/29/25 1607) PRN Meds:. PRN Medications 0.9 % sodium [...] left hip fracture, initial encounter ([facility]) Plan: Left hip fracture secondary [...] This chart entry has been completed using [employer] Dictation Software. While attempts have been made [...] Yes Discharge Date PENDING Referral Source (PACC/Hospital/Unit) ZAIN Vincent Date 06/30/25 3:00 PM End PACC [...] Carrillo MD - 06/30/2025 9:44 AM EDT [facility] Inpatient Group Progress Note Subjective: Interval History: Status postORIF of left peritrochanteric femur fracture with long cephalomedullary nail on 06/29/2025 Patient seen at bedside pain is tolerable Continuous Infusions: 0.9 % sodium chloride 75 mL/hr (06/30/25 0540) 0.9 % sodium chloride irrigation lactated ringer's Stopped (06/29/25 1604) Objective: Vital signs in last 24 hours: [...] This chart entry has been completed using [employer] Dictation Software. While attempts have been made to ensure accuracy, certain words and phrases may not be entered as intended. * Dimitri Vasquez RN - 06/29/2025 5:28 PM EDT Patient returned from surgery. AOx4. VSS. Tylenol given. Drinking fluids. Surgical dressing. Clean,dry, intact. * AKHIL Hunter, OTR/L - 06/29/2025 12:36 PM EDT Occupational Therapy Evaluation Attempt Admit date: 06/28/2025 Today's Date: 06/29/2025 Patient Name/MR#: Joo Allen [id number] Current Room: [address] Admitting Diagnosis: Closed left hip fracture, initial encounter ([facility]) [S72.002A] Fall from standing, initial encounter [W19.XXXA] Intertrochanteric fracture, closed, left, initial encounter ([facility]) [S72.142A] Admitting Provider: Philip Farias MD Evaluation Attempt Date Initial Eval Attempted: 06/29/25 Time Initial Eval Attempted: 1235 Reason Eval Not Completed: Therapy medically contraindicated at current time (pt with acute hip fx,sx pending.) * Baljinder Carrillo MD - 06/29/2025 9:38 AM EDT [facility] Inpatient [facility] Progress Note Subjective: Interval [...] 8.0* Last CBC Result: Recent Labs Lab 06/29/25431 WBC 9.7 HEMOGLOBIN 10.7* HCT 31.2* PLT [...] left hip fracture, initial encounter ([facility]) Plan: Left hip fracture secondary [...] This chart entry has been completed using [employer] Dictation Software. While attempts have been made to ensure accuracy, certain words and phrases may not be entered as intended. * Jack Holt PT Student - 06/29/2025 8:35 AM EDT Physical Therapy Evaluation Attempt Admit date: 06/28/2025 Today's Date: 06/29/2025 Patient Name/MR#: Joo Allen [id number] Current Room: [address] Admitting Diagnosis: Closed left hip fracture, initial encounter ([facility]) [S72.002A] Fall from standing, initial encounter [W19.XXXA] Intertrochanteric fracture, closed, left, initial encounter ([facility]) [S72.142A] Admitting Provider: Philip Farias MD Evaluation Attempt Date Initial Eval Attempted: 06/29/25 Time Initial Eval Attempted: 830 Reason Eval Not Completed: Therapy medically contraindicated at current time (Pt scheduled for cephalomedullary nail fixation of left hip, MD Loren Mortensen. PT to hold until pt cleared.) Cosigned by Christianne Dennis PT, DPT at 06/29/2025 1:05 PM EDT Associated attestation - Christianne Dennis, PT, DPT - 06/29/2025 1:05 PM EDT [...] assessment: Yessy Norris NA documented in this encounterPremier [facility]10-17-2025 NoteEncounter Department: [facility] ACUTE CARE ORTHOPEDICS 4 MAIN Discharge Summary by Baljinder Carrillo MD at 07/02/2025 12:11 PM Author: SHAE Moultonervice: HospitalistAuthor Type: Physician Filed: 07/02/2025 12:19 PMDate of Service: 07/02/2025 12:11 PMStatus: Addendum Surgery Specialist: Baljinder Carrillo MD (Physician) Related Notes: Original Note by Baljinder Carrillo MD (Physician) filed at 07/02/2025 12:19 PM [facility] Discharge Summary Patient ID: Joo Allen [id number] y.o. 1940 Admit date: 06/28/2025 Discharge date and time: 07/02/2025 Admitting Physician: Philip Farias MD Discharge Physician: Baljinder Carrillo MD Discharge Diagnoses: Problem List Patient Active Problem List Diagnosis -Closed left hip fracture, initial encounter (HCC) Left hip fracture status post mechanical fall [...] EXAM: XR-HIP LEFT 1 VIEW WO/ PELVIS [id number] DATE OF SERVICE: 06/29/2025 3:52 pm DEMOGRAPHICS: [...] Deleon DO, 06/29/2025 5:30 PM Dictation workstation: [id number] XR-HIP UNI LEFT 2/3 VIEWS W/PELVIS Result Date: 06/28/2025 EXAM: XR-HIP UNI LEFT 2/3 VIEWS W/PELVIS [id number] DATE OF SERVICE: 06/28/2025 7:56 pm DEMOGRAPHICS: [...] Saeed DO, 06/28/2025 8:16 PM Dictation workstation: [id number] XR-ELBOW LEFT 3 OR MORE VIEWS Result Date: 06/28/2025 EXAM: XR-ELBOW LEFT 3 OR MORE VIEWS [id number] DATE OF SERVICE: 06/28/2025 7:55 pm DEMOGRAPHICS: [...] Kirkland DO, 06/28/2025 8:12 PM Dictation workstation: [id number] CT-SPINE CERVICAL WO CONTRAST Result Date: 06/28/2025 EXAM: CT-SPINE CERVICAL WO CONTRAST [id number] DATE OF SERVICE: 06/28/2025 7:37 pm DEMOGRAPHICS: Age: 84 y/o M HISTORY: fall fall on ASA COMPARISON: No existing relevant imaging study corresponding to the same anatomical region is available. TECHNIQUE: DOSE OPTIMIZATION: CT radiation dose optimization techniques (automated exp (more content not included)...[facility]10-17-2025 Hospital course Narrative* Baljinder Carrilol MD - 07/02/2025 12:11 PM EDT Images from the original note were not included. [facility] Inpatient Group Discharge Summary Patient ID: Joo Allen [id number] 84 y.o. 1940 Admit date: 06/28/2025 Discharge [...] EXAM: XR-HIP LEFT 1 VIEW WO/ PELVIS [id number] DATE OF SERVICE: 06/29/2025 3:52 pm DEMOGRAPHICS:Age: [...] Leonard Deleon DO, 06/29/2025 5:30 PM Dictation workstation:[id number] XR-HIP UNI LEFT 2/3 VIEWS W/PELVIS Result Date: 06/28/2025 EXAM: XR-HIP UNI LEFT 2/3 VIEWS W/PELVIS [id number] DATE OF SERVICE: 06/28/2025 7:56 pm DEMOGRAPHICS: [...] words, phrases or sentences. Electronically Signed by: Salú Saeed DO, 06/28/2025 8:16 PM Dictation workstation: [id number] XR-ELBOW LEFT 3 OR MORE VIEWS Result Date: 06/28/2025 EXAM: XR-ELBOW LEFT 3 OR MORE VIEWS [id number] DATE OF SERVICE: 06/28/2025 7:55 pm DEMOGRAPHICS:Age: [...] Kirkland DO, 06/28/2025 8:12 PM Dictation workstation: [id number] CT-SPINE CERVICAL WO CONTRAST Result Date: 06/28/2025 EXAM: CT-SPINE CERVICAL WO CONTRAST [id number] DATE OF SERVICE: 06/28/2025 7:37 pm DEMOGRAPHICS:Age: [...] osteophyte complexes at C3-4, C4-5, and C6-7. 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 Multilevel foraminal [...] Covarrubias MD, 06/28/2025 8:03 PM Dictation workstation: [id number] CT-HEAD W/O CONTRAST Result Date: 06/28/2025 EXAM: CT-HEAD W/O CONTRAST [id number] DATE OF SERVICE: 06/28/2025 7:37 pm DEMOGRAPHICS: [...] Pelaez MD, 06/28/2025 7:55 PM Dictation workstation: [id number] CA ECHO DOPPLER COMPLETE Result Date: 06/02/2025 [place] [address] Cardiology Report Signed Patient: JOO ALLEN MR#: [id number] : 1940 Acct:[id number] Age/Sex: 84 / M ADM Date: 06/02/25 Loc: CARD Attending Dr: VALERIA STOKES APRN Ordering Physician: VALERIA STOKES APRN Date of Service: 0 06/02/25 Procedure(s): CA echo doppler complete Accession Number(s): [id number] cc: SAI ANDERSON ; VALERIA STOKES APRN Patient Name: JOO ALLEN MR#: [id number] : 1940 Exam Date: 06/02/2025 Ordering Doctor: VALERIA STOKES [facility] ECHOCARDIOGRAM REPORT PROCEDURE: CA ECHO DOPPLER [...] Area (VTI): 2.47 cm2, 2.54 cm2 Deceleration Meagher: 3.57 m/s2, 2.15 m/s2 Pressure Half-Time: 379.59 [...] Signed By: 06/02/25 1239 DD/ 1238 TD/TT: Guest Services Attendant: Procedures: Status postORIF of left peritrochanteric femur fracture with long cephalomedullary nailon 06/29/2025 Last BMP Result: Recent Labs Lab 07/02/25 0425 NA 131* K 4.7 CL 101 CO2 [...] mechanical fall. Patient stated he was at [facility], spouse and him were leaving spouse tripped [...] this hospitalization patient is hemodynamically stable tolerating dietetics professor and staff in agreement with the discharge [...] Your Medications These medications were sent to [facility], [place] - [address], [place] [address] Hours: M-F 7am-5pm aspirin 325 mg Cap [...] fracture, initial encounter (HCC) documented in this [facility]Prem[facility]-2025 NoteEncounter Department: [facility] ORTHOPEDICS 4 MAIN Progress Notes by TIM Sandoval at 07/02/2025 11:03 AM Author: TIM SandovalSer: OT TreatmentAuthor Type: [employer]aker Surveying Filed: 07/02/2025 4:11 PMDate of Service: 07/02/2025 11:03 AMStatus: Signed Surgery Specialist: TIM Sandoval ([employer])Cosigner: AKHIL Azevedo OTR/Chaparrita at 07/05/2025 7:36 AM Occupational Therapy Treatment Admit date: 06/28/2025 Today's Date: 07/02/2025 Patient Name/MR#: Joo Allen [id number] Current Room: [address] Admitting Diagnosis: Closed left hip fracture, initial encounter (HCC) [S72.002A] Fall from standing, initial encounter [W19.XXXA] Intertrochanteric fracture, closed, left, initial encounter ([facility]) [S72.142A] Admitting Provider: Philip Farias MD Past Medical/Surgical History: has a past medical history of Hypertension. has no past surgical history on file. OT Discharge Recommendations 1. Occupational Therapy services recommended to continue after discharge: Yes 2. Supervision for safety required: multimedia project manager supervision required: Unobserved for brief periods [...] Details Oxygen Delivery Device: RA Activity ResponseHRBPRSpO2 [id number]/55 During Activity Post [id number]/52 Observations: denies adverse s/s, vitals monitored. Notice [...] Grooming GOAL: Will complete grooming/simple hygiene with: Clinton (standing) Treatment This Date: Grooming Status: Not Addressed During Today?s Session UB Dressing GOAL: Treatment This Date: LB Dressing GOAL: Will complete lower body (LB) dressing with: Modified independence Treatment This Date: LB Dressing Status: Progressing, ongoing LB Dressing Assist Level: Minimal assist Assistance Required for: Use of adaptive equipment Task(s) Completed: pt educated and provided with visual demo on ob gyn physician assistant and sock aid for LB dressing. pt utilizes ob gyn physician assistant to doff socks and sock aid to don. pt/family educated where to obtain equipment post dc P (more content not included)...[facility]10-17-2025 Plan of care note* Care Plan [...] and comfort Plan hr rounding and meds [facility]10-17-2025 Miscellaneous Notes* Care Plan - Devaughn Torres [...] rounding and meds * Care Plan - Dimirti Vasquez RN - 06/30/2025 5:20 PM EDT [...] hr rounding and meds documented in this encounterPremier [facility]10-17-2025 NoteEncounter Department: [facility] 4 MAIN Progress Notes by Devaughn Torres RN at 07/02/2025 12:57 AM Author: PEPITO Crespoervice: Nursing HandoffAuthor Type: Registered Nurse Filed: 07/02/2025 12:59 AMDate of Service: 07/02/2025 12:57 AMStatus: Signed Surgery Specialist: Devaughn Torres RN (Registered Nurse) From 1945. Patient reports tolerable pain, VSS. Patient remains alert/oriented. Left hip dressings are appropriate. See flowsheets for additional documentation.[facility]10-16-2025 NoteEncounter Department: [facility] 4 MAIN Progress Notes by Nneka Wilson RN at 07/01/2025 7:09 PM Author: PEPITO Swartzervice: -Author Type: Registered Nurse Filed: 07/01/2025 7:10 PMDate of Service: 07/01/2025 7:09 PMStatus: Signed Surgery Specialist: Nneka Wilson RN (Registered Nurse) 07/01/25 8479 Wound/Ostomy Does patient have the following:Surgical incision 4 Eyes/4 Hours All pressure points have been assessedAssessment complete - no pressure injury found Pressure point review attestation (Enter Full Name)Lise Kenyon RNCleveland Clinic Fairview Hospital10-16-2025 Plan of care note* Care Plan [...] and comfort Plan hr rounding and meds [facility]10-[facility]-2025 NoteEncounter Department: [facility] 4 MAIN Progress Notes by Aline Rogers PA-C at 07/01/2025 11:27 AM Author: Meagan Parikhrvice: -Author Type: Physician Semiconductor Bonder Filed: 07/01/2025 11:29 AMDate of Service: 07/01/2025 11:27 AMStatus: Signed Surgery Specialist: Aline Rogers PA-C ([employer]ician [employer]) Orthopedic progress note: Postop day : Cephalomedullary [...] discharge. Follow-up outpatient for postop 10 days. [facility]10-16-2025 NoteEncounter Department: [facility] 4 MAIN Progress Notes by Naun Nguyen PTA at 07/01/2025 9:55 AM Author: Naun Nguyen PTAService: PT TreatmentAuthor Type: Tilt Wall Supervisor Filed: 07/01/2025 9:56 AMDate of Service: 07/01/2025 9:55 AMStatus: Signed Surgery Specialist: Naun Nguyen PTA (Tilt Wall Supervisor)Cosigner: Christianne Dennis PT, DPT at 07/02/2025 8:27 AM Physical Therapy Treatment Admit date: 06/28/2025 Today's Date: 07/01/2025 Patient Name/MR#: Joo Allen [id number] Current Room: [address] Admitting Diagnosis: Closed left hip fracture, initial encounter ([facility]) [S72.002A] Fall from standing, initial encounter [W19.XXXA] Intertrochanteric fracture, closed, left, initial encounter ([facility]) [S72.142A] Admitting Provider: Philip Farias MD PT Discharge Recommendations 1. Physical Therapy services recommended to continue after discharge: Yes 2. Supervision for safety required: Caregiver will need to provide time clock inspector supervision: Unobserved for brief periods of time [...] since last session Pain Assessment Pain Score: 2/10 Pain Location: L hip Pain Intervention: Repositioned, [...] Right/Left Status: Not Addres (more content not included)...[facility]10-16-2025 NoteEncounter Department: [facility] ORTHOPEDICS 4 MAIN Progress Notes by AKHIL Azevedo OTR/Chaparrita at 07/01/2025 9:50 AM Author: AKHIL Azevedo OTR/LService: OT TreatmentAuthor Type: Occupational Therapist Filed: 07/01/2025 9:51 AMDate of Service: 07/01/2025 9:50 AMStatus: Signed Surgery Specialist: AKHIL Azevedo OTR/L (Occupational Therapist) Occupational Therapy Treatment Admit date: 06/28/2025 Today's Date: 07/01/2025 Patient Name/MR#: Joo Allen [id number] [address] Ad[address] Diagnosis: Closed left hip fracture, initial encounter ([facility]) [S72.002A] Fall from standing, initial encounter [W19.XXXA] Intertrochanteric fracture, closed, left, initial encounter ([facility]) [S72.142A] Admitting Provider: Philip Farias MD Past Medical/Surgical History: has a past medical history of Hypertension. has no past surgical history on file. OT Discharge Recommendations 1. Occupational Therapy services recommended to continue after discharge: Yes 2. Supervision for safety required: multimedia project manager supervision required: Unobserved for brief periods [...] min activity with mult (more content not included)...[facility]10-16-2025 NoteEncounter Department: [facility] ORTHOPEDICS 4 MAIN Progress Notes by Baljinder Carrillo MD at 07/01/2025 9:31 AM Author: SHAE Moultonervice: HospitalistAuthor Type: Physician Filed: 07/01/2025 12:18 PMDate of Service: 07/01/2025 9:31 AMStatus: Signed Surgery Specialist: Baljinder Carrillo MD (Physician) [facility] Progress Note Subjective: Interval [...] Recent Labs Lab07/01/25 0419 WBC7.4 HEMOGLOBIN8.0* HCT23.1* MBX539 RBC2.37* No results for input(s): PROTIME , [...] acetaminophen, ROPivacaine (PF) Physical Exam: Vitals: 06/30/25 616279/ 859224 302207/ 1149 BP:137/65(!) 127/54(!) 149/53 Pulse:8877 Resp:[id number] Temp:98.1 ?F (36.7 ?C)98.2 ?F (36.8 ?C) SpO2:99%100% Weight: Height: General appearance : Comfortable male L:CTA, no W/R/R, not labored H:RRR, S1S2 Abd:Soft ND/NT, normal BS Ext: Left hip surgical site clean and dry covered with Aquacel Orders Placed This Encounter Procedures -Diet-Regular Assessment: Principal Problem: Closed left hip fracture, initial encounter ([facility]) Plan: Left hip fracture secondary [...] This chart entry has been completed using [employer] Dictation Software. While attempts have been made to ensure accuracy, certain words and phrases may not be entered as intended.[facility]10-16-2025 Plan of care note* Care Plan [...] and comfort Plan hr rounding and meds [facility]10-16-2025 NoteEncounter Department: [facility] ORTHOPEDICS 4 MAIN Progress Notes by Devaughn Torres RN at 07/01/2025 12:56 AM Author: PEPITO Crespoervice: Nursing HandoffAuthor Type: Registered Nurse Filed: 07/01/2025 12:58 AMDate of Service: 07/01/2025 12:56 AMStatus: Signed Surgery Specialist: Devaughn Torres RN (Registered Nurse) From 1950. Patient denies complaints. VSS. Patient is alert/oriented. Left leg dressings remain clean, dry and intact. Family is at bedside. Documentation per flowsheets.[facility]10-15-2025 Plan of care note* Care Plan [...] See Vital Signs Complex Assessment flowsheet and [facility] for intervention documentation. Goals/Plan for shift Patient/Family stated goal for shift: pain control and moving the leg Nursing goal for shift: pain control, safety and comfort Plan: hrly rounding, meds Goals/Plan for Hospital Stay Patient/Family stated goal for hospital stay: safety and comfort Nursing goal for hospital stay: safety and comfort Plan hr rounding and meds [facility]10-15-2025 NoteEncounter Department: [facility] CARE ORTHOPEDICS 4 MAIN Progress Notes by Aline Rogers PA-C at 06/30/2025 12:37 PM Author: SHALINI ParikhCService: -Author Type: Physician Semiconductor Bonder Filed: 06/30/2025 12:39 PMDate of Service: 06/30/2025 12:37 PMStatus: Signed Surgery Specialist: Aline Rogesr PA-C ([employer]ician [employer]) Orthopedic progress note: Postop day : Cephalomedullary Nail, Left Hip Patient seen at bedside reports pain is well-controlled. He has not yet been up with therapy today. He may continue to be weightbearing as tolerated to the left lower extremity. Continue with anticoagulation, therapies as tolerated, discharge planning and pain control. We will reassess his ability to be discharged after therapy is completed.[facility]10-15-2025 NoteEncounter Department: [facility] CARE ORTHOPEDICS 4 MAIN Progress Notes by Baljinder Carrillo MD at 06/30/2025 9:44 AM Author: SHAE Moultonervice: HospitalistAuthor Type: Physician Filed: 06/30/2025 1:10 PMDate of Service: 06/30/2025 9:44 AMStatus: Signed Surgery Specialist: Baljinder Carrillo MD (Physician) [facility] Progress Note Subjective: Interval History: Status postORIF of left peritrochanteric femur fracture with long cephalomedullary nail on 06/29/2025 Patient seen at bedside pain is tolerable Continuous Infusions: -0.9 % sodium nxbowebo87 mL/hr (06/30/25 0540) -0.9 % sodium chloride irrigation -lactated ringer'sStopped (06/29/25 4544) Objective: Vital signs in last 24 hours: [...] CBC Result: Recent Labs Lab06/29/25 0432 WBC9.7 MHBTLVTOQU00.7* HCT31.2* RAY616 RBC3.20* No results for input(s): PROTIME , [...] -ROPivacaine (PF) Continuous Infusions: -0.9 % sodium raqnelcz40 mL/hr (06/30/25 0540) -0.9 % sodium chloride irrigation -lactated ringer'sStopped (06/29/25 1604) PRN Meds:.0.9 % sodium chloride irrigation, acetaminophen, docusate, HYDROmorphone, ketorolac, melatonin, ondansetron OR ondansetron, oxyCODONE-acetaminophen, oxyCODONE-acetaminophen, ROPivacaine (PF) Physical Exam: Vitals: 06/30/25 209468 67203006/30/25 36855606/30/25 1045 BP:139/68 Pulse: Resp:304965 Temp: SpO2: Weight: Height: General appearance : [...] This chart entry has been completed using [employer] Dictation Software. While attempts have been made to ensure accuracy, certain words and phrases may not be entered as intended.[facility]10-15-2025 Plan of care note* Care Plan [...] and comfort Plan hr rounding and meds [facility]10-14-2025 Plan of care note* Care [...] and comfort Plan hr rounding and meds [facility]10-14-2025 NoteEncounter Department: [facility] CARE ORTHOPEDICS 4 MAIN Progress Notes by Dimitri Vasquez RN at 06/29/2025 5:28 PM Author: PEPITO Dobsonervice: Nursing HandoffAuthor Type: Registered Nurse Filed: 06/29/2025 5:29 PMDate of Service: 06/29/2025 5:28 PMStatus: Signed Surgery Specialist: Dimitri Vasquez RN (Registered Nurse) Patient returned from surgery. AOx4. VSS. Tylenol given. Drinking fluids. Surgical dressing. Clean, dry, intact.[facility]10-14-2025 Procedure note* Op Note - So Ramsey DO - 06/29/2025 4:25 PM EDT ORTHOPEDIC OPERATIVE NOTE Name: Joo Allen : 1940 CSN: [id number] Surgeon: So Ramsey DO, DO Facility: [facility] Date of Surgery: 06/28/2025 SURGEON: So Ramsey DO PREOP DX: Comminuted left peritrochanteric femur fracture POSTOP DX: Same PROCEDURES: ORIF of left peritrochanteric femur fracture with long cephalomedullary nail PHARMACIST MANAGER: None COMPLICATIONS: None ANESTHESIA: General EBL: 200 [...] to bear weight. He was brought to [facility] where x-rays of the l eft hip [...] traction boots and transferred over to the [place] traction table and placed in the supine [...] was placed in the distalmost holeusing perfect [place] technique. This hole was drilled and measured [...] daily for 6 weeks. Patient is from [facility] and will follow-up with a orthopedic surgery associated with [facility] or [facility] in 2 weeks. If they remain in the [place] area for rehab, I will be happy to see them back in clinic in 2 weeks for a wound check. Electronically signed So Ramsey DO 06/29/2025 [facility]10-14-2025 Surgical operation note* Op Note - So Ramsey DO - 06/29/2025 4:25 PM EDT ORTHOPEDIC OPERATIVE NOTE Name: Joo Allen : 1940 CSN: [id number] Surgeon: So Ramsey DO, DO Facility: [facility] Date of Surgery: 06/28/2025 SURGEON: So Ramsey DO PREOP DX: Comminuted left peritrochanteric femur fracture POSTOP DX: Same PROCEDURES: ORIF of left peritrochanteric femur fracture with long cephalomedullary nail PHARMACIST MANAGER: None COMPLICATIONS: None ANESTHESIA: General EBL: 200 [...] to bear weight. He was brought to [facility] where x-rays of the l eft hip [...] traction boots and transferred over to the [place] traction table and placed in the supine [...] was placed in the distalmost holeusing perfect [place] technique. This hole was drilled and measured [...] daily for 6 weeks. Patient is from [facility] and will follow-up with a orthopedic surgery associated with [facility] or [facility] in 2 weeks. If they remain in the [place] area for rehab, I will be happy to see them back in clinic in 2 weeks for a wound check. Electronically signed So Ramsey DO 06/29/2025 documented in this [facility]10-14-2025 Attending History and physical note* So Ramsey DO - 06/29/2025 1:20 PM EDT Joo Renee Date/Time of Admission: 06/28/2025 6:41 PM CSN: [id number]; Attending Provider: Baljinder Carrillo MD Room/Bed: F4456/R1882-T : 1940 Age: 84 y.o. H&P Interval [...] DO 06/29/2025 . Source Note - Luis Lionel Coonin, HAWK-BLUE LEATHER SORTER - 06/28/2025 8:39 PM EDT [facility]patient [facility] History and Physical Chief Complaint: Fall HPI:Joo Allen is an 84 y.o. male, past medical history of hypertension, obstructive sleep apneaon CPAP, presents after mechanical fall. Patient stated he was at [facility], spouse and him were leaving spouse tripped [...] at 75 mL/h. -Orthopedic surgery consulted. # Ijzrdkqpipxy-715-KAL. -IVF-NS at 75 mL per hour. # Hypertension. -Maintain SBP less than 160. # Obstructive sleep apnea. -CPAP at night. # Anticoagulations held for possible surgery in AM. # GI prophylaxis with IV Protonix 40 mg daily. 30 minutes time spent in direct patient interaction/assessment/history and physical examination/documentation. EMELIA Santana 06/28/2025 Cosigned by Baljinder Carrillo MD at 06/29/2025 7:47 AM EDT [facility]10-14-2025 History and physical note* So Ramsey DO - 06/29/2025 1:20 PM EDT Joo Allen Date/Time of Admission: 06/28/2025 6:41 PM CSN: [id number]; Attending Provider: Baljinder Carrillo MD Room/Bed: [address] : 1940 Age: 84 y.o. H&P Interval [...] Ramsey DO 06/29/2025 . Source Note - EMELIA Santana - 06/28/2025 8:39 PM EDT [facility] History and Physical Chief Complaint: Fall HPI:Joo Allen is an 84 y.o. male, past medical history of hypertension, obstructive sleep apneaon CPAP, presents after mechanical fall. Patient stated he was at [facility], spouse and him were leaving spouse tripped [...] at 75 mL/h. -Orthopedic surgery consulted. # Pflelfqipwbl-359-ZGJ. -IVF-NS at 75 mL per hour. # [...] Eduardo Mortensen DO 06/29/2025 10:09 AM * Luis Handley, TUG BOAT ENGINEER-BLUE LEATHER SORTER - 06/28/2025 8:39 PM EDT [facility] History and Physical Chief Complaint: Fall HPI:Joo Allen is an 84 y.o. male, past medical history of hypertension, obstructive sleep apneaon CPAP, presents after mechanical fall. Patient stated he was at [facility], spouse and him were leaving spouse tripped [...] at 75 mL/h. -Orthopedic surgery consulted. # Ttcwaugjfkwt-277-IRR. -IVF-NS at 75 mL per hour. # [...] 06/29/2025 7:47 AM EDT documented in this encounterPrem[facility]10-[facility]25 History and physical note * Eduardo Mortensen, DO - 06/29/2025 10:09 AM EDT History and Physical completed within 30 days was reviewed and the patient examined with no changes. The likelihood and severity of risks, benefits and alternative procedures, treatments or therapies were explained. Eduardo Mortensen DO 06/29/2025 10:09 AM [facility] Work Phone: [phone] NoteEncounter Department: [facility] ACUTE [facility] ORTHOPEDICS 4 MAIN HANDP by Eduardo Mortensen DO at 06/29/2025 10:09 AM Author: Yordan Manzanorvice: OrthopedicsAuthor Type: Physician Filed: 06/29/2025 10:09 AMDate of Service: 06/29/2025 10:09 AMStatus: Signed Surgery Specialist: Eduardo Mortensen DO (Physician) History and Physical completed within 30 days was reviewed and the patient examined with no changes. The likelihood and severity of risks, benefits and alternative procedures, treatments or therapies were explained. Eduardo Mortensen DO 06/29/2025 10:09 AM[facility]10-[facility] Consult note* Eduardo Mortensen DO - 06/29/2025 10:06 AM EDTAssociated Order(s): ED CONTACT ORDER; IP CONSULT TO ORTHOPEDIC SURGERY Orthopedic Consult Note: Chief Complaint: I fell and hurt my hip History of Present Illness: Patient is an 84-year-old who fell at [facility] last night when he was getting up [...] head on the table potentially. BP: 140/63 (10/14 0832) Temp: 98.1 F (36.7 C) (06/29 832) [...] Social Drivers of Health Received from [facility] Safety & Environment History reviewed. No pertinent family history. Imaging: Results for orders placed or performed during the hospital encounter of 06/28/25 XR-HIP UNI LEFT 2/3 VIEWS W/PELVIS Narrative EXAM: XR-HIP UNI LEFT 2/3 VIEWS W/PELVIS [id number] DATE OF SERVICE: 06/28/2025 7:56 pm DEMOGRAPHICS: [...] Saeed DO, 06/28/2025 8:16 PM Dictation workstation: [id number] CT-HEAD W/O CONTRAST Narrative EXAM: CT-HEAD W/O CONTRAST [id number] DATE OF SERVICE: 06/28/2025 7:37 pm DEMOGRAPHICS: [...] Pelaez MD, 06/28/2025 7:55 PM Dictation workstation: [id number] CT-SPINE CERVICAL WO CONTRAST Narrative EXAM: CT-SPINE CERVICAL WO CONTRAST [id number] DATE OF SERVICE: 06/28/2025 7:37 pm DEMOGRAPHICS: [...] osteophyte complexes at C3-4, C4-5, and C6-7. Gkyt-jl-afdbploi central canal stenosis at C5-6. Multilevel foraminal [...] Covarrubias MD, 06/28/2025 8:03 PM Dictation workstation: [id number] XR-ELBOW LEFT 3 OR MORE VIEWS Narrative EXAM: XR-ELBOW LEFT 3 OR MORE VIEWS [id number] DATE OF SERVICE: 06/28/2025 7:55 pm DEMOGRAPHICS: [...] Kirkland DO, 06/28/2025 8:12 PM Dictation workstation: [id number] Impression: Intertrochanteric trope femur fracture with gross displacement and comminution. Plan: Intermedullary nailing left femur. Patient will be n.p.o., TXA and Ancef were ordered preoperatively, anticoagulation was held. Thank you for allowing me to participate in the care of this patient. Please do not hesitate to call with any questions or concerns, Sincerely. Dr. Vernon Office Eduardo AguilarDO [place] 06/29/2025 [facility]10-14-2025 Consult note* Eduardo Mortensen DO - 06/29/2025 10:06 AM EDTAssociated Order(s): ED CONTACT ORDER; IP CONSULT TO ORTHOPEDIC SURGERY Orthopedic Consult Note: Chief Complaint: I fell and hurt my hip History of Present Illness: Patient is an 84-year-old who fell at [facility] last night when he was getting up [...] % (06/29 832) FiO2 (%): 21 % (06/290) O2 Flow Rate (L/min): -- Cardiac (WDL): [...] Social Drivers of Health Received from [facility] Safety & Environment History reviewed. No pertinent family history. Imaging: Results for orders placed or performed during the hospital encounter of 06/28/25 XR-HIP UNI LEFT 2/3 VIEWS W/PELVIS Narrative EXAM: XR-HIP UNI LEFT 2/3 VIEWS W/PELVIS [id number] DATE OF SERVICE: 06/28/2025 7:56 pm DEMOGRAPHICS: [...] Saeed DO, 06/28/2025 8:16 PM Dictation workstation: [id number] CT-HEAD W/O CONTRAST Narrative EXAM: CT-HEAD W/O CONTRAST [id number] DATE OF SERVICE: 06/28/2025 7:37 pm DEMOGRAPHICS: [...] Pelaez MD, 06/28/2025 7:55 PM Dictation workstation: [id number] CT-SPINE CERVICAL WO CONTRAST Narrative EXAM: CT-SPINE CERVICAL WO CONTRAST [id number] DATE OF SERVICE: 06/28/2025 7:37 pm DEMOGRAPHICS: [...] osteophyte complexes at C3-4, C4-5, and C6-7. Amtj-xm-svrhojkj central canal stenosis at C5-6. Multilevel foraminal [...] Covarrubias MD, 06/28/2025 8:03 PM Dictation workstation: [id number] XR-ELBOW LEFT 3 OR MORE VIEWS Narrative EXAM: XR-ELBOW LEFT 3 OR MORE VIEWS [id number] DATE OF SERVICE: 06/28/2025 7:55 pm DEMOGRAPHICS: [...] Kirkland DO, 06/28/2025 8:12 PM Dictation workstation: [id number] Impression: Intertrochanteric trope femur fracture with gross displacement and comminution. Plan: Intermedullary nailing left femur. Patient will be n.p.o., TXA and Ancef were ordered preoperatively, anticoagulation was held. Thank you for allowing me to participate in the care of this patient. Please do not hesitate to call with any questions or concerns, Sincerely. Dr. Vernon Office Eduardo Mortensen DO 06/29/2025 documented in this encounterPremier Health Atrium Medical Center10-14-2025 NoteEncounter Department: [facility]UTE [facility]ARE ORTHOPEDICS 4 MAIN Progress Notes by Baljinder Carrillo MD at 06/29/2025 9:38 AM Author: SHAE Moultonervice: HospitalistAuthor Type: Physician Filed: 06/29/2025 12:53 PMDate of Service: 06/29/2025 9:38 AMStatus: Signed Surgery Specialist: Baljinder Carrillo MD (Physician) [facility] Medicine Inpatient Group Progress Note Subjective: Interval [...] CBC Result: Recent Labs Lab06/29/25 0432 WBC9.7 FJUUBVNRND24.7* HCT31.2* AUN554 RBC3.20* No results for input(s): PROTIME , [...] ondansetron, ROPivacaine (PF) Physical Exam: Vitals: 06/29/25 677318 [id number]/29/25 41628606/29/25 1142 BP:(!) 140/63(!) 140/29205/63 Pulse:6673 Resp:[id number] Temp:98.1 ?F (36.7 ?C)98.1 ?F (36.7 ?C)98.1 ?F (36.7 ?C) SpO2:98%100%100% Weight: Height: General appearance : L:CTA, no W/R/R, not labored H:RRR, S1S2 Abd:Soft ND/NT, normal BS Ext: no edema Orders Placed This Encounter Procedures -Diet-NPO -Diet-NPO After Midnight Nothing By Mouth-NPO Assessment: Principal Problem: Closed left hip fracture, initial encounter ([facility]) Plan: Left hip fracture secondary [...] This chart entry has been completed using [employer] Dictation Software. While attempts have been made to ensure accuracy, certain words and phrases may not be entered as intended.[facility]10-14-2025 Plan of care note* Care Plan [...] See Vital Signs Complex Assessment flowsheet and [facility] for intervention documentation. Goals/Plan for shift Patient/Family stated goal for shift: safety and comfort Nursing goal for shift: safety and comfort Plan: hr rounding and meds Goals/Plan for Hospital Stay Patient/Family stated goal for hospital stay: safety and comfort Nursing goal for hospital stay: safety and comfort Plan hr rounding and meds [facility]10-14-2025 NoteEncounter Department: [facility] ACUTE CARE ORTHOPEDICS 4 MAIN Progress Notes by Sherrill Cox RN at 06/29/2025 12:19 AM Author: PEPITO Walkerervice: -Author Type: Registered Nurse Filed: 06/29/2025 12:20 AMDate of Service: 06/29/2025 12:19 AMStatus: Signed Surgery Specialist: Sherrill Cox RN (Registered Nurse) 4 Eyes [...] 2nd RN performing assessment: Yessy Norris NA [facility]10-13-2025 Emergency department Note* Yvette Stoner RN - 06/28/2025 9:31 PM EDT Report called to Sherrill BETANCOURT on 4M at this time. All questions answered. [facility]10-13-2025 Emergency department Note* Yvette Stoner RN - 06/28/2025 9:31 PM EDT Report called to Sherrill BETANCOURT on 4M at this time. All questions answered. * Yvette Stoner RN - 06/28/2025 9:08 PM EDT Femoral nerve block perfromed from 3900-9272 25 mL ropivacaine administered for procedure by Dr. Jaramillo * Yvette Stoner RN - 06/28/2025 8:57 PM EDT Clint at bedside to do L femoral nerve block Informed consent obtained with dr Jaramillo * Yvette Stoner RN - 06/28/2025 8:23 PM EDT ED to Inpatient SBAR Hand-off Situation Joo Allen [id number] 84 y.o. ED ER 22/ER 22 No Known Allergies Isolation Status: No active isolations [place] body weight: 54.6 kg (120 lb 5.9 oz) Adjusted ideal body weight: 61.8 kg (136 lb 3.6 oz) Last Filed Weights 06/28/25 1851 Weight: 160 lb (72.6 kg) Weight Method: Stated Most recent height: 5' 2 (1.575 m) SALES RELATIONSHIP MANAGER Med List Status: In Progress Marked as Reviewed: Yes Code Status:No Order Are any Caregivers Present? yes Patient arrived from: Other Chief Complaint Patient presents with Fall Final diagnoses: Fall from standing, initial encounter Intertrochanteric fracture, closed, left, initial encounter ([facility]) XR-HIP UNI LEFT 2/3 VIEWS [...] Saeed DO, 06/28/2025 8:16 PM Dictation workstation: [id number] XR-ELBOW LEFT 3 OR MORE VIEWS Final Result 1. No acute findings This dictation was created with voice recognition software. While attempts have been made to reviewthe dictation as it is transcribed, on occasion the spoken word can be misinterpreted by the technology leading to omissions or inappropriate words, phrases or sentences. Electronically Signed by: Priyanka Kirkland DO, 06/28/2025 8:12 PM Dictation workstation: [id number] CT-HEAD W/O CONTRAST Final Result 1. Minimal [...] Pelaez MD, 06/28/2025 7:55 PM Dictation workstation: [id number] CT-SPINE CERVICAL WO CONTRAST Final Result 1. [...] Covarrubias MD, 06/28/2025 8:03 PM Dictation workstation: [id number] Abnormal Labs Reviewed CBC W/DIFF - Abnormal; [...] Response: Oriented Best Motor Response: Obeys commands [place] Coma Scale Score: 15 Patient currently on [...] unlabored. Call light within reach. * Ramez Shruti Denney, - 06/28/2025 6:48 PM EDT Images from the original note were not included. LOCATION OF ENCOUNTER [facility] Emergency Department CHIEF COMPLAINT Chief Complaint Patient presents with Fall HPI Joo Allen is a 84 y.o. male with PMHx of hypertension who presents to the emergency department with complaint of a fall. Patient was at [facility], apparently his started falling and when he [...] Social Drivers of Health Received from [facility] Safety & Environment SURGICAL HISTORY History reviewed. [...] Saeed DO, 06/28/2025 8:16 PM Dictation workstation: [id number] XR-ELBOW LEFT 3 OR MORE VIEWS Final Result 1. No acute findings This dictation was created with voice recognition software. While attempts have been made to reviewthe dictation as it is transcribed, on occasion the spoken word can be misinterpreted by the technology leading to omissions or inappropriate words, phrases or sentences. Electronically Signed by: Priyanka Kirkland DO, 06/28/2025 8:12 PM Dictation workstation: [id number] CT-HEAD W/O CONTRAST Final Result 1. Minimal [...] Pelaez MD, 06/28/2025 7:55 PM Dictation workstation: [id number] CT-SPINE CERVICAL WO CONTRAST Final Result 1. [...] Covarrubias MD, 06/28/2025 8:03 PM Dictation workstation: [id number] CBC W/DIFF - Abnormal; Notable for the [...] evaluated: None Discussed case with: Orthopedics-Dr. Mortensen, hospitalist-EXTRACTOR LOADER AND UNLOADER Nael, Dr. Geddam TREATMENT AND DISPOSITION ED Course as of 06/28/252211Jun 28, 20251905 Seen and examined in room 22 84 [...] with anesthesiologist for hipblock. Discussed with KAREN Handley for hospitalist service who kindly accepts for [...] are no discharge medications for this patient. [facility]#415 - Emergency Medicine: Utilization of CT for Minor Blunt Head Trauma (Adult) [X] Patient is 18 or older, presenting with minor blunt head trauma. Head CT (including cosigned orders) was ordered by an emergency managed care provider for trauma because (select one or more): [SATISFIESMIPS PERFORMANCE] [X] Patient is 65 or older SEPSIS Sepsis Documentation: Patient has no SIRS or source of infection at this time, therefore there is no suspicion of sepsis, severe sepsis, or septic shock. If narcotics were prescribed at this ED visit, an OARRS report was completed on [place] Automated Rx Reporting System website via [employer] based [employer] and was reviewed for all controlled substance prescriptions in past one year. FINAL IMPRESSION 1. Intertrochanteric fracture, closed, left, initial encounter (HCC) 2. Fall from standing, initial encounter Electronically signed by: Ramez Denney DO, 06/28/2025 10:09 PM Portions of this note were created utilizing [employer] dictation software. Although all attempts are made to clarify errors made by the software during dictation, errors do still occur. If there is any question about the content of this note and clarification is needed, please contact the author directly. Ramez Denney DO 06/28/252211 * Dianne Cornejo RN - 06/28/2025 6:43 PM EDT Pt arrives to the ER from [facility] via [facility] with a fall. Pt reports, he [...] Expected time: 6:38 PM Means of arrival: [facility] Comments: Ham 28 documented in this encounterPremier Health [facility] Center10-13-2025 Emergency department Note * Yvette Stoner RN - 06/28/2025 9:08 PM EDT Femoral nerve block perfromed from 5985-3731 25 mL ropivacaine administered for procedure by Dr. Jaramillo [facility]10-13-2025 Emergency department Note* Yvette Stoner RN - 06/28/2025 8:57 PM EDT Clint at bedside to do L femoral nerve block Informed consent obtained with dr Jaramillo [facility]10-13-2025 History and physical note* JESSI Santana CNP - 06/28/2025 8:39 PM EDT [facility] Medicine Inpatient Group History and Physical Chief Complaint: Fall HPI:Joo Allen is an 84 y.o. male, past medical history of hypertension, obstructive sleep apneaon CPAP, presents after mechanical fall. Patient stated he was at [facility], spouse and him were leaving spouse tripped [...] at 75 mL/h. -Orthopedic surgery consulted. # [id number]. -IVF-NS at 75 mL per hour. # Hypertension. -Maintain SBP less than 160. # Obstructive sleep apnea. -CPAP at night. # Anticoagulations held for possible surgery in AM. # GI prophylaxis with IV Protonix 40 mg daily. 30 minutes time spent in direct patient interaction/assessment/history and physical examination/documentation. EMELIA Santana 06/28/2025 Cosigned by Baljinder Carrillo MD at 06/29/2025 7:47 AM EDT [facility]10-13-2025 NoteEncounter Department: [facility] ACUTE CARE ORTHOPEDICS 4 MAIN HANDP by EMELIA Santana at 06/28/2025 8:39 PM Author: EMELIA SantanaService: HospitalistAuthor Type: Certified Nurse Practitioner Filed: 06/28/2025 9:59 PMDate of Service: 06/28/2025 8:39 PMStatus: Signed Surgery Specialist: EMELIA Santana (Certified Nurse Practitioner)Cosigner: Baljinder Carrillo MD at 06/29/2025 7:47 AM [facility] Medicine Inpatient Group History and Physical Chief Complaint: Fall HPI:Joo Allen is an 84 y.o. male, past medical history of hypertension, obstructive sleep apnea on CPAP, presents after mechanical fall. Patient stated he was at [facility], spouse and him were leaving spouse tripped [...] - Abnormal; Notable for the following components: Rlqaxi078 (*)136 - 145 mmol/LFinal Potassium5.2 (*)3.5 - 5.1 mmol/LFinal Comment:Hemolyzed. Hemolysis may affect this result. Specimen may be redrawn at the discretion of ordering physician. CO220 (*)21 - 31 mmol/LFinal Kctzvnp779 (*)74 - 109 mg/dLFinal Calcium8.5 (*)8.6 - [...] at 75 mL/h. -Orthopedic surgery consulted. # [id number]-794-GIY. -IVF-NS at 75 mL per hour. # Hypertension. -Maintain SBP less than 160. # Obstructive sleep apnea. -CPAP at night. # Anticoagulations held for possible surgery in AM. # GI prophylaxis with IV Protonix 40 mg daily. 30 minutes time spent in direct patient interaction/assessment/history and physical examination/documentation. Luis Handley APRN-[employer]TER 06/28/2025[facility]10-13-2025 Emergency department Note* Yvette Stoner RN - 06/28/2025 8:23 PM EDT ED to Inpatient SBAR Hand-off Situation Joo Allen [id number] 84 y.o. ED ER 22/ER 22 No Known Allergies Isolation Status: No active isolations [place] body weight: 54.6 kg (120 lb 5.9 oz) Adjusted ideal body weight: 61.8 kg (136 lb 3.6 oz) Last Filed Weights 06/28/25 1851 Weight: 160 lb (72.6 kg) Weight Method: Stated Most recent height: 5' 2 (1.575 m) [facility] Med List Status: In Progress Marked as Reviewed: Yes Code Status:No Order Are any Caregivers Present? yes Patient arrived from: Other Chief Complaint Patient presents with Fall Final diagnoses: Fall from standing, initial encounter Intertrochanteric fracture, closed, left, initial encounter ([facility]) XR-HIP UNI LEFT 2/3 VIEWS [...] Saeed DO, 06/28/2025 8:16 PM Dictation workstation: [id number] XR-ELBOW LEFT 3 OR MORE VIEWS Final Result 1. No acute findings This dictation was created with voice recognition software. While attempts have been made to reviewthe dictation as it is transcribed, on occasion the spoken word can be misinterpreted by the technology leading to omissions or inappropriate words, phrases or sentences. Electronically Signed by: Priyanka Kirkland DO, 06/28/2025 8:12 PM Dictation workstation: [id number] CT-HEAD W/O CONTRAST Final Result 1. Minimal [...] Pelaez MD, 06/28/2025 7:55 PM Dictation workstation: [id number] CT-SPINE CERVICAL WO CONTRAST Final Result 1. [...] Covarrubias MD, 06/28/2025 8:03 PM Dictation workstation: [id number] Abnormal Labs Reviewed CBC W/DIFF - Abnormal; [...] Response: Oriented Best Motor Response: Obeys commands [place] Coma Scale Score: 15 Patient currently on [...] problem list on file for this patient. [facility]10-13-2025 Emergency department Note* Yvette Stoner RN - 06/28/2025 7:53 PM EDT Pt returned from CT at this time. Rounding completed. Endorses pain 1/10 at this time, denies need for pain intervention at this time. [facility]10-13-2025 Emergency department Note* Yvette Stoner RN - 06/28/2025 7:20 PM EDT Pt to CT via transport [facility]10-13-2025 Emergency department Note* Yvette Stoner RN - 06/28/2025 7:08 PM EDT Assumed care of pt at this time from SERAFIN Dean via bedside handoff. Pt resting in bed, respirations even and unlabored. Call light within reach. [facility]10-13-2025 Physician Emergency department Note* Ramez Denney, - 06/28/2025 6:48 PM EDT Images from the original note were not included. LOCATION OF ENCOUNTER [facility] Emergency Department CHIEF COMPLAINT Chief Complaint Patient presents with Fall HPI Joo Allen is a 84 y.o. male with PMHx of hypertension who presents to the emergency department with complaint of a fall. Patient was at [facility], apparently his started falling and when he [...] activity: Yes Partners: Female Social Drivers of [place] Received from [facility] Safety & Environment SURGICAL HISTORY History reviewed. [...] Saeed DO, 06/28/2025 8:16 PM Dictation workstation: [id number] XR-ELBOW LEFT 3 OR MORE VIEWS Final Result 1. No acute findings This dictation was created with voice recognition software. While attempts have been made to reviewthe dictation as it is transcribed, on occasion the spoken word can be misinterpreted by the technology leading to omissions or inappropriate words, phrases or sentences. Electronically Signed by: Priyanka Kirkland DO, 06/28/2025 8:12 PM Dictation workstation: [id number] CT-HEAD W/O CONTRAST Final Result 1. Minimal [...] Pelaez MD, 06/28/2025 7:55 PM Dictation workstation: [id number] CT-SPINE CERVICAL WO CONTRAST Final Result 1. [...] Covarrubias MD, 06/28/2025 8:03 PM Dictation workstation: [id number] CBC W/DIFF - Abnormal; Notable for the [...] evaluated: None Discussed case with: Orthopedics-Dr. Mortensen, hospitalist-KAREN Handley, Dr. Jaramillo TREATMENT AND DISPOSITION ED Course as of 06/28/252211Jun 28, 2025 190 Seen and examined in room 22 84 [...] with anesthesiologist for hipblock. Discussed with KAREN Handley for hospitalist service who kindly accepts for [...] are no discharge medications for this patient. [facility]#415 - Emergency Medicine: Utilization of CT for Minor Blunt Head Trauma (Adult) [X] Patient is 18 or older, presenting with minor blunt head trauma. Head CT (including cosigned orders) was ordered by an emergency managed care provider for trauma because (select one or more): [SATISFIESMIPS PERFORMANCE] [X] Patient is 65 or older SEPSIS Sepsis Documentation: Patient has no SIRS or source of infection at this time, therefore there is no suspicion of sepsis, severe sepsis, or septic shock. If narcotics were prescribed at this ED visit, an OARRS report was completed on [place] Automated Rx Reporting System website via [employer] based [employer] and was reviewed for all controlled substance prescriptions in past one year. FINAL IMPRESSION 1. Intertrochanteric fracture, closed, left, initial encounter (HCC) 2. Fall from standing, initial encounter Electronically signed by: Ramez Denney DO, 06/28/2025 10:09 PM Portions of this note were created utilizing [employer] dictation software. Although all attempts are made to clarify errors made by the software during dictation, errors do still occur. If there is any question about the content of this note and clarification is needed, please contact the author directly. Ramez Denney DO 06/28/252211 [facility]10-13-2025 Emergency department Triage note* Dianne Cornejo RN - 06/28/2025 6:43 PM EDT Pt arrives to the ER from [facility] via [facility] with a fall. Pt reports, he was trying to catch his from falling and when he went to catch her, he fell back. Pt is c/o left hip pain. Pt deniesany LOC or hitting his head. Pt was given fentanyl in route to the ER. Pt is A&OX4, skin warm and dry at this time. [facility]10-13-2025 Emergency department Note* Gabriela Sahni RN - 06/28/2025 6:42 PM EDT Bed: ER 22 Expected date: 06/28/25 Expected time: 6:38 PM Means of arrival: [facility] Comments: Ham 28 [facility]09-24-2025 NotePlease let him know his ECHO showed normal pumping function. His aortic, mitral and tricuspid valves were mildly leaky . Just monitor at this time with a follow-up ECHO in 1-2 years or sooner if needed. Follow-up as planned. Thanks! [facility]09-10-2025 NoteCardiovascular Medicine [facility] SUBJECTIVE Chief Complaint Patient presents with Follow-up [...] Rate 07/05/2021 76 Atrial Rate 07/05/2021 76 NE Interval 07/05/2021 228 QRS DURATION 07/05/2021 84 QT Interval 07/05/2021 398 QTC CALCULATION(BAZETT) 07/05/2021 447 P [place] 07/05/2021 18 R-[place] 07/05/2021 -5 T Wave [place] 07/05/2021 -14 Diagnosis 07/05/2021 Value:Sinus rhythm with [...] Last lab values have been reviewed Testing/Procedures: [facility] (2010): FINAL IMPRESSION: 1. Moderate, non-hemodynamically significant [...] of the left circumflex coronary artery. 2. 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 1. Essential hypertension ([facility]) Chronic problem, stable, to goal - lisinopril 40 MG tablet; Take 1 tablet (40 mg) by mouth Daily Dispense: 90 tablet; Refill: 1 - amLODIPine (Norvasc) 5 MG tablet; Take 1 tablet (5 mg) by mouth Daily Dispense: 90 tablet; Refill: 1 2. Mixed hyperlipidemia ([facility]) Reviewed labs with patient in essentially to goal. - atorvastatin (Lipitor) 40 MG tablet; Take 1 tablet (40 mg) by mouth Daily Dispense: 90 tablet; Refill: 1 3. Hypertensive nephropathy ([facility]) Chronic problem, stable, demonstrating end organ damage from their current state of health. I stressed the importance of keeping blood pressure and blood sugar to goal, staying well hydrated,avoiding NSAIDs, and aerobic exercises as tolerated. Continue to monitor longitudinally. 4. Stage 3a chronic kidney disease (HCC) ([facility]) Chronic problem that has surprisingly [...] of evaluation and management. documented in this encounterResearch Medical Center-Brookside [id number] History of Present illness Narrative* Sai Anderson [...] that were performed or orderedby another health career development facilitator. These are documented in the electronic health [...] angina or anginal equivalents. documented in this encounterNOIA HealthcareEvaluation note* Diagnosis Essential hypertension (CMS/HCC)- Primary [...] Coronary atherosclerosis of unspecified type of vessel, [place] or graft documented in this encounter [facility] HealthcareEvaluation note* Diagnosis Essential hypertension (CMS/HCC) Unspecified essential hypertension Mixed hyperlipidemia (CMS/HCC) Mixed hyperlipidemia Gastroesophageal reflux disease without esophagitis Esophageal reflux documented in this encounter [facility]* Diagnosis Mixed hyperlipidemia (CMS/HCC) Mixed hyperlipidemia Essential hypertension (CMS/HCC) Unspecified essential hypertension documented in this encounter [facility] HealthcareEvaluation note* Diagnosis Essential hypertension (CMS/HCC) Unspecified essential hypertension Mixed hyperlipidemia (CMS/HCC) Mixed hyperlipidemia Hypertensive nephropathy (CMS/HCC) Unspecified hypertensive kidney disease with chronic kidney disease stage I through stage IV, or unspecified Stage 2 chronic kidney disease Microalbuminuria Proteinuria Gastroesophageal reflux disease without esophagitis Esophageal reflux documented in this encounter [facility] HealthcareEvaluation note* Diagnosis Encounter for Medicare annual wellness exam- Primary Advance directive in chart Encounter for screening for other disorder Screening for alcohol problem Screening for alcoholism Over weight Overweight Sick sinus syndrome (HCC) Sinoatrial node dysfunction Pulmonary hypertension (HCC) Other chronic pulmonary heart diseases Arthritis of carpometacarpal (CMC) joint of right thumb documented in this encounter [facility] HealthcareEvaluation note* Diagnosis Closed left hip fracture, initial encounter ([facility])- Primary Fall from standing, initial encounter Intertrochanteric fracture, closed, left, initial encounter ([facility]) Hyponatremia Hyposmolality and/or hyponatremia Closed left hip fracture, initial encounter ([facility]) [facility] Diagnosis Fall from standing, sequela- Primary Closed displaced intertrochanteric fracture of left femur, sequela Post-operative state Other postprocedural status Hematoma of leg, left, sequela Bruise Contusion of unspecified site Encounter for examination following treatment at hospital Over weight Overweight documented in this encounter [facility] HealthcareEvaluation note* Diagnosis Closed subtrochanteric fracture of hip, left, initial encounter ([facility])- Primary Left hip pain Pain in joint, pelvic region and thigh Essential hypertension Unspecified essential hypertension Hypertensive nephropathy Unspecified hypertensive kidney disease with chronic kidney disease stage I through stage IV, or unspecified Stage 2 chronic kidney disease Microalbuminuria Proteinuria Mixed hyperlipidemia Gastroesophageal reflux disease without esophagitis Esophageal reflux documented in this encounter [facility] Healthcare Summary Purpose Family History No Family History Records FoundNo Family History Records FoundNo Family History Records FoundNo Family History Records FoundNo Family History Records Found Advance Directives TypeDate RecordedPatient RepresentativeExplanationAdvance Directives and Living [id number] poaAdvance Directives and Living Will Power of AttorneyDate ActivatedDate NlcphkquwrbEdiikrxz85/13/2025 8:39 PMUnless other masterson ordered, all patients will be in this group in the event of a cardiopulmonary arrest. This order includes all of the following: CPR Mechanical Ventilation ICU care if necessary ACLS protocols [employer] All means of support judged appropriate by the physicianDate ActivatedDate [id number]/13/2025 8:39 / 6:37 PMUnless other masterson ordered, all patients will be in this group in the event of a cardiopulmonary arrest. This order includes all of the following: CPR Mechanical Ventilation ICU care if necessary ACLS protocols [employer] All means of support judged appropriate by the physicianTypeDate RecordedPatient RepresentativeExplanationAdvance Directives and Living [id number] poaAdvance Directives and Living Will Power of Executive Services Administrator Additional Source Comments (unrecognized sect ion and content) No Status Records FoundNo Status Records FoundNo Status Records FoundNo Status Records FoundNo Status Records Found INFORMATION SOURCE (unrecogn ized section and content) DATE CREATED AUTHOR 07/11/2021 [facility] DATE CREATED AUTHOR AUTHOR'S ORGANIZ ATION 08/16/2022 [facility] DATE CREATED AUTHOR AUTHOR'S ORGANIZ ATION 06/11/2025 [facility] DATE CREATED AUTHOR AUTHOR'S ORGANIZ ATION 07/13/2025 [facility] DATE CREATED AUTHOR AUTHOR'S ORGANIZ ATION 07/28/2025 [facility] EPIC Care Teams (unrecognized sec tion and content) Team MemberRelationshipSpecialtyStart DateEnd Date Sai Anderson MD [address] [address] PCP - [facility]09/16/20 Sai Anderson MD [address] [address] [facility] - [facility]01/23/23Team MemberRelationshipSpecialtyStart DateEnd Date Sai Anderson MD [address] [place] [address] (Fax) PCP - [facility]09/16/20 Sai Anderson MD [address] [place] [address] (Fax) PCP - GeneralFamily Medicine01/23/23Team MemberRelationshipSpecialtyStart DateEnd Date Sai Anderson MD [address] [facility] [place] [address] (Fax) PCP - [facility]09/16/20 Sai Anderson MD [address] [facility] [place] [address] (Fax) PCP - GeneralFamily Medicine01/23/23Team MemberRelationshipSpecialtyStart DateEnd Date Sai Anderson MD [address] [place] [address] (Fax) PCP - [facility]09/16/20 Sai Anderson MD [address] [place] [address] (Fax) PCP - GeneralFamily Medicine01/23/23Team MemberRelationshipSpecialtyStart DateEnd Date Sai Anderson MD [address] [place] [address] (Fax) PCP - [facility]09/16/20 Sai Anderson MD [address] [place] [address] (Fax) PCP - GeneralFamily Medicine01/23/23Team MemberRelationshipSpecialtyStart DateEnd Date Sai Anderson MD [address] [place] [address] (Fax) PCP - [facility]09/16/20 Sai Anderson MD [address] [place] [address] (Fax) PCP - Generalmily Medicine01/23/23Team MemberRelationshipSpecialtyStart DateEnd Date Sai Anderson MD [address] [place] [address] (Fax) PCP - [facility]09/16/20 Sai Anderson MD [address] [place] [address] (Fax) [facility]23Team MemberRelationshipSpecialtyStart DateEnd Date Sai Anderson MD [address] [place] [address] (Fax) PCP - [facility]09/16/20 Sai Anderson MD [address] [place] [address] (Fax) PCP - Generalmily Medicine01/23/23Team MemberRelationshipSpecialtyStart DateEnd Date Sai Anderson MD [address] [place] [address] (Fax) PCP - [facility]09/16/20 Sai Anderson MD [address] [place] [address] (Fax) PCP - GeneralFamily Medicine01/23/23 Jr. Lynsey Borrero DO [address] [facility] [address] [place] [address] Referring PhysicianOrthopaedic Surgery03/23/25 Jesse Cabrera MD [address] [place] [address] Referring PhysicianCardiology03/23/25 Antonina Albrecht MD [address] [facility] [place] [address] Referring PhysicianDermatology03/23/25Team MemberRelationshipSpecialtyStart Date End Date Sai Anderson MD [address] [facility] [address] [place] [address] PCP - [facility]09/16/20 Sai Anderson MD [address] [facility] [address] [place] [address] PCP - Generalmily Medicine01/23/23 Jr. Lynsey Borrero DO [address] [facility] [address] [place] [address] Referring PhysicianOrthopaedic Surgery03/23/25 Jesse Cabrera MD [address] [facility] [place] [address] Referring PhysicianCardiology03/23/25 Antonina Albrecht MD [address] [facility] [place] [address] Referring PhysicianDermatology03/23/25Team MemberRelationshipSpecialtyStart Date End Date Sai Anderson MD [address] [place] [address] (Fax) PCP - Fqzveqb47/13/25Team MemberRelationshipSpecialtyStart DateEnd Date Sai Anderson MD [address] [place] [address] (Fax) PCP - Yvbfavp19/13/25Team MemberRelationshipSpecialtyStart DateEnd Date Sai Anderson MD [address] [place] [address] (Fax) PCP - [facility]09/16/20 Sai Anderson MD [address] [address] (Fax) PCP - GeneralFamily Medicine01/23/23 Jr. Lynsey Borrero DO [address] [id number] Referring PhysicianOrthopaedic Surgery03/23/25 Jesse Cabrera MD [address] [place] [phone] Referring PhysicianCardiology03/23/25 Antonina Albrecht MD [address] [place] [address] Referring PhysicianDermatology03/23/25Team MemberRelationshipSpecialtyStart Date End Date Sai Anderson MD [address] [place] [address] (Fax) PCP - [facility]09/16/20 Sai Anderson MD [address] [address] PCP - GeneralFamily Medicine01/23/23 Jr. Lynsey Borrero DO [address] [address] Referring PhysicianOrthopaedic Surgery03/23/25 Jesse Cabrera MD [address] [place] [address] Referring PhysicianCardiology03/23/25 Antonina Albrecht MD [address] [facility] [place] [address] Referring PhysicianDermatology03/23/25Team MemberRelationshipSpecialtyStart Date End Date Sai Anderson MD [address] [address] (Fax) PCP - [facility]09/16/20 Sai Anderson MD [address] [address] PCP - Generalmily Medicine01/23/23 Jr. Lynsey Borrero DO [address] [address] Referring PhysicianOrthopaedic Surgery03/23/25 Jesse Cabrera MD [address] [place] [address] Referring PhysicianCardiology03/23/25 Antonina Albrecht MD [address] [facility] [place] [address] Referring PhysicianDermatology03/23/25Team MemberRelationshipSpecialtyStart Date End Date Sai Anderson MD [address] [address] PCP - [facility]09/16/20 Sai Anderson MD [address] [address] PCP - GeneralFamily Medicine01/23/23 Jr. Lynsey Borrero DO [address] [address] Referring PhysicianOrthopaedic Surgery03/23/25 Jesse Cabrera MD [address] [place] [address] Referring PhysicianCardiology03/23/25 Antonina Albrecht MD [address] [place] [address] Referring PhysicianDermatology03/23/25 Reason for Visit (unrecogniz ed section and content) ReasonCommentsHypertensionGERDHyperlipidemiaReasonCommentsMed RefillReason CommentsHypertensionHyperlipidemiaGERDReasonCommentsAnnual ExamReasonComments FallSpecialtyDiagnoses / ProceduresReferred By ContactReferred To Contact Diagnoses Closed left hip fracture, initial encounter ([facility]) Referral IDStatusReasonStart DateExpiration DateVisits RequestedVisits [id number] DateCommentsDischarge Follow-up Phone Call 07/05/20259770DzgtmfSmyxbqsyMhwjto-tiYjfolcValzlbhaQwncme-hzTwlzfebecRdebnnyqk / ProceduresReferred By ContactReferred To ContactOrthopaedic Surgery Diagnoses Encounter for examination following treatment at hospital Post-operative state Closed displaced intertrochanteric fracture of left femur, sequela Closed fracture of left hip, sequela Fall from standing, sequela Monica, Sai Ann MD [address] [place] [address] Phone: tel: fax: Jr. Lynsey Borrero, [address] [place] [address] Phone: tel: fax: Referral IDStatusReasonStart DateExpiration DateVisits RequestedVisits [id number] Specialty Services Required / Scheduled Active and Recently Administ ered Medications (unrecognized section and content) Medication Order// amLODIPine (NORVASC) tablet 2.5 mg 2.5 mg, [...] (Given - Provider: Dimitri Vasquez, SERAFIN) * 1152 (Given - Provider: Nneka Wilson RN) * 0913 (Given - Provider: Nneka Wilson, SERAFIN) atorvastatin (LIPITOR) tablet 40 mg 40 mg, Oral, DAILY, First dose on Sat06/29/25 at 0900, Until Discontinued * 0957 (Given - Provider: Dimitri Vasquez RN) * 1152 (Given - Provider: Nneka Wilson RN) * 0913 (Given - Provider: Nneka Wilson, SERAFIN) ceFAZolin in dextrose (iso-os) (ANCEF) 2000 mg/ 100 mL IVPB (COMPLETED) 2,000 mg, Intravenous, Administer over 30 Minutes, EVERY 8 HOURS (3 times per day), First dose on Sat06/29/25 at 2100, Post-op * 0602 (New Bag - Provider: Bridget Rowley RN) * 0611 (Rate/Dose Verify - Provider: Bridget Rowley, RN) * 0645 (Stopped/Completed - Provider: Bridget Rowley, RN) * 1329 (New Bag - Provider: Dimitri Vasquez, SERAFIN) * 1441 (Stopped/Completed - Provider: Dimitri Vasquez [...] 0913 (Given - Provider: Nneka Wilson RN) lisinopriL (ZESTRIL) tablet 40 mg (CANCELED) 40 mg, Oral, DAILY, First dose on Sat06/29/25 at 0900, Until Discontinued * 0955 (Given - Provider: Dimitri Vasquez, SERAFIN) * 1132 (Hold - Provider: Nneka Wilson RN - Reason: Abnormal Vital Signs) magnesium oxide (MAG-OX) tablet 200 mg 200 mg, Oral, DAILY, First dose on Sat06/29/25 at 0900, Until Discontinued * 0956 (Given - Provider: Dimitri Vasquez, SERAFIN) * 1152 (Given - Provider: Nneka Wilson RN) * 0913 (Given - Provider: Nneka Wilson, [...] Discontinued * 1728 (Given - Provider: Nneka Wilson RN) * 0912 (Given - Provider: Nneka Wilson RN) * 2100 (Due) Medication Order/ 0.9 % sodium chloride infusion (CANCELED) 75 mL/hr, Intravenous, CONTINUOUS, Starting on Sat06/28/25 at 2115 * 0209 (Rate/Dose Verify - Provider: Bridget Rowley RN) * 0305 (New Bag - Provider: Bridget Rowley RN) * 0540 (Rate/Dose Verify - Provider: Bridget Rowley RN) * 1326 (Stopped/Completed - Provider: Dimitri Vasquez [...] 4 HOURS PRN, Starting on Sat06/28/25 at 2034, Until Discontinued, Mild pain (score 1-3) * 1326 (Given - Provider: Dimitri Vasquez, SREAFIN) * 1728 (Given - Provider: Dimitri Vasquez, SERAFIN) docusate (COLACE) capsule 100 mg 100 mg, Oral, TWO TIMES DAILY PRN, Starting on Sat06/28/25 at 2033, Until Discontinued, Constipation * 0957 (Given - Provider: Dimitri Vasquez RN) * 1647 (Given - Provider: Nneka Wilson, [...] RN) * 0004 (Given - Provider: Devaughn Torres RN) * 1827 (Given - Provider: Nneka Wilson, SERAFIN) * 0337 (Given - Provider: Devaughn Torres RN) * 1430 (Given - Provider: Nneka Wilson, SERAFIN) oxyCODONE-acetaminophen (PERCOCET) 5-325 mg per tablet 2 tablet 2 tablet, Oral, EVERY 4 HOURS PRN, Starting on Sat06/29/25 at 2343, Until Sat07/09/25 at 2342, Severe pain (score 7-10) Medication Order// ROPivacaine (PF) (NAROPIN) 5 mg/mL (0.5 %) [...] BE BASED ON THE PRIMARY CLINICAL RECORDS. [facility] [employer] [facility]. provides no warranty or guarantee of the accuracy or completeness of information in this document.
--- OUTSIDE RECORDS SUMMARY | 2025-08-24 22:21 | XMS_ITS | Clinical Summary ---
Author Organization [facility] Address [address] [place] [address] Care Team Providers Care Business Manager Name Role Phone Sai Anderson MD Unavailable [phone] Sai Anderson MD Primary Care Provider [phone] Jr. Marcial Borrero DO Unavailable [phone] Jesse Cabrera MD Unavailable [phone] Antonina Albrecht MD Unavailable Andreea Sousa Unavailable [phone] Allergies No known active allergies Medications MedicationSigDispense QuantityRefillsLast FilledStart DateEnd DateStatus magnesium oxide (Mag-Ox) 400 MG tablet Take 400 mg by mouth in the morning.Active atorvastatin (Lipitor) 40 MG tablet Indications:Mixed hyperlipidemiaTake 1 tablet (40 mg) by mouth Daily 90 tablet 5Active methocarbamol (Robaxin) 500 MG tablet Take 500 mg by mouth every 8 (eight) hours if needed for muscle nypqqh02 Active Docusate Sodium (COLACE PO) Take 1 tablet by mouth Daily as needed (constipation)Active Potassium 99 MG tablet Take 1 tablet by mouth DailyActive lisinopril 20 MG tablet Indications:Essential hypertensionTake 1 tablet (20 mg) by mouth Daily Hold if SBP <110 90 tablet ctive omeprazole (PriLOSEC) [address] capsule Indications:Gastroesophageal reflux disease without esophagitisTake 1 capsule (20 mg) by mouth in the morning. Take before meals. Do not crush or chew. 90 capsule 6Active amLODIPine (Norvasc) 2.5 MG tablet Indications:Essential hypertensionTake 1 tablet (2.5 mg) by mouth Daily 90 tablet ctive oxyCODONE-acetaminophen (Percocet) 5-325 MG tablet Indications:Postoperative pain,Closed fracture of left hip with routine healing Take 1 tablet by mouth every 4 (four) hours if needed for moderate pain 20 tablet 08/03/2025tive pregabalin (Lyrica) 75 MG capsule Indications:Chronic pain syndromeTake 1 capsule (75 mg) by mouth 3 (three) times a day 90 capsule tive oxyCODONE-acetaminophen (Percocet) 5-325 MG tablet Indications:Left hip painTake 1 tablet by mouth every 6 (six) hours if needed for severe pain 28 tablet tive omeprazole (PriLOSEC) [address] capsule Indications:Gastroesophageal reflux disease without esophagitisTake 1 capsule (20 mg) by mouth in the morning. Take before meals. Do not crush or chew. 90 capsule Discontinued(Reorder) nabumetone (Relafen) 750 MG tablet Indications:Arthritis of carpometacarpal (CMC) joint of right thumbTAKE 2 TABLETS BY MOUTH EVERY DAY 180 tablet Discontinued(Med list cleanup) ferrous sulfate 325 (65 Fe) MG tablet Take 325 mg by mouth in the morning.Expired amLODIPine (Norvasc) 5 MG tablet Take 0.5 tablets by mouth Daily Take 0.5 tab. Hold if SBP <110.07/27/2025 Discontinued(Reorder) lisinopril 20 MG tablet Take 20 mg by mouth Daily Hold if SBP <3350607/27/2025Discontinued(Reorder) aspirin 325 MG tablet Take 325 mg by mouth in the morning and 325 mg before bedtime.07/02/2025 08/01/2025Expired oxyCODONE-acetaminophen (Percocet) 5-325 MG tablet Indications:Closed fracture of left hip with routine healing,Postoperative pain Take 1 tablet by mouth every 4 (four) hours if needed for moderate pain 20 tablet Discontinued(Reorder) pregabalin (Lyrica) 50 MG capsule Indications:Chronic pain syndromeTake 1 capsule (50 mg) by mouth in the morning and 1 capsule (50 mg) in the evening and 1 capsule (50 mg) before bedtime. 90 capsule Discontinued(Reorder) amLODIPine (Norvasc) 2.5 MG tablet Indications:Essential hypertensionTake 1 tablet (2.5 mg) by mouth Daily Take 0.5 tab. Hold if SBP <110. 90 tablet Discontinued Active Problems ProblemNoted DateDiagnosed DateChronic pain oufmbbbh70/11/2025Degenerative disc disease (DDD) of lumbar region with discogenic back pain and leg pain07/27/2025 Closed fracture of left hip with routine hhbwswy1206/28/2025Mixed hyperlipidemia 04/24/2023 Overview (07/11/2023): Last Assessment & Plan: Continue lipitor Arthritis of carpometacarpal (CMC) joint of right thumb02/26/2023ependence on other enabling machines and gmjqzaw6302/26/2023Essential gxfzxstzycxy32/13/2023 Essential eojqvw3502/26/2023First degree AV block02/26/2023astroesophageal reflux disease without /13/2023Hypertensive bljdyytzchb74/13/2023 Uqfvqaqjyfkciroo56/13/2023Nodular prostate without lower urinary tract symptoms 02/26/2023Nonrheumatic aortic valve btedipxcyxxem15/13/2023Nonrheumatic mitral valve cxfkrsrrxxvin46/13/2023Obstructive sleep apnea (adult) (pediatric) 02/26/2023Other taaqvskv29/13/2023Over aimeuy4002/26/2023olyp of colon02/26/2023 Pulmonary ptlidjtkjfhw55/13/2023Sick sinus xejkndbo60/13/2023Stage 2 chronic kidney xmxcxpy4302/26/2023oronary htwutgjxatlztdtq64/06/2021VC (premature ventricular contraction)08/21/2021enal artery owzlicwi19/11/2021 Resolved Problems ProblemNoted DateDiagnosed DateResolved DateElevated fasting blood sugar /Nocturnal leg tehdpg43/11/2023Sinus bradycardia /7691Rrpnshtntfh68/11/202106/11/2023 Encounters DateTypeDepartmentCare YknqCykcdzycxzh55/03/2025 1:15 PM ESTAncillary Procedure [facility] [address] [place] [address] 08/18/2025 1:00 PM ESTOffice Visit [facility] [address] [place] [address] Jr. Marcial Borrero, DO Left hip pain08/18/2025amboo flowsheet [facility] [address] [place] [address] Jr. Marcial Borrero, DO 08/18/20251703Qlzpqk72/01/2025bstract [facility] [place] [facility] 112 [facility] 100 [place] [address] Sai Anderson MD 08/09/2025bstract [facility] [place] [facility] 112 [facility] 100 [place] [address] Sai Anderson MD 07/30/2025Patient Outreach [facility] [address] [place] [address] Andreea Sousa, COMPARISON SHOPPER 07/28/2025bstract [facility] [place] [facility] 112 [facility] 100 [place] [address] Sai Anderson MD 07/28/2025Telephone [facility] [place] [facility] 112 [facility] 100 [place] [address] Sai Anderson MD Med Kyxvza5107/27/2025 10:00 AM ESTOffice Visit [facility] [place] 100 [facility] 112 [facility] 100 [place] [address] Sai Anderson MD Essential hypertension (Primary Dx); Hypertensive nephropathy; Stage 2 chronic kidney disease; Microalbuminuria; Mixed hyperlipidemia; Gastroesophageal reflux disease without esophagitis; Chronic pain syndrome; Degenerative disc disease (DDD) of lumbar region with discogenic back pain and leg pain07/27/2025Telephone [facility] [place] [address] [place] [address] Sai Anderson MD Med Change Zxfnngz3707/27/2025Refill [facility] [place] [address] [place] [address] Sai Anderson MD Essential czinduborbmk23/11/2025amboo [facility]sheet [facility] [address] [place] [address] Sai Anderson MD 07/27/20254207Lfocnc23/05/2025 1:15 PM ESTAncillary Procedure [facility] [address] [facility] [address] [place] [address] 07/21/2025 1:15 PM ESTOffice Visit [facility] [address] [facility] [address] [place] [address] Jr. Marcial Borrero, DO Closed subtrochanteric fracture of hip, left, initial encounter ([facility]) (Primary Dx); Left hip pain; Closed fracture of left hip with routine healing; Postoperative pain07/21/2025Telephone [facility] [address] [place] [address] Jr. Marcial Borrero, DO pain bxyjdsvemm36/05/4123Ivxlxt89/05/2025bstract [facility] [place] [address] [place] [address] Sai Anderson MD 07/21/2025bstract [facility] [place] [facility] Family Medicine [address] [facility] 100 [place] [address] Sai Anderson MD 07/20/2025Patient Outreach [facility] [address] [place] [address] Andreea Sousa, COMPARISON SHOPPER 07/14/2025Telephone [facility] [place] [facility] Family [facility] 112 [facility] 100 [place] [address] Heather December, Care Fraljszmiikp11/29/2025Telephone [facility] [place] [facility] [address] [facility] 100 [place] [address] Sai Anderson MD Care Lggdahbamcnh38/28/2025Telephone [facility] [place] [facility] Family [facility] [address] [facility] 100 [place] [address] Heather December, Care Pjcboixesiow37/28/2025Patient Outreach [facility] [address] [place] [address] Andreea Sousa, [facility] 07/12/2025Orders Only [facility] [place] [facility] [address] [facility] 100 [place] [address] HeatherDecember,07/12/2025Patient Outreach [facility] [address] [place] [address] Andreea Sousa, COMPARISON SHOPPER 07/12/2025Telephone [facility] [place] [facility] 112 [facility] 100 [place] [address] Heather, December, Care Sxbspvzohpae18/27/2025Telephone [facility] [place] [facility] Family [facility] 112 [facility] 100 [place] [address] HeatherDecember, Care Wfoywdnswvvs85/24/2025Telephone [facility] [address] [place] [address] Andreea Sousa, COMPARISON SHOPPER 07/08/2025Telephone [facility] [place] 100 Family [facility] 112 [facility] [address] [place] [address] Sai Anderson MD Care Txomztgrnoxl31/23/2025Patient Outreach [facility] [address] [place] [address] Andreea Sousa, [facility] 07/08/2025Telephone [facility] [place] [address] [place] [address] [place] [address] Heather December,07/07/2025 4:00 PM EDTOffice Visit [facility] [place] [address] [place] [address] Sai Anderson MD Fall from standing, sequela (Primary Dx); Closed displaced intertrochanteric fracture of left femur, sequela; Post-operative state; Hematoma of leg, left, sequela; Bruise; Encounter for examination following treatment at hospital; Over sueeni6607/07/2025amboo flowsheet [facility] [place] 100 [facility] [address] [address] [place] [address] Sai Andesron MD 07/07/20253012Bskegx53/21/2025Patient Outreach [facility] [address] [place] [address] Andreea Sousa, [facility] 07/06/2025Patient Outreach [facility] [address] [place] [address] Emma Woodard LPN 07/05/2025Telephone [facility] [place] [facility] Family [address] [place] [address] [place] [address] Heather December, Care Ypgpkkokmpoj66/20/2025Patient Outreach [facility] [address] [place] [address] Emma Woodard LPN 07/05/2025Telephone [facility] [place] [facility] Family [place] [address] [place] [address] HeatherDecember, Flhopefg35/15/2025Telephone [facility] [place] [address] [place] [address] HeatherDecember, Care Smmjuicpfsor62/14/2025Telephone [facility] [place] [address] [place] [address] HeatherDecember, Care Tfgqtqyzpbcj64/17/2025linisync Result Encounter [facility] External Department Unsolicited Provider, Generic External Data from Last 3 Months Immunizations ImmunizationAdministration DatesNext BtpEEjO65/29/2017Influenza, Seasonal, Quadrivalent, Tgeflqcvvl31/19/2021Influenza, injectable, quadrivalent, preservative free07/11/2022Moderna SARS-CoV-2 Skapbuqqdft04/30/2022 Family History Medical HistoryRelationNameCommentsNo Known ProblemsBrotherNo Known Problems DaughterCancerMotherHeart diseaseMotherRelationNameStatusCommentsBrother2 brothersDaughter4 daughtersFatherDeceasedMotherDeceased Social History Tobacco UseTypesPacks/DayYears UsedDateSmoking Tobacco: NeverSmokeless Tobacco: Never Tobacco Cessation:Counseling Given: Yes Alcohol UseStandard Drinks/LyqfXpsspaqjQew32 (1 standard drink = 0.6 oz pure alcohol)PHQ-2AnswerDate RecordedPatient Health Questionnaire-2 Gvrzl30309/26/2024 Sex and Gender InformationValueDate RecordedSex Assigned at BirthNot on file Legal EiySnnp9111/28/2022 8:13 PM EDTGender IdentityNot on fileSexual Orientation Not on file Last Filed Vital Signs Vital SignReadingTime TakenCommentsBlood Xunaihtb934/7607 10:24 AM EDT Yqwel812503/23/2025 10:24 AM EDTTemperature--Respiratory Rate--Oxygen Saturation 98%03/23/2025 10:24 AM EDTInhaled Oxygen Concentration--Rvpltq43.9 kg (163 lb) 03/23/2025 10:24 AM QWUVgvblz758.6 cm (5' 6 )03/23/2025 10:24 AM EDTBody Mass Index26.31003/23/2025 10:24 AM EDT Plan of Treatment DateTypeDepartmentCare Team (Latest Contact Info)Skchksyiqze18/10/2025 2:00 PM ESTOffice Visit [facility] [place] 100 [facility] 112 [facility] 100 [place] [address] Sai Anderson MD 112 [facility] [address] [place] [address] (Fax) 09/22/2025 2:45 PM ESTOffice Visit [facility] [address] [place] [address] Jr. Marcial Borrero DO 112 [facility] [address] [place] [address] 01/19/2026 10:00 AM EDTOffice Visit [facility] [place] 100 [facility] 112 [facility] 100 [place] [address] Sai Anderson MD 112 [facility] 100 [place] [address] (Fax) Health MaintenanceDue DateLast DoneCommentsCOVID-19 Vaccine ( season) 5110/15/2021, 07/12/2021, 11/03/2020, Additional history existsMedicare Annual Wellness (AWV)6003/23/2025, 02/17/2024, 11/29/2022, Additional history existsInfluenza VscrfepCirxggdadnai34/26/2022, 08/04/2021neumococcal Vaccine: 65+ YearsDiscontinued Procedures Procedure NamePriorityDate/TimeAssociated DiagnosisCommentsXR HIP 2 OR 3 VW LEFT Tfunlrl7608/18/2025 1:13 PM EST Left hip pain XR HIP 2 OR 3 VW CQKLBguxuxo28/05/2025 1:14 PM EST Left hip pain CA ECHO DOPPLER JBVXYLRZ63/17/2025 12:38 PM EDT from Last 3 Months Results * XR hip left 2 or 3 views (08/18/2025 1:13 PM EST) Only the most recent of2 resultswithin the time period is included. Anatomical RegionLateralityModalityLower Extremities, HipLeftRadiographic ImagingSpecimen (Source)Anatomical Location / LateralityCollection Method / VolumeCollection TimeReceived Time Narrative 08/18/2025 1:46 PM EST Imaging [...] hip Authorizing ProviderResult TypeResult StatusJr. Marcial Borrero [facility]MG XR PROCEDURESFinal Result * CA ECHO DOPPLER COMPLETE (06/02/2025 12:38 PM EDT)Anatomical RegionLaterality ModalityOtherSpecimen (Source)Anatomical Location / LateralityCollection Method / VolumeCollection TimeReceived Time06/02/2025 12:38 PM EDT Narrative 06/02/2025 12:39 PM EDT [facility] ?[address] ? [place] [address] ? Cardiology Report ? Signed ? Patient: JOO DURAN ?MR#: [id number] ?? : 1940 ?Acct:[id number] ?? Age/Sex: 84 / M ?ADM Date: 06/02/25 ?? Loc: CARD ? Attending Dr: VALERIA STOKES VICTORIAN LITERATURE PROFESSOR ? Ordering Physician: VALERIA STOKES APRN ?? Date of Service: 06/02/25 ?? Procedure(s): CA echo doppler complete ?? Accession Number(s): [id number] ? cc: SAI ANDERSON ; VALERIA STOKES APRN ? Patient Name: ? JOO ALEJANDRO ? MR#: [id number] ? : 1940 ? Exam Date: 06/02/2025 [...] ? 2.47 cm2, 2.54 cm2 ?? Deceleration [place]: ? 3.57 m/s2, 2.15 m/s2 ?? Pressure [...] By: ?Jesse Cabrera M.D. ? Signed By: ?06/02/25 1239 ? DD/ 1238 ? TD/TT: ? Construction Site Manager: Procedure Note Radiology, Radiologist, - 06/02/2025 [place] [address] Cardiology Report Signed Patient: JOO DURAN AMR#: [id number] : 1940Acct:[id number] Age/Sex: 84 / MADM Date: 06/02/25 Loc: CARD Attending Dr: VALERIA STOKES APRN Ordering Physician: VALERIA STOKES APRN Date of Service: 06/02/25 Procedure(s): CA echo doppler complete Accession Number(s): [id number] cc: SAI ANDERSON ; VALERIA STOKES APRN Patient Name: JOO DURAN MR#: [id number] : 1940 Exam Date: 06/02/2025 Ordering Doctor: VALERIA STOKES [facility] ECHOCARDIOGRAM REPORT PROCEDURE: CA ECHO DOPPLER COMPLETE [...] Area (VTI): 2.47 cm2, 2.54 cm2 Deceleration [place]: 3.57 m/s2, 2.15 m/s2 Pressure Half-Time: 379.59 [...] M.D. Signed By:06/02/25 1239 DD/ 1238 TD/TT: Construction Site Manager: Authorizing ProviderResult TypeResult StatusGeneric External Data Provider [facility]NC IMAGINGFinal Result from Last 3 Months Insurance Advance Directives TypeDate RecordedPatient RepresentativeExplanationAdvance Directives and Living Will poaAdvance Directives and Living Will Power of Waste Water Worker Care Teams Team MemberRelationshipSpecialtyStart DateEnd Date Sai Anderson MD [address] [address] PCP - Devoted09/16/20 Sai Anderson MD [address] [address] PCP - GeneralFamily Medicine01/23/23 Jr. Marcial Borrero DO [address] [address] Referring PhysicianOrthopaedic Surgery03/23/25 Jesse Cabrera MD [address] [place] [address] Referring PhysicianCardiology03/23/25 Antonina Albrecht MD [address] [facility] [place] [address] Referring PhysicianDermatology03/23/25 Andreea Sousa, COMPARISON SHOPPER [address] [facility] [place], [place] [address] Social WorkerFami Kgscofwc02/14/25
--- OUTSIDE RECORDS SUMMARY | 2025-08-24 22:21 | XMS_ITS | Encounter Summary ---
Author Organization [facility] Address [address] [place] [address] Care Team Providers Care Analyst Microbiology Lab Name Role Phone Sai Landrum MD Unavailable [phone] Sai Landrum MD Primary Care Provider [phone] Jr. Marcial Borrero DO Unavailable [phone] Jesse Cabrera MD Unavailable [phone] Antonina Albrecht MD Unavailable Andreea Sousa SHIFT COORDINATOR Unavailable Encounter Details DateTypeDepartmentCare Team (Latest Contact Info)Malwikxhzey79/03/2025Bamboo flowsheet [facility] [address] [facility] [address] [place] [address] Jr. Marcial Borrero, DO 112 [facility] 150 [place] [address] Social History Tobacco UseTypesPacks/DayYears UsedDateSmoking Tobacco: NeverSmokeless Tobacco: NeverAlcohol UseStandard Drinks/EqvqOopjbyomSwr99 (1 standard drink = 0.6 oz pure alcohol)PHQ-2AnswerDate RecordedPatient Health Questionnaire-2 Score0 07/27/2025Sex and Gender InformationValueDate RecordedSex Assigned at BirthNot on fileLegal VqnRonf1511/28/2022 8:13 PM EDTGender IdentityNot on fileSexual OrientationNot on filedocumented as of this encounter Plan of Treatment DateTypeDepartmentCare Team (Latest Contact Info)Dqeswaciihj84/10/2025 2:00 PM ESTOffice Visit [facility] [place] [facility] Family Medicine [address] [facility] 100 [place] [address] Sai Landrum MD [address] [place] [address] (Fax) 09/22/2025 2:45 PM ESTOffice Visit [facility] [address] [facility] [address] [place] [address] Jr. Marcial Borrero, [address] [facility] [address] [place] [address] 01/19/2026 10:00 AM EDTOffice Visit [facility] [place] 100 Family Medicine 112 [facility] 100 [place] [address] Sai Landrum MD [address] [facility] 100 [place] [address] (Fax) documented as of this encounter Visit Diagnoses Not on filedocumented in this encounter Additional Health Concerns AssessmentNoted TimePHQ-9 Depression Total Score: 9:00 AM EDT documented as of this encounter Care Teams Team MemberRelationshipSpecialtyStart DateEnd Date Sai Landrum MD 112 [facility] 100 [place] [address] (Fax) PCP - Devoted09/16/20 Sai Landrum MD [address] [facility] 100 [place] [address] (Fax) PCP - GeneralFamily Medicine01/23/23 Jr. Marcial Borrero DO [address] [facility] [address] [place] [address] Referring PhysicianOrthopaedic Surgery03/23/25 Jesse Cabrera MD [address] [place] [address] Referring PhysicianCardiology03/23/25 Antonina Albrecht MD [address] [place] [address] Referring PhysicianDermatology03/23/25 Andreea Sousa, SHIFT COORDINATOR [address] [place] [address] Social WorkerFamily Xplgpcje45/14/25documented as of this encounter
--- OUTSIDE RECORDS SUMMARY | 2025-08-24 22:21 | XMS_ITS | Encounter Summary ---
Author Organization [facility] Address [address] [place] [address] Care Team Providers Care Shipboard Intelligence Analyst Name Role Phone Sai Landrum MD Unavailable [phone] Sai Landrum MD Primary Care Provider [phone] Jr. Marcial Borrero DO Unavailable [phone] Jesse Cabrera MD Unavailable [phone] Antonina Albrecht MD Unavailable Andreea Sousa Unavailable [phone] Reason for Visit * ReasonCommentsMed Refill Encounter Details DateTypeDepartmentCare Team (Latest Contact Info)Aszdoyofjsz06/12/2025Telephone [facility] [place] [facility] Family Medicine [address] [place] [address] Sai Landrum MD 112 [facility] 100 [place] [address] Med Refill Social History Tobacco UseTypesPacks/DayYears UsedDateSmoking Tobacco: NeverSmokeless Tobacco: NeverAlcohol UseStandard Drinks/GfunNwtqhjalQnx63 (1 standard drink = 0.6 oz pure alcohol)PHQ-2AnswerDate RecordedPatient Health Questionnaire-2 Score0 07/27/2025Sex and Gender InformationValueDate RecordedSex Assigned at BirthNot on fileLegal WwxXhmd8711/28/2022 8:13 PM EDTGender IdentityNot on fileSexual OrientationNot on filedocumented as of this encounter Progress Notes * CHALINO Awan - 08/05/2025 12:27 PM EST <August 05, 2025, 12:27 - CHALINO Awan> LM for Chica requesting call back to give message from <August 06, 2025, 12:00 - CHALINO Awan> 2nd attempt to call Chica. Left detailed message advising of increased Lyrica dose and to call with any questions. documented in this encounter Miscellaneous Notes * Telephone Encounter - Sai Landrum MD - 08/03/2025 1:22 PM EST Reviewed. Already sent oxycodone in so he is not stuck while we sort this out. Sent increased dosage of pregabalin in. Once she gets the new prescription, put the 50 mg capsules on the shelf, we may be able to use them later. Also remind her that this is 3 times a day regularly. * Telephone Encounter - Acacia Romero MA - 08/03/2025 10:58 AM EST Pt was notified about the percocet script and I advised her I would forward the message to both and Gissell so that they both knew that the Lyrica was not helping his pain and that she was wishing for Gissell to refill the percocet. * Telephone Encounter - Acacia Romero MA - 08/03/2025 7:45 AM EST Andreea can you check this later this morning. They are not super early risers. * Telephone Encounter - Sai Landrum MD - 08/03/2025 7:32 AM EST Chart reviewed. Dr. Borrero prescribed a dose oxycodone from the office visit. While this is appropriate, she should not have both doctors prescribing oxycodone. PDMP reviewed and as expected. Also check with her to see if the pregabalin is helping his pain some. I understand he has just gotten started on it but I would expect it to be giving him some help at this point. Also wanting to make sure he is tolerating it. * Telephone Encounter - Acacia Romero MA - 08/02/2025 3:07 PM EST Chica called and stated Michele was almost out of his percocet. documented in this encounter Plan of Treatment DateTypeDepartmentCare Team (Latest Contact Info)Nzuajngunzz32/10/2025 2:00 PM ESTOffice Visit [facility] [place] 100 Family [facility] 112 [facility] 100 [place] [address] Sai Landrum MD 112 [facility] 100 [place] [address] (Fax) 09/22/2025 2:45 PM ESTOffice Visit [facility] [address] [place] [id number] Jr. Marcial Borrero DO 112 [facility] 150 [place] [address] 01/19/2026 10:00 AM EDTOffice Visit [facility] [address] 112 [facility] 100 [place] [address] Sai Landrum MD 112 [facility] 100 [place] [address] documented as of this encounter Visit Diagnoses Diagnosis Postoperative pain Other acute postoperative pain Closed fracture of left hip with routine healing Chronic pain syndrome documented in this encounter Additional Health Concerns AssessmentNoted TimePHQ-9 Depression Total Score: 307 9:00 AM EDT documented as of this encounter Care Teams Team MemberRelationshipSpecialtyStart DateEnd Date Sai Landrum MD [address] [place] [address] [address] PCP - Devoted09/16/20 Sai Landrum MD [address] [place] [address] [address] PCP - GeneralFamily Medicine01/23/23 Jr. Marcial Borrero DO [address] [address] Referring PhysicianOrthopaedic Surgery03/23/25 Jesse Cabrera MD [address] [place] [address] Referring PhysicianCardiology03/23/25 Antonina Albrecht MD [address] [place] [address] Referring PhysicianDermatology03/23/25 Andreea Sousa, [employer] [address] [place] [address] Social WorkerFamily Eyjofnpw15/14/25documented as of this encounter
--- OUTSIDE RECORDS SUMMARY | 2025-08-24 22:21 | XMS_ITS | Encounter Summary ---
Author Organization [facility] Address [address] [place] [address] Care Team Providers Care Carpet Cutter Name Role Phone Sai Landrum MD Unavailable [phone] Sai Landrum MD Primary Care Provider [phone] Jr. Marcial Borrero DO Unavailable [phone] Jesse Cabrera MD Unavailable [phone] Antonina Albrecht MD Unavailable Andreea Sousa ELECTRIC MOTOR TESTER ASSEMBLER Unavailable [phone] Encounter Details DateTypeDepartmentCare Team (Latest Contact Info)Sokihmervom68/01/2025Abstract [facility] [address] [facility] 100 [place] [address] Sai Landrum MD 112 [facility] 100 [place] [address] Social History Tobacco UseTypesPacks/DayYears UsedDateSmoking Tobacco: NeverSmokeless Tobacco: NeverAlcohol UseStandard Drinks/XeleAfwuqykqGxr02 (1 standard drink = 0.6 oz pure alcohol)PHQ-2AnswerDate RecordedPatient Health Questionnaire-2 Score0 07/27/2025Sex and Gender InformationValueDate RecordedSex Assigned at BirthNot on fileLegal RoaWchf6611/28/2022 8:13 PM EDTGender IdentityNot on fileSexual OrientationNot on filedocumented as of this encounter Plan of Treatment DateTypeDepartmentCare Team (Latest Contact Info)Uqlwxzvrbew06/10/2025 2:00 PM ESTOffice Visit [facility] [place] [facility] Family Medicine [address] [place] [address] Sai Landrum MD [address] [place] [address] (Fax) 09/22/2025 2:45 PM ESTOffice Visit [facility] [address] [facility] [address] [place] [address] Jr. Marcial Borrero, [address] [facility] 150 [place] [address] 01/19/2026 10:00 AM EDTOffice Visit [facility] [place] [address] [facility] 100 [place] [address] Sai Landrum MD 112 [facility] 100 [place] [address] (Fax) documented as of this encounter Visit Diagnoses Not on filedocumented in this encounter Additional Health Concerns AssessmentNoted TimePHQ-9 Depression Total Score: 9:00 AM EDT documented as of this encounter Care Teams Team MemberRelationshipSpecialtyStart DateEnd Date Sai Landrum MD 112 [facility] 100 [place] [address] (Fax) PCP - Devoted09/16/20 Sai Landrum MD 112 [facility] 100 [place] [address] (Fax) PCP - GeneralFamily Medicine01/23/23 Jr. Marcial Borrero DO [address] [facility] [address] [place] [address] Referring PhysicianOrthopaedic Surgery03/23/25 Jesse Cabrera MD [address] [place] [address] Referring PhysicianCardiology03/23/25 Antonina Albrecht MD [address] [place] [address] Referring PhysicianDermatology03/23/25 Andreea Sousa, ELECTRIC MOTOR TESTER ASSEMBLER [address] [place] [address] Social WorkerFamily Umzdwbok92/14/25documented as of this encounter
== END 2025-08-25 00:31 | disposition home or self-care (01) ==
PROVIDERS: Emergency Provider Internal Medicine; PCP Family Medicine
DX: K59.00 Constipation, unspecified (principal); R10.9 Unspecified abdominal pain
CPT/HCPCS: 74018; 99283